=== PATIENT | female | born 1975 | race American Indian/Alaskan Native ===

== ENCOUNTER → 2020-03-22 14:40 | Outpatient (BNVA) | payer SELFPAY | PROVIDERS: PCP Nurse Practitioner Family; Visit Provider Surgery | DX: N64.4 Mastodynia (principal); N63.11 Unspecified lump in the right breast, upper outer quadrant; D05.11 Intraductal carcinoma in situ of right breast; Z92.3 Personal history of irradiation | CPT/HCPCS: 99212 ==

== ENCOUNTER 2020-03-28 08:52 | Outpatient (REF) | payer SELFPAY ==
--- NOTE | 2020-03-28 08:58 | US_ITS ---
EXAMINATION: US ULTRASOUND-GUIDED CYST ASPIRATION BREAST, RIGHT CLINICAL INFORMATION: Right breast pain upper outer quadrant related to fibrocystic changes. 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 Aspiration for therapeutic relief, discard fluid. COMPARISON: Ultrasound right breast 01/01/2020, 09/08/2019 FINDINGS: Proper informed consent is obtained from the patient after discussion of the procedure, potential risks and complications, and alternatives. Patient was given an opportunity for questions. The patient appeared to understand. The patient consented to the procedure and signed the consent form. LOCATION: Upper outer quadrant right breast. GUIDANCE: Ultrasound-guided; aseptic technique. LESION 1: Simple cyst upper outer quadrant 7 cm from nipple 1.6 x 1.1 cm. APPROACH: Lateral medial ANESTHESIA: 6 mL 1% lidocaine NEEDLE: 23-gauge straight needle. ASPIRATION: 1 mL transparent straw-colored fluid aspirated and discarded as per local practice protocol. LESION 2: There is a smaller cyst also noted in the symptomatic area, more central and deeper from skin, measuring 1.0 x 0.7 cm. This is also aspirated from lateral medial approach and 6 mL 1% lidocaine local anesthesia. An 18-gauge spinal needle was used for aspiration with 0.5 mL similar fluid, also discarded. US/US breast RT limited IMPRESSION: 2 simple cysts upper outer right breast aspirated for therapeutic relief right breast pain. ASSESSMENT: BI-RADS 2: Benign RECOMMENDATION: Annual bilateral mammography. This patient's information was entered into a reminder system with a target due date for their next mammogram.
--- NOTE | 2020-03-28 08:58 | US_ITS ---
EXAMINATION: US ULTRASOUND-GUIDED CYST ASPIRATION BREAST, RIGHT CLINICAL INFORMATION: Right breast pain upper outer quadrant related to fibrocystic changes. 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 Aspiration for therapeutic relief, discard fluid. COMPARISON: Ultrasound right breast 01/01/2020, 09/08/2019 FINDINGS: Proper informed consent is obtained from the patient after discussion of the procedure, potential risks and complications, and alternatives. Patient was given an opportunity for questions. The patient appeared to understand. The patient consented to the procedure and signed the consent form. LOCATION: Upper outer quadrant right breast. GUIDANCE: Ultrasound-guided; aseptic technique. LESION 1: Simple cyst upper outer quadrant 7 cm from nipple 1.6 x 1.1 cm. APPROACH: Lateral medial ANESTHESIA: 6 mL 1% lidocaine NEEDLE: 23-gauge straight needle. ASPIRATION: 1 mL transparent straw-colored fluid aspirated and discarded as per local practice protocol. LESION 2: There is a smaller cyst also noted in the symptomatic area, more central and deeper from skin, measuring 1.0 x 0.7 cm. This is also aspirated from lateral medial approach and 6 mL 1% lidocaine local anesthesia. An 18-gauge spinal needle was used for aspiration with 0.5 mL similar fluid, also discarded. US/US breast cyst asp RT IMPRESSION: 2 simple cysts upper outer right breast aspirated for therapeutic relief right breast pain. ASSESSMENT: BI-RADS 2: Benign RECOMMENDATION: Annual bilateral mammography. This patient's information was entered into a reminder system with a target due date for their next mammogram.
== END 2020-03-28 08:53 | disposition home or self-care (01) ==
LOC: HO.MAMMO 08:52
PROVIDERS: PCP Nurse Practitioner Family; Visit Provider Surgery
DX: N63.11 Unspecified lump in the right breast, upper outer quadrant (principal)
CPT/HCPCS: 19000; 76642

== ENCOUNTER → 2020-04-05 15:19 | Outpatient (BNVA) | payer SELFPAY | PROVIDERS: PCP Nurse Practitioner Family; Visit Provider Surgery | DX: D05.11 Intraductal carcinoma in situ of right breast (principal); N64.4 Mastodynia; I89.0 Lymphedema, not elsewhere classified; Z92.3 Personal history of irradiation | CPT/HCPCS: 99212 ==

== ENCOUNTER 2020-04-11 15:50 | Emergency (ER) | payer SELFPAY ==
[2020-04-11 17:34] VITALS: BP 125/59; PULSE 71; RESP 16; TEMP 36.8; O2SAT 100; BMI 20.6
--- NOTE | 2020-04-11 17:55 | ED.SKABFB ---
HPI - Skin/Abscess/Foreign Bdy General Chief complaint: Skin/Abscess/Foreign Body Stated complaint: right arm pain Time Seen by Provider: 04/11/20 17:46 Source: patient Mode of arrival: ambulatory Limitations: no limitations History of Present Illness HPI narrative: 45-year-old female with history of breast CA status post cyst aspiration right breast as well as radiation history of DCIS right breast again required excision lumpectomy performed 09/23/[address]. [address] Gamez and also saw the breast center she had a cyst from the right inferior axilla/lateral breast area drained a week ago she reports and since then she has been having burning like sensation there. She does report that she has had this before but worsened after the I& D. She denies any chest pain or shortness of breath. Denies any rash or swelling. Onset (ago): day(s) Tetanus up to date: yes Location: chest Severity: mild Relieving factors: cold therapy Exacerbating factors: none Context: none Associated symptoms: denies other symptoms Treatments prior to arrival: none Related Data Home Medications Medication Instructions Recorded Confirmed ibuprofen 800 mg tablet 800 mg PO BID tab 03/22/20 03/22/20 lisinopril 5 mg tablet 5 mg PO DAILY 03/22/20 03/22/20 Allergies Allergy/AdvReac Type Severity Reaction Status Date / Time No Known Allergies Allergy Verified 04/05/20 15:37 [No Known Allergies*] Review of Systems Review of Systems: Constitutional: No Weight loss, No Fever, No Chills, No Night Sweats, No Fatigue, No Malaise ENT/Mouth: No Hearing loss, No Ear Pain, No Nasal Congestion, No Sinus Pain, No Hoarseness, No sore throat, No Rhinorrhea, No Swallowing Difficulty Eyes: No Eye Pain, No Swelling, No Redness, No Foreign Body, No Discharge, No Vision Changes Cardiovascular: No Chest Pain, No SOB, No Dyspnea on Exertion, No Orthopnea, No Edema, No Palpitations Respiratory: No Cough, No Sputum, No Wheezing, No Smoke Exposure, No Dyspnea Gastrointestinal: No Nausea, No Vomiting, No Diarrhea, No Constipation, No abdominal Pain, No Hematochezia, No Melena Genitourinary: no irregular bleeding, No Dysuria, No Urinary Frequency, No Hematuria, No Urinary Incontinence, No Urgency, No Flank Pain, No Urinary Flow Changes, No Hesitancy Musculoskeletal: No joint pain, No Myalgias, No Joint Swelling Skin: No Skin Lesions, No rash, burning like sensation to the right axilla/chest area. Neuro: No Weakness, No Numbness, No Paresthesias, No Loss of Consciousness, No Dizziness, No Headache Psych: No Anxiety/Panic Heme/Lymph: No Bruising, No Bleeding,No Lymphadenopathy Endocrine: No Polyuria, No Polydipsia, No Temperature Intolerance Yes all other systems are reviewed and are negative [facility] Past Medical History Medical History Ductal carcinoma in situ (DCIS) of right breast Gout Hypertension Hypothyroidism Surgical History History of lumpectomy of right breast Family History Family History Daughter No problems noted. Social History Social History Smoking Status: Never smoker Use of substances other than those prescribed or required for medical reasons: No Advance Directives: No Advance Directives Information Provided: Yes Physical Exam Vital Signs: Vital Signs: Last Vital Signs Temp 98.2 F 04/11/20 17:34 Pulse 71 04/11/20 17:34 Resp 16 04/11/20 17:34 BP 125/59 L 04/11/20 17:34 Pulse Ox 100 04/11/20 17:34 Body Mass Index 20.6 Reviewed Const: General: cooperative and healthy appearing; No acute distress or intoxicated appearing Nutritional Appearance: average body habitus Orientation/consciousness: patient oriented x3 HENMT: Head: Yes normal to inspection Ears: hearing grossly normal bilaterally Eyes: General: appearance normal, both eyes and all related structures Visual [place]: normal visual lunsford by confrontation Neck: Neck: Yes normal visual inspection, No positive Brudzinski's sign, No positive Kernig's sign and No tender Thyroid: Thyroid normal Chest: Chest palpation & inspection: normal inspection of the chest Chest/axillae images: 1. 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 Resp: Effort & Inspection: normal respiratory effort Cardio: Jugular venous distension: no JVD : General: Yes no CVA tenderness Back/Spine/Pelvis: Back: no CVA tenderness Skin: General skin exam: no rashes or lesions noted Neuro: General: patient oriented x3 Extrem: General: Yes normal to inspection Course Course Course Narrative: 180 Correction patient reports that she had the cyst drained on the 28 of March at the breast center and subsequently saw Dr. Gamez in the office I did reviewed office note from Dr. Nessa Gamez on April 05 where she had the similar complaint of the burning like sensation. Moreover there is no signs of acute infection at this location there is the anterior cutaneous branches of the intercostal nerve route from the T1-11 and likely when the aspiration occurred on the this nerve was irritated. At this time given that she did undergo the needle aspiration will get chest x-ray to make sure there is no pneumothorax though clinical suspicion is very low for this. There is no signs infection at this site. Pain is more neurovascular rather than infectious in pathology. 1809 Case signed out to Celestino pending x-ray results if these are fine patient will go home with NSAIDs and follow-up. Discharge Plan Discharge Prescriptions: No Action lisinopril 5 mg tablet 5 mg PO DAILY RF: 0 ibuprofen 800 mg tablet 800 mg PO BID RF: 0
--- NOTE | 2020-04-11 17:57 | XR_ITS ---
EXAMINATION: XR RIBS, RIGHT CLINICAL INFORMATION: AEP positive COMPARISON: None TECHNIQUE: 3 views of the right ribs were obtained. FINDINGS: Lungs are clear. No consolidation, pneumothorax, or pleural effusion. The cardiomediastinal silhouette and pulmonary vasculature are normal. Osseous structures are unremarkable. Ribs are intact. No fractures are identified. XR/XR ribs RT min 3V w CXR1V IMPRESSION: Unremarkable examination.
[2020-04-11] MEDS: Gabapentin 100 MG CAPSULE PO (19:16)
== END 2020-04-11 19:20 | disposition home or self-care (01) ==
PROVIDERS: Emergency Provider Emergency Medicine Emergency Medical Services; PCP Nurse Practitioner Family
DX: M79.601 Pain in right arm (principal); I10 Essential (primary) hypertension; Z79.899 Other long term (current) drug therapy
CPT/HCPCS: 71101; 99283; 99284

== ENCOUNTER → 2020-06-29 15:15 | Outpatient (BNVA) | payer OTHER, SELFPAY | PROVIDERS: PCP Nurse Practitioner Family; Visit Provider Surgery | DX: D05.11 Intraductal carcinoma in situ of right breast (principal) | CPT/HCPCS: 99212 ==

== ENCOUNTER → 2020-07-25 10:54 | Outpatient (BNV) | payer MEDICAID, OTHER, SELFPAY | PROVIDERS: Visit Provider Internal Medicine | DX: D05.11 Intraductal carcinoma in situ of right breast (principal) | CPT/HCPCS: 99212; 99213; 99214 ==

== ENCOUNTER → 2020-08-26 10:52 | Outpatient (BNVA) | payer OTHER, SELFPAY | PROVIDERS: PCP Nurse Practitioner Family; Visit Provider Surgery | DX: D05.11 Intraductal carcinoma in situ of right breast (principal); I89.0 Lymphedema, not elsewhere classified | CPT/HCPCS: 99212 ==

== ENCOUNTER 2020-09-06 14:46 | Outpatient (REF) | payer OTHER, SELFPAY ==
--- NOTE | ~2020-09-06 | MM_ITS ---
EXAMINATION: MM DIAGNOSTIC DIGITAL BREAST TOMOSYNTHESIS, BILATERAL US DIAGNOSTIC ULTRASOUND BREAST, BILATERAL CLINICAL INFORMATION: 45-year-old with recent right breast pain lower inner and posterior upper outer treated with course antibiotics, finished within past 36 hours. History right lumpectomy for breast cancer 09/23/2019, and RT 11/2019. Prior history fibrocystic changes. Due for yearly. COMPARISON: 09/01/2019, 01/29/2019, 09/05/2018, 03/07/2018, 08/12/2017, 05/22/2016, 03/25/2015; right breast needle localization 09/23/2019, stereotactic biopsy right breast 09/08/2019. TECHNIQUE: Digital breast tomosynthesis is performed in both the craniocaudal and mediolateral oblique views along with computer-aided detection (CAD). Synthesized 2D images are generated from the tomosynthesis. Additional right breast views with scar marker is obtained. Additional magnification right CC and right ML views obtained. Ultrasound left breast is targeted to the upper outer quadrant. Ultrasound right breast is targeted to the areas of clinical concern lower inner quadrant and upper outer quadrant and axilla. Grayscale imaging and color Doppler are performed without and with harmonics. FINDINGS: The breasts are heterogeneously dense, which may obscure small masses (ACR BI-RADS breast composition Category c). There is fibrocystic parenchymal pattern greater on left. Waxing and waning masses are seen, one may be new posterior 2:00 position left breast. There are minor postsurgical changes on right. No mass or architectural abnormality or abnormal calcifications. Ultrasound left breast demonstrates numerous simple cysts in the posterior upper outer quadrant, largest 2.2 cm in diameter. There is no solid mass or complex cyst. Findings correspond to the mammography exam. Ultrasound right breast demonstrates no cystic or solid mass or architectural abnormality. No skin thickening or edema tracking in soft tissue planes. No focal duct ectasia or hyperemia. No axillary adenopathy. Results are discussed with the patient at time of visit. Patient notes she has upcoming appointment with surgeon for follow-up. MM/MM tomosynthesis diagnostic BI IMPRESSION: 1. No mammographic evidence of malignancy or focal inflammatory changes. 2. Fibrocystic changes with numerous cysts upper outer left breast. 3. Unremarkable targeted right breast ultrasound. ASSESSMENT: BI-RADS 2: Benign RECOMMENDATION: 1. Patient should be managed based on the clinical impression. 2. Otherwise, routine annual screening mammography. This patient's information was entered into a reminder system with a target due date for their next mammogram.
== END 2020-09-06 14:47 | disposition home or self-care (01) ==
LOC: HO.MAMMO 14:46
PROVIDERS: Visit Provider Internal Medicine
DX: D05.11 Intraductal carcinoma in situ of right breast (principal)
CPT/HCPCS: 76642; 77062; 77066

== ENCOUNTER → 2020-09-27 15:44 | Outpatient (BNVA) | payer MEDICAID, SELFPAY | PROVIDERS: PCP Nurse Practitioner Family; Visit Provider Surgery | DX: M79.89 Other specified soft tissue disorders (principal); D05.11 Intraductal carcinoma in situ of right breast | CPT/HCPCS: 99212 ==

== ENCOUNTER 2020-10-05 14:56 | Outpatient (REF) | payer MEDICAID, SELFPAY ==
--- NOTE | ~2020-10-05 | US_ITS ---
EXAMINATION: US DIAGNOSTIC ULTRASOUND BREAST, RIGHT CLINICAL INFORMATION: 45-year-old with history right lumpectomy for breast cancer 09/23/2019, and RT 11/2019. Prior history fibrocystic changes. Palpable cord posterior right axilla on clinical exam. Right axillary swelling. Tenderness upper outer right breast noted by patient. COMPARISON: Mammography 09/06/2020, ultrasound breasts 09/06/2020. TECHNIQUE: Ultrasound right breast and axilla is performed using grayscale imaging and color Doppler without and with harmonics. Additional imaging extended around posterior lateral right chest wall in area of symptoms as directed by the patient. FINDINGS: There is no focal suspicious finding. There is no solid mass, architectural abnormality, duct ectasia, or edema in the soft tissue planes. There are 2 incidental cysts right breast upper outer quadrant 9:00 position, both under 1 cm and anechoic with increased through-transmission of sound. There is no hyperemia. Additional imaging right axilla shows no lymphadenopathy. There is no axillary venous thrombosis. Results are discussed with the patient at time of visit. US/US breast RT limited IMPRESSION: 1. Unremarkable targeted right breast ultrasound. 2. No axillary adenopathy or axillary venous thrombosis. 3. Two small incidental cysts posterior lateral right breast, under 1 cm. ASSESSMENT: BI-RADS 2: Benign RECOMMENDATION: 1. Patient should be managed based on the clinical impression. 2. Otherwise, annual screening mammography. This patient's information was entered into a reminder system with a target due date for their next mammogram.
== END 2020-10-05 14:57 | disposition home or self-care (01) ==
LOC: HO.MAMMO 14:56
PROVIDERS: Visit Provider Surgery
DX: D05.11 Intraductal carcinoma in situ of right breast (principal); M79.89 Other specified soft tissue disorders
CPT/HCPCS: 76642

== ENCOUNTER 2020-10-27 11:27 | Outpatient (REF) | payer MEDICAID, SELFPAY ==
--- NOTE | ~2020-10-27 | CT_ITS ---
EXAMINATION: CT ANGIOGRAM OF THE CHEST WITH AND WITHOUT CONTRAST (CT PULMONARY ANGIOGRAM FOR PE) CLINICAL INFORMATION: Reason for Exam rt chest pain. History right lumpectomy for DCIS 09/23/2019, RT 11/2019. COMPARISON: Chest radiograph 04/11/2020 TECHNIQUE: Prior to contrast administration, noncontrast localization images were obtained. Subsequently, multidetector volumetric imaging was performed from the thoracic inlet to below the diaphragms following the administration of 80 mL Omnipaque 350 intravenous contrast. Sagittal, coronal, and MIP oblique sagittal reformatted images were obtained on the CT workstation, uploaded to PACS, and reviewed. This CT examination was performed using dose optimization techniques as appropriate, variously including the following: *Automated exposure control *Adjustment of mA and/or kV according to patient size (this includes techniques or standardized protocols for targeted exams where dose is matched to indication/reason for exam; i.e. extremities or head) *Use of iterative reconstruction technique Total exam dose-length product 80 mGy-cm FINDINGS: QUALITY OF STUDY/CONTRAST BOLUS: Satisfactory. PULMONARY ARTERIES: No central or segmental pulmonary emboli. THORACIC AORTA: No aneurysm or dissection. LUNG: There is no airspace consolidation or groundglass opacity. No mass or nodule. Some borderline bilateral apical pleural-parenchymal scarring is present. There are minor accentuated subpleural lines right anterior lateral chest likely related to the radiation therapy. No pneumothorax. PLEURA: No pleural thickening or effusion. MEDIASTINUM: Normal heart size. No pericardial effusion. No hilar or mediastinal lymphadenopathy. No evidence of septal bowing or right heart strain. CHEST WALL/AXILLA: No axillary or internal mammary lymphadenopathy. OSSEOUS STRUCTURES: No acute or suspicious osseous abnormality. UPPER ABDOMEN: Unremarkable. CT/CT angio chest PE protocol IMPRESSION: 1. No pulmonary embolism. No thoracic aneurysm or dissection. 2. Lungs clear. No airspace consolidation, pneumothorax, effusion. VTE: negative
[2020-10-27] MEDS: iohexoL 350 MG/ML 100 ML INFUS..BTL IV (12:20)
== END 2020-10-27 11:28 | disposition home or self-care (01) ==
LOC: HO.CT 11:27
PROVIDERS: PCP Nurse Practitioner Family; Visit Provider Internal Medicine
DX: R07.89 Other chest pain (principal)
CPT/HCPCS: 71275; Q9967

== ENCOUNTER 2020-10-31 18:54 | Emergency (ER) | payer MEDICAID, SELFPAY ==
[2020-10-31 18:57] VITALS: BP 141/66; PULSE 76; RESP 18; TEMP 36.8; O2SAT 99; BMI 20.2
[2020-10-31 20:00] VITALS: BP 133/64; PULSE 77; RESP 16; O2SAT 100
[2020-10-31 21:17] LABS: Appearance Urine CLEAR; Color Urine YELLOW; Glucose Urine UA NEG (NEG); Leukocyte Esterase Urine NEG (NEG); Nitrite Urine NEG (NEG); Specific Gravity - Urine 1.025 (1.005-1.025); Urine Blood NEG (NEG); Urine Ketones 5 MG/DL (NEG); Urine Protein NEG (NEG-TRACE)
--- NOTE | 2020-10-31 21:20 | ED_ITS ---
HPI - General Adult General Chief complaint: General Medical Stated complaint: Multiple Complaints Time Seen by Provider: 10/31/20 21:20 Source: patient Mode of arrival: ambulatory History of Present Illness HPI narrative: This is a 45-year-old female who presents with decreased hearing this is not associated with fevers, chills, headache, speech deficits, or tooth pain. Otherwise, patient denies shortness of breath, chest pain/palpitations, urinary pain/burning/frequency. Related Data Home Medications Medication Instructions Recorded Confirmed ibuprofen 800 mg tablet 800 mg PO BID tab 03/22/20 08/26/20 lisinopril 5 mg tablet 10 mg PO DAILY 03/22/20 10/26/20 levothyroxine 125 mcg PO DAILY 07/25/20 08/26/20 topiramate 25 mg tablet 25 mg PO BEDTIME PRN 08/26/20 10/26/20 Previous Rx's Medication Instructions Recorded gabapentin 100 mg PO TID #30 cap 04/11/20 Allergies Allergy/AdvReac Type Severity Reaction Status Date / Time No Known Allergies Allergy Verified 04/05/20 15:37 [No Known Allergies*] Review of Systems Review of Systems: Pertinent positives and negatives as stated in HPI 10 point review of systems is otherwise negative. PMFSH Past Medical History Source: nursing notes reviewed Medical History Ductal carcinoma in situ (DCIS) of right breast Gout Hypertension Hypothyroidism Surgical History History of bilateral tubal ligation (2003) History of endometrial ablation (2010) History of lumpectomy of right breast (10/07/19) History of right breast biopsy (09/08/19) Family History Family History Daughter Thyroid cancer Paternal Grandmother Breast cancer Thyroid cancer Diabetes Sister Diabetes HTN (hypertension) Sister HTN (hypertension) Sister HTN (hypertension) Sister HTN (hypertension) Sister HTN (hypertension) Father Brain tumor Mother Heart attack Social History Social History Alcohol intake: current Alcohol intake frequency: holidays/special occasions only Patient Tobacco Use Status: Former Tobacco user Cigarette Packs Per Day: 4 Advance Directives: No Patient : No Physical Exam Vital Signs: Vital Signs: Last Vital Signs Temp 98.3 F 10/31/20 18:57 Pulse 77 10/31/20 20:00 Resp 16 10/31/20 20:00 BP 133/64 10/31/20 20:00 Pulse Ox 100 10/31/20 20:00 Body Mass Index 20.2 VITAL SIGNS: Reviewed. GENERAL: Well developed, well nourished, in no acute distress. HEAD: Normocephalic/atraumatic EYES: PERRLA, EOMI intact without pain, no nystagmus EARS: Ext canals without abnormality, right ear with cerumen impaction NOSE: Nares patent bilateral OROPHARYNX: no oral lesions noted, posterior pharynx clear LUNGS: Normal breath sounds. No adventitious sounds or accessory muscle use. SpO2<100> CARDIOVASCULAR: Regular rate and rhythm without noted murmurs ABDOMEN: Soft, non-tender, non-distended with bowel sounds. NEUROLOGIC: Alert and oriented x 4. Strength and sensation to light touch were grossly intact x 4, ambulates without instability, no pronator drift, no facial asymmetry. Course Course Course Narrative: This is a 45-year-old female with history and clinical presentation consistent with hearing in pain symptoms secondary to cerumen impaction. No evidence to suggest intracranial pathology, infection, or anemia. Patient was offered the option to either have the cerumen removed here in the emergency room or to go home and use [id number] methods. She chose to be discharged and use [id number] medications. Medical Decision Making Lab Data Labs: Lab Results 10/31/20 Range/Units 21:06 Urine Color YELLOW Urine Appearance CLEAR Urine pH 6.0 (5.0-8.0) Ur Specific [place] 1.025 (1.005-1.025) Urine Protein NEG (NEG-TRACE) MG/DL Urine Glucose (UA) NEG (NEG) MG/DL Urine Ketones 5 (NEG) MG/DL Urine Blood NEG (NEG) Urine Nitrite NEG (NEG) Ur Leukocyte Esterase NEG (NEG) Discharge Plan Discharge Clinical Impression: Cerumen impaction Patient Disposition: Home, Self-Care Additional Instructions: 1. Resume all home medications as prescribed. 2. Recommend [id number] Debrox for the use of cerumen removal, use as directed on the outside of the bottle. 3. Follow-up with your primary care provider in 2-3 days for re-evaluation. Return to the ER for any acute worsening of symptoms. Prescriptions: No Action levothyroxine 125 mcg Tablet 125 mcg PO DAILY RF: 0 gabapentin 100 mg capsule 100 mg PO TID Qty: 30 RF: 0 lisinopril 5 mg tablet 10 mg PO DAILY RF: 0 ibuprofen 800 mg tablet 800 mg PO BID RF: 0 topiramate 25 mg tablet 25 mg PO BEDTIME PRN (Reason: Migraine Headache) RF: 0 Referrals: [facility] [Primary Care Provider] - 2 days
== END 2020-10-31 21:46 | disposition home or self-care (01) ==
PROVIDERS: Emergency Provider Student in an Organized Health Care Education/Training Program
DX: H61.21 Impacted cerumen, right ear (principal)
CPT/HCPCS: 81003; 99283; 99284

== ENCOUNTER → 2020-11-04 09:10 | Outpatient (BNVA) | payer MEDICAID, SELFPAY | PROVIDERS: PCP Nurse Practitioner Family; Referring Provider Nurse Practitioner Family; Visit Provider Surgery | DX: D05.11 Intraductal carcinoma in situ of right breast (principal); I80.8 Phlebitis and thrombophlebitis of other sites | CPT/HCPCS: 99212 ==

== ENCOUNTER 2020-11-08 15:58 | Outpatient (REF) | payer MEDICAID, SELFPAY ==
--- NOTE | ~2020-11-08 | US_ITS ---
EXAMINATION: US ABDOMEN LIMITED CLINICAL INFORMATION: Right lateral rib pain. COMPARISON: None TECHNIQUE: Real-time imaging of the right flank along rib cage. FINDINGS: Imaging through the area of pain right flank, there is no visible mass or mass effect. No abnormal vascularity seen. US/US abdomen limited IMPRESSION: Unremarkable right lateral abdominal ultrasound.
== END 2020-11-08 15:59 | disposition home or self-care (01) ==
LOC: HO.US 15:58
PROVIDERS: Visit Provider Internal Medicine Medical Oncology
DX: I80.9 Phlebitis and thrombophlebitis of unspecified site (principal)
CPT/HCPCS: 76705; 76882

== ENCOUNTER → 2020-12-01 15:45 | Outpatient (BNVA) | payer MEDICAID, SELFPAY | PROVIDERS: PCP Nurse Practitioner Family; Referring Provider Nurse Practitioner Family; Visit Provider Surgery | DX: I80.8 Phlebitis and thrombophlebitis of other sites (principal); D05.11 Intraductal carcinoma in situ of right breast; M25.511 Pain in right shoulder | CPT/HCPCS: 99212 ==

== ENCOUNTER 2020-12-13 21:12 | Emergency (ER) | payer MEDICAID, SELFPAY ==
--- NOTE | ~2020-12-13 | XR_ITS ---
EXAMINATION: XR CHEST CLINICAL INFORMATION: Chest pain COMPARISON: CT angiogram chest 10/27/2020 TECHNIQUE: Frontal view of the chest was obtained. FINDINGS: No significant abnormality is noted involving the heart, lungs, mediastinum, bony thorax or soft tissues. XR/XR chest 1V IMPRESSION: Unremarkable examination.
--- NOTE | ~2020-12-13 | CT_ITS ---
EXAMINATION: CT ANGIOGRAM OF THE CHEST WITH AND WITHOUT CONTRAST (CT PULMONARY ANGIOGRAM FOR PE) CLINICAL INFORMATION: Reason for Exam cp COMPARISON: 10/27/2020 TECHNIQUE: Prior to contrast administration, noncontrast localization images were obtained. Subsequently, multidetector volumetric imaging was performed from the thoracic inlet to below the diaphragms following the administration of 80 mL Omnipaque 350 intravenous contrast. No contrast reaction reported Sagittal, coronal, and MIP oblique sagittal reformatted images were obtained on the CT workstation, uploaded to PACS, and reviewed. This CT examination was performed using dose optimization techniques as appropriate, variously including the following: *Automated exposure control *Adjustment of mA and/or kV according to patient size (this includes techniques or standardized protocols for targeted exams where dose is matched to indication/reason for exam; i.e. extremities or head) *Use of iterative reconstruction technique Total exam dose-length product 186 mGy-cm FINDINGS: QUALITY OF STUDY/CONTRAST BOLUS: Satisfactory. PULMONARY ARTERIES: No central or segmental pulmonary emboli. THORACIC AORTA: No aneurysm or dissection. LUNG: No focal consolidation, nodules or masses. Stable subpleural reticulation at the lung apices and anterior segment of the right upper lobe. PLEURA: No pleural effusion or pneumothorax. MEDIASTINUM: Normal heart size. No pericardial effusion. No hilar or mediastinal lymphadenopathy. No evidence of septal bowing or right heart strain. CHEST WALL/AXILLA: No axillary or internal mammary lymphadenopathy. OSSEOUS STRUCTURES: No acute or suspicious osseous abnormality. UPPER ABDOMEN: Unremarkable. No reflux of contrast into the hepatic veins to suggest elevated right heart pressures. CT/CT angio chest PE protocol IMPRESSION: No pulmonary embolism. No aortic aneurysm or dissection. No pneumonitis or parenchymal consolidation. VTE: negative
--- NOTE | 2020-12-13 21:15 | ECG_ITS ---
Test Reason : CP Blood Pressure : / mmHG Vent. Rate : 065 BPM Atrial Rate : 036 BPM P-R Int : 000 ms QRS Dur : 066 ms QT Int : 396 ms P-R-T Axes : 000 034 008 degrees QTc Int : 411 ms Normal sinus rhythm Septal infarct (cited on or before 13-DEC-2020) Abnormal ECG When compared with ECG of 13-DEC-2020 21:24, No significant changes seen Referred By: Vj Watts Electronically Signed By:Jose A Gaona
--- NOTE | 2020-12-13 21:20 | ECG_ITS ---
Test Reason : CHEST PAIN Blood Pressure : / mmHG Vent. Rate : 073 BPM Atrial Rate : 073 BPM P-R Int : 148 ms QRS Dur : 072 ms QT Int : 374 ms P-R-T Axes : -16 029 036 degrees QTc Int : 412 ms Normal sinus rhythm Septal infarct , age undetermined Abnormal ECG When compared with ECG of 27-MAR-2017 15:49, No significant change was found Referred By: Colin Wagner Electronically Signed By:Jose A Gaona
[2020-12-13 21:40] LABS: MANUAL DIFF FLAG NO
[2020-12-13 21:41] VITALS: BP 155/71; PULSE 74; RESP 16; TEMP 37.1; O2SAT 99; BMI 20.5
[2020-12-13 21:41] LABS: Basophils Absolute Auto 0.1 X10*3/uL (0.0-0.2); Basophils Percent Auto 0.7 % (0-2); Eosinophils Absolute Auto 0.1 X10*3/uL (0.0-0.4); Eosinophils Percent Auto 0.8 % (0-4); Hematocrit 39.3 % (37-47); Hemoglobin 13.6 g/dl (12.0-16.0); Imm Gran Abs Auto 0.04 X10*3/uL (0.00-0.03); Imm Gran Pct Auto 0.5 % (0.0-0.4); Lymphocytes Absolute Auto 2.9 X10*3/uL (1.2-4.9); Lymphocytes Percent Auto 33.3 % (20-40); Mean Corpuscular HGB Conc 34.6 g/dl (31.0-35.0); Mean Corpuscular Hemoglobin 32.2 pg (27.0-33.0); Mean Corpuscular Volume 92.9 fL (80-98); Mean Platelet Volume 9.7 fL (9.4-12.3); Monocytes Absolute Auto 0.7 X10*3/uL (0.1-1.2); Monocytes Percent Auto 7.5 % (2-11); Neutrophils Percent Auto 57.2 % (45-73); Platelet Count 183 X10*3/uL (160-400); Red Blood Count 4.23 X10*6/uL (4.20-5.50); Red Cell Distribution Width 12.4 % (11.0-16.0); White Blood Count 8.7 X10*3/uL (4.8-10.8)
[2020-12-13 22:07] LABS: Anion Gap 11 (12-20); Blood Urea Nitrogen 8 mg/dL (9-16); Calcium 9.1 mg/dL (8.4-10.2); Carbon Dioxide 22 mmol/L (22-29); Chloride 112 mmol/L (96-108); Creatinine Clr Calc Pharmacy 77.4; Estimated Glomerular Filt Rate > 60; Glucose Random 99 mg/dL (60-115); Potassium 3.8 mmol/L (3.3-5.1); Sodium 141 mmol/L (135-145)
[2020-12-13 22:26] LABS: Troponin-I High Sensitivity 65.5 ng/L (<3.5-17.0)
[2020-12-13 23:21] VITALS: BP 142/61; PULSE 67; RESP 16; O2SAT 99
--- NOTE | 2020-12-13 23:29 | PC.NURSE ---
Pt ambulating from the waiting room into room 13. Pt primarily Finnish speaking. Pt explains that she is having left sided CP, radiating into left arm with nausea. Pt reports that pain increases with inspiration and movement. Pt denies cardiac history but states her PCP found something and referred her to a Agronomy Advisor, pts appt is tomorrow. IV established, plan for repeat Trop @ 0030. VSS. Pt awaiting primary MD johnson.
--- NOTE | 2020-12-13 23:34 | ED_ITS ---
HPI - Chest Pain General Chief Complaint: Chest Pain Stated Complaint: cp Time Seen by Provider: 12/13/20 23:34 Source: patient Mode of arrival: ambulatory Limitations: no limitations History of Present Illness HPI narrative: Patient with history of hypertension no known coronary artery disease was resting in the bed around 21:00 noticed left-sided chest pain which is sharp tender to touch radiated to left shoulder increases on deep inspiration and left arm movements , slight shortness of breath no nausea no vomiting no cough patient never had similar pain in the past. Patient comes and goes lasting for few seconds no diaphoresis. 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 complaint: chest pain Related Data Home Medications Medication Instructions Recorded Confirmed ibuprofen 800 mg tablet 800 mg PO BID tab 03/22/20 11/04/20 levothyroxine 125 mcg tablet 125 mcg PO DAILY 07/25/20 11/04/20 topiramate 25 mg tablet 25 mg PO BEDTIME PRN 08/26/20 11/04/20 Previous Rx's Medication Instructions Recorded gabapentin 100 mg capsule 100 mg PO TID #30 cap 04/11/20 Allergies Allergy/AdvReac Type Severity Reaction Status Date / Time No Known Allergies Allergy Verified 04/05/20 15:37 [No Known Allergies*] Review of Systems Review of Systems: Constitutional : No Weight loss, No Fever, No Chills ENT/Mouth : No sore throat, No Rhinorrhea Eyes: No Eye Pain, No Swelling Cardiovascular : + Chest Pain, no palpitations Respiratory : No Cough, No Sputum, no shortness of breath Gastrointestinal : no Nausea, No Vomiting, No Diarrhea, No abdominal Pain, no bl ack stools Genitourinary : No Dysuria, No Urinary Frequency Musculoskeletal : No joint pain, No Myalgias, No Joint Swelling Skin : No Skin Lesions, No rash Neuro : No Weakness, No Numbness, No Dizziness, No Headache Psych : No Anxiety/Panic, No Depression Heme/Lymph: No Bruising, No Lymphadenopathy Endocrine : No Polyuria, No Polydipsia All other systems reviewed and are negative [facility] Past Medical History Medical History Ductal carcinoma in situ (DCIS) of right breast Gout Hypertension Hypothyroidism Surgical History History of bilateral tubal ligation (2003) History of endometrial ablation (2010) History of lumpectomy of right breast (10/07/19) History of right breast biopsy (09/08/19) Family History Family History Daughter Thyroid cancer Paternal Grandmother Breast cancer Thyroid cancer Diabetes Sister Diabetes HTN (hypertension) Sister HTN (hypertension) Sister HTN (hypertension) Sister HTN (hypertension) Sister HTN (hypertension) Father Brain tumor Mother Heart attack Social History Social History Alcohol intake: current Alcohol intake frequency: holidays/special occasions only Patient Tobacco Use Status: Former Tobacco user Cigarette Packs Per Day: 4 Advance Directives: No Advance Directives Information Provided: No Patient : No Physical Exam Vital Signs: Vital Signs: Last Vital Signs Temp 98.8 F 12/13/20 21:41 Pulse 58 12/14/20 04:16 Resp 16 12/14/20 04:16 BP 140/48 H 12/14/20 04:16 Pulse Ox 99 12/14/20 01:51 Body Mass Index 21.2 Appearance: Alert. Oriented X3. No acute distress. Eyes: PERRLA, No Nystagmus ENT: Pharynx normal. Oral Mucosa adarsh CVS: Normal heart rate and rhythm. Pulses normal. Tender to touch left 2nd intercostal space and front of the chest no murmur or gallop Respiratory: No respiratory distress. Equal air entry bilateral, no wheezing/rales/rhonchi Abdomen: Soft and nontender. Bowel sounds are present, no mass palpable, no CVA tenderness Skin: Skin warm and dry. Normal skin color. Normal skin turgor. Extremities: No lower extremity edema. No calf tenderness Neuro: Oriented X 3. No motor deficit. No sensory deficit.No cerebellar signs , cranial nerves II-XII intact MDM - Chest Pain MDM Narrative Medical decision making narrative: Patient atypical chest pain sharp in corrected tender to touch with no acute ischemic changes in the EKG high s ensitive troponin is elevated will repeat troponin give aspirin unlikely ischemic in nature. Will check D-dimer also to rule out PE 1:00 troponin is 1603.1 increased from 65.5 in 3 hours. Repeat EKG done which is normal sinus rhythm no acute ST wave changes early repolarization change in in lateral leads similar to that in the 1st EKG patient still complaining of pain in the left arm and the left chest. Patient was given 1 nitroglycerin sublingual without any response Case discussed Dr. Gaona heparin , CTA if pain continues transfer to [facility] Patient D-dimer 300 will do CTA chest. Patient's CTA chest negative responded to 2nd dose of nitro glycerin to pain level 10 now 120 am: Patient was given 4 mg of morphine of feeling much better still complaining of pain 06/22 4 am : Case discussed with Dr. Lares stakes player at [facility] who look at all the 3 EKGs which did not show any acute ischemic changes advised patient to be admitted to CCU at [facility] further evaluation. Patient is on heparin drip and nitroglycerin drip started Medical Records Data Attestation: I reviewed the patient's medical records. Lab Data Attestation: I reviewed the patient's lab results. Result diagrams: 12/13/20 21:34 12/13/20 21:34 Labs: Lab Results 12/13/20 12/13/20 12/13/20 Range/Units 21:34 21:34 21:34 WBC 8.7 (4.8-10.8) X10*3/uL RBC 4.23 (4.20-5.50) X10*6/uL Hgb 13.6 (12.0-16.0) g/dl Hct 39.3 (37-47) % MCV 92.9 (80-98) fL MCH 32.2 (27.0-33.0) pg MCHC 34.6 (31.0-35.0) g/dl RDW 12.4 (11.0-16.0) % Plt Count 183 (160-400) X10*3/uL MPV 9.7 (9.4-12.3) fL Immature Gran % (Auto) 0.5 H (0.0-0.4) % Neut % (Auto) 57.2 (45-73) % Lymph % (Auto) 33.3 (20-40) % [place] % (Auto) 7.5 (2-11) % Eos % (Auto) 0.8 (0-4) % Baso % (Auto) 0.7 (0-2) % Lymph # (Auto) 2.9 (1.2-4.9) X10*3/uL [place] # (Auto) 0.7 (0.1-1.2) X10*3/uL Eos # (Auto) 0.1 (0.0-0.4) X10*3/uL Baso # (Auto) 0.1 (0.0-0.2) X10*3/uL Abs Immat Gran (auto) 0.04 H (0.00-0.03) X10*3/uL Absolute Neuts (auto) 5.0 (2.0-8.3) X10*3/uL Absolute Nucleated RBC 0.000 (0.0-0.012) X10*3/uL Nucleated RBC % (auto) 0.0 (0.0-0.2) /100WBC PT (9.9-13.0) SEC INR (0.9-1.1) APTT (24.1-38.0) SEC D-Dimer NG/ML Sodium 141 (135-145) mmol/L Potassium 3.8 (3.3-5.1) mmol/L Chloride 112 H (96-108) mmol/L Carbon Dioxide 22 (22-29) mmol/L Anion Gap 11 L (12-20) BUN 8 L (9-16) mg/dL Creatinine 0.71 (0.5-1.4) mg/dL Estim Creat Clear Calc 77.4 Estimated GFR > 60 Random Glucose 99 (60-115) mg/dL Calcium 9.1 (8.4-10.2) mg/dL Troponin I High Sens 65.5 H* (<3.5-17.0) ng/L Beta HCG, Quant < 2 mIU/mL COVID-19 (SANDIE) (Negative) COVID-19 Clin Com 12/14/20 12/14/20 12/14/20 Range/Units 00:04 00:04 01:54 WBC (4.8-10.8) X10*3/uL RBC (4.20-5.50) X10*6/uL Hgb (12.0-16.0) g/dl Hct (37-47) % MCV (80-98) fL MCH (27.0-33.0) pg MCHC (31.0-35.0) g/dl RDW (11.0-16.0) % Plt Count (160-400) X10*3/uL MPV (9.4-12.3) fL Immature Gran % (Auto) (0.0-0.4) % Neut % (Auto) (45-73) % Lymph % (Auto) (20-40) % [place] % (Auto) (2-11) % Eos % (Auto) (0-4) % Baso % (Auto) (0-2) % Lymph # (Auto) (1.2-4.9) X10*3/uL [place] # (Auto) (0.1-1.2) X10*3/uL Eos # (Auto) (0.0-0.4) X10*3/uL Baso # (Auto) (0.0-0.2) X10*3/uL Abs Immat Gran (auto) (0.00-0.03) X10*3/uL Absolute Neuts (auto) (2.0-8.3) X10*3/uL Absolute Nucleated RBC (0.0-0.012) X10*3/uL Nucleated RBC % (auto) (0.0-0.2) /100WBC PT 13.2 H (9.9-13.0) SEC INR 1.2 H (0.9-1.1) APTT 33.0 (24.1-38.0) SEC D-Dimer 300 NG/ML Sodium (135-145) mmol/L Potassium (3.3-5.1) mmol/L Chloride (96-108) mmol/L Carbon Dioxide (22-29) mmol/L Anion Gap (12-20) BUN (9-16) mg/dL Creatinine (0.5-1.4) mg/dL Estim Creat Clear Calc Estimated GFR Random Glucose (60-115) mg/dL Calcium (8.4-10.2) mg/dL Troponin I High Sens 1603.1 H* D (<3.5-17.0) ng/L Beta HCG, Quant mIU/mL COVID-19 (SANDIE) Negative (Negative) COVID-19 Clin Com See Note 12/14/20 Range/Units 03:06 WBC (4.8-10.8) X10*3/uL RBC (4.20-5.50) X10*6/uL Hgb (12.0-16.0) g/dl Hct (37-47) % MCV (80-98) fL MCH (27.0-33.0) pg MCHC (31.0-35.0) g/dl RDW (11.0-16.0) % Plt Count (160-400) X10*3/uL MPV (9.4-12.3) fL Immature Gran % (Auto) (0.0-0.4) % Neut % (Auto) (45-73) % Lymph % (Auto) (20-40) % [place] % (Auto) (2-11) % Eos % (Auto) (0-4) % Baso % (Auto) (0-2) % Lymph # (Auto) (1.2-4.9) X10*3/uL [place] # (Auto) (0.1-1.2) X10*3/uL Eos # (Auto) (0.0-0.4) X10*3/uL Baso # (Auto) (0.0-0.2) X10*3/uL Abs Immat Gran (auto) (0.00-0.03) X10*3/uL Absolute Neuts (auto) (2.0-8.3) X10*3/uL Absolute Nucleated RBC (0.0-0.012) X10*3/uL Nucleated RBC % (auto) (0.0-0.2) /100WBC PT (9.9-13.0) SEC INR (0.9-1.1) APTT (24.1-38.0) SEC D-Dimer NG/ML Sodium (135-145) mmol/L Potassium (3.3-5.1) mmol/L Chloride (96-108) mmol/L Carbon Dioxide (22-29) mmol/L Anion Gap (12-20) BUN (9-16) mg/dL Creatinine (0.5-1.4) mg/dL Estim Creat Clear Calc Estimated GFR Random Glucose (60-115) mg/dL Calcium (8.4-10.2) mg/dL Troponin I High Sens 2510.9 H* D (<3.5-17.0) ng/L Beta HCG, Quant mIU/mL COVID-19 (SANDIE) (Negative) COVID-19 Clin Com ECG Data ECG #1: Attestation: I personally reviewed and interpreted this ECG as follows: Interpretation: Normal sinus rhythm heart rate 73 beats per minute poor progression of R-waves no acute ST T wave changes normal intervals normal axis impression no acute ischemia Critical Care Time Critical Care Time Critical Care Time: Yes Total Critical Care Time: 55 Attestation: I spent 55 minutes of critical care, with interventions, assessments, speaking to patient, consultants, and family. Discharge Plan Discharge Clinical Impression: Non-STEMI (non-ST elevated myocardial infarction) Patient Disposition: [facility] Transfer Details: To [facility] CCU under Dr. Lares Prescriptions: No Action levothyroxine 125 mcg Tablet 125 mcg PO DAILY RF: 0 gabapentin 100 mg capsule 100 mg PO TID Qty: 30 RF: 0 ibuprofen 800 mg tablet 800 mg PO BID RF: 0 topiramate 25 mg tablet 25 mg PO BEDTIME PRN (Reason: Migraine Headache) RF: 0 Interventions: Acute Care Transfer Worksheet (ED) Last Done: 12/14/20 04:57 Discharge Date/Time: 12/14/20 04:57
--- NOTE | 2020-12-13 23:45 | PC.NURSE ---
at bedside for primary eval.
--- NOTE | 2020-12-14 | ECG_ITS ---
Test Reason : CP Blood Pressure : / mmHG Vent. Rate : 059 BPM Atrial Rate : 059 BPM P-R Int : 156 ms QRS Dur : 074 ms QT Int : 428 ms P-R-T Axes : 045 030 025 degrees QTc Int : 423 ms Sinus bradycardia Otherwise normal ECG When compared with ECG of 14-DEC-2020 00:49, No significant change was found Referred By: Colin Wagner Electronically Signed By:Jose A Gaona
--- NOTE | 2020-12-14 | ECG_ITS ---
Test Reason : CP Blood Pressure : / mmHG Vent. Rate : 063 BPM Atrial Rate : 063 BPM P-R Int : 138 ms QRS Dur : 074 ms QT Int : 396 ms P-R-T Axes : 031 036 010 degrees QTc Int : 405 ms Normal sinus rhythm Normal ECG When compared with ECG of 14-DEC-2020 00:43, Sinus rhythm has replaced Junctional rhythm Referred By: Colin Wagner Electronically Signed By:Jose A Gaona
[2020-12-14] MEDS: Aspirin 81 MG TAB.CHEW 324 MG PO (00:06)
--- NOTE | 2020-12-14 00:07 | PC.NURSE ---
Labs obtained. Pt medicated per JUL.
[2020-12-14 00:15] LABS: INTERNATIONAL NORM RATIO 1.2 (0.9-1.1); Prothrombin Time 13.2 SEC (9.9-13.0)
[2020-12-14 00:18] LABS: D Dimer 300 NG/ML
[2020-12-14 00:38] LABS: Troponin-I High Sensitivity 1603.1 ng/L (<3.5-17.0)
[2020-12-14 00:53] VITALS: BP 145/69; PULSE 67; RESP 16
[2020-12-14 00:54] VITALS: BP 145/69; PULSE 68
[2020-12-14] MEDS: Nitroglycerin 0.4 MG TAB.SUBL SUBLINGUAL ×2 (00:54→01:19)
--- NOTE | 2020-12-14 00:55 | PC.NURSE ---
Repeat EKG obtained per MD order due to elevated Troponin. Pt continues reporting 10/20 CP, medicated with Nitro per JUL. VSS at this time. Pt aware of the possibility of a transfer to [facility].
--- NOTE | 2020-12-14 01:05 | PC.NURSE ---
Pt reports no relief of discomfort with Nitro. aware.
[2020-12-14] MEDS: Heparin Sodium,Porcine 5,000 UNIT/ML VIAL 4100 UNIT IVPUSH (01:16)
[2020-12-14 01:19] VITALS: BP 145/76; PULSE 69
--- NOTE | 2020-12-14 01:19 | PC.NURSE ---
MD at bedside discussing results and plan of care. Pt medicated with Heparin and a second Nitro. Plan for CTA. VSS.
[2020-12-14] MEDS: 0.9 % Sodium Chloride 1,000 ML 999 ML IVCONT (01:21)
[2020-12-14] MEDS: Morphine Sulfate 4 MG/ML CARTRIDGE IVPUSH (01:24)
--- NOTE | 2020-12-14 01:27 | PC.NURSE ---
Pt medicated per JUL. Pt off to CT.
[2020-12-14] MEDS: iohexoL 350 MG/ML 100 ML INFUS..BTL 65 ML IV (01:47)
[2020-12-14 01:49] LABS: HCG Quantitative < 2 mIU/mL
[2020-12-14 01:51] VITALS: BP 128/69; PULSE 58; RESP 16; O2SAT 99
--- NOTE | 2020-12-14 01:54 | PC.NURSE ---
Pt returns from CT. Continues reporting 5/10 left sided chest/arm pain and nausea, denies SOB. VSS. Covid swab obtained. Awaiting CT results.
[2020-12-14 02:09] VITALS: BMI 21.2
[2020-12-14 02:16] LABS: COVID-19 Test Negative (Negative)
[2020-12-14] MEDS: Heparin Sodium,Porcine/1/2NS 25,000 UNIT/250 ML IV.SOLN 6.31 UNIT IVCONT (02:59)
--- NOTE | 2020-12-14 03:03 | PC.NURSE ---
This RN contacting pharmacy multiple times due to discrepancy with Heparin order. Pharmacy reordering Heparin drip. Lab called to add on PTT to earlier specimen. Heparin infusing per protocol with CITLALLI Galvan to cosign. Third troponin obtained and sent. Pt resting in bed at this time, reports pain decreased to a 2/10. Continue to monitor.
[2020-12-14 03:06] VITALS: BP 133/65; PULSE 65; RESP 16
[2020-12-14 03:36] LABS: Troponin-I High Sensitivity 2510.9 ng/L (<3.5-17.0)
--- NOTE | 2020-12-14 04:08 | PC.NURSE ---
This RN contacting pharmacy, again unable to scan in Nitro infusion. Pharmacy to correct. Per pharmacy, Nitro and Heparin are compatible.
[2020-12-14 04:16] VITALS: BP 140/48; PULSE 58; RESP 16
[2020-12-14] MEDS: Nitroglycerin/D5W 100 MG/250 ML INFUS..BTL IVCONT (04:19)
--- NOTE | 2020-12-14 04:23 | PC.NURSE ---
Nitro infusion started, Mandy RN @ bedside to verify dose rate. VSS at this time. Pt aware of plan to be transported to [facility].
--- NOTE | 2020-12-14 04:50 | PC.NURSE ---
EMS at bedside for transport. This RN calling CC to give nurse to nurse.
== END 2020-12-14 04:57 | disposition short-term general hospital (02) ==
PROVIDERS: Emergency Medicine; Emergency Provider Internal Medicine
DX: I21.4 Non-ST elevation (NSTEMI) myocardial infarction (principal); R07.9 Chest pain, unspecified; I10 Essential (primary) hypertension; Z20.822 Contact with and (suspected) exposure to COVID-19; Z79.899 Other long term (current) drug therapy; Z87.891 Personal history of nicotine dependence
CPT/HCPCS: 36415; 71045; 71275; 80048; 84484; 84702; 85025; 85379; 85610; 85730; 87635; 93005; 96361; 96365; 96375; 99285; 99291; J2270; J2405; Q9967

== ENCOUNTER 2020-12-16 08:10 | Outpatient (REF) | payer MEDICAID, SELFPAY ==
--- NOTE | ~2020-12-16 | XR_ITS ---
EXAMINATION: XR SHOULDER, RIGHT CLINICAL INFORMATION: Pain right shoulder COMPARISON: None TECHNIQUE: 3 views of the right shoulder. FINDINGS: The bones and soft tissues are normal. No fracture. Glenohumeral and acromioclavicular alignment is anatomic with normal joint space. No abnormal soft tissue calcifications. XR/XR shoulder RT min 2V IMPRESSION: Unremarkable right shoulder exam.
== END 2020-12-16 08:11 | disposition home or self-care (01) ==
LOC: HO.HOSX 08:10
PROVIDERS: Visit Provider Physician Assistant
DX: M25.511 Pain in right shoulder (principal); G25.89 Other specified extrapyramidal and movement disorders
CPT/HCPCS: 73030; 99202

== ENCOUNTER → 2021-01-02 14:07 | Outpatient (BNVA) | payer MEDICAID, SELFPAY | PROVIDERS: PCP Nurse Practitioner Family; Referring Provider Nurse Practitioner Family; Visit Provider Nurse Practitioner Family | DX: I21.4 Non-ST elevation (NSTEMI) myocardial infarction (principal); I25.42 Coronary artery dissection; I10 Essential (primary) hypertension; Z98.890 Other specified postprocedural states | CPT/HCPCS: 99212 ==

== ENCOUNTER 2021-01-19 10:45 | Outpatient (REF) | payer MEDICAID, SELFPAY | END 2021-01-19 10:46 | disposition home or self-care (01) | LOC: HO.LAB 10:45 | PROVIDERS: PCP Nurse Practitioner Family; Visit Provider Internal Medicine | DX: Z20.822 Contact with and (suspected) exposure to COVID-19 (principal) | CPT/HCPCS: C9803; U0003; U0005 ==

== ENCOUNTER 2021-02-10 09:49 | Outpatient (REF) | payer MEDICAID, SELFPAY ==
--- NOTE | ~2021-02-10 | CT_ITS ---
EXAMINATION: CT angio head neck CLINICAL INFORMATION: NSTEMI. COMPARISON: No relevant prior imaging. TECHNIQUE: [employer] images were obtained. A CT angiogram of the head and neck was performed in the arterial phase after the intravenous administration of 70 mL Omnipaque 350. Pre and delayed postcontrast images of the head were also obtained. MIP reconstructions were generated in multiple orientations at the acquisition workstation. Multiple three-dimensional surface rendered images and maximum intensity projection images were generated on a dedicated 3-D lab workstation. Arterial stenoses are measured in accordance with NASCET criteria or similar method if applicable. This CT examination was performed using dose optimization techniques as appropriate, including one or more of the following: Automated exposure control, iterative reconstruction, and adjustment of technique factors (mA and/or kVp) according to patient size (this includes techniques or standardized protocols for targeted exams where dose is matched to indication/reason for exam). Total exam dose-length product 2321 mGy-cm FINDINGS: Head: There is no acute intracranial hemorrhage or abnormal extra-axial collection. Postcontrast images reveal no abnormal mass or enhancement within the intracranial compartment. No intracranial mass effect or midline shift. Lateral and third ventricles are normal. No hydrocephalus. Pettit-white matter differentiation is preserved and there is no evidence of acute territorial infarct. The calvarium and skull base are intact. Mastoid air cells and middle ear cavities are well aerated. No active paranasal sinus disease. CT angiogram neck: The aortic arch apex is normal. Origins of the major aortic branches are widely patent. Common carotid arteries and the carotid bifurcations are normal. No stenosis of the extracranial internal carotid arteries. The cervical segments of the vertebral arteries as well as their origins are patent. CT angiogram head: There are small contour abnormality along the undersurfaces of both supraclinoid internal carotid arteries that most likely represent vascular infundibulum at the origins of the posterior communicating arteries. The possibility of small aneurysms in this location is are difficult to completely exclude on the basis of this examination. Intracranial internal carotid arteries are otherwise normal. Intradural vertebral artery segments and basilar artery are normal. Anterior, middle, and posterior cerebral artery complexes are normal. No intracranial large vessel occlusion. Other: Soft tissues of the neck including the thyroid gland are normal. Grossly no pathologically enlarged cervical lymph nodes. No acute osseous finding. Specifically no worrisome lytic osseous lesion. CT/CT angio head neck IMPRESSION: There are small contour abnormalities along the undersurfaces of both supraclinoid internal carotid arteries that most likely represent infundibula at the origins of the posterior communicating arteries. The possibility of tiny aneurysms in these locations is difficult to definitively exclude on the basis of this examination. Otherwise normal CT angiogram of the head and neck.
[2021-02-10] MEDS: iohexoL 350 MG/ML 100 ML INFUS..BTL IV (10:38)
== END 2021-02-10 09:50 | disposition home or self-care (01) ==
LOC: HO.CT 09:49
PROVIDERS: Visit Provider Nurse Practitioner Family
DX: I21.4 Non-ST elevation (NSTEMI) myocardial infarction (principal); I25.42 Coronary artery dissection; R00.2 Palpitations; R42 Dizziness and giddiness
CPT/HCPCS: 70496; 70498; Q9967

== ENCOUNTER 2021-03-02 13:06 | Outpatient (REF) | payer MEDICAID, SELFPAY ==
[2021-03-02 13:28] LABS: MANUAL DIFF FLAG NO
[2021-03-02 14:44] LABS: Basophils Percent Auto 0.6 % (0-2); Eosinophils Absolute Auto 0.1 X10*3/uL (0.0-0.4); Hematocrit 40.5 % (37-47); Hemoglobin 13.5 g/dl (12.0-16.0); Imm Gran Abs Auto 0.03 X10*3/uL (0.00-0.03); Imm Gran Pct Auto 0.4 % (0.0-0.4); Lymphocytes Absolute Auto 2.4 X10*3/uL (1.2-4.9); Lymphocytes Percent Auto 33.4 % (20-40); Mean Corpuscular HGB Conc 33.3 g/dl (31.0-35.0); Mean Corpuscular Hemoglobin 31.8 pg (27.0-33.0); Mean Corpuscular Volume 95.3 fL (80-98); Mean Platelet Volume 10.8 fL (9.4-12.3); Monocytes Absolute Auto 0.5 X10*3/uL (0.1-1.2); Monocytes Percent Auto 6.8 % (2-11); Neutrophils Absolute Auto 4.2 X10*3/uL (2.0-8.3); Neutrophils Percent Auto 57.8 % (45-73); Platelet Count 190 X10*3/uL (160-400); Red Blood Count 4.25 X10*6/uL (4.20-5.50); Red Cell Distribution Width 12.9 % (11.0-16.0); White Blood Count 7.2 X10*3/uL (4.8-10.8)
[2021-03-02 14:59] LABS: Alanine Aminotransferase 52 U/L (0-31); Albumin Level 4.3 g/dL (3.5-5.0); Alkaline Phosphatase 81 U/L (39-117); Anion Gap 11 (12-20); Aspartate Amino Transferase 32 U/L (5-31); Bilirubin Total 0.3 mg/dL (0.0-1.0); Blood Urea Nitrogen 12 mg/dL (9-16); Calcium 9.9 mg/dL (8.4-10.2); Carbon Dioxide 26 mmol/L (22-29); Chloride 108 mmol/L (96-108); Cholesterol 139 mg/dL; Estimated Average Glucose 103 mg/dL; Estimated Glomerular Filt Rate > 60; Glucose Random 80 mg/dL (60-115); HDL Cholesterol 54 mg/dL; Hemoglobin A1c % 5.2 %; LDL Cholesterol Calculated 64 mg/dl; Potassium 4.1 mmol/L (3.3-5.1); Sodium 141 mmol/L (135-145); Total Protein 7.2 g/dL (6.5-8.0); Triglycerides 106 mg/dL
[2021-03-02 15:22] LABS: T4 Thyroxine 5.3 ug/dL (4.5-12.0); Thyroid Stimulating Hormone 1.02 uIU/mL (0.32-4.0); Vitamin D 25-OH Total 37.8 ng/mL (>30)
[2021-03-03 13:47] LABS: Triiodothyronine T3 Total 81 ng/dL (76-181)
[2021-03-06 12:12] LABS: TS Negative Control Passed; TS Panel A 0; TS Panel B 0; TS Positive Control Passed; TSpotTB Negative (SeeBelow)
== END 2021-03-02 13:07 | disposition home or self-care (01) ==
LOC: HO.LAB 13:06
PROVIDERS: PCP Nurse Practitioner Family; Visit Provider Nurse Practitioner Family
DX: Z00.00 Encounter for general adult medical examination without abnormal findings (principal); G47.33 Obstructive sleep apnea (adult) (pediatric); N89.8 Other specified noninflammatory disorders of vagina; R00.0 Tachycardia, unspecified
CPT/HCPCS: 36415; 80053; 80061; 82306; 83036; 84436; 84443; 84480; 85025; 86481; 99212

== ENCOUNTER 2021-03-06 08:46 | Outpatient (REF) | payer MEDICAID, SELFPAY ==
--- NOTE | ~2021-03-06 | CT_ITS ---
EXAMINATION: CT ANGIOGRAM ABDOMEN AND PELVIS CLINICAL INFORMATION: NSTEMI COMPARISON: None TECHNIQUE: Multiple axial images were obtained through the abdomen and pelvis following the administration of 80 mL of Omnipaque 350 intravenous contrast. Images were reviewed on a dedicated 3-D workstation. This CT examination was performed using dose optimization techniques as appropriate, variously including the following: *Automated exposure control *Adjustment of mA and/or kV according to patient size (this includes techniques or standardized protocols for targeted exams where dose is matched to indication/reason for exam; i.e. extremities or head) *Use of iterative reconstruction technique DLP: 214 mGy-cm FINDINGS: Lower chest: Unremarkable. There are no pleural effusions. Liver: Normal in size and attenuation. No focal lesions. Gallbladder and bile ducts: The gallbladder is normal. No intrahepatic or extrahepatic biliary ductal dilatation. Spleen: Normal in size and attenuation. Pancreas: Unremarkable. Adrenal glands: Unremarkable. Right kidney: The right kidney is normal. There is no hydronephrosis or hydroureter. Left kidney: The left kidney is normal. There is no hydronephrosis or hydroureter. Lymph nodes: There is no lymphadenopathy in the abdomen or pelvis. Gastrointestinal tract: The stomach, small, and large bowel are normal in course and caliber. The appendix is identified and is within normal limits. Urinary bladder: The bladder is normal. Pelvic organs: The uterus is unremarkable. Vasculature: The abdominal aorta is normal in course and caliber. The celiac artery, SMA, and NAHID are patent. The bilateral renal arteries are patent. There is a tiny right upper pole accessory renal artery. 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 Additional findings: There is no intraperitoneal free air or fluid. Soft tissues: Unremarkable. Osseous structures: No lytic or blastic lesions identified. 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 Given the clinical history of NSTEMI in a 45-year-old, these findings are suspicious for vasculitis.
[2021-03-06] MEDS: iohexoL 350 MG/ML 100 ML INFUS..BTL IV (09:51)
== END 2021-03-06 08:47 | disposition home or self-care (01) ==
LOC: HO.CT 08:46
PROVIDERS: Visit Provider Nurse Practitioner Family
DX: I21.4 Non-ST elevation (NSTEMI) myocardial infarction (principal); I25.42 Coronary artery dissection; R00.2 Palpitations; R42 Dizziness and giddiness
CPT/HCPCS: 74174; Q9967

== ENCOUNTER 2021-03-29 13:43 | Outpatient (REF) | payer MEDICAID, SELFPAY ==
[2021-03-29 15:02] LABS: C Reactive Protein 0.08 mg/dL (< or = 0.50)
[2021-03-29 15:23] LABS: Erythrocyte Sedimentation Rate 7 MM/HR (0-20)
== END 2021-03-29 13:44 | disposition home or self-care (01) ==
LOC: HO.LAB 13:43
PROVIDERS: PCP Nurse Practitioner Family; Referring Provider Nurse Practitioner Family; Visit Provider Internal Medicine Cardiovascular Disease
DX: I25.42 Coronary artery dissection (principal); I72.2 Aneurysm of renal artery; Z79.899 Other long term (current) drug therapy
CPT/HCPCS: 36415; 85652; 86140; 99212

== ENCOUNTER → 2021-03-30 15:04 | Outpatient (REF) | payer MEDICAID, SELFPAY | LOC: HO.SL 15:04 | PROVIDERS: PCP Nurse Practitioner Family; Visit Provider Nurse Practitioner Family | DX: R06.81 Apnea, not elsewhere classified (principal) | CPT/HCPCS: 95806 ==

== ENCOUNTER → 2021-05-25 08:20 | Outpatient (REF) | payer MEDICAID, SELFPAY ==
--- NOTE | 2021-05-25 08:23 | CA_ITS ---
Transthoracic Echocardiogram Patient (Last, First, Middle): Mulu Balderas, Gender: Female Date of : 1975 Age: 46 Procedure Date: 05/25/2021 Procedure Type: Transthoracic Echocardiogram Location: OP Height: 157.48 cm Weight: 58.97 kg BSA: 1.59 m2 Heart Rate: bpm BP: 122 / 82 mmHg Grant Coordinator: JULIANA Referring MD: Jose A Gaona MD Symptoms: I21.4 - Non-ST elevation (NSTEMI) myocardial infarction Study Quality: Fair Conclusions: - Normal left ventricular size, thickness, systolic function, and wall motion. - Normal right ventricular cavity size and systolic function. - There is mild aortic valve regurgitation. Findings Left Ventricle Normal left ventricular size, thickness, systolic function, and wall motion. The visually estimated ejection fraction is between 55-60%. Diastolic function is normal for age. Right Ventricle Normal right ventricular cavity size and systolic function. Atria Both atria are normal in size. Aortic Valve There is a normal trileaflet aortic valve. There is no aortic valve stenosis. There is mild aortic valve regurgitation. Mitral Valve The mitral valve appears normal. There is trace mitral valve regurgitation. There is no mitral valve stenosis. Pulmonic Valve The pulmonic valve is likely normal. Tricuspid Valve Normal tricuspid valve structure and function. There is trace tricuspid valve regurgitation. Normal right atrial pressure. There is no evidence of pulmonary hypertension. Great Vessels All visible segments of the aorta are normal in size. The visualized portions of the pulmonary artery and branches are normal. Venous The inferior vena cava is normal in size and collapses greater than 50% with inspiration. Pericardium/Pleural There is no evidence of pericardial effusion. Prior Study Comparison No prior study available for comparison. Measurements 2D Linear Measurements IVSd: 0.61 0.6-0.9/0.6-1.0 cm LVIDd: 4.35 3.9-5.3/4.2-5.9 cm LVIDd Index: 2.74 2.4-3.2/2.2-3.1 cm/m2 LVIDs: 2.93 2.0-3.6 cm LVPWd: 0.65 0.7-1.1 cm Ao Root: 2.70 2.1-3.5 cm LA Diam: 2.60 2.7-3.8/3.0-4.0 cm LAIDs Index: 1.64 1.5-2.3 cm/m2 LV Mass: 98.31 67-162/88-224 g LV Mass Index: 61.83 43-95/49-115 g/m2 LVOT Diam: 1.90 3.0+(-)1.3 cm 2D Systolic Function EF 4C: 66.80 >55% EF 2C: 67.70 >55% Mitral Valve MV Pk E: 0.97 MV PK A: 0.64 MV Decel Time: 168.00 E/A: 1.50 E'Lateral: 11.70 E'Medial: 9.14 E/E' Med: 10.60 E/E' Lat: 8.30 PHT: 49.00 MVA PHT: 4.49 Decel Dimmit: 5.79 Aortic Valve AoV Pk Issa: 1.54 AoV Mn Issa: 1.04 AoV VTI: 0.35 AoV Pk Grad: 9.00 Aov Mn Grad: 5.00 ROMAN Cont.VTI: 1.92 LVOT LVOT Pk Issa: 1.04 LVOT Mn Issa: 0.72 LVOT VTI: 0.24 LVOT Pk Grad: 4.00 LVOT Mn Grad: 2.00 LVOT Diam: 1.90 LVOT Area: 2.84 Diastolic Function MV Pk E: 0.97 MV Pk A: 0.64 E/A: 1.50 E'Medial: 9.14 E/E' Med: 10.60 E' Laterial: 11.70 E/E' Lat: 8.30 Right Ventricle TAPSE (mm): 26.90 TVS' Issa: 12.10 Tricuspid Valve TR Pk Issa: 2.51 TR Pk Grad: 25.00 RA Press: 3.00 RVSP: 28.00 Great Vessels Aorta Ao Root-2D: 2.70 2.0-3.7 cm Ao Asc: 2.80 2.1-3.4 cm Ao Arch: 2.70 Updated in Other Vendor System with Status of Final Jose A Gaona MD electronically signed on 05/28/2021 8:51:53 PM with status of Final
== END ==
LOC: HO.CARD 08:20
PROVIDERS: Visit Provider Internal Medicine Cardiovascular Disease
DX: I21.4 Non-ST elevation (NSTEMI) myocardial infarction (principal)
CPT/HCPCS: 93306

== ENCOUNTER → 2021-05-31 13:07 | Outpatient (BNVA) | payer MEDICAID, SELFPAY | PROVIDERS: PCP Nurse Practitioner Family; Referring Provider Nurse Practitioner Family; Visit Provider Nurse Practitioner Family | DX: I25.42 Coronary artery dissection (principal); I10 Essential (primary) hypertension; I69.354 Hemiplegia and hemiparesis following cerebral infarction affecting left non-dominant side; I25.2 Old myocardial infarction; Z98.890 Other specified postprocedural states | CPT/HCPCS: 99212 ==

== ENCOUNTER 2021-07-10 16:30 | Outpatient (REF) | payer MEDICAID, SELFPAY ==
--- NOTE | ~2021-07-10 | MR_ITS ---
EXAMINATION: MR ANGIOGRAPHY BRAIN WITHOUT CONTRAST CLINICAL INFORMATION: Headaches. Reported follow-up from aneurysm surgery on 05/17/2021. COMPARISON: Prior CT angiogram from 02/10/2021 TECHNIQUE: 3-D [id number] MR angiography of the [place] of [place] acquired. FINDINGS: The vertebrobasilar vasculature and posterior cerebral arteries are normal. The right internal carotid artery is normal in caliber. There is artifacts along the brown of the left internal carotid artery which are indeterminate, possibly due to a stent graft. The left ICA is otherwise patent. The SCOTT vascular complexes are normal. The MCA vasculature is normal bilaterally. No aneurysm is identified. No vascular malformation is seen. MR/MR angio head wo con IMPRESSION: No visible aneurysm. Linear artifacts along the brown of the left internal carotid artery which may be due to prior placement of a stent graft; clinical correlation. Otherwise, relatively normal MRA of the head.
== END 2021-07-10 16:31 | disposition home or self-care (01) ==
LOC: HO.MRI 16:30
PROVIDERS: Visit Provider Psychiatry & Neurology Vascular Neurology
DX: R51.9 Headache, unspecified (principal)
CPT/HCPCS: 70544

== ENCOUNTER 2021-07-12 14:50 | Outpatient (REF) | payer MEDICAID, SELFPAY ==
--- NOTE | ~2021-07-12 | XR_ITS ---
EXAMINATION: LUMBAR SPINE AND LEFT HIP. CLINICAL INFORMATION: Lumbago with sciatica left side. COMPARISON: None TECHNIQUE: Lumbar spine 3 views. Left hip 2 views. FINDINGS: LUMBAR SPINE: There is normal lumbar lordosis. The vertebral heights, alignment and disc heights are normal. No visible acute fracture, dislocation or subluxation seen. No lytic or sclerotic process seen. The paravertebral soft tissues are normal. LEFT HIP: There is no visible acute fracture, dislocation or lytic process seen. The paravertebral soft tissues are normal. XR/XR lumbar spine 2-3V IMPRESSION: Unremarkable lumbar spine exam. Unremarkable left hip exam.
--- NOTE | ~2021-07-12 | XR_ITS ---
EXAMINATION: LUMBAR SPINE AND LEFT HIP. CLINICAL INFORMATION: Lumbago with sciatica left side. COMPARISON: None TECHNIQUE: Lumbar spine 3 views. Left hip 2 views. FINDINGS: LUMBAR SPINE: There is normal lumbar lordosis. The vertebral heights, alignment and disc heights are normal. No visible acute fracture, dislocation or subluxation seen. No lytic or sclerotic process seen. The paravertebral soft tissues are normal. LEFT HIP: There is no visible acute fracture, dislocation or lytic process seen. The paravertebral soft tissues are normal. XR/XR hip LT min 2V IMPRESSION: Unremarkable lumbar spine exam. Unremarkable left hip exam.
== END 2021-07-12 14:51 | disposition home or self-care (01) ==
LOC: HO.XRAY 14:50
PROVIDERS: PCP Nurse Practitioner Family; Visit Provider Nurse Practitioner Family
DX: M54.42 Lumbago with sciatica, left side (principal)
CPT/HCPCS: 72100; 73502

== ENCOUNTER 2021-07-13 13:47 | Outpatient (REF) | payer MEDICAID, SELFPAY ==
--- NOTE | ~2021-07-13 | US_ITS ---
EXAMINATION: US VENOUS ULTRASOUND WITH DOPPLER LOWER EXTREMITY, LEFT CLINICAL INFORMATION: Left ankle swelling COMPARISON: None TECHNIQUE: Ultrasound of the deep veins is performed from the hip to the calf with compression sonography and color and pulse Doppler assessment. Spectral analysis with color-flow imaging is performed. FINDINGS: There is normal venous compression and respiratory variation and augmented flow. The visualized common femoral vein, superficial femoral vein, profunda femoral vein, popliteal vein, and the trifurcation region shows no evidence of deep venous thrombosis. There is no significant popliteal fossa cyst. No popliteal artery aneurysm. US/US venous duplex LE LT IMPRESSION: No acute DVT demonstrated in the left lower extremity.
== END 2021-07-13 13:48 | disposition home or self-care (01) ==
LOC: HO.US 13:47
PROVIDERS: PCP Nurse Practitioner Family; Visit Provider Nurse Practitioner Family
DX: M25.472 Effusion, left ankle (principal)
CPT/HCPCS: 93971

== ENCOUNTER → 2021-07-31 13:03 | Outpatient (BNVA) | payer MEDICAID, SELFPAY | PROVIDERS: PCP Nurse Practitioner Family; Referring Provider Nurse Practitioner Family; Visit Provider Internal Medicine Cardiovascular Disease | DX: R00.2 Palpitations (principal); I21.4 Non-ST elevation (NSTEMI) myocardial infarction; I10 Essential (primary) hypertension; I69.854 Hemiplegia and hemiparesis following other cerebrovascular disease affecting left non-dominant side; I25.42 Coronary artery dissection; I77.3 Arterial fibromuscular dysplasia; I72.2 Aneurysm of renal artery; F17.210 Nicotine dependence, cigarettes, uncomplicated; Z96.89 Presence of other specified functional implants; Z79.82 Long term (current) use of aspirin; Z79.899 Other long term (current) drug therapy; Z98.890 Other specified postprocedural states | CPT/HCPCS: 93005; 99212 ==

== ENCOUNTER → 2021-08-04 10:45 | Outpatient (BNVA) | payer MEDICAID, SELFPAY | PROVIDERS: PCP Nurse Practitioner Family; Referring Provider Nurse Practitioner Family; Visit Provider Surgery | DX: I80.8 Phlebitis and thrombophlebitis of other sites (principal); D05.11 Intraductal carcinoma in situ of right breast; Z92.3 Personal history of irradiation; I25.2 Old myocardial infarction | CPT/HCPCS: 99212 ==

== ENCOUNTER → 2021-08-10 07:05 | Outpatient (REF) | payer MEDICAID, SELFPAY ==
--- NOTE | 2021-08-10 07:08 | HM_ITS ---
Conclusion: 1. Patient was monitored for total period of 3 days and 20 hours 2. Baseline rhythm is normal sinus with average heart of 72 beats per minute 3. No significant pauses or bradycardia noted 4. Total of 159 PVCs accounting for 0.05% of total burden account for rare PVCs 5. No patient reported events MTDD
== END ==
LOC: HO.CARD 07:05
PROVIDERS: Visit Provider Internal Medicine Cardiovascular Disease
DX: R00.2 Palpitations (principal)
CPT/HCPCS: 93242

== ENCOUNTER 2021-09-06 14:54 | Outpatient (REF) | payer MEDICAID, SELFPAY ==
--- NOTE | ~2021-09-06 | XR_ITS ---
EXAMINATION: XR KNEE, LEFT CLINICAL INFORMATION: Left knee pain. COMPARISON: None TECHNIQUE: Four views of the left knee. FINDINGS: Bones and soft tissues are normal. No fracture or joint effusion. Alignment is anatomic. Joint spaces are well maintained. No abnormal soft tissue calcification. XR/XR knee LT 3V IMPRESSION: Unremarkable left knee.
== END 2021-09-06 14:55 | disposition home or self-care (01) ==
LOC: HO.XRAY 14:54
PROVIDERS: PCP Nurse Practitioner Family; Visit Provider Registered Nurse Community Health
DX: M25.562 Pain in left knee (principal)
CPT/HCPCS: 73562

== ENCOUNTER 2021-09-12 14:54 | Outpatient (REF) | payer MEDICAID, SELFPAY ==
--- NOTE | ~2021-09-12 | MM_ITS ---
EXAMINATION: MM DIAGNOSTIC DIGITAL BREAST TOMOSYNTHESIS, BILATERAL CLINICAL INFORMATION: Due for yearly. History right lumpectomy for breast cancer 09/23/2019, and RT 11/2019. Prior history fibrocystic changes. COMPARISON: Mammography: 09/06/2020, 09/23/2019, 09/08/2019, 09/01/2019, 01/29/2019, 09/05/2018. TECHNIQUE: Digital breast tomosynthesis is performed in both the craniocaudal and mediolateral oblique views along with computer-aided detection (CAD). Synthesized 2D images are generated from the tomosynthesis. Additional magnification right CC and magnification right ML views are provided. FINDINGS: The breasts are heterogeneously dense, which may obscure small masses (ACR BI-RADS breast composition Category c). There are no significant masses, abnormal calcifications, or other abnormalities. No developing density or interval architectural abnormality. The axilla are unremarkable. Skin contours are smooth. No significant changes. Results are provided to the patient at time of visit by the technologist. MM/MM tomosynthesis diagnostic BI IMPRESSION: No mammographic evidence of malignancy. ASSESSMENT: BI-RADS 1: Negative RECOMMENDATION: Annual bilateral mammography. This patient's information was entered into a reminder system with a target due date for their next mammogram.
== END 2021-09-12 14:55 | disposition home or self-care (01) ==
LOC: HO.MAMMO 14:54
PROVIDERS: Visit Provider Surgery
DX: D05.11 Intraductal carcinoma in situ of right breast (principal)
CPT/HCPCS: 77062; 77066

== ENCOUNTER 2021-09-21 18:46 | Emergency (ER) | payer MEDICAID, SELFPAY ==
[2021-09-21 20:09] VITALS: BP 177/81; PULSE 79; RESP 16; TEMP 37.1; O2SAT 98; BMI 22.8
--- NOTE | 2021-09-21 20:16 | ECG_ITS ---
Test Reason : CHEST DISCOMFORT Blood Pressure : / mmHG Vent. Rate : 076 BPM Atrial Rate : 076 BPM P-R Int : 146 ms QRS Dur : 072 ms QT Int : 362 ms P-R-T Axes : 000 127 -16 degrees QTc Int : 407 ms Normal sinus rhythm Low voltage QRS Septal infarct , age undetermined Lateral infarct , age undetermined Abnormal ECG When compared with ECG of 14-DEC-2020 03:47, QRS axis Shifted right Lateral infarct is now Present Nonspecific T wave abnormality, worse in Inferior leads Referred By: Generic ED Physician Electronically Signed By:KIM RODRIGUEZ MD
[2021-09-21 20:33] LABS: MANUAL DIFF FLAG NO
[2021-09-21 20:37] LABS: Appearance Urine CLEAR; Color Urine YELLOW; Glucose Urine UA NEG (NEG); Leukocyte Esterase Urine NEG (NEG); Nitrite Urine NEG (NEG); PH 5.5 (5.0-8.0); Specific Gravity - Urine >= 1.030 (1.005-1.025); UPreg QC Valid YES; Urine Blood NEG (NEG); Urine Ketones 5 MG/DL (NEG); Urine Pregnancy NEGATIVE (NEGATIVE); Urine Protein NEG (NEG-TRACE)
[2021-09-21 20:45] LABS: Basophils Absolute Auto 0.1 X10*3/uL (0.0-0.2); Basophils Percent Auto 0.5 % (0-2); Eosinophils Absolute Auto 0.1 X10*3/uL (0.0-0.4); Eosinophils Percent Auto 0.5 % (0-4); Hematocrit 41.6 % (37.0-47.0); Hemoglobin 14.4 g/dl (12.0-16.0); Imm Gran Abs Auto 0.04 X10*3/uL (0.00-0.03); Imm Gran Pct Auto 0.4 % (0.0-0.4); Lymphocytes Absolute Auto 2.6 X10*3/uL (1.2-4.9); Lymphocytes Percent Auto 28.8 % (20-40); Mean Corpuscular HGB Conc 34.6 g/dl (31.0-35.0); Mean Corpuscular Hemoglobin 31.5 pg (27.0-33.0); Mean Platelet Volume 10.2 fL (9.4-12.3); Monocytes Absolute Auto 0.8 X10*3/uL (0.1-1.2); Neutrophils Absolute Auto 5.6 x10*3/uL (2.0-8.3); Neutrophils Percent Auto 60.8 % (45-73); Platelet Count 182 X10*3/uL (160-400); Red Blood Count 4.57 X10*6/uL (4.20-5.50); Red Cell Distribution Width 12.2 % (11.0-16.0); White Blood Count 9.1 X10*3/uL (4.8-10.8)
[2021-09-21 20:47] LABS: COVID-19 Test Positive (Negative)
[2021-09-21 20:50] LABS: Anion Gap 9 (12-20); Blood Urea Nitrogen 7 mg/dL (9-16); Calcium 9.9 mg/dL (8.4-10.2); Carbon Dioxide 25 mmol/L (22-29); Chloride 108 mmol/L (96-108); Creatinine Clr Calc Pharmacy 72.5; Estimated Glomerular Filt Rate > 60; Glucose Random 105 mg/dL (60-115); Potassium 4.2 mmol/L (3.3-5.1); Sodium 138 mmol/L (135-145)
[2021-09-21 20:57] LABS: Troponin-I High Sensitivity < 3.5 ng/L (<3.5-17.0)
[2021-09-22 01:43] VITALS: BP 142/58; PULSE 71; RESP 14; O2SAT 98
--- NOTE | 2021-09-22 03:11 | ED_ITS ---
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 She did take a home test the day before yesterday but it was negative. Patient reports intermittent epistaxis but is noted to be on blood thinners. Related Data Home Medications Medication Instructions Recorded Confirmed ibuprofen 800 mg tablet 800 mg PO BID tab 03/22/20 07/31/21 levothyroxine 125 mcg tablet 125 mcg PO DAILY 07/25/20 07/31/21 aspirin 81 mg tablet,delayed 81 mg PO DAILY 01/02/21 07/31/21 release (Adult Low Dose Aspirin) atorvastatin 40 mg tablet 40 mg PO DAILY 01/02/21 07/31/21 clopidogrel 75 mg tablet 75 mg PO DAILY 01/02/21 07/31/21 mirtazapine 30 mg tablet 30 mg PO DAILY 01/02/21 07/31/21 venlafaxine 37.5 mg 37.5 mg PO DAILY 01/02/21 07/31/21 capsule,extended release 24 hr amlodipine 5 mg tablet 5 mg PO DAILY 05/31/21 08/04/21 cholecalciferol (vitamin D3) 50 50 mcg PO DAILY 05/31/21 07/31/21 mcg (2,000 unit) capsule sodium chloride 0.65 % nasal spray 2 spray INTRANASAL QID PRN 05/31/21 07/31/21 aerosol (Deep Sea Nasal) topiramate 100 mg tablet 100 mg PO BEDTIME 05/31/21 07/31/21 gabapentin 100 mg capsule 100 mg PO DAILY 07/26/21 07/31/21 Previous Rx's Medication Instructions Recorded amoxicillin 500 mg capsule 500 mg PO Q12H #14 cap 07/26/21 metoprolol succinate 50 mg 50 mg PO DAILY #60 tab 07/31/21 tablet,extended release 24 hr cephalexin 500 mg capsule 500 mg PO Q8H 10 Days #30 cap 08/04/21 Allergies Allergy/AdvReac Type Severity Reaction Status Date / Time No Known Allergies Allergy Verified 07/31/21 13:17 [No Known Allergies*] Review of Systems Review of Systems: Pertinent positives and negatives as stated in HPI 10 point review of systems is otherwise negative. [facility] Past Medical History Source: nursing notes reviewed Medical History Aneurysm Ductal carcinoma in situ (DCIS) of right breast Gout Hypertension Hypothyroidism NSTEMI (non-ST elevated myocardial infarction) Stroke Surgical History History of bilateral tubal ligation (2003) History of endometrial ablation (2010) History of lumpectomy of right breast (10/07/19) History of right breast biopsy (09/08/19) Status post cardiac catheterization Family History Family History Daughter Thyroid cancer Paternal Grandmother Breast cancer Thyroid cancer Diabetes Sister Diabetes HTN (hypertension) Sister HTN (hypertension) Sister HTN (hypertension) Sister HTN (hypertension) Sister HTN (hypertension) Father Brain tumor Mother Heart attack Social History Social History Household Members: Children Housing: Apartment Are you a primary healthcare science specialist to a significant other at home: No Do you presently have visiting nurse or other home services: No Alcohol intake: former Year quit: 2020 Patient Tobacco Use Status: Current everyday Tobacco user Years Smoked: 10 +/- Advance Directives: No service: No Current occupational status: employed Current occupation: rt handed Physical Exam Vital Signs: Vital Signs: Last Vital Signs Temp 98.8 F 09/21/21 20:09 Pulse 71 09/22/21 01:43 Resp 14 09/22/21 01:43 BP 142/58 H 09/22/21 01:43 Pulse Ox 98 09/22/21 01:43 BMI result Body Mass Index 22.8 VITAL SIGNS: Reviewed. GENERAL: Well developed, well nourished, in no acute distress. HEAD: Normocephalic/atraumatic EYES: PERRLA, EOMI EARS: Ext canals without abnormality OROPHARYNX: no oral lesions noted, posterior pharynx clear LUNGS: Normal breath sounds. No adventitious sounds or accessory muscle use. SpO2<98> CARDIOVASCULAR: Regular rate and rhythm without noted murmurs, ABDOMEN: Soft, non-tender, non-distended with bowel sounds. NEUROLOGIC: Alert and oriented x 4. Strength and sensation to light touch were grossly intact x 4. Course Course Course Narrative: 46-year-old female who presents with history and clinical presentation suggestive of viral syndrome and she stated to nursing staff that she simply wanted to get COVID-19 tested. On review of all investigations there are no acute findings other than she has demonstrated have COVID-19. Patient was given results and instructed to isolate for 5 days. Patient is otherwise discharged home in stable condition and is not tachypneic, tachycardic, nor is she febrile and continues to oxygenate well on room air. MDM - Chest Pain Lab Data Result diagrams: 09/21/21 20:27 09/21/21 20:27 Labs: Lab Results 09/21/21 09/21/21 09/21/21 Range/Units 20:24 20:25 20:25 WBC (4.8-10.8) X10*3/uL RBC (4.20-5.50) X10*6/uL Hgb (12.0-16.0) g/dl Hct (37.0-47.0) % MCV (80.0-98.0) fL MCH (27.0-33.0) pg MCHC (31.0-35.0) g/dl RDW (11.0-16.0) % Plt Count (160-400) X10*3/uL MPV (9.4-12.3) fL Immature Gran % (Auto) (0.0-0.4) % Neut % (Auto) (45-73) % Lymph % (Auto) (20-40) % [place] % (Auto) (2-11) % Eos % (Auto) (0-4) % Baso % (Auto) (0-2) % Lymph # (Auto) (1.2-4.9) X10*3/uL [place] # (Auto) (0.1-1.2) X10*3/uL Eos # (Auto) (0.0-0.4) X10*3/uL Baso # (Auto) (0.0-0.2) X10*3/uL Abs Immat Gran (auto) (0.00-0.03) X10*3/uL Absolute Neuts (auto) (2.0-8.3) x10*3/uL Absolute Nucleated RBC (0.0-0.012) X10*3/uL Nucleated RBC % (auto) (0.0-0.2) /100WBC Sodium (135-145) mmol/L Potassium (3.3-5.1) mmol/L Chloride (96-108) mmol/L Carbon Dioxide (22-29) mmol/L Anion Gap (12-20) BUN (9-16) mg/dL Creatinine (0.5-1.4) mg/dL Estim Creat Clear Calc Estimated GFR Random Glucose (60-115) mg/dL Calcium (8.4-10.2) mg/dL Troponin I High Sens (<3.5-17.0) ng/L Urine Color YELLOW Urine Appearance CLEAR Urine pH 5.5 (5.0-8.0) Ur Specific [place] >= 1.030 H (1.005-1.025) Urine Protein NEG (NEG-TRACE) MG/DL Urine Glucose (UA) NEG (NEG) MG/DL Urine Ketones 5 (NEG) MG/DL Urine Blood NEG (NEG) Urine Nitrite NEG (NEG) Ur Leukocyte Esterase NEG (NEG) Urine Test NEGATIVE (NEGATIVE) COVID-19 (SANDIE) Positive A (Negative) COVID-19 Clin Com See Note 09/21/21 09/21/21 09/21/21 Range/Units 20:27 20:27 20:27 WBC 9.1 (4.8-10.8) X10*3/uL RBC 4.57 (4.20-5.50) X10*6/uL Hgb 14.4 (12.0-16.0) g/dl Hct 41.6 (37.0-47.0) % MCV 91.0 (80.0-98.0) fL MCH 31.5 (27.0-33.0) pg MCHC 34.6 (31.0-35.0) g/dl RDW 12.2 (11.0-16.0) % Plt Count 182 (160-400) X10*3/uL MPV 10.2 (9.4-12.3) fL Immature Gran % (Auto) 0.4 (0.0-0.4) % Neut % (Auto) 60.8 (45-73) % Lymph % (Auto) 28.8 (20-40) % [place] % (Auto) 9.0 (2-11) % Eos % (Auto) 0.5 (0-4) % Baso % (Auto) 0.5 (0-2) % Lymph # (Auto) 2.6 (1.2-4.9) X10*3/uL Webster # (Auto) 0.8 (0.1-1.2) X10*3/uL Eos # (Auto) 0.1 (0.0-0.4) X10*3/uL Baso # (Auto) 0.1 (0.0-0.2) X10*3/uL Abs Immat Gran (auto) 0.04 H (0.00-0.03) X10*3/uL Absolute Neuts (auto) 5.6 (2.0-8.3) x10*3/uL Absolute Nucleated RBC 0.000 (0.0-0.012) X10*3/uL Nucleated RBC % (auto) 0.0 (0.0-0.2) /100WBC Sodium 138 (135-145) mmol/L Potassium 4.2 (3.3-5.1) mmol/L Chloride 108 (96-108) mmol/L Carbon Dioxide 25 (22-29) mmol/L Anion Gap 9 L (12-20) BUN 7 L (9-16) mg/dL Creatinine 0.75 (0.5-1.4) mg/dL Estim Creat Clear Calc 72.5 Estimated GFR > 60 Random Glucose 105 (60-115) mg/dL Calcium 9.9 (8.4-10.2) mg/dL Troponin I High Sens < 3.5 (<3.5-17.0) ng/L Urine Color Urine Appearance Urine pH (5.0-8.0) Ur Specific [place] (1.005-1.025) Urine Protein (NEG-TRACE) MG/DL Urine Glucose (UA) (NEG) MG/DL Urine Ketones (NEG) MG/DL Urine Blood (NEG) Urine Nitrite (NEG) Ur Leukocyte Esterase (NEG) Urine Test (NEGATIVE) COVID-19 (SANDIE) (Negative) COVID-19 Clin Com Discharge Plan Discharge Clinical Impression: Viral syndrome, Lab test positive for detection of COVID-19 virus Patient Disposition: Home, Self-Care Instructions: Viral Syndrome (ED), COVID-19 (Coronavirus Disease 2019) (ED) Additional Instructions: 1. Resume all home medications as prescribed. 2. You have been diagnosed with COVID-19 and must isolate for 5 days as per current CDC guidelines and then follow all state and Federal guidelines thereafter. 3. Follow-up with your primary care provider via telemedicine appointment for re-evaluation in the next 2-3 days. Return to the ER for worsening symptoms. Prescriptions: No Action levothyroxine 125 mcg Tablet 125 mcg PO DAILY 0RF gabapentin 100 mg Capsule 100 mg PO DAILY 0RF amoxicillin 500 mg Capsule 500 mg PO Q12H Qty: 14 0RF ibuprofen 800 mg tablet 800 mg PO BID 0RF aspirin [Adult Low Dose Aspirin] 81 mg tablet,delayed release (DR/EC) 81 mg PO DAILY 0RF clopidogrel 75 mg tablet 75 mg PO DAILY 0RF venlafaxine 37.5 mg capsule,extended release 24hr 37.5 mg PO DAILY 0RF atorvastatin 40 mg tablet 40 mg PO DAILY 0RF mirtazapine 30 mg tablet 30 mg PO DAILY 0RF metoprolol succinate 50 mg tablet extended release 24 hr 50 mg PO DAILY Qty: 60 3RF cephalexin 500 mg capsule 500 mg PO Q8H 10 Days Qty: 30 0RF cholecalciferol (vitamin D3) 50 mcg (2,000 unit) capsule 50 mcg PO DAILY 0RF topiramate 100 mg tablet 100 mg PO BEDTIME 0RF amlodipine 5 mg tablet 5 mg PO DAILY 0RF Deep Sea Nasal 0.65 % aerosol,spray 2 spray intranasal QID PRN (Reason: Bleeding) 0RF Referrals: Dayan Diez [Primary Care Provider] -
[2021-09-22 03:24] VITALS: BP 111/49; PULSE 70; RESP 16; O2SAT 98
== END 2021-09-22 03:33 | disposition home or self-care (01) ==
PROVIDERS: Emergency Provider Student in an Organized Health Care Education/Training Program; PCP Nurse Practitioner Family
DX: U07.1 COVID-19 (principal); B34.9 Viral infection, unspecified; I10 Essential (primary) hypertension; I25.2 Old myocardial infarction; Z86.73 Personal history of transient ischemic attack (TIA), and cerebral infarction without residual deficits; Z79.01 Long term (current) use of anticoagulants
CPT/HCPCS: 36415; 80048; 81003; 81025; 84484; 85025; 87635; 93005; 99283

== ENCOUNTER → 2021-09-29 09:35 | Outpatient (BNVA) | payer MEDICAID, SELFPAY | PROVIDERS: PCP Nurse Practitioner Family; Visit Provider Orthopaedic Surgery | DX: M54.16 Radiculopathy, lumbar region (principal); R26.9 Unspecified abnormalities of gait and mobility | CPT/HCPCS: 99202 ==

== ENCOUNTER → 2021-10-05 15:36 | Outpatient (BNVA) | payer MEDICAID, SELFPAY | PROVIDERS: PCP Nurse Practitioner Family; Referring Provider Nurse Practitioner Family; Visit Provider Surgery | DX: D05.11 Intraductal carcinoma in situ of right breast (principal); R92.2 Inconclusive mammogram | CPT/HCPCS: 99212 ==

== ENCOUNTER → 2021-10-12 13:18 | Outpatient (BNVA) | payer MEDICAID, SELFPAY | PROVIDERS: PCP Nurse Practitioner Family; Referring Provider Nurse Practitioner Family; Visit Provider Internal Medicine Cardiovascular Disease | DX: R00.2 Palpitations (principal); I77.3 Arterial fibromuscular dysplasia; I25.2 Old myocardial infarction; Z79.82 Long term (current) use of aspirin; Z79.899 Other long term (current) drug therapy | CPT/HCPCS: 99212 ==

== ENCOUNTER 2021-10-24 16:38 | Outpatient (REF) | payer MEDICAID, SELFPAY ==
--- NOTE | ~2021-10-24 | MR_ITS ---
EXAMINATION: MR BREAST WITHOUT AND WITH CONTRAST, BILATERAL CLINICAL INFORMATION: History of right breast cancer treated with lumpectomy. High-risk screening. COMPARISON: No previous breast MRI. Mammogram 09/12/2021. TECHNIQUE: Imaging was performed with a dedicated breast coil. Prior to the administration of contrast, bilateral axial T1- and bilateral axial T2 weighted sequences were obtained. After the uneventful administration of?6 mL of Gadavist, dynamic contrast-enhanced VIBRANT series through the breasts in the axial plane were performed. Subtracted images were performed and reviewed. A delayed sagittal sequence through both breasts was acquired. Additionally, CAD post-processing, including maximum intensity projections, 3-D reconstructions and kinetic analysis, were performed an independent workstation and reviewed by the interpreting radiologist is a portion of this exam. FINDINGS: Heterogeneously dense. LEFT BREAST: In the 4 o'clock position of the left breast, 5.6 cm from the nipple, there is an oval 6 mm enhancing mass which appears well circumscribed and most likely contains a nonenhancing septation (image 80, series 100). There is no T2 correlate. The imaging features are most suggestive of a benign finding such as a fibroadenoma. Recommend attention on followup MRI. There is diffuse background parenchymal enhancement in combination with scattered foci of enhancement throughout the left breast. In the 10 o'clock position of the left breast, 4 cm from the nipple, there is a short segment of linear enhancement measuring 0.8 cm anterior to posterior (image 59, series 100). This area demonstrates plateau or type II enhancement. No mammographic correlate. Recommend MRI-guided biopsy. No other suspicious masslike or non-masslike enhancement. No abnormal skin thickening or nipple retraction. No abnormal architectural distortion. Review of the T2-weighted images demonstrates extensive fibrocystic changes without dilated ducts. The largest cyst measures up to 5 cm and is located in the 3 o'clock position, mid depth. Review of kinetic images reveals no additional findings. RIGHT BREAST: Post-lumpectomy changes involving the lateral aspect of the right breast. No associated enhancement. There is overall decreased background parenchymal enhancement throughout the right breast consistent with the prior history of radiation treatment. No suspicious masslike or non-masslike enhancement. No abnormal skin thickening or nipple retraction. No abnormal architectural distortion. Review of the T2-weighted images demonstrates no fibrocystic changes or dilated ducts. Review of kinetic images reveals no additional findings. Right axillary postsurgical changes demonstrated. There is no suspicious internal mammary chain or axillary adenopathy. Limited views of the chest and abdomen are unremarkable. MR/MR breast BI wo/w con IMPRESSION: 1. Indeterminate linear enhancement, left breast, 10 o'clock. MRI-guided biopsy recommended. 2. Probably benign left breast mass, 4 o'clock. Recommend attention on followup MRI in 6-12 months. 3. Expected right breast posttreatment changes. No MRI evidence of malignancy. 4. Moderately severe left breast fibrocystic changes. ASSESSMENT: LEFT BREAST: BI-RADS 4 - Suspicious abnormality - Biopsy should be considered. RIGHT BREAST: BI-RADS 1-Negative. RECOMMENDATIONS: MRI-guided biopsy, left breast, 10 o'clock. Recommendation given to Sarah Beth JIANG on 10/26/21 @ 1:13pm.
== END 2021-10-24 16:39 | disposition home or self-care (01) ==
LOC: HO.MRI 16:38
PROVIDERS: Visit Provider Surgery
DX: D05.11 Intraductal carcinoma in situ of right breast (principal); R92.2 Inconclusive mammogram
CPT/HCPCS: 77049; A9585

== ENCOUNTER 2021-11-15 07:36 | Outpatient (REF) | payer MEDICAID, SELFPAY ==
--- NOTE | ~2021-11-15 | MR_ITS ---
EXAMINATION: MR GUIDED VACUUM-ASSISTED CORE BIOPSY BREAST, LEFT MM DIGITAL MAMMOGRAPHY POST BIOPSY, LEFT CLINICAL INFORMATION: Indeterminate short linear enhancement left breast 10:00 position, recommended for tissue sampling. Probable benign left breast mass 4:00 position for follow-up MR 6-12 months. Personal history contralateral right lumpectomy for breast cancer 09/23/2019. History fibrocystic changes. COMPARISON: MRI breasts 10/24/2021, digital breast tomosynthesis 09/12/2021. TECHNIQUE/PROCEDURE: Informed consent was obtained from the patient after discussion of the benefits, risks, and alternatives to biopsy today. Patient appeared to understand. Gave opportunity for questions. Patient signed consent form. Biopsy is performed under MRI guidance using breast surface coil. Imaging is performed without and with use of 6 mL Gadavist gadolinium contrast. [employer] [place] introducer localization system is used with grid. LESION: Short linear enhancement central 10:00. LOCAL ANESTHESIA: 6 mL carbonated 1% lidocaine; 10 mL 1% lidocaine with epinephrine. NEEDLE: [employer] 9-gauge vacuum assisted core biopsy device. APPROACH: ML. CORES: 8. CLIP: [employer]Mark cylinder shaped. POSTPROCEDURE UNILATERAL DIGITAL MAMMOGRAM: Mammography is performed using digital mammography in CC and LM views. The breasts are heterogeneously dense, which may obscure small masses (ACR BI-RADS breast composition Category c). The clip marker is in position. No gross hematoma. The patient tolerated the procedure well. No immediate complications. Home instructions reviewed with the patient. Final pathology results are pending. MR/MR guided breast biopsy LT IMPRESSION: 1. Status post MRI guided vacuum-assisted core biopsy left breast with clip placement. 2. Final pathology results pending. An addendum report will be issued.
[2021-11-15] MEDS: Lidocaine HCl 1 % MPF 5 ML VIAL SUBCUT (09:40)
[2021-11-15] MEDS: Sodium Bicarbonate 8.4% 50 MEQ/50 ML VIAL SUBCUT (09:49)
== END 2021-11-15 07:37 | disposition home or self-care (01) ==
LOC: HO.MRI 07:36
PROVIDERS: Visit Provider Surgery
DX: R92.8 Other abnormal and inconclusive findings on diagnostic imaging of breast (principal)
CPT/HCPCS: 19085; 77062; 77065; 88305; A4648; A9585

== ENCOUNTER → 2021-11-17 11:47 | Outpatient (BNVA) | payer MEDICAID, SELFPAY | PROVIDERS: PCP Nurse Practitioner Family; Referring Provider Nurse Practitioner Family; Visit Provider Surgery | DX: N64.89 Other specified disorders of breast (principal); Z86.000 Personal history of in-situ neoplasm of breast | CPT/HCPCS: 99212 ==

== ENCOUNTER 2021-12-22 13:09 | Emergency (ER) | payer MEDICAID, SELFPAY ==
--- NOTE | ~2021-12-22 | CT_ITS ---
EXAMINATION: CT ANGIOGRAM HEAD CT ANGIOGRAM NECK CLINICAL INFORMATION: Reason for Exam hx of aneurysm, headache COMPARISON: CTA head and neck 02/10/2021 TECHNIQUE: Initial noncontrast warehouse analyst imaging of the head and neck was performed. Noncontrast head CT was also performed. Test bolus sequences followed by intravenous administration 70 mL of Omnipaque 350. Helical imaging was performed in the axial plane from the aortic arch to the skull vertex. Delayed postcontrast imaging of the head was also performed. The data was processed at the blood bank technologist's workstation for generation of MIP sequences. Angled MIPs and volume rendered reformatted images were also generated at an offline 3D workstation. Stenoses are assessed in accordance with NASCET criteria unless otherwise indicated. DLP: 2192 mGy-cm. This CT examination was performed using dose optimization techniques as appropriate, variously including the following: *Automated exposure control. *Adjustment of mA and/or kV according to patient size (this includes techniques or standardized protocols for targeted exams where dose is matched to indication/reason for exam; i.e. extremities or head). *Use of iterative reconstruction technique. FINDINGS: CT Head: There is no evidence of acute intracranial hemorrhage or edematous territorial infarction. There is no abnormal attenuation within the brain parenchyma. Pettit-white matter differentiation is preserved. The ventricles are normal in size and configuration. No evidence for obstructive hydrocephalus. No abnormal mass effect or midline shift. No extra-axial fluid collections. No pathologic intra-axial enhancement or regional oligemia. No acute soft tissue or osseous abnormalities. CT Neck: The thyroid gland and remaining cervical soft tissues are within normal limits. Stable metallic hyperdensity in the region of the left parotid gland No significant abnormalities of the cervical spine. CT Upper Chest: Mild postradiation fibrosis along the anterior right lung. Mild biapical scarring. The visualized upper mediastinum is within normal limits Neck CTA: Aortic Arch: Normal contour and caliber. Classic 3 vessel branching pattern of the aortic arch. Great Vessel Origins: No significant stenosis of the branch origins. Right Common Carotid Artery: No focal stenosis or occlusion. Cervical Right Internal Carotid Artery: No focal stenosis or occlusion. There is stable mild irregularity and beading of the distal cervical right ICA Left Common Carotid Artery: No focal stenosis or occlusion. Cervical Left Internal Carotid Artery: Normal opacification without focal stenosis or occlusion. Cervical Right Vertebral Artery: No focal stenosis or occlusion. Cervical Left Vertebral Artery: Dominant. No focal stenosis or occlusion. Brain CTA: CT of the head is somewhat technically limited due to extensive venous contamination. Intracranial Internal Carotid Arteries: No focal stenosis or occlusion. A stent is noted in the supraclinoid left internal carotid artery. 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 Right Anterior Cerebral Artery: Normal A1 segment. Normal opacification of the distal SCOTT segments. Left Anterior Cerebral Artery: Normal A1 segment. Normal opacification of the distal SCOTT segments. Anterior Communicating Artery: Normal. Right Middle Cerebral Artery: Normal M1 segment of the MCA without focal stenosis or occlusion. Normal arborization of the distal segments. Left Middle Cerebral Artery: Normal M1 segment of the MCA without focal stenosis or occlusion. Normal arborization of the distal segments. Right Vertebral Artery: Normal V4 segment. Left Vertebral Artery: Normal V4 segment. Basilar Artery: Normal without focal stenosis or occlusion. Normal appearance of the proximal superior cerebellar arteries. Right Posterior Cerebral Artery: Normal P1 segment. Normal opacification of the distal CAR HEAD LINER INSTALLER segments. Left Posterior Cerebral Artery: Normal P1 segment. Normal opacification of the distal CAR HEAD LINER INSTALLER segments. Normal opacification of the superior sagittal, straight, transverse, and sigmoid sinuses. CT/CT angio head neck IMPRESSION: 1. No acute intracranial abnormality including hemorrhage, mass effect, hydrocephalus, or acute territorial edematous infarction. 2. Normal CTA of the head and neck. Stent is noted in the supraclinoid left ICA with absent opacification of previously described left posterior communicating artery origin aneurysm versus infundibulum. No new intracranial aneurysms are identified. 3. Stable mild irregularity of the distal right internal carotid artery without significant stenosis which may reflect sequela of fibromuscular dysplasia
[2021-12-22 13:20] VITALS: BMI 23.8; BMI 29.2
--- NOTE | 2021-12-22 13:21 | ECG_ITS ---
Test Reason : chest pain Blood Pressure : / mmHG Vent. Rate : 070 BPM Atrial Rate : 070 BPM P-R Int : 142 ms QRS Dur : 070 ms QT Int : 372 ms P-R-T Axes : -05 030 006 degrees QTc Int : 401 ms Normal sinus rhythm Septal infarct (cited on or before 21-SEP-2021) Abnormal ECG When compared with ECG of 21-SEP-2021 20:32, QRS axis Shifted left Referred By: Generic ED Physician Electronically Signed By:MICHELLE PRUETT
[2021-12-22 13:29] VITALS: BP 178/68; PULSE 71; RESP 16; TEMP 36.4; O2SAT 99; BMI 22.8
[2021-12-22 13:45] LABS: Hemoglobin 14.2 g/dl (12.0-16.0); Mean Corpuscular HGB Conc 33.8 g/dl (31.0-35.0); Mean Corpuscular Volume 91.7 fL (80.0-98.0); Mean Platelet Volume 10.2 fL (9.4-12.3); Platelet Count 176 X10*3/uL (160-400); Red Blood Count 4.58 X10*6/uL (4.20-5.50); Red Cell Distribution Width 11.9 % (11.0-16.0); White Blood Count 8.1 X10*3/uL (4.8-10.8)
[2021-12-22 13:56] LABS: D Dimer High Sensitivity < 150 NG/ML
[2021-12-22 14:02] LABS: Alanine Aminotransferase 7 U/L (0-31); Albumin Level 4.3 g/dL (3.5-5.0); Alkaline Phosphatase 70 U/L (39-117); Anion Gap 12 (12-20); Aspartate Amino Transferase 13 U/L (5-31); Bilirubin Total 0.4 mg/dL (0.0-1.0); Blood Urea Nitrogen 8 mg/dL (9-16); Calcium 9.5 mg/dL (8.4-10.2); Carbon Dioxide 27 mmol/L (22-29); Chloride 106 mmol/L (96-108); Creatinine Clr Calc Pharmacy 75.6; Estimated Glomerular Filt Rate > 60; Glucose Random 105 mg/dL (60-115); Magnesium 2.1 mg/dL (1.6-2.6); Potassium 3.9 mmol/L (3.3-5.1); Sodium 141 mmol/L (135-145); Total Protein 7.1 g/dL (6.5-8.0)
[2021-12-22 14:08] LABS: Troponin-I High Sensitivity < 3.5 ng/L (<3.5-17.0)
[2021-12-22 16:50] VITALS: BP 151/60
--- NOTE | 2021-12-22 17:52 | ED_ITS ---
HPI - Chest Pain General Chief Complaint: Chest Pain Stated Complaint: chest pain headache high bp Time Seen by Provider: 12/22/21 17:52 Source: patient Mode of arrival: ambulatory Limitations: no limitations History of Present Illness HPI narrative: Patient is a 46-year-old female with a past medical history of gout, HTN, hypothyroidism, breast cancer, NSTEMI, brain aneurysm with surgery 05/17/21, stroke with persistent left-sided deficits, presents to the emergency department with left-sided chest pain, dizziness, and lightheadedness starting at work today. Patient states she was initially concerned due secondary to a blood pressure increase starting 5 days ago. She visited her PCP yesterday, who agreed with her blood pressure concern and increased her metorolol dose. 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 She reports today at work she experienced chest pain, dizziness, lightheadedness, flashing lights, and intermittent palpitations. Now, she states her symptoms have slightly worsened with addit ional occipital pain, and shoulder numbness/tingling. She denies fever, chills, shortness of breath, cough, wheezing, back pain, night sweats, vomiting, or abdominal pain. MD complaint: chest discomfort Onset (ago): day(s) Prior episodes: Yes Pain location: left chest Pain radiation: none Severity: mild Pain scale (0-10): 2 Quality: dull Relieving factors: nothing Exacerbating factors: nothing Treatment prior to arrival: none Related Data Home Medications Medication Instructions Recorded Confirmed ibuprofen 800 mg tablet 800 mg PO BID 03/22/20 10/12/21 levothyroxine 125 mcg tablet 125 mcg PO DAILY 07/25/20 10/12/21 aspirin 81 mg tablet,delayed 81 mg PO DAILY 01/02/21 10/12/21 release (Adult Low Dose Aspirin) atorvastatin 40 mg tablet 40 mg PO DAILY 01/02/21 10/12/21 mirtazapine 30 mg tablet 30 mg PO DAILY 01/02/21 10/12/21 venlafaxine 37.5 mg 75 mg PO DAILY 01/02/21 10/12/21 capsule,extended release 24 hr amlodipine 5 mg tablet 5 mg PO DAILY 05/31/21 11/21/21 cholecalciferol (vitamin D3) 50 50 mcg PO DAILY 05/31/21 10/12/21 mcg (2,000 unit) capsule sodium chloride 0.65 % nasal spray 2 spray intranasal QID PRN Bleeding 05/31/21 10/12/21 aerosol (Deep Sea Nasal) topiramate 100 mg tablet 100 mg PO BEDTIME 05/31/21 10/12/21 gabapentin 100 mg capsule 100 mg PO DAILY 07/26/21 10/12/21 Previous Rx's Medication Instructions Recorded metoprolol succinate 50 mg 50 mg PO DAILY #60 tabs 07/31/21 tablet,extended release 24 hr Allergies Allergy/AdvReac Type Severity Reaction Status Date / Time Gadolinium-Containing Allergy Mild Rash Verified 11/21/21 16:10 Contrast Medi Review of Systems Review of Systems: Yes all other systems are reviewed and are negative Constitutional: Constitutional: Reports as per HPI, Denies chills and Denies fever(s) Eyes: Eyes: Denies blind spots, Denies blurry vision, Denies diplopia, Denies eye discharge, Denies eye pain and Reports seeing flashes ENT: Denies facial pain, Denies nasal congestion, Denies neck mass and Denies sore throat Cardiovascular: Cardiovascular: Reports as per HPI, Reports chest pain (left sided), Reports lightheadedness and Reports dyspnea (intermittently) Comments: palpitations Respiratory: Respiratory: Reports dyspnea (intermittently) Gastrointestinal: Gastrointestinal: Reports no additional gastrointestinal complaints, Denies abdominal pain, Denies melena, Denies change in bowel habits, Denies change in stool character, Denies diarrhea and Denies nausea Genitourinary: Genitourinary: Reports no additional female genitourinary complaints, Denies pelvic pain, Denies urinary incontinence, Denies urinary hesitancy and Denies urinary urgency Musculoskeletal: Musculoskeletal: Reports muscle weakness Comments: Shoulder numbness/tingling Neurologic: Reports as per HPI Comments: Headache, dizziness, lightheadedness, lights flashing Psychiatric: Psychiatric: Reports no additional psychiatric complaints Endocrine: Endocrine: Reports no additional endocrine complaints Hematologic/Lymphatic: Hematologic/Lymphatic: Reports no additional hematologi c/lymphatic complaints Allergic/Immunologic: Allergic/Immunologic: Reports no additional allergic/immunologic complaints PMFSH Past Medical History Attestation statement: The following information was validated with the patient. Source: old records reviewed Medical History Aneurysm Ductal carcinoma in situ (DCIS) of right breast Gout Hypertension Hypothyroidism NSTEMI (non-ST elevated myocardial infarction) Stroke Surgical History History of bilateral tubal ligation (2003) History of endometrial ablation (2010) History of lumpectomy of right breast (10/07/19) History of right breast biopsy (09/08/19) Status post cardiac catheterization Family History Family History Daughter Thyroid cancer Paternal Grandmother Breast cancer Thyroid cancer Diabetes Sister Diabetes HTN (hypertension) Sister HTN (hypertension) Sister HTN (hypertension) Sister HTN (hypertension) Sister HTN (hypertension) Father Brain tumor Mother Heart attack Social History Social History Household Members: Children Housing: Apartment Are you a primary transitions rn care coordinator to a significant other at home: No Do you presently have visiting nurse or other home services: No Alcohol intake: former Year quit: 2020 Patient Tobacco Use Status: Former Tobacco user Quit Date: December 2020 Years Smoked: 10 +/- Advance Directives: No Advance Directives Information Provided: No service: No Current occupational status: employed Current occupation: rt handed Physical Exam Vital Signs: Vital Signs: Last Vital Signs Temp 97.6 F 12/22/21 13:29 Pulse 71 12/22/21 13:29 Resp 16 12/22/21 13:29 BP 151/60 H 12/22/21 16:50 Pulse Ox 99 12/22/21 13:29 O2 Del Method 12/22/21 13:29 BMI result Body Mass Index 22.8 Const: General: cooperative, no acute distress, alert and awake Nutritional Appearance: well nourished Orientation/consciousness: patient oriented x3 Limitations: no limitations HEENT: Head: Yes normal to inspection and Yes atraumatic Ears: hearing grossly normal bilaterally and external ears normal General nose exam: Normal external nose present, no nasal discharge noted and no epistaxis Face and sinus: Yes normal facial exam, No abrasion and No laceration Mouth: Normal oral and palatal mucosa present, no drooling and no muffled voice Eyes: General: appearance normal, both eyes and all related structures Periorbital: periorbital findings normal Eyelids: Yes eyelids normal Conjunctivae: conjunctivae normal Pupils: Equal, round and reactive pupils p resent EOM: EOMs intact bilaterally Neck: Neck: Yes normal visual inspection, Yes full ROM and Yes no lymphadenopathy Chest: Chest palpation & inspection: normal inspection of the chest Resp: Effort & Inspection: normal respiratory effort and able to speak in complete sentences Auscultation: clear to auscultation bilaterally, no crackles, no rales, no rhonchi and no wheezes Cardio: Rate: regular rate Rhythm: regular rhythm GI: Inspection: Yes normal to inspection : General: Yes no CVA tenderness Back/Spine/Pelvis: Back: no CVA tenderness Cervical Spine: normal cervical lordosis and cervical ROM normal Thoracic/Lumbar Spine: thoracic and lumbar spine normal to inspection Pelvis: no pain with anterior-posterior compression Neuro: Other: Left-sided UE/LE at 4/5 strength General: patient oriented x3 and moves all extremities Cranial nerves: Yes Equal, round and reactive pupils present Cognition (Neuro): normal cognition Motor exam (neuro): 5/5 motor strength present throughout Coordination: [id number] test normal Pupils: Normal pupillary reactivity/response: bilateral Extrem: General: Yes normal to inspection and Yes capillary refill normal Psych: Appearance: grossly normal Mental Status: mental status grossly normal Affect: normal affect Attitude: cooperative Thought process: Normal thought process present Thought content: Normal thought content presen t Insight: Good insight present (Psych) NIH Stroke Scale Internal: Initial- Upon Arrival Time: 17:52 Level of Consciousness: Alert Level of Consciousness Questions: Answers both questions correctly Level of Consciousness Commands: Performs both tasks correctly Best Gaze: Normal Visual: No visual loss Facial Palsy: Normal Motor Arm (Right): No drift Motor Arm (Left): No drift Motor Leg (Right): No drift Motor Leg (Left): No drift Limb Ataxia: Absent Sensory: Normal Best Language: No aphasia Dysarthia: Normal Extinction and Inattention: No abnormality Score: 0 MDM - Chest Pain MDM Narrative Medical decision making narrative: Patient is a 46 year old female presenting to the emergency department today with palpitations and concerns about her blood pressure. Patient's physical exam was unremarkable. Patient's NIH stroke scale was 0. Patient stated she has left sided deficit however, I did not appreciate that on my examination. Patient's blood work was unremarkable, including a normal troponin. Patient's EKG was unremarkable. Patient's head and neck CTA showed no acute process and was unchanged from previous. Upon reevaluation, patient stated that her symptoms completely resolved. I explained my physical exam findings as well as all test results to the patient. I answered all questions asked by the patient. I stressed the importance of the patient taking her medication as prescribed. I stressed the importance of the patient following up with her primary care provider. I stressed the importance of the patient returning to the emergency department immediately if her symptoms were to worsen or if she were to develop any dizziness, shortness of breath, difficulty breathing, chest pain, blurry vision, loss of vision, nausea, vomiting, abdominal pain, fever, chills, back pain, or any other complaints. Patient verbalized agreement and understanding with this treatment plan and discharge. Differential Diagnosis Differential diagnosis: Likely atypical chest pain Medical Records Data Attestation: I reviewed the patient's medical records. Lab Data Attestation: I reviewed the patient's lab results. Result diagrams: 12/22/21 13:37 12/22/21 13:37 Labs: Lab Results 12/22/21 12/22/21 12/22/21 Range/Units 13:37 13:37 13:37 WBC 8.1 (4.8-10.8) X10*3/uL RBC 4.58 (4.20-5.50) X10*6/uL Hgb 14.2 (12.0-16.0) g/dl Hct 42.0 (37.0-47.0) % MCV 91.7 (80.0-98.0) fL MCH 31.0 (27.0-33.0) pg MCHC 33.8 (31.0-35.0) g/dl RDW 11.9 (11.0-16.0) % Plt Count 176 (160-400) X10*3/uL MPV 10.2 (9.4-12.3) fL Absolute Nucleated RBC 0.000 (0.0-0.012) X10*3/uL Nucleated RBC % (auto) 0.0 (0.0-0.2) /100WBC PT (10.0-13.1) SEC INR (0.9-1.1) APTT (26.0-36.4) SEC D-Dimer High Sensitivty < 150 NG/ML Sodium 141 (135-145) mmol/L Potassium 3.9 (3.3-5.1) mmol/L Chloride 106 (96-108) mmol/L Carbon Dioxide 27 (22-29) mmol/L Anion Gap 12 (12-20) BUN 8 L (9-16) mg/dL Creatinine 0.72 (0.5-1.4) mg/dL Estim Creat Clear Calc 75.6 Estimated GFR > 60 Random Glucose 105 (60-115) mg/dL Calcium 9.5 (8.4-10.2) mg/dL Magnesium 2.1 (1.6-2.6) mg/dL Total Bilirubin 0.4 (0.0-1.0) mg/dL AST 13 D (5-31) U/L ALT 7 (0-31) U/L Alkaline Phosphatase 70 (39-117) U/L Troponin I High Sens (<3.5-17.0) ng/L B-Natriuretic Peptide (<100) pg/mL Total Protein 7.1 (6.5-8.0) g/dL Albumin 4.3 (3.5-5.0) g/dL 12/22/21 12/22/21 12/22/21 Range/Units 13:37 19:15 19:15 WBC (4.8-10.8) X10*3/uL RBC (4.20-5.50) X10*6/uL Hgb (12.0-16.0) g/dl Hct (37.0-47.0) % MCV (80.0-98.0) fL MCH (27.0-33.0) pg MCHC (31.0-35.0) g/dl RDW (11.0-16.0) % Plt Count (160-400) X10*3/uL MPV (9.4-12.3) fL Absolute Nucleated RBC (0.0-0.012) X10*3/uL Nucleated RBC % (auto) (0.0-0.2) /100WBC PT 11.5 (10.0-13.1) SEC INR 1.0 (0.9-1.1) APTT 32.7 (26.0-36.4) SEC D-Dimer High Sensitivty NG/ML Sodium (135-145) mmol/L Potassium (3.3-5.1) mmol/L Chloride (96-108) mmol/L Carbon Dioxide (22-29) mmol/L Anion Gap (12-20) BUN (9-16) mg/dL Creatinine (0.5-1.4) mg/dL Estim Creat Clear Calc Estimated GFR Random Glucose (60-115) mg/dL Calcium (8.4-10.2) mg/dL Magnesium (1.6-2.6) mg/dL Total Bilirubin (0.0-1.0) mg/dL AST (5-31) U/L ALT (0-31) U/L Alkaline Phosphatase (39-117) U/L Troponin I High Sens < 3.5 (<3.5-17.0) ng/L B-Natriuretic Peptide 18 (<100) pg/mL Total Protein (6.5-8.0) g/dL Albumin (3.5-5.0) g/dL Imaging Data CTA Head / Neck: Attestation: I personally reviewed and interpreted this imaging study as follows: My impression: No acute process. Radiologist's impression: EXAMINATION: CT ANGIOGRAM HEAD CT ANGIOGRAM NECK CLINICAL INFORMATION: Reason for Exam hx of aneurysm, headache COMPARISON: CTA head and neck 02/10/2021 TECHNIQUE: Initial noncontrast artist's model imaging of the head and neck was performed. Noncontrast head CT was also performed. Test bolus sequences followed by intravenous administration 70 mL of Omnipaque 350. Helical imaging was performed in the axial plane from the aortic arch to the skull vertex. Delayed postcontrast imaging of the head was also performed. The data was processed at the seating and mobility technologist's workstation for generation of MIP sequences. Angled MIPs and volume rendered reformatted images were also generated at an offline 3D workstation. Stenoses are assessed in accordance with NASCET criteria unless otherwise indicated. DLP: 2192 mGy-cm. This CT examination was performed using dose optimization techniques as appropriate, variously including the following: *Automated exposure control. *Adjustment of mA and/or kV according to patient size (this includes techniques or standardized protocols for targeted exams where dose is matched to indication/reason for exam; i.e. extremities or head). *Use of iterative reconstruction technique. FINDINGS: CT Head: There is no evidence of acute intracranial hemorrhage or edematous territorial infarction. There is no abnormal attenuation within the brain parenchyma. Pettit-white matter differentiation is preserved. The ventricles are normal in size and configuration. No evidence for obstructive hydrocephalus. No abnormal mass effect or midline shift. No extra-axial fluid collections. No pathologic intra-axial enhancement or regional oligemia. No acute soft tissue or osseous abnormalities. CT Neck: The thyroid gland and remaining cervical soft tissues are within normal limits. Stable metallic hyperdensity in the region of the left parotid gland No significant abnormalities of the cervical spine. CT Upper Chest: Mild postradiation fibrosis along the anterior right lung. Mild biapical scarring. The visualized upper mediastinum is within normal limits Neck CTA: Aortic Arch: Normal contour and caliber. Classic 3 vessel branching pattern of the aortic arch. Great Vessel Origins: No significant stenosis of the branch origins. Right Common Carotid Artery: No focal stenosis or occlusion. Cervical Right Internal Carotid Artery: No focal stenosis or occlusion. There is stable mild irregularity and beading of the distal cervical right ICA Left Common Carotid Artery: No focal stenosis or occlusion. Cervical Left Internal Carotid Artery: Normal opacification without focal stenosis or occlusion. Cervical Right Vertebral Artery: No focal stenosis or occlusion. Cervical Left Vertebral Artery: Dominant. No focal stenosis or occlusion. Brain CTA: CT of the head is somewhat technically limited due to extensive venous contamination. Intracranial Internal Carotid Arteries: No focal stenosis or occlusion. A stent is noted in the supraclinoid left internal carotid artery. 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 Right Anterior Cerebral Artery: Normal A1 segment. Normal opacification of the distal SCOTT segments. Left Anterior Cerebral Artery: Normal A1 segment. Normal opacification of the distal SCOTT segments. Anterior Communicating Artery: Normal. Right Middle Cerebral Artery: Normal M1 segment of the MCA without focal stenosis or occlusion. Normal arborization of the distal segments. Left Middle Cerebral Artery: Normal M1 segment of the MCA without focal stenosis or occlusion. Normal arborization of the distal segments. Right Vertebral Artery: Normal V4 segment. Left Vertebral Artery: Normal V4 segment. Basilar Artery: Normal without focal stenosis or occlusion. Normal appearance of the proximal superior cerebellar arteries. Right Posterior Cerebral Artery: Normal P1 segment. Normal opacification of the distal ENTERTAINMENT MANAGER segments. Left Posterior Cerebral Artery: Normal P1 segment. Normal opacification of the distal ENTERTAINMENT MANAGER segments. Normal opacification of the superior sagittal, straight, transverse, and sigmoid sinuses. CT/CT angio head neck IMPRESSION: ? 1.? No acute intracranial abnormality including hemorrhage, mass effect, hydrocephalus, or acute territorial edematous infarction. ? 2.? Normal CTA of the head and neck. Stent is noted in the supraclinoid left ICA with absent opacification of previously described left posterior communicating artery origin aneurysm versus infundibulum. No new intracranial aneurysms are identified. ? 3.? Stable mild irregularity of the distal right internal carotid artery without significant stenosis which may reflect sequela of fibromuscular dysplasia Dictated By: Ludin Riley Signed By: Electronically signed by Ludin?Osvaldo 12/22/212055 ECG Data ECG #1: Attestation: I personally reviewed and interpreted this ECG as follows: ECG interpretation date: 12/22/21 ECG interpretation time: 13:18 Prior ECG tracings: available for review Interpretation: Vent. Rate: 070 BPM ? ? Atrial Rate: 070 BPM P-R Int: 142 ms? QRS Dur: 070 ms QT Int: 372 ms ? ? ? P-R-T Axes: -05 030 006 degrees QTc Int: 401 ms ? Normal sinus rhythm Septal infarct (cited on or before 21-SEP-2021) Abnormal ECG When compared with ECG of 21-SEP-2021 20:32, QRS axis Shifted left ? Referred By: Generic ED Physician ? Electronically Signed By:HEATH PRUETT Dictated By: Heath Pruett MD Signed By: Electronically signed by Heath Pruett MD 12/22/21 1444 Discharge Plan Discharge Clinical Impression: History of hypertension Patient Disposition: Home, Self-Care Instructions: Hypertension (ED) Additional Instructions: Follow up with your primary care provider. Return to the emergency department immediately if your symptoms worsen or if you develop any dizziness, shortness of breath, difficulty breathing, chest pain, blurry vision, loss of vision, nausea, vomiting, abdominal pain, fever, chills, back pain, or any other complaints. Prescriptions: No Action levothyroxine 125 mcg Tablet 125 mcg PO DAILY gabapentin 100 mg Capsule 100 mg PO DAILY ibuprofen 800 mg tablet 800 mg PO BID aspirin [Adult Low Dose Aspirin] 81 mg tablet,delayed release (DR/EC) 81 mg PO DAILY venlafaxine 37.5 mg capsule,extended release 24hr 75 mg PO DAILY atorvastatin 40 mg tablet 40 mg PO DAILY mirtazapine 30 mg tablet 30 mg PO DAILY metoprolol succinate 50 mg tablet extended release 24 hr 50 mg PO DAILY Qty: 60 3RF cholecalciferol (vitamin D3) 50 mcg (2,000 unit) capsule 50 mcg PO DAILY topiramate 100 mg tablet 100 mg PO BEDTIME amlodipine 5 mg tablet 5 mg PO DAILY Deep Sea Nasal 0.65 % aerosol,spray 2 spray intranasal QID PRN (Reason: Bleeding) Referrals: Dayan Diez [Primary Care Provider] - Interventions: ED Discharge Assessment Last Done: 12/22/21 21:19 Discharge Date/Time: 12/22/21 21:21 Print Language: Armenian
[2021-12-22 19:36] LABS: Prothrombin Time 11.5 SEC (10.0-13.1)
[2021-12-22 19:39] LABS: Partial Thromboplastin Time 32.7 SEC (26.0-36.4)
[2021-12-22 19:41] LABS: B Type Natriuretic Peptide 18 pg/mL (<100)
[2021-12-22] MEDS: iohexoL 350 MG/ML 100 ML INFUS..BTL IV (20:17)
== END 2021-12-22 21:21 | disposition home or self-care (01) ==
PROVIDERS: Physician Assistant Medical; Emergency Provider Emergency Medicine Emergency Medical Services; PCP Nurse Practitioner Family
DX: I10 Essential (primary) hypertension (principal); R07.9 Chest pain, unspecified; Z87.891 Personal history of nicotine dependence; Z86.73 Personal history of transient ischemic attack (TIA), and cerebral infarction without residual deficits; Z79.82 Long term (current) use of aspirin; Z79.02 Long term (current) use of antithrombotics/antiplatelets; Z79.899 Other long term (current) drug therapy
CPT/HCPCS: 36415; 70496; 70498; 80053; 83735; 83880; 84484; 85027; 85379; 85610; 85730; 93005; 99283; 99284; Q9967

== ENCOUNTER → 2022-01-24 10:00 | Outpatient (BNVA) | payer MEDICAID, SELFPAY | PROVIDERS: PCP Nurse Practitioner Family; Visit Provider Internal Medicine Cardiovascular Disease | DX: R00.2 Palpitations (principal); I77.3 Arterial fibromuscular dysplasia; I25.2 Old myocardial infarction; Z79.82 Long term (current) use of aspirin; Z79.899 Other long term (current) drug therapy | CPT/HCPCS: 99212 ==

== ENCOUNTER → 2022-02-13 08:30 | Outpatient (BNVA) | payer MEDICAID, SELFPAY | PROVIDERS: PCP Nurse Practitioner Family; Referring Provider Nurse Practitioner Family; Visit Provider Surgery | DX: N63.21 Unspecified lump in the left breast, upper outer quadrant (principal); D05.11 Intraductal carcinoma in situ of right breast; N64.4 Mastodynia | CPT/HCPCS: 99212 ==

== ENCOUNTER 2022-02-23 13:16 | Outpatient (REF) | payer MEDICAID, SELFPAY ==
--- NOTE | ~2022-02-23 | US_ITS ---
EXAMINATION: US DIAGNOSTIC ULTRASOUND BREAST, LEFT CLINICAL INFORMATION: Question increase lump upper aspect left breast. Previous right breast lumpectomy. COMPARISON: Mammography of 11/15/2021 and MRI of 10/24/2021 as well as studies dating back to 03/07/2018. TECHNIQUE: Ultrasound of the breast is performed with real-time lovell scale imaging and color Doppler. FINDINGS: There are numerous left breast cysts present one at the 3 o'clock position measures greater than 5 cm in maximum dimension. At 9 o'clock there is a 2.7 x 1.3 x 2.1 cm simple cyst. Numerous other simple cysts are seen. There is no solid mass, architectural abnormality, duct ectasia, or edema in the soft tissue planes. Results are discussed with the patient at time of visit. US/US breast LT limited IMPRESSION: Numerous left breast cysts with no suspicious solid abnormality appreciated. ASSESSMENT: BI-RADS 2: Benign RECOMMENDATION: Routine annual mammography screening. This patient's information was entered into a reminder system with a target due date for their next mammogram.
--- NOTE | ~2022-02-23 | US_ITS ---
EXAMINATION: US DIAGNOSTIC ULTRASOUND BREAST, RIGHT CLINICAL INFORMATION: Right lower lateral and axillary pain. COMPARISON: Mammography of 09/12/2021 and studies dating back to 08/12/2017. TECHNIQUE: Ultrasound of the breast is performed with real-time lovell scale imaging and color Doppler. FINDINGS: At the 9 o'clock position, 6 cm from the nipple, there is again noted to be an anechoic structure with increase of sound transmission, measuring 4 x 3 x 3 mm in size, representing a cyst. Previously on study of 10/05/2020 it measured approximately 5 mm in diameter. No internal vascularity identified. No suspicious distal sound shadowing. There is no solid mass, architectural abnormality, duct ectasia, or edema in the soft tissue planes. Results are discussed with the patient at time of visit. US/US breast RT limited IMPRESSION: No suspicious right breast findings in the region of patient's pain. ASSESSMENT: BI-RADS 2: Benign. RECOMMENDATION: Routine annual mammography screening. This patient's information was entered into a reminder system with a target due date for their next mammogram.
== END 2022-02-23 13:17 | disposition home or self-care (01) ==
LOC: HO.MAMMO 13:16
PROVIDERS: Visit Provider Surgery
DX: N64.4 Mastodynia (principal); D05.11 Intraductal carcinoma in situ of right breast; N63.25 Unspecified lump in the left breast, overlapping quadrants
CPT/HCPCS: 76642

== ENCOUNTER → 2022-04-13 10:54 | Outpatient (BNVA) | payer MEDICAID, SELFPAY | PROVIDERS: PCP General Practice; Visit Provider Surgery | DX: D05.11 Intraductal carcinoma in situ of right breast (principal); N63.21 Unspecified lump in the left breast, upper outer quadrant; N64.4 Mastodynia | CPT/HCPCS: 99212 ==

== ENCOUNTER → 2022-04-25 14:51 | Outpatient (BNVA) | payer MEDICAID, SELFPAY | PROVIDERS: PCP Nurse Practitioner Family; Referring Provider Nurse Practitioner Family; Visit Provider Internal Medicine Cardiovascular Disease | DX: R00.2 Palpitations (principal); I77.3 Arterial fibromuscular dysplasia; I25.42 Coronary artery dissection; Z79.899 Other long term (current) drug therapy | CPT/HCPCS: 99212 ==

== ENCOUNTER → 2022-06-19 15:19 | Outpatient (BNVA) | payer MEDICAID, SELFPAY | PROVIDERS: PCP Nurse Practitioner Family; Visit Provider Surgery | DX: N63.21 Unspecified lump in the left breast, upper outer quadrant (principal); N64.4 Mastodynia; Z86.000 Personal history of in-situ neoplasm of breast | CPT/HCPCS: 99212 ==

== ENCOUNTER 2022-07-09 07:04 | Day surgery (SDC) | payer MEDICAID, SELFPAY ==
[2022-06-29 09:59] VITALS: BMI 22.9
[2022-07-09] MEDS: Lactated Ringers 1,000 ML 100 ML IVCONT (07:43)
[2022-07-09 07:55] VITALS: BP 129/52; PULSE 71; RESP 18; TEMP 36.7; O2SAT 100
--- NOTE | 2022-07-09 07:55 | HO.ANESPROP2 ---
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, small (Acute) Fibromuscular dysplasia (Acute) Palpitations (Acute) Gait disorder (Acute) Lumbar radiculopathy (Acute) Dense breast tissue on mammogram (Acute) Abnormal magnetic resonance imaging of left breast (Acute) Left breast mass (Acute) Bilateral mastodynia (Acute) Hypertension (Acute) NSTEMI (non-ST elevated myocardial infarction) (Acute) Status post cardiac catheterization (Acute) 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) Past Medical History Medical History Aneurysm Ductal carcinoma in situ (DCIS) of right breast Gout History of COVID-19 History of radiation therapy Hypertension Hypothyroidism NSTEMI (non-ST elevated myocardial infarction) Sleep apnea Stroke Family History Family History Daughter Thyroid cancer Paternal Grandmother Breast cancer Thyroid cancer Diabetes Sister Diabetes HTN (hypertension) Sister HTN (hypertension) Sister HTN (hypertension) Sister HTN (hypertension) Sister HTN (hypertension) Father Brain tumor Mother Heart attack Family history of problems with anesthesia: No Surgical History Surgical History History of bilateral tubal ligation (2003) History of endometrial ablation (2010) History of lumpectomy of right breast (10/07/19) History of right breast biopsy (09/08/19) Status post cardiac catheterization History of Problems with Anesthesia: No Social History Social History Household Members: Children Household Members Other:: daughter Housing: Apartment Are you a primary long term acute care registered nurse to a significant other at home: No Do you presently have visiting nurse or other home services: No Alcohol intake: former Year quit: 2020 Patient Tobacco Use Status: Former Tobacco user Quit Date: 2020 Tobacco use type: Cigarette Years Smoked: 10 +/- service: No Current occupational status: employed Current occupation: rt handed Meds Allergies Allergy/AdvReac Type Severity Reaction Status Date / Time Gadolinium-Containing Allergy Mild Rash Verified 07/09/22 08:06 Contrast Medi Active Medications: Current Medications Lactated Ringer's (Lr) 1,000 mls @ 100 mls/hr IVCONT .Q10H BESSIE Last Admin: 07/09/22 07:43 Dose: 100 mls/hr Home Medications Medication Instructions Recorded Confirmed Last Taken Type ibuprofen 800 mg tablet 800 mg PO BID 03/22/20 06/28/22 07/02/22 History levothyroxine 125 mcg tablet 125 mcg PO DAILY 07/25/20 06/28/22 Unknown History aspirin 81 mg tablet,delayed 81 mg PO DAILY 01/02/21 06/28/22 07/02/22 History release (Adult Low Dose Aspirin) atorvastatin 40 mg tablet 40 mg PO BEDTIME 01/02/21 06/29/22 Unknown History mirtazapine 30 mg tablet 30 mg PO DAILY 01/02/21 06/28/22 Unknown History venlafaxine 37.5 mg 75 mg PO DAILY 01/02/21 06/28/22 Unknown History capsule,extended release 24 hr cholecalciferol (vitamin D3) 50 50 mcg PO DAILY 05/31/21 06/28/22 Unknown History mcg (2,000 unit) capsule sodium chloride 0.65 % nasal spray 2 spray intranasal QID PRN Bleeding 05/31/21 06/28/22 Unknown History aerosol (Deep Sea Nasal) topiramate 100 mg tablet 100 mg PO BEDTIME 05/31/21 06/28/22 Unknown History gabapentin 100 mg capsule 100 mg PO DAILY PRN Pain 07/26/21 06/28/22 Unknown History amlodipine 5 mg tablet 10 mg PO DAILY 01/24/22 06/28/22 Unknown History bupropion HCl 150 mg tablet,12 hr 150 mg PO DAILY 04/25/22 06/28/22 Unknown History sustained-release hydroxyzine pamoate 25 mg capsule 25 mg PO BEDTIME PRN insomnia 04/25/22 06/28/22 Unknown History Exam Exam Date and Time: July 09, 2022 0755 Height,Weight and Vital Signs: Height 5 ft 2 in Weight 57 kg Airway Mallampati Class: II TM Dist: >3cm Heart: rrr Lungs: cta Assessment and Plan Assessment Anesthesia Assessment: Anesthesia Plan Discussed and Chart Reviewed Final Anesthetic Review Family History of Problems with Anesthesia: No History of Problems with Anesthesia: No NPO: Yes ASA Class: III Final Preanesthetic Review: No Changes in Pt Med Stat, Meds/Allgs Chart Reviewed and Consent Obtained/Reviewed Patient Risk: Intermediate Procedure Risk: Low Anesthetic Plan Anesthetic Plan: GA Disposition: Standard PACU
--- NOTE | 2022-07-09 08:13 | MHC.SHP ---
Pre-Procedural Eval Section A Date of Service: 07/09/22 The patient is an INPATIENT: No Changes since office visit: Yes Patient answered all questions; No Cold of Flu in the past 2 weeks, No New Medical Problems and No Changes in Medication The History & Physical has been completed within 30 days and I have reviewed it.: Yes Section B Chief Complaint: Mastodynia,lump in breast Allergies: Allergies Allergy/AdvReac Type Severity Reaction Status Date / Time Gadolinium-Containing Allergy Mild Rash Verified 07/09/22 08:06 Contrast Medi Plan Diagnosis/Plan: Unchanged I have reviewed the history and physical and performed a pertinent physical examination on my patient. No changes have occurred unless specified. Time Spent With Patient Time: Total time managing care of this patient today ____ minutes.
--- NOTE | 2022-07-09 09:24 | W.PM.OPN ---
Operative Note Operative Note Date of Service: 07/09/22 Narrative: Preoperative diagnosis:Left breaset lump Postoperative diagnosis:same, left breast cyst/abscess Procedure:Excision left breast mass, drainage left breast cyst and abscess Surgeon: Tony Osuna MD Neonatal Nurse Practitioner: Aparna Shukla PA-C Anesthesia:General LMA Indications for procedure:47-year-old female patient with prior history of right breast ductal carcinoma in situ now presenting with a recurring cyst of the left breast at the 12 o'clock position palpable mass. She presents today for a left breast lumpectomy. Operative findings: 1.5 cm palpable mass located in the 12 o'clock position just above the nipple-areolar complex. A large cyst containing white fluid suggestive of an abscess. Cultures of the fluid obtained. Additional clear fluid cyst also excised. Specimen: Left breast lumpectomy, wound cultures Estimated blood loss: less than 2 mL Complications: none Procedure details: patient was brought to the OR placed in supine position. After administering general anesthesia the patient's left breast was prepped with ChloraPrep and draped in a sterile fashion. A surgical time-out was called the consent confirmed. Patient received preoperative antibiotics and Venodyne boots were in place. Local anesthesia consisting of 0.5% Sensorcaine with epinephrine was then infiltrated over the nipple-areolar complex from to 11 and 1 o'clock position. A curvilinear incision was then made at the margin of the areola dislocation. This carried out through subcutaneous tissue. Superior inferior skin flaps were then created. The palpable mass was then grasped with a at bowels clamp. This was then excised using a curved Bourne scissor. Several large cysts and an abscess collection was then drained. A culture of the abscess fluid was obtained. The entire cyst and palpable mass were then excised again using the scissors. Hemostasis was assured using electrocautery. The lesion was passed off the table and sent to pathology for further examination. Wounds were then checked for hemostasis once again. Wounds were irrigated with saline solution and suctioned dry. Deep breast tissue was then reapproximated using interrupted 3-0 Polysorb sutures. Superficial breast tissue in dermis were then reapproximated using interrupted 3-0 Polysorb sutures. Skin was closed using a running subcuticular 4-0 Polysorb suture . Steri-Strips, 2 x 2 gauze and Tegaderm were then applied. The patient tolerated the procedure well. Sponge, instrument, and needle counts reported as correct. Patient was transferred to PACU in stable condition.
[2022-07-09 09:32] VITALS: BP 153/91; PULSE 74; RESP 16; TEMP 36.2; O2SAT 100
[2022-07-09 09:37] VITALS: BP 155/82; PULSE 67; RESP 16; O2SAT 100
[2022-07-09 09:42] VITALS: BP 162/83; PULSE 65; RESP 16; O2SAT 100
[2022-07-09 09:47] VITALS: BP 133/83; PULSE 68; RESP 16; O2SAT 100
[2022-07-09] MEDS: oxyCODONE HCl Immed Release 5 MG TABLET PO (09:55)
[2022-07-09 10:02] VITALS: BP 155/96; PULSE 65; RESP 16; TEMP 36.8; O2SAT 100
== END 2022-07-09 11:00 | disposition home or self-care (01) ==
PROVIDERS: PCP General Practice; Visit Provider Surgery
PROC: (CPT 19301; principal; 2022-07-09 08:40)
DX: N60.02 Solitary cyst of left breast (principal); N61.1 Abscess of the breast and nipple; N64.4 Mastodynia; Z85.3 Personal history of malignant neoplasm of breast; I69.354 Hemiplegia and hemiparesis following cerebral infarction affecting left non-dominant side; I10 Essential (primary) hypertension; I25.2 Old myocardial infarction; G47.33 Obstructive sleep apnea (adult) (pediatric); Z79.1 Long term (current) use of non-steroidal anti-inflammatories (NSAID); Z79.82 Long term (current) use of aspirin; Z79.899 Other long term (current) drug therapy; Z91.041 Radiographic dye allergy status; Z87.891 Personal history of nicotine dependence; Z86.16 Personal history of COVID-19
CPT/HCPCS: 19301; 87070; 87205; 88305; 88307; J0131; J0690; J1100; J2250; J2405; J3010

== ENCOUNTER → 2022-07-17 09:56 | Outpatient (BNVA) | payer MEDICAID, SELFPAY | PROVIDERS: PCP General Practice; Visit Provider Surgery | DX: Z13.89 Encounter for screening for other disorder (principal) ==

== ENCOUNTER → 2022-08-07 15:10 | Outpatient (BNVA) | payer MEDICAID, SELFPAY | PROVIDERS: PCP Nurse Practitioner Family; Referring Provider Nurse Practitioner Family; Visit Provider Nurse Practitioner Family | DX: I21.4 Non-ST elevation (NSTEMI) myocardial infarction (principal); R00.2 Palpitations; G47.30 Sleep apnea, unspecified; Z98.890 Other specified postprocedural states | CPT/HCPCS: 93005; 99212 ==

== ENCOUNTER → 2022-08-20 13:56 | Outpatient (BNVA) | payer MEDICAID, SELFPAY | PROVIDERS: PCP General Practice; Referring Provider General Practice; Visit Provider Surgery | DX: L76.82 Other postprocedural complications of skin and subcutaneous tissue (principal); R22.9 Localized swelling, mass and lump, unspecified; Y83.8 Other surgical procedures as the cause of abnormal reaction of the patient, or of later complication, without mention of misadventure at the time of the procedure | CPT/HCPCS: 99211 ==

== ENCOUNTER → 2022-09-06 15:38 | Outpatient (BNVA) | payer MEDICAID, SELFPAY | PROVIDERS: PCP General Practice; Visit Provider Surgery | DX: N64.4 Mastodynia (principal); D05.11 Intraductal carcinoma in situ of right breast; Z92.3 Personal history of irradiation | CPT/HCPCS: 99212 ==

== ENCOUNTER → 2022-09-20 09:58 | Outpatient (BNVA) | payer MEDICAID, SELFPAY | PROVIDERS: PCP General Practice; Visit Provider Surgery | DX: N60.02 Solitary cyst of left breast (principal); D05.11 Intraductal carcinoma in situ of right breast; I89.0 Lymphedema, not elsewhere classified; Z17.1 Estrogen receptor negative status [ER-]; Z92.3 Personal history of irradiation | CPT/HCPCS: 99212 ==

== ENCOUNTER → 2022-10-01 06:55 | Day surgery (SDC) | payer MEDICAID, SELFPAY ==
[2022-09-26 12:03] VITALS: BMI 22.1
--- NOTE | 2022-09-26 13:54 | P.CONAN_ITS ---
HPI - Anesthesia Eval Consult details Narrative: 47yo F for Left Excision Breast Cyst x2 s/p lumpectomy 06/2022 with GA-LMA 4. Was cardiac optimized prior. Per 04/2022 cardiac eval: She was seen in December 2020 when she presented to [facility] with chest pain and ruled in for NSTEMI.? She was taken for cardiac catheterization which showed spontaneous coronary artery dissection involving the ramus intermedius branch.? She was conservatively managed.? She also had cerebral aneurysm which was treated with pipeline Shield stent. She had minor stroke after that. Most recent cardiac eval 07/2022 with reports of palpitations - found to have isolated PVC's. Also, newer dx of NICHOLAS, awaiting nasal pillow. 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, small (Acute) Fibromuscular dysplasia (Acute) Palpitations (Acute) Gait disorder (Acute) Lumbar radiculopathy (Acute) Dense breast tissue on mammogram (Acute) Abnormal magnetic resonance imaging of left breast (Acute) Left breast mass (Acute) Bilateral mastodynia (Acute) Cyst of left breast (Acute) Sleep apnea (Acute) Hypertension (Acute) NSTEMI (non-ST elevated myocardial infarction) (Acute) Status post cardiac catheterization (Acute) 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) Past Medical History Medical History (Updated 09/20/22 @ 14:26 by Tony Osuna MD) Aneurysm Ductal carcinoma in situ (DCIS) of right breast Gout History of COVID-19 History of radiation therapy Hypertension Hypothyroidism NSTEMI (non-ST elevated myocardial infarction) Sleep apnea Stroke Family History Family History Daughter Thyroid cancer Paternal Grandmother Breast cancer Thyroid cancer Diabetes Sister Diabetes HTN (hypertension) Sister HTN (hypertension) Sister HTN (hypertension) Sister HTN (hypertension) Sister HTN (hypertension) Father Brain tumor Mother Heart attack Family history of problems with anesthesia: No Surgical History Surgical History (Updated 09/26/22 @ 12:02 by Fabi Olvera RN) History of bilateral tubal ligation (2003) History of breast lump/mass excision (07/09/22) History of endometrial ablation (2010) History of lumpectomy of right breast (10/07/19) History of right breast biopsy (09/08/19) Status post cardiac catheterization History of Problems with Anesthesia: No Social History Social History Household Members: Children Household Members Other:: daughter Housing: Apartment Are you a primary healthcare network pricing consultant to a significant other at home: No Do you presently have visiting nurse or other home services: No Alcohol intake: former Year quit: 2020 Patient Tobacco Use Status: Never used Tobacco Tobacco use type: Cigarette Years Smoked: 10 +/- Use of substances other than those prescribed or required for medical reasons: No Have you been hit, kicked, punched, or otherwise hurt by someone within the past year? If so, by whom?: No Are you DNR?: No Advance Directives: No Advance Directives Information Provided: Yes Advance Directives on File: No Recently lost weight without trying: No Nutrition Risks: No Nutritional Risk Patient : No FDLMP: 2017 service: No Current occupational status: employed Current occupation: rt handed Meds Allergies Allergy/AdvReac Type Severity Reaction Status Date / Time Gadolinium-Containing Allergy Mild Rash Verified 09/20/22 10:23 Contrast Medi Iodinated Contrast Media Allergy Rash Verified 09/26/22 12:00 [IV Contrast Dye] Home Medications Medication Instructions Recorded Confirmed Last Taken Type ibuprofen 800 mg tablet 800 mg PO BID 03/22/20 09/20/22 07/02/22 History levothyroxine 125 mcg tablet 125 mcg PO DAILY 07/25/20 09/26/22 Unknown History atorvastatin 40 mg tablet 40 mg PO BEDTIME 01/02/21 09/26/22 Unknown History mirtazapine 30 mg tablet 30 mg PO DAILY 01/02/21 09/26/22 Unknown History venlafaxine 37.5 mg 75 mg PO BEDTIME 01/02/21 09/26/22 Unknown History capsule,extended release 24 hr cholecalciferol (vitamin D3) 50 50 mcg PO DAILY 05/31/21 09/20/22 Unknown History mcg (2,000 unit) capsule topiramate 100 mg tablet 100 mg PO BEDTIME 05/31/21 09/26/22 Unknown History gabapentin 100 mg capsule 100 mg PO DAILY PRN Pain 07/26/21 09/26/22 Unknown History amlodipine 5 mg tablet 10 mg PO DAILY 01/24/22 09/26/22 Unknown History bupropion HCl 150 mg tablet,12 hr 150 mg PO DAILY 04/25/22 09/26/22 Unknown History sustained-release hydroxyzine pamoate 25 mg capsule 25 mg PO BEDTIME PRN insomnia 04/25/22 09/26/22 Unknown History Exam Exam Date and Time: September 26, 2022 1354 Height,Weight and Vital Signs: Height 5 ft 2 in Weight 54.885 kg Narrative Narrative: EKG 07/2022 SR, 2 PVCs, no acute ST/ T wave abn, QTc 403 ms, rate 67 ECHO 2021 Conclusions: - Normal left ventricular size, thickness, systolic function, and wall motion. ? - Normal right ventricular cavity size and systolic function.? ? - There is mild aortic valve regurgitation.? ? ? Holter 2021 Conclusion: 1. Patient was monitored for total period of 3 days and 20 hours 2. Baseline rhythm is normal sinus with average heart of 72 beats per minute 3. No significant pauses or bradycardia noted 4. Total of 159 PVCs accounting for 0.05% of total burden account for rare PVCs 5. No patient reported events Assessment and Plan Assessment Anesthesia Assessment: Chart Reviewed Final Anesthetic Review Family History of Problems with Anesthesia: No History of Problems with Anesthesia: No
[2022-10-01] VITALS (7 sets, daily range): BP systolic 128–142; BP diastolic 49–62; PULSE 60–72; RESP 16–18; TEMP 36.1–36.6; O2SAT 98–100
[2022-10-01] MEDS: Lactated Ringers 1,000 ML 100 ML IVCONT (07:15)
--- NOTE | 2022-10-01 07:59 | PC.NURSE ---
patient has right limb restriction
--- NOTE | 2022-10-01 08:16 | MHC.SHP ---
Pre-Procedural Eval Section A Date of Service: 10/01/22 The patient is an INPATIENT: No Changes since office visit: Yes Patient answered all questions; No Cold of Flu in the past 2 weeks, No New Medical Problems and No Changes in Medication The History & Physical has been completed within 30 days and I have reviewed it.: Yes Section B Chief Complaint: Solitary cyst of left breast Allergies: Allergies Allergy/AdvReac Type Severity Reaction Status Date / Time Gadolinium-Containing Allergy Mild Rash Verified 09/20/22 10:23 Contrast Medi Iodinated Contrast Media Allergy Rash Verified 09/26/22 12:00 [IV Contrast Dye] Plan Diagnosis/Plan: Unchanged I have reviewed the history and physical and performed a pertinent physical examination on my patient. No changes have occurred unless specified. Time Spent With Patient Time: Total time managing care of this patient today ____ minutes.
--- NOTE | 2022-10-01 08:17 | HO.ANESPROP2 ---
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, small (Acute) Fibromuscular dysplasia (Acute) Palpitations (Acute) Gait disorder (Acute) Lumbar radiculopathy (Acute) Dense breast tissue on mammogram (Acute) Abnormal magnetic resonance imaging of left breast (Acute) Left breast mass (Acute) Bilateral mastodynia (Acute) Cyst of left breast (Acute) Sleep apnea (Acute) Hypertension (Acute) NSTEMI (non-ST elevated myocardial infarction) (Acute) Status post cardiac catheterization (Acute) 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) Past Medical History Medical History Aneurysm Ductal carcinoma in situ (DCIS) of right breast Gout History of COVID-19 History of radiation therapy Hypertension Hypothyroidism NSTEMI (non-ST elevated myocardial infarction) Sleep apnea Stroke Family History Family History Daughter Thyroid cancer Paternal Grandmother Breast cancer Thyroid cancer Diabetes Sister Diabetes HTN (hypertension) Sister HTN (hypertension) Sister HTN (hypertension) Sister HTN (hypertension) Sister HTN (hypertension) Father Brain tumor Mother Heart attack Family history of problems with anesthesia: No Surgical History Surgical History History of bilateral tubal ligation (2003) History of breast lump/mass excision (07/09/22) History of endometrial ablation (2010) History of lumpectomy of right breast (10/07/19) History of right breast biopsy (09/08/19) Status post cardiac catheterization History of Problems with Anesthesia: No Social History Social History Household Members: Children Household Members Other:: daughter Housing: Apartment Are you a primary manager intensive care unit to a significant other at home: No Do you presently have visiting nurse or other home services: No Alcohol intake: former Year quit: 2020 Patient Tobacco Use Status: Never used Tobacco Tobacco use type: Cigarette Years Smoked: 10 +/- Use of substances other than those prescribed or required for medical reasons: No Have you been hit, kicked, punched, or otherwise hurt by someone within the past year? If so, by whom?: No Are you DNR?: No Advance Directives: No Advance Directives Information Provided: Yes Advance Directives on File: No Recently lost weight without trying: No Nutrition Risks: No Nutritional Risk Patient : No FDLMP: 2017 service: No Current occupational status: employed Current occupation: rt handed Meds Allergies Allergy/AdvReac Type Severity Reaction Status Date / Time Gadolinium-Containing Allergy Mild Rash Verified 09/20/22 10:23 Contrast Medi Iodinated Contrast Media Allergy Rash Verified 09/26/22 12:00 [IV Contrast Dye] Active Medications: Current Medications Fentanyl (Fentanyl Citrate/Pf 100 Mcg/2 Ml Vial) 50 mcg IVPUSH Q5M PRN; Protocol PRN Reason: Pain, Severe (Pain Scale 7-10) Lactated Ringer's (Lr) 1,000 mls @ 100 mls/hr IVCONT .Q10H BESSIE Last Admin: 10/01/22 07:15 Dose: 100 mls/hr Ondansetron HCl (Ondansetron Hcl 4 Mg/2 Ml Vial) 4 mg IVPUSH ONCE PRN PRN Reason: Nausea and Vomiting Home Medications Medication Instructions Recorded Confirmed Last Taken Type ibuprofen 800 mg tablet 800 mg PO BID 03/22/20 09/20/22 07/02/22 History levothyroxine 125 mcg tablet 125 mcg PO DAILY 07/25/20 09/26/22 Unknown History atorvastatin 40 mg tablet 40 mg PO BEDTIME 01/02/21 09/26/22 Unknown History mirtazapine 30 mg tablet 30 mg PO DAILY 01/02/21 09/26/22 Unknown History venlafaxine 37.5 mg 75 mg PO BEDTIME 01/02/21 09/26/22 Unknown History capsule,extended release 24 hr cholecalciferol (vitamin D3) 50 50 mcg PO DAILY 05/31/21 09/20/22 Unknown History mcg (2,000 unit) capsule topiramate 100 mg tablet 100 mg PO BEDTIME 05/31/21 09/26/22 Unknown History gabapentin 100 mg capsule 100 mg PO DAILY PRN Pain 07/26/21 09/26/22 Unknown History amlodipine 5 mg tablet 10 mg PO DAILY 01/24/22 09/26/22 Unknown History bupropion HCl 150 mg tablet,12 hr 150 mg PO DAILY 04/25/22 09/26/22 Unknown History sustained-release hydroxyzine pamoate 25 mg capsule 25 mg PO BEDTIME PRN insomnia 04/25/22 09/26/22 Unknown History Exam Exam Date and Time: October 01, 2022 0817 Height,Weight and Vital Signs: Height 5 ft 2 in Weight 54.885 kg Last Vital Signs Temp 97.9 F 10/01/22 07:58 Pulse 71 10/01/22 07:58 Resp 18 10/01/22 07:58 BP 135/54 L 10/01/22 07:58 Pulse Ox 98 10/01/22 07:58 O2 Del Method Room Air 10/01/22 07:58 Assessment and Plan Final Anesthetic Review Family History of Problems with Anesthesia: No History of Problems with Anesthesia: No
--- NOTE | 2022-10-01 08:22 | HO.ANESPROP2 ---
[facility] Active Problems Active Problems: All Active Problems (Updated 09/20/22 @ 14:26 by Tony Osuna MD) Breast mass, right (Acute) Breast pain, right (Acute) Lymphedema of breast (Acute) Right axillary swelling (Acute) Mondor's disease of breast (Acute) Right shoulder pain (Acute) Scapular dyskinesis (Acute) Coronary artery dissection (Acute) Renal artery aneurysm (Acute) Supraclinoid carotid artery aneurysm, small (Acute) Fibromuscular dysplasia (Acute) Palpitations (Acute) Gait disorder (Acute) Lumbar radiculopathy (Acute) Dense breast tissue on mammogram (Acute) Abnormal magnetic resonance imaging of left breast (Acute) Left breast mass (Acute) Bilateral mastodynia (Acute) Cyst of left breast (Acute) Sleep apnea (Acute) Hypertension (Acute) NSTEMI (non-ST elevated myocardial infarction) (Acute) Status post cardiac catheterization (Acute) 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) Past Medical History Medical History Aneurysm Ductal carcinoma in situ (DCIS) of right breast Gout History of COVID-19 History of radiation therapy Hypertension Hypothyroidism NSTEMI (non-ST elevated myocardial infarction) Sleep apnea Stroke Family History Family History Daughter Thyroid cancer Paternal Grandmother Breast cancer Thyroid cancer Diabetes Sister Diabetes HTN (hypertension) Sister HTN (hypertension) Sister HTN (hypertension) Sister HTN (hypertension) Sister HTN (hypertension) Father Brain tumor Mother Heart attack Family history of problems with anesthesia: No Surgical History Surgical History History of bilateral tubal ligation (2003) History of breast lump/mass excision (07/09/22) History of endometrial ablation (2010) History of lumpectomy of right breast (10/07/19) History of right breast biopsy (09/08/19) Status post cardiac catheterization History of Problems with Anesthesia: No Social History Social History Household Members: Children Household Members Other:: daughter Housing: Apartment Are you a primary director of medicare to a significant other at home: No Do you presently have visiting nurse or other home services: No Alcohol intake: former Year quit: 2020 Patient Tobacco Use Status: Never used Tobacco Tobacco use type: Cigarette Years Smoked: 10 +/- Use of substances other than those prescribed or required for medical reasons: No Have you been hit, kicked, punched, or otherwise hurt by someone within the past year? If so, by whom?: No Are you DNR?: No Advance Directives: No Advance Directives Information Provided: Yes Advance Directives on File: No Recently lost weight without trying: No Nutrition Risks: No Nutritional Risk Patient : No FDLMP: 2017 service: No Current occupational status: employed Current occupation: rt handed Meds Allergies Allergy/AdvReac Type Severity Reaction Status Date / Time Gadolinium-Containing Allergy Mild Rash Verified 09/20/22 10:23 Contrast Medi Iodinated Contrast Media Allergy Rash Verified 09/26/22 12:00 [IV Contrast Dye] Active Medications: Current Medications Fentanyl (Fentanyl Citrate/Pf 100 Mcg/2 Ml Vial) 50 mcg IVPUSH Q5M PRN; Protocol PRN Reason: Pain, Severe (Pain Scale 7-10) Lactated Ringer's (Lr) 1,000 mls @ 100 mls/hr IVCONT .Q10H BESSIE Last Admin: 10/01/22 07:15 Dose: 100 mls/hr Ondansetron HCl (Ondansetron Hcl 4 Mg/2 Ml Vial) 4 mg IVPUSH ONCE PRN PRN Reason: Nausea and Vomiting Home Medications Medication Instructions Recorded Confirmed Last Taken Type ibuprofen 800 mg tablet 800 mg PO BID 03/22/20 09/20/22 07/02/22 History levothyroxine 125 mcg tablet 125 mcg PO DAILY 07/25/20 09/26/22 Unknown History atorvastatin 40 mg tablet 40 mg PO BEDTIME 01/02/21 09/26/22 Unknown History mirtazapine 30 mg tablet 30 mg PO DAILY 01/02/21 09/26/22 Unknown History venlafaxine 37.5 mg 75 mg PO BEDTIME 01/02/21 09/26/22 Unknown History capsule,extended release 24 hr cholecalciferol (vitamin D3) 50 50 mcg PO DAILY 05/31/21 09/20/22 Unknown History mcg (2,000 unit) capsule topiramate 100 mg tablet 100 mg PO BEDTIME 05/31/21 09/26/22 Unknown History gabapentin 100 mg capsule 100 mg PO DAILY PRN Pain 07/26/21 09/26/22 Unknown History amlodipine 5 mg tablet 10 mg PO DAILY 01/24/22 09/26/22 Unknown History bupropion HCl 150 mg tablet,12 hr 150 mg PO DAILY 04/25/22 09/26/22 Unknown History sustained-release hydroxyzine pamoate 25 mg capsule 25 mg PO BEDTIME PRN insomnia 04/25/22 09/26/22 Unknown History Exam Exam Date and Time: October 01, 2022821 Height,Weight and Vital Signs: Height 5 ft 2 in Weight 54.885 kg Last Vital Signs Temp 97.9 F 10/01/22 07:58 Pulse 71 10/01/22 07:58 Resp 18 10/01/22 07:58 BP 135/54 L 10/01/22 07:58 Pulse Ox 98 10/01/22 07:58 O2 Del Method Room Air 10/01/22 07:58 Airway Mallampati Class: II TM Dist: >3cm Neck ROM: Full Heart: rrr Lungs: clear Assessment and Plan Final Anesthetic Review Family History of Problems with Anesthesia: No History of Problems with Anesthesia: No ASA Class: III Final Preanesthetic Review: No Changes in Pt Med Stat, Meds/Allgs Chart Reviewed, Consent Obtained/Reviewed and Anes Risks/Benef Reviewed Patient Risk: Intermediate Procedure Risk: Low Anesthetic Plan Anesthetic Plan: GA Disposition: Standard PACU
--- NOTE | 2022-10-01 09:12 | P.OP_ITS ---
Operative Note Operative Note Date of Service: 10/01/22 Narrative: Preoperative diagnosis: Left breast cyst x2 Postoperative diagnosis: same Procedure: excision of left breast x2 Surgeon: Tony Osuna MD Senior It Architect: Aparna Shukla PA-C Anesthesia: general LMA Indications for procedure: 47-year-old female patient presenting with previous history of breast abscess left side now presenting with painful breast cyst x2 located in the 09:00 o'clock and 05:00 o'clock location Operative findings: cystic collection 09:00 o'clock and 05:00 o'clock left breast Specimen: left breast cyst x2, 09:00 o'clock, 05:00 o'clock Estimated blood loss: 2 mL Complications: none Procedure details: patient was brought to the OR placed in a supine position. After administering general anesthesia the patient's left breast prepped with ChloraPrep and draped in a sterile fashion. A surgical time-out was called the consent confirmed. Patient received preoperative antibiotics and Venodyne boots were in place. Local anesthesia consisting of 0.5% Sensorcaine with epinephrine was infiltrated in a curvilinear fashion at the margin of the areola between the 5 and 07:00 o'clock location. Incision was then made with a scalpel carried out through subcutaneous tissue. Superior inferior skin flaps were then created the left quad repaired sharp dissection was then used to dissect along the 9 o'clock position to the palpable mass. Was grasped with an Allis clamp and sharp dissec tion used to dissect around palpable lesion. This was passed off the table sent to pathology for further examination. In a similar fashion the 05:00 o'clock lesion was grasped with an Allis clamp and sharp dissection used to dissect the lesion free from the surrounding subcutaneous and breast tissue. A small purulent collection was identified in aspirated. Cultures could not be obtained due to the small amount of fluid. The lesion was passed off the table sent to pathology for further examination. Wounds were then irrigated with saline solution suctioned dry. Wounds were checked for hemostasis using electrocautery. Deep breast tissue was reapproximated using interrupted 3-0 Polysorb sutures. Dermis was reapproximated using interrupted 3-0 Polysorb sutures. Skin was closed using a running subcuticular 4-0 Polysorb suture. Steri-Strips, 2 x 2 gauze and Tegaderm were then applied. The patient tolerated the procedure well. Sponge, instrument, and needle counts reported as correct. The patient was transferred to PACU in stable condition.
[2022-10-01] MEDS: oxyCODONE HCl Immed Release 5 MG TABLET PO (09:37)
== END | disposition home or self-care (01) ==
PROVIDERS: PCP General Practice; Visit Provider Surgery
PROC: (CPT 19120; principal; 2022-10-01 08:40)
DX: N60.02 Solitary cyst of left breast (principal); N60.82 Other benign mammary dysplasias of left breast; N62 Hypertrophy of breast; Z85.3 Personal history of malignant neoplasm of breast; G47.33 Obstructive sleep apnea (adult) (pediatric); I10 Essential (primary) hypertension; M10.9 Gout, unspecified; E03.9 Hypothyroidism, unspecified; Z79.82 Long term (current) use of aspirin; Z79.1 Long term (current) use of non-steroidal anti-inflammatories (NSAID); Z86.73 Personal history of transient ischemic attack (TIA), and cerebral infarction without residual deficits; Z79.899 Other long term (current) drug therapy; Z92.3 Personal history of irradiation; Z86.16 Personal history of COVID-19; Z87.891 Personal history of nicotine dependence
CPT/HCPCS: 19000; 19120 ×2; 88304; 88305; J0690; J1100; J2250; J2405; J3010

== ENCOUNTER → 2022-10-09 14:43 | Outpatient (BNVA) | payer MEDICAID, SELFPAY | PROVIDERS: PCP General Practice; Visit Provider Surgery | DX: N60.02 Solitary cyst of left breast (principal) | CPT/HCPCS: 99212 ==

== ENCOUNTER 2022-12-05 15:09 | Outpatient (AMB) | payer MEDICAID, SELFPAY ==
--- NOTE | 2022-12-05 15:14 | MHC.OFFVIS ---
Intake Vital Signs 12/05/22 15:15 Height 5 ft 2 in Weight 124 lb 12.506 oz BMI 22.8 BP 142/94 H Blood Pressure Location Lt brachial Position Sitting Pulse 78 Pulse Source Pulse Oximeter Intake Visit Reasons: 4 MON FUP PER DC Intake Note: 4 month follow up. Search Coordinator Required: No Accompanied by: Self / Same As Patient Allergies Gadolinium-Containing Contrast Medi Allergy (Mild, Verified 12/05/22 15:16) Rash Iodinated Contrast Media [IV Contrast Dye] Allergy (Verified 12/05/22 15:16) Rash Medication List - Last Reconciled 12/05/22 by Jose A Gaona MD amlodipine 10 mg PO DAILY aspirin 81 mg PO DAILY atorvastatin 40 mg PO BEDTIME bupropion HCl 150 mg PO DAILY cholecalciferol (vitamin D3) 50 mcg PO DAILY gabapentin 100 mg PO DAILY PRN hydroxyzine pamoate 25 mg PO BEDTIME PRN ibuprofen 800 mg PO BID levothyroxine 125 mcg PO DAILY metoprolol succinate ER 50 mg PO BID 90 days mirtazapine 30 mg PO DAILY oxycodone 5 mg PO Q6H PRN oxycodone 5 mg PO Q6H PRN sulfamethoxazole-trimethoprim 800-160 mg (Bactrim DS) 1 tab PO Q12H topiramate 100 mg PO BEDTIME venlafaxine ER 75 mg PO BEDTIME HPI HPI Comments History of Present Illness Details Very pleasant 47-year-old female here for follow-up. She was seen in December 2020 when she presented to [facility] with chest pain and ruled in for NSTEMI. 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 She was conservatively managed. She also had cerebral aneurysm which was treated with pipeline Shield stent. She had minor stroke after that. On last visit she was complaining of palpitations. She was referred for 3 Holter monitor. This showed sinus rhythm with average heart rate 2 beats per minute, no significant pauses or bradycardia noted. 159 PVCs were noted. 04/25/22: She is here for follow-up. She is saying her blood pressure was fluctuating up and down had her amlodipine was increased to 10 mg daily. Her blood pressure in the office currently stable. She is denying any chest discomfort or shortness of breath currently. She is complaining of palpitations. 12/05/22: She is here for follow-up. She was seen in August by Teresa. She is complaining her blood pressure has been rising and at times she has noticed her blood pressure to be as high as 180s. She checks with her own automated blood pressure cuff at home. She has been taking amlodipine 10 mg and metoprolol succinate 50 mg twice a day. She also gets some sharp left-sided chest pains. She is describing stabbing sensation which also happens when she has elevated blood pressure. She has background of fibromuscular dysplasia. [facility] Medical History Aneurysm Ductal carcinoma in situ (DCIS) of right breast Gout History of COVID-19 History of radiation therapy Hypertension Hypothyroidism NSTEMI (non-ST elevated myocardial infarction) Sleep apnea Stroke Surgical History History of bilateral tubal ligation (2003) History of breast lump/mass excision (07/09/22) History of endometrial ablation (2010) History of lumpectomy of right breast (10/07/19) History of removal of cyst History of right breast biopsy (09/08/19) Status post cardiac catheterization Family History Daughter Thyroid cancer Paternal Grandmother Breast cancer Thyroid cancer Diabetes Sister Diabetes HTN (hypertension) Sister HTN (hypertension) Sister HTN (hypertension) Sister HTN (hypertension) Sister HTN (hypertension) Father Brain tumor Mother Heart attack Social History Household Members: Children Household Members Other:: daughter Housing: Apartment Are you a primary wound care physician to a significant other at home: No Do you presently have visiting nurse or other home services: No Alcohol intake: former Year quit: 2020 Patient Tobacco Use Status: Never used Tobacco Tobacco use type: Cigarette Years Smoked: 10 +/- service: No Current occupational status: employed Current occupation: rt handed Review of Systems Const Denies weakness ENT Denies dizziness Card Denies chest pain, Denies chest pain with activity, Denies syncope, Denies rapid heart rate, Denies pedal edema, Denies edema, Denies leg edema, Denies lightheadedness, Denies palpitations, Denies dyspnea, Denies dyspnea on exertion and Denies orthopnea Resp Denies cough, Denies dyspnea and Denies dyspnea on exertion GI Denies hematochezia and Denies change in stool character Musc Denies abnormal gait, Denies muscle cramps, Denies muscle weakness, Denies numbness, Denies radiating pain into limb and Denies tingling Neuro Denies abnormal gait, Denies dizziness, Denies syncope, Denies numbness, Denies tingling and Denies weakness Endo Denies palpitations Physical Exam Vital Signs: Last Vital Signs Pulse 78 12/05/22 15:15 BP 142/94 H 12/05/22 15:15 BMI result Body Mass Index 22.8 GENERAL APPEARANCE: in no acute distress, pleasant. NECK: no carotid bruit, no jugular venous distention. SKIN: no suspicious lesions, warm and dry. HEART: no murmurs, regular rate and rhythm. LUNGS: clear to auscultation bilaterally. ABDOMEN: soft, nontender. EXTREMITIES: no edema. PERIPHERAL PULSES: equal. NEUROLOGIC: No gross deficits, AAO X 3 Assessment & Plan Assessment & Plan (1) Hypertension: Code(s): I10 - Essential (primary) hypertension (2) Fibromuscular dysplasia: Code(s): I77.3 - Arterial fibromuscular dysplasia (3) Chest pain: Code(s): R07.9 - Chest pain, unspecified Plan Pleasant 47-year-old female who is here for follow-up. She has background history of fibromuscular dysplasia and coronary artery dissection involving the ramus intermedius. She has non anginal chest pain currently. Blood pressure is elevated. Continue amlodipine 10 mg daily. Increasing her Toprol-XL 200 mg twice a day. She will see us back in 9 days for blood pressure check. She will bring her own blood pressure cuff also and we will compare blood pressure readings to make sure we contrast her home blood pressure readings or not. If the blood pressure is difficult to control than ibuprofen has to be cut back and she should be given alternative medication. She also has background of fibromuscular dysplasia and if we started noticing difficult to control blood pressure then she will need renal ultrasound to reassess the renal arteries. I do not think she needs any workup right now though. She will see us back in 10 days for blood pressure check with RN and 2 months for routine follow-up. Thank you for allowing me to participate in the care of your patient. Please feel free to contact me if you have any questions. Medications: New metoprolol succinate ER (Toprol XL) 100 mg PO BID 100 tabs 3RF Discontinued metoprolol succinate ER Discontinued Reason: None 50 mg PO BID 90 days 180 tabs 3RF R00.2 - Palpitations Coding Level of Care Code Est Pt Level 4 (33624) Diagnoses Hypertension I10 Fibromuscular dysplasia I77.3 Chest pain R07.9
[2022-12-05 15:15] VITALS: BP 142/94; PULSE 78; BMI 22.8
== END 2022-12-05 16:00 | disposition home or self-care (01) ==
PROVIDERS: Visit Provider Internal Medicine Cardiovascular Disease
DX: I10 Essential (primary) hypertension (principal); I77.3 Arterial fibromuscular dysplasia; R07.9 Chest pain, unspecified
CPT/HCPCS: 99214

== ENCOUNTER → 2022-12-05 15:09 | Outpatient (BNVA) | payer MEDICAID, SELFPAY | PROVIDERS: Visit Provider Internal Medicine Cardiovascular Disease | DX: I10 Essential (primary) hypertension (principal); I77.3 Arterial fibromuscular dysplasia; R07.9 Chest pain, unspecified | CPT/HCPCS: 99212 ==

== ENCOUNTER → 2022-12-14 15:03 | Outpatient (BNVA) | payer MEDICAID, SELFPAY | PROVIDERS: PCP General Practice; Referring Provider General Practice; Visit Provider Internal Medicine Cardiovascular Disease ==

== ENCOUNTER → 2023-01-09 13:30 | Outpatient (BNV) | payer MEDICAID, SELFPAY | PROVIDERS: Visit Provider Radiology Diagnostic Radiology | DX: D05.11 Intraductal carcinoma in situ of right breast (principal) | CPT/HCPCS: 77062; 77066 ==

== ENCOUNTER 2023-01-09 13:32 | Outpatient (REF) | payer MEDICAID, SELFPAY ==
--- NOTE | ~2023-01-09 | MM_ITS ---
EXAMINATION: MM DIAGNOSTIC DIGITAL BREAST TOMOSYNTHESIS, BILATERAL CLINICAL INFORMATION: 1 year follow-up (third) for DCIS resection right breast. Patient also has history of recent MRI biopsy left breast upper inner quadrant yielding-PASH. COMPARISON: Mammography: Breast MRI dated 10/24/2021, MR guided breast biopsy 10/16/2021 with post biopsy left diagnostic mammography, bilateral mammography 09/12/2021, and mammograms dating back to 09/01/2019. Patient also has history of numerous left breast cysts and aspirations. TECHNIQUE: Digital breast tomosynthesis is performed in both the craniocaudal and mediolateral oblique views along with computer-aided detection (CAD). Synthesized 2D images are generated from the tomosynthesis. In addition, spot magnification right CC and ML views were performed of the excisional site. FINDINGS: The breasts are heterogeneously dense, which may obscure small masses (ACR BI-RADS breast composition Category c). Spot magnification views demonstrate no recurrent suspicious calcifications, and stable parenchymal scarring laterally. Regular tomographic views demonstrate a stable right breast parenchymal pattern compared with numerous prior exams. There is a post biopsy clip marker in the left breast slightly upper, slightly medial middle one third from prior benign biopsy yielding PASH. The left breast parenchymal pattern has changed, mostly secondary to numerous simple cysts previously present which are no longer visualized. There are are 2 stable circumscribed masses in the central posterior left breast, most likely due to residual cysts. There are also small unchanged benign calcifications in this region. MM/MM tomosynthesis diagnostic BI IMPRESSION: There are no findings suspicious for recurrent or new malignancy in either breast. There are stable benign findings in both breasts. Number of cysts appears to have markedly decreased in the left breast. Recommend the patient return to routine annual screening mammography as this completes 3 year postop follow-up for the right breast. ASSESSMENT: BI-RADS BI-RADS 2 - Benign Findings RECOMMENDATION: 1 year F/U Results were provided to the patient at time of visit by the technologist. This patient's information was entered into a reminder system with a target due date for their next mammogram.
== END 2023-01-09 13:33 | disposition home or self-care (01) ==
LOC: HO.MAMMO 13:32
PROVIDERS: Visit Provider General Practice
DX: Z85.3 Personal history of malignant neoplasm of breast (principal)
CPT/HCPCS: 77062; 77066

== ENCOUNTER 2023-01-17 13:46 | Outpatient (AMB) | payer MEDICAID, SELFPAY ==
[2023-01-17 13:55] VITALS: BP 142/63; PULSE 86; BMI 23.2
--- NOTE | 2023-01-17 13:55 | MHC.OFFVIS ---
Intake Vital Signs 01/17/23 13:55 Height 5 ft 2 in Weight 127 lb BMI 23.2 BP 142/63 H Blood Pressure Location Rt brachial Position Sitting Pulse 86 Intake Visit Reasons: 6 mth follow up breast exam Intake Note: Patient here for 6m breast. exam. C/o bump along incision on Lt breast. Reports no changes with burning sensation on Lt breast still persistent since last visit. 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: No Accompanied by: Self / Same As Patient Allergies Gadolinium-Containing Contrast Medi Allergy (Mild, Verified 01/17/23 13:57) Rash Iodinated Contrast Media [IV Contrast Dye] Allergy (Verified 01/17/23 13:57) Rash Medication List - Last Reconciled 01/17/23 by Tony Osuna MD amlodipine 10 mg PO DAILY aspirin 81 mg PO DAILY atorvastatin 40 mg PO BEDTIME bupropion HCl 150 mg PO DAILY cholecalciferol (vitamin D3) 50 mcg PO DAILY gabapentin 100 mg PO DAILY PRN hydroxyzine pamoate 25 mg PO BEDTIME PRN ibuprofen 800 mg PO BID levothyroxine 125 mcg PO DAILY metoprolol succinate ER (Toprol XL) 100 mg PO BID mirtazapine 30 mg PO DAILY topiramate 100 mg PO BEDTIME valsartan 80 mg PO QAM venlafaxine ER 75 mg PO BEDTIME HPI HPI Comments History of Present Illness Details 47-year-old female patient, former patient of Dr. Gamez with a prior history of ductal carcinoma in-situ returning for a routine follow-up breast examination. Underwent right breast lumpectomy on 09/23/2019 followed by wider excision on 10/08/2019. 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 She underwent radiation therapy at [facility] which was completed on 12/09/2019. She developed lymphedema of the right breast and subsequently underwent physical therapy for approximately 3 weeks. Genetic testing revealed no deleterious mutations although she did have a variant of unknown significance. MRI of 10/24/2021 revealed indeterminate linear enhancement of the left breast, 10:00 o'clock and MR guided biopsy was recommended. 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 On 10/01/2022 she underwent an excision of 2 left breast cysts. Pathology revealed no atypia or malignancy. She reports some pain in the right breast at the lower outer quadrant and also pain and itchiness from the radiation therapy tattoo in the lateral right chest. Her most recent mammogram from February revealed increased size of the breast cyst on the left side and no mammographic evidence of malignancy (BI-RADS 2). Routine annual screening mammography was recommended in 1 year. [facility] Medical History History of COVID-19 Sleep apnea History of radiation therapy Stroke Aneurysm NSTEMI (non-ST elevated myocardial infarction) Gout Hypertension Hypothyroidism Ductal carcinoma in situ (DCIS) of right breast Surgical History History of removal of cyst History of breast lump/mass excision (07/09/22) Status post cardiac catheterization History of right breast biopsy (09/08/19) History of endometrial ablation (2010) History of bilateral tubal ligation (2003) History of lumpectomy of right breast (10/07/19) Family History Daughter Thyroid cancer Paternal Grandmother Breast cancer Thyroid cancer Diabetes Sister Diabetes HTN (hypertension) Sister HTN (hypertension) Sister HTN (hypertension) Sister HTN (hypertension) Sister HTN (hypertension) Father Brain tumor Mother Heart attack Social History Household Members: Children Household Members Other:: daughter Housing: Apartment Are you a primary mall plant caretaker to a significant other at home: No Do you presently have visiting nurse or other home services: No Alcohol intake: former Year quit: 2020 Patient Tobacco Use Status: Never used Tobacco Tobacco use type: Cigarette Years Smoked: 10 +/- service: No Current occupational status: employed Current occupation: rt handed Review of Systems Const All systems reviewed & are unremarkable except as noted in HPI and below Physical Exam Vital Signs: Last Vital Signs Pulse 86 01/17/23 13:55 BP 142/63 H 01/17/23 13:55 BMI result Body Mass Index 23.2 Const General: no acute distress and well developed Nutritional Appearance: well nourished Orientation/consciousness: patient oriented x3 Limitations: no limitations Chest Other: Right breast with a well-healed incision in the upper outer quadrant radiating from the nipple. There is tenderness throughout the outer quadrants of the right breast. No palpable masses appreciated. Tattoo located in the lateral chest reveals no palpable mass or surrounding skin change. No other breast skin change nipple discharge or palpable mass is appreciated. No enlarged lymph nodes are appreciated. Left breast with a well-healed incision in a circumareolar location in the inferior portion. Diffuse areas of mild tenderness are noted but no suspicious palpable mass, skin change, nipple discharge or enlarged lymph nodes are appreciated. Skin Other: Warm, dry, no rash Neuro General: patient oriented x3 Extrem Other: No upper extremity lymphedema Assessment & Plan Assessment & Plan (1) Ductal carcinoma in situ (DCIS) of right breast: Code(s): D05.11 - Intraductal carcinoma in situ of right breast Plan 47-year-old female patient returning for a routine follow-up breast examination. 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 She subsequent underwent radiation therapy at [facility]. She had several cystic lesions removed from the left breast which she tolerated well. Her most recent mammogram dated 01/09/2023 revealed no mammographic evidence of malignancy. The prior cyst appear to be decreasing in size by ultrasound. Mammogram and ultrasound were felt to be benign (BI-RADS 2). Follow-up screening mammogram recommended in 1 year. Examination today revealed no suspicious findings in either breast. There is bilateral tenderness with no corresponding palpable density. I recommended continued observation with follow-up in 6 months for routine breast examination. She is welcome to call sooner for any new concerns. Coding Level of Care Code Est Pt Level 3 (98613) Diagnoses Ductal carcinoma in situ (DCIS) of right breast D05.11
== END 2023-01-17 14:09 | disposition home or self-care (01) ==
PROVIDERS: PCP General Practice; Visit Provider Surgery
DX: D05.11 Intraductal carcinoma in situ of right breast (principal)
CPT/HCPCS: 99213

== ENCOUNTER → 2023-01-17 13:46 | Outpatient (BNVA) | payer MEDICAID, SELFPAY | PROVIDERS: Visit Provider Surgery | DX: D05.11 Intraductal carcinoma in situ of right breast (principal) | CPT/HCPCS: 99212 ==

== ENCOUNTER 2023-01-30 14:48 | Outpatient (AMB) | payer MEDICAID, SELFPAY ==
[2023-01-30 14:50] VITALS: BP 144/86; PULSE 72; BMI 23.0
--- NOTE | 2023-01-30 14:50 | A.OFFVIS_ITS ---
Intake Vital Signs 01/30/23 14:50 Height 5 ft 2 in Weight 125 lb 10.616 oz BMI 23.0 BP 144/86 H Blood Pressure Location Lt brachial Position Sitting Pulse 72 Intake Visit Reasons: 2 mth fu Intake Note: 2 month follow-up last week bp was high at work felt sweaty and dizzy felt better after eating Collection Manager Required: No Allergies Gadolinium-Containing Contrast Medi Allergy (Mild, Verified 01/17/23 13:57) Rash Iodinated Contrast Media [IV Contrast Dye] Allergy (Verified 01/17/23 13:57) Rash Medication List - Last Reconciled 01/30/23 by Jose A Gaona MD amlodipine 10 mg PO DAILY aspirin 81 mg PO DAILY atorvastatin 40 mg PO BEDTIME bupropion HCl 150 mg PO DAILY cholecalciferol (vitamin D3) 50 mcg PO DAILY gabapentin 100 mg PO DAILY PRN hydroxyzine pamoate 25 mg PO BEDTIME PRN ibuprofen 800 mg PO BID levothyroxine 125 mcg PO DAILY metoprolol succinate ER (Toprol XL) 100 mg PO BID mirtazapine 30 mg PO DAILY topiramate 100 mg PO BEDTIME valsartan 80 mg PO QAM HPI HPI Comments History of Present Illness Details Very pleasant 47-year-old female here for follow-up. She was seen in December 2020 when she presented to [facility] with chest pain and ruled in for NSTEMI. 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 She was conservatively managed. She also had cerebral aneurysm which was treated with pipeline Shield stent. She had minor stroke after that. On last visit she was complaining of palpitations. She was referred for 3 Holter monitor. This showed sinus rhythm with average heart rate 2 beats per minute, no significant pauses or bradycardia noted. 159 PVCs were noted. 04/25/22: She is here for follow-up. Tanner graham is saying her blood pressure was fluctuating up and down had her amlodipine was increased to 10 mg daily. Her blood pressure in the office currently stable. She is denying any chest discomfort or shortness of breath currently. She is complaining of palpitations. 12/05/22: She is here for follow-up. Tanner graham was seen in August by Teresa. She is complaining her blood pressure has been rising and at times she has noticed her blood pressure to be as high as 180s. She checks with her own automated blood pressure cuff at home. She has been taking amlodipine 10 mg and metoprolol succinate 50 mg twice a day. She also gets some sharp left-sided chest pains. She is describing stabbing sensation which also happens when she has elevated blood pressure. She has background of fibromuscular dysplasia. 01/30/23: Returns for follow-up. On las t visit we added valsartan 80 mg once a day but it appears her pharmacy did not added to her medication box. She is only taking metoprolol and amlodipine currently. Her blood pressure in the office is 144/86. At home she had blood pressures as high as 180s. She said she had some visual changes and was not feeling well and at that time her blood pressure was checked by a nurse and blood pressure was 180s systolic. This improved with rest. Denying any other symptoms. [facility] Medical History History of COVID-19 Sleep apnea History of radiation therapy Stroke Aneurysm NSTEMI (non-ST elevated myocardial infarction) Gout Hypertension Hypothyroidism Ductal carcinoma in situ (DCIS) of right breast Surgical History History of removal of cyst History of breast lump/mass excision (07/09/22) Status post cardiac catheterization History of right breast biopsy (09/08/19) History of endometrial ablation (2010) History of bilateral tubal ligation (2003) History of lumpectomy of right breast (10/07/19) Family History Daughter Thyroid cancer Paternal Grandmother Breast cancer Thyroid cancer Diabetes Sister Diabetes HTN (hypertension) Sister HTN (hypertension) Sister HTN (hypertension) Sister HTN (hypertension) Sister HTN (hypertension) Father Brain tumor Mother Heart attack Social History Household Members: Children Household Members Other:: daughter Housing: Apartment Are you a primary complex care nurse practitioner to a significant other at home: No Do you presently have visiting nurse or other home services: No Alcohol intake: former Year quit: 2020 Patient Tobacco Use Status: Never used Tobacco Tobacco use type: Cigarette Years Smoked: 10 +/- service: No Current occupational status: employed Current occupation: rt handed Review of Systems Const Denies chills, Denies fatigue, Denies fever(s), Denies frequent falls, Denies weakness, Denies weight gain and Denies weight loss ENT Denies dizziness Card Denies chest pain, Denies leg edema, Denies lightheadedness, Denies palpitations, Denies dyspnea, Denies dyspnea on exertion, Denies orthopnea and Denies other (loss of consciousness) Resp Denies cough, Denies dyspnea and Denies dyspnea on exertion GI Denies hematochezia and Denies change in stool character Musc Denies abnormal gait, Denies muscle weakness, Denies numbness, Denies radiating pain into limb and Denies tingling Neuro Denies abnormal gait, Denies dizziness, Denies frequent falls, Denies numbness, Denies tingling and Denies weakness Endo Denies fatigue and Denies palpitations Physical Exam Vital Signs: Last Vital Signs Pulse 72 01/30/23 14:50 BP 144/86 H 01/30/23 14:50 BMI result Body Mass Index 23.0 GENERAL APPEARANCE: in no acute distress, pleasant. NECK: no carotid bruit, no jugular venous distention. SKIN: no suspicious lesions, warm and dry. HEART: no murmurs, regular rate and rhythm. LUNGS: clear to auscultation bilaterally. ABDOMEN: soft, nontender. EXTREMITIES: no edema. PERIPHERAL PULSES: equal. NEUROLOGIC: No gross deficits, AAO X 3 Assessment & Plan Assessment & Plan (1) Coronary artery dissection: Code(s): I25.42 - Coronary artery dissection (2) Fibromuscular dysplasia: Code(s): I77.3 - Arterial fibromuscular dysplasia (3) Hypertension: Code(s): I10 - Essential (primary) hypertension Plan Pleasant 47 year female who is here for follow-up. She has background history of fibromuscular dysplasia and coronary artery dissection. She also had cerebral aneurysm in the past. Blood pressure is elevated. We added valsartan 80 mg before but it appears she is currently not getting it her pillbox. I am sending a new script to her pharmacy and will see if this can be added to her pillbox. While on this medication will bring her back in couple months to check her blood pressure. I think there is room on valsartan to titrate if her blood pressure is not improving. She will see us back in 2 months. Thank you for allowing me to participate in the care of your patient. Please feel free to contact me if you have any questions. Medications: Changed From valsartan 80 mg PO QAM I10 - Essential (primary) hypertension To valsartan Please add to her pill box 80 mg PO QAM 90 tabs 3RF blood pressure I10 - Essential (primary) hypertension Coding Level of Care Code Est Pt Level 4 (94369) Diagnoses Coronary artery dissection I25.42 Fibromuscular dysplasia I77.3 Hypertension I10
== END 2023-01-30 15:13 | disposition home or self-care (01) ==
PROVIDERS: PCP General Practice; Visit Provider Internal Medicine Cardiovascular Disease
DX: I25.42 Coronary artery dissection (principal); I77.3 Arterial fibromuscular dysplasia; I10 Essential (primary) hypertension
CPT/HCPCS: 99214

== ENCOUNTER → 2023-01-30 14:48 | Outpatient (BNVA) | payer MEDICAID, SELFPAY | PROVIDERS: PCP General Practice; Visit Provider Internal Medicine Cardiovascular Disease | DX: I25.42 Coronary artery dissection (principal); I77.3 Arterial fibromuscular dysplasia; I10 Essential (primary) hypertension | CPT/HCPCS: 99212 ==

== ENCOUNTER 2023-04-08 14:44 | Outpatient (REF) | payer MEDICAID, SELFPAY ==
[2023-04-08 16:37] LABS: Alanine Aminotransferase 11 U/L (0-31); Albumin Level 4.2 g/dL (3.5-5.0); Alkaline Phosphatase 67 U/L (39-117); Anion Gap 10 (12-20); Aspartate Amino Transferase 18 U/L (5-31); Bilirubin Total 0.3 mg/dL (0.0-1.0); Blood Urea Nitrogen 6 mg/dL (9-16); Calcium 9.6 mg/dL (8.4-10.2); Carbon Dioxide 27 mmol/L (22-29); Chloride 108 mmol/L (96-108); Estimated Glomerular Filt Rate > 60; Glucose Random 105 mg/dL (60-115); Potassium 4.1 mmol/L (3.3-5.1); Sodium 141 mmol/L (135-145); Total Protein 7.2 g/dL (6.5-8.0)
[2023-04-09 02:05] LABS: CT PCR NOT DETECTED (Not Detect.); NG PCR NOT DETECTED (Not Detect.)
[2023-04-09 07:44] LABS: Syphilis Screen Nonreactive (Nonreactive)
[2023-04-09 07:56] LABS: HIV AB/AG Nonreactive (Nonreactive); HIV Num 1 0.05 S/CO (0.00-0.99); ~Hepatitis C Antibody Nonreactive (Nonreactive)
== END 2023-04-08 14:45 | disposition home or self-care (01) ==
LOC: HO.HHCL 14:44
PROVIDERS: Visit Provider General Practice
DX: Z11.3 Encounter for screening for infections with a predominantly sexual mode of transmission (principal)
CPT/HCPCS: 0353U; 36415; 80053; 86780; 86803; 87389

== ENCOUNTER 2023-04-11 13:58 | Outpatient (AMB) | payer MEDICAID, SELFPAY ==
--- NOTE | 2023-04-11 13:59 | MHC.OFFVIS ---
Intake Vital Signs 04/11/23 14:06 Height 5 ft 2 in Weight 125 lb BMI 22.9 BP 153/71 H Blood Pressure Location Lt brachial Position Sitting Pulse 71 Intake Visit Reasons: 6 mth breast exam Intake Note: Patient is seen in office for 6 month follow up visit, breast exam. Pt c/o: admits to left breast pain under the nipple, also feels a lump in the same spot, lumps moves, burning pain on and off mm:01/09/23 Nail Kegger Required: No Insurance Licensing Supervisor: Insurance Licensing Supervisor Present Accompanied by: Self / Same As Patient Allergies Gadolinium-Containing Contrast Medi Allergy (Mild, Verified 01/17/23 13:57) Rash Iodinated Contrast Media [IV Contrast Dye] Allergy (Verified 01/17/23 13:57) Rash Medication List - Last Reconciled 04/11/23 by Tony Osuna MD amlodipine 10 mg PO DAILY aspirin 81 mg PO DAILY atorvastatin 40 mg PO BEDTIME bupropion HCl 150 mg PO DAILY cholecalciferol (vitamin D3) 2,000 mcg PO DAILY gabapentin 100 mg PO DAILY PRN hydroxyzine pamoate 25 mg PO BEDTIME PRN ibuprofen 800 mg PO BID levothyroxine 125 mcg PO DAILY metoprolol succinate ER (Toprol XL) 100 mg PO BID mirtazapine 30 mg PO DAILY topiramate 100 mg PO BEDTIME valsartan 80 mg PO QAM HPI HPI Comments History of Present Illness Details 48-year-old female patient, former patient of Dr. Gamez with a prior history of ductal carcinoma in-situ returning for a routine follow-up breast examination. Underwent right breast lumpectomy on 09/23/2019 followed by wider excision on 10/08/2019. Pathology revealed DCIS, grade 3, ER/[place] negative. She underwent radiation therapy at [facility] which was completed on 12/09/2019. She developed lymphedema of the right breast and subsequently underwent physical therapy for approximately 3 weeks. Genetic testing revealed no deleterious mutations although she did have a variant of unknown significance. MRI of 10/24/2021 revealed indeterminate linear enhancement of the left breast, 10:00 o'clock and MR guided biopsy was recommended. 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 On 10/01/2022 she underwent an excision of 2 left breast cysts. Pathology revealed no atypia or malignancy. She reports some pain in the right breast at the lower outer quadrant and also pain and itchiness from the radiation therapy tattoo in the lateral right chest. Her most recent mammogram from 03/11/2023 revealed increased size of the breast cyst on the left side and no mammographic evidence of malignancy (BI-RADS 2). Routine annual screening mammography was recommended in 1 year. She feels well but does have some tenderness in both breasts especially in the upper outer quadrant of the right breast. [facility] Medical History History of COVID-19 Sleep apnea History of radiation therapy Stroke Aneurysm NSTEMI (non-ST elevated myocardial infarction) Gout Hypertension Hypothyroidism Ductal carcinoma in situ (DCIS) of right breast Surgical History History of removal of cyst History of breast lump/mass excision (07/09/22) Status post cardiac catheterization History of right breast biopsy (09/08/19) History of endometrial ablation (2010) History of bilateral tubal ligation (2003) History of lumpectomy of right breast (10/07/19) Family History Daughter Thyroid cancer Paternal Grandmother Breast cancer Thyroid cancer Diabetes Sister Diabetes HTN (hypertension) Sister HTN (hypertension) Sister HTN (hypertension) Sister HTN (hypertension) Sister HTN (hypertension) Father Brain tumor Mother Heart attack Social History Household Members: Children Household Members Other:: daughter Housing: Apartment Are you a primary resident care coordinator to a significant other at home: No Do you presently have visiting nurse or other home services: No Alcohol intake: former Year quit: 2020 Patient Tobacco Use Status: Never used Tobacco Tobacco use type: Cigarette Years Smoked: 10 +/- service: No Current occupational status: employed Current occupation: rt handed Review of Systems Const All systems reviewed & are unremarkable except as noted in HPI and below Physical Exam Vital Signs: Last Vital Signs Pulse 71 04/11/23 14:06 BP 153/71 H 04/11/23 14:06 BMI result Body Mass Index 22.9 Const General: no acute distress and well developed Nutritional Appearance: well nourished Orientation/consciousness: patient oriented x3 Limitations: no limitations Chest Other: Right breast with a well-healed incision in the upper outer quadrant radiating from the nipple. There is tenderness throughout the outer quadrants of the right breast. No palpable masses appreciated. No other breast skin change nipple discharge or palpable mass is appreciated. No enlarged lymph nodes are appreciated. Left breast with a well-healed incision in a circumareolar location. Diffuse areas of mild tenderness are noted but no suspicious palpable mass, skin change, nipple discharge or enlarged lymph nodes are appreciated. Chest/axillae images: 1. 2. Skin Other: Warm, dry, no rash Neuro General: patient oriented x3 Extrem Other: No upper extremity lymphedema Assessment & Plan Assessment & Plan (1) Ductal carcinoma in situ (DCIS) of right breast: Code(s): D05.11 - Intraductal carcinoma in situ of right breast Plan 48-year-old female patient returning for a routine follow-up breast examination. 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 Pathology revealed DCIS, grade 3, ER/[place] negative. She subsequently underwent radiation therapy at [facility]. She had several cystic lesions removed from the left breast which she tolerated well. Her most recent mammogram dated 01/09/2023 revealed no mammographic evidence of malignancy. The prior cyst appear to be decreasing in size by ultrasound. Mammogram and ultrasound were felt to be benign (BI-RADS 2). Follow-up screening mammogram is recommended in 1 year. Examination today revealed no suspicious findings in either breast. There is bilateral tenderness with no corresponding palpable density. I recommended continued observation with follow-up in 6 months for routine breast examination. She is welcome to call sooner for any new concerns. Coding Level of Care Code Est Pt Level 3 (09046) Diagnoses Ductal carcinoma in situ (DCIS) of right breast D05.11
[2023-04-11 14:06] VITALS: BP 153/71; PULSE 71; BMI 22.9
== END 2023-04-11 14:16 | disposition home or self-care (01) ==
PROVIDERS: PCP General Practice; Visit Provider Surgery
DX: D05.11 Intraductal carcinoma in situ of right breast (principal)
CPT/HCPCS: 99213

== ENCOUNTER → 2023-04-11 13:58 | Outpatient (BNVA) | payer MEDICAID, SELFPAY | PROVIDERS: PCP General Practice; Visit Provider Surgery | DX: D05.11 Intraductal carcinoma in situ of right breast (principal); I89.0 Lymphedema, not elsewhere classified; N64.89 Other specified disorders of breast; N60.42 Mammary duct ectasia of left breast; N64.4 Mastodynia; Z17.1 Estrogen receptor negative status [ER-]; Z92.3 Personal history of irradiation | CPT/HCPCS: 99212 ==

== ENCOUNTER 2023-04-15 14:03 | Outpatient (AMB) | payer MEDICAID, SELFPAY ==
[2023-04-15 14:05] VITALS: BP 130/60; PULSE 84; BMI 22.9
--- NOTE | 2023-04-15 14:05 | A.OFFVIS_ITS ---
Intake Vital Signs 04/15/23 14:05 Height 5 ft 2 in Weight 125 lb 3.561 oz BMI 22.9 BP 130/60 Blood Pressure Location Lt brachial Position Sitting Pulse 84 Pulse Source Pulse Oximeter Intake Visit Reasons: 2 mth f/up htn per km Intake Note: 2 mth f/u patient had palpitations this morning but she fine now. Compliance Quality Performance Analyst Required: No Accompanied by: Self / Same As Patient Allergies Gadolinium-Containing Contrast Medi Allergy (Mild, Verified 04/15/23 14:09) Rash Iodinated Contrast Media [IV Contrast Dye] Allergy (Verified 04/15/23 14:09) Rash Medication List - Last Reconciled 04/15/23 by Jose A Gaona MD amlodipine 10 mg PO DAILY aspirin 81 mg PO DAILY atorvastatin 40 mg PO BEDTIME bupropion HCl 150 mg PO DAILY gabapentin 100 mg PO DAILY PRN hydroxyzine pamoate 25 mg PO BEDTIME PRN ibuprofen 800 mg PO BID levothyroxine 125 mcg PO DAILY metoprolol succinate ER (Toprol XL) 100 mg PO BID mirtazapine 30 mg PO DAILY topiramate 100 mg PO BEDTIME valsartan 80 mg PO QAM HPI HPI Comments History of Present Illness Details Very pleasant 48-year-old female here for follow-up. She was seen in December 2020 when she presented to [facility] with chest pain and ruled in for NSTEMI. 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 She was conservatively managed. She also had cerebral aneurysm which was treated with pipeline Shield stent. She had minor stroke after that. On last visit she was complaining of palpitations. She was referred for 3 Holter monitor. This showed sinus rhythm with average heart rate 2 beats per minute, no significant pauses or bradycardia noted. 159 PVCs were noted. 04/25/22: She is here for follow-up. Tanner graham is saying her blood pressure was fluctuating up and down had her amlodipine was increased to 10 mg daily. Her blood pressure in the office currently stable. She is denying any chest discomfort or shortness of breath currently. She is complaining of palpitations. 12/05/22: She is here for follow-up. Tanner graham was seen in August by Teresa. She is complaining her blood pressure has been rising and at times she has noticed her blood pressure to be as high as 180s. She checks with her own automated blood pressure cuff at home. She has been taking amlodipine 10 mg and metoprolol succinate 50 mg twice a day. She also gets some sharp left-sided chest pains. She is describing stabbing sensation which also happens when she has elevated blood pressure. She has background of fibromuscular dysplasia. 01/30/23: Returns for follow-up. On las t visit we added valsartan 80 mg once a day but it appears her pharmacy did not added to her medication box. She is only taking metoprolol and amlodipine currently. Her blood pressure in the office is 144/86. At home she had blood pressures as high as 180s. She said she had some visual changes and was not feeling well and at that time her blood pressure was checked by a nurse and blood pressure was 180s systolic. This improved with rest. Denying any other symptoms. 04/15/23: She is here for f/u. She has be en feeling fine. No chest pain or shortness of breath. Occasionally when she is stressed she gets palpitations lasting for few seconds. Today after checking her blood pressure the RN told her that her blood pressure was good and even that cause some palpitations. She is saying that she gets 7 she is excited or under stress. No prolonged episodes. [facility] Medical History History of COVID-19 Sleep apnea History of radiation therapy Stroke Aneurysm NSTEMI (non-ST elevated myocardial infarction) Gout Hypertension Hypothyroidism Ductal carcinoma in situ (DCIS) of right breast Surgical History History of removal of cyst History of breast lump/mass excision (07/09/22) Status post cardiac catheterization History of right breast biopsy (09/08/19) History of endometrial ablation (2010) History of bilateral tubal ligation (2003) History of lumpectomy of right breast (10/07/19) Family History Daughter Thyroid cancer Paternal Grandmother Breast cancer Thyroid cancer Diabetes Sister Diabetes HTN (hypertension) Sister HTN (hypertension) Sister HTN (hypertension) Sister HTN (hypertension) Sister HTN (hypertension) Father Brain tumor Mother Heart attack Social History Household Members: Children Household Members Other:: daughter Housing: Apartment Are you a primary home care rn to a significant other at home: No Do you presently have visiting nurse or other home services: No Alcohol intake: former Year quit: 2020 Patient Tobacco Use Status: Never used Tobacco Tobacco use type: Cigarette Years Smoked: 10 +/- service: No Current occupational status: employed Current occupation: rt handed Review of Systems Const Reports chills, Reports fatigue, Reports fever(s), Reports frequent falls, Reports weakness, Reports weight gain and Reports weight loss ENT Reports dizziness Card Reports chest pain, Reports leg edema, Reports lightheadedness, Reports palpitations, Reports dyspnea and Reports dyspnea on exertion Resp Reports cough, Reports dyspnea and Reports dyspnea on exertion GI Reports hematochezia Musc Reports abnormal gait, Reports muscle weakness, Reports numbness, Reports radiating pain into limb and Reports tingling Neuro Reports abnormal gait, Reports dizziness, Reports frequent falls, Reports numbness, Reports tingling and Reports weakness Endo Reports fatigue and Reports palpitations Physical Exam Vital Signs: Last Vital Signs Pulse 84 04/15/23 14:05 BP 130/60 04/15/23 14:05 BMI result Body Mass Index 22.9 GENERAL APPEARANCE: in no acute distress, pleasant. NECK: no carotid bruit, no jugular venous distention. SKIN: no suspicious lesions, warm and dry. HEART: no murmurs, regular rate and rhythm. LUNGS: clear to auscultation bilaterally. ABDOMEN: soft, nontender. EXTREMITIES: no edema. PERIPHERAL PULSES: equal. NEUROLOGIC: No gross deficits, AAO X 3 Assessment & Plan Assessment & Plan (1) Hypertension: Code(s): I10 - Essential (primary) hypertension (2) Palpitations: Code(s): R00.2 - Palpitations Plan Pleasant year old female who is here for follow-up. She has history of fibromuscular dysplasia and previous coronary artery dissection. She has been stable. Blood pressure control is good. She will continue same medications at this stage. She is getting some palpitations off and on which last for few seconds. I have advised her that if she has any prolonged episodes then she should reach out to us and in that case we will do Holter monitoring or cardiac event monitor. Thank you for allowing me to participate in the care of your patient. Please feel free to contact me if you have any questions. Coding Level of Care Code Est Pt Level 3 (56257) Diagnoses Hypertension I10 Palpitations R00.2
== END 2023-04-15 14:31 | disposition home or self-care (01) ==
PROVIDERS: PCP General Practice; Visit Provider Internal Medicine Cardiovascular Disease
DX: I10 Essential (primary) hypertension (principal); R00.2 Palpitations
CPT/HCPCS: 99213

== ENCOUNTER → 2023-04-15 14:03 | Outpatient (BNVA) | payer MEDICAID, SELFPAY | PROVIDERS: PCP General Practice; Visit Provider Internal Medicine Cardiovascular Disease | DX: I10 Essential (primary) hypertension (principal); R00.2 Palpitations | CPT/HCPCS: 99212 ==

== ENCOUNTER 2023-05-10 17:25 | Outpatient (REF) | payer MEDICAID, SELFPAY ==
[2023-05-17 03:08] LABS: HPV mRNA E6/E7 rflx Not Detected (Not Detected)
== END 2023-05-10 17:26 | disposition home or self-care (01) ==
LOC: HO.HHCLNP 17:25
PROVIDERS: Visit Provider General Practice
DX: Z12.4 Encounter for screening for malignant neoplasm of cervix (principal); Z11.51 Encounter for screening for human papillomavirus (HPV); Z11.3 Encounter for screening for infections with a predominantly sexual mode of transmission
CPT/HCPCS: 36415; 81513; 87624; 88142

== ENCOUNTER 2023-05-20 12:54 | Outpatient (REF) | payer MEDICAID, SELFPAY | END 2023-05-20 12:55 | disposition home or self-care (01) | LOC: HO.HMGCX 12:54 | PROVIDERS: PCP General Practice; Visit Provider General Practice | DX: R22.42 Localized swelling, mass and lump, left lower limb (principal) | CPT/HCPCS: 93971 ==

== ENCOUNTER 2023-05-22 15:52 | Emergency (ER) | payer MEDICAID, SELFPAY ==
[2023-05-22] VITALS (9 sets, daily range): BP systolic 109–138; BP diastolic 47–67; PULSE 65–79; RESP 14–20; TEMP 36.9–37.1; O2SAT 95–98; BMI 22.6
--- NOTE | 2023-05-22 | ECG_ITS ---
Test Reason : CP Blood Pressure : / mmHG Vent. Rate : 076 BPM Atrial Rate : 076 BPM P-R Int : 136 ms QRS Dur : 070 ms QT Int : 374 ms P-R-T Axes : 027 035 018 degrees QTc Int : 420 ms Normal sinus rhythm Septal infarct (cited on or before 21-SEP-2021) Abnormal ECG When compared with ECG of 22-DEC-2021 13:18, No significant change was found Referred By: Donna Moreland Electronically Signed By:KIM RODRIGUEZ MD
--- NOTE | ~2023-05-22 | XR_ITS ---
EXAMINATION: XR CHEST CLINICAL INFORMATION: Cough and chest pain. COMPARISON: None available. TECHNIQUE: 2 views of the chest were obtained. FINDINGS: No significant abnormality is noted involving the heart, lungs, mediastinum, bony thorax or soft tissues. XR/XR chest 2V IMPRESSION: Unremarkable chest examination.
--- NOTE | ~2023-05-22 | US_ITS ---
EXAMINATION: US ABDOMEN LIMITED CLINICAL INFORMATION: Epigastric pain.. COMPARISON: None available. TECHNIQUE: Real-time imaging of the right upper quadrant abdominal viscera. FINDINGS: PANCREAS: Normal. LIVER: Normal. The liver is normal in size. The liver contour is normal. Parenchymal echogenicity is normal. No focal hepatic lesion. There is no intrahepatic biliary duct dilatation seen. GALLBLADDER: Normal. The gallbladder is physiologically distended without evidence of stones, sludge, polyps, wall thickening or pericholecystic fluid. COMMON BILE DUCT: Normal in caliber measuring 0.4 cm in diameter. RIGHT KIDNEY: Normal. No hydronephrosis. No renal calculi or focal parenchymal lesions. The kidney measures 12.0 cm in maximum dimension. FREE FLUID: None. US/US abdomen limited IMPRESSION: Unremarkable examination.
[2023-05-22 16:47] LABS: MANUAL DIFF FLAG NO
[2023-05-22 16:48] LABS: Basophils Percent Auto 0.5 % (0-2); Hematocrit 41.6 % (37.0-47.0); Hemoglobin 14.3 g/dl (12.0-16.0); Imm Gran Abs Auto 0.01 X10*3/uL (0.00-0.03); Imm Gran Pct Auto 0.3 % (0.0-0.4); Lymphocytes Absolute Auto 1.2 X10*3/uL (1.2-4.9); Lymphocytes Percent Auto 30.5 % (20-40); Mean Corpuscular HGB Conc 34.4 g/dl (31.0-35.0); Mean Corpuscular Hemoglobin 30.9 pg (27.0-33.0); Mean Corpuscular Volume 89.8 fL (80.0-98.0); Mean Platelet Volume 9.9 fL (9.4-12.3); Monocytes Absolute Auto 0.5 X10*3/uL (0.1-1.2); Monocytes Percent Auto 12.1 % (2-11); Neutrophils Absolute Auto 2.2 x10*3/uL (2.0-8.3); Neutrophils Percent Auto 56.6 % (45-73); Platelet Count 148 X10*3/uL (160-400); Red Blood Count 4.63 X10*6/uL (4.20-5.50); Red Cell Distribution Width 12.4 % (11.0-16.0); White Blood Count 3.9 X10*3/uL (4.8-10.8)
[2023-05-22 16:57] LABS: Prothrombin Time 12.3 SEC (11.1-13.3)
[2023-05-22 17:00] LABS: Partial Thromboplastin Time 31.5 SEC (26.0-36.4)
[2023-05-22 17:03] LABS: Alanine Aminotransferase 25 U/L (0-31); Alkaline Phosphatase 62 U/L (39-117); Anion Gap 11 (12-20); Aspartate Amino Transferase 34 U/L (5-31); Bilirubin Direct < 0.2 mg/dL (0.0-0.5); Bilirubin Total 0.2 mg/dL (0.0-1.0); Blood Urea Nitrogen 7 mg/dL (9-16); Carbon Dioxide 23 mmol/L (22-29); Chloride 108 mmol/L (96-108); Creatinine Clr Calc Pharmacy 91.7; Estimated Glomerular Filt Rate > 60; Glucose Random 97 mg/dL (60-115); Lipase 18 U/L (8-78); Potassium 3.7 mmol/L (3.3-5.1); Sodium 138 mmol/L (135-145); Total Protein 6.8 g/dL (6.5-8.0)
[2023-05-22 17:12] LABS: Troponin-I High Sensitivity < 2.7 ng/L (<3.5-17.0)
[2023-05-22 17:13] LABS: COVID-19 Test Negative (Negative); IDNOW Serial# 16C4AD1C; IDNOW Serial# 55D5AD1C; Influenza A Positive (Negative); Influenza B2 Negative (Negative)
--- NOTE | 2023-05-22 17:14 | ED_ITS ---
HPI - Chest Pain General Chief Complaint: Chest Pain Stated Complaint: chest pain,cough,dizzy Time Seen by Provider: 05/22/23 16:04 Source: patient and RN notes reviewed Mode of arrival: ambulatory Limitations: no limitations History of Present Illness HPI narrative: This is a 48-year-old female, past medical history of gout, HTN, hypothyroidism, breast cancer, NSTEMI, brain aneurysm with surgery 05/17/21, stroke with persistent left-sided deficits, presenting to the emergency department with complaints of cold-like symptoms x2 weeks. Patient states that 2 weeks ago she developed nasal congestion. She states that over this past week she developed a dry cough, chills, and body aches. She states that this morning at 8:00 a.m. she developed chest pain, which has been constant, and occasionally radiates into her left shoulder, and worsens with coughing. She states that she received for aspirin as well as 3 nitros prior to her arrival in the emergency room, which provided her with some relief. She reports at that time she developed some epigastric pain and nausea. She states that she has not been eating over the last 4 days due to lack of appetite given her symptoms. She has been taking [id number] cold medication which has provided her without relief. She states that she has been in contact with other sick individuals at work. She denies any documented fevers, headaches, dizziness, sore throat, vomiting or diarrhea. She does endorse urinary frequency. Denies any other complaints or concerns at this time. MD complaint: chest pain Timing of current episode: episodic and constant Onset: during rest Pain location: left chest Pain radiation: left shoulder Severity: similar to previous episodes Quality: tightness and aching Relieving factors: nitroglycerin Exacerbating factors: nothing Associated symptoms: nausea, palpitations, fever (subjective) and cough Treatment prior to arrival: aspirin and nitroglycerin Risk Factors Coronary artery disease risk factors: hyperlipidemia and hypertension Pulmonary embolism risk factors: malignancy Related Data On Oral Contraceptives: No Home Medications Medication Instructions Recorded Confirmed ibuprofen 800 mg tablet 800 mg PO BID 03/22/20 04/15/23 levothyroxine 125 mcg tablet 125 mcg PO DAILY 07/25/20 04/15/23 atorvastatin 40 mg tablet 40 mg PO BEDTIME 01/02/21 04/15/23 mirtazapine 30 mg tablet 30 mg PO DAILY 01/02/21 04/15/23 topiramate 100 mg tablet 100 mg PO BEDTIME 05/31/21 04/15/23 gabapentin 100 mg capsule 100 mg PO DAILY PRN Pain 07/26/21 04/15/23 bupropion HCl 150 mg tablet,12 hr 150 mg PO DAILY 04/25/22 04/15/23 sustained-release hydroxyzine pamoate 25 mg capsule 25 mg PO BEDTIME PRN insomnia 04/25/22 04/15/23 amlodipine 10 mg tablet 10 mg PO DAILY blood pressure 12/14/22 04/15/23 Previous Rx's Medication Instructions Recorded valsartan 80 mg tablet 80 mg PO QAM blood pressure #90 01/30/23 tabs aspirin 81 mg tablet,delayed 81 mg PO DAILY #90 tabs 05/22/23 release metoprolol succinate 100 mg 100 mg PO BID 90 days #180 tabs 05/22/23 tablet,extended release 24 hr Allergies Allergy/AdvReac Type Severity Reaction Status Date / Time Gadolinium-Containing Allergy Mild Rash Verified 04/15/23 14:09 Contrast Medi Iodinated Contrast Media Allergy Rash Verified 04/15/23 14:09 [IV Contrast Dye] Review of Systems 2 Review of Systems: Yes all other systems are reviewed and are negative Constitutional: Constitutional: Reports as per [facility] [place] Past Medical History Attestation statement: The following information was validated with the patient. Onset Date is defined in the Problem List Problems that require an onset date and time if occurred within 24 hrs of arrival to the ED Aortic Dissection and Rupture; Neurologic impairment; Cardiopulmonary Arrest; Endotracheal Intubation; Insertion or Replacement of Mechanical Circulatory Assist Device Medical History History of COVID-19 Sleep apnea History of radiation therapy Stroke Aneurysm NSTEMI (non-ST elevated myocardial infarction) Gout Hypertension Hypothyroidism Ductal carcinoma in situ (DCIS) of right breast Surgical History History of removal of cyst History of breast lump/mass excision (07/09/22) Status post cardiac catheterization History of right breast biopsy (09/08/19) History of endometrial ablation (2010) History of bilateral tubal ligation (2003) History of lumpectomy of right breast (10/07/19) Family History Family History Daughter Thyroid cancer Paternal Grandmother Breast cancer Thyroid cancer Diabetes Sister Diabetes HTN (hypertension) Sister HTN (hypertension) Sister HTN (hypertension) Sister HTN (hypertension) Sister HTN (hypertension) Father Brain tumor Mother Heart attack Social History Social History Household Members: Children Household Members Other:: daughter Housing: Apartment Are you a primary customer care team coach to a significant other at home: No Do you presently have visiting nurse or other home services: No Alcohol intake: former Year quit: 2020 Patient Tobacco Use Status: Never used Tobacco Tobacco use type: Cigarette Years Smoked: 10 +/- Smoked in Last 30 Days: No Use of substances other than those prescribed or required for medical reasons: No Advance Directives: No Advance Directives Information Provided: No service: No Current occupational status: employed Current occupation: rt handed Physical Exam 2 Vital Signs: Vital Signs: Last Vital Signs Temp 98.5 F 05/22/23 18:00 Pulse 65 05/22/23 21:16 Resp 20 05/22/23 21:16 BP 127/47 L 05/22/23 21:16 Pulse Ox 98 05/22/23 21:16 O2 Del Method Room Air 05/22/23 21:16 BMI result Body Mass Index 22.6 Const: General: cooperative, comfortable and no acute distress O rientation/consciousness: patient oriented x3 Limitations: no limitations HEENT: Head: Yes normal to inspection, Yes normocephalic and Yes atraumatic Ears: hearing grossly normal bilaterally and TM's normal bilaterally General nose exam: Normal external nose present Face and sinus: Yes normal facial exam Mouth: Normal oral and palatal mucosa present, oropharynx normal and moist mucous membranes Throat: Yes posterior oropharynx normal, Yes tonsils normal and Yes uvula midline Eyes: General: appearance normal, both eyes and all related structures E yelids: Yes eyelids normal Conjunctivae: conjunctivae normal Sclerae: s clerae normal Pupils: Equal, round and reactive pupils present EOM: EOMs intact bilaterally Neck: Neck: Yes normal visual inspection, Yes full ROM and Yes no lymphadenopathy Lymphatic: no lymphadenopathy noted Chest: Other: Tenderness palpation along the anterior chest wall. Chest palpation & inspection: normal inspection of the chest Resp: Effort & Inspection: normal respiratory effort and able to speak in complete sentences Auscultation: clear to auscultation bilaterally, no crackles, no rales, no rhonchi and no wheezes Cardio: Rate: regular rate Rhythm: regular rhythm Heart sounds: S1 normal heart sound present and S2 normal heart sound present GI: Other: Abdomen is soft, with mild tenderness palpation in the epigastrium, no rebound or guarding. Normoactive bowel sounds present in all 4 quadrants. Inspection: Yes normal to inspection Skin: General skin exam: no rashes or lesions noted Trauma: no lacerations or abrasions Wounds: no wounds Neuro: General: patient oriented x3 and moves all extremities Cranial nerves: Yes Equal, round and reactive pupils present Extrem: General: Yes normal to inspection Right upper extremity: normal to inspection Left upper extremity: normal to inspection Right lower extremity: normal to inspection Left lower extremity: normal to inspection Course Reevaluation(s) Reevaluation #1: 1st troponin normal, mild leukopenia at 3.9, platelet count 148, UA revealing no evidence of infection. Ultrasound unremarkable. Cardiac workup today is reassuring. Will repeat troponin to ensure. Symptoms likely attributed to influenza. Patient no longer has chest pain, completely resolved. She is feeling well. Time: 18:00 Reevaluation #2: Second troponin negative. Vital signs have remained stable, she is not having any shortness of breath. Cardiac workup negative today. She has a heart score of 2. She is chest pain-free, not tachycardic, not hypoxic. She tested positive for influenza, which is likely the source of her symptoms. Unclear timeline therefore I do not thing antivirals are indicated at this time, as she is likely out of the window. Given workup today, patient is safe to be discharged home with close follow-up. Advised to follow-up with Cardiology outpatient. Encouraged to monitor symptoms, and to return if any new or worsening symptoms occur. Patient understands agrees with plan. Time: 20:42 Medical Decision Making Medical Decision Making MDM Narrative: This is a 48-year-old female, past medical history of gout, HTN, hypothyroidism, breast cancer, NSTEMI, brain aneurysm with surgery 05/17/21, stroke with persistent left-sided deficits, presenting to the emergency department with complaints of cold-like symptoms x2 weeks. She also reports that she developed constant chest pain this morning. Reports the pain worsens with coughing and with palpation along her chest wall. On arrival, vital signs within normal limits. Patient is nontoxic appearing, and appears comfortable. Patient has tenderness to palpation along her anterior chest wall. Patient states that she does have left-sided deficits however I did not appreciate this on my examination. Given past medical history, will obtain cardiac workup. Symptoms sound viral in nature given ongoing cough for the last 2 weeks. Lungs are clear to auscultation bilaterally, she does have tenderness to palpation along her anterior chest wall. She also reports some mild epigastric pain with associated nausea. Plan: Labs, EKG, chest x-ray, viral swabs Differential Diagnosis Differential Diagnoses: The differential diagnosis associated with the presentation includes ACS, costochondritis, pneumonia, viral syndrome, bronchitis Admission/Observation Consideration of admission/observation: Escalation of care including admission/observation considered Patient would have been admitted to the hospital had her work up had any findings where hospital admission was appropriate and her clinical presentation warranted hospital admission. Lab Data MDM Lab Attestation statement: I reviewed the patient's lab results. See course comment 05/22/23 16:41 05/22/23 16:41 Labs: Lab Results 05/22/23 05/22/23 05/22/23 Range/Units 16:41 19:52 20:09 WBC 3.9 L (4.8-10.8) X10*3/uL RBC 4.63 (4.20-5.50) X10*6/uL Hgb 14.3 (12.0-16.0) g/dl Hct 41.6 (37.0-47.0) % MCV 89.8 (80.0-98.0) fL MCH 30.9 (27.0-33.0) pg MCHC 34.4 (31.0-35.0) g/dl RDW 12.4 (11.0-16.0) % Plt Count 148 L (160-400) X10*3/uL MPV 9.9 (9.4-12.3) fL Immature Gran % (Auto) 0.3 (0.0-0.4) % Neut % (Auto) 56.6 (45-73) % Lymph % (Auto) 30.5 (20-40) % [place] % (Auto) 12.1 H (2-11) % Eos % (Auto) 0.0 (0-4) % Baso % (Auto) 0.5 (0-2) % Lymph # (Auto) 1.2 (1.2-4.9) X10*3/uL [place] # (Auto) 0.5 (0.1-1.2) X10*3/uL Eos # (Auto) 0.0 (0.0-0.4) X10*3/uL Baso # (Auto) 0.0 (0.0-0.2) X10*3/uL Abs Immat Gran (auto) 0.01 (0.00-0.03) X10*3/uL Absolute Neuts (auto) 2.2 (2.0-8.3) x10*3/uL Absolute Nucleated RBC 0.000 (0.0-0.012) X10*3/uL Nucleated RBC % (auto) 0.0 (0.0-0.2) /100WBC PT 12.3 (11.1-13.3) SEC INR 1.0 (0.9-1.1) APTT 31.5 (26.0-36.4) SEC Sodium 138 (135-145) mmol/L Potassium 3.7 (3.3-5.1) mmol/L Chloride 108 (96-108) mmol/L Carbon Dioxide 23 (22-29) mmol/L Anion Gap 11 L (12-20) BUN 7 L (9-16) mg/dL Creatinine 0.66 (0.5-1.4) mg/dL Estim Creat Clear Calc 91.7 Estimated GFR > 60 Random Glucose 97 (60-115) mg/dL Calcium 9.0 D (8.4-10.2) mg/dL Magnesium 2.0 (1.6-2.6) mg/dL Total Bilirubin 0.2 (0.0-1.0) mg/dL Direct Bilirubin < 0.2 (0.0-0.5) mg/dL AST 34 H (5-31) U/L ALT 25 (0-31) U/L Alkaline Phosphatase 62 (39-117) U/L Troponin I High Sens < 2.7 < 2.7 (<3.5-17.0) ng/L B-Natriuretic Peptide < 10 (<100) pg/mL Total Protein 6.8 (6.5-8.0) g/dL Albumin 4.0 (3.5-5.0) g/dL Lipase 18 (8-78) U/L Urine Color Dark Yellow Urine Appearance Clear Urine pH 5.5 (5.0-9.0) Ur Specific [place] 1.025 (1.005-1.025) Urine Protein 30 (1+) H (Neg-Trace) mg/dL Urine Glucose (UA) Negative (Negative) mg/dL Urine Ketones 15 (Negative) mg/dL Urine Blood Negative (Negative) Urine Nitrite Negative (Negative) Ur Leukocyte Esterase Negative (Negative) Urine RBC 0-2 (0-2) /HPF Urine WBC 0-5 (0-5) /HPF Ur Squamous Epith Cells 3-5 (0-2) /HPF Urine Bacteria None Seen (None Seen) Hyaline Casts 3-5 (0-2) /LPF COVID-19 (SANDIE) Negative (Negative) COVID-19 Clin Com See Note Influenza Type A (KELSI) Positive A (Negative) Influenza Type B (KELSI) Negative (Negative) Influenza A & B Note See Note Independent Interpretation I performed an independent interpretation of an: EKG Interpretation: Normal sinus rhythm at a ventricular rate of 76 beats per minute, LA interval 136, QTC 420, no ST elevation or depression. Radiology Impression Discussion of test interpretation with radiology: I have reviewed the radiologist's reading. Radiologist Impression: EXAMINATION: XR CHEST CLINICAL INFORMATION: Cough and chest pain. COMPARISON: None available. TECHNIQUE: 2 views of the chest were obtained. FINDINGS: No significant abnormality is noted involving the heart, lungs, mediastinum, bony thorax or soft tissues. XR/XR chest 2V IMPRESSION: Unremarkable chest examination. Dictated By: Hermelindo Herr MD Scores Heart Score History: -0- slightly suspicious ECG: -0- normal Age: -1- >45 - <65 Risk factory: -1- 1 or 2 risk factors Troponin: -0- < or = normal limit Score: 2 Risk: 1.7% Discharge Plan Discharge Clinical Impression: Atypical chest pain, Influenza A Patient Disposition: Home, Self-Care Instructions: Chest Pain (ED), Influenza (ED) Additional Instructions: You were seen in the emergency department as you had chest pain. Your EKG, chest x-ray, and labs are reassuring. Your urine does not appear to be infected. Your chest x-ray was normal. Your ultrasound of your abdomen was normal. Please drink plenty of fluids get plenty of rest. A bland diet can help with your symptoms. You may be contagious as you tested positive for influenza. If any new or worsening symptoms occur, including but not limited to chest pain or shortness of breath, please return for re-evaluation. 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 Prescriptions: No Action amlodipine 10 mg tablet 10 mg PO DAILY metoprolol succinate 100 mg tablet extended release 24 hr 100 mg PO BID 90 Days Qty: 180 3RF aspirin 81 mg tablet,delayed release (DR/EC) 81 mg PO DAILY Qty: 90 3RF levothyroxine 125 mcg Tablet 125 mcg PO DAILY gabapentin 100 mg Capsule 100 mg PO DAILY PRN (Reason: Pain) ibuprofen 800 mg tablet 800 mg PO BID atorvastatin 40 mg tablet 40 mg PO BEDTIME mirtazapine 30 mg tablet 30 mg PO DAILY topiramate 100 mg tablet 100 mg PO BEDTIME hydroxyzine pamoate 25 mg capsule 25 mg PO BEDTIME PRN (Reason: insomnia) bupropion HCl 150 mg tablet sustained-release 12 hr 150 mg PO DAILY valsartan 80 mg tablet 80 mg PO QAM Qty: 90 3RF Rx Instructions: Please add to her pill box Stand Alone Forms: Work/School Release Interventions: ED Discharge Assessment Last Done: 05/23/23 00:50 Discharge Date/Time: 05/22/23 21:20
--- NOTE | 2023-05-22 17:17 | PC.NURSE ---
Alert and oriented, reports not feeling well w/cough for the last few weeks. Reports chest pain that started this am and got worse as she continued to cough. Went to urgent care where she received x 3 nitro and asa with good effect. nsr on monitor, vss.
[2023-05-22 18:54] LABS: B Type Natriuretic Peptide < 10 pg/mL (<100)
[2023-05-22 20:04] LABS: Appearance Urine Clear; Color Urine Dark Yellow; Glucose Urine UA Negative (Negative); Leukocyte Esterase Urine Negative (Negative); Nitrite Urine Negative (Negative); PH 5.5 (5.0-9.0); Specific Gravity - Urine 1.025 (1.005-1.025); UMIC TRIGGER UACC YES; Urine Blood Negative (Negative); Urine Ketones 15 mg/dL (Negative); Urine Protein 30 (1+) mg/dL (Neg-Trace)
[2023-05-22 20:08] LABS: Bacteria Urine None Seen (None Seen); RBC Urine 0-2 /HPF (0-2); WBC Urine 0-5 /HPF (0-5)
[2023-05-22 20:36] LABS: Troponin-I High Sensitivity < 2.7 ng/L (<3.5-17.0)
--- NOTE | 2023-05-22 21:08 | PC.NURSE ---
Assumed care of pt at 19:30, laying on stretcher , in no acute distress, pending 2nd trop draw and results. Pending discharge at this time.
--- NOTE | 2023-05-22 21:17 | PC.NURSE ---
This Rn only reviewed discharge instructions with pt. pt verbalized understanding, report to rn Frank
== END 2023-05-22 21:20 | disposition home or self-care (01) ==
PROVIDERS: Physician Assistant Medical; Emergency Provider Emergency Medicine
DX: J10.1 Influenza due to other identified influenza virus with other respiratory manifestations (principal); R07.89 Other chest pain; Z11.52 Encounter for screening for COVID-19
CPT/HCPCS: 36415; 71046; 76705; 80048; 80076; 81001; 83690; 83735; 83880; 84484; 85025; 85610; 85730; 87502; 87635; 93005; 99284; 99285

== ENCOUNTER → 2023-05-22 16:12 | Outpatient (BNV) | payer MEDICAID, SELFPAY | PROVIDERS: Emergency Provider Emergency Medicine; Visit Provider Internal Medicine Cardiovascular Disease | DX: R94.31 Abnormal electrocardiogram [ECG] [EKG] (principal) | CPT/HCPCS: 93010 ==

== ENCOUNTER 2023-07-18 13:30 | Outpatient (AMB) | payer SELFPAY ==
--- NOTE | 2023-07-18 13:44 | A.OFFVIS_ITS ---
Intake Vital Signs 3 07/18/23 13:50 Height 5 ft 2 in Weight 120 lb 8 oz BMI 22.0 BP 135/64 Blood Pressure Location Lt brachial Position Sitting Pulse 79 Intake Visit Reasons: 6 mth follow up breast exam Intake Note: Patient is seen in office for 6 month follow up visit, breast exam. Pt c/o: new lump near the right side breast/axilla, gets swollen, onset 2 wks, under right breast is painful and feels a lump too mm:01/09/23 Soft Sugar Cutter Required: Yes Soft Sugar Cutter Language: Sander Wooden Pencils Name: Sarah Beth MORROW Information Interpreted: non-clinical & clinical Physical Therapy Technician: Physical Therapy Technician Present Accompanied by: Self / Same As Patient Allergies Gadolinium-Containing Contrast Medi Allergy (Mild, Verified 07/18/23 13:51) Rash Iodinated Contrast Media [IV Contrast Dye] Allergy (Verified 07/18/23 13:51) Rash Medication List - Last Reconciled 07/18/23 by Tony Osuna MD amlodipine 10 mg PO DAILY aspirin 81 mg PO DAILY atorvastatin 40 mg PO BEDTIME bupropion HCl 150 mg PO DAILY gabapentin 100 mg PO DAILY PRN hydroxyzine pamoate 25 mg PO BEDTIME PRN ibuprofen 800 mg PO BID levothyroxine 125 mcg PO DAILY metoprolol succinate ER 100 mg PO BID 90 days mirtazapine 30 mg PO DAILY topiramate 100 mg PO BEDTIME valsartan 80 mg PO QAM HPI HPI Comments 2 History of Present Illness0 Details 48-year-old female patient, 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 Underwent right breast lumpectomy on 09/23/2019 followed by wider excision on 10/08/2019. 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 She underwent radiation therapy at [facility] which was completed on 12/09/2019. She developed lymphedema of the right breast and subsequently underwent physical therapy for approximately 3 weeks. Genetic testing revealed no deleterious mutations although she did have a variant of unknown significance. MRI of 10/24/2021 revealed indeterminate linear enhancement of the left breast, 10:00 o'clock and MR guided biopsy was recommended. 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 On 10/01/2022 she underwent an excision of 2 left breast cysts. Pathology revealed no atypia or malignancy. She reports some pain in the right breast at the lower outer quadrant and also pain and itchiness from the radiation therapy tattoo in the lateral right chest. Her most recent mammogram from 03/11/2023 revealed increased size of the breast cyst on the left side and no mammographic evidence of malignancy (BI-RADS 2). Routine annual screening mammography was recommended in 1 year. She feels swelling in the upper outer quadrant into the axilla and thinks she feels a small superficial nodule in the skin. [facility], [facility] Medical History History of COVID-19 Sleep apnea History of radiation therapy Stroke Aneurysm NSTEMI (non-ST elevated myocardial infarction) Gout Hypertension Hypothyroidism Ductal carcinoma in situ (DCIS) of right breast Surgical History History of removal of cyst History of breast lump/mass excision (07/09/22) Status post cardiac catheterization History of right breast biopsy (09/08/19) History of endometrial ablation (2010) History of bilateral tubal ligation (2003) History of lumpectomy of right breast (10/07/19) Family History Daughter Thyroid cancer Paternal Grandmother Breast cancer Thyroid cancer Diabetes Sister Diabetes HTN (hypertension) Sister HTN (hypertension) Sister HTN (hypertension) Sister HTN (hypertension) Sister HTN (hypertension) Father Brain tumor Mother Heart attack Social History Household Members: Children Household Members Other:: daughter Housing: Apartment Are you a primary manager managed care to a significant other at home: No Do you presently have visiting nurse or other home services: No Alcohol intake: former Year quit: 2020 Patient Tobacco Use Status: Never used Tobacco Tobacco use type: Cigarette Years Smoked: 10 +/- service: No Current occupational status: employed Current occupation: rt handed Physical Exam Vital Signs: Last Vital Signs Pulse 79 07/18/23 13:50 BP 135/64 07/18/23 13:50 BMI result Body Mass Index 22.0 Const General: no acute distress and well developed Nutritional Appearance: well nourished Orientation/consciousness: patient oriented x3 Limitations: no limitations Chest Other: Right breast with a well-healed incision in the upper outer quadrant radiating from the nipple. There is tenderness throughout the outer quadrants of the right breast. Patient points to an area in the anterior axilla over the pectoralis muscle. No definite palpable masses appreciated although there is palpable tenderness. Lymphadenopathy is not identified. No other breast skin change nipple discharge or palpable mass is appreciated. Left breast with a well-healed incision in a circumareolar location. Diffuse areas of mild tenderness are noted but no suspicious palpable mass, skin change, nipple discharge or enlarged lymph nodes are appreciated. Chest/axillae images: 2 1. Site of tenderness Skin Other: Warm, dry, no rash Neuro General: patient oriented x3 Extrem Other: No upper extremity lymphedema Assessment & Plan Assessment & Plan (1) Lymphedema of breast: Code(s): I89.0 - Lymphedema, not elsewhere classified (2) Right axillary swelling: Code(s): M79.89 - Other specified soft tissue disorders (3) Ductal carcinoma in situ (DCIS) of right breast: Code(s): D05.11 - Intraductal carcinoma in situ of right breast Plan 48-year-old female patient returning for a routine follow-up breast examination. 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 She subsequently underwent radiation therapy at [facility]. She had several cystic lesions removed from the left breast which she tolerated well. Her most recent mammogram dated 01/09/2023 revealed no mammographic evidence of malignancy. The prior cyst appear to be decreasing in size by ultrasound. Mammogram and ultrasound were felt to be benign (BI-RADS 2). Follow-up screening mammogram is recommended in 1 year. Examination today revealed no suspicious findings in either breast although the patient is symptomatic in the right axilla with an area of tenderness. She reports feeling a lump in this location as well. I recommended follow-up ultrasound of this area to evaluate for lymph node enlargement or other suspicious mass. She will follow-up for routine breast examination in 6 months. Orders: Orders 2 US breast RT limited 07/18/23 D05.11 - Intraductal carcinoma in situ of right breast, I89.0 - Lymphedema, not elsewhere classified, M79.89 - Other specified soft tissue disorders Coding Level of Care Code Est Pt Level 3 (70824) Diagnoses Lymphedema of breast I89.0 Right axillary swelling M79.89 Ductal carcinoma in situ (DCIS) of right breast D05.11
[2023-07-18 13:50] VITALS: BP 135/64; PULSE 79; BMI 22.0
== END 2023-07-18 14:07 | disposition home or self-care (01) ==
PROVIDERS: PCP General Practice; Visit Provider Surgery
DX: I89.0 Lymphedema, not elsewhere classified (principal); M79.89 Other specified soft tissue disorders; D05.11 Intraductal carcinoma in situ of right breast
CPT/HCPCS: 99213

== ENCOUNTER → 2023-07-18 13:30 | Outpatient (BNVA) | payer OTHER, SELFPAY | PROVIDERS: PCP General Practice; Visit Provider Surgery | DX: I89.0 Lymphedema, not elsewhere classified (principal); M79.89 Other specified soft tissue disorders; D05.11 Intraductal carcinoma in situ of right breast | CPT/HCPCS: 99212 ==

== ENCOUNTER 2023-07-31 11:02 | Outpatient (AMB) | payer SELFPAY ==
[2023-07-31 11:16] VITALS: BP 132/62; PULSE 74; BMI 22.3
--- NOTE | 2023-07-31 11:16 | A.OFFVIS_ITS ---
Intake Vital Signs 07/31/23 11:16 Height 5 ft 2 in Weight 122 lb 2.177 oz BMI 22.3 BP 132/62 Blood Pressure Location Lt brachial Position Sitting Pulse 74 Pulse Source Pulse Oximeter Intake Visit Reasons: f/up Intake Note: pt its feeling fine. After School Counselor Required: No Accompanied by: Self / Same As Patient Allergies Gadolinium-Containing Contrast Medi Allergy (Mild, Verified 07/18/23 13:51) Rash Iodinated Contrast Media [IV Contrast Dye] Allergy (Verified 07/18/23 13:51) Rash Medication List - Last Reconciled 07/31/23 by Jose A Gaona MD amlodipine 10 mg PO DAILY aspirin 81 mg PO DAILY atorvastatin 40 mg PO BEDTIME bupropion HCl 150 mg PO DAILY gabapentin 100 mg PO DAILY PRN hydroxyzine pamoate 25 mg PO BEDTIME PRN ibuprofen 800 mg PO BID levothyroxine 125 mcg PO DAILY metoprolol succinate ER 100 mg PO BID 90 days mirtazapine 30 mg PO DAILY topiramate 100 mg PO BEDTIME valsartan 80 mg PO QAM HPI HPI Comments History of Present Illness Details Very pleasant 48-year-old female here for follow-up. She was seen in December 2020 when she presented to [facility] with chest pain and ruled in for NSTEMI. 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 She was conservatively managed. She also had cerebral aneurysm which was treated with pipeline Shield stent. She had minor stroke after that. On last visit she was complaining of palpitations. She was referred for 3 Holter monitor. This showed sinus rhythm with average heart rate 2 beats per minute, no significant pauses or bradycardia noted. 159 PVCs were noted. 04/25/22: She is here for follow-up. Tanner graham is saying her blood pressure was fluctuating up and down had her amlodipine was increased to 10 mg daily. Her blood pressure in the office currently stable. She is denying any chest discomfort or shortness of breath currently. She is complaining of palpitations. 12/05/22: She is here for follow-up. Tanner graham was seen in August by Teresa. She is complaining her blood pressure has been rising and at times she has noticed her blood pressure to be as high as 180s. She checks with her own automated blood pressure cuff at home. She has been taking amlodipine 10 mg and metoprolol succinate 50 mg twice a day. She also gets some sharp left-sided chest pains. She is describing stabbing sensation which also happens when she has elevated blood pressure. She has background of fibromuscular dysplasia. 01/30/23: Returns for follow-up. On las t visit we added valsartan 80 mg once a day but it appears her pharmacy did not added to her medication box. She is only taking metoprolol and amlodipine currently. Her blood pressure in the office is 144/86. At home she had blood pressures as high as 180s. She said she had some visual changes and was not feeling well and at that time her blood pressure was checked by a nurse and blood pressure was 180s systolic. This improved with rest. Denying any other symptoms. 04/15/23: She is here for f/u. She has be en feeling fine. No chest pain or shortness of breath. Occasionally when she is stressed she gets palpitations lasting for few seconds. Today after checking her blood pressure the RN told her that her blood pressure was good and even that cause some palpitations. She is saying that she gets 7 she is excited or under stress. No prolonged episodes. 07/31/23: She returns for follow-up. Tanner graham has been doing well. Occasional palpitations. 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 She has no chest pains or any other symptoms. We discussed about her underlying medical issues including SCAD in the past. We have decided do an exercise stress test which we will arrange. [facility] Medical History History of COVID-19 Sleep apnea History of radiation therapy Stroke Aneurysm NSTEMI (non-ST elevated myocardial infarction) Gout Hypertension Hypothyroidism Ductal carcinoma in situ (DCIS) of right breast Surgical History History of removal of cyst History of breast lump/mass excision (07/09/22) Status post cardiac catheterization History of right breast biopsy (09/08/19) History of endometrial ablation (2010) History of bilateral tubal ligation (2003) History of lumpectomy of right breast (10/07/19) Family History Daughter Thyroid cancer Paternal Grandmother Breast cancer Thyroid cancer Diabetes Sister Diabetes HTN (hypertension) Sister HTN (hypertension) Sister HTN (hypertension) Sister HTN (hypertension) Sister HTN (hypertension) Father Brain tumor Mother Heart attack Social History Household Members: Children Household Members Other:: daughter Housing: Apartment Are you a primary home care administrator to a significant other at home: No Do you presently have visiting nurse or other home services: No Alcohol intake: former Year quit: 2020 Patient Tobacco Use Status: Never used Tobacco Tobacco use type: Cigarette Years Smoked: 10 +/- service: No Current occupational status: employed Current occupation: rt handed Review of Systems Const Denies chills, Denies fatigue, Denies fever(s), Denies frequent falls, Denies weakness, Denies weight gain and Denies weight loss ENT Denies dizziness Card Denies chest pain, Denies leg edema, Denies lightheadedness, Denies palpitations, Denies dyspnea and Denies dyspnea on exertion Resp Denies cough, Denies dyspnea and Denies dyspnea on exertion GI Denies hematochezia Musc Denies abnormal gait, Denies muscle weakness, Denies numbness, Denies radiating pain into limb and Denies tingling Neuro Denies abnormal gait, Denies dizziness, Denies frequent falls, Denies numbness, Denies tingling and Denies weakness Endo Denies fatigue and Denies palpitations Physical Exam Vital Signs: Last Vital Signs Pulse 74 07/31/23 11:16 BP 132/62 07/31/23 11:16 BMI result Body Mass Index 22.3 GENERAL APPEARANCE: in no acute distress, pleasant. NECK: no carotid bruit, no jugular venous distention. SKIN: no suspicious lesions, warm and dry. HEART: no murmurs, regular rate and rhythm. LUNGS: clear to auscultation bilaterally. ABDOMEN: soft, nontender. EXTREMITIES: no edema. PERIPHERAL PULSES: equal. NEUROLOGIC: No gross deficits, AAO X 3 Assessment & Plan Assessment & Plan (1) Coronary artery dissection: Code(s): I25.42 - Coronary artery dissection (2) Fibromuscular dysplasia: Code(s): I77.3 - Arterial fibromuscular dysplasia Plan Very pleasant 48 year female who is here for follow-up. 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 She has done well since then and has been clinically stable. She is on beta- shyam and has been tolerating medications well. Blood pressure is well controlled. 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 I have explained to her that she will need an exercise stress test which will arrange for her. Follow-up with us in few months. Thank you for allowing me to participate in the care of your patient. Please feel free to contact me if you have any questions. Coding Level of Care Code Est Pt Level 4 (46271) Diagnoses Coronary artery dissection I25.42 Fibromuscular dysplasia I77.3
== END 2023-07-31 11:57 | disposition home or self-care (01) ==
PROVIDERS: PCP General Practice; Visit Provider Internal Medicine Cardiovascular Disease
DX: I25.42 Coronary artery dissection (principal); I77.3 Arterial fibromuscular dysplasia
CPT/HCPCS: 99214

== ENCOUNTER → 2023-07-31 11:02 | Outpatient (BNVA) | payer OTHER, SELFPAY | PROVIDERS: PCP General Practice; Visit Provider Internal Medicine Cardiovascular Disease | DX: I25.42 Coronary artery dissection (principal); I77.3 Arterial fibromuscular dysplasia | CPT/HCPCS: 99212 ==

== ENCOUNTER 2023-08-07 07:52 | Outpatient (REF) | payer OTHER, SELFPAY ==
--- NOTE | ~2023-08-07 | US_ITS ---
EXAMINATION: MM DIAGNOSTIC DIGITAL BREAST TOMOSYNTHESIS, RIGHT US BREAST LIMITED, LEFT CLINICAL INFORMATION: 48-year-old female, history of DCIS right breast laterally status post lumpectomy in 09/23/2019. Patient complaining of pain in the far outer upper right breast, and a focus of palpable concern in the high right axillary region. COMPARISON: Mammography: 01/09/2023, 09/12/2021, 09/06/2020, and dating back to 2017. MRI bilateral breasts 10/24/2021. TECHNIQUE: Digital breast tomosynthesis is performed in both the craniocaudal and mediolateral oblique views along with computer-aided detection (CAD). Synthesized 2D images are generated from the tomosynthesis. FINDINGS: The breasts are heterogeneously dense, which may obscure small masses (ACR BI-RADS breast composition Category c). Post lumpectomy changes in the mid outer right breast with associated scarring are again noted, not significantly changed. No suspicious masses, suspicious grouped calcifications, or developing areas of architectural distortion. Within the upper outer right breast, in the region marked of pain, no underlying mammographic abnormality is identified. No significant skin or axillary abnormality in the right breast. ULTRASOUND: CLINICAL INFORMATION: As above. COMPARISON: 02/23/2022 right breast ultrasound, noncontributory. TECHNIQUE: Targeted sonographic evaluation was performed using a high frequency linear transducer. The axillary region and upper outer quadrant right breast were scanned. Selected archived documentation. FINDINGS: LEFT BREAST: -No evidence of mass, cystic abnormality, abnormal shadowing, or other finding in the tail of Bynum or relating to the tiny palpable focus in the high right axilla. No correlating abnormalities on ultrasound. US/US breast RT limited mamm only IMPRESSION: -There are no findings in the right breast suspicious for malignancy. -Stable post lumpectomy and treatment changes right breast. -No ultrasonographic or mammographic correlate to the region of breast pain upper outer quadrant right breast, or the palpable focus of abnormality in the high right axilla. Recommend clinical management. -Otherwise, recommend returning to routine screening mammography. OVERALL ASSESSMENT: Mammography: BI-RADS 2 - Benign Findings Ultrasound: BI-RADS 2 - Benign Findings RECOMMENDATION: 1. Patient should be managed based on the clinical impression. 2. Otherwise, routine annual screening mammography. This patient's information was entered into a reminder system with a target due date for their next mammogram.
== END 2023-08-07 07:53 | disposition home or self-care (01) ==
LOC: HO.MAMMO 07:52
PROVIDERS: PCP General Practice; Visit Provider Surgery
DX: Z85.3 Personal history of malignant neoplasm of breast (principal)
CPT/HCPCS: 76642; 77061; 77065

== ENCOUNTER → 2023-08-07 08:30 | Outpatient (BNV) | payer SELFPAY | PROVIDERS: PCP General Practice; Visit Provider Radiology Diagnostic Radiology | DX: N64.4 Mastodynia (principal); Z98.890 Other specified postprocedural states | CPT/HCPCS: 76642; 77061; 77065 ==

== ENCOUNTER → 2023-09-02 09:30 | Outpatient (REF) | payer MEDICAID, SELFPAY ==
--- NOTE | 2023-09-02 09:33 | CA_ITS ---
Acquisition Time: 2023-09-02 09:46:20 Total Exercise Time: 00:09:45 Test Indications: DOT Medications: SEE H Protocol: SHERI Max HR: 148 BPM 87% of Pred: 170 BPM Max BP: 140/080 mmHG Max Work Load: 11.3 METS Exercise stress test exercise 9 min 45 sec of Sheri protocol achieving 87% MPHR and 11.3 METS, without anginal symptoms, with isolated PVCs, with normotensive response to exercise, with nondiagnoisitic EKGs. Test reviewed with Dr. Forbes Referred By: Jose A Gaona Overread By: Estephanie Byrd
== END ==
LOC: HO.CARD 09:30
PROVIDERS: PCP General Practice; Visit Provider Internal Medicine Cardiovascular Disease
DX: I25.42 Coronary artery dissection (principal)
CPT/HCPCS: 93017

== ENCOUNTER 2023-09-30 10:58 | Outpatient (AMB) | payer MEDICAID, SELFPAY ==
--- NOTE | 2023-09-30 11:00 | A.OFFVIS_ITS ---
Vital Signs 09/30/23 11:01 Height 5 ft 2 in Weight 123 lb 14.397 oz BMI 22.7 BP 163/67 H Blood Pressure Location Lt brachial Position Sitting Pulse 69 Intake Visit Reasons: Colonoscopy Screening Intake Note: New patient in office visit today for colonoscopy screening. CC: Patient c/o constipation, occasional blood on toilet paper when wiping, and abdominal bloating. 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 Required: No Allergies Gadolinium-Containing Contrast Medi Allergy (Mild, Verified 09/30/23 11:03) Rash Iodinated Contrast Media [IV Contrast Dye] Allergy (Verified 09/30/23 11:03) Rash Medication List - Last Reconciled 09/30/23 by Yesenia Frost PA-C amlodipine 10 mg PO DAILY aspirin 81 mg PO DAILY atorvastatin 40 mg PO BEDTIME bupropion HCl SR 150 mg PO DAILY gabapentin 100 mg PO DAILY PRN hydroxyzine pamoate 25 mg PO BEDTIME PRN ibuprofen 800 mg PO BID PRN levothyroxine 125 mcg PO DAILY metoprolol succinate ER 100 mg PO BID 90 days mirtazapine 30 mg PO DAILY topiramate 100 mg PO BEDTIME valsartan 80 mg PO QAM HPI Comments Details: 48-year-old female HX IA, CVA, breast cancer-HX- of fibromuscular dysplasia with renal artery aneurysm as well as 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 Gaona-she will see him in November she has not had any further cardiac issues She has history constipation intermittent bright red blood when wiping after straining- she has hemorrhoids-she admits she does not eat much for fiber vegetables Appetite is fairly good she has never been a big eater however she does not have any nausea vomiting or acid reflux No nausea, vomiting, abdominal pain, hematemesis, fever or chills [facility] Medical History (Updated 09/30/23 @ 11:48 by Yesenia Frost PA-C) History of COVID-19 Sleep apnea History of radiation therapy Stroke Aneurysm NSTEMI (non-ST elevated myocardial infarction) Gout Hypertension Hypothyroidism Ductal carcinoma in situ (DCIS) of right breast Surgical History History of removal of cyst History of breast lump/mass excision (07/09/22) Status post cardiac catheterization History of right breast biopsy (09/08/19) History of endometrial ablation (2010) History of bilateral tubal ligation (2003) History of lumpectomy of right breast (10/07/19) Family History Daughter Thyroid cancer Paternal Grandmother Breast cancer Thyroid cancer Diabetes Sister Diabetes HTN (hypertension) Sister HTN (hypertension) Sister HTN (hypertension) Sister HTN (hypertension) Sister HTN (hypertension) Father Brain tumor Mother Heart attack Social History Household Members: Children Household Members Other:: daughter Housing: Apartment Are you a primary manager respiratory care to a significant other at home: No Do you presently have visiting nurse or other home services: No Alcohol intake: former Year quit: 2020 Patient Tobacco Use Status: Never used Tobacco Tobacco use type: Cigarette Years Smoked: 10 +/- service: No Current occupational status: employed Current occupation: rt handed Review of Systems Const All systems reviewed & are unremarkable except as noted in HPI and below Card Denies chest pain and Denies dyspnea Resp Denies dyspnea GI Denies abdominal pain, Reports bloating, Reports hematochezia, Reports constipation, Denies nausea and Denies vomiting Physical Exam Vital Signs: Last Vital Signs Pulse 69 09/30/23 11:01 BP 163/67 H 09/30/23 11:01 BMI result Body Mass Index 22.7 Const General: cooperative, healthy appearing, comfortable and no acute distress Nutritional Appearance: thin Orientation/consciousness: patient oriented x3 Limitations: no limitations Eyes Sclerae: sclerae normal Resp Effort & Inspection: normal respiratory effort and able to speak in complete sentences Auscultation: clear to auscultation bilaterally, no rales, no rhonchi and no wheezes Cardio Rate: regular rate Rhythm: regular rhythm Heart sounds: S1 normal heart sound present and S2 normal heart sound present Skin General skin exam: no rashes or lesions noted Neuro General: patient oriented x3 Extrem General: Yes full ROM Psych Appearance: grossly normal and well kempt Mental Status: mental status grossly normal Speech and movement: Normal speech and movement present and Clear speech present Affect: normal affect Attitude: cooperative Thought process: Normal thought process present Thought content: Normal thought content present Insight: Good insight present (Psych) Judgement: Good judgement present (Psych) Results Reviewed Results Reviewed: 07/31/23 reviewed cardiology note Assessment & Plan Assessment & Plan (1) Rectal bleeding: Comment: MLC hemorrhoids- will further evaluate-colonoscopy Code(s): K62.5 - Hemorrhage of anus and rectum Category: Medical Plan: fiber avoid strain (2) Chronic constipation: Comment: fiber Hydrate well Code(s): K59.09 - Other constipation Category: Medical Plan: Colonoscopy High-fiber diet Fiber supplement BMI: 22.7kg/m? (3) History of IA (myocardial infarction): Comment: Compliant, continue to follow with recommend-will discuss colonoscopy at next visit Code(s): I25.2 - Old myocardial infarction Category: Medical Plan: f/u with Dr. Gaona 07/2023-f/u-12/04/23- (4) Encounter for screening colonoscopy: Comment: Discussed procedure, rare risks need for escort Code(s): Z12.11 - Encounter for screening for malignant neoplasm of colon Category: Medical Plan: Colonoscopy, MiraLax Gatorade Orders: Orders EGD/[place] Combo - GI Use Only Today Medications: New bisacodyl (Dulcolax (bisacodyl)) Day before procedure @ 12 noon Take 4 tablets by mouth followed by large glass of water 20 mg (4 x 5 mg) PO ONCE 1 day PRN 4 tabs 0RF colonoscopy prep Z12.11 - Encounter for screening for malignant neoplasm of colon polyethylene glycol 3350 (Miralax) Take as directed by mouth the day before your procedure. 238 grams PO ONCE 1 day PRN 238 grams 0RF laxative effect methylcellulose (laxative) (Citrucel) 500 mg PO TID 90 tabs 5RF Patient Instructions: A very pleasant 48-year-old female- Screening colonoscopy-she will discuss with Cardiology for reassurance. She has visit in October MiraLax Gatorade prep, reviewed literature Maintain high-fiber diet Fiber supplement Avoid straining Encouraged to call questions or concerns, any change in health status or medication Coding Level of Care Code New Pt Level 3 (62957) Diagnoses Rectal bleeding K62.5 Chronic constipation K59.09 History of IA (myocardial infarction) I25.2 Encounter for screening colonoscopy Z12.11 Time Spent (min) 30
[2023-09-30 11:01] VITALS: BP 163/67; PULSE 69; BMI 22.7
== END 2023-09-30 13:18 | disposition home or self-care (01) ==
PROVIDERS: PCP General Practice; Visit Provider Physician Assistant
DX: K62.5 Hemorrhage of anus and rectum (principal); K59.09 Other constipation; I25.2 Old myocardial infarction; Z12.11 Encounter for screening for malignant neoplasm of colon
CPT/HCPCS: 99203

== ENCOUNTER → 2023-09-30 10:58 | Outpatient (BNVA) | payer MEDICAID, SELFPAY | PROVIDERS: PCP General Practice; Visit Provider Physician Assistant | DX: Z12.11 Encounter for screening for malignant neoplasm of colon (principal); K62.5 Hemorrhage of anus and rectum; K59.00 Constipation, unspecified; I25.2 Old myocardial infarction | CPT/HCPCS: 99212 ==

== ENCOUNTER → 2023-10-08 14:54 | Outpatient (RCR) | payer OTHER, SELFPAY ==
--- NOTE | 2020-05-17 16:03 | MHC.OT.DC ---
[address] [phone] F: [phone] Occupational Therapy Discharge Note Provider: DR. BRAVO Diagnosis: RIGHT BREAST LYMPHEDEMA Date of Surgery: 09/23/19 Date of Evaluation: 04/21/20 Date of Discharge: Treatments to Date: 2 Cancellations to Date: 0 No Shows to Date: 0 Discharge Status: Discharge Summary: GOALS MET FOR RUE PAIN, AROM, EDEMA AND SELF MANAGEMENT. Pt PRESENTS WITH MILD R BREAST EDEMA THAT SHE REPORTS FLUCTUATES SHE WILL BENEFIT FROM A COMPRESSION BRA FOR SELF MANAGEMENT AND A COMPRESSION SLEEVE AND GAUNTLET FOR AIR TRAVEL TO DECREASE THE POTENTIAL FOR FLUID ACCUMULATION IN THE TISSUE RECOMMENDED BY THE [employer]ATIONAL [employer]YMPHEDEMA [employer] CON'T SKILLED THERAPY IS NOT NEEDED AT THIS TIME. Electronically Signed By: AILIN HEBERT OT CHT CLT Reviewed/agree with student documentation: N/A Therapist: Please Sign and return to therapist, thank you for your referral.
== END | disposition home or self-care (01) ==
LOC: HO.OT 04-21 14:53
PROVIDERS: PCP Nurse Practitioner Family; Visit Provider Surgery
DX: I89.0 Lymphedema, not elsewhere classified (principal); N64.4 Mastodynia; D05.11 Intraductal carcinoma in situ of right breast
CPT/HCPCS: 97110; 97166; 97535

== ENCOUNTER 2023-12-04 13:59 | Outpatient (AMB) | payer MEDICAID, SELFPAY ==
[2023-12-04 14:04] VITALS: BP 140/60; PULSE 69; BMI 22.3
--- NOTE | 2023-12-04 14:04 | MHC.OFFVIS ---
Vital Signs 12/04/23 14:04 Height 5 ft 2 in Weight 121 lb 11.123 oz BMI 22.3 BP 140/60 H Blood Pressure Location Lt brachial Position Sitting Pulse 69 Pulse Source Pulse Oximeter Intake Visit Reasons: 4 mth f/up Intake Note: 4 mth f/up Manager Philosophy Required: No Accompanied by: Self / Same As Patient Allergies Gadolinium-Containing Contrast Medi Allergy (Mild, Verified 09/30/23 11:03) Rash Iodinated Contrast Media [IV Contrast Dye] Allergy (Verified 09/30/23 11:03) Rash Medication List - Last Reconciled 12/04/23 by Jose A Gaona MD amlodipine 10 mg PO DAILY aspirin 81 mg PO DAILY atorvastatin 40 mg PO BEDTIME bisacodyl (Dulcolax (bisacodyl)) 20 mg (4 x 5 mg) PO ONCE PRN 1 day bupropion HCl SR 150 mg PO DAILY gabapentin 100 mg PO DAILY PRN hydroxyzine pamoate 25 mg PO BEDTIME PRN ibuprofen 800 mg PO BID PRN levothyroxine 125 mcg PO DAILY methylcellulose (laxative) (Citrucel) 500 mg PO TID metoprolol succinate ER 100 mg PO BID 90 days mirtazapine 30 mg PO DAILY polyethylene glycol 3350 (Miralax) 238 grams PO ONCE PRN 1 day topiramate 100 mg PO BEDTIME valsartan 80 mg PO QAM HPI Comments Details: Very pleasant 48-year-old female here for follow-up. She was seen in December 2020 when she presented to [facility] with chest pain and ruled in for NSTEMI. 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 She was conservatively managed. She also had cerebral aneurysm which was treated with pipeline Shield stent. She had minor stroke after that. On last visit she was complaining of palpitations. She was referred for 3 Holter monitor. This showed sinus rhythm with average heart rate 2 beats per minute, no significant pauses or bradycardia noted. 159 PVCs were noted. 04/25/22: She is here for follow-up. She is saying her blood pressure was fluctuating up and down had her amlodipine was increased to 10 mg daily. Her blood pressure in the office currently stable. She is denying any chest discomfort or shortness of breath currently. She is complaining of palpitations. 12/05/22: She is here for follow-up. She was seen in August by Teresa. She is complaining her blood pressure has been rising and at times she has noticed her blood pressure to be as high as 180s. She checks with her own automated blood pressure cuff at home. She has been taking amlodipine 10 mg and metoprolol succinate 50 mg twice a day. She also gets some sharp left-sided chest pains. She is describing stabbing sensation which also happens when she has elevated blood pressure. She has background of fibromuscular dysplasia. 01/30/23: Returns for follow-up. On last visit we added valsartan 80 mg once a day but it appears her pharmacy did not added to her medication box. She is only taking metoprolol and amlodipine currently. Her blood pressure in the office is 144/86. At home she had blood pressures as high as 180s. She said she had some visual changes and was not feeling well and at that time her blood pressure was checked by a nurse and blood pressure was 180s systolic. This improved with rest. Denying any other symptoms. 04/15/23: She is here for f/u. She has been feeling fine. No chest pain or shortness of breath. Occasionally when she is stressed she gets palpitations lasting for few seconds. Today after checking her blood pressure the RN told her that her blood pressure was good and even that cause some palpitations. She is saying that she gets 7 she is excited or under stress. No prolonged episodes. 07/31/23: She returns for follow-up. She has been doing well. Occasional palpitations. 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 She has no chest pains or any other symptoms. We discussed about her underlying medical issues including SCAD in the past. We have decided do an exercise stress test which we will arrange. 12/04/23: She is here for f/u. BP is high. No CP or SOB. [facility] Medical History History of COVID-19 Sleep apnea History of radiation therapy Stroke Aneurysm NSTEMI (non-ST elevated myocardial infarction) Gout Hypertension Hypothyroidism Ductal carcinoma in situ (DCIS) of right breast Surgical History History of removal of cyst History of breast lump/mass excision (07/09/22) Status post cardiac catheterization History of right breast biopsy (09/08/19) History of endometrial ablation (2010) History of bilateral tubal ligation (2003) History of lumpectomy of right breast (10/07/19) Family History Daughter Thyroid cancer Paternal Grandmother Breast cancer Thyroid cancer Diabetes Sister Diabetes HTN (hypertension) Sister HTN (hypertension) Sister HTN (hypertension) Sister HTN (hypertension) Sister HTN (hypertension) Father Brain tumor Mother Heart attack Social History Household Members: Children Household Members Other:: daughter Housing: Apartment Are you a primary intensive care medicine specialist to a significant other at home: No Do you presently have visiting nurse or other home services: No Alcohol intake: former Year quit: 2020 Patient Tobacco Use Status: Never used Tobacco Tobacco use type: Cigarette Years Smoked: 10 +/- service: No Current occupational status: employed Current occupation: rt handed Review of Systems Const Denies chills, Denies fatigue, Denies fever(s), Denies frequent falls, Denies weakness, Denies weight gain and Denies weight loss ENT Denies dizziness Card Denies chest pain, Denies leg edema, Denies lightheadedness, Denies palpitations, Denies dyspnea and Denies dyspnea on exertion Resp Denies cough, Denies dyspnea and Denies dyspnea on exertion GI Denies hematochezia Musc Denies abnormal gait, Denies muscle weakness, Denies numbness, Denies radiating pain into limb and Denies tingling Neuro Denies abnormal gait, Denies dizziness, Denies frequent falls, Denies numbness, Denies tingling and Denies weakness Endo Denies fatigue and Denies palpitations Physical Exam Vital Signs: Last Vital Signs Pulse 69 12/04/23 14:04 BP 140/60 H 12/04/23 14:04 BMI result Body Mass Index 22.3 GENERAL APPEARANCE: in no acute distress, pleasant. NECK: no carotid bruit, no jugular venous distention. SKIN: no suspicious lesions, warm and dry. HEART: no murmurs, regular rate and rhythm. LUNGS: clear to auscultation bilaterally. ABDOMEN: soft, nontender. EXTREMITIES: no edema. PERIPHERAL PULSES: equal. NEUROLOGIC: No gross deficits, AAO X 3 Assessment & Plan Assessment & Plan (1) Hypertension: Code(s): I10 - Essential (primary) hypertension Category: Medical (2) Fibromuscular dysplasia: Code(s): I77.3 - Arterial fibromuscular dysplasia Category: Medical (3) Coronary artery dissection: Code(s): I25.42 - Coronary artery dissection Category: Medical Plan Very pleasant 48 year female who is here for follow-up. 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 She has done well since then and has been clinically stable. She is on beta-shyam and has been tolerating medications well. Blood pressure is elevated. I have advised her to increase the valsartan to 160 mg daily. Follow-up with us in few months. Thank you for allowing me to participate in the care of your patient. Please feel free to contact me if you have any questions. Orders: Orders US renal doppler Today I77.3 - Arterial fibromuscular dysplasia Medications: New valsartan 160 mg PO DAILY 90 tabs 3RF I77.3 - Arterial fibromuscular dysplasia Discontinued valsartan Please add to her pill box Discontinued Reason: Doctor's Order 80 mg PO QAM 90 tabs 3RF blood pressure I10 - Essential (primary) hypertension Coding Level of Care Code Est Pt Level 4 (55716) Diagnoses Hypertension I10 Fibromuscular dysplasia I77.3 Coronary artery dissection I25.42
== END 2023-12-04 14:22 | disposition home or self-care (01) ==
PROVIDERS: PCP General Practice; Referring Provider General Practice; Visit Provider Internal Medicine Cardiovascular Disease
DX: I10 Essential (primary) hypertension (principal); I77.3 Arterial fibromuscular dysplasia; I25.42 Coronary artery dissection
CPT/HCPCS: 99214

== ENCOUNTER → 2023-12-04 13:59 | Outpatient (BNVA) | payer MEDICAID, SELFPAY | PROVIDERS: PCP General Practice; Visit Provider Internal Medicine Cardiovascular Disease | DX: I10 Essential (primary) hypertension (principal); I25.42 Coronary artery dissection; I77.3 Arterial fibromuscular dysplasia | CPT/HCPCS: 99212 ==

== ENCOUNTER 2024-01-02 09:20 | Outpatient (AMB) | payer MEDICAID, SELFPAY ==
--- NOTE | 2024-01-02 09:21 | A.OFFVIS_ITS ---
Vital Signs 3 01/02/24 09:28 Height 5 ft 2 in Weight 122 lb BMI 22.3 BP 150/72 H Blood Pressure Location Lt brachial Position Sitting Pulse 76 Intake Visit Reasons: bump/pain in left breast Intake Note: Patient is seen in office for lump of the left breast. Pt c/o: admits to pain in the left breast, pain for a week, dark spot, burning sensation around the nipple, no discharge mm:08/07/23 Child Welfare Counselor Required: No Accompanied by: Self / Same As Patient Allergies Gadolinium-Containing Contrast Medi Allergy (Mild, Verified 01/02/24 09:27) Rash Iodinated Contrast Media [IV Contrast Dye] Allergy (Verified 01/02/24 09:27) Rash HPI Comments Details: 48-year-old female patient, former patient of Dr. Gamez with a prior history of ductal carcinoma in-situ returning for a routine follow-up breast examination. She underwent right breast lumpectomy on 09/23/2019 followed by wider excision on 10/08/2019. Pathology revealed DCIS, grade 3, ER/HI negative. Radiation therapy at [facility] was completed on 12/09/2019. She developed lymphedema of the right breast and subsequently underwent physical therapy for approximately 3 weeks. Genetic testing revealed no deleterious mutations although she did have a variant of unknown significance. MRI of 10/24/2021 revealed indeterminate linear enhancement of the left breast, 10:00 o'clock and MR guided biopsy was recommended. 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 On 10/01/2022 she underwent an excision of 2 left breast cysts. Pathology revealed no atypia or malignancy. She reports some pain in the right breast at the lower outer quadrant and also pain and itchiness from the radiation therapy tattoo in the lateral right chest. Mammogram and ultrasound of the right breast performed on 08/04/2023 revealed no suspicious findings at the site of the patient's symptoms (BI-RADS 2). Her most recent bilateral mammogram from 03/11/2023 revealed increased size of the breast cyst on the left side and no mammographic evidence of malignancy (BI-RADS 2). She is scheduled for a follow-up mammogram on 01/15/2024 (bilateral). Today she reports a palpable mass located in the left breast at the upper outer quadrant which causes tenderness when palpated. She is very concerned because her previous cancer felt very similar to this and would prefer to have it removed. She denies any breast symptoms in the right side at this time. [facility] Medical History History of COVID-19 Sleep apnea History of radiation therapy Stroke Aneurysm NSTEMI (non-ST elevated myocardial infarction) Gout Hypertension Hypothyroidism Ductal carcinoma in situ (DCIS) of right breast Surgical History History of removal of cyst History of breast lump/mass excision (07/09/22) Status post cardiac catheterization History of right breast biopsy (09/08/19) History of endometrial ablation (2010) History of bilateral tubal ligation (2003) History of lumpectomy of right breast (10/07/19) Family History Daughter Thyroid cancer Paternal Grandmother Breast cancer Thyroid cancer Diabetes Sister Diabetes HTN (hypertension) Sister HTN (hypertension) Sister HTN (hypertension) Sister HTN (hypertension) Sister HTN (hypertension) Father Brain tumor Mother Heart attack Social History Household Members: Children Household Members Other:: daughter Housing: Apartment Are you a primary rn primary care to a significant other at home: No Do you presently have visiting nurse or other home services: No Alcohol intake: former Year quit: 2020 Patient Tobacco Use Status: Never used Tobacco Tobacco use type: Cigarette Years Smoked: 10 +/- service: No Current occupational status: employed Current occupation: rt handed Review of Systems Const All systems reviewed & are unremarkable except as noted in HPI and below Physical Exam Const General: no acute distress and well developed Nutritional Appearance: well nourished Orientation/consciousness: patient oriented x3 Limitations: no limitations HEENT Head: Yes normocephalic and Yes atraumatic Ears: hearing grossly normal bilaterally Chest Chest/axillae images: 2 1. Palpable mass located in the upper outer quadrant felt best with arm raised up overhead. Lesion measures approximately 1.5 cm in diameter and is mobile within the breast tissue. Resp Effort & Inspection: normal respiratory effort, no audible wheezes, no cough and no respiratory distress Cardio Jugular venous distension: no JVD GI Inspection: Yes normal to inspection Skin Other: Warm, dry, no rash Neuro General: patient oriented x3 Extrem Other: No upper extremity lymphedema General: Yes no clubbing, cyanosis or edema Assessment & Plan Assessment & Plan (1) Left breast mass: Comment: 02:00 o'clock Code(s): N63.20 - Unspecified lump in the left breast, unspecified quadrant Category: Medical Qualifiers: Breast mass location: upper outer quadrant Qualified Code(s): N63.21 - Unspecified lump in the left breast, upper outer quadrant Plan 48-year-old female patient with a previous history of DCIS right breast now presenting with a new palpable mass located in the upper outer quadrant of the left breast which is causing discomfort. Patient is very anxious about this mass as it feels very similar to her previous cancer on the right. On examination I can confirm a palpable mass which is mobile within the breast tissue measuring approximately 1.5 cm in diameter. I recommended a left breast lumpectomy and after discussion of the procedure, risks, and alternatives, she consents to the procedure. Coding Level of Care Code Est Pt Level 4 (54543) Diagnoses Mass of upper outer quadrant of left breast N63.21 Breast mass location: upper outer quadrant
[2024-01-02 09:28] VITALS: BP 150/72; PULSE 76; BMI 22.3
== END 2024-01-02 09:36 | disposition home or self-care (01) ==
LOC: HO.HGS 09:20
PROVIDERS: PCP General Practice; Visit Provider Surgery
DX: N63.21 Unspecified lump in the left breast, upper outer quadrant (principal)
CPT/HCPCS: 99214

== ENCOUNTER → 2024-01-02 09:20 | Outpatient (BNVA) | payer MEDICAID, SELFPAY | PROVIDERS: PCP General Practice; Visit Provider Surgery | DX: N63.21 Unspecified lump in the left breast, upper outer quadrant (principal); Z85.3 Personal history of malignant neoplasm of breast | CPT/HCPCS: 99212 ==

== ENCOUNTER 2024-01-20 14:58 | Outpatient (REF) | payer MEDICAID, SELFPAY | END 2024-01-20 14:59 | disposition home or self-care (01) | LOC: HO.MAMMO 14:58 | PROVIDERS: Absent Provider Surgery; PCP General Practice; Visit Provider General Practice | DX: Z13.89 Encounter for screening for other disorder (principal) ==

== ENCOUNTER 2024-02-12 06:56 | Day surgery (SDC) | payer MEDICAID, SELFPAY ==
[2024-02-03 12:47] VITALS: BMI 22.9
--- NOTE | 2024-02-04 13:32 | HO.ANESPROP2 ---
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 [address] angio showed complete occlusion of aneurysm with wide patency of stent. No further neuroendovascular f/u required per 08/2022 office visit note. NSTEMI/Coronary artery dissection 2020. Follows [facility] [place] [facility]. Stable at 11/2023 office visit. Recent ETT ok. OK to proceed with surgery per workload message. 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, small (Acute) Fibromuscular dysplasia (Acute) Palpitations (Acute) Gait disorder (Acute) Lumbar radiculopathy (Acute) Dense breast tissue on mammogram (Acute) Abnormal magnetic resonance imaging of left breast (Acute) Left breast mass (Acute) Bilateral mastodynia (Acute) Cyst of left breast (Acute) Sleep apnea (Acute) Hypertension (Acute) NSTEMI (non-ST elevated myocardial infarction) (Acute) Status post cardiac catheterization (Acute) 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) Past Medical History Medical History History of COVID-19 Sleep apnea History of radiation therapy Stroke Aneurysm NSTEMI (non-ST elevated myocardial infarction) Gout Hypertension Hypothyroidism Ductal carcinoma in situ (DCIS) of right breast Family History Family History Daughter Thyroid cancer Paternal Grandmother Breast cancer Thyroid cancer Diabetes Sister Diabetes HTN (hypertension) Sister HTN (hypertension) Sister HTN (hypertension) Sister HTN (hypertension) Sister HTN (hypertension) Father Brain tumor Mother Heart attack Family history of problems with anesthesia: No Surgical History Surgical History History of removal of cyst History of breast lump/mass excision (07/09/22) Status post cardiac catheterization History of right breast biopsy (09/08/19) History of endometrial ablation (2010) History of bilateral tubal ligation (2003) History of lumpectomy of right breast (10/07/19) History of Problems with Anesthesia: No Social History Social History Household Members: Other Household Members Other:: daughter Housing: Apartment Are you a primary director of home care hospice to a significant other at home: No Do you presently have visiting nurse or other home services: No Alcohol intake: former Year quit: 2020 Patient Tobacco Use Status: Former Tobacco user Tobacco use type: Cigarette Years Smoked: 10 +/- Smoked in Last 30 Days: No Use of substances other than those prescribed or required for medical reasons: No Have you been hit, kicked, punched, or otherwise hurt by someone within the past year? If so, by whom?: No Are you DNR?: No Advance Directives: No Advance Directives Information Provided: Yes Advance Directives on File: No Recently lost weight without trying: No Nutrition Risks: No Nutritional Risk Patient : No FDLMP: 2010 : No Poor oral hygiene: No service: No Current occupational status: employed Current occupation: rt handed Meds Allergies Allergy/AdvReac Type Severity Reaction Status Date / Time Gadolinium-Containing Allergy Severe Rash Verified 02/12/24 07:45 Contrast Medi Iodinated Contrast Media Allergy Severe Rash Verified 02/12/24 07:45 [IV Contrast Dye] Home Medications ?Medication ?Instructions ?Recorded ?Confirmed ?Last Taken ?Type levothyroxine 125 mcg tablet 125 mcg PO DAILY 07/25/20 02/03/24 Unknown History atorvastatin 40 mg tablet 40 mg PO BEDTIME 01/02/21 02/03/24 Unknown History mirtazapine 30 mg tablet 30 mg PO DAILY 01/02/21 02/03/24 Unknown History topiramate 100 mg tablet 100 mg PO BEDTIME 05/31/21 02/03/24 Unknown History gabapentin 100 mg capsule 100 mg PO DAILY PRN Pain 07/26/21 02/03/24 Unknown History bupropion HCl 150 mg tablet,12 hr 150 mg PO DAILY 04/25/22 02/03/24 Unknown History sustained-release hydroxyzine pamoate 25 mg capsule 25 mg PO BEDTIME PRN insomnia 04/25/22 02/03/24 Unknown History amlodipine 10 mg tablet 10 mg PO DAILY blood pressure 12/14/22 02/03/24 Unknown History ibuprofen 800 mg tablet 800 mg PO BID PRN Pain 09/30/23 02/03/24 Unknown History Exam Height,Weight and Vital Signs: Height 5 ft 2 in Weight 56.699 kg Pertinent Lab Results Pertinent Lab Results: Laboratory Tests 05/22/23 16:41 WBC 3.9 L Hgb 14.3 Hct 41.6 Plt Count 148 L Sodium 138 Potassium 3.7 Chloride 108 Carbon Dioxide 23 BUN 7 L Creatinine 0.66 Narrative Narrative: EKG 05/2023 Vent. Rate : 076 BPM Atrial Rate : 076 BPM P-R Int : 136 ms QRS Dur : 070 ms QT Int : 374 ms P-R-T Axes : 027 035 018 degrees QTc Int : 420 ms Normal sinus rhythm Septal infarct (cited on or before 21-SEP-2021) Abnormal ECG When compared with ECG of 22-DEC-2021 13:18, No significant change was found Exercise Stress 08/2023 Protocol: SHERI Max HR: 148 BPM 87% of Pred: 170 BPM Max BP: 140/080 mmHG Max Work Load: 11.3 METS Exercise stress test exercise 9 min 45 sec of Sheri protocol achieving 87% MPHR and 11.3 METS, without anginal symptoms, with isolated PVCs, with normotensive response to exercise, with nondiagnoisitic EKGs. Test reviewed with Dr. Forbes ECHO 2021 Conclusions: - Normal left ventricular size, thickness, systolic function, and wall motion. - Normal right ventricular cavity size and systolic function. - There is mild aortic valve regurgitation. Assessment and Plan Assessment Anesthesia Assessment: Chart Reviewed Final Anesthetic Review Family History of Problems with Anesthesia: No History of Problems with Anesthesia: No Documented by User: Kusum Paz MD 02/12/24 08:21 [facility] Past Medical History Medical History History of COVID-19 Sleep apnea History of radiation therapy Stroke Aneurysm NSTEMI (non-ST elevated myocardial infarction) Gout Hypertension Hypothyroidism Ductal carcinoma in situ (DCIS) of right breast Family History Family History Daughter Thyroid cancer Paternal Grandmother Breast cancer Thyroid cancer Diabetes Sister Diabetes HTN (hypertension) Sister HTN (hypertension) Sister HTN (hypertension) Sister HTN (hypertension) Sister HTN (hypertension) Father Brain tumor Mother Heart attack Surgical History Surgical History History of removal of cyst History of breast lump/mass excision (07/09/22) Status post cardiac catheterization History of right breast biopsy (09/08/19) History of endometrial ablation (2010) History of bilateral tubal ligation (2003) History of lumpectomy of right breast (10/07/19) Social History Social History Household Members: Other Household Members Other:: daughter Housing: Apartment Are you a primary director of home care hospice to a significant other at home: No Do you presently have visiting nurse or other home services: No Alcohol intake: former Year quit: 2020 Patient Tobacco Use Status: Former Tobacco user Tobacco use type: Cigarette Years Smoked: 10 +/- Smoked in Last 30 Days: No Use of substances other than those prescribed or required for medical reasons: No Have you been hit, kicked, punched, or otherwise hurt by someone within the past year? If so, by whom?: No Are you DNR?: No Advance Directives: No Advance Directives Information Provided: Yes Advance Directives on File: No Recently lost weight without trying: No Nutrition Risks: No Nutritional Risk Patient : No FDLMP: 2010 : No Poor oral hygiene: No service: No Current occupational status: employed Current occupation: rt handed Meds Allergies Allergy/AdvReac Type Severity Reaction Status Date / Time Gadolinium-Containing Allergy Severe Rash Verified 02/12/24 07:45 Contrast Medi Iodinated Contrast Media Allergy Severe Rash Verified 02/12/24 07:45 [IV Contrast Dye] Home Medications ?Medication ?Instructions ?Recorded ?Confirmed ?Last Taken ?Type levothyroxine 125 mcg tablet 125 mcg PO DAILY 07/25/20 02/03/24 Unknown History atorvastatin 40 mg tablet 40 mg PO BEDTIME 01/02/21 02/03/24 Unknown History mirtazapine 30 mg tablet 30 mg PO DAILY 01/02/21 02/03/24 Unknown History topiramate 100 mg tablet 100 mg PO BEDTIME 05/31/21 02/03/24 Unknown History gabapentin 100 mg capsule 100 mg PO DAILY PRN Pain 07/26/21 02/03/24 Unknown History bupropion HCl 150 mg tablet,12 hr 150 mg PO DAILY 04/25/22 02/03/24 Unknown History sustained-release hydroxyzine pamoate 25 mg capsule 25 mg PO BEDTIME PRN insomnia 04/25/22 02/03/24 Unknown History amlodipine 10 mg tablet 10 mg PO DAILY blood pressure 12/14/22 02/03/24 Unknown History ibuprofen 800 mg tablet 800 mg PO BID PRN Pain 09/30/23 02/03/24 Unknown History Exam Airway Mallampati Class: III TM Dist: >3cm Neck ROM: Full Denture: Upper Loose/Missing/Broken Teeth: Yes and Upper Heart: RRR Lungs: CTA Assessment and Plan Assessment Anesthesia Assessment: Anesthesia Plan Discussed Final Anesthetic Review NPO: Yes ASA Class: III Final Preanesthetic Review: Meds/Allgs Chart Reviewed, Consent Obtained/Reviewed and Anes Risks/Benef Reviewed Patient Risk: Intermediate Procedure Risk: Low Anesthetic Plan Anesthetic Plan: GA Disposition: Standard PACU
[2024-02-12 07:31] VITALS: BP 139/56; PULSE 64; RESP 15; TEMP 36.7; O2SAT 99
[2024-02-12 07:40] VITALS: BMI 21.9
[2024-02-12] MEDS: Lactated Ringers 1,000 ML 100 ML IVCONT (07:41)
--- NOTE | 2024-02-12 08:20 | MHC.SHP ---
Pre-Procedural Eval Section A - 24 Hr Update-Section A only Date of Service: 02/12/24 The patient is an INPATIENT: No Changes since office visit: Yes Patient answered all questions; No Cold of Flu in the past 2 weeks, No New Medical Problems and No Changes in Medication The patient has been examined within 24 hours of the surgical procedure. The History & Physical has been completed within 30 days and I have reviewed it.: No Section B - Complete if H&P > 30 days Chief Complaint: Unspecified lump in the left breast, upper outer Details of Present Illness: No change in symptoms since previous evaluation. Relevant Family History (Specify if Yes): No Relevant Social History: None Present Medications: see Short Stay Collaborative assessment Medical History: Significant History (Previous right breast cancer) History of Previous Operations: Relevant previous surgery/procedure and date(s) (Right breast lumpectomy) Allergies: Allergies Allergy/AdvReac Type Severity Reaction Status Date / Time Gadolinium-Containing Allergy Severe Rash Verified 02/12/24 07:45 Contrast Medi Iodinated Contrast Media Allergy Severe Rash Verified 02/12/24 07:45 [IV Contrast Dye] Review of Systems Sugical H&P ROS: Negative: Constitution, Cardiovascular, Respiratory and Gastrointestinal Exam Surgical H&P Exam: Normal: HEENT, Normal: Heart, Normal: Lungs, Normal: Abdomen and Normal: Skin Plan Diagnosis/Plan: Unchanged I have reviewed the history and physical and performed a pertinent physical examination on my patient. No changes have occurred unless specified. Time Spent With Patient Time: Total time managing care of this patient today ____ minutes.
--- NOTE | 2024-02-12 09:15 | P.OP_ITS ---
Operative Note Operative Note Date of Service: 02/12/24 Narrative: Preoperative diagnosis: Left breast mass Postoperative diagnosis: Same Procedure: Lumpectomy left breast Surgeon: Tony Osuna MD Regulatory Agency Director: Aparna Shukla PA-C Anesthesia: General LMA Indications for procedure: 48-year-old female patient with a prior history of DCIS of the right breast and prior lumpectomy now presenting with a palpable mass in the left breast at the upper outer quadrant noted by the patient. The patient reports pain associated with the lump. On examination there is indeed a palpable area of thickened breast tissue which was not identified on mammogram. Patient has requested excision of this palpable mass given her prior history of breast cancer. Operative findings: Area of thickened breast tissue in the upper outer quadrant which appeared consistent with fibrocystic change. Specimen marked with a long suture on the lateral margin, short suture on the superior margin and looped suture in the posterior margin. Specimen: Left breast lumpectomy Estimated blood loss: Less than 2 mL Complications: None Procedure details: Patient was brought to the OR and placed in a supine position. After administering general anesthesia the patient's left breast was prepped with ChloraPrep and draped in a sterile fashion. A surgical time-out was called the consent confirmed. Patient received preoperative antibiotics and Venodyne boots were in place. Local anesthesia was infiltrated over the palpable mass a curvilinear fashion. Incision was then made over the palpable mass and carried out through subcutaneous tissue. Superior and inferior skin flaps were then created using electrocautery. Allis clamp was used to grasp the palpable mass. A core of tissue surrounding this palpable mass was then excised. Specimen was then marked as noted above the margins. The specimen was passed off the table and sent to pathology for further examination. After assuring adequate hemostasis the incision was irrigated with saline solution and suctioned dry. Deep breast tissue was reapproximated using interrupted 3-0 Polysorb sutures. Dermis was reapproximated using interrupted 3-0 Polysorb sutures. Skin was closed using a running subcuticular 4-0 Polysorb suture. Steri-Strips, 2 x 2 gauze and Tegaderm were then applied. The patient tolerated the procedure well. Sponge, instrument, and needle counts reported as correct. Patient was transferred to PACU in stable condition.
[2024-02-12 09:28] VITALS: BP 144/76; PULSE 61; RESP 12; TEMP 36.3; O2SAT 100
[2024-02-12 09:30] VITALS: BP 151/66; PULSE 58; RESP 14; O2SAT 100
[2024-02-12 09:35] VITALS: BP 139/72; PULSE 58; RESP 14; O2SAT 100
[2024-02-12 09:40] VITALS: BP 141/75; PULSE 57; RESP 14; O2SAT 100
== END 2024-02-12 10:18 | disposition home or self-care (01) ==
PROVIDERS: PCP General Practice; Visit Provider Surgery
PROC: (CPT 19301; principal; 2024-02-12 08:50)
DX: N63.21 Unspecified lump in the left breast, upper outer quadrant (principal); N64.4 Mastodynia; Z85.3 Personal history of malignant neoplasm of breast; Z17.1 Estrogen receptor negative status [ER-]; Z92.3 Personal history of irradiation; N60.82 Other benign mammary dysplasias of left breast; N60.12 Diffuse cystic mastopathy of left breast; N64.89 Other specified disorders of breast; I10 Essential (primary) hypertension; I25.2 Old myocardial infarction; G47.33 Obstructive sleep apnea (adult) (pediatric); Z91.041 Radiographic dye allergy status; Z87.891 Personal history of nicotine dependence; Z98.890 Other specified postprocedural states
CPT/HCPCS: 19301; 88307; J0690; J1100; J2003; J2250; J2405; J2704; J2795; J3010

== ENCOUNTER → 2024-02-12 06:56 | Outpatient (BNV) | payer MEDICAID, SELFPAY | PROVIDERS: PCP General Practice; Visit Provider Surgery | DX: N63.21 Unspecified lump in the left breast, upper outer quadrant (principal) | CPT/HCPCS: 19301 ==

== ENCOUNTER 2024-02-17 14:18 | Outpatient (AMB) | payer MEDICAID, SELFPAY ==
[2024-02-17 14:29] VITALS: BP 120/64; PULSE 81; BMI 22.2
--- NOTE | 2024-02-17 14:29 | A.OFFVIS_ITS ---
Vital Signs 02/17/24 14:29 Height 5 ft 2 in Weight 121 lb 4.068 oz BMI 22.2 BP 120/64 Blood Pressure Location Lt brachial Position Sitting Pulse 81 Pulse Source Pulse Oximeter Intake Visit Reasons: 2+ mth f/up renal us Intake Note: 2 mth f/up renal us/ clearance for upper/colonoscopy 02/19 Dealership General Manager Required: No Accompanied by: Self / Same As Patient Allergies Gadolinium-Containing Contrast Medi Allergy (Severe, Verified 02/12/24 07:45) Rash Iodinated Contrast Media [IV Contrast Dye] Allergy (Severe, Verified 02/12/24 07:45) Rash Medication List - Last Reconciled 02/17/24 by Jose A Gaona MD amlodipine 10 mg PO DAILY aspirin 81 mg PO DAILY atorvastatin 40 mg PO BEDTIME bisacodyl (Dulcolax (bisacodyl)) 20 mg (4 x 5 mg) PO ONCE PRN 1 day bisacodyl (Dulcolax (bisacodyl)) 20 mg (4 x 5 mg) PO ONCE 1 day bupropion HCl SR 150 mg PO DAILY gabapentin 100 mg PO DAILY PRN hydroxyzine pamoate 25 mg PO BEDTIME PRN ibuprofen 800 mg PO BID PRN levothyroxine 125 mcg PO DAILY methylcellulose (laxative) (Citrucel) 500 mg PO TID metoprolol succinate ER 100 mg PO BID 90 days mirtazapine 30 mg PO DAILY oxycodone 5 mg PO Q6H PRN polyethylene glycol 3350 (Miralax) 238 grams PO ONCE PRN 1 day polyethylene glycol 3350 (Miralax) 238 grams PO ONCE 1 day topiramate 100 mg PO BEDTIME valsartan 160 mg PO DAILY HPI Comments Details: Very pleasant 48-year-old female here for follow-up. She was seen in December 2020 when she presented to [facility] with chest pain and ruled in for NSTEMI. 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 She was conservatively managed. She also had cerebral aneurysm which was treated with pipeline Shield stent. She had minor stroke after that. On last visit she was complaining of palpitations. She was referred for 3 Holter monitor. This showed sinus rhythm with average heart rate 2 beats per minute, no significant pauses or bradycardia noted. 159 PVCs were noted. 04/25/22: She is here for follow-up. She is saying her blood pressure was fluctuating up and down had her amlodipine was increased to 10 mg daily. Her blood pressure in the office currently stable. She is denying any chest discomfort or shortness of breath currently. She is complaining of palpitations. 12/05/22: She is here for follow-up. She was seen in August by Teresa. She is complaining her blood pressure has been rising and at times she has noticed her blood pressure to be as high as 180s. She checks with her own automated blood pressure cuff at home. She has been taking amlodipine 10 mg and metoprolol succinate 50 mg twice a day. She also gets some sharp left-sided chest pains. She is describing stabbing sensation which also happens when she has elevated bl ood pressure. She has background of fibromuscular dysplasia. 01/30/23: Returns for follow-up. On last visit we added valsartan 80 mg once a day but it appears her pharmacy did not added to her medication box. She is only taking metoprolol and amlodipine currently. Her blood pressure in the office is 144/86. At home she had blood pressures as high as 180s. She said she had some visual changes and was not feeling well and at that time her blood pressure was checked by a nurse and blood pressure was 180s systolic. This improved with rest. Denying any other symptoms. 04/15/23: She is here for f/u. She has been feeling fine. No chest pain or shortness of breath. Occasionally when she is stressed she gets palpitations lasting for few seconds. Today after checking her blood pressure the RN told her that her blood pressure was good and even that cause some palpitations. She is saying that she gets 7 she is excited or under stress. No prolonged episodes. 07/31/23: She returns for follow-up. She has been doing well. Occasional palpitations. 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 She has no chest pains or any other symptoms. We discussed about her underlying medical issues including SCAD in the past. We have decided do an exercise stress test which we will arrange. 12/04/23: She is here for f/u. BP is high. No CP or SOB. 02/17/2024: She is here for follow-up. Blood pressure is well controlled. No chest pain or shortness of breath. She just underwent breast surgery. She is due to get a screening colonoscopy next week. She is asking whether she can undergo anesthesia soon after doing breast surgery recently. I have advised her that this is up to her and if she feels up to it she should consider going for colonoscopy-this is elective procedure. [facility] Medical History History of COVID-19 Sleep apnea History of radiation therapy Stroke Aneurysm NSTEMI (non-ST elevated myocardial infarction) Gout Hypertension Hypothyroidism Ductal carcinoma in situ (DCIS) of right breast Surgical History (Reviewed 02/17/24 @ 14:34 by Renuka Branham [facility]) History of lumpectomy of left breast (02/12/24) History of removal of cyst History of breast lump/mass excision (07/09/22) Status post cardiac catheterization History of right breast biopsy (09/08/19) History of endometrial ablation (2010) History of bilateral tubal ligation (2003) History of lumpectomy of right breast (10/07/19) Family History (Reviewed 02/17/24 @ 14:34 by Renuka Branham [facility]) Daughter Thyroid cancer Paternal Grandmother Breast cancer Thyroid cancer Diabetes Sister Diabetes HTN (hypertension) Sister HTN (hypertension) Sister HTN (hypertension) Sister HTN (hypertension) Sister HTN (hypertension) Father Brain tumor Mother Heart attack Social History (Reviewed 02/17/24 @ 14:34 by Renuka Branham [facility]) Household Members: Other Household Members Other:: daughter Housing: Apartment Are you a primary manager urgent care to a significant other at home: No Do you presently have visiting nurse or other home services: No 75 years or older and lives alone: No Alcohol intake: former Year quit: 2020 Patient Tobacco Use Status: Former Tobacco user Tobacco use type: Cigarette Years Smoked: 10 +/- service: No Current occupational status: employed Current occupation: rt handed Review of Systems Const Denies chills, Denies fatigue, Denies fever(s), Denies frequent falls, Denies weakness, Denies weight gain and Denies weight loss ENT Denies dizziness Card Denies chest pain, Denies leg edema, Denies lightheadedness, Denies palpitations, Denies dyspnea and Denies dyspnea on exertion Resp Denies cough, Denies dyspnea and Denies dyspnea on exertion GI Denies hematochezia Musc Denies abnormal gait, Denies muscle weakness, Denies numbness, Denies radiating pain into limb and Denies tingling Neuro Denies abnormal gait, Denies dizziness, Denies frequent falls, Denies numbness, Denies tingling and Denies weakness Endo Denies fatigue and Denies palpitations Physical Exam Vital Signs: Last Vital Signs Pulse 81 02/17/24 14:29 BP 120/64 02/17/24 14:29 BMI result Body Mass Index 22.2 GENERAL APPEARANCE: in no acute distress, pleasant. NECK: no carotid bruit, no jugular venous distention. SKIN: no suspicious lesions, warm and dry. HEART: no murmurs, regular rate and rhythm. LUNGS: clear to auscultation bilaterally. ABDOMEN: soft, nontender. EXTREMITIES: no edema. PERIPHERAL PULSES: equal. NEUROLOGIC: No gross deficits, AAO X 3 Assessment & Plan Assessment & Plan (1) Hypertension: Code(s): I10 - Essential (primary) hypertension Category: Medical (2) Fibromuscular dysplasia: Code(s): I77.3 - Arterial fibromuscular dysplasia Category: Medical (3) Coronary artery dissection: Code(s): I25.42 - Coronary artery dissection Category: Medical Plan Very pleasant 48 year female who is here for follow-up. 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 She has done well since then and has been clinically stable. She is on beta-shyam and has been tolerating medications well. Blood pressure is well controlled at this stage. She will continue same medications for now. She can proceed colonoscopy with intermediate risk for pe rioperative complications. Follow-up in 6 months. Thank you for allowing me to participate in the care of your patient. Please feel free to contact me if you have any questions. Coding Level of Care Code Est Pt Level 4 (94207) Diagnoses Hypertension I10 Fibromuscular dysplasia I77.3 Coronary artery dissection I25.42
== END 2024-02-17 15:05 | disposition home or self-care (01) ==
PROVIDERS: PCP General Practice; Referring Provider General Practice; Visit Provider Internal Medicine Cardiovascular Disease
DX: I10 Essential (primary) hypertension (principal); I77.3 Arterial fibromuscular dysplasia; I25.42 Coronary artery dissection
CPT/HCPCS: 99214

== ENCOUNTER → 2024-02-17 14:18 | Outpatient (BNVA) | payer MEDICAID, SELFPAY | PROVIDERS: PCP General Practice; Visit Provider Internal Medicine Cardiovascular Disease | DX: I25.42 Coronary artery dissection (principal); I77.3 Arterial fibromuscular dysplasia; I10 Essential (primary) hypertension | CPT/HCPCS: 99212 ==

== ENCOUNTER 2024-02-20 06:50 | Day surgery (SDC) | payer MEDICAID, SELFPAY ==
[2024-02-18 13:02] VITALS: BMI 22.2
[2024-02-18 13:10] VITALS: BMI 22.2
--- NOTE | 2024-02-19 10:08 | P.CONAN_ITS ---
Documented by User: Daisy Mir NP 02/19/24 10:09 HPI - Anesthesia Eval Consult details Narrative: 48yo F for Upper Endoscopy and Colonoscopy s/p Left Breast Lumpectomy, 02/12/24 with GA-LMA 4 Fibromuscular Dysplasia Carotid aneurysm s/p pipeline shield stent 07/2021. [address] angio showed complete occlusion of aneurysm with wide patency of stent. No further neuroendovascular f/u required per 08/2022 office visit note. NSTEMI/Coronary artery dissection 2020. Follows [facility] [place] [facility]. Stable at 11/2023 office visit. Recent ETT ok. OK to proceed with surgery per workload message. 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, small (Acute) Fibromuscular dysplasia (Acute) Palpitations (Acute) Gait disorder (Acute) Lumbar radiculopathy (Acute) Dense breast tissue on mammogram (Acute) Abnormal magnetic resonance imaging of left breast (Acute) Left breast mass (Acute) Bilateral mastodynia (Acute) Cyst of left breast (Acute) Sleep apnea (Acute) Hypertension (Acute) NSTEMI (non-ST elevated myocardial infarction) (Acute) Status post cardiac catheterization (Acute) 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) Past Medical History Medical History Fibromuscular dysplasia History of COVID-19 Sleep apnea History of radiation therapy Stroke Aneurysm NSTEMI (non-ST elevated myocardial infarction) Gout Hypertension Hypothyroidism Ductal carcinoma in situ (DCIS) of right breast Family History Family History Daughter Thyroid cancer Paternal Grandmother Breast cancer Thyroid cancer Diabetes Sister Diabetes HTN (hypertension) Sister HTN (hypertension) Sister HTN (hypertension) Sister HTN (hypertension) Sister HTN (hypertension) Father Brain tumor Mother Heart attack Family history of problems with anesthesia: No Surgical History Surgical History History of lumpectomy of left breast (02/12/24) History of removal of cyst History of breast lump/mass excision (07/09/22) Status post cardiac catheterization History of right breast biopsy (09/08/19) History of endometrial ablation (2010) History of bilateral tubal ligation (2003) History of lumpectomy of right breast (10/07/19) History of Problems with Anesthesia: No Social History Social History Household Members: Other Household Members Other:: daughter Housing: Apartment Are you a primary medical care evaluation specialist to a significant other at home: No Do you presently have visiting nurse or other home services: No Alcohol intake: former Year quit: 2020 Patient Tobacco Use Status: Former Tobacco user Tobacco use type: Cigarette Years Smoked: 10 +/- Smoked in Last 30 Days: No Use of substances other than those prescribed or required for medical reasons: No Have you been hit, kicked, punched, or otherwise hurt by someone within the past year? If so, by whom?: No Are you DNR?: No Advance Directives: No Advance Directives Information Provided: Yes Advance Directives on File: No Recently lost weight without trying: No Nutrition Risks: No Nutritional Risk Patient : No FDLMP: 2010 service: No Current occupational status: employed Current occupation: rt handed Meds Allergies Allergy/AdvReac Type Severity Reaction Status Date / Time Gadolinium-Containing Allergy Severe Rash Verified 02/12/24 07:45 Contrast Medi Iodinated Contrast Media Allergy Severe Rash Verified 02/12/24 07:45 [IV Contrast Dye] Home Medications ?Medication ?Instructions ?Recorded ?Confirmed ?Last Taken ?Type levothyroxine 125 mcg tablet 125 mcg PO DAILY 07/25/20 02/18/24 Unknown History atorvastatin 40 mg tablet 40 mg PO BEDTIME 01/02/21 02/18/24 Unknown History mirtazapine 30 mg tablet 30 mg PO DAILY 01/02/21 02/18/24 Unknown History topiramate 100 mg tablet 100 mg PO BEDTIME 05/31/21 02/18/24 Unknown History gabapentin 100 mg capsule 100 mg PO DAILY PRN Pain 07/26/21 02/18/24 Unknown History bupropion HCl 150 mg tablet,12 hr 150 mg PO DAILY 04/25/22 02/18/24 Unknown History sustained-release hydroxyzine pamoate 25 mg capsule 25 mg PO BEDTIME PRN insomnia 04/25/22 02/18/24 Unknown History amlodipine 10 mg tablet 10 mg PO DAILY blood pressure 12/14/22 02/18/24 Unknown History Exam Height,Weight and Vital Signs: Height 5 ft 2 in Weight 54.998 kg Assessment and Plan Assessment Anesthesia Assessment: Chart Reviewed Final Anesthetic Review Family History of Problems with Anesthesia: No History of Problems with Anesthesia: No Documented by User: Shani Mccauley MD 02/20/24 07:39 [facility] Past Medical History Medical History Fibromuscular dysplasia History of COVID-19 Sleep apnea History of radiation therapy Stroke Aneurysm NSTEMI (non-ST elevated myocardial infarction) Gout Hypertension Hypothyroidism Ductal carcinoma in situ (DCIS) of right breast Family History Family History Daughter Thyroid cancer Paternal Grandmother Breast cancer Thyroid cancer Diabetes Sister Diabetes HTN (hypertension) Sister HTN (hypertension) Sister HTN (hypertension) Sister HTN (hypertension) Sister HTN (hypertension) Father Brain tumor Mother Heart attack Surgical History Surgical History History of lumpectomy of left breast (02/12/24) History of removal of cyst History of breast lump/mass excision (07/09/22) Status post cardiac catheterization History of right breast biopsy (09/08/19) History of endometrial ablation (2010) History of bilateral tubal ligation (2003) History of lumpectomy of right breast (10/07/19) Social History Social History Household Members: Other Household Members Other:: daughter Housing: Apartment Are you a primary medical care evaluation specialist to a significant other at home: No Do you presently have visiting nurse or other home services: No Alcohol intake: former Year quit: 2020 Patient Tobacco Use Status: Former Tobacco user Tobacco use type: Cigarette Years Smoked: 10 +/- Smoked in Last 30 Days: No Use of substances other than those prescribed or required for medical reasons: No Have you been hit, kicked, punched, or otherwise hurt by someone within the past year? If so, by whom?: No Are you DNR?: No Advance Directives: No Advance Directives Information Provided: Yes Advance Directives on File: No Recently lost weight without trying: No Nutrition Risks: No Nutritional Risk Patient : No FDLMP: 2010 service: No Current occupational status: employed Current occupation: rt handed Meds Allergies Allergy/AdvReac Type Severity Reaction Status Date / Time Gadolinium-Containing Allergy Severe Rash Verified 02/12/24 07:45 Contrast Medi Iodinated Contrast Media Allergy Severe Rash Verified 02/12/24 07:45 [IV Contrast Dye] Home Medications ?Medication ?Instructions ?Recorded ?Confirmed ?Last Taken ?Type levothyroxine 125 mcg tablet 125 mcg PO DAILY 07/25/20 02/18/24 Unknown History atorvastatin 40 mg tablet 40 mg PO BEDTIME 01/02/21 02/18/24 Unknown History mirtazapine 30 mg tablet 30 mg PO DAILY 01/02/21 02/18/24 Unknown History topiramate 100 mg tablet 100 mg PO BEDTIME 05/31/21 02/18/24 Unknown History gabapentin 100 mg capsule 100 mg PO DAILY PRN Pain 07/26/21 02/18/24 Unknown History bupropion HCl 150 mg tablet,12 hr 150 mg PO DAILY 04/25/22 02/18/24 Unknown History sustained-release hydroxyzine pamoate 25 mg capsule 25 mg PO BEDTIME PRN insomnia 04/25/22 02/18/24 Unknown History amlodipine 10 mg tablet 10 mg PO DAILY blood pressure 12/14/22 02/18/24 Unknown History Exam Airway Mallampati Class: II TM Dist: >3cm Neck ROM: Full Heart: rrr Lungs: cta Assessment and Plan Assessment Anesthesia Assessment: Anesthesia Plan Discussed Final Anesthetic Review ASA Class: III Final Preanesthetic Review: No Changes in Pt Med Stat, Meds/Allgs Chart Reviewed, Consent Obtained/Reviewed and Anes Risks/Benef Reviewed Patient Risk: Intermediate Procedure Risk: Low Anesthetic Plan Anesthetic Plan: MAC: Disposition: Standard PACU
[2024-02-20 06:55] VITALS: BP 137/58; PULSE 89; RESP 20; TEMP 36.9; O2SAT 98; BMI 22.2
[2024-02-20] MEDS: 0.9 % Sodium Chloride 500 ML 50 ML IV (07:23)
--- NOTE | 2024-02-20 08:31 | P.HPSUR_ITS ---
Pre-Procedural Eval Section A - 24 Hr Update-Section A only Date of Service: 02/20/24 Section B - Complete if H&P > 30 days Chief Complaint: rectal bleeding,constipation Relevant Family History (Specify if Yes): No Relevant Social History: None Present Medications: see Short Stay Collaborative assessment Medical History: Significant History (Fibromuscular dysplasia History of COVID- 19 Sleep apnea History of radiation therapy Stroke Aneurysm NSTEMI (non-ST elevated myocardial infarction) Gout Hypertension Hypothyroidism Ductal carcinoma in situ (DCIS) of right breast) History of Previous Operations: Relevant previous surgery/procedure and date(s) (History of lumpectomy of left breast (02/12/24) History of removal of cyst History of breast lump/mass excision (07/09/22) Status post cardiac catheterization History of right breast biopsy (09/08/19) History of endometrial ablation (2010) History of bilateral tubal ligation (2003) History of lumpec) Allergies: Allergies Allergy/AdvReac Type Severity Reaction Status Date / Time Gadolinium-Containing Allergy Severe Rash Verified 02/12/24 07:45 Contrast Medi Iodinated Contrast Media Allergy Severe Rash Verified 02/12/24 07:45 [IV Contrast Dye] Review of Systems Sugical H&P ROS: Negative: Constitution, Cardiovascular, Respiratory, Neurological, Psychiatric, Hem-Onc, Allergic/Immunologic, Gastrointestinal, Genitourinary, Musculoskeletal, Integumentary, Endocrine and Eyes/Ears/Nose/Thr oat Exam Surgical H&P Exam: Normal: HEENT, Normal: Heart, Normal: Lungs, Normal: Extremities, Normal: Abdomen, Normal: Skin and Normal: Neurological Plan Diagnosis/Plan: Unchanged I have reviewed the history and physical and performed a pertinent physical examination on my patient. No changes have occurred unless specified. Time Spent With Patient Time: Total time managing care of this patient today ____ minutes.
--- NOTE | 2024-02-20 09:04 | P.OP_ITS ---
Operative Note Operative Note Date of Service: 02/20/24 Narrative: Operative Information Procedure Description: EGD, Colonoscopy Indication: GERD, colon screening Anesthesia: MAC FLEXIBLE TRANSORAL UPPER GASTROINTESTINAL ENDOSCOPY AND COLONOSCOPY PROCEDURE NOTE UPPER ENDOSCOPY Consent: Indications for the procedure and potential complications of bleeding, perforation, reaction to medications and missed diagnosis were discussed with the patient and informed consent was obtained. Instrument: Olympus GIF H 190 J mid size upper endoscope Monitoring: Vital signs and clinical assessment, continuous EKG monitoring, Pulse oximetry, Carbon Dioxide monitoring and blood pressure monitoring were done throughout the procedure. Procedure: The patient was placed in the left lateral decubitis position and pre-procedure medications were administered and a bite block was placed. The endoscope was inserted into the mouth and advanced under direct vision to the third part of duodenum. A careful inspection was made as the upper endoscope was withdrawn including a retroflexed examination of the proximal stomach; Findings and interventions are described below. Findings: Larynx:normal Esophagus: GE junction at 40 cm, diaphragm hiatus at 40 cm, mild esophagitis at GEJ, bx taken from GEJ and distal esophagus Stomach: Mild erythema. Biopsies were obtained. Grade 2 flap valve on retroflexed examination of the cardia. Duodenum: Normal bulb and descending duodenum, Intervention: Biopsies as noted above, COLONOSCOPY Instrument: Olympus variable stiffness pediatric scope 190L Colonoscopy Monitoring: Vital signs and clinical assessment, continuous EKG monitoring, Pulse oximetry, Carbon Dioxide monitoring and blood pressure monitoring were done throughout the procedure. Colon withdrawal time was 9 minutes. Procedure: The patient was placed in the left lateral decubitis position and pre-procedure medications were administered. After a digital rectal examination of the ano-rectum, the video colonoscope was inserted into the rectum and advanced through the colon to the cecum/TI. The colonoscope was slowly withdrawn in a retrograde panoramic fashion and the colon mucosa was carefully examined including a retroflexed view of the rectum. Findings and interventions are described below. Procedure Difficulty:moderate Findings: Terminal Ileum-normal Cecum:normal Right sided retroflexion- normal Ascending Colon: normal Transverse Colon -normal Descending Colon:normal Sigmoid Colon: normal Rectum: Retroflexion with small internal hemorrhoids, grade I Anorectum - normal Colon preparation: [place] Bowel Preparation Scale Right colon; 2 Transverse colon: 2 Left colon; 2 (0 = Unprepared colon segment with mucosa not seen due to solid stool that cannot be cleared. 1 = Portion of mucosa of the colon segment seen, but other areas of the colon segment not well seen due to staining, residual stool and/or opaque liquid. 2 = Minor amount of residual staining, small fragments of stool and/or opaque li quid, but mucosa of colon segment seen well. 3 = Entire mucosa of colon segment seen well with no residual staining, small fragments of stool or opaque liquid) Impression and Post Procedure Diagnosis: Endoscopy Findings: mild gastritis Colonoscopy Findings: internal hemorrhoids Plan: Await Pathology results Repeat Colonoscopy in 10 years or earlier if clinically indicated High fiber diet leaflet avoid straining at stool, epsom salts and sitz bath, anusol supps or cream GERD precautions Above findings were reviewed with the patient and relevant handouts were provided if indicated.
[2024-02-20 09:07] VITALS: BP 128/70; PULSE 70; RESP 16; TEMP 36.1; O2SAT 99
[2024-02-20 09:20] VITALS: BP 124/72; PULSE 69; RESP 16; TEMP 36.1; O2SAT 100
== END 2024-02-20 09:52 | disposition home or self-care (01) ==
PROVIDERS: PCP General Practice; Visit Provider Internal Medicine Gastroenterology
PROC: (CPT 45378; principal; 2024-02-20 08:20)
DX: Z12.11 Encounter for screening for malignant neoplasm of colon (principal); K64.0 First degree hemorrhoids; K59.09 Other constipation; K62.5 Hemorrhage of anus and rectum; K21.9 Gastro-esophageal reflux disease without esophagitis; K29.50 Unspecified chronic gastritis without bleeding; B96.81 Helicobacter pylori [H. pylori] as the cause of diseases classified elsewhere; K20.80 Other esophagitis without bleeding; K44.9 Diaphragmatic hernia without obstruction or gangrene; I10 Essential (primary) hypertension; I25.2 Old myocardial infarction; I63.9 Cerebral infarction, unspecified; G81.94 Hemiplegia, unspecified affecting left nondominant side; G47.33 Obstructive sleep apnea (adult) (pediatric); M10.9 Gout, unspecified; Z85.3 Personal history of malignant neoplasm of breast; Z92.3 Personal history of irradiation; Z79.82 Long term (current) use of aspirin; Z79.1 Long term (current) use of non-steroidal anti-inflammatories (NSAID); Z99.89 Dependence on other enabling machines and devices; Z79.899 Other long term (current) drug therapy; Z91.041 Radiographic dye allergy status; Z87.891 Personal history of nicotine dependence
CPT/HCPCS: 45378; 43239; 88305; 88313; 88342; J1100; J1596; J2003; J2704

== ENCOUNTER → 2024-02-20 06:50 | Outpatient (BNV) | payer MEDICAID, SELFPAY | PROVIDERS: PCP General Practice; Visit Provider Internal Medicine Gastroenterology | DX: Z12.11 Encounter for screening for malignant neoplasm of colon (principal); K64.0 First degree hemorrhoids; K21.00 Gastro-esophageal reflux disease with esophagitis, without bleeding; K29.70 Gastritis, unspecified, without bleeding | CPT/HCPCS: 43239; 45378 ==

== ENCOUNTER 2024-02-21 09:08 | Outpatient (AMB) | payer MEDICAID, SELFPAY ==
--- NOTE | 2024-02-21 09:11 | A.OFFVIS_ITS ---
Vital Signs 02/21/24 09:19 Height 5 ft 2 in Weight 121 lb 3.362 oz BMI 22.2 BP 167/73 H Blood Pressure Location Lt brachial Position Sitting Pulse 75 Intake Visit Reasons: S/P Lt. brst lumpectomy Intake Note: Patient is seen in office for post op assessment post left breast lumpectomy. 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 She tolerated the procedure well and denies any ongoing breast symptoms. She did have some soreness initially which is improving. Pathology revealed: Breast, left, mass, lumpectomy: -Fibrocystic change with usual ductal hyperplasia, columnar cell change, ap ocrine metaplasia, pseudoangiomatous stromal hyperplasia, duct ectasia, and few microcalcifications. -Focal hemosiderin present (? previous ruptured duct/trauma/biopsy). -No evidence of malignancy [facility] Medical History Fibromuscular dysplasia History of COVID-19 Sleep apnea History of radiation therapy Stroke Aneurysm NSTEMI (non-ST elevated myocardial infarction) Gout Hypertension Hypothyroidism Ductal carcinoma in situ (DCIS) of right breast Surgical History History of lumpectomy of left breast (02/12/24) History of removal of cyst History of breast lump/mass excision (07/09/22) Status post cardiac catheterization History of right breast biopsy (09/08/19) History of endometrial ablation (2010) History of bilateral tubal ligation (2003) History of lumpectomy of right breast (10/07/19) Family History Daughter Thyroid cancer Paternal Grandmother Breast cancer Thyroid cancer Diabetes Sister Diabetes HTN (hypertension) Sister HTN (hypertension) Sister HTN (hypertension) Sister HTN (hypertension) Sister HTN (hypertension) Father Brain tumor Mother Heart attack Social History Household Members: Other Household Members Other:: daughter Housing: Apartment Are you a primary post acute care nurse to a significant other at home: No Do you presently have visiting nurse or other home services: No 75 years or older and lives alone: No Alcohol intake: former Year quit: 2020 Patient Tobacco Use Status: Former Tobacco user Tobacco use type: Cigarette Years Smoked: 10 +/- service: No Current occupational status: employed Current occupation: rt handed Review of Systems Const All systems reviewed & are unremarkable except as noted in HPI and below Physical Exam Const General: comfortable Nutritional Appearance: well nourished Orientation/consciousness: patient oriented x3 Chest Other: Exam deferred Resp Effort & Inspection: normal respiratory effort Skin Other: Warm, dry, no rash Neuro General: patient oriented x3 Assessment & Plan Assessment & Plan (1) Ductal carcinoma in situ (DCIS) of right breast: Code(s): D05.11 - Intraductal carcinoma in situ of right breast Category: Medical (2) Left breast mass: Comment: 02:00 o'clock Code(s): N63.20 - Unspecified lump in the left breast, unspecified quadrant Category: Medical Qualifiers: Breast mass location: upper outer quadrant Qualified Code(s): N63.21 - Unspecified lump in the left breast, upper outer quadrant Plan 48-year-old female patient with a prior history of DCIS right breast now presenting with a palpable mass in the left breast status post lumpectomy 1 week ago. She tolerated the procedure well. Pathology revealed benign breast tissue with no evidence of malignancy. I recommended follow-up in 6 months for routine breast examination. She is welcome to call sooner for any new concerns. Coding Level of Care Code Global (99357) Diagnoses Ductal carcinoma in situ (DCIS) of right breast D05.11 Mass of upper outer quadrant of left breast N63.21 Breast mass location: upper outer quadrant
[2024-02-21 09:19] VITALS: BP 167/73; PULSE 75; BMI 22.2
== END 2024-02-21 09:29 | disposition home or self-care (01) ==
PROVIDERS: PCP General Practice; Visit Provider Surgery
DX: D05.11 Intraductal carcinoma in situ of right breast (principal); N63.21 Unspecified lump in the left breast, upper outer quadrant
CPT/HCPCS: 99024

== ENCOUNTER → 2024-02-21 09:08 | Outpatient (BNVA) | payer MEDICAID, SELFPAY | PROVIDERS: PCP General Practice; Visit Provider Surgery | DX: D05.11 Intraductal carcinoma in situ of right breast (principal); Z48.817 Encounter for surgical aftercare following surgery on the skin and subcutaneous tissue; Z87.2 Personal history of diseases of the skin and subcutaneous tissue; Z98.890 Other specified postprocedural states | CPT/HCPCS: 99212 ==

== ENCOUNTER → 2024-03-02 13:32 | Outpatient (BNVA) | payer MEDICAID, SELFPAY | PROVIDERS: PCP General Practice; Visit Provider Surgery | DX: Z13.79 Encounter for other screening for genetic and chromosomal anomalies (principal) | CPT/HCPCS: 99211 ==

== ENCOUNTER 2024-04-17 11:12 | Outpatient (AMB) | payer MEDICAID, SELFPAY ==
--- NOTE | 2024-04-17 11:20 | MHC.OFFVIS ---
Vital Signs 04/17/24 11:23 Height 5 ft 2 in Weight 122 lb 5.705 oz BMI 22.4 Respiration 16 Pulse 78 Intake Visit Reasons: genetic testing results Intake Note: Patient is seen in office for genetic testing results. 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 Accompanied by: Self / Same As Patient Allergies Gadolinium-Containing Contrast Medi Allergy (Severe, Verified 04/17/24 11:24) Rash Iodinated Contrast Media [IV Contrast Dye] Allergy (Severe, Verified 04/17/24 11:24) Rash Medication List - Last Reconciled 04/17/24 by Tony Osuna MD amlodipine 10 mg PO DAILY amoxicillin 1,000 mg (2 x 500 mg) PO BID 2 weeks aspirin 81 mg PO DAILY atorvastatin 40 mg PO BEDTIME bupropion HCl SR 150 mg PO DAILY gabapentin 100 mg PO DAILY PRN hydroxyzine pamoate 25 mg PO BEDTIME PRN levofloxacin 250 mg PO DAILY levothyroxine 125 mcg PO DAILY metoprolol succinate ER 100 mg PO BID 90 days mirtazapine 30 mg PO DAILY pantoprazole 20 mg PO BID 2 weeks topiramate 100 mg PO BEDTIME valsartan 160 mg PO DAILY HPI Comments Details: 48-year-old female patient, former patient of Dr. Gamez with a prior history of ductal carcinoma in-situ returning to review her recent genetic testing results. She underwent right breast lumpectomy on 09/23/2019 followed by wider excision on 10/08/2019. Pathology revealed DCIS, grade 3, ER/OH negative. Radiation therapy at [facility] was completed on 12/09/2019. She developed lymphedema of the right breast and subsequently underwent physical therapy for approximately 3 weeks. Genetic testing revealed no deleterious mutations although she did have a variant of unknown significance. MRI of 10/24/2021 revealed indeterminate linear enhancement of the left breast, 10:00 o'clock and MR guided biopsy was recommended. 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 On 10/01/2022 she underwent an excision of 2 left breast cysts. Pathology revealed no atypia or malignancy. Mammogram and ultrasound of the right breast performed on 08/04/2023 revealed no suspicious findings at the site of the patient's symptoms (BI-RADS 2). She underwent lumpectomy of a palpable mass in the left 02/12/2024. This revealed benign findings including fibrocystic change and pseudoangiomatous stromal hyperplasia. Genetic testing performed on 03/02/2024 revealed no clinically significant mutations identified. Two variance of uncertain significance in the SDHA and SDHB genes were identified. This would be significant if she had a family history of paraganglioma or pheochromocytoma, renal/kidney cancer, or gastrointestinal stromal tumor (GIST). Patients with family history of these disorders would be eligible for [employer] family study program. To the best of her knowledge she has no family history of any these disorders. A copy of the report was provided to the patient. [facility] Medical History Fibromuscular dysplasia History of COVID-19 Sleep apnea History of radiation therapy Stroke Aneurysm NSTEMI (non-ST elevated myocardial infarction) Gout Hypertension Hypothyroidism Ductal carcinoma in situ (DCIS) of right breast Surgical History History of lumpectomy of left breast (02/12/24) History of removal of cyst History of breast lump/mass excision (07/09/22) Status post cardiac catheterization History of right breast biopsy (09/08/19) History of endometrial ablation (2010) History of bilateral tubal ligation (2003) History of lumpectomy of right breast (10/07/19) Family History Daughter Thyroid cancer Paternal Grandmother Breast cancer Thyroid cancer Diabetes Sister Diabetes HTN (hypertension) Sister HTN (hypertension) Sister HTN (hypertension) Sister HTN (hypertension) Sister HTN (hypertension) Father Brain tumor Mother Heart attack Social History Household Members: Other Household Members Other:: daughter Housing: Apartment Are you a primary customer care coordinator to a significant other at home: No Do you presently have visiting nurse or other home services: No 75 years or older and lives alone: No Alcohol intake: former Year quit: 2020 Patient Tobacco Use Status: Former Tobacco user Tobacco use type: Cigarette Years Smoked: 10 +/- service: No Current occupational status: employed Current occupation: rt handed Review of Systems Const All systems reviewed & are unremarkable except as noted in HPI and below Physical Exam Vital Signs: Last Vital Signs Pulse 78 04/17/24 11:23 Resp 16 04/17/24 11:23 BMI result Body Mass Index 22.4 Const Other: Examination deferred General: no acute distress Nutritional Appearance: well nourished Orientation/consciousness: patient oriented x3 Limitations: no limitations Neuro General: patient oriented x3 Results Reviewed Results Reviewed: Genetic testing: Assessment & Plan Assessment & Plan (1) Ductal carcinoma in situ (DCIS) of right breast: Code(s): D05.11 - Intraductal carcinoma in situ of right breast Category: Medical Plan 49-year-old female patient with a previous history of DCIS right breast status post right breast lumpectomy followed by radiation therapy. She recently underwent genetic testing on 03/02/2024. She was provided with a copy of the results which revealed no clinically significant mutations. To variance of unknown significance in the SDHA and SDHB gene were identified. No changes in her current screening are recommended. She will follow-up with her previous scheduled six-month follow-up examination, sooner p.r.n.. Coding Level of Care Code Est Pt Level 3 (26534) Diagnoses Ductal carcinoma in situ (DCIS) of right breast D05.11
[2024-04-17 11:23] VITALS: PULSE 78; RESP 16; BMI 22.4
== END 2024-04-17 11:30 | disposition home or self-care (01) ==
PROVIDERS: PCP General Practice; Visit Provider Surgery
DX: D05.11 Intraductal carcinoma in situ of right breast (principal)
CPT/HCPCS: 99024

== ENCOUNTER → 2024-04-17 11:12 | Outpatient (BNVA) | payer MEDICAID, SELFPAY | PROVIDERS: PCP General Practice; Visit Provider Surgery | DX: D05.11 Intraductal carcinoma in situ of right breast (principal) | CPT/HCPCS: 99212 ==

== ENCOUNTER 2024-04-28 13:00 | Outpatient (REF) | payer MEDICAID, SELFPAY ==
[2024-04-28 15:20] LABS: H Pylori Breath Test Positive (Negative)
== END 2024-04-28 13:01 | disposition home or self-care (01) ==
LOC: HO.LNP 13:00
PROVIDERS: PCP General Practice; Visit Provider Internal Medicine Gastroenterology
DX: A04.8 Other specified bacterial intestinal infections (principal)
CPT/HCPCS: 83013; 99211

== ENCOUNTER 2024-04-28 13:00 | Outpatient (AMB) | payer MEDICAID, SELFPAY ==
--- NOTE | 2024-04-28 13:07 | AM.OFFVISNUR ---
Intake Visit Reasons: H Pylori Re-Test Allergies Gadolinium-Containing Contrast Medi Allergy (Severe, Verified 04/17/24 11:24) Rash Iodinated Contrast Media [IV Contrast Dye] Allergy (Severe, Verified 04/17/24 11:24) Rash Nursing Note Patient presents for collection of H Pylori breath test. Patient has been fasting for 1 hour (nothing to eat, drink, no chewing gum or smoking) has not taken any antacid medication for at least 2 weeks and has no allergies to artificial sweeteners.?? Assessment & Plan Assessment & Plan (1) Chest pain: Code(s): R07.9 - Chest pain, unspecified Category: Medical Plan Patient presents for collection of H Pylori breath test. Patient has been fasting for 1 hour (nothing to eat, drink, no chewing gum or smoking) has not taken any antacid medication for at least 2 weeks and has no allergies to artificial sweeteners.???This test checks for an overgrowth of bacteria in your stomach. We all have bacteria but some may have more than others. It is treatable. if the test comes back negative there is nothing else to do. If the test result is positive we will treat you with 2 antibiotics and a medication to decrease the acid in your stomach (PPI) for 2 weeks. Two weeks after you have completed the treatment we will retest you to make sure the overgrowth has resolved. Orders: Orders H Pylori Breath Test Today Patient Instructions: Process for specimen collection and reason for testing was explained to the patient. Specimen collection. Patient instructed to take a deep breath and then exhale into the blue bag, filling it up as much as possible. Patient instructed to drink a mixture of water and the artificial sweetener with a straw. A 15 minute wait period was observed. Patient instructed to take a deep breath and then exhale into the pink bag, filling it up as much as possible.??
== END 2024-04-28 13:37 | disposition home or self-care (01) ==
PROVIDERS: PCP General Practice; Visit Provider Internal Medicine Gastroenterology
DX: R07.9 Chest pain, unspecified (principal)

== ENCOUNTER 2024-06-09 14:27 | Outpatient (AMB) | payer MEDICAID, SELFPAY ==
--- NOTE | 2024-06-09 14:32 | A.OFFVIS_ITS ---
Vital Signs 06/09/24 14:33 Height 5 ft 2 in Weight 122 lb BMI 22.3 Intake Visit Reasons: CUSTOMER RELATIONS ASSISTANT/C referral for LE swelling Intake Note: CUSTOMER RELATIONS ASSISTANT for bilateral LE, Left LE worse than Right LE. Pt states she gets very swollen feet and discoloration. Accompanied by: Self / Same As Patient Allergies Gadolinium-Containing Contrast Medi Allergy (Severe, Verified 06/09/24 14:36) Rash Iodinated Contrast Media [IV Contrast Dye] Allergy (Severe, Verified 06/09/24 14:36) Rash HPI HPI CUSTOMER RELATIONS ASSISTANT/C referral for LE swelling: Details: Mulu, a pleasant 49-year-old female patient, is presenting today on a referral from her PCP for bilateral swelling and pain of the lower extremities for the last 8+ months. Complaints include pain, swelling of lower extremities, cramping, fatigue, and heaviness of the lower extremities. It has been affecting their daily activities including walking, standing, and physical activity. It is noted more so in left leg. She is a former smoker. She is not a diabetic. She has had a CVA, s/p left ICA aneurysm with stenting. Patient denies any previous venous surgery or injections. Patient denies any history of DVT/ PE. Patient denies any history of phlebitis. Trial of compression includes - elevation without relief, remote hx of compression stockings They now present for vascular evaluation regarding their varicose veins. ON LICENSE OF [facility] Medical History Fibromuscular dysplasia History of COVID-19 Sleep apnea History of radiation therapy Stroke Aneurysm NSTEMI (non-ST elevated myocardial infarction) Gout Hypertension Hypothyroidism Ductal carcinoma in situ (DCIS) of right breast Surgical History History of lumpectomy of left breast (02/12/24) History of removal of cyst History of breast lump/mass excision (07/09/22) Status post cardiac catheterization History of right breast biopsy (09/08/19) History of endometrial ablation (2010) History of bilateral tubal ligation (2003) History of lumpectomy of right breast (10/07/19) Family History Daughter Thyroid cancer Paternal Grandmother Breast cancer Thyroid cancer Diabetes Sister Diabetes HTN (hypertension) Sister HTN (hypertension) Sister HTN (hypertension) Sister HTN (hypertension) Sister HTN (hypertension) Father Brain tumor Mother Heart attack Social History Household Members: Other Household Members Other:: daughter Housing: Apartment Are you a primary care management assistant to a significant other at home: No Do you presently have visiting nurse or other home services: No 75 years or older and lives alone: No Alcohol intake: former Year quit: 2020 Patient Tobacco Use Status: Former Tobacco user Tobacco use type: Cigarette Years Smoked: 10 +/- service: No Current occupational status: employed Current occupation: rt handed Review of Systems Const Reports as per HPI and Denies weakness ENT Reports Normal hearing present and Denies dizziness Card Reports as per HPI, Denies chest pain, Denies chest pain at rest, Denies chest pain with activity, Denies dyspnea and Denies dyspnea on exertion Resp Reports as per HPI, Denies cough, Denies dyspnea and Denies dyspnea on exertion GI Reports as per HPI, Denies abdominal pain, Denies nausea and Denies vomiting Musc Denies numbness Skin/Breast Reports as per HPI, Denies erythema and Denies wounds Neuro Reports Normal hearing present, Denies dizziness, Denies numbness, Denies Sensory deficit (Neuro) and Denies weakness Psych Reports no additional complaints Endo Reports no additional complaints Physical Exam Vital Signs: BMI result Body Mass Index 22.3 Const General: healthy appearing and no acute distress Orientation/consciousness: patient oriented x3 HEENT Head: Yes normal to inspection Ears: hearing grossly normal bilaterally Mouth: Normal oral and palatal mucosa present Resp Effort & Inspection: normal respiratory effort and able to speak in complete sentences Auscultation: clear to auscultation bilaterally Cardio Jugular venous distension: no JVD Rate: regular rate Rhythm: regular rhythm Heart sounds: S1 normal heart sound present and S2 normal heart sound present Bruits: no abdominal aortic bruits, no carotid bruits, no femoral bruits and no renal bruits Peripheral pulses: Peripheral pulses 2+ throughout GI Inspection: Yes normal to inspection Palpation (GI): No Abdominal aortic bruit present Skin General skin exam: no rashes or lesions noted Wounds: no wounds Hair: normal Neuro General: patient oriented x3 Cranial nerves: Yes Normal hearing present Cognition (Neuro): normal cognition Gait exam (Neuro): Normal gait present Motor exam (neuro): 5/5 motor strength present throughout Sensory Exam: No Sensory deficit (Neuro) Extrem Other: Bilateral lower extremities: Trace peripheral edema noted. Discoloration noted around the ankles. Palpable DP pulses. No tortuosities noted CEAP: C - 3/4 E - primary A - superficial P - reflux General: Yes normal to inspection, Yes full ROM, Yes capillary refill normal and Yes normal gait Assessment & Plan Assessment & Plan (1) Varicose veins of both lower extremities with inflammation: Code(s): I83.11 - Varicose veins of right lower extremity with inflammation; I83.12 - Varicose veins of left lower extremity with inflammation Category: Medical Plan: Mulu is presenting today on a referral from her PCP for worsening swelling and pain of her bilateral lower extremities, left a little more than right. In short, the patient has evidence of venous insufficiency. I have discussed the pathophysiology with the patient. In addition I have provided informational material regarding venous disease to the patient. We have discussed conservative measures including compression, elevation, and exercise. We are able to provider with compression stockings. I have taken the liberty of ordering venous insufficiency testing with the patient. They will follow up with me after testing. The patient had an opportunity to ask questions regarding the treatment plan. All questions were answered. Imaging studies, laboratory studies and physical exam results were discussed and reviewed in detail. No major barriers to understanding were identified. The patient expressed understanding and agreement with the above treatment plan. The patient is aware they should contact our office by phone for worsening of the current condition or the appearance of new symptoms. Thank you for allowing me to participate in the vascular care of this patient. If you have any questions or concerns regarding the treatment for the above condition please do not hesitate to contact me. The office telephone contact is [phone]. This note is constructed using voice recognition software. While every effort has been made to ensure accuracy, painter touch up errors may have been included. Thank you for allowing me to participate in the care of your patient. Yours sincerely, GERONIMO Agudelo Orders: Orders US venous duplex LE BI 1 Week I83.11 - Varicose veins of right lower extremity with inflammation, I83.12 - Varicose veins of left lower extremity with inflammation Coding Level of Care Code New Pt Level 4 (19061) Diagnoses Varicose veins of both lower extremities with inflammation I83.11; I83.12
[2024-06-09 14:33] VITALS: BMI 22.3
--- OUTSIDE RECORDS SUMMARY | 2024-06-09 15:21 | XMS_ITS | Encounter Summary ---
Author Organization [employer] Address [address] [facility] [address] [place] [address] Care Team Providers Care Insurance Claims Examiner Name Role Phone Kathy Mcneill MD Primary Care Provider [phone] Shayan Douglas Unavailable Unavailable Encounter Details Date Type Department Care Team (Latest Contact Info) Description 05/19/2024 Travel Social History Tobacco Use Types Packs/Day Years Used Date Smoking Tobacco: Some Days Cigarettes Smokeless Tobacco: Never Alcohol Use Standard Drinks/Week Comments Never 0 (1 standard drink = 0.6 oz pur e alcohol) Depression Answer Date Recorded Patient Health Questionnaire-9 Score 0 05/10/2023 Patient Health Questionnaire-9 Score 0 05/10/2023 Last PHQ-9: Questionnaire Data Not on file 1 Housing Stability Answer Date Recorded What is your housing situation today? I have pamela multani 08/14/[address] you li ve. Do you have problems with any of the following? None of the above 08/14/2023 Food Insecurity Answer Date Recorded Within the past 12 months, y ou worried that your food would run out before you got money to buy more: Never True 08/14/2023 Within the past 12 months,th e food you bought just didn't last and you didn't have enough money to get more: Never True 07/2023 Transportation Answer Date Recorded In the past 12 months, has l ack of transportation kept you from medical appts, meetings, work or from getting things needed for daily living? Yes, it has kept me from medical appointments or getting medications. 08/14/2023 Utilities Answer Date Recorded In the past 12 months, has t he electric, gas, oil or water company threatened to shut off services in your home? No 08/14/2023 Depression Answer Date Recorded Patient Health Questionnaire-2 Score 0 05/10/2023 Comments Unknown Sex and Gender Information Value Date Recorded Sex Assigned at Female 03/12/2022 10:14 AM EDT Legal Sex Female 10:14 AM EDT Gender Identity Female 03/12/2022 10:14 AM EDT Sexual Orientation Straight 04/08/2023 2: 20 PM EST documented as of this encounter Plan of Treatment Not on file documented as of this encounter Visit Diagnoses Not on filedocumented in this encounter Additional Health Concerns Assessment Noted Time PHQ-9 Depression Total Score: 0 05/10/20 3:34 PM EST documented as of this encounter Care Teams Insurance Claims Examiner Relationship Specialty Start Date End Date Kathy Mcneill MD [address] [place] [address] PCP - General Family Medicine 01/06/22 Shayan Douglas FNP [address] [place] [id number] Nurse Practitioner Family Medicine 04/16/23 documented as of this encounter
--- OUTSIDE RECORDS SUMMARY | 2024-06-09 15:21 | XMS_ITS | Encounter Summary ---
Author Organization [employer] Address [address] [facility] [address]t [place] [address] Care Team Providers Care Retail Pharmacy Manager Name Role Phone Kathy Mcneill MD Primary Care Provider [phone] Shayan Douglas Unavailable Unavailable Encounter Details Date Type Department Care Team ([facility] st Contact Info) Description 05/15/2023 Orders Only [facility] [address] [place], [place] [phone] Kathy Mcneill MD [address] [place], [place] [phone] Social History Tobacco Use Types Packs/Day Years [...] housing situation today? I have pamela multani 02/28/[address] you li ve. Do you have problems with any of the following? None of the above 02/28/2023 Food Insecurity Answer Date Recorded Within the past 12 months, y ou worried that your food would run out before you got money to buy more: Never True 02/28/2023 Within the past 12 months,th e food you bought just didn't last and you didn't have enough money to get more: Never True Transportation Answer Date Recorded In the past 12 months, has l ack of transportation kept you from medical appts, meetings, work or from getting things needed for daily living? Yes, it has kept me from medical appointments or getting medications. 02/19/2023 Utilities Answer Date Recorded In the past 12 months, has t he [employer], gas, oil or water company threatened to shut off services in your home? No 02/28/2023 Depression Answer Date Recorded Patient Health Questionnaire-2 Score 0 05/10/2023 Comments Unknown Sex and Gender Information Value Date Recorded Sex Assigned at Female 03/12/2022 10:14 AM EDT Legal Sex Female 10:14 AM EDT Gender Identity Female 03/12/2022 10:14 AM EDT Sexual Orientation Straight 04/08/2023 2: 20 PM EST documented as of this encounter Miscellaneous Notes * Result Encounter Note - Kathy Mcneill MD - 05/15/2023 8:38 AM EST Please confirm with pt that her ultrasound was negative for blood clots. documented in this encounter Plan of Treatment Not on file documented as of this encounter Procedures Procedure Name Priority Date/Time Associated Diagnosis Comments US VENOUS DUPLEX LE LT Routine 05/20/2023 1:16 PM EST documented in this encounter Results * US VENOUS DUPLEX LE LT (05/20/2023 1:16 PM EST) Anatomical Region Laterality Modality Abdomen Ultrasound 05/20/2023 1:16 PM EST Narrative 05/20/2023 1:43 PM EST ? [facility] ?[address] ? [place] [address] ? Ultrasound Report ? Signed ? Patient: Andrey,Mulu ?MR#: [id number] ?? [id number] ? : 1975 ?Acct:[id number] ? Age/Sex: 48 / F ?ADM Date: 01/08/24 ? Loc: HO.[facility]GCX ? Attending Dr: Kathy Mcneill MD ? Ordering Physician: Kathy Mcneill ?? Date of Service: 05/20/23 ?? Procedure(s): US venous duplex LE LT ?? Accession Number(s): [id number] ? cc: Kathy Mcneill ? EXAMINATION: ? US VENOUS ULTRASOUND WITH DOPPLER LOWER EXTREMITY, LEFT ? CLINICAL INFORMATION: ? Left lower extremity on and off swelling and redness for one month ? COMPARISON: ? Venous ultrasound of the left lower extremity 07/13/2021-negative ? TECHNIQUE: ?? Ultrasound of the deep veins is performed from the hip to the calf with ?? compression sonography and color and pulse Doppler assessment. Spectral ?? analysis with color-flow imaging is performed. ? FINDINGS: ?? There is normal venous compression and respiratory variation and ?? augmented flow. The visualized common femoral vein, superficial femoral ?? vein, profunda femoral vein, popliteal vein, and the trifurcation ?? region shows no evidence of deep venous thrombosis. The contralateral ?? common femoral vein demonstrates normal vascular flow and respiratory ?? variation. ? US/US venous duplex LE LT ?? IMPRESSION: ?? No DVT demonstrated in the left lower extremity. ? Dictated By: ?Kusum Wu MD ? Signed By: ?<Electronically signed by Kusum Wu MD in OV> ?05/20/23 1339 ? DD/ 1316 ? TD/TT: ? Auto Service Station Attendant: ? Procedure Note Donjanejamesmartater, Image - 05/20/2023 [facility] [address] [place] [address] Dr. Hayes, [place] [address] Ultrasound Report Signed Patient: Meche Balderas#: [id number] : 1975Acct:[id number] Age/Sex: 48 / FADM Date: 05/20/23 Loc: .[facility]GCX Attending Dr: Kathy Mcneill MD Ordering Physician: Kathy Mcneill Date of Service: 05/20/23 Procedure(s): US venous duplex LE Accession Number(s): [id number] cc: Kathy Mcneill EXAMINATION: US VENOUS ULTRASOUND WITH DOPPLER LOWER EXTREMITY, LEFT CLINICAL INFORMATION: Left lower extremity on and off swelling and redness for one month COMPARISON: Venous ultrasound of the left lower extremity 07/13/2021-negative TECHNIQUE: Ultrasound of the deep veins is performed from the hip to the calf with compression sonography and color and pulse Doppler assessment. Spectral analysis with color-flow imaging is performed. FINDINGS: There is normal venous compression and respiratory variation and augmented flow. The visualized common femoral vein, superficial femoral vein, profunda femoral vein, popliteal vein, and the trifurcation region shows no evidence of deep venous thrombosis. The contralateral common femoral vein demonstrates normal vascular flow and respiratory variation. US/US venous duplex LE LT IMPRESSION: No DVT demonstrated in the left lower extremity. Dictated By: Kusum Wu MD Signed By: <Electronically signed by Kusum Wu MD in OV> 05/20/23 1339 DD/ 1316 TD/TT: Auto Service Station Attendant: us Kathy Mcneill MD IMG US PROCEDURES Final Result documented in this encounter Visit Diagnoses Not on filedocumented in this encounter Additional Health Concerns Assessment Noted Time PHQ-9 Depression Total Score: 0 05/10/20 23 3:34 PM EST documented as of this encounter Care Teams Retail Pharmacy Manager Relationship Specialty Start Date End Date Kathy Mcneill MD [address] [place] [address] PCP - General Family Medicine 01/06/22 Shayan Douglas FNP [address] [place] [address] Nurse Practitioner Family Medicine 04/16/23 documented as of this encounter
--- OUTSIDE RECORDS SUMMARY | 2024-06-09 15:21 | XMS_ITS | Encounter Summary ---
Author Organization [employer] Address [address] [facility] [address] [place] [address] Care Team Providers Care Automobile Repair Service Estimator Name Role Phone Kathy Mcneill MD Primary Care Provider [phone] Shayan Douglas Unavailable Unavailable Reason for Visit * Reason Comments Med Refill Encounter Details Date Type Department Care Team ([facility] st Contact Info) Description 12/28/2023 Refill [facility] [address] [place], [place] [phone] Kathy Mcneill MD [address] [place] [address] Migraine without aura and without status migrainosus, not intractable Social History Tobacco Use Types Packs/Day Years [...] documented as of this encounter Visit Diagnoses Diagnosis Migraine without aura and without status migrainosus, not intractable documented in this encounter Additional Health Concerns Assessment Noted Time PHQ-9 Depression Total Score: 0 05/10/20 23 3:34 PM EST documented as of this encounter Care Teams Automobile Repair Service Estimator Relationship Specialty Start Date End Date Kathy Mcneill MD [address] [place] [address] PCP - General Family Medicine 01/06/22 Shayan Douglas FNP [address] [place] [address] Nurse Practitioner Family Medicine 04/16/23 documented as of this encounter
--- OUTSIDE RECORDS SUMMARY | 2024-06-09 15:21 | XMS_ITS | Encounter Summary ---
Author Organization [employer] Address [address] [facility] [address]t [place] [address] Care Team Providers Care Radio Interference Expert Name Role Phone Kathy Mcneill MD Primary Care Provider [phone] Shayan Douglas Unavailable Unavailable Reason for Visit * Reason Comments Med Refill Encounter Details Date Type Department Care Team ([facility] st Contact Info) Description 05/15/2024 Refill [facility] [address] [place], [place] [phone] Kathy Mcneill MD [address] [place] [address] Migraine without aura and without status migrainosus, [...] documented as of this encounter Care Teams Radio Interference Expert Relationship Specialty Start Date End Date Kathy Mcneill MD [address] [place] [address] PCP - General Family Medicine 01/06/22 Shayan Douglas FNP [address] [place] [address] Nurse Practitioner Family Medicine 04/16/23 documented as of this encounter
--- OUTSIDE RECORDS SUMMARY | 2024-06-09 15:21 | XMS_ITS | Encounter Summary ---
Author Organization [employer] Address [address] [facility] [address]t [place] [address] Care Team Providers Care Picker Tender Name Role Phone Kathy Mcneill MD Primary Care Provider [phone] Shayan Douglas Unavailable Unavailable Reason for Visit * Reason Comments Med Refill Encounter Details Date Type Department Care Team ([facility] st Contact Info) Description 05/26/2024 Refill [facility] [address] [place], [place] [phone] Kathy Mcneill MD [address] [place] [address] Migraine without aura and without status migrainosus, [...] documented as of this encounter Care Teams Picker Tender Relationship Specialty Start Date End Date Kathy Mcneill MD [address] [place] [address] PCP - General Family Medicine 01/06/22 Shayan Douglas FNP [address] [place] [address] Nurse Practitioner Family Medicine 04/16/23 documented as of this encounter
--- OUTSIDE RECORDS SUMMARY | 2024-06-09 15:21 | XMS_ITS | Encounter Summary ---
Author Organization [facility] Address [address] [facility] [address]t [place] [address] Care Team Providers Care Journeyman Press Operator Name Role Phone Kathy Mcneill MD Primary Care Provider [phone] Shayan Douglas Unavailable Unavailable Reason for Visit * Reason Comments Med Refill Encounter Details Date Type Department Care Team ([facility] st Contact Info) Description 06/08/2024 Refill [facility] [address] [place], [place] [phone] Kathy Mcneill MD [address] [place] [address] Smoking Social History Tobacco Use Types Packs/Day Years [...] as of this encounter Visit Diagnoses Diagnosis Smoking Tobacco use disorder documented in this encounter Additional Health Concerns Assessment Noted Time PHQ-9 Depression Total Score: 0 05/10/20 23 3:34 PM EST documented as of this encounter Care Teams Journeyman Press Operator Relationship Specialty Start Date End Date Kathy Mcneill MD [address] [place] [address] PCP - General Family Medicine 01/06/22 Shayan Douglas FNP [address] [place] [address] Nurse Practitioner Family Medicine 04/16/23 documented as of this encounter
--- OUTSIDE RECORDS SUMMARY | 2024-06-09 15:21 | XMS_ITS | Clinical Summary ---
Author Organization [employer] Address [address] [place] [address] [address] [place] [address] Care Team Providers Care Card Writer Hand Name Role Phone Kathy Mcneill MD Primary Care Provider [phone] Shayan Douglas Unavailable Unavailable Allergies Active Allergy Reactions Criticality Noted Date Comments Gadolinium 05/22/2023 Gadolinium Containing Contrast Medi Allergy Iodine Rash Low 05/22/2023 Iodinated Contrast Media -IV contrast Medications Blood Pressure kit Take BP Daily Active aspirin 81 MG EC tablet Take 81 mg by mouth. 021 Active polyethylene glycol, PEG, 3350 (Miralax) 17 g packet Mix 1 packet in 8 ounces of water, juice, coffee or tea and drink once a day 022 Active topiramate (Topamax) 100 MG tablet Take 1 tablet by mouth. 022 Active metoprolol succinate XL (Toprol-XL) 100 MG 24 hr tablet TAKE 1 TABLET BY MOUTH TWICE DAILY AT NOON AND BEDTIME 023 Active hydrocortisone 2.5 % cream Mix 60g tube of Hydrocortisone 2.5% with 16oz jar of CeraVe cream. Apply by topical route 1-2 times per day after shower or bath from the neck down (not on face). 60 g 1 023 Active levothyroxine (Synthroid, Levoxyl) 125 MCG tabletIndication s:Hypothyroidism , unspecified type TAKE 1 TABLET BY MOUTH EVERY MORNING 90 tablet 3 024 Active Lidoderm 5 % patchIndications :Right sided sciatica APPLY 1 PATCH TOPICALLY TO SKIN, LEAVE ON FOR 12 HOURS AND OFF FOR 12 HOURS DIRECTED 30 patch 1 024 Active ibuprofen 800 MG tabletIndication s:Right sided sciatica TAKE 1 TABLET BY MOUTH THREE TIMES DAILY NEEDED FOR PAIN FOR 10 DAYS 30 tablet 024 Active amLODIPine (Norvasc) 10 MG tabletIndication s:Primary hypertension TAKE 1 TABLET BY MOUTH EVERYDAY AT NOON ((for high blood pressure)) 90 tablet 3 024 Active Bisacodyl EC 5 MG EC tablet TAKE 4 TABLETS BY MOUTH ONCE WITH A FULL GLASS OF WATER AT NOON DAY BEFORE PROCEDURE DIRECTED. Active Fiber-Lax 625 MG tablet Take 1 tablet by mouth 3 times daily. Active D3 Super Strength 50 MCG (2000 UT) capsule TAKE 1 CAPSULE BY MOUTH EVERYDAY AT NOON 90 capsule 3 024 Active mirtazapine (Remeron) 30 MG tabletIndication s:Other specified anxiety disorders Take 1 tablet (30 mg) by mouth at bedtime. 90 tablet 1 024 Active atorvastatin (Lipitor) 40 MG tablet TAKE 1 TABLET BY MOUTH AT BEDTIME 90 tablet 3 024 Active Bismuth Subsalicylate 262 MG capsuleIndicatio ns:Helicobacter pylori (H. pylori) infection Take 1 tablet by mouth 3 times daily. 42 capsule 025 Active cyclobenzaprine (Flexeril) 5 MG tabletIndication s:Muscle spasm Take 1 tablet (5 mg) by mouth at bedtime. 30 tablet 025 2024 Active buPROPion SR (Wellbutrin SR) 150 MG 12 hr tabletIndication s:Anxious depression Take 1 tablet (150 mg) by mouth Once daily. Do not crush, chew, or split. 90 tablet 1 025 Active metroNIDAZOLE (Flagyl) 500 MG tabletIndication s:Helicobacter pylori (H. pylori) infection TAKE 1 TABLET BY MOUTH THREE TIMES DAILY FOR FOURTEEN DAYS Active pantoprazole (ProtoNix) 20 MG EC tabletIndication s:Helicobacter pylori (H. pylori) infection TAKE 1 TABLET BY MOUTH TWICE DAILY FOR FOURTEEN DAYS Active tetracycline 500 MG capsuleIndicatio ns:Helicobacter pylori (H. pylori) infection TAKE 1 CAPSULE BY MOUTH EVERY SIX HOURS FOR FOURTEEN DAYS 12/23/2 024 Active bismuth subsalicylate (Pepto Bismol) 262 MG chewable tabletIndication s:Helicobacter pylori (H. pylori) infection TAKE 2 TABLETS BY MOUTH FOUR TIMES DAILY FOR FOURTEEN DAYS 024 Active valsartan (Diovan) 160 MG tabletIndication s:Secondary hypertension Take 1 tablet (160 mg) by mouth Once per day. Total dose of 240mg daily 30 tablet 11 025 2025 Active valsartan (Diovan) 80 MG tabletIndication s:Secondary hypertension Take 1 tablet (80 mg) by mouth Once per day. Total dose of 240mg daily 30 tablet 11 025 2025 Active gabapentin (Neurontin) 100 MG capsuleIndicatio ns:Migraine without aura and without status migrainosus, not intractable TAKE 1 CAPSULE BY MOUTH AT NOON, EVENING, AND BEDTIME 90 capsule 3 025 Active valsartan (Diovan) 160 MG tabletIndication s:Secondary hypertension Take 1 tablet (160 mg) by mouth in the morning. 90 tablet 3 023 2024 Discontinued(R eorder (will not trigger notification to Pharmacy)) buPROPion SR (Wellbutrin SR) 150 MG 12 hr tabletIndication s:Anxious depression Take 1 tablet (150 mg) by mouth Once daily. Do not crush, chew, or split. 90 tablet 1 024 2024 Discontinued(R eorder (will not trigger notification to Pharmacy)) gabapentin (Neurontin) 100 MG capsuleIndicatio ns:Migraine without aura and without status migrainosus, not intractable TAKE 1 CAPSULE BY MOUTH THREE TIMES DAILY IN THE MORNING, EVENING, AND BEDTIME 90 capsule 3 024 2024 Discontinued valsartan (Diovan) 160 MG tabletIndication s:Secondary hypertension Take 1 tablet (160 mg) by mouth Once per day. 90 tablet 3 025 2024 Discontinued(D ose adjustment) Hospital, Clinic, or Other Facility Administered Medication Ordered Dose Route Frequency Start Date End Date Status nitroglycerin (Nitrostat) SL tablet 0.4 mgIndications:Ches t pain, unspecified type,Dissection of coronary artery,Non-ST elevation myocardial infarction (NSTEMI) ([facility]) 0.4 mg SL Every 5 min PRN 05/22/2023 5 Discontinued Active Problems Problem Noted Date Diagnosed Date Helicobacter pylori (H. pylori) infection 2024 Tobacco abuse counseling 08/16/2023 Cerebral aneurysm without rupture 08/16/2023 Right sided sciatica 08/14/2023 Assessment & Plan (08/14/2023 3:47 PM EDT): Lidocaine patches Ibuprofen, oxycodone PT referral Chest pain 05/22/2023 Localized swelling of left lower extremity 05/15 Assessment & Plan (05/15/2023 2:42 PM EST): Intermittent for last month, not currently red or swollen, but with her history of cerebral aneurysm with inter-operative stroke, it would be prudent to rule out a DVT Screening for cervical cancer 05/10/2023 Assessment & Plan (05/15/2023 2:43 PM EST): Blue/purple lesion noted at 3 oclock on cervical exam Likely cyst will await lab results and 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 biopsy Smoking 04/11/2023 Assessment & Plan (04/11/2023 12:44 PM EST): Would like to try Chantix, another friend quit successfully this way Warned about risk of SI, to stop immediately if that happens and notify office Pick quit date, start Chantix one week before that Screening for colon cancer 04/08/2023 Obstructive sleep apnea 07/31/2022 Assessment & Plan (05/22/2024 8:32 AM EST): Use CPAP nightly Assessment & Plan (07/31/2022 11:19 AM EDT): Encouraged CPAP compliance History of myocardial infarction 05/02/2022 Overview (05/02/2022): NSTEMI 12/31 Carotid artery aneurysm 05/02/2022 Overview (05/02/2022): supraclinoid lleft internnal carotid artery aneurysm s/p endovascular pipeline flow diverting stent placement to left internal carotid artery in 06/03 Assessment & Plan (05/02/2022 12:09 PM EST): ? 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 Continue Bupropion SR 150 mg once daily, Mirtazapine 30 mg at bedtime. She also gets Gabapentin and Topiramate from her PCP. F/U with therapist as usual. Today 04/29/2023 provider informed pt that I would be retiring in approx 1/2 year. Suggest she discuss with her therapist the possibility of referral to agency psychiatrist. Meanwhile, FU with me in 2-3 months. She agrees with the plan. Assessment & Plan (02/04/2023 5:08 PM EDT): Doing very well. Continue Bupropion SR 150 mg once daily, Mirtazapine 30 mg at bedtime. She also gets Gabapentin and Topiramate from her PCP. F/U with therapist as usual. FU with me in 2-3 months. She agrees with the plan. Assessment & Plan (09/25/2022 5:13 PM EDT): Doing very well. Continue Bupropion SR 150 mg once daily, Mirtazapine 30 mg at bedtime. She also gets Gabapentin and Topiramate from her PCP. F/U with therapist as usual. FU with me in 2-3 months. She agrees with the plan. Assessment & Plan (04/17/2022 4:14 PM EST): Doing very well. Continue current medications. FU 2 months. She agrees with the plan. 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 Assessment & Plan (07/31/2022 11:20 AM EDT): Last saw Dr Osuna at [facility] 04/2022 Reassuring US in 10/2021, with simple cysts in L breast Continue q6 month followup Assessment & Plan (05/02/2022 12:11 PM EST): Last saw Dr Osuna at [facility] 04/2022 Reassuring US in 10/2021, with simple cysts Migraines 03/31/2022 Myocardial infarction 03/31/2022 Assessment & Plan (07/31/2022 11:19 AM EDT): NSTEMI, continue Bblocker, statin, ASA Vitamin D deficiency 03/31/2022 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 Assessment & Plan (05/22/2024 8:33 AM EST): Continue conservative management Assessment & Plan (07/31/2022 11:18 AM EDT): With ICA stent and resolved (according to CTA of head/neck from [facility]) aneurysm Will have pt return to neurovascular doctor Dr. 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 Hypothyroidism 07/20/2020 Assessment & Plan (05/02/2022 12:10 PM EST): Continue Synthroid 125mcg daily Primary gout 07/10/2018 Hypertension 04/01/2017 Assessment & Plan (05/22/2024 8:26 AM EST): Increase valsartan to 240mg daily Assessment & Plan (11/15/2023 10:27 AM EDT): Monitor BP for 2 weeks at home, if at home > 140/90, increase Valsartan to 240mg daily Assessment & Plan (05/15/2023 2:41 PM EST): Increase Valsartan from 80mg to 160mg as she is not controlled Assessment & Plan (04/11/2023 12:43 PM EST): Called pharmacy to ensure she is receiving Valsartan, make sure to finish all meds by the end of every day Assessment & Plan (07/31/2022 11:19 AM EDT): On Amlodipine 10mg and Metoprolol 50 XL Valsartan 80mg daily Continue to monitor at home/work Assessment & Plan (05/02/2022 12:09 PM EST): On Amlodipine 10mg and Metoprolol 50 XL Valsartan 80mg ordered in a vial in Jan 2022, never picked up per pharmacy Will add Vlasratn 80mg due to uncontrolled BP Anxiety 06/10/2015 Assessment & Plan (05/02/2022 12:10 PM EST): On Bupropion and Mirtazapine Underweight 06/10/2015 Resolved Problems Problem Noted Date Diagnosed Date Resolved Date 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 04/08/2023 Encounters Date Type Department Care Team Description 06/08/2024 Refill [facility] [address] [place], [place] [phone] Kathy Mcneill MD Smoking 05/26/2024 Refill [facility] [address] [place], [place] [phone] Kathy Mcneill MD Migraine without aura and without status migrainosus, not intractable 05/19/2024 10:15 AM EST Office Visit [facility] [address] [place] [address] Kathy Mcneill MD Secondary hypertension (Primary Dx); Anxious depression; Localized swelling of left lower extremity; Cerebral aneurysm without rupture; Obstructive sleep apnea; Arterial fibromuscular dysplasia (CMS/HCC); Ductal carcinoma in situ (DCIS) of right breast; Helicobacter pylori (H. pylori) infection; Muscle spasm 05/19/2024 Travel 05/18/2024 Travel 05/15/2024 Refill [facility] [address] [place] [address] Kathy Mcneill MD Migraine without aura and without status migrainosus, not intractable 04/29/2024 Telephone [facility] [address] [place] [address] Ade Limon RN Results; Interoffice Communication 04/28/2024 Orders Only GENERIC EXTERNAL DATA DEPARTMENT Provider, Generic External Data 04/07/2024 Refill [facility] [address] [place] [address] Kathy Mcneill MD from Last 3 Months Immunizations Name Administration Dates Next Due Influenza Injectable Quadriv alant Preservative Free IIV4 MDCK 03/05/2017 Influenza injectable quadriv alent IIV4 with preservative 02/06/2018 Influenza injectable quadriv alent preservative free 04/08/2023,02/07/2022,03/02/2021,2019 Influenza, IIV3, injectable 02/02/2014 Influenza, Split (incl. yoly fied surface antigen) 01/21/2012 Influenza, seasonal, injecta ble, preservative free 01/27/2024 Pfizer Covid-19 Vaccine 12+ 03/02/2021,,06/25/2020 TD (adult), 2 Lf tetanus tox oid, preservative free, adsorbed 05/22/2007,06/21/1995 Tdap 10/01/2016 Zoster, Recombinant 05/22/2024(Deferred: Patient decision),05/19/2024 Family History Medical History Relation Name Comments Breast cancer Other Diabetes Other Heart disease Other Relation Name Status Comments Other Social History Tobacco Use Types Packs/Day Years Used Date Smoking Tobacco: Some Days Cigarettes Smokeless Tobacco: Never Tobacco Cessation:Ready to Q uit: Not Asked; Counseling Given: Not Answered Alcohol Use Standard Drinks/Week Comments Never 0 [...] Orientation Straight 04/08/2023 2: 20 PM EST Last Filed Vital Signs Vital Sign Reading Time Taken Comments Blood Pressure 160/82 05/19/2024 10:10 AM EST Pulse 81 05/19/2024 10:10 AM EST Temperature 36.5 ??C (97.7 ??F) 05/19/2024 10:[address] Respiratory Rate 21 05/19/2024 10:10 AM EST Oxygen Saturation 100% 05/19/2024 10:10 AM EST Inhaled Oxygen Concentration - - Weight 56.3 kg (124 lb 3.2 oz) 05/19/2024 10:10 AM EST Height 157.5 cm (5' 2 ) 05/19/2024 10:10 AM EST Body Mass Index 22.72 05/19/2024 10:10 AM EST Plan of Treatment Health Maintenance Due Date Last Done Comments CT Colonography 1975 Colonoscopy 1975 FIT DNA/Cologuard 1975 FIT 1975 FOBT 1975 Sigmoidoscopy 1975 Pneumococcal Vaccine: Pediatrics (0 to 5 Years) and At-Risk Patients (6 to 64 Years) (1 of 2 - PCV) 1979 Alcohol/Substance Use Screening 1985 Family Planning (PISQ) 1988 Hepatitis B Vaccines (1 of 3 - 19+ 3-dose series) 1992 COVID-19 Vaccine ( season) 2024 03/02/2021, 07/16/2020, 06/25/2020 Depression Screening 05/10/2024 05/10/2023, 05/10/20 23 Zoster Vaccines (2 of 2) 07/14/2024 05/19/2024 SDOH Screening 08/13/2024 08/14/2023 Tobacco Screening 05/19/2025 05/19/2024 Lipid Panel 01/18/2026 01/18/2021, 07/28/2020 DTaP/Tdap/Td Vaccines (2 - Td or Tdap) 10/01/2026 10/01/2016, 05/22/2007, 06/21/1995 Cervical Cancer Screening 05/10/2028 HPV/Cotest 05/10/2028 05/10/2023, 10/01/2016 Pap Smear 05/10/2028 05/10/2023 Colorectal Cancer Screening 05/13/2034 Postponed from 1973 (Other Medical Reasons) RSV Patients and Patients Aged 60 years or older (1 - 1-dose 75+ series) 2048 HIV Screening Completed 04/08/2023, 09/0 12/2020, 07/28/2020, Additional history exists Hepatitis C Screening Completed 04/08/2023 , 01/18/2021, 07/28/2020 Influenza Vaccine Completed 01/27/2024, , 02/07/2022, Additional history exists HIB Vaccines Aged Out No longer eligi ble based on patient's age to complete this topic HPV Vaccines Aged Out No longer eligi ble based on patient's age to complete this topic Hepatitis A Vaccines Aged Out No long er eligible based on patient's age to complete this topic IPV Vaccines Aged Out No longer eligi ble based on patient's age to complete this topic Meningococcal Vaccine Aged Out No rosa anthony eligible based on patient's age to complete this topic RSV under 20 months Aged Out No longe r eligible based on patient's age to complete this topic Rotavirus Vaccines Aged Out No longer eligible based on patient's age to complete this topic Procedures Procedure Name Priority Date/Time Associated Diagnosis Comments HELICOBACTER PYLORI, UREA BREATH TEST Routine 04/28/2024 1:07 PM EST HPV MRNA E6/E7 REFLEX TO HPV 16, 18/45 Routine 05/10/2023 4:56 PM EST PAP SMEAR Routine 05/10/2023 4:56 PM EST HEPATITIS C ANTIBODY Routine 04/08/2023 2:44 PM EST Screening examination for sexually transmitted disease HIV 1/2 ANTIGEN/ANTIBODY, FOURTH GENERATION W/RFL Routine 04/08/2023 2:44 PM EST Screening examination for sexually transmitted disease LIPID PANEL, STANDARD Routine 01/18/2021 2:59 PM EDT from Last 3 Months or Most Recently Relevant to Health Maintenance Results * Helicobacter pylori, Urea Breath Test (04/28/2024 1:07 PM EST) H. pylori Breath Test Positive Negative [facility] Comment:Antimicrobials, prot on pump inhibitors and bismuthpreparations are known to suppress H. pylori. Ingestingthese medications within two weeks prior to performing thebreath test may produce negative test results. A positiveresult is still clinically valid. 04/28/2024 1:07 PM EST 04/28/2024 1:33 PM EST us Generic External Data Provider LAB BLOOD ORDERAB LES Final Result Performing Organization Address [facility] Co de Phone Number [facility] [address] [place] [address] [phone] * HPV mRNA E6/E7 w/Reflex to HPV Genotypes 16, 18/45 (05/10/2023 4:56 PM EST) HPV nRNA E6/E7 Not Detected Not Detected [facility] Comment:Methodology: Transcr iption-Mediated AmplificationThis assay detects E6/E7 viral messenger RNA (mRNA) from 14high-risk HPV types (16,18,31,33,35,39,45,51,52,56,58,59,66,68).Cervical sources are required for HPV testing.If a vaginal source from a patient who has had atotal hysterectomy with removal of cervix wassubmitted, please contact the testing laboratoryfor alternative testing options.For additional information, please refer tohttp://education.Neu[employer]/faq/AHG543p1(This link if provided for information/educational purposes only.)THIS TEST WAS PERFORMED AT:[employer] [place] [phone] CRUZ MD HPV mRNA E6/E7 [facility] HPV 16 RNA [facility] HPV 18/45 RNA [facility] 05/10/2023 4:56 PM EST 05/14/2023 8:00 AM EST us Kathy Mcneill MD LAB CYTOLOGY ORDERABLES Final Result Performing Organization Address [facility]/ZIP Co de Phone Number [facility] [address] [place] [phone] * Pap Smear (05/10/2023 4:56 PM EST) 05/10/2023 4:56 PM EST 05/14/2023 8:00 AM EST Narrative [facility] - 05/17/2023 1:44 PM EST ----- ------- Name: Mulu Balderas ?Age/Sex: 48/F ? : 1975 Unit#: [id number] ?? Attend Dr: Kathy Mcneill ?Re05/10/23 ?Status: DEP REF ? Location: HO.DANNICLNP ? Disch: ? ----- ------- SPEC : [id number] ? RECD: 05/14/23 ? STATUS: ??SOUT ? REQ NUM: [id number] ? NORTH: 05/10/23-1655 ? SUBM DR: Kathy Mcneill ? ENTERED: ??05/14/23 ?SP TYPE: Pap Smr ?OTHR : ? ORDERED: ??Pap Smear ? Interpretation ?? Satisfactory for evaluation. ?? Negative for intraepithelial lesion or malignancy. ?HPV mRNA E6/E7: ?NOT DETECTED ? This assay detects E6/E7 viral messenger RNA (mRNA) from 14 high-risk HPV types (16, 18, ?? 31, 33, 35, 39, 45, 51, 52, 56, 58, 59, 66, 68) ?? HPV testing performed by [facility], [place], [place]. ??See reference laboratory ?? portion of the EMR for entire report. ?Clinical Information LMP: Menopause Previous PAP test: Unknown date/findings ? Material Received ?? ThinPrep-Cervical ----- ------- Signed (signature on file) INNA Cobb ([facility]) 05/17/23 [id number] ? ----- ------- ? END OF REPORT ? Kathy Mcneill MD LAB CYTOLOGY ORDERABLES Final Result Performing Organization Address [facility] Co de Phone Number [facility] [address] [place] [address] [phone] * Hepatitis C Ab (04/08/2023 2:44 PM EST) Hepatitis C Antibody Nonreactive Nonreactive [facility] Comment:Antibodies to HCV no t detected; does not exclude early acuteHCV infection. Blood Venous blood specimen / Unknown 04/08/2023 2:44 PM EST 04/08/2023 4:15 PM EST Kathy Mcneill MD LAB BLOOD ORDERABLES Final Res ult Performing Organization Address [facility] Co de Phone Number [facility] [address] [place] [address] [phone] * HIV-1/2 Antigen and Antibodies, Fourth Generation, with Reflexes (04/08/2023 2:44 PM EST) HIV AB/AG Nonreactive Nonreactive [facility] Comment:HIV-1 p24 Ag and/or HIV-1/HIV-2 Ab not detected.A test result that is nonreactive does not exclude thepossibility of exposure to or infection with HIV-1 and/orHIV-2. Nonreactive results in this assay for individualswith prior exposure to HIV-1 and/or HIV-2 may be due toantigen and antibody levels that are below the limit ofdetection of this assay.The [employer] HIV Ag/Ab Combo assay result andsupplemental assay results should be interpreted inconjunction with the patient's clinical presentation,history and other laboratory results. If the results areinconsistent with clinical evidence, additional testing issuggested to confirm the result. Blood Venous blood specimen / Unknown 04/08/2023 2:44 PM EST 04/08/2023 4:15 PM EST us Kathy Mcneill MD LAB BLOOD ORDERABLES Final Res ult [facility] [address] [place] [address] [phone] * (ABNORMAL) LIPID PANEL, STANDARD (01/18/2021 2:59 PM EDT) Chol/HDLC Ratio 2.6 <5.0 (calc) [facility] Cholesterol, Total 115 <200 mg/dL [facility] HDL Cholesterol 44(L) > OR = 50 mg/dL [facility] LDL Cholesterol 51 mg/dL (calc) [facility] Comment: Reference range: <100 ?? Desirable range <100 mg/dL for primary prevention; ?? <70 mg/dL for patients with CHD or diabetic patients ?? with > or = 2 CHD risk factors. ?? LDL-C is now calculated using the Johnnie-Daniella ?? calculation, which is a validated novel method providing ?? better accuracy than the Friedewald equation in the ?? estimation of LDL-C. ?? Johnnie DELGADO et al. LAURENT. 2013;310(19): 2150-3880 ?? (http://education.Band Metrics.Qualys/faq/UUJ320) Non-HDL Cholesterol 71 <130 mg/dL (calc) [facility] Comment: For patients with diabetes plus 1 major ASCVD risk ?? factor, treating to a non-HDL-C goal of <100 mg/dL ?? (LDL-C of <70 mg/dL) is considered a therapeutic ?? option. Triglycerides 110 <150 mg/dL [facility] 01/18/2021 2:59 PM EDT us Dayan CALVILLOP LAB BLOOD ORDERABLES Final Res ult Performing Organization Address City/[facility]/ZIP Co de Phone Number [facility] [address] from Last 3 Months or Most Recently Relevant to Health Maintenance Insurance [place], [place] [facility] C3 Care Teams Card Writer Hand Relationship Specialty Start Date End Date Kathy Mcneill MD [address] [place] [address] PCP - General Family Medicine 01/06/22 Shayan Douglas FNP [address] [place] [address] Nurse Practitioner Family Medicine 04/16/23
--- OUTSIDE RECORDS SUMMARY | 2024-06-09 15:21 | XMS_ITS | Encounter Summary ---
Author Organization [employer] Address [address] [place] [address] Care Team Providers Care Automated Access Systems Technician Name Role Phone Kathy Mcneill MD Primary Care Provider [phone] Shayan Douglas Unavailable Unavailable Reason for Visit * Reason Comments Med Refill Encounter Details Date Type Department Care Team (Late st Contact Info) Description 02/22/2023 Refill [facility] [address] [place], [place] [id number] Kathy Mcneill MD [address] [place] [address] Migraine without aura and without status migrainosus, not intractable Social History Tobacco Use Types Packs/Day Years Used Date Smoking Tobacco: Former Cigarettes Smokeless Tobacco: Never Alcohol Use Standard Drinks/Week Comments Never 0 (1 standard drink = 0.6 oz pur e alcohol) Depression Answer Date Recorded Patient Health Questionnaire-9 Score 4 02/04/2023 Housing Stability Answer Date Recorded What is your housing situation today? I have pamela multani 02/19/[address] you li ve. Do you have problems with any of the following? None of the above 02/19/2023 Food Insecurity Answer Date Recorded Within the past 12 months, y ou worried that your food would run out before you got money to buy more: Never True 02/19/2023 Within the past 12 months,th e food you bought just didn't last and you didn't have enough money to get more: Never True 02/2023 Transportation Answer Date Recorded In the past [...] shut off services in your home? No 02/19/2023 Depression Answer Date Recorded Patient Health Questionnaire-2 Score 0 02/04/2023 Comments Unknown Sex and Gender Information Value [...] Assessment Noted Time PHQ-9 Depression Total Score: 4 02/05/20 23 3:48 PM EDT documented as of this encounter Care Teams Automated Access Systems Technician Relationship Specialty Start Date End Date Kathy Mcneill MD [address] [place] [address] PCP - General Family Medicine 01/06/22 Shayan Douglas FNP [address] [place] [address] Nurse Practitioner Family Medicine 04/16/23 documented as of this encounter
--- OUTSIDE RECORDS SUMMARY | 2024-06-09 15:21 | XMS_ITS | Encounter Summary ---
Author Organization [facility] Address [address] [place] [address] 7[address] [place] [address] Care Team Providers Care Tire Setter Name Role Phone Kathy Mcneill MD Primary Care Provider [phone] Shayan Douglas Unavailable Unavailable Reason for Referral * Consultation (Routine) - Authorized Specialty Diagnoses / Procedures Referred By Jeannie franklin Referred To Contact Vascular Surgery Diagnoses Localized swelling of left lower extremity Kathy Mcneill MD [address] [place] [id number] Phone: tel: fax: [facility] Referral ID Status Reason Start Date Expiration Date Visits Requested Visits Authorized [id number] Authorized Specialty Services Required 05/22/2024 05/22/2025 6 6 Reason for Visit * Reason Comments Hypertension Encounter Details Date Type Department Care Team (Latest Contact Info) Description 05/19/2024 10:15 AM EST Office Visit [facility] [address] [place], [place] [phone] Kathy Mcneill MD [address] [place], [place] [phone] Secondary hypertension (Primary Dx); Anxious depression; Localized swelling of left lower extremity; Cerebral aneurysm without rupture; Obstructive sleep apnea; Arterial fibromuscular dysplasia (CMS/HCC); Ductal carcinoma in situ (DCIS) of right breast; Helicobacter pylori (H. pylori) infection; Muscle spasm Social History Tobacco Use Types Packs/Day Years [...] PM EST documented as of this encounter Last Filed Vital Signs Vital Sign Reading [...] Mass Index 22.72 05/19/2024 10:10 AM EST documented in this encounter Progress Notes * Kathy Mcneill MD - 05/19/2024 10:15 AM EST SUBJECTIVE: Mulu Balderas is a 49 y.o. year old female who presents for chronic disease management. Denies recent illness, ER visit, or hospitalization. Acute Concerns: Being treated for H pylori, cannot tolerate wafers of bismuth, makes her stomach hurt so she has stopped taking them. She did notify Dr Patton's office. Will try bismuth in capsule form. Her legs are swelling bilaterally L>R, she does wear compression stockings. Has not had venous mapping, will refer to Dr Santos Interim Updates: HTN > 140/90 at home, elevated in clinic On Amlodipine 10mg, Valsartan 160mg, and Toprolol 100mg XL BP uncontrolled she is feeling more anxious currently Last visit with cardiology 12/04/23 Cards: fibromuscular dysplasia with renal artery aneurysm as well as coronary artery dissection in the past which was treated conservatively. She has done well since then and has been clinically stable. She is on beta-shyam and has been tolerating medications well. Blood pressure is elevated. I have advised her to increase the valsartan to 160 mg daily Today, 05/18/24 Increase Valsartan to 240mg NICHOLAS has CPAP and using more nights than not DCIS, R breast Follows with Dr. Barry for oncology and Dr. Osuna for breast surgery 12/2023 L breast lumpectomy recommended by gen surgery, completed 02/12/24 fibrocystic change, benign 03/18/24 he has completed adjuvant radiation therapy to [facility]. Since her tumor is ER/NV negative, she is not a candidate for adjuvant hormonal therapy. She had benign cyst removed from her left breast in September 2022. She is due for her next bilateral mammography in 07/30/2024. 05/05 breast surgeon- genetic testing neg for clinically sig mutations Dizziness: Saw ENT last month, they said her ears are fine and not the cause of dizziness, recommend going back to her neurovascular doctor, Dr. Solis Never went to vestibular rehab Is having intermittent headaches, getting glasses soon Spontaneous Coronary Artery Dissection: S/p stent to ICA Stopped Plavix 03/2022, continue ASA 81mg daily NSTEMI with fibromuscular dysplasia and known left ICA aneurysm s/p stenting: [facility] [place] for chest pain, dizziness, lightheadedness, flashing lights, palpitations, shoulder numbness/tingling. CT/CT angio head neck IMPRESSION: 1. No acute intracranial abnormality including hemorrhage, mass effect, hydrocephalus, or acute territorial edematous infarction. 2. Normal CTA of the head and neck. Stent is noted in the supraclinoid left ICA with absent opacification of previously described left posterior communicating artery origin aneurysm versus infundibulum. No new intracranial aneurysms are identified. 3. Stable mild irregularity of the distal right internal carotid artery without significant stenosis which may reflect sequela of fibromuscular dysplasia H pylori 02/2024 had EGD/colon; H pylori pos 05/08/24 started tx for H pylori Health Maintenance Colon- Feb 2024, normal, next until 02/2034 Mammo- UTD Pap- with me Imms- PCV 20 next visit, shingles today Patient Active Problem List Diagnosis Aneurysm of renal artery (CMS/HCC) Anxiety Arterial fibromuscular dysplasia (CMS/HCC) Bunion Dissection of coronary artery Hypertension Hypothyroidism Intraductal carcinoma in situ of breast Intraoperative cerebrovascular accident (CVA) Migraines Myocardial infarction (CMS/HCC) Primary gout Underweight Vitamin D deficiency Anxious depression History of myocardial infarction Carotid artery aneurysm (CMS/HCC) Vertigo Obstructive sleep apnea Screening for colon cancer Smoking Screening for cervical cancer Localized swelling of left lower extremity Chest pain Right sided sciatica Tobacco abuse counseling Cerebral aneurysm without rupture Helicobacter pylori (H. pylori) infection Past Surgical History: Procedure Laterality Date CEREBRAL ANEURYSM REPAIR left ICA supraclinoid aneuysm repair ENDOMETRIAL ABLATION 2011 MASTECTOMY Bilateral TUBAL LIGATION Bilateral Family History Problem Relation Name Age of Onset Breast cancer Other Heart disease Other Diabetes Other Social History Social History Narrative Work at [employer] Review of Systems Constitutional: Negative. Respiratory: Negative. Cardiovascular: Positive for leg swelling. Negative for chest pain and palpitations. Gastrointestinal: Negative. Musculoskeletal: Negative. Psychiatric/Behavioral: The patient is nervous/anxious. OBJECTIVE: Vitals: 05/19/24 1010 BP: (!) 160/82 BP Location: Left arm Patient Position: Sitting BP Cuff Size: Adult Pulse: 81 Resp: 21 Temp: 97.7 ??F (36.5 ??C) TempSrc: Temporal SpO2: 100% Weight: 124 lb 3.2 oz (56.3 kg) Height: 5' 2 (1.575 m) Physical Exam Vitals and nursing note reviewed. Constitutional: Appearance: Normal appearance. HENT: Head: Normocephalic and atraumatic. Cardiovascular: Rate and Rhythm: Normal rate and regular rhythm. Pulses: Normal pulses. Heart sounds: Normal heart sounds. Pulmonary: Effort: Pulmonary effort is normal. Breath sounds: Normal breath sounds. Musculoskeletal: Left lower leg: Edema present. Skin: General: Skin is warm and dry. Neurological: General: No focal deficit present. Mental Status: She is alert and oriented to person, place, and time. Psychiatric: Mood and Affect: Mood normal. Behavior: Behavior normal. ASSESSMENT/PLAN Problem List Items Addressed This Visit Arterial fibromuscular dysplasia (CMS/HCC) Current Assessment & Plan Continue conservative management Hypertension - Primary Current Assessment & Plan Increase valsartan to 240mg daily Relevant Medications valsartan (Diovan) 160 MG tablet valsartan (Diovan) 80 MG tablet Intraductal carcinoma in situ of breast Anxious depression Relevant Medications buPROPion SR (Wellbutrin SR) 150 MG 12 hr tablet Obstructive sleep apnea Current Assessment & Plan Use CPAP nightly Localized swelling of left lower extremity Relevant Orders Referral to Vascular Surgery Cerebral aneurysm without rupture Helicobacter pylori (H. pylori) infection Relevant Medications Bismuth Subsalicylate 262 MG capsule metroNIDAZOLE (Flagyl) 500 MG tablet pantoprazole (ProtoNix) 20 MG EC tablet tetracycline 500 MG capsule bismuth subsalicylate (Pepto Bismol) 262 MG chewable tablet Other Visit Diagnoses Muscle spasm Relevant Medications cyclobenzaprine (Flexeril) 5 MG tablet Follow Up: 3 months or sooner prn Allergies Allergen Reactions Gadolinium Gadolinium Containing Contrast Medi Allergy Iodine Rash Iodinated Contrast Media -IV contrast Current Outpatient Medications: amLODIPine (Norvasc) 10 MG tablet, TAKE 1 TABLET BY MOUTH EVERYDAY AT NOON ((for high blood pressure)), Disp: 90 tablet, Rfl: 3 aspirin 81 MG EC tablet, Take 81 mg by mouth., Disp: , Rfl: atorvastatin (Lipitor) 40 MG tablet, TAKE 1 TABLET BY MOUTH AT BEDTIME, Disp: 90 tablet, Rfl: 3 Bisacodyl EC 5 MG EC tablet, TAKE 4 TABLETS BY MOUTH ONCE WITH A FULL GLASS OF WATER AT NOON DAY BEFORE PROCEDURE DIRECTED., Disp: , Rfl: bismuth subsalicylate (Pepto Bismol) 262 MG chewable tablet, TAKE 2 TABLETS BY MOUTH FOUR TIMES DAILY FOR FOURTEEN DAYS, Disp: , Rfl: Blood Pressure kit, Take BP Daily, Disp: , Rfl: D3 Super Strength 50 MCG (2000 UT) capsule, TAKE 1 CAPSULE BY MOUTH EVERYDAY AT NOON, Disp: 90 capsule, Rfl: 3 Fiber-Lax 625 MG tablet, Take 1 tablet by mouth 3 times daily., Disp: , Rfl: gabapentin (Neurontin) 100 MG capsule, TAKE 1 CAPSULE BY MOUTH THREE TIMES DAILY IN THE MORNING, EVENING, AND BEDTIME, Disp: 90 capsule, Rfl: 3 hydrocortisone 2.5 % cream, Mix 60g tube of Hydrocortisone 2.5% with 16oz jar of CeraVe cream. Apply by topical route 1-2 times per day after shower or bath from the neck down (not on face)., Disp: 60 g, Rfl: 1 ibuprofen 800 MG tablet, TAKE 1 TABLET BY MOUTH THREE TIMES DAILY NEEDED FOR PAIN FOR 10 DAYS, Disp: 30 tablet, Rfl: 0 levothyroxine (Synthroid, Levoxyl) 125 MCG tablet, TAKE 1 TABLET BY MOUTH EVERY MORNING, Disp: 90 tablet, Rfl: 3 Lidoderm 5 % patch, APPLY 1 PATCH TOPICALLY TO SKIN, LEAVE ON FOR 12 HOURS AND OFF FOR 12 HOURS DIRECTED, Disp: 30 patch, Rfl: 1 metoprolol succinate XL (Toprol-XL) 100 MG 24 hr tablet, TAKE 1 TABLET BY MOUTH TWICE DAILY AT NOONAND BEDTIME, Disp: , Rfl: metroNIDAZOLE (Flagyl) 500 MG tablet, TAKE 1 TABLET BY MOUTH THREE TIMES DAILY FOR FOURTEEN DAYS, Disp: , Rfl: mirtazapine (Remeron) 30 MG tablet, Take 1 tablet (30 mg) by mouth at bedtime., Disp: 90 tablet, Rfl: 1 pantoprazole (ProtoNix) 20 MG EC tablet, TAKE 1 TABLET BY MOUTH TWICE DAILY FOR FOURTEEN DAYS, Disp: , Rfl: polyethylene glycol, PEG, 3350 (Miralax) 17 g packet, Mix 1 packet in 8 ounces of water, juice, coffee or tea and drink once a day, Disp: , Rfl: tetracycline 500 MG capsule, TAKE 1 CAPSULE BY MOUTH EVERY SIX HOURS FOR FOURTEEN DAYS, Disp: , Rfl: topiramate (Topamax) 100 MG tablet, Take 1 tablet by mouth., Disp: , Rfl: Bismuth Subsalicylate 262 MG capsule, Take 1 tablet by mouth 3 times daily., Disp: 42 capsule, Rfl:0 buPROPion SR (Wellbutrin SR) 150 MG 12 hr tablet, Take 1 tablet (150 mg) by mouth Once daily. Do not crush, chew, or split., Disp: 90 tablet, Rfl: 1 cyclobenzaprine (Flexeril) 5 MG tablet, Take 1 tablet (5 mg) by mouth at bedtime., Disp: 30 tablet,Rfl: 0 valsartan (Diovan) 160 MG tablet, Take 1 tablet (160 mg) by mouth Once per day. Total dose of 240mgdaily, Disp: 30 tablet, Rfl: 11 valsartan (Diovan) 80 MG tablet, Take 1 tablet (80 mg) by mouth Once per day. Total dose of 240mg daily, Disp: 30 tablet, Rfl: 11 Israeli Translation: Patient is bilingual and declines translation services documented in this encounter Miscellaneous Notes * Assessment & Plan Note - Kahty Mcneill MD - 05/22/2024 8:33 AM ESTAssociated Problem(s): Arterial fibromuscular dysplasia (CMS/HCC) Continue conservative management * Assessment & Plan Note - Kathy Mcneill MD - 05/22/2024 8:32 AM ESTAssociated Problem(s): Obstructive sleep apnea Use CPAP nightly * Assessment & Plan Note - Kathy Mcneill MD - 05/22/2024 8:26 AM ESTAssociated Problem(s): Hypertension Increase valsartan to 240mg daily documented in this encounter Plan of Treatment Scheduled Referrals Name Type Priority Associated Diagnoses Orde r Schedule Referral to Vascular Surgery Outpatient Referral Routine Localized swelling of left lower extremity Expected: 05/22/2024 (Approximate), Expires: 05/22/2025 documented as of this encounter Visit Diagnoses Diagnosis Secondary hypertension- Primary Other secondary hypertension, unspecified Anxious depression Localized swelling of left lower extremity Cerebral aneurysm without rupture Obstructive sleep apnea Obstructive sleep apnea (adult) (pediatric) Arterial fibromuscular dysplasia (CMS/HCC) Other specified disorders of arteries and arterioles Ductal carcinoma in situ (DCIS) of right breast Helicobacter pylori (H. pylori) infection Helicobacter pylori (H. pylori) Muscle spasm Spasm of muscle documented in this encounter Additional Health Concerns Assessment Noted Time PHQ-9 Depression Total Score: 0 05/10/20 23 3:34 PM EST documented as of this encounter Care Teams Tire Setter Relationship Specialty Start Date End Date Kathy Mcneill MD [address] [place] [address] PCP - General Family Medicine 01/06/22 Shayan Douglas FNP [address] [place] [address] Nurse Practitioner Family Medicine 04/16/23 documented as of this encounter
--- OUTSIDE RECORDS SUMMARY | 2024-06-09 15:21 | XMS_ITS | Encounter Summary ---
Author Organization [employer] Address [address] [place] [address] Care Team Providers Care Paper Box Cutter Name Role Phone Kathy Mcneill MD Primary Care Provider [phone] Shayan Douglas Unavailable Unavailable Encounter Details Date Type Department Care Team (Latest Contact Info) Description 05/18/2024 Travel Social History Tobacco Use Types Packs/Day [...] documented as of this encounter Care Teams Paper Box Cutter Relationship Specialty Start Date End Date Kathy Mcneill MD [address] [place] [address] PCP - General Family Medicine 01/06/22 Shayan Douglas FNP [address] [place] [id number] Nurse Practitioner Family Medicine 04/16/23 documented as of this encounter
== END 2024-06-09 14:47 | disposition home or self-care (01) ==
PROVIDERS: PCP General Practice; Visit Provider Physician Assistant Surgical
DX: I83.11 Varicose veins of right lower extremity with inflammation (principal); I83.12 Varicose veins of left lower extremity with inflammation
CPT/HCPCS: 99204

== ENCOUNTER → 2024-06-09 14:27 | Outpatient (BNVA) | payer MEDICAID, SELFPAY | PROVIDERS: PCP General Practice; Visit Provider Physician Assistant Surgical | DX: I83.11 Varicose veins of right lower extremity with inflammation (principal); I83.12 Varicose veins of left lower extremity with inflammation; Z87.891 Personal history of nicotine dependence | CPT/HCPCS: 99212 ==

== ENCOUNTER 2024-07-09 13:01 | Outpatient (REF) | payer MEDICAID, SELFPAY ==
--- NOTE | ~2024-07-09 | US_ITS ---
EXAMINATION: US LOWER EXTREMITY VENOUS (REFLUX EXAM), BILATERAL CLINICAL INFORMATION: Varices COMPARISON: DVT left lower extremity dated July 13, 2021 and May 20, 2023. TECHNIQUE: Color flow triplex imaging and compression Doppler was performed to evaluate both the deep and the superficial systems bilaterally. To evaluate the superficial system, the examination was performed in the upright position. Color-flow Doppler ultrasound and compression ultrasound were utilized. In addition, maneuvers were utilized to demonstrate reflux. FINDINGS: 1. DEEP VENOUS ULTRASOUND OF THE RIGHT LOWER EXTREMITY: Common Femoral Vein: Compressible, normal respiratory variation and augmented flow. Femoral Vein: Compressible, normal color flow and augmentation. Popliteal Vein: Compressible, normal augmentation. Deep Reflux: There is no evidence of reflux in the deep system in either the common femoral vein, superficial femoral or the popliteal vein. There is no evidence of a Foster's cyst. 2. SUPERFICIAL ULTRASOUND WITH DOPPLER OF RIGHT LOWER EXTREMITY: GREAT SAPHENOUS VEIN: Saphenofemoral Junction: 0.6 cm; Reflux: 0 ms Proximal Thigh: 0.3 cm; Reflux: 0 ms Mid Thigh: 0.2 cm; Reflux: 0.3 ms Distal Thigh: 0.3 cm; Reflux: 0 ms At Knee: 0.2 cm; Reflux: 0 ms Proximal Calf: 0.2 cm; Reflux: 0 ms Mid Calf: 0.1 cm; Reflux: 0 ms Distal Calf: 0.2 cm; Reflux: 0 ms DUPLICATED MEDIAL GREAT SAPHENOUS VEIN: Diameter: 0.3 cm. Reflux: NA DUPLICATED LATERAL GREAT SAPHENOUS VEIN: Diameter: 0.2 cm. Reflux: NA SMALL SAPHENOUS VEIN: Saphenopopliteal Junction: 0.3 cm; Reflux: 0 ms Proximal: 0.2 cm; Reflux: 0 ms Distal: 0.1 cm; Reflux: 0 ms VEIN OF GIACOMINI: Size: NA Reflux: NA PERFORATORS: Location: Mid thigh and midcalf. Size: 0.1-0.3 cm. Reflux: NA VARICOSITIES: Location: None imaged. Size: NA Reflux: NA 3. DEEP VENOUS ULTRASOUND OF THE LEFT LOWER EXTREMITY: Common Femoral Vein: Compressible, normal respiratory variation and augmented flow. Femoral Vein: Compressible, normal color flow and augmentation. Popliteal Vein: Compressible, normal augmentation. Deep Reflux: There is no evidence of reflux in the deep system in either the common femoral vein, superficial femoral or the popliteal vein. There is no evidence of a Foster's cyst. 4. SUPERFICIAL ULTRASOUND WITH DOPPLER OF LEFT LOWER EXTREMITY: GREAT SAPHENOUS VEIN: Saphenofemoral Junction: 0.5 cm; Reflux: 0 ms Proximal Thigh: 0.4 cm; Reflux: 0 ms Mid Thigh: 0.2 cm; Reflux: 0 ms Distal Thigh: 0.2 cm; Reflux: 0 ms At Knee: 0.2 cm; Reflux: 0 ms Proximal Calf: 0.2 cm; Reflux: 0 ms Mid Calf: 0.2 cm; Reflux: 0 ms Distal Calf: 0.2 cm; Reflux: 0 ms DUPLICATED MEDIAL GREAT SAPHENOUS VEIN: Diameter: None imaged Reflux: NA DUPLICATED LATERAL GREAT SAPHENOUS VEIN: Diameter: 0.3 cm. Reflux: NA SMALL SAPHENOUS VEIN: Saphenopopliteal Junction: 0.2 cm; Reflux: 0 ms Proximal: 0.1 cm; Reflux: 0 ms Distal: 0.2 cm; Reflux: 0 ms VEIN OF GIACOMINI: Size: NA Reflux: NA PERFORATORS: Location: Distal thigh and midcalf. Size: 0.3 cm. Reflux: NA VARICOSITIES: Location: None Imaged Size: NA Reflux: NA US/US venous duplex LE BI IMPRESSION: Right: No venous insufficiency. Perforators without reflux, mid calf in the thigh. Left: No venous insufficiency. Perforators without reflux in distal thigh and midcalf. . Electronically signed by: Kit Eller MD 07/09/2024 03:19 PM [facility] [place]
== END 2024-07-09 13:02 | disposition home or self-care (01) ==
LOC: HO.US 13:01
PROVIDERS: PCP General Practice; Visit Provider Physician Assistant Surgical
DX: I83.12 Varicose veins of left lower extremity with inflammation (principal); I83.11 Varicose veins of right lower extremity with inflammation
CPT/HCPCS: 93970

== ENCOUNTER → 2024-07-09 13:03 | Outpatient (BNV) | payer MEDICAID, SELFPAY | PROVIDERS: PCP General Practice; Visit Provider Radiology Diagnostic Radiology | DX: I83.11 Varicose veins of right lower extremity with inflammation (principal); I83.12 Varicose veins of left lower extremity with inflammation | CPT/HCPCS: 93970 ==

== ENCOUNTER 2024-07-21 13:56 | Outpatient (AMB) | payer MEDICAID, SELFPAY ==
--- NOTE | 2024-07-21 14:16 | A.OFFVIS_ITS ---
Vital Signs 07/21/24 14:17 Height 5 ft 2 in Weight 122 lb BMI 22.3 Intake Visit Reasons: Follow Up 07/09/24 Intake Note: follow up US 07/09/24 for LE discoloration and swelling. 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 She states she continues with bilateral lower extremity swelling and pain. She states she has been wearing compression stockings, but only for short periods of time due to the swelling, causing more pain. She does elevate her legs as well, with some relief. She states she has been diagnosed with lymphedema in the past, she can remember who diagnosed her with it. She has not had any further workup or treatment for the lymphedema. Symptoms that the patient has been experiencing include hyperkeratosis, hyperpigmentation, lymphedema, and edema. She has had a trial of conservative therapy inclusive compression garments of 20-30 mmHg starting on 06/09/24. In addition, the patient has tried exercise limb elevation and home manual lymph decongestive therapy for approximately 30 minutes a day. They have not experienced any significant relief from the swelling and discomfort. They now present for follow-up evaluation. [facility] Medical History Fibromuscular dysplasia History of COVID-19 Sleep apnea History of radiation therapy Stroke Aneurysm NSTEMI (non-ST elevated myocardial infarction) Gout Hypertension Hypothyroidism Ductal carcinoma in situ (DCIS) of right breast Surgical History History of lumpectomy of left breast (02/12/24) History of removal of cyst History of breast lump/mass excision (07/09/22) Status post cardiac catheterization History of right breast biopsy (09/08/19) History of endometrial ablation (2010) History of bilateral tubal ligation (2003) History of lumpectomy of right breast (10/07/19) Family History Daughter Thyroid cancer Paternal Grandmother Breast cancer Thyroid cancer Diabetes Sister Diabetes HTN (hypertension) Sister HTN (hypertension) Sister HTN (hypertension) Sister HTN (hypertension) Sister HTN (hypertension) Father Brain tumor Mother Heart attack Social History Household Members: Other Household Members Other:: daughter Housing: Apartment Are you a primary certified social workers in health care to a significant other at home: No Do you presently have visiting nurse or other home services: No 75 years or older and lives alone: No Alcohol intake: former Year quit: 2020 Patient Tobacco Use Status: Former Tobacco user Tobacco use type: Cigarette Years Smoked: 10 +/- service: No Current occupational status: employed Current occupation: rt handed Review of Systems Const Reports as per HPI and Denies weakness ENT Reports Normal hearing present and Denies dizziness Card Reports as per HPI, Denies chest pain, Denies chest pain at rest, Denies chest pain with activity, Denies dyspnea and Denies dyspnea on exertion Resp Reports as per HPI, Denies cough, Denies dyspnea and Denies dyspnea on exertion GI Reports as per HPI, Denies abdominal pain, Denies nausea and Denies vomiting Musc Denies numbness Skin/Breast Reports as per HPI, Denies erythema and Denies wounds Neuro Reports Normal hearing present, Denies dizziness, Denies numbness, Denies Sensory deficit (Neuro) and Denies weakness Psych Reports no additional complaints Endo Reports no additional complaints Physical Exam Vital Signs: BMI result Body Mass Index 22.3 Const General: healthy appearing and no acute distress Orientation/consciousness: patient oriented x3 HEENT Head: Yes normal to inspection Ears: hearing grossly normal bilaterally Mouth: Normal oral and palatal mucosa present Resp Effort & Inspection: normal respiratory effort and able to speak in complete sentences Auscultation: clear to auscultation bilaterally Cardio Jugular venous distension: no JVD Rate: regular rate Rhythm: regular rhythm Heart sounds: S1 normal heart sound present and S2 normal heart sound present Bruits: no abdominal aortic bruits, no carotid bruits, no femoral bruits and no renal bruits Peripheral pulses: Peripheral pulses 2+ throughout GI Inspection: Yes normal to inspection Palpation (GI): No Abdominal aortic bruit present Skin General skin exam: no rashes or lesions noted Wounds: no wounds Hair: normal Neuro General: patient oriented x3 Cranial nerves: Yes Normal hearing present Cognition (Neuro): normal cognition Gait exam (Neuro): Normal gait present Motor exam (neuro): 5/5 motor strength present throughout Sensory Exam: No Sensory deficit (Neuro) Extrem Other: Bilateral lower extremities: Trace peripheral edema noted. Discoloration noted around the ankles. Palpable DP pulses. No tortuosities noted. Right in cm: Thigh 40 Knee 37 Calf 33 Ankle 23 Left in cm: Thigh 40 Knee 36 Calf 33 Ankle 23 General: Yes normal to inspection, Yes full ROM, Yes capillary refill normal and Yes normal gait Results Reviewed Results Reviewed: Brief summary of venous insufficiency testing is as follows: right great saphenous vein: negative right small saphenous vein: negative right accessory vein: none present left great saphenous vein: negative left small saphenous vein: negative left accessory vein: none present Please note there is no evidence of any venous aneurysms or significant t ortuosity Assessment & Plan Assessment & Plan (1) Lymphedema: Code(s): I89.0 - Lymphedema, not elsewhere classified Category: Medical Plan: Mulu is presenting today for a follow up to US, performed on 07/09/24. The US is negative for venous insufficiency. She does continue with bilateral lower extremity swelling, pain, and discomfort. She states she has been diagnosed with lymphedema previously but has not had any further testing or treatment for it. In short the patient has late onset lymphedema. The patient has been on conservative treatment for at least 3 months with minimal relief, starting on 06/09/24. Patient has tried 30 mm of mercury compression garments, elevation, exercise, healthy diet, and doing manual says self MLD to the best of their ability for over 4 weeks but with no significant relief. She has been compliant with the program, but has provided minimal relief. In addition, on physical exam, we are noticing hyperpigmentation, lymphorrhea, and hyperplasia. It appears that she has stage 2 lymphedema. She has completed multiple forms of conservative therapy; yet significant symptoms remain. Patient requires the use of a pneumatic compression device which we will assist in trying to have the patient obtain them. A pneumatic compression device will help reduce swelling and other lymphedema comorbidities. We will have the patient come to our [facility] on May 14th. We discussed the importance of continuing with elevation, compression stockings, and physical activity. Thank you for allowing us to assist in this patient's care. Coding Level of Care Code Est Pt Level 4 (26500) Diagnoses Lymphedema I89.0 Comment Review of venous insufficiency ultrasound
[2024-07-21 14:17] VITALS: BMI 22.3
--- OUTSIDE RECORDS SUMMARY | 2024-07-21 16:59 | XMS_ITS | Encounter Summary ---
Author Organization [facility] Address [address] [place] [address] Care Team Providers Care Iron Pellet Tester Name Role Phone Kathy Mcneill MD Primary Care Provider [phone] Shayan Douglas Unavailable Unavailable Reason for Visit * Reason Comments Med Refill Encounter Details Date Type Department Care Team ([facility] st Contact Info) Description 06/08/2024 Refill [facility] [address], [place] [id number] Kathy Mcneill MD [address] [place] [address] Smoking Social History Tobacco Use Types Packs/Day [...] as of this encounter Plan of Treatment Upcoming Encounters Date Type Department Care Team (Late st Contact Info) Description 08/26/2024 3:15 PM EDT Office Visit [facility] [address] [place] [address] Kathy Mcneill MD [address] [place] [address] documented as of this encounter Visit Diagnoses Diagnosis Smoking Tobacco use disorder documented in this encounter Additional Health Concerns Assessment Noted Time PHQ-9 Depression Total Score: 0 05/10/20 23 3:34 PM EST documented as of this encounter Care Teams Iron Pellet Tester Relationship Specialty Start Date End Date Kathy Mcneill MD [address] [place] [id number] PCP - General Family Medicine 01/06/22 Shayan Douglas FNP [address] [place] [id number] Nurse Practitioner Family Medicine 04/16/23 documented as of this encounter
--- OUTSIDE RECORDS SUMMARY | 2024-07-21 16:59 | XMS_ITS | Clinical Summary ---
Author Organization [employer] Address [address] [facility] 7[address] [place] [address] Care Team Providers Care Sanding Machine Tender Automatic Name Role Phone Kathy Mcneill MD Primary Care Provider [phone] Shayan Douglas Unavailable Unavailable Allergies Active Allergy Reactions Criticality Noted Date Comments Gadolinium 05/22/2023 Gadolinium Containing Contrast Medi Allergy Iodine Rash Low 05/22/2023 Iodinated Contrast Media -IV contrast Medications aspirin 81 MG EC tablet Take 81 [...] EVERY MORNING 90 tablet 3 024 Active amLODIPine (Norvasc) 10 MG tabletIndication [...] daily. Active D3 Super Strength 50 MCG (1999 UT) capsule TAKE 1 CAPSULE BY MOUTH EVERYDAY AT NOON 90 capsule 3 Active atorvastatin (Lipitor) 40 MG tablet TAKE 1 TABLET BY MOUTH AT BEDTIME 90 tablet 3 Active Bismuth Subsalicylate 262 MG capsuleIndicatio ns:Helicobacter pylori (H. pylori) infection Take 1 tablet by mouth 3 times daily. 42 capsule Active buPROPion SR (Wellbutrin SR) 150 MG 12 hr tabletIndication s:Anxious depression Take 1 tablet (150 mg) by mouth Once daily. Do not crush, chew, or split. 90 tablet 1 Active metroNIDAZOLE (Flagyl) 500 MG tabletIndication s:Helicobacter [...] MOUTH EVERY SIX HOURS FOR FOURTEEN DAYS Active bismuth subsalicylate (Pepto Bismol) 262 MG chewable tabletIndication s:Helicobacter pylori (H. pylori) infection TAKE 2 TABLETS BY MOUTH FOUR TIMES DAILY FOR FOURTEEN DAYS Active valsartan (Diovan) 160 MG tabletIndication s:Secondary hypertension Take 1 tablet (160 mg) by mouth Once per day. Total dose of 240mg daily 30 tablet 2025 Active valsartan (Diovan) 80 MG tabletIndication s:Secondary hypertension Take 1 tablet (80 mg) by mouth Once per day. Total dose of 240mg daily 30 tablet 2025 Active gabapentin (Neurontin) 100 MG capsuleIndicatio ns:Migraine without aura and without status migrainosus, not intractable TAKE 1 CAPSULE BY MOUTH AT NOON, EVENING, AND BEDTIME 90 capsule 3 025 Active mirtazapine (Remeron) 30 MG tabletIndication s:Other specified anxiety disorders TAKE 1 TABLET BY MOUTH AT BEDTIME 90 tablet 3 025 Active ibuprofen 800 MG tabletIndication s:Right sided sciatica TAKE 1 TABLET BY MOUTH THREE TIMES DAILY NEEDED FOR PAIN FOR 10 DAYS 30 tablet 025 Active Lidoderm 5 % patchIndications :Right sided sciatica APPLY 1 PATCH TOPICALLY TO SKIN, LEAVE ON FOR 12 HOURS AND OFF FOR 12 HOURS DIRECTED 30 patch 1 025 Active Blood Pressure kit 1 each Once per day. Take BP Daily 1 kit 025 Active varenicline (Chantix) 0.5 MG tablet Take 0.5 mg by mouth 2 times daily. Take with full glass of water. Active Blood Pressure kit Take BP Daily 2024 Discontinued(R eorder (will not trigger notification to Pharmacy)) Lidoderm 5 % patchIndications :Right sided sciatica APPLY 1 PATCH TOPICALLY TO SKIN, LEAVE ON FOR 12 HOURS AND OFF FOR 12 HOURS DIRECTED 30 patch 1 024 2024 Discontinued(R eorder (will not trigger notification to Pharmacy)) ibuprofen 800 MG tabletIndication s:Right sided sciatica TAKE 1 TABLET BY MOUTH THREE TIMES DAILY NEEDED FOR PAIN FOR 10 DAYS 30 tablet 024 2024 Discontinued(R eorder (will not trigger notification to Pharmacy)) Active Problems Problem Noted Date Diagnosed Date [...] results and refer for any abnormal to principal database developer for biopsy Smoking 04/11/2023 Assessment & Plan [...] AM EDT): Last saw Dr Osuna at [facility] 04/2022 Reassuring US in 10/2021, with simple cysts in L breast Continue q6 month followup Assessment & Plan (05/02/2022 12:11 PM EST): Last saw Dr Osuna at [facility] 04/2022 Reassuring US in 10/2021, with simple cysts Migraines 03/31/2022 Myocardial infarction 03/31/2022 Assessment & Plan (07/31/2022 11:19 AM EDT): NSTEMI, continue Bblocker, statin, ASA Vitamin D deficiency 03/31/2022 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 Assessment & Plan (05/22/2024 8:33 AM EST): Continue conservative management Assessment & Plan (07/31/2022 11:18 AM EDT): With ICA stent and resolved (according to CTA of head/neck from [facility]) aneurysm Will have pt return to neurovascular [...] Encounters Date Type Department Care Team Description 07/09/2024 Orders Only [facility] External Provider, [facility] 07/06/2024 Telephone [facility] [address] [place] [address] Kathy Mcneill MD 07/06/2024 Refill [facility] [address] [place] [address] Kathy Mcneill MD Right sided sciatica 07/06/2024 Telephone [facility] [address] [place] [address] Kathy Mcneill MD 06/17/2024 Refill [facility] [address] [place] [address] Kathy Mcneill MD Smoking 06/15/2024 Refill [facility] [address] [place] [address] Kathy Mcneill MD Other specified anxiety disorders 06/08/2024 Refill [facility] [address] [place] [address] Kathy Mcneill MD Smoking 05/26/2024 Refill [facility] [address] [place], [place] [phone] Kathy Mcneill MD Migraine without aura and without status migrainosus, not intractable 05/19/2024 10:15 AM EST Office Visit [facility] [address] [place] [address] Kathy Mcneill MD Secondary hypertension (Primary Dx); Anxious depression; Localized swelling of left lower extremity; Cerebral aneurysm without rupture; Obstructive sleep apnea; Arterial fibromuscular dysplasia (CMS/HCC); Ductal carcinoma in situ (DCIS) of right breast; Helicobacter pylori (H. pylori) infection; Muscle spasm 05/19/2024 Travel 05/18/2024 Travel 05/15/2024 Refill [facility] [address] [place] [address] Kathy Mcneill MD Migraine without aura and without status migrainosus, not intractable 04/29/2024 Telephone [facility] [address] [place] [address] Ade Limon RN Results; Interoffice Communication 04/28/2024 Orders Only GENERIC EXTERNAL DATA DEPARTMENT Provider, Generic External Data from Last 3 Months Immunizations Name Administration Dates Next Due Influenza Injectable Quadriv alant Preservative Free IIV4 MDCK 03/05/2017 Influenza injectable quadriv alent IIV4 with preservative 02/06/2018 Influenza injectable quadriv alent preservative free 04/08/2023,02/07/2022,03/02/2021,2019 Influenza, IIV3, injectable 02/02/2014 Influenza, Split (incl. yoly fied surface antigen) 01/21/2012 Influenza, seasonal, injecta ble, preservative free 01/27/2024 Enthuse Covid-19 Vaccine 12+ 03/02/2021,,06/25/2020 TD (adult), 2 [...] 05/19/2024 10:10 AM EST Plan of Treatment Upcoming Encounters Date Type Department Care Team (Late st Contact Info) Description 08/26/2024 3:15 PM EDT Office Visit [facility] [address] [place] [address] Kathy Mcneill MD [address] [place], [place] [phone] Health Maintenance Due Date Last Done Comments CT Colonography 1975 Colonoscopy 1973 FIT DNA/Cologuard 1975 FIT 1975 FOBT 1975 Sigmoidoscopy 1973 Alcohol/Substance Use Screening 1985 Family Planning (PISQ) 1988 Hepatitis B Vaccines (1 of 3 - 19+ 3-dose series) 1992 Pneumococcal Vaccine: 50+ Years (1 of 2 - PCV) 1992 COVID-19 Vaccine ( season) 2024 03/02/2021, [...] 75+ series) 2048 HIV Screening Completed 04/08/2023, 090 12/2020, 07/28/2020, Additional history exists Hepatitis C [...] Procedure Name Priority Date/Time Associated Diagnosis Comments [facility] US LOWER EXTREMITY VENOUS DUPLEX BILATERAL Routine 07/09/2024 1:24 PM EST HELICOBACTER PYLORI, UREA BREATH TEST Routine 04/28/2024 [...] Recently Relevant to Health Maintenance Results * [facility] US Lower Extremity Venous Duplex Bilateral (07/09/2024 1:24 PM EST) 07/09/2024 1:24 PM EST Narrative [facility] - 07/09/2024 3:22 PM EST ? [facility] ?[address] ?[place] [address] ? Ultrasound Report ? Signed ? Patient: Andrey,Mulu ?MR#: [id number] ?? [id number] ? : 1975 ?Acct:[id number] ? Age/Sex: 49 / F ?ADM Date: 07/09/24 ? Loc: HO.US ? Attending Dr: Shirley Alexis PA-C ? Ordering Physician: Shirley Alexis PA-C ?? Date of Service: 07/09/24 ?? Procedure(s): US venous duplex LE BI ?? Accession Number(s): [id number] ? cc: Kathy Mcneill; Shirley Alexis PA-C ? EXAMINATION: ?? US LOWER EXTREMITY VENOUS (REFLUX EXAM), BILATERAL ? CLINICAL INFORMATION: ?? Varices ? COMPARISON: ?? DVT left lower extremity dated July 13, 2021 and May 20, 2023. ? TECHNIQUE: ?? Color flow triplex imaging and compression Doppler was performed to ?? evaluate both the deep and the superficial systems bilaterally. To ?? evaluate the superficial system, the examination was performed in the ?? upright position. Color-flow Doppler ultrasound and compression ?? ultrasound were utilized. In addition, maneuvers were utilized to ?? demonstrate reflux. ? FINDINGS: ? 1. DEEP VENOUS ULTRASOUND OF THE RIGHT LOWER EXTREMITY: ?? Common Femoral Vein: Compressible, normal respiratory variation and ?? augmented flow. ? Femoral Vein: Compressible, normal color flow and augmentation. ?? Popliteal Vein: Compressible, normal augmentation. ? Deep Reflux: There is no evidence of reflux in the deep system in ?? either the common femoral vein, superficial femoral or the popliteal ?? vein. ? There is no evidence of a Foster's cyst. ? 2. SUPERFICIAL ULTRASOUND WITH DOPPLER OF RIGHT LOWER EXTREMITY: ? GREAT SAPHENOUS VEIN: ?? Saphenofemoral Junction: 0.6 cm; Reflux: 0 ms ?? Proximal Thigh: 0.3 cm; Reflux: 0 ms ?? Mid Thigh: 0.2 cm; Reflux: 0.3 ms ?? Distal Thigh: 0.3 cm; Reflux: 0 ms ?? At Knee: 0.2 cm; Reflux: 0 ms ?? Proximal Calf: 0.2 cm; Reflux: 0 ms ?? Mid Calf: 0.1 cm; Reflux: 0 ms ?? Distal Calf: 0.2 cm; Reflux: 0 ms ? DUPLICATED MEDIAL GREAT SAPHENOUS VEIN: ?? Diameter: 0.3 cm. ?? Reflux: NA ? DUPLICATED LATERAL GREAT SAPHENOUS VEIN: ?? Diameter: 0.2 cm. ?? Reflux: NA ? SMALL SAPHENOUS VEIN: ?? Saphenopopliteal Junction: 0.3 cm; Reflux: 0 ms ?? Proximal: 0.2 cm; Reflux: 0 ms ?? Distal: 0.1 cm; Reflux: 0 ms ? VEIN OF GIACOMINI: ?? Size: NA ?? Reflux: NA ? PERFORATORS: ?? Location: Mid thigh and midcalf. ?? Size: 0.1-0.3 cm. ?? Reflux: NA ? VARICOSITIES: ?? Location: None imaged. ?? Size: NA ?? Reflux: NA ? 3. DEEP VENOUS ULTRASOUND OF THE LEFT LOWER EXTREMITY: ?? Common Femoral Vein: Compressible, normal respiratory variation and ?? augmented flow. ? Femoral Vein: Compressible, normal color flow and augmentation. ?? Popliteal Vein: Compressible, normal augmentation. ? Deep Reflux: There is no evidence of reflux in the deep system in ?? either the common femoral vein, superficial femoral or the popliteal ?? vein. ? There is no evidence of a Foster's cyst. ? 4. SUPERFICIAL ULTRASOUND WITH DOPPLER OF LEFT LOWER EXTREMITY: ? GREAT SAPHENOUS VEIN: ?? Saphenofemoral Junction: 0.5 cm; Reflux: 0 ms ?? Proximal Thigh: 0.4 cm; Reflux: 0 ms ?? Mid Thigh: 0.2 cm; Reflux: 0 ms ?? Distal Thigh: 0.2 cm; Reflux: 0 ms ?? At Knee: 0.2 cm; Reflux: 0 ms ?? Proximal Calf: 0.2 cm; Reflux: 0 ms ?? Mid Calf: 0.2 cm; Reflux: 0 ms ?? Distal Calf: 0.2 cm; Reflux: 0 ms ? DUPLICATED MEDIAL GREAT SAPHENOUS VEIN: ?? Diameter: None imaged ?? Reflux: NA ? DUPLICATED LATERAL GREAT SAPHENOUS VEIN: ?? Diameter: 0.3 cm. ?? Reflux: NA ? SMALL SAPHENOUS VEIN: ?? Saphenopopliteal Junction: 0.2 cm; Reflux: 0 ms ?? Proximal: 0.1 cm; Reflux: 0 ms ?? Distal: 0.2 cm; Reflux: 0 ms ? VEIN OF GIACOMINI: ?? Size: NA ?? Reflux: NA ? PERFORATORS: ?? Location: Distal thigh and midcalf. ?? Size: 0.3 cm. ?? Reflux: NA ? VARICOSITIES: ?? Location: None Imaged ?? Size: NA ?? Reflux: NA ? US/US venous duplex LE BI ?? IMPRESSION: ?? Right: No venous insufficiency. Perforators without reflux, mid calf in ?? the thigh. ? Left: No venous insufficiency. Perforators without reflux in distal ?? thigh and midcalf. ? . ? Electronically signed by: ??Kit Eller MD ??07/09/2024 03:19 PM ?? EST RP ? Dictated By: ?Kit Majano MD ? Signed By: ?<Electronically signed by Kit Limon MD in OV> ? 07/09/24 1519 ? DD/ 1324 ? TD/TT: 07/09/24 1350 ? Knife Edger: ? Procedure Note Josefina Perez - 07/09/[address] [address] Ultrasound Report Signed Patient: Mulu Balderas#: [id number] : 1975Acct:[id number] Age/Sex: 49 / FADM Date: 07/09/24 Loc: HO.US Attending Dr: Shirley Alexis PA-C Ordering Physician: Shirley Alexis PA-C Date of Service: 07/09/24 Procedure(s): US venous duplex LE BI Accession Number(s): [id number] cc: Wong Mcneill Karen S PA-C EXAMINATION: US LOWER EXTREMITY VENOUS (REFLUX EXAM), BILATERAL CLINICAL INFORMATION: Varices COMPARISON: DVT left lower extremity dated July 13, 2021 and May 20, 2023. TECHNIQUE: Color flow triplex imaging and compression Doppler was performed to evaluate both the deep and the superficial systems bilaterally. To evaluate the superficial system, the examination was performed in the upright position. Color-flow Doppler ultrasound and compression ultrasound were utilized. In addition, maneuvers were utilized to demonstrate reflux. FINDINGS: 1. DEEP VENOUS ULTRASOUND OF THE RIGHT LOWER EXTREMITY: Common Femoral Vein: Compressible, normal respiratory variation and augmented flow. Femoral Vein: Compressible, normal color flow and augmentation. Popliteal Vein: Compressible, normal augmentation. Deep Reflux: There is no evidence of reflux in the deep system in either the common femoral vein, superficial femoral or the popliteal vein. There is no evidence of a Foster's cyst. 2. SUPERFICIAL ULTRASOUND WITH DOPPLER OF RIGHT LOWER EXTREMITY: GREAT SAPHENOUS VEIN: Saphenofemoral Junction: 0.6 cm; Reflux: 0 ms Proximal Thigh: 0.3 cm; Reflux: 0 ms Mid Thigh: 0.2 cm; Reflux: 0.3 ms Distal Thigh: 0.3 cm; Reflux: 0 ms At Knee: 0.2 cm; Reflux: 0 ms Proximal Calf: 0.2 cm; Reflux: 0 ms Mid Calf: 0.1 cm; Reflux: 0 ms Distal Calf: 0.2 cm; Reflux: 0 ms DUPLICATED MEDIAL GREAT SAPHENOUS VEIN: Diameter: 0.3 cm. Reflux: NA DUPLICATED LATERAL GREAT SAPHENOUS VEIN: Diameter: 0.2 cm. Reflux: NA SMALL SAPHENOUS VEIN: Saphenopopliteal Junction: 0.3 cm; Reflux: 0 ms Proximal: 0.2 cm; Reflux: 0 ms Distal: 0.1 cm; Reflux: 0 ms VEIN OF GIACOMINI: Size: NA Reflux: NA PERFORATORS: Location: Mid thigh and midcalf. Size: 0.1-0.3 cm. Reflux: NA VARICOSITIES: Location: None imaged. Size: NA Reflux: NA 3. DEEP VENOUS ULTRASOUND OF THE LEFT LOWER EXTREMITY: Common Femoral Vein: Compressible, normal respiratory variation and augmented flow. Femoral Vein: Compressible, normal color flow and augmentation. Popliteal Vein: Compressible, normal augmentation. Deep Reflux: There is no evidence of reflux in the deep system in either the common femoral vein, superficial femoral or the popliteal vein. There is no evidence of a Foster's cyst. 4. SUPERFICIAL ULTRASOUND WITH DOPPLER OF LEFT LOWER EXTREMITY: GREAT SAPHENOUS VEIN: Saphenofemoral Junction: 0.5 cm; Reflux: 0 ms Proximal Thigh: 0.4 cm; Reflux: 0 ms Mid Thigh: 0.2 cm; Reflux: 0 ms Distal Thigh: 0.2 cm; Reflux: 0 ms At Knee: 0.2 cm; Reflux: 0 ms Proximal Calf: 0.2 cm; Reflux: 0 ms Mid Calf: 0.2 cm; Reflux: 0 ms Distal Calf: 0.2 cm; Reflux: 0 ms DUPLICATED MEDIAL GREAT SAPHENOUS VEIN: Diameter: None imaged Reflux: NA DUPLICATED LATERAL GREAT SAPHENOUS VEIN: Diameter: 0.3 cm. Reflux: NA SMALL SAPHENOUS VEIN: Saphenopopliteal Junction: 0.2 cm; Reflux: 0 ms Proximal: 0.1 cm; Reflux: 0 ms Distal: 0.2 cm; Reflux: 0 ms VEIN OF GIACOMINI: Size: NA Reflux: NA PERFORATORS: Location: Distal thigh and midcalf. Size: 0.3 cm. Reflux: NA VARICOSITIES: Location: None Imaged Size: NA Reflux: NA US/US venous duplex LE BI IMPRESSION: Right: No venous insufficiency. Perforators without reflux, mid calf in the thigh. Left: No venous insufficiency. Perforators without reflux in distal thigh and midcalf. . Electronically signed by: Kit Eller MD 07/09/2024 03:19 PM EST Dictated By: Kit Majano MD Signed By: <Electronically signed by Kit Limon MDin OV> 07/09/24 1519 DD/ 1324 TD/TT: 07/09/24 1350 Knife Edger: us [facility] External Provider CV VASC ULAR PROCEDURES Final Result [facility] [address] [place] [phone] * Helicobacter pylori, Urea Breath Test (04/28/2024 1:07 PM EST) Pathologist [facility] H. pylori Breath Test Positive Negative [facility] Comment:Antimicrobials, prot on pump inhibitors and bismuthpreparations are known to suppress H. pylori. Ingestingthese medications within two weeks prior to performing thebreath test may produce negative test results. A positiveresult is still clinically valid. 04/28/2024 1:07 PM EST 04/28/2024 1:33 PM EST us Generic External Data Provider LAB BLOOD ORDERAB LES Final Result [facility] [address] [place] [phone] * HPV mRNA E6/E7 w/Reflex to HPV Genotypes 16, 18/45 (05/10/2023 4:56 PM EST) Pathologist [facility] HPV nRNA E6/E7 Not Detected Not Detected [facility] Comment:Methodology: Transcr iption-Mediated AmplificationThis assay detects E6/E7 viral messenger RNA (mRNA) from 14high-risk HPV types (16,18,31,33,35,39,45,51,52,56,58,59,66,68).Cervical sources are required for HPV testing.If a vaginal source from a patient who has had atotal hysterectomy with removal of cervix wassubmitted, please contact the testing laboratoryfor alternative testing options.For additional information, please refer tohttp://education.Babytree/faq/LHS326n0(This link if provided for information/educational purposes only.)THIS TEST WAS PERFORMED AT:[facility] [place] [phone] CRUZ MD HPV mRNA E6/E7 [facility] HPV 16 RNA [facility] HPV 18/45 RNA [facility] 05/10/2023 4:56 PM EST 05/14/2023 8:00 AM EST Kathy Mcneill MD LAB CYTOLOGY ORDERABLES Final Result [facility] [address] [place] [phone] [phone] * Pap Smear (05/10/2023 4:56 PM EST) 05/10/2023 4:56 PM EST 05/14/2023 8:00 AM EST Narrative [facility] - 05/17/2023 1:44 PM EST ----- ------- Name: Mulu Balderas ?Age/Sex: 48/F ? : 1975 Unit#: [id number] ?? Attend Dr: Kathy Mcneill ?Re05/10/23 ?Status: DEP REF ? Location: HO.HHCLNP ? Disch: ? ----- ------- SPEC : [id number] ? RECD: 05/14/23 ? STATUS: ??SOUT ? REQ NUM: [id number] ? NORTH: 05/10/23 ? SUBM DR: Kathy Mcneill ? ENTERED: ??05/14/23 ?SP TYPE: Pap Smr ?OTHR DR: ? ORDERED: ??Pap Smear ? Interpretation ?? Satisfactory for evaluation. ?? Negative for intraepithelial lesion or malignancy. ?HPV mRNA E6/E7: ?NOT DETECTED ? This assay detects E6/E7 viral messenger RNA (mRNA) from 14 high-risk HPV types (16, 18, ?? 31, 33, 35, 39, 45, 51, 52, 56, 58, 59, 66, 68) ?? HPV testing performed by [facility], [place], [place]. ??See reference laboratory ?? portion of the EMR for entire report. ?Clinical Information LMP: Menopause Previous PAP test: Unknown date/findings ? Material Received ?? ThinPrep-Cervical ----- ------- Signed (signature on file) INNA Cobb ([facility]) 05/17/23 1344 ? ----- ------- ? END OF REPORT ? Kathy Mcneill MD LAB CYTOLOGY ORDERABLES Final Result Performing Organization Address [facility] Co de Phone Number [facility] [address] [place] [phone] * Hepatitis C Ab (04/08/2023 2:44 PM EST) [facility] Hepatitis C Antibody Nonreactive Nonreactive [facility] Comment:Antibodies to HCV no t detected; does not exclude early acuteHCV infection. Blood Venous blood specimen / Unknown 04/08/2023 2:44 PM EST 04/08/2023 4:15 PM EST Kathy Mcneill MD LAB BLOOD ORDERABLES Final Res ult Performing Organization Address [facility] Co de Phone Number [facility] [address] [place] [address] [phone] * HIV-1/2 Antigen and Antibodies, Fourth Generation, with Reflexes (04/08/2023 2:44 PM EST) Pathologist [facility] HIV AB/AG Nonreactive Nonreactive [facility] Comment:HIV-1 p24 Ag and/or HIV-1/HIV-2 Ab not detected.A test result that is nonreactive does not exclude thepossibility of exposure to or infection with HIV-1 and/orHIV-2. Nonreactive results in this assay for individualswith prior exposure to HIV-1 and/or HIV-2 may be due toantigen and antibody levels that are below the limit ofdetection of this assay.The [employer]GIM[employer]ado HIV Ag/Ab Combo assay result andsupplemental assay results should be interpreted inconjunction with the patient's clinical presentation,history and other laboratory results. If the results areinconsistent with clinical evidence, additional testing issuggested to confirm the result. Blood Venous blood specimen / Unknown 04/08/2023 2:44 PM EST 04/08/2023 4:15 PM EST us Kathy Mcneill MD LAB BLOOD ORDERABLES Final Res ult [facility] [address] [place] [phone] * (ABNORMAL) LIPID PANEL, STANDARD (01/18/2021 2:59 PM EDT) Chol/HDLC Ratio 2.6 <5.0 (calc) [facility] Cholesterol, Total 115 <200 mg/dL [facility] HDL Cholesterol 44(L) > OR = 50 mg/dL [facility] LDL Cholesterol 51 mg/dL (calc) [facility] Comment: Reference range: <100 ?? Desirable range <100 mg/dL for primary prevention; ?? <70 mg/dL for patients with CHD or diabetic patients ?? with > or = 2 CHD risk factors. ?? LDL-C is now calculated using the Devon ?? calculation, which is a validated novel method providing ?? better accuracy than the Friedewald equation in the ?? estimation of LDL-C. ?? Johnnie DELGADO et al. LAURENT. 2013;310(19): 9863-6688 ?? (http://education.MarkLogic.com/faq/ZQB192) Non-HDL Cholesterol 71 <130 mg/dL (calc) [facility] Comment: For patients with diabetes plus 1 major ASCVD risk ?? factor, treating to a non-HDL-C goal of <100 mg/dL ?? (LDL-C of <70 mg/dL) is considered a therapeutic ?? option. Triglycerides 110 <150 mg/dL [facility] 01/18/2021 2:59 PM EDT us Dayan Diez SAMPLE BODY BUILDER LAB BLOOD ORDERABLES Final Res ult [facility] [address] [place] [address], from Last 3 Months or Most Recently Relevant to Health Maintenance Insurance [place], [place] [employer] C[employer] Care Teams Sanding Machine Tender Automatic Relationship Specialty Start Date End Date Kathy Mcneill MD [address] [place] [address] PCP - General Family Medicine 01/06/22 Shayan Douglas FNP [address] [place] [address] Nurse Practitioner Family Medicine 04/16/23
--- OUTSIDE RECORDS SUMMARY | 2024-07-21 16:59 | XMS_ITS | Encounter Summary ---
Author Organization [employer] Address [address] [facility] 7[address] [place] [address] Care Team Providers Care Mine Engineer Name Role Phone Kathy Mcneill MD Primary Care Provider [phone] Shayan Douglas Unavailable Unavailable Encounter Details Date Type Department Care Team ([facility] st Contact Info) Description 07/06/2024 Telephone [facility] [address] [place], [place] [phone] Kathy Mcneill MD [address] [place], [place] [phone] Social History Tobacco Use Types Packs/Day Years [...] Description 08/26/2024 3:15 PM EDT Office Visit [facility] [address] [place] [address] Kathy Mcneill MD [address] [place] [phone] documented as of this encounter Visit Diagnoses Not on filedocumented in this encounter Additional Health Concerns Assessment Noted Time PHQ-9 Depression Total Score: 0 05/10/20 23 3:34 PM EST documented as of this encounter Care Teams Mine Engineer Relationship Specialty Start Date End Date Kathy Mcneill MD [address] [place] [phone] PCP - General Family Medicine 01/06/22 Shayan Douglas FNP [address] [place] [phone] Nurse Practitioner Family Medicine 04/16/23 documented as of this encounter
--- OUTSIDE RECORDS SUMMARY | 2024-07-21 16:59 | XMS_ITS | Encounter Summary ---
Author Organization [employer] [facility] Address [address] [facility] 7t [place] [address] Care Team Providers Care Director Network Development Name Role Phone Kathy Mcneill MD Primary Care Provider [phone] Shayan Douglas Unavailable Unavailable Reason for Visit * Reason Comments Med Refill Encounter Details Date Type Department Care Team ([facility] st Contact Info) Description 06/17/2024 Refill [facility] MEDICINE [address] [place], [place] [phone] Kathy Mcneill MD 230 [place] [address] Smoking Social History Tobacco Use Types Packs/Day [...] Description 08/26/2024 3:15 PM EDT Office Visit [facility] MEDICINE [address] [place] [address] Kathy Mcneill MD 230 [place] [address] documented as of this encounter Visit Diagnoses Diagnosis Smoking Tobacco use disorder documented in this encounter Additional Health Concerns Assessment Noted Time PHQ-9 Depression Total Score: 0 05/10/20 23 3:34 PM EST documented as of this encounter Care Teams Director Network Development Relationship Specialty Start Date End Date Kathy Mcneill MD [address] [place] [address] PCP - General Family Medicine 01/06/22 Shayan Douglas FNP [address] [place] [address] Nurse Practitioner Family Medicine 04/16/23 documented as of this encounter
--- OUTSIDE RECORDS SUMMARY | 2024-07-21 16:59 | XMS_ITS | Encounter Summary ---
Author Organization [employer] Address [address] [facility] 7t [place] [address] Care Team Providers Care Library Sales Consultant Name Role Phone Kathy Mcneill MD Primary Care Provider [phone] Shayan Douglas Unavailable Unavailable Encounter Details Date Type Department Care Team ([facility] st Contact Info) Description 05/15/2023 Orders Only [facility] MEDICINE 230 [place], [place] [phone] Kathy Mcneill MD 230 [place], [place] [phone] Social History Tobacco Use Types Packs/Day Years [...] documented in this encounter Plan of Treatment Upcoming Encounters Date Type Department Care Team (Late st Contact Info) Description 08/26/2024 3:15 PM EDT Office Visit [facility] MEDICINE 230 [place], [place] [phone] Kathy Mcneill MD 230 [place] [address] documented as of this encounter Procedures Procedure Name Priority Date/Time Associated Diagnosis Comments US VENOUS DUPLEX LE LT Routine 05/20/2023 1:16 PM EST documented in this encounter Results * US VENOUS DUPLEX LE LT (05/20/2023 1:16 PM EST) Anatomical Region Laterality Modality Abdomen Ultrasound 05/20/2023 1:16 PM EST Narrative 05/20/2023 1:43 PM EST ? [facility] ?[address] ? [place] [address] ? Ultrasound Report ? Signed ? Patient: Andrey,Mulu ?MR#: [id number] ?? [id number] ? : 1975 ?Acct:[id number] ? Age/Sex: 48 / F ?ADM Date: 01/08/24 ? Loc: HO.HMGCX ? Attending Dr: Kathy Mcneill MD ? Ordering Physician: Kathy Mcneill ?? Date of Service: 05/20/23 ?? Procedure(s): US venous duplex LE LT ?? Accession Number(s): [id number] ? cc: Kathy Mcneill ? EXAMINATION: ? [...] 1339 ? DD/ 1316 ? TD/TT: ? Housekeeping Lead: ? Procedure Note Ana, Image - 05/20/2023 [facility] [address] [place] [address] [place] [address] Ultrasound Report Signed Patient: Mulu Balderas#: [id number] : 1975Acct:[id number] Age/Sex: 48 / FADM Date: 05/20/23 [facility] Att[facility] Dr: Kathy Mcneill MD Ordering Physician: Kathy Mcneill Date of Service: 05/20/23 Procedure(s): US venous duplex LE LT Accession Number(s): [id number] cc: Kathy Mcneill EXAMINATION: US VENOUS ULTRASOUND [...] in OV> 05/20/23 1339 DD/ 1316 TD/TT: Housekeeping Lead: us Kathy Mcneill MD IMG US PROCEDURES Final Result documented in this encounter Visit Diagnoses Not on filedocumented in this encounter Additional Health Concerns Assessment Noted Time PHQ-9 Depression Total Score: 0 05/10/20 23 3:34 PM EST documented as of this encounter Care Teams Library Sales Consultant Relationship Specialty Start Date End Date Kathy Mcneill MD 230 [place] [address] PCP - General Family Medicine 01/06/22 Shayan Douglas FNP 230 [place] [address] Nurse Practitioner Family Medicine 04/16/23 documented as of this encounter
--- OUTSIDE RECORDS SUMMARY | 2024-07-21 16:59 | XMS_ITS | Encounter Summary ---
Author Organization [employer] Address [address] [facility] 7t [place] [address] Care Team Providers Care Gas Charger Name Role Phone Kathy Mcneill MD Primary Care Provider [phone] Shayan Douglas Unavailable Unavailable Encounter Details Date Type Department Care Team ([facility] st Contact Info) Description 07/06/2024 Telephone [facility] MEDICINE 230 [place], [place] [phone] Kathy Mcneill MD 230 [place], [place] [phone] Social History Tobacco Use Types Packs/Day Years [...] Description 08/26/2024 3:15 PM EDT Office Visit [facility] MEDICINE [address] [place] [address] Kathy Mcneill MD [address] [place] [address] documented as of this encounter Visit Diagnoses Not on filedocumented in this encounter Additional Health Concerns Assessment Noted Time PHQ-9 Depression Total Score: 0 05/10/20 23 3:34 PM EST documented as of this encounter Care Teams Gas Charger Relationship Specialty Start Date End Date Kathy Mcneill MD [address] [place] [address] PCP - General Family Medicine 01/06/22 Shayan Douglas FNP [address] [place] [address] Nurse Practitioner Family Medicine 04/16/23 documented as of this encounter
--- OUTSIDE RECORDS SUMMARY | 2024-07-21 16:59 | XMS_ITS | Encounter Summary ---
Author Organization [employer] Address [address] [facility] 7t [place] [address] Care Team Providers Care Stationary Engineer Name Role Phone Kathy Mcneill MD Primary Care Provider Shayan Douglas Unavailable Unavailable Encounter Details Date Type Department Care Team (Late st Contact Info) Description 07/06/2024 Refill [facility] MEDICINE 230 [place], [place] [phone] Kathy Mcneill MD 230 [place], [place] [phone] Right sided sciatica Social History Tobacco Use Types Packs/Day Years [...] Description 08/26/2024 3:15 PM EDT Office Visit [facility] MEDICINE [address] [place] [address] Kathy Mcneill MD 230 [place] [address] documented as of this encounter Visit Diagnoses Diagnosis Right sided sciatica Sciatica documented in this encounter Additional Health Concerns Assessment Noted Time PHQ-9 Depression Total Score: 0 05/10/20 3:34 PM EST documented as of this encounter Care Teams Stationary Engineer Relationship Specialty Start Date End Date Kathy Mcneill MD [address] [place] [address] PCP - General Family Medicine 01/06/22 Shayan Douglas FNP [address] [place] [address] Nurse Practitioner Family Medicine 04/16/23 documented as of this encounter
--- OUTSIDE RECORDS SUMMARY | 2024-07-21 16:59 | XMS_ITS | Encounter Summary ---
Author Organization [employer] Address [address] [facility] 7t [place] [address] Care Team Providers Care Mothers Helper Name Role Phone Kathy Mcneill MD Primary Care Provider [phone] Shayan Douglas Unavailable Unavailable Reason for Visit * Reason Comments Med Refill Encounter Details Date Type Department Care Team (Late st Contact Info) Description 02/22/2023 Refill [facility] MED & PEDS [address] [place], [place] [phone] Kathy Mcneill MD 230 [place] [address] Migraine without aura and without status migrainosus, [...] 08/26/2024 3:15 PM EDT Office Visit [facility] MEDICINE 230 [place] [address] Kathy Mcneill MD 230 [place] [address] documented as of this encounter Visit Diagnoses Diagnosis Migraine without aura and without status migrainosus, not intractable documented in this encounter Additional Health Concerns Assessment Noted Time PHQ-9 Depression Total Score: 4 02/05/20 23 3:48 PM EDT documented as of this encounter Care Teams Mothers Helper Relationship Specialty Start Date End Date Kathy Mcneill MD [address] [place] [address] PCP - General Family Medicine 01/06/22 Shayan Douglas FNP [address] [place] [address] Nurse Practitioner Family Medicine 04/16/23 documented as of this encounter
--- OUTSIDE RECORDS SUMMARY | 2024-07-21 16:59 | XMS_ITS | Encounter Summary ---
Author Organization [employer] Address [address] [facility] 7t [place] [address] Care Team Providers Care Applique Sewer Name Role Phone Kathy Mcneill MD Primary Care Provider [phone] Shayan Douglas Unavailable Unavailable Reason for Visit * Reason Comments Med Refill Encounter Details Date Type Department Care Team ([facility] st Contact Info) Description 05/15/2024 Refill [facility] CHC MED & PEDS [address] [place], [place] [phone] Kathy Mcneill MD 230 [place] [address] Migraine without aura and without status migrainosus, [...] Description 08/26/2024 3:15 PM EDT Office Visit [facility] MEDICINE 230 [place] [address] Kathy Mcneill MD [address] [place] [address] documented as of this encounter Visit Diagnoses Diagnosis Migraine without aura and without status migrainosus, not intractable documented in this encounter Additional Health Concerns Assessment Noted Time PHQ-9 Depression Total Score: 0 05/10/20 23 3:34 PM EST documented as of this encounter Care Teams Applique Sewer Relationship Specialty Start Date End Date Kathy Mcneill MD [address] [place] [address] PCP - General Family Medicine 01/06/22 Shayan Douglas FNP [address] [place] [address] Nurse Practitioner Family Medicine 04/16/23 documented as of this encounter
--- OUTSIDE RECORDS SUMMARY | 2024-07-21 16:59 | XMS_ITS | Encounter Summary ---
Author Organization [employer] Address [address] [facility] 7t [place] [address] Care Team Providers Care System Configuration Specialist Name Role Phone Kathy Mcneill MD Primary Care Provider [phone] Shayan Douglas Unavailable Unavailable Encounter Details Date Type Department Care Team (Late st Contact Info) Description 07/09/2024 Orders Only [facility] External Provider, [facility] Social History Tobacco Use Types Packs/Day Years [...] t he electric, gas, oil or water [employer] threatened to shut off services in your [...] Description 08/26/2024 3:15 PM EDT Office Visit [facility] MEDICINE 230 [place] [address] Kathy Mcneill MD 230 [place] [address] documented as of this encounter Procedures Procedure Name Priority Date/Time Associated Diagnosis Comments [facility] LOWER EXTREMITY VENOUS DUPLEX BILATERAL Routine 07/09/2024 1:24 PM EST documented in this encounter Results * [facility] Lower Extremity Venous Duplex Bilateral (07/09/2024 1:24 PM EST) 07/09/2024 1:24 PM EST Narrative [facility] IMAGING - 07/09/2024 3:22 PM EST ? [facility] ?[address] ?[place] [address] ? Ultrasound Report ? Signed ? Patient: Andrey,Mulu ?MR#: [id number] ?? [id number] ? : 1975 ?Acct:[id number] ? Age/Sex: 49 / F ?ADM Date: 02/27/25 ? Loc: HO.US ? Attending Dr: Shirley MELTON-C ? Ordering Physician: Shirley Alexis PA-C ?? Date of Service: 07/09/24 ?? Procedure(s): US venous duplex LE BI ?? Accession Number(s): [id number] ? cc: Kathy Mcneill; Shirley Alexis PA-C [...] DD/ 1324 ? TD/TT: 07/09/24 1350 ? Territory Outside Sales Manager: ? Procedure Note Donrater, Image - 07/09/2024 [place] [address] Ultrasound Report Signed Patient: Meche Balderas#: [id number] : 1975Acct:[id number] Age/Sex: 49 / FADM Date: 07/09/24 Loc: HO.US Attending Dr: Shirley Alexis PA-C Ordering Physician: Shirley Alexis PA-C Date of Service: 07/09/24 Procedure(s): US venous duplex LE BI Accession Number(s): [id number] cc: Kathy Mcneill; Shirley Alexis PA-C EXAMINATION: US LOWER EXTREMITY VENOUS (REFLUX [...] Kit Eller MD 07/09/2024 03:19 PM EST RP Dictated By: Kit Majano MD Signed By: <Electronically signed by Kit Limon MDin OV> 07/09/24 1519 DD/ 1324 TD/TT: 07/09/24 1350 Territory Outside Sales Manager: [facility] External Provider CV VASC ULAR PROCEDURES Final Result [facility] IMAG[facility] [address] [place] [address] documented in this encounter Visit Diagnoses Not on filedocumented in this encounter Additional Health Concerns Assessment Noted Time PHQ-9 Depression Total Score: 0 05/10/20 23 3:34 PM EST documented as of this encounter Care Teams System Configuration Specialist Relationship Specialty Start Date End Date Kathy Mcneill MD 230 [place] [address] PCP - General Family Medicine 01/06/22 Shayan Douglas FNP [address] [place] [address] Nurse Practitioner Family Medicine 04/16/23 documented as of this encounter
--- OUTSIDE RECORDS SUMMARY | 2024-07-21 16:59 | XMS_ITS | Encounter Summary ---
Author Organization [employer] Address 75 [facility] 7t [place] [address] Care Team Providers Care Nutritionalist Name Role Phone Kathy Mcneill MD Primary Care Provider [phone] Shayan Douglas Unavailable Unavailable Reason for Visit * Reason Comments Med Refill Encounter Details Date Type Department Care Team ([facility] st Contact Info) Description 12/28/2023 Refill [facility] CHC MED & PEDS [address] [place], [place] [phone] Kathy Mcneill MD 230 [place] [address] Migraine without aura and without status migrainosus, [...] Description 08/26/2024 3:15 PM EDT Office Visit [facility] MEDICINE 230 [place] [address] Kathy Mcneill MD [address] [place] [address] documented as of this encounter Visit Diagnoses Diagnosis Migraine without aura and without status migrainosus, not intractable documented in this encounter Additional Health Concerns Assessment Noted Time PHQ-9 Depression Total Score: 0 05/10/20 23 3:34 PM EST documented as of this encounter Care Teams Nutritionalist Relationship Specialty Start Date End Date Kathy Mcneill MD [address] [place] [address] PCP - General Family Medicine 01/06/22 Shayan Douglas FNP [address] [place] [address] Nurse Practitioner Family Medicine 04/16/23 documented as of this encounter
== END 2024-07-21 14:46 | disposition home or self-care (01) ==
LOC: HO.HVS 13:56
PROVIDERS: PCP General Practice; Visit Provider Physician Assistant Surgical
DX: I89.0 Lymphedema, not elsewhere classified (principal)
CPT/HCPCS: 99214

== ENCOUNTER → 2024-07-21 13:56 | Outpatient (BNVA) | payer MEDICAID, SELFPAY | PROVIDERS: PCP General Practice; Visit Provider Physician Assistant Surgical | DX: I89.0 Lymphedema, not elsewhere classified (principal) | CPT/HCPCS: 99212 ==

== ENCOUNTER 2024-07-22 08:44 | Outpatient (REF) | payer MEDICAID, SELFPAY ==
--- OUTSIDE RECORDS SUMMARY | 2024-07-22 09:34 | XMS_ITS | Encounter Summary ---
Author Organization [facility] Address [address] [place] [address] 7t [place] [address] Care Team Providers Care Nuclear Powerplant Mechanic Helper Name Role Phone Kathy Mcneill MD Primary Care Provider [phone] Shayan Douglas Unavailable Unavailable Reason for Visit * Reason Onset Date Comments Med Refill 07/22/2024 Encounter Details Date Type Department Care Team ([facility] st Contact Info) Description 07/22/2024 Refill [facility] [address] [place] [address] Kathy Mcneill MD [address] [place] [address] Social History Tobacco Use Types Packs/Day Years [...] enough money to get more: Never True 04/ 07/2023 Transportation Answer Date Recorded In the [...] 08/26/2024 3:15 PM EDT Office Visit [facility] [address] [place] [address] Kathy Mcneill MD [address] [place] [address] documented as of this encounter Visit Diagnoses Not on filedocumented in this encounter Additional Health Concerns Assessment Noted Time PHQ-9 Depression Total Score: 0 05/10/20 23 3:34 PM EST documented as of this encounter Care Teams Nuclear Powerplant Mechanic Helper Relationship Specialty Start Date End Date Kathy Mcneill MD [address] [place] [address] PCP - General Family Medicine 01/06/22 Shayan Douglas FNP [address] [place] [address] Nurse Practitioner Family Medicine 04/16/23 documented as of this encounter
[2024-07-24 07:37] LABS: H Pylori Breath Test Negative (Negative)
== END 2024-07-22 08:45 | disposition home or self-care (01) ==
LOC: HO.LAB 08:44
PROVIDERS: PCP General Practice; Visit Provider Internal Medicine Gastroenterology
DX: K59.09 Other constipation (principal); K62.5 Hemorrhage of anus and rectum
CPT/HCPCS: 83013; 99211

== ENCOUNTER 2024-07-22 08:44 | Outpatient (AMB) | payer MEDICAID, SELFPAY ==
--- NOTE | 2024-07-22 08:59 | MHC.OFFVIS ---
Vital Signs 07/22/24 09:00 Height 5 ft 2 in Weight 122 lb BMI 22.3 BP 133/74 Blood Pressure Location Lt brachial Position Sitting Pulse 82 Pulse Oximetry (%) 98 Oxygen Delivery Method Room Air Intake Visit Reasons: h pylori Allergies Gadolinium-Containing Contrast Medi Allergy (Severe, Verified 07/22/24 08:58) Rash Iodinated Contrast Media [IV Contrast Dye] Allergy (Severe, Verified 07/22/24 08:58) Rash PFSH Medical History Fibromuscular dysplasia History of COVID-19 Sleep apnea History of radiation therapy Stroke Aneurysm NSTEMI (non-ST elevated myocardial infarction) Gout Hypertension Hypothyroidism Ductal carcinoma in situ (DCIS) of right breast Surgical History History of lumpectomy of left breast (02/12/24) History of removal of cyst History of breast lump/mass excision (07/09/22) Status post cardiac catheterization History of right breast biopsy (09/08/19) History of endometrial ablation (2010) History of bilateral tubal ligation (2003) History of lumpectomy of right breast (10/07/19) Family History Daughter Thyroid cancer Paternal Grandmother Breast cancer Thyroid cancer Diabetes Sister Diabetes HTN (hypertension) Sister HTN (hypertension) Sister HTN (hypertension) Sister HTN (hypertension) Sister HTN (hypertension) Father Brain tumor Mother Heart attack Social History Household Members: Other Household Members Other:: daughter Housing: Apartment Are you a primary clinical manager home care to a significant other at home: No Do you presently have visiting nurse or other home services: No 75 years or older and lives alone: No Alcohol intake: former Year quit: 2020 Patient Tobacco Use Status: Former Tobacco user Tobacco use type: Cigarette Years Smoked: 10 +/- service: No Current occupational status: employed 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
[2024-07-22 09:00] VITALS: BP 133/74; PULSE 82; O2SAT 98; BMI 22.3
--- NOTE | 2024-07-22 09:01 | AM.OFFVISNUR ---
Vital Signs 07/22/24 09:00 Height 5 ft 2 in Weight 122 lb BMI 22.3 BP 133/74 Blood Pressure Location Lt brachial Position Sitting Pulse 82 Pulse Oximetry (%) 98 Oxygen Delivery Method Room Air Intake Visit Reasons: h pylori Intake Note: Patient presents for collection of H Pylori breath test. Patient has been fasting for 1 hour (nothing to eat, drink, no chewing gum or smoking) has not taken any antacid medication for at least 2 weeks and has no allergies to artificial sweeteners.?? Pension Fund Manager Required: No Accompanied by: Self / Same As Patient Allergies Gadolinium-Containing Contrast Medi Allergy (Severe, Verified 07/22/24 09:15) Rash Iodinated Contrast Media [IV Contrast Dye] Allergy (Severe, Verified 07/22/24 09:15) Rash Nursing Note Patient presents for collection of H Pylori breath test. Patient has been fasting for 1 hour (nothing to eat, drink, no chewing gum or smoking) has not taken any antacid medication for at least 2 weeks and has no allergies to artificial sweeteners.?? Assessment & Plan Assessment & Plan (1) Chronic constipation: Comment: fiber Hydrate well Code(s): K59.09 - Other constipation Category: Medical (2) Rectal bleeding: Comment: MLC hemorrhoids- will further evaluate-colonoscopy Code(s): K62.5 - Hemorrhage of anus and rectum Category: Medical Plan Patient presents for collection of H Pylori breath test. Patient has been fasting for 1 hour (nothing to eat, drink, no chewing gum or smoking) has not taken any antacid medication for at least 2 weeks and has no allergies to artificial sweeteners.???This test checks for an overgrowth of bacteria in your stomach. We all have bacteria but some may have more than others. It is treatable. if the test comes back negative there is nothing else to do. If the test result is positive we will treat you with 2 antibiotics and a medication to decrease the acid in your stomach (PPI) for 2 weeks. Two weeks after you have completed the treatment we will retest you to make sure the overgrowth has resolved. Patient Instructions: Process for specimen collection and reason for testing was explained to the patient. Specimen collection. Patient instructed to take a deep breath and then exhale into the blue bag, filling it up as much as possible. Patient instructed to drink a mixture of water and the artificial sweetener with a straw. A 15 minute wait period was observed. Patient instructed to take a deep breath and then exhale into the pink bag, filling it up as much as possible.?? Coding Level of Care Code Established Pt Est Pt Level 1 (43084) Patient Type Established Diagnoses Chronic constipation K59.09 Rectal bleeding K62.5
--- OUTSIDE RECORDS SUMMARY | 2024-07-22 09:16 | XMS_ITS | Encounter Summary ---
Author Organization [employer] Address [address] [facility] 7t [place] [address] Care Team Providers Care Neurosurgery Spine Physician Name Role Phone Kathy Mcneill MD Primary Care Provider [phone] Shayan Douglas Unavailable Unavailable Reason for Visit * Reason Comments Med Refill Encounter Details Date Type Department Care Team ([facility] st Contact Info) Description 12/28/2023 Refill [facility] CHC MED & PEDS [address] [place], [place] [phone] Kathy Mcneill MD 230 [place] [address] Migraine without aura and without status migrainosus, [...] Description 08/26/2024 3:15 PM EDT Office Visit [facility] MEDICINE 230 [place] [address] Kathy Mcneill MD [address] [place] [address] documented as of this encounter Visit Diagnoses Diagnosis Migraine without aura and without status migrainosus, not intractable documented in this encounter Additional Health Concerns Assessment Noted Time PHQ-9 Depression Total Score: 0 05/10/20 23 3:34 PM EST documented as of this encounter Care Teams Neurosurgery Spine Physician Relationship Specialty Start Date End Date Kathy Mcneill MD [address] [place] [address] PCP - General Family Medicine 01/06/22 Shayan Douglas FNP [address] [place] [address] Nurse Practitioner Family Medicine 04/16/23 documented as of this encounter
--- OUTSIDE RECORDS SUMMARY | 2024-07-22 09:17 | XMS_ITS | Encounter Summary ---
Author Organization [employer] [facility] Address [address] [facility] 7t [place] [address] Care Team Providers Care Bolting Machine Operator Name Role Phone Kathy Mcneill MD Primary Care Provider [phone] Shayan Douglas Unavailable Unavailable Reason for Visit * Reason Comments Med Refill Encounter Details Date Type Department Care Team ([facility] st Contact Info) Description 06/17/2024 Refill [facility] 230 [place], [place] [phone] Kathy Mcneill MD [address] [place] [address] Smoking Social History Tobacco Use Types Packs/Day [...] EDT Office Visit [facility] [address] [place] [address] Kathy Mcneill MD [address] [place] [address] documented as of this encounter Visit Diagnoses Diagnosis Smoking Tobacco use disorder documented in this encounter Additional Health Concerns Assessment Noted Time PHQ-9 Depression Total Score: 0 05/10/20 23 3:34 PM EST documented as of this encounter Care Teams Bolting Machine Operator Relationship Specialty Start Date End Date Kathy Mcneill MD [address] [place] [address] PCP - General Family Medicine 01/06/22 Shayan Douglas FNP [address] [place] [address] Nurse Practitioner Family Medicine 04/16/23 documented as of this encounter
--- OUTSIDE RECORDS SUMMARY | 2024-07-22 09:17 | XMS_ITS | Encounter Summary ---
Author Organization [employer] Address 75 [facility] 7t [place] [address] Care Team Providers Care Astrophysics Teacher Name Role Phone Kathy Mcneill MD Primary Care Provider [phone] Shayan Douglas Unavailable Unavailable Encounter Details Date Type Department Care Team ([facility] st Contact Info) Description 07/06/2024 Telephone [facility] MEDICINE 230 [place], [place] [phone] Kathy Mcneill MD 230 [place], [place] [phone] Social History Tobacco Use Types Packs/Day Years [...] Description 08/26/2024 3:15 PM EDT Office Visit [facility] MEDICINE 230 [place] [address] Kathy Mcneill MD [address] [place] [address] documented as of this encounter Visit Diagnoses Not on filedocumented in this encounter Additional Health Concerns Assessment Noted Time PHQ-9 Depression Total Score: 0 05/10/20 23 3:34 PM EST documented as of this encounter Care Teams Astrophysics Teacher Relationship Specialty Start Date End Date Kathy Mcneill MD [address] [place] [address] PCP - General Family Medicine 01/06/22 Shayan Douglas FNP [address] [place] [address] Nurse Practitioner Family Medicine 04/16/23 documented as of this encounter
--- OUTSIDE RECORDS SUMMARY | 2024-07-22 09:17 | XMS_ITS | Encounter Summary ---
Author Organization [employer] Address 75 [facility] 7t [place] [address] Care Team Providers Care Oscillograph Technician Name Role Phone Kathy Mcneill MD Primary Care Provider [phone] Shayan Douglas Unavailable Unavailable Encounter Details Date Type Department Care Team (Late st Contact Info) Description 07/09/2024 Orders Only [facility] External Provider, [facility] Social History Tobacco Use Types Packs/Day [...] t he electric, gas, oil or water [facility] threatened to shut off services in your [...] Description 08/26/2024 3:15 PM EDT Office Visit [facility] MEDICINE [address] [place] [address] Kathy Mcneill MD [address] [place] [address] documented as of this encounter Procedures Procedure Name Priority Date/Time Associated Diagnosis Comments [facility] LOWER EXTREMITY VENOUS DUPLEX BILATERAL Routine 07/09/2024 1:24 PM EST documented in this encounter Results * [facility] Lower Extremity Venous Duplex Bilateral (07/09/2024 1:24 PM EST) 07/09/2024 1:24 PM EST Narrative [facility] IMAGING - 07/09/2024 3:22 PM EST ? [facility] ?[address] ?[place] [address] ? Ultrasound Report ? Signed ? Patient: Andrey,Mulu ?MR#: [id number] ?? [id number] ? : 1975 ?Acct:[id number] ? Age/Sex: 49 / F ?ADM Date: 02/27/25 ? Loc: HO.US ? Attending Dr: Shirley MELTON-C ? Ordering Physician: Shirley Alexis PA-C ?? Date of Service: 07/09/24 ?? Procedure(s): US venous duplex LE BI ?? Accession Number(s): [id number] ? cc: Kathy Mcneill; Shirley Alexis PA-C [...] DD/ 1324 ? TD/TT: 07/09/24 1350 ? Nurse Sane: ? Procedure Note Donrater, Image - 07/09/2024 [place] [address] Ultrasound Report Signed Patient: Meche Balderas#: [id number] : 1975Acct:[id number] Age/Sex: 49 / FADM Date: 07/09/24 Loc: HO.US Attending Dr: Shirley Alexis PA-C Ordering Physician: Shirley Alexis PA-C Date of Service: 07/09/24 Procedure(s): US venous duplex LE BI Accession Number(s): [id number] cc: Kathy Mcneill; Shirley Alexis PA-C EXAMINATION: [...] MD Signed By: <Electronically signed by Kit Liomn MDin OV> 07/09/24 1519 DD/ 1324 TD/TT: 07/09/24 1350 Nurse Sane: [facility] External Provider CV VASC ULAR PROCEDURES Final Result [facility] IMAGING [address] [place] [phone] documented in this encounter Visit Diagnoses Not on filedocumented in this encounter Additional Health Concerns Assessment Noted Time PHQ-9 Depression Total Score: 0 05/10/20 23 3:34 PM EST documented as of this encounter Care Teams Oscillograph Technician Relationship Specialty Start Date End Date Kathy Mcneill MD [address] [place] [address] PCP - General Family Medicine 01/06/22 Shayan Douglas FNP [address] [place] [address] Nurse Practitioner Family Medicine 04/16/23 documented as of this encounter
--- OUTSIDE RECORDS SUMMARY | 2024-07-22 09:17 | XMS_ITS | Clinical Summary ---
Author Organization [employer] Address 75 [facility] 7t [place] [address] Care Team Providers Care Inventory Planner Name Role Phone Kathy Mcneill MD Primary Care Provider [phone] Shayan Douglas Unavailable Unavailable Allergies Active Allergy [...] results and refer for any abnormal to vacuum tank tender for biopsy Smoking 04/11/2023 Assessment & Plan [...] EDT): [place] Osuna [place] [facility] [place] Reassuring US in 10/2021, with simple cysts in L breast Continue q6 month followup Assessment & Plan (05/02/2022 12:11 PM EST): [place] Dr sOuna at [facility] [place] Reassuring US in 10/2021, with simple cysts Migraines 03/31/2022 Myocardial infarction 03/31/2022 Assessment & Plan (07/31/2022 11:19 AM EDT): NSTEMI, continue Bblocker, statin, ASA Vitamin D deficiency 03/31/2022 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 Assessment & Plan (05/22/2024 8:33 AM EST): Continue conservative management Assessment & Plan (07/31/2022 11:18 AM EDT): With ICA stent and resolved (according to CTA of head/neck [place] [facility]) aneurysm Will have pt return to neurovascular [...] Department Care Team Description 07/09/2024 Orders Only [facility] External Provider, [facility] 07/06/2024 Telephone [facility] MEDICINE [address] [place] [address] Kathy Mcneill MD 07/06/2024 Refill [facility] MEDICINE [address] [place] [address] Kathy Mcneill MD Right sided sciatica 07/06/2024 Telephone [facility] MEDICINE [address] [place] [address] Kathy Mcneill MD 06/17/2024 Refill [facility] MEDICINE [address] [place] [address] Kathy Mcneill MD Smoking 06/15/2024 Refill [facility] MEDICINE [address] [place] [address] Kathy Mcneill MD Other specified anxiety disorders 06/08/2024 Refill [facility] MEDICINE [address] [place] [address] Kathy Mcneill MD Smoking 05/26/2024 Refill [facility] MED & PEDS [address] [place], [place] [phone] Kathy Mcneill MD Migraine without aura and without status migrainosus, not intractable 05/19/2024 10:15 AM EST Office Visit [facility] MEDICINE [address] [place] [address] Kathy Mcneill MD Secondary hypertension (Primary Dx); Anxious depression; Localized swelling of left lower extremity; Cerebral aneurysm without rupture; Obstructive sleep apnea; Arterial fibromuscular dysplasia (CMS/HCC); Ductal carcinoma in situ (DCIS) of right breast; Helicobacter pylori (H. pylori) infection; Muscle spasm 05/19/2024 Travel 05/18/2024 Travel 05/15/2024 Refill [facility] PEDS [address] [place] [address] Kathy Mcneill MD Migraine without aura and without status migrainosus, not intractable 04/29/2024 Telephone [facility] MEDICINE [address] [place] [address] Ade Limon RN Results; Interoffice Communication 04/28/2024 [...] Influenza, seasonal, injecta ble, preservative free 01/27/2024 [employer] Covid-19 Vaccine 12+ 03/02/2021,,06/25/2020 TD (adult), 2 [...] Description 08/26/2024 3:15 PM EDT Office Visit [facility] MEDICINE [address] [place] [address] Kathy Mcneill MD [address] [place], [place] [phone] Health Maintenance Due Date Last Done Comments [...] Procedure Name Priority Date/Time Associated Diagnosis Comments [facility] US LOWER EXTREMITY VENOUS DUPLEX BILATERAL Routine [...] Recently Relevant to Health Maintenance Results * [facility] US Lower Extremity Venous Duplex Bilateral (07/09/2024 1:24 PM EST) 07/09/2024 1:24 PM EST Narrative [facility] IMAGING - 07/09/2024 3:22 PM EST ? [facility] ?[address] ?[place] [address] ? Ultrasound Report ? Signed ? Patient: Andrey,Mulu ?MR#: [id number] ?? [id number] ? : 1975 ?Acct:[id number] ? Age/Sex: 49 / F ?ADM Date: 07/09/24 ? Loc: HO.US ? Attending Dr: Shirley Alexis PA-C ? Ordering Physician: Shirley Alexis PA-C ?? Date of Service: 07/09/24 ?? Procedure(s): US venous duplex LE BI ?? Accession Number(s): [id number] ? cc: Kathy Mcneill; Shirley Alexis PA-C [...] DD/ 1324 ? TD/TT: 07/09/24 1350 ? Air Compressor Engineer: ? Procedure Note Josefina Perez - 07/09/[address] [address] Ultrasound Report Signed Patient: Mulu Balderas#: [id number] : 1975Acct:[id number] Age/Sex: 49 / FADM Date: 07/09/24 Loc: HO.US Attending Dr: Shirley Alexis PA-C Ordering Physician: Shirley Alexis PA-C Date of Service: 07/09/24 Procedure(s): US venous duplex LE BI Accession Number(s): [id number] cc: Wong Mcneill Karen S PA-C EXAMINATION: [...] 07/09/24 1519 DD/ 1324 TD/TT: 07/09/24 1350 Air Compressor Engineer: us [facility] External Provider CV VASC ULAR PROCEDURES Final Result [facility] IMAG[facility] [address] [place] [address] [phone] * Helicobacter pylori, Urea Breath Test (04/28/2024 1:07 PM EST) Pathologist [facility] H. pylori Breath Test Positive Negative [facility] Comment:Antimicrobials, prot on pump inhibitors and bismuthpreparations are known to suppress H. pylori. Ingestingthese medications within two weeks prior to performing thebreath test may produce negative test results. A positiveresult is still clinically valid. 04/28/2024 1:07 PM EST 04/28/2024 1:33 PM EST us Generic External Data Provider LAB BLOOD ORDERAB LES Final Result [facility] [address] [place] [phone] * HPV mRNA E6/E7 w/Reflex to HPV Genotypes 16, 18/45 (05/10/2023 4:56 PM EST) Pathologist [facility] HPV nRNA E6/E7 Not Detected Not Detected [facility] Comment:Methodology: Transcr iption-Mediated AmplificationThis assay detects E6/E7 viral messenger RNA (mRNA) from 14high-risk HPV types (16,18,31,33,35,39,45,51,52,56,58,59,66,68).Cervical sources are required for HPV testing.If a vaginal source from a patient who has had atotal hysterectomy with removal of cervix wassubmitted, please contact the testing laboratoryfor alternative testing options.For additional information, please refer tohttp://education.[employer]/faq/HYX459v2(This link if provided for information/educational purposes only.)THIS TEST WAS PERFORMED AT:[facility] [place] [phone] CRUZ MD HPV mRNA E6/E7 [facility] HPV 16 RNA [facility] HPV 18/45 RNA [facility] 05/10/2023 4:56 PM EST 05/14/2023 8:00 AM EST Kathy Mcneill MD LAB CYTOLOGY ORDERABLES Final Result [facility] [address] [place] [phone] * Pap Smear (05/10/2023 4:56 PM EST) 05/10/2023 4:56 PM EST 05/14/2023 8:00 AM EST Narrative [facility] - 05/17/2023 1:44 PM EST ----- ------- Name: Mulu Balderas ?Age/Sex: 48/F ? : 1975 Unit#: [id number] ?? Attend Dr: Kathy Mcneill ?Re05/10/23 ?Status: DEP REF ? Location: HO.HHCLNP ? Disch: ? ----- ------- SPEC : [id number] ? RECD: 05/14/23 ? STATUS: ??SOUT ? REQ NUM: [id number] ? NORTH: 05/10/23 ? SUBM DR: Kathy [...] 66, 68) ?? HPV testing performed by [facility], [place], [place]. ??See reference laboratory ?? portion of the EMR for entire report. ?Clinical Information LMP: Menopause Previous PAP test: Unknown date/findings ? Material Received ?? ThinPrep-Cervical ----- ------- Signed (signature on file) INNA Cobb ([facility]) 05/17/23 1344 ? ----- ------- ? END OF REPORT ? Kathy Mcneill MD LAB CYTOLOGY ORDERABLES Final Result Performing Organization Address [facility] Co de Phone Number [facility] [address] [place] [phone] * Hepatitis C Ab (04/08/2023 2:44 PM EST) [facility] Hepatitis C Antibody Nonreactive Nonreactive [facility] Comment:Antibodies to HCV no t detected; does not exclude early acuteHCV infection. Blood Venous blood specimen / Unknown 04/08/2023 2:44 PM EST 04/08/2023 4:15 PM EST Kathy Mcneill MD LAB BLOOD ORDERABLES Final Res ult Performing Organization Address [facility] Co de Phone Number [facility] [address] [place] [address] [phone] * HIV-1/2 Antigen and Antibodies, Fourth Generation, with Reflexes (04/08/2023 2:44 PM EST) Pathologist [facility] HIV AB/AG Nonreactive Nonreactive [facility] Comment:HIV-1 p24 Ag and/or HIV-1/HIV-2 Ab not detected.A test result that is nonreactive does not exclude thepossibility of exposure to or infection with HIV-1 and/orHIV-2. Nonreactive results in this assay for individualswith prior exposure to HIV-1 and/or HIV-2 may be due toantigen and antibody levels that are below the limit ofdetection of this assay.The [employer] HIV Ag/Ab Combo assay result andsupplemental assay results should be interpreted inconjunction with the patient's clinical presentation,history and other laboratory results. If the results areinconsistent with clinical evidence, additional testing issuggested to confirm the result. Blood Venous blood specimen / Unknown 04/08/2023 2:44 PM EST 04/08/2023 4:15 PM EST us Kathy Mcneill MD LAB BLOOD ORDERABLES Final Res ult [facility] [address] [place] [phone] * (ABNORMAL) LIPID PANEL, STANDARD (01/18/2021 2:59 PM EDT) Chol/HDLC Ratio 2.6 <5.0 (calc) [facility] Cholesterol, Total 115 <200 mg/dL [facility] HDL Cholesterol 44(L) > OR = 50 mg/dL [facility] LDL Cholesterol 51 mg/dL (calc) [facility] Comment: Reference range: <100 ?? [...] ?? Johnnie DELGADO et al. LAURENT. 2013;310(19): 5059-3457 ?? (http://education.[employer].com/faq/MGT397) Non-HDL Cholesterol 71 <130 mg/dL (calc) [facility] Comment: For patients with diabetes plus 1 major ASCVD risk ?? factor, treating to a non-HDL-C goal of <100 mg/dL ?? (LDL-C of <70 mg/dL) is considered a therapeutic ?? option. Triglycerides 110 <150 mg/dL [facility] 01/18/2021 2:59 PM EDT us Dayan Diez CHIEF ACCOUNTING OFFICER LAB BLOOD ORDERABLES Final Res ult [facility] [address] [place] [address], from Last 3 Months or Most Recently Relevant to Health Maintenance Insurance [place], [place] [employer] Care Teams Inventory Planner Relationship Specialty Start Date End Date Kathy Mcneill MD [address] [place] [address] PCP - General Family Medicine 01/06/22 Shayan Douglas FNP [address] [place] [address] Nurse Practitioner Family Medicine 04/16/23
--- OUTSIDE RECORDS SUMMARY | 2024-07-22 09:17 | XMS_ITS | Encounter Summary ---
Author Organization [employer] [facility] Address 75 [facility] 7t [place] [address] Care Team Providers Care Casing Blower Name Role Phone Kathy Mcneill MD Primary Care Provider [phone] Shayan Douglas Unavailable Unavailable Reason for Visit * Reason Comments Med Refill Encounter Details Date Type Department Care Team ([facility] st Contact Info) Description 06/08/2024 Refill [facility] MEDICINE [address] [place], [place] [phone] Kathy Mcneill MD [address] [place] [address] Smoking Social History Tobacco Use Types Packs/Day [...] 08/26/2024 3:15 PM EDT Office Visit [facility] MEDICINE [address] [place] [address] Kathy Mcneill MD [address] [place] [address] documented as of this encounter Visit Diagnoses Diagnosis Smoking Tobacco use disorder documented in this encounter Additional Health Concerns Assessment Noted Time PHQ-9 Depression Total Score: 0 05/10/20 23 3:34 PM EST documented as of this encounter Care Teams Casing Blower Relationship Specialty Start Date End Date Kathy Mcneill MD [address] [place] [address] PCP - General Family Medicine 01/06/22 Shayan Douglas FNP [address] [place] [address] Nurse Practitioner Family Medicine 04/16/23 documented as of this encounter
--- OUTSIDE RECORDS SUMMARY | 2024-07-22 09:17 | XMS_ITS | Encounter Summary ---
Author Organization [employer] Address [address] [facility] 7t [place] [address] Care Team Providers Care Electrician Helper Name Role Phone Kathy Mcneill MD Primary Care Provider [phone] Shayan Douglas Unavailable Unavailable Reason for Visit * Reason Comments Med Refill Encounter Details Date Type Department Care Team (Late st Contact Info) Description 02/22/2023 Refill [facility] CH[facility] MED & PEDS [address] [place], [place] [phone] Kathy Mcneill MD [address] [place] [address] Migraine without aura and without status migrainosus, [...] 08/26/2024 3:15 PM EDT Office Visit [facility] MEDICINE [address] [place] [address] Kathy Mcneill MD [address] [place] [address] documented as of this encounter Visit Diagnoses Diagnosis Migraine without aura and without status migrainosus, not intractable documented in this encounter Additional Health Concerns Assessment Noted Time PHQ-9 Depression Total Score: 4 02/05/20 23 3:48 PM EDT documented as of this encounter Care Teams Electrician Helper Relationship Specialty Start Date End Date Kathy Mcneill MD [address] [place] [phone] PCP - General Family Medicine 01/06/22 Shayan Douglas FNP [address] [place] [address] Nurse Practitioner Family Medicine 04/16/23 documented as of this encounter
--- OUTSIDE RECORDS SUMMARY | 2024-07-22 09:17 | XMS_ITS | Encounter Summary ---
Author Organization [employer] Address 75 [facility] 7t [place] [address] Care Team Providers Care Cigar Head Stringer Name Role Phone Kathy Mcneill MD Primary Care Provider [phone] Shayan Douglas Unavailable Unavailable Encounter Details Date Type Department Care Team ([facility] st Contact Info) Description 07/06/2024 Telephone [facility] MEDICINE [address] [place], [place] [phone] Kathy Mcneill MD [address] [place], [place] [phone] Social History Tobacco Use Types Packs/Day Years [...] Description 08/26/2024 3:15 PM EDT Office Visit [facility] MEDICINE [address] [place] [address] Kathy Mcneill MD [address] [place] [address] documented as of this encounter Visit Diagnoses Not on filedocumented in this encounter Additional Health Concerns Assessment Noted Time PHQ-9 Depression Total Score: 0 05/10/20 23 3:34 PM EST documented as of this encounter Care Teams Cigar Head Stringer Relationship Specialty Start Date End Date Kathy Mcneill MD [address] [place] [address] PCP - General Family Medicine 01/06/22 Shayan Douglas FNP [address] [place] [address] Nurse Practitioner Family Medicine 04/16/23 documented as of this encounter
--- OUTSIDE RECORDS SUMMARY | 2024-07-22 09:17 | XMS_ITS | Encounter Summary ---
Author Organization [employer] Address [address] [facility] 7t [place] [address] Care Team Providers Care Bill Distributor Name Role Phone Kathy Mcneill MD Primary Care Provider [phone] Shayan Douglas Unavailable Unavailable Reason for Visit * Reason Comments Med Refill Encounter Details Date Type Department Care Team ([facility] st Contact Info) Description 05/15/2024 Refill [facility] CHC MED & PEDS [address] [place], [place] [phone] Kathy Mcneill MD [address] [place] [address] Migraine without aura and without status migrainosus, [...] Description 08/26/2024 3:15 PM EDT Office Visit [facility] MEDICINE [address] [place] [address] Kathy Mcneill MD [address] [place] [address] documented as of this encounter Visit Diagnoses Diagnosis Migraine without aura and without status migrainosus, not intractable documented in this encounter Additional Health Concerns Assessment Noted Time PHQ-9 Depression Total Score: 0 05/10/20 23 3:34 PM EST documented as of this encounter Care Teams Bill Distributor Relationship Specialty Start Date End Date Kathy Mcneill MD [address] [place] [address] PCP - General Family Medicine 01/06/22 Shayan Douglas FNP [address] [place] [address] Nurse Practitioner Family Medicine 04/16/23 documented as of this encounter
--- OUTSIDE RECORDS SUMMARY | 2024-07-22 09:17 | XMS_ITS | Encounter Summary ---
Author Organization [employer] Address 75 [facility] 7t [place] [address] Care Team Providers Care Steam Fitter Helper Name Role Phone Kathy Mcneill MD Primary Care Provider [phone] Shayan Douglas Unavailable Unavailable Encounter Details Date Type Department Care Team ([facility] st Contact Info) Description 05/15/2023 Orders Only [facility] MEDICINE [address] [place], [place] [phone] Kathy Mcneill MD [address] [place], [place] [phone] Social History Tobacco Use Types Packs/Day Years [...] Description 08/26/2024 3:15 PM EDT Office Visit [facility] MEDICINE [address] [place], [place] [phone] Kathy Mcneill MD [address] [place] [address] documented as of this encounter Procedures Procedure Name Priority Date/Time Associated Diagnosis Comments US VENOUS DUPLEX LE LT Routine 05/20/2023 1:16 PM EST documented in this encounter Results * US VENOUS DUPLEX LE LT (05/20/2023 1:16 PM EST) Anatomical Region Laterality Modality Abdomen Ultrasound 05/20/2023 1:16 PM EST Narrative 05/20/2023 1:43 PM EST ? [facility] ?[address] ? [place] [address] ? Ultrasound Report ? Signed ? Patient: Andrey,Mulu ?MR#: [id number] ?? [id number] ? : 1975 ?Acct:[id number] ? Age/Sex: 48 / F ?ADM Date: 01/08/24 ? Loc: HO.HMGCX ? Attending Dr: Kathy Mcneill MD ? Ordering Physician: Kathy Mcneill ?? Date of Service: 05/20/23 ?? Procedure(s): US venous duplex LE LT ?? Accession Number(s): [id number] ? cc: Kathy Mcneill ? EXAMINATION: ? [...] 1339 ? DD/ 1316 ? TD/TT: ? School Laboratory Technician: ? Procedure Note Ana, Image - 05/20/2023 [facility] [address] [place] [address] [place] [address] Ultrasound Report Signed Patient: Mulu Balderas#: [id number] : 1975Acct:[id number] Age/Sex: 48 / FADM Date: 05/20/23 Loc: HO[facility] Attending Dr: Kathy Mcneill MD Ordering Physician: Kathy Mcneill Date of Service: 05/20/23 Procedure(s): US venous duplex LE LT Accession Number(s): [id number] cc: Kathy Mcneill EXAMINATION: US VENOUS ULTRASOUND [...] in OV> 05/20/23 1339 DD/ 1316 TD/TT: School Laboratory Technician: us Kathy Mcneill MD IMG US PROCEDURES Final Result documented in this encounter Visit Diagnoses Not on filedocumented in this encounter Additional Health Concerns Assessment Noted Time PHQ-9 Depression Total Score: 0 05/10/20 23 3:34 PM EST documented as of this encounter Care Teams Steam Fitter Helper Relationship Specialty Start Date End Date Kathy Mcneill MD [address] [place] [address] PCP - General Family Medicine 01/06/22 Shayan Douglas FNP [address] [place] [address] Nurse Practitioner Family Medicine 04/16/23 documented as of this encounter
--- OUTSIDE RECORDS SUMMARY | 2024-07-22 09:17 | XMS_ITS | Encounter Summary ---
Author Organization [employer] Address [address] [facility] 7t [place] [address] Care Team Providers Care Waiter/Waitress Dining Car Name Role Phone Kathy Mcneill MD Primary Care Provider [phone] Shayan Douglas Unavailable Unavailable Encounter Details Date Type Department Care Team (Late st Contact Info) Description 07/06/2024 Refill [facility] MEDICINE [address] [place], [place] [phone] Kathy Mcneill MD [address] [place], [place] [phone] Right sided sciatica Social History Tobacco Use [...] Office Visit [facility] MEDICINE [address] [place] [address] Kathy Mcneill MD [address] [place] [address] documented as of this encounter Visit Diagnoses Diagnosis Right sided sciatica Sciatica documented in this encounter Additional Health Concerns Assessment Noted Time PHQ-9 Depression Total Score: 0 05/10/20 3:34 PM EST documented as of this encounter Care Teams Waiter/Waitress Dining Car Relationship Specialty Start Date End Date Kathy Mcneill MD [address] [place] [phone] PCP - General Family Medicine 01/06/22 Shayan Douglas FNP [address] [place] [phone] Nurse Practitioner Family Medicine 04/16/23 documented as of this encounter
== END 2024-07-22 09:22 | disposition home or self-care (01) ==
LOC: HO.HGI 08:45
PROVIDERS: PCP General Practice; Visit Provider Internal Medicine Gastroenterology
DX: K59.09 Other constipation (principal); K62.5 Hemorrhage of anus and rectum

== ENCOUNTER 2024-08-12 13:02 | Outpatient (AMB) | payer MEDICAID, SELFPAY ==
--- NOTE | 2024-08-12 13:04 | MHC.OFFVIS ---
Vital Signs 08/12/24 13:07 Height 5 ft 2 in Weight 126 lb 15.78 oz BMI 23.2 BP 130/70 Blood Pressure Location Lt brachial Position Sitting Pulse 76 Pulse Source Monitor Intake Visit Reasons: 6 mth f/up Intake Note: 6 mth f/up/palpitations/ dizziness Job Site Supervisor Required: No Accompanied by: Self / Same As Patient Allergies Gadolinium-Containing Contrast Medi Allergy (Severe, Verified 07/22/24 09:15) Rash Iodinated Contrast Media [IV Contrast Dye] Allergy (Severe, Verified 07/22/24 09:15) Rash Medication List - Last Reconciled 08/12/24 by Jose A Gaona MD amlodipine 10 mg PO DAILY aspirin 81 mg PO DAILY atorvastatin 40 mg PO BEDTIME bismuth subsalicylate 2 tabs PO QID 10 days bupropion HCl SR 150 mg PO DAILY gabapentin 100 mg PO DAILY PRN hydroxyzine pamoate 25 mg PO BEDTIME PRN levothyroxine 125 mcg PO DAILY metoprolol succinate ER 100 mg PO BID metronidazole 500 mg PO TID 10 days mirtazapine 30 mg PO DAILY ondansetron 4 mg PO Q8H PRN pantoprazole 20 mg PO BID 2 weeks pantoprazole 20 mg PO BID 10 days tetracycline 500 mg PO Q6H 10 days topiramate 100 mg PO BEDTIME valsartan 160 mg PO DAILY HPI Comments Details: Very pleasant 49-year-old female here for follow-up. She was seen in December 2020 when she presented to [facility] with chest pain and ruled in for NSTEMI. 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 She was conservatively managed. She also had cerebral aneurysm which was treated with pipeline Shield stent. She had minor stroke after that. On last visit she was complaining of palpitations. She was referred for 3 Holter monitor. This showed sinus rhythm with average heart rate 2 beats per minute, no significant pauses or bradycardia noted. 159 PVCs were noted. 04/25/22: She is here for follow-up. She is saying her blood pressure was fluctuating up and down had her amlodipine was increased to 10 mg daily. Her blood pressure in the office currently stable. She is denying any chest discomfort or shortness of breath currently. She is complaining of palpitations. 12/05/22: She is here for follow-up. She was seen in August by Teresa. She is complaining her blood pressure has been rising and at times she has noticed her blood pressure to be as high as 180s. She checks with her own automated blood pressure cuff at home. She has been taking amlodipine 10 mg and metoprolol succinate 50 mg twice a day. She also gets some sharp left-sided chest pains. She is describing stabbing sensation which also happens when she has elevated blood pressure. She has background of fibromuscular dysplasia. 01/30/23: Returns for follow-up. On last visit we added valsartan 80 mg once a day but it appears her pharmacy did not added to her medication box. She is only taking metoprolol and amlodipine currently. Her blood pressure in the office is 144/86. At home she had blood pressures as high as 180s. She said she had some visual changes and was not feeling well and at that time her blood pressure was checked by a nurse and blood pressure was 180s systolic. This improved with rest. Denying any other symptoms. 04/15/23: She is here for f/u. She has been feeling fine. No chest pain or shortness of breath. Occasionally when she is stressed she gets palpitations lasting for few seconds. Today after checking her blood pressure the RN told her that her blood pressure was good and even that cause some palpitations. She is saying that she gets 7 she is excited or under stress. No prolonged episodes. 07/31/23: She returns for follow-up. She has been doing well. Occasional palpitations. 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 She has no chest pains or any other symptoms. We discussed about her underlying medical issues including SCAD in the past. We have decided do an exercise stress test which we will arrange. 12/04/23: She is here for f/u. BP is high. No CP or SOB. 02/17/2024: She is here for follow-up. Blood pressure is well controlled. No chest pain or shortness of breath. She just underwent breast surgery. She is due to get a screening colonoscopy next week. She is asking whether she can undergo anesthesia soon after doing breast surgery recently. I have advised her that this is up to her and if she feels up to it she should consider going for colonoscopy-this is elective procedure. 08/12/2024: She is here for follow-up. She is complaining of palpitations which are happening up to 7 to 8 times a week. She feels her heart is racing. At times she wakes up from sleep with palpitations and started feeling. Denying any chest discomfort shortness of breath. Otherwise doing well blood pressure is well controlled. Taking medications regularly. [facility] Medical History Fibromuscular dysplasia History of COVID-19 Sleep apnea History of radiation therapy Stroke Aneurysm NSTEMI (non-ST elevated myocardial infarction) Gout Hypertension Hypothyroidism Ductal carcinoma in situ (DCIS) of right breast Surgical History History of lumpectomy of left breast (02/12/24) History of removal of cyst History of breast lump/mass excision (07/09/22) Status post cardiac catheterization History of right breast biopsy (09/08/19) History of endometrial ablation (2010) History of bilateral tubal ligation (2003) History of lumpectomy of right breast (10/07/19) Family History Daughter Thyroid cancer Paternal Grandmother Breast cancer Thyroid cancer Diabetes Sister Diabetes HTN (hypertension) Sister HTN (hypertension) Sister HTN (hypertension) Sister HTN (hypertension) Sister HTN (hypertension) Father Brain tumor Mother Heart attack Social History Household Members: Other Household Members Other:: daughter Housing: Apartment Are you a primary career development coordinator/teacher to a significant other at home: No Do you presently have visiting nurse or other home services: No 75 years or older and lives alone: No Alcohol intake: former Year quit: 2020 Patient Tobacco Use Status: Former Tobacco user Tobacco use type: Cigarette Years Smoked: 10 +/- service: No Current occupational status: employed Current occupation: rt handed Review of Systems Const Denies chills, Denies fatigue, Denies fever(s), Denies frequent falls, Denies weakness, Denies weight gain and Denies weight loss ENT Reports dizziness Card Denies chest pain, Denies leg edema, Denies lightheadedness, Denies palpitations, Denies dyspnea and Denies dyspnea on exertion Resp Denies cough, Denies dyspnea and Denies dyspnea on exertion GI Denies hematochezia Musc Denies abnormal gait, Denies muscle weakness, Denies numbness, Denies radiating pain into limb and Denies tingling Neuro Denies abnormal gait, Reports dizziness, Denies frequent falls, Denies numbness, Denies tingling and Denies weakness Endo Denies fatigue and Denies palpitations Physical Exam Vital Signs: Last Vital Signs Pulse 76 08/12/24 13:07 BP 130/70 08/12/24 13:07 BMI result Body Mass Index 23.2 GENERAL APPEARANCE: in no acute distress, pleasant. NECK: no carotid bruit, no jugular venous distention. SKIN: no suspicious lesions, warm and dry. HEART: no murmurs, regular rate and rhythm. LUNGS: clear to auscultation bilaterally. ABDOMEN: soft, nontender. EXTREMITIES: no edema. PERIPHERAL PULSES: equal. NEUROLOGIC: No gross deficits, AAO X 3 Office Procedures EKG Details: Sinus rhythm 76 beats per minute, normal axis, nonspecific ST changes, QTC 434 milliseconds. 47611-[id number], Complete Assessment & Plan Assessment & Plan (1) Hypertension: Code(s): I10 - Essential (primary) hypertension Category: Medical (2) Fibromuscular dysplasia: Code(s): I77.3 - Arterial fibromuscular dysplasia Category: Medical (3) Coronary artery dissection: Code(s): I25.42 - Coronary artery dissection Category: Medical (4) Palpitations: Code(s): R00.2 - Palpitations Category: Medical Plan Very pleasant 49 year female who is here for follow-up. 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 She has been doing well from coronary artery dissection viewpoint and has not had any further symptoms. She is on beta-shyam which will be continued long-term. Blood pressure is well controlled. She is on baby aspirin. See complaining of palpitations which happening 7-8 times per week. She describes racing of her heart at rest. We will arrange a 7 days Holter monitor for her. She will see us back in few months. Thank you for allowing me to participate in the care of your patient. Please feel free to contact me if you have any questions. Orders: Orders ECG 7 day holter monitor Today R00.2 - Palpitations Coding Level of Care Code Est Pt Level 4 (64260) Complex EM visit Add On G2211 Diagnoses Hypertension I10 Fibromuscular dysplasia I77.3 Coronary artery dissection I25.42 Palpitations R00.2 CPT Codes EKG - CPT: 49516-[id number], Complete ([id number])
[2024-08-12 13:07] VITALS: BP 130/70; PULSE 76; BMI 23.2
--- OUTSIDE RECORDS SUMMARY | 2024-08-12 15:40 | XMS_ITS | Encounter Summary ---
Author Organization [employer] [facility] Address [address] [facility] 7t [place] [address] Care Team Providers Care Room Service Manager Name Role Phone Kathy Mcneill MD Primary Care Provider [phone] Shayan Douglas Unavailable Unavailable Reason for Visit * Reason Comments Med Refill Encounter Details Date Type Department Care Team ([facility] st Contact Info) Description 06/17/2024 Refill [facility] [address] [place], [place] [phone] Kathy Mcneill MD 230 [place] [address] Smoking Social History Tobacco Use Types Packs/Day [...] Description 08/26/2024 3:15 PM EDT Office Visit [facility] [address] [place] [address] Kathy Mcneill MD [address] [place] [address] documented as of this encounter Visit Diagnoses Diagnosis Smoking Tobacco use disorder documented in this encounter Additional Health Concerns Assessment Noted Time PHQ-9 Depression Total Score: 0 05/10/20 23 3:34 PM EST documented as of this encounter Care Teams Room Service Manager Relationship Specialty Start Date End Date Kathy Mcneill MD [address] [place] [address] PCP - General Family Medicine 01/06/22 Shayan Douglas FNP [address] [place] [address] Nurse Practitioner Family Medicine 04/16/23 documented as of this encounter
--- OUTSIDE RECORDS SUMMARY | 2024-08-12 15:40 | XMS_ITS | Encounter Summary ---
Author Organization [employer] Address [address] [facility] 7t [place] [address] Care Team Providers Care Mosaic Tiler Name Role Phone Kathy Mcneill MD Primary Care Provider [phone] Shayan Douglas Unavailable Unavailable Reason for Visit * Reason Comments Med Refill Encounter Details Date Type Department Care Team ([facility] st Contact Info) Description 05/15/2024 Refill [facility] [address] [place], [place] [phone] Kathy Mcneill MD [address] [place] [address] Migraine without aura and without status migrainosus, [...] Description 08/26/2024 3:15 PM EDT Office Visit [facility] [address] [place] [address] Kathy Mcneill MD [address] [place] [address] documented as of this encounter Visit Diagnoses Diagnosis Migraine without aura and without status migrainosus, not intractable documented in this encounter Additional Health Concerns Assessment Noted Time PHQ-9 Depression Total Score: 0 05/10/20 23 3:34 PM EST documented as of this encounter Care Teams Mosaic Tiler Relationship Specialty Start Date End Date Kathy Mcneill MD [address] [place] [address] PCP - General Family Medicine 01/06/22 Shayan Douglas FNP [address] [place] [address] Nurse Practitioner Family Medicine 04/16/23 documented as of this encounter
--- OUTSIDE RECORDS SUMMARY | 2024-08-12 15:40 | XMS_ITS | Encounter Summary ---
Author Organization [facility] Address [address] [facility] 7t [place] [address] Care Team Providers Care Automotive Sales Professional Name Role Phone Kathy Mcneill MD Primary Care Provider [phone] Shayan Douglas Unavailable Unavailable Reason for Visit * Reason Comments Med Refill Encounter Details Date Type Department Care Team ([facility] st Contact Info) Description 06/08/2024 Refill [facility] [address] [place], [place] [phone] Kathy Mcneill MD [address] [place] [address] Smoking Social History Tobacco Use Types Packs/Day [...] Description 08/26/2024 3:15 PM EDT Office Visit [facility] [address] [place] [address] Kathy Mcneill MD [address] [place] [address] documented as of this encounter Visit Diagnoses Diagnosis Smoking Tobacco use disorder documented in this encounter Additional Health Concerns Assessment Noted Time PHQ-9 Depression Total Score: 0 05/10/20 23 3:34 PM EST documented as of this encounter Care Teams Automotive Sales Professional Relationship Specialty Start Date End Date Kathy Mcneill MD [address] [place] [address] PCP - General Family Medicine 01/06/22 Shayan Douglas FNP [address] [place] [address] Nurse Practitioner Family Medicine 04/16/23 documented as of this encounter
--- OUTSIDE RECORDS SUMMARY | 2024-08-12 15:40 | XMS_ITS | Encounter Summary ---
Author Organization [employer] Address [address] [facility] 7t [place] [address] Care Team Providers Care Psychologist Developmental Name Role Phone Kathy Mcneill MD Primary Care Provider [phone] Shayan Douglas Unavailable Unavailable Reason for Visit * Reason Comments Med Refill Encounter Details Date Type Department Care Team ([facility] st Contact Info) Description 12/28/2023 Refill [facility] [address] [place], [place] [phone] Kathy Mcneill MD [address] [place] [address] Migraine without aura and without status migrainosus, [...] 3:15 PM EDT Office Visit [facility] [address] [place] [address] Kathy Mcneill MD [address] [place] [address] documented as of this encounter Visit Diagnoses Diagnosis Migraine without aura and without status migrainosus, not intractable documented in this encounter Additional Health Concerns Assessment Noted Time PHQ-9 Depression Total Score: 0 05/10/20 23 3:34 PM EST documented as of this encounter Care Teams Psychologist Developmental Relationship Specialty Start Date End Date Kathy Mcneill MD [address] [place] [phone] PCP - General Family Medicine 01/06/22 Shayan Douglas FNP [address] [place] [address] Nurse Practitioner Family Medicine 04/16/23 documented as of this encounter
--- OUTSIDE RECORDS SUMMARY | 2024-08-12 15:40 | XMS_ITS | Encounter Summary ---
Author Organization [employer] Address [address] [facility] 7t [place] [address] Care Team Providers Care Sustainable Design Coordinator Name Role Phone Kathy Mnceill MD Primary Care Provider Shayan Douglas Unavailable Unavailable Encounter Details Date Type Department Care Team ([facility] st Contact Info) Description 07/06/[address] [facility]INE [address] [place], [place] [phone] Kathy Mcneill MD [address] [place], [place] [phone] Social History Tobacco Use Types Packs/Day Years [...] 3:15 PM EDT Office Visit [facility] [address] [place] [address] Kathy Mcneill MD [address] [place] [address] documented as of this encounter Visit Diagnoses Not on filedocumented in this encounter Additional Health Concerns Assessment Noted Time PHQ-9 Depression Total Score: 0 05/10/20 23 3:34 PM EST documented as of this encounter Care Teams Sustainable Design Coordinator Relationship Specialty Start Date End Date Kathy Mcneill MD [address] [place] [address] PCP - General Family Medicine 01/06/22 Shayan Douglas FNP [address] [place] [address] Nurse Practitioner Family Medicine 04/16/23 documented as of this encounter
--- OUTSIDE RECORDS SUMMARY | 2024-08-12 15:40 | XMS_ITS | Encounter Summary ---
Author Organization [employer] [facility] Address [address] [place] [address] 7t [place] [address] Care Team Providers Care Cafeteria Attendant Name Role Phone Kathy Mcneill MD Primary Care Provider [phone] Shayan Douglas Unavailable Unavailable Reason for Visit * Reason Onset Date Comments Med Refill 07/22/2024 Encounter Details Date Type Department Care Team ([facility] st Contact Info) Description 07/22/2024 Refill [facility] [address] [place] [address] Kathy Mcneill MD [address] [place] [address] Social History Tobacco Use Types Packs/Day Years [...] Description 08/26/2024 3:15 PM EDT Office Visit [facility] [address] [place] [address] Kathy Mcneill MD [address] [place] [address] documented as of this encounter Visit Diagnoses Not on filedocumented in this encounter Additional Health Concerns Assessment Noted Time PHQ-9 Depression Total Score: 0 05/10/20 23 3:34 PM EST documented as of this encounter Care Teams Cafeteria Attendant Relationship Specialty Start Date End Date Kathy Mcneill MD [address] [place] [address] PCP - General Family Medicine 01/06/22 Shayan Douglas FNP [address] [place] [address] Nurse Practitioner Family Medicine 04/16/23 documented as of this encounter
--- OUTSIDE RECORDS SUMMARY | 2024-08-12 15:40 | XMS_ITS | Encounter Summary ---
Author Organization [employer] Address [address] [facility] 7t [place] [address] Care Team Providers Care Supervisor Unloading Name Role Phone Kathy Mcneill MD Primary Care Provider [phone] Shayan Douglas Unavailable Unavailable Encounter Details Date Type Department Care Team ([facility] st Contact Info) Description 07/06/2024 Telephone [facility] [address] [place], [place] [phone] Kathy Mcneill MD [address] [place], [place] [phone] Social History Tobacco Use Types Packs/Day Years [...] Description 08/26/2024 3:15 PM EDT Office Visit [facility] [address] [place] [address] Kathy Mcneill MD [address] [place] [address] documented as of this encounter Visit Diagnoses Not on filedocumented in this encounter Additional Health Concerns Assessment Noted Time PHQ-9 Depression Total Score: 0 05/10/20 23 3:34 PM EST documented as of this encounter Care Teams Supervisor Unloading Relationship Specialty Start Date End Date Kathy Mcneill MD [address] [place] [address] PCP - General Family Medicine 01/06/22 Shayan Douglas FNP [address] [place] [address] Nurse Practitioner Family Medicine 04/16/23 documented as of this encounter
--- OUTSIDE RECORDS SUMMARY | 2024-08-12 15:40 | XMS_ITS | Encounter Summary ---
Author Organization [employer] Address [address] [facility] 7t [place] [address] Care Team Providers Care Glaze Wiper Name Role Phone Kathy Mcneill MD Primary Care Provider [phone] Shayan Douglas Unavailable Unavailable Encounter Details Date Type Department Care Team ([facility] st Contact Info) Description 05/15/2023 Orders Only [facility] [address] [place], [place] [phone] Kathy Mcneill MD [address] [place], [place] [phone] Social History Tobacco Use Types Packs/Day Years [...] 08/26/2024 3:15 PM EDT Office Visit [facility] [address] [place], [place] [phone] Kathy Mcneill MD [address] [place] [address] documented as of this encounter Procedures Procedure Name Priority Date/Time Associated Diagnosis Comments US VENOUS DUPLEX LE LT Routine 05/20/2023 1:16 PM EST documented in this encounter Results * US VENOUS DUPLEX LE LT (05/20/2023 1:16 PM EST) Anatomical Region Laterality Modality Abdomen Ultrasound 05/20/2023 1:16 PM EST Narrative 05/20/2023 1:43 PM EST ? [facility] ?[address] ? [place] [address] ? Ultrasound Report ? Signed ? Patient: Andrey,Mulu ?MR#: [id number] ?? [id number] ? : 1975 ?Acct:[id number] ? Age/Sex: 48 / F ?ADM Date: 01/08/24 ? Loc: HO.[facility]GCX ? Attending Dr: Kathy Mcneill MD ? Ordering Physician: Kathy Mcneill ?? Date of Service: 05/20/23 ?? Procedure(s): US venous duplex LE LT ?? Accession Number(s): [id number] ? cc: Kathy Mcneill ? EXAMINATION: ? [...] 1339 ? DD/ 1316 ? TD/TT: ? Fire Equipment Inspector: ? Procedure Note Ana, Image - 05/20/2023 [facility] [address] [place] [address] [place] [address] Ultrasound Report Signed Patient: Mulu Balderas#: [id number] : 1975Acct:[id number] Age/Sex: 48 / FADM Date: 05/20/23 [facility] Dr: Kathy Mcneill MD Ordering Physician: Kathy Mcneill Date of Service: 05/20/23 Procedure(s): US venous duplex LE LT Accession Number(s): [id number] cc: Kathy Mcneill EXAMINATION: US VENOUS ULTRASOUND [...] in OV> 05/20/23 1339 DD/ 1316 TD/TT: Fire Equipment Inspector: us Kathy Mcneill MD IMG US PROCEDURES Final Result documented in this encounter Visit Diagnoses Not on filedocumented in this encounter Additional Health Concerns Assessment Noted Time PHQ-9 Depression Total Score: 0 05/10/20 23 3:34 PM EST documented as of this encounter Care Teams Glaze Wiper Relationship Specialty Start Date End Date Kathy Mcneill MD 230 [place] [address] PCP - General Family Medicine 01/06/22 Shayan Douglas FNP [address] [place] [address] Nurse Practitioner Family Medicine 04/16/23 documented as of this encounter
--- OUTSIDE RECORDS SUMMARY | 2024-08-12 15:40 | XMS_ITS | Encounter Summary ---
Author Organization [employer] Address [address] [facility] 7[address] [place] [address] Care Team Providers Care Stock Car Driver Name Role Phone Kathy Mcneill MD Primary Care Provider [phone] Shayan Douglas Unavailable Unavailable Reason for Visit * Reason Comments Med Refill Encounter Details Date Type Department Care Team (Late st Contact Info) Description 02/22/2023 Refill [facility] [address] [place], [place] [phone] Kathy Mcneill MD [address] [place] [address] Migraine without aura and without status migrainosus, [...] 3:15 PM EDT Office Visit [facility] [address] [place] [address] Kathy Mcneill MD [address] [place] [address] documented as of this encounter Visit Diagnoses Diagnosis Migraine without aura and without status migrainosus, not intractable documented in this encounter Additional Health Concerns Assessment Noted Time PHQ-9 Depression Total Score: 4 02/05/20 23 3:48 PM EDT documented as of this encounter Care Teams Stock Car Driver Relationship Specialty Start Date End Date Kathy Mcneill MD [address] [place] [phone] PCP - General Family Medicine 01/06/22 Shayan Douglas FNP [address] [place] [phone] Nurse Practitioner Family Medicine 04/16/23 documented as of this encounter
--- OUTSIDE RECORDS SUMMARY | 2024-08-12 15:40 | XMS_ITS | Clinical Summary ---
Author Organization [employer] Address [address] [facility] 7[address] [place] [address] Care Team Providers Care Associate Attorney Name Role Phone Kathy Mcneill MD Primary Care Provider [phone] Shayan Douglas Unavailable Unavailable Allergies Active Allergy Reactions Criticality Noted Date Comments Gadolinium 05/22/2023 Gadolinium Containing Contrast Medi Allergy Iodine Rash Low 05/22/2023 Iodinated Contrast Media -IV contrast Medications aspirin 81 MG EC tablet Take 81 mg by mouth. 05/03/20 21 Active polyethylene glycol, PEG, 3350 (Miralax) 17 g packet Mix 1 packet in 8 ounces of water, juice, coffee or tea and drink once a day 07/13/19 22 Active topiramate (Topamax) 100 MG tablet Take 1 tablet by mouth. 05/03/20 22 Active metoprolol succinate XL (Toprol-XL) 100 MG 24 hr tablet TAKE 1 TABLET BY MOUTH TWICE DAILY AT NOON AND BEDTIME 12/06/19 23 Active hydrocortisone 2.5 % cream Mix 60g tube of Hydrocortisone 2.5% with 16oz jar of CeraVe cream. Apply by topical route 1-2 times per day after shower or bath from the neck down (not on face). 60 g 1 04/08/20 23 Active levothyroxine (Synthroid, Levoxyl) 125 MCG tabletIndications :Hypothyroidism, unspecified type TAKE 1 TABLET BY MOUTH EVERY MORNING 90 tablet 3 07/23/19 24 Active amLODIPine (Norvasc) 10 MG tabletIndications :Primary hypertension TAKE 1 TABLET BY MOUTH EVERYDAY AT NOON ((for high blood pressure)) 90 tablet 3 09/02/19 24 Active Bisacodyl EC 5 MG EC tablet TAKE 4 TABLETS BY MOUTH ONCE WITH A FULL GLASS OF WATER AT NOON DAY BEFORE PROCEDURE DIRECTED. 09/30/19 24 Active Fiber-Lax 625 MG tablet Take 1 tablet by mouth 3 times daily. 09/30/19 24 Active D3 Super Strength 50 MCG (1999 UT) capsule TAKE 1 CAPSULE BY MOUTH EVERYDAY AT NOON 90 capsule 3 11/25/19 24 Active atorvastatin (Lipitor) 40 MG tablet TAKE 1 TABLET BY MOUTH AT BEDTIME 90 tablet 3 04/07/20 24 Active Bismuth Subsalicylate 262 MG capsuleIndication s:Helicobacter pylori (H. pylori) infection Take 1 tablet by mouth 3 times daily. 42 capsule 05/19/19 25 Active buPROPion SR (Wellbutrin SR) 150 MG 12 hr tabletIndications :Anxious depression Take 1 tablet (150 mg) by mouth Once daily. Do not crush, chew, or split. 90 tablet 1 05/19/19 25 Active metroNIDAZOLE (Flagyl) 500 MG tabletIndications :Helicobacter pylori (H. pylori) infection TAKE 1 TABLET BY MOUTH THREE TIMES DAILY FOR FOURTEEN DAYS 05/04/20 24 Active pantoprazole (ProtoNix) 20 MG EC tabletIndications :Helicobacter pylori (H. pylori) infection TAKE 1 TABLET BY MOUTH TWICE DAILY FOR FOURTEEN DAYS 05/04/20 24 Active tetracycline 500 MG capsuleIndication s:Helicobacter pylori (H. pylori) infection TAKE 1 CAPSULE BY MOUTH EVERY SIX HOURS FOR FOURTEEN DAYS 05/04/20 24 Active bismuth subsalicylate (Pepto Bismol) 262 MG chewable tabletIndications :Helicobacter pylori (H. pylori) infection TAKE 2 TABLETS BY MOUTH FOUR TIMES DAILY FOR FOURTEEN DAYS 05/04/20 24 Active valsartan (Diovan) 160 MG tabletIndications :Secondary hypertension Take 1 tablet (160 mg) by mouth Once per day. Total dose of 240mg daily 30 tablet 05/22/19 25 026 Active valsartan (Diovan) 80 MG tabletIndications :Secondary hypertension Take 1 tablet (80 mg) by mouth Once per day. Total dose of 240mg daily 30 tablet 05/22/19 25 026 Active gabapentin (Neurontin) 100 MG capsuleIndication s:Migraine without aura and without status migrainosus, not intractable TAKE 1 CAPSULE BY MOUTH AT NOON, EVENING, AND BEDTIME 90 capsule 3 05/26/19 25 Active mirtazapine (Remeron) 30 MG tabletIndications :Other specified anxiety disorders TAKE 1 TABLET BY MOUTH AT BEDTIME 90 tablet 3 06/16/19 25 Active ibuprofen 800 MG tabletIndications :Right sided sciatica TAKE 1 TABLET BY MOUTH THREE TIMES DAILY NEEDED FOR PAIN FOR 10 DAYS 30 tablet 07/06/19 25 Active Lidoderm 5 % patchIndications: Right sided sciatica APPLY 1 PATCH TOPICALLY TO SKIN, LEAVE ON FOR 12 HOURS AND OFF FOR 12 HOURS DIRECTED 30 patch 1 07/06/19 25 Active Blood Pressure kit 1 each Once per day. Take BP Daily 1 kit 07/06/19 25 Active varenicline (Chantix) 0.5 MG tablet Take 0.5 mg by mouth 2 times daily. Take with full glass of water. Active Active Problems Problem Noted Date Diagnosed Date [...] results and refer for any abnormal to internal audit consultant for biopsy Smoking 04/11/2023 Assessment & Plan [...] Intraductal carcinoma in situ of breast 03/31/20 22 Assessment & Plan (07/31/2022 11:20 AM EDT): [place] saw [place] Osuna at [facility] 04/2022 Reassuring US in 10/2021, with simple cysts in L breast Continue q6 month followup Assessment & Plan (05/02/2022 12:11 PM EST): Last saw Dr Osuna at [facility] 04/2022 Reassuring US in 10/2021, with simple cysts Migraines 03/31/2022 Myocardial infarction 03/31/2022 Assessment & Plan (07/31/2022 11:19 AM EDT): NSTEMI, continue Bblocker, statin, ASA Vitamin D deficiency 03/31/2022 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 Assessment & Plan (05/22/2024 8:33 AM EST): Continue conservative management Assessment & Plan (07/31/2022 11:18 AM EDT): With ICA stent and resolved (according to CTA of head/neck from [facility]) aneurysm Will have pt return to neurovascular [...] Encounters Date Type Department Care Team Description 07/24/2024 [facility] Risk Score [facility] ([facility]) Department [address] [phone] Provider, Population Health Generic 07/22/2024 Orders Only GENERIC EXTERNAL DATA DEPARTMENT Provider, Generic External Data 07/22/2024 Refill [facility] [address] [place] [address] Kathy Mcneill MD 07/09/2024 Orders Only [facility] External Provider, [facility] 07/06/2024 Telephone [facility] [address] [place] [address] Kathy Mcneill MD 07/06/2024 Refill [facility] [address] [place] [address] Kathy Mcneill MD Right sided sciatica 07/06/2024 Telephone [facility] [address] [place] [address] Kathy Mcneill MD 06/17/2024 Refill [facility] [address] [place] [address] Kathy Mcneill MD Smoking 06/15/2024 Refill [facility] [address] [place] [address] Kathy Mcneill MD Other specified anxiety disorders 06/08/2024 Refill [facility] [address] [place] [address] Kathy Mcneill MD Smoking 05/26/2024 Refill [facility] [address] [place], [place] [phone] Kathy Mcneill MD Migraine without aura and without status migrainosus, not intractable 05/19/2024 10:15 AM EST Office Visit [facility] [address] [place] [address] Kathy Mcneill MD Secondary hypertension (Primary Dx); Anxious depression; Localized swelling of left lower extremity; Cerebral aneurysm without rupture; Obstructive sleep apnea; Arterial fibromuscular dysplasia (CMS/HCC); Ductal carcinoma in situ (DCIS) of right breast; Helicobacter pylori (H. pylori) infection; Muscle spasm 05/19/2024 Travel 05/18/2024 Travel 05/15/[address] [facility] [address] [place] [address] Kathy Mcneill MD Migraine without aura and without status migrainosus, not intractable from Last 3 Months Immunizations Name Administration [...] Description 08/26/2024 3:15 PM EDT Office Visit [facility] [address] [place] [address] Kathy Mcneill MD [address] [place], [place] [phone] Health Maintenance Due Date Last Done Comments CT Colonography 1973 Colonoscopy 1973 FIT DNA/Cologuard 1973 FIT 1973 FOBT 1973 Sigmoidoscopy 1973 Alcohol/Substance Use Screening 1985 Family Planning (PISQ) 1988 Hepatitis B Vaccines (1 of 3 - 19+ 3-dose series) 1992 Pneumococcal Vaccine: 50+ Years (1 of 2 - PCV) 1992 COVID-19 Vaccine (4 - season) 2024 03/02/2021, 07/16/2020, 06/25/2020 Depression Screening [...] 75+ series) 2048 HIV Screening Completed 04/08/2023, 0 12/2020, 07/28/2020, Additional history exists Hepatitis C [...] Comments HELICOBACTER PYLORI, UREA BREATH TEST Routine 07/22/2024 9:10 AM EDT VASC US LOWER EXTREMITY VENOUS DUPLEX BILATERAL Routine 07/09/2024 1:24 PM EST HPV MRNA E6/E7 REFLEX TO [...] Results * Helicobacter pylori, Urea Breath Test (07/22/2024 9:10 AM EDT) H. pylori Breath Test Negative Negative [facility] Comment:Antimicrobials, prot on pump inhibitors and bismuthpreparations are known to suppress H. pylori. Ingestingthese medications within two weeks prior to performing thebreath test may produce negative test results. A positiveresult is still clinically valid. 07/22/2024 9:10 AM EDT 07/23/2024 3:39 PM EDT us Generic External Data Provider LAB BLOOD ORDERAB LES Final Result [facility] [address] [place] [address] [phone] * VASC Lower Extremity Venous Duplex Bilateral (07/09/2024 1:24 PM EST) 07/09/2024 1:24 PM EST Narrative [facility] - 07/09/2024 3:22 PM EST ? [facility] ?[address] ?[place] [address] ? Ultrasound Report ? Signed ? Patient: Andrey,Mulu ?MR#: [id number] ?? [id number] ? : 1975 ?Acct:[id number] ? Age/Sex: 49 / F ?ADM Date: 07/09/24 ? Loc: HO.US ? Attending Dr: Shirley Alexis PA-C ? Ordering Physician: Shirley Alexis PA-C ?? Date of Service: 07/09/24 ?? Procedure(s): US venous duplex LE BI ?? Accession Number(s): [id number] ? cc: Kathy Mcneill; Shirley Alexis PA-C [...] Eller MD ??07/09/2024 03:19 PM ?? EST ? Dictated By: ?Kit Majano MD ? Signed By: ?<Electronically signed by Kit Limon MD in OV> ? 07/09/24 1519 ? DD/ 1324 ? TD/TT: 07/09/24 1350 ? Channel Business Manager: ? Procedure Note Josefina Perez - 07/09/[address] [address] Ultrasound Report Signed Patient: Mulu Balderas#: [id number] : 1975Acct:[id number] Age/Sex: 49 / FADM Date: 07/09/24 Loc: . Attending Dr: Shirley Alexis PA-C Ordering Physician: Shirley Alexis PA-C Date of Service: 07/09/24 Procedure(s): US venous duplex LE BI Accession Number(s): [id number] cc: Kathy Mcneill; Shirley Alexis PA-C EXAMINATION: [...] by: Kit Eller MD 07/09/2024 03:19 PM [facility] Dictated By: Kit Majano MD Signed By: <Electronically signed by Kit Limon MDin OV> 07/09/24 1439 DD/ 1324 TD/TT: 07/09/24 1350 Channel Business Manager: [facility] External Provider CV VASC ULAR PROCEDURES Final Result Performing Organization Address [facility] Co de Phone Number [facility] [address] [place] [address] * HPV mRNA E6/E7 w/Reflex to HPV [...] alternative testing options.For additional information, please refer tohttp://education.[employer]/faq/EOQ013v5(This link if provided for information/educational purposes only.)THIS TEST WAS PERFORMED AT:[facility] [place] [phone] CRUZ MD HPV mRNA E6/E7 [facility] HPV 16 RNA [facility] HPV 18/45 RNA [facility] 05/10/2023 4:56 PM EST 05/14/2023 8:00 AM EST Kathy Mcneill MD LAB CYTOLOGY ORDERABLES Final Result Performing Organization Address City/[facility]/ZIP Co de Phone Number [facility] [address] [place] [address] [phone] * Pap Smear (05/10/2023 4:56 PM EST) 05/10/2023 4:56 PM EST 05/14/2023 8:00 AM EST Narrative [facility] - 05/17/2023 1:44 PM EST ----- ------- Name: Mulu Balderas ?Age/Sex: 48/F ? : 1975 Unit#: [id number] ?? Attend Dr: Kathy Mcneill ?Re05/10/23 ?Status: DEP REF ? Location: HO.HHCLNP ? Disch: ? ----- ------- SPEC : [id number] ? RECD: 05/14/23 ? STATUS: ??SOUT ? REQ NUM: [id number] ? NORTH: 05/10/231655 ? SUBM DR: Kathy Mcneill ? ENTERED: [...] 66, 68) ?? HPV testing performed by [facility], [place], [place]. ??See reference laboratory ?? portion of the EMR for entire report. ?Clinical Information LMP: Menopause Previous PAP test: Unknown date/findings ? Material Received ?? ThinPrep-Cervical ----- ------- Signed (signature on file) INNA Cobb (ASCP) 05/17/23 4347 ? ----- ------- ? END OF REPORT ? Kathy Mcneill MD LAB CYTOLOGY ORDERABLES Final Result Performing Organization Address [facility] de Phone Number [facility] [address] [place] [phone] * Hepatitis C Ab (04/08/2023 2:44 PM EST) Pathologist [facility] Hepatitis C Antibody Nonreactive Nonreactive [facility] Comment:Antibodies to HCV no t detected; does not exclude early acuteHCV infection. Blood Venous blood specimen / Unknown 04/08/2023 2:44 PM EST 04/08/2023 4:15 PM EST Kathy Mcneill MD LAB BLOOD ORDERABLES Final Res ult Performing Organization Address [facility] de Phone Number [facility] [address] [place] [phone] * HIV-1/2 Antigen and Antibodies, Fourth Generation, with Reflexes (04/08/2023 2:44 PM EST) [facility] HIV AB/AG Nonreactive Nonreactive [facility] Comment:HIV-1 p24 Ag and/or HIV-1/HIV-2 Ab not detected.A test result that is nonreactive does not exclude thepossibility of exposure to or infection with HIV-1 and/orHIV-2. Nonreactive results in this assay for individualswith prior exposure to HIV-1 and/or HIV-2 may be due toantigen and antibody levels that are below the limit ofdetection of this assay.The [employer] HIV Ag/Ab Combo assay result andsupplemental assay results should be interpreted inconjunction with the patient's clinical presentation,history and other laboratory results. If the results areinconsistent with clinical evidence, additional testing issuggested to confirm the result. Blood Venous blood specimen / Unknown 04/08/2023 2:44 PM EST 04/08/2023 4:15 PM EST us Kathy Mcneill MD LAB BLOOD ORDERABLES Final Res ult [facility] [address] [place] [phone] [phone] * (ABNORMAL) LIPID PANEL, STANDARD (01/18/2021 [...] the ?? estimation of LDL-C. ?? Johnnie SS et al. LAURENT. 2013;310(19): 4041-8203 ?? (http://education.[employer]/faq/BRJ744) Non-HDL Cholesterol 71 <130 mg/dL (calc) [facility] Comment: For patients with diabetes plus 1 major ASCVD risk ?? factor, treating to a non-HDL-C goal of <100 mg/dL ?? (LDL-C of <70 mg/dL) is considered a therapeutic ?? option. Triglycerides 110 <150 mg/dL [facility] 01/18/2021 2:59 PM EDT us Dayan [facility]OP LAB BLOOD ORDERABLES Final Res ult Performing Organization Address City/[facility]/ZIP Co de Phone Number [facility] [address] [place] [address], from Last 3 Months or Most Recently Relevant to Health Maintenance Insurance [facility] C3 Care Teams Associate Attorney Relationship Specialty Start Date End Date Kathy Mcneill MD [address] [place] [address] PCP - General Family Medicine 01/06/22 Shayan Douglas FNP [address] [place], [place] Nurse Practitioner Family Medicine 04/16/23
== END 2024-08-12 13:23 | disposition home or self-care (01) ==
LOC: HO.HCS 13:03
PROVIDERS: PCP General Practice; Visit Provider Internal Medicine Cardiovascular Disease
DX: I10 Essential (primary) hypertension (principal); I77.3 Arterial fibromuscular dysplasia; I25.42 Coronary artery dissection; R00.2 Palpitations
CPT/HCPCS: 93010; 99214

== ENCOUNTER → 2024-08-12 13:02 | Outpatient (BNVA) | payer MEDICAID, SELFPAY | PROVIDERS: PCP General Practice; Visit Provider Internal Medicine Cardiovascular Disease | DX: I25.10 Atherosclerotic heart disease of native coronary artery without angina pectoris (principal); I77.3 Arterial fibromuscular dysplasia; I10 Essential (primary) hypertension; R00.2 Palpitations; R94.31 Abnormal electrocardiogram [ECG] [EKG] | CPT/HCPCS: 93005; 99212 ==

== ENCOUNTER 2024-08-25 13:18 | Outpatient (AMB) | payer MEDICAID, SELFPAY ==
--- NOTE | 2024-08-25 13:19 | A.OFFVIS_ITS ---
Vital Signs 08/25/24 13:25 Height 5 ft 2 in Weight 128 lb 6 oz BMI 23.5 BP 143/63 H Blood Pressure Location Lt brachial Position Sitting Pulse 88 Intake Visit Reasons: 6 month breast exam Intake Note: Patient is seen in office for 6 month follow up visit, breast exam. Pt c/o: for the past 2 weeks increase pain on both breast, feels swollen, redness, pain radiates to the arm, feels lumps on the bottom of both breast mm sched:01/25/25 Inside Sales Administrator Required: No Underwriter Solicitation Director: Underwriter Solicitation Director Present Accompanied by: Self / Same As Patient Allergies Gadolinium-Containing Contrast Medi Allergy (Severe, Verified 08/25/24 13:26) Rash Iodinated Contrast Media [IV Contrast Dye] Allergy (Severe, Verified 08/25/24 13:26) Rash HPI Comments Details: 49-year-old female patient, former patient of Dr. Gamez with a prior history of ductal carcinoma in-situ returning to review her recent genetic testing results. She underwent right breast lumpectomy on 09/23/2019 followed by wider excision on 10/08/2019. 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 Radiation therapy at [facility] was completed on 12/09/2019. She developed lymphedema of the right breast and subsequently underwent physical therapy for approximately 3 weeks. Genetic testing revealed no deleterious mutations although she did have a variant of unknown significance. MRI of 10/24/2021 revealed indeterminate linear enhancement of the left breast, 10:00 o'clock and MR guided biopsy was recommended. 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 On 10/01/2022 she underwent an excision of 2 left breast cysts. Pathology revealed no atypia or malignancy. Mammogram and ultrasound of the right breast performed on 08/04/2023 revealed no suspicious findings at the site of the patient's symptoms (BI-RADS 2). She underwent lumpectomy of a palpable mass in the left 02/12/2024. This revealed benign findings including fibrocystic change and pseudoangiomatous stromal hyperplasia. Genetic testing performed on 03/02/2024 revealed no clinically significant mutations identified. Two variance of uncertain significance in the SDHA and SDHB genes were identified. This would be significant if she had a family history of paraganglioma or pheochromocytoma, renal/kidney cancer, or gastrointestinal stromal tumor (GIST). Patients with family history of these disorders would be eligible for [facility] family study program. To the best of her knowledge she has no family history of any these disorders. She returns today for routine breast examination. She reports bilateral severe breast pain for the past several weeks. She feels the pain is causing her blood pressure in to increase. She also has some pain in the left arm undersurface. She was scheduled for a mammogram in January 2025. [facility] Medical History Fibromuscular dysplasia History of COVID-19 Sleep apnea History of radiation therapy Stroke Aneurysm NSTEMI (non-ST elevated myocardial infarction) Gout Hypertension Hypothyroidism Ductal carcinoma in situ (DCIS) of right breast Surgical History History of lumpectomy of left breast (02/12/24) History of removal of cyst History of breast lump/mass excision (07/09/22) Status post cardiac catheterization History of right breast biopsy (09/08/19) History of endometrial ablation (2010) History of bilateral tubal ligation (2003) History of lumpectomy of right breast (10/07/19) Family History Daughter Thyroid cancer Paternal Grandmother Breast cancer Thyroid cancer Diabetes Sister Diabetes HTN (hypertension) Sister HTN (hypertension) Sister HTN (hypertension) Sister HTN (hypertension) Sister HTN (hypertension) Father Brain tumor Mother Heart attack Social History Household Members: Other Household Members Other:: daughter Housing: Apartment Are you a primary career resource technician to a significant other at home: No Do you presently have visiting nurse or other home services: No 75 years or older and lives alone: No Alcohol intake: former Year quit: 2020 Patient Tobacco Use Status: Former Tobacco user Tobacco use type: Cigarette Years Smoked: 10 +/- service: No Current occupational status: employed Current occupation: rt handed Review of Systems Const All systems reviewed & are unremarkable except as noted in HPI and below Physical Exam Vital Signs: Last Vital Signs Pulse 88 08/25/24 13:25 BP 143/63 H 08/25/24 13:25 BMI result Body Mass Index 23.5 Const General: no acute distress Nutritional Appearance: well nourished and thin Orientation/consciousness: patient oriented x3 Chest Other: Well-healed bilateral breast incisions with no evidence of infection or seroma. Breasts are bilaterally tender especially in the lower inner quadrant. Left breast: No skin change, no nipple retraction, no nipple discharge, no palpable mass, no enlarged lymph nodes. Right breast: No skin change, no nipple retraction, no nipple discharge, no palpable mass, no enlarged lymph nodes Resp Effort & Inspection: normal respiratory effort GI Inspection: Yes normal to inspection Skin Other: Warm, dry, no rash Neuro Other: Mobility Assessment: 1. 3 meter assessment time (seconds): 4 2. Gait observations: Normal balance and gait General: patient oriented x3 Extrem General: Yes no clubbing, cyanosis or edema Assessment & Plan Assessment & Plan (1) Ductal carcinoma in situ (DCIS) of right breast: Code(s): D05.11 - Intraductal carcinoma in situ of right breast Category: Medical (2) Breast pain, left: Code(s): N64.4 - Mastodynia Category: Medical (3) Breast pain, right: Code(s): N64.4 - Mastodynia Category: Medical Plan 49-year-old female patient with a prior history of DCIS now complaining of bilateral breast pain which is severe in nature. This has been present for several weeks without improvement. Examination today revealed no suspicious findings with the bilateral breasts were found to be diffusely tender. No new skin changes or nipple discharge could be identified. No enlarged lymph nodes are appreciated. I recommended a diagnostic bilateral mammogram and ultrasound to further evaluate the patient's severe mastodynia. Her last mammogram was July 2023 therefore she was due for mammogram at this time. She expressed understanding and agrees with the plan. Orders: Orders US breast RT complete Today D05.11 - Intraductal carcinoma in situ of right breast, N63.10 - Unspecified lump in the right breast, unspecified quadrant, N64.4 - Mastodynia MM diagnostic mammo BI Today D05.11 - Intraductal carcinoma in situ of right breast, N63.10 - Unspecified lump in the right breast, unspecified quadrant, N64.4 - Mastodynia US breast LT complete Today D05.11 - Intraductal carcinoma in situ of right breast, N63.10 - Unspecified lump in the right breast, unspecified quadrant, N64.4 - Mastodynia Coding Level of Care Code Est Pt Level 3 (63506) Diagnoses Ductal carcinoma in situ (DCIS) of right breast D05.11 Breast pain, left N64.4 Breast pain, right N64.4
[2024-08-25 13:25] VITALS: BP 143/63; PULSE 88; BMI 23.5
--- OUTSIDE RECORDS SUMMARY | 2024-08-25 16:14 | XMS_ITS | Encounter Summary ---
Author Organization [employer] Address 75 [facility] 7t [place] [address] Care Team Providers Care Flight Communications Operator Name Role Phone Kathy Mcneill MD Primary Care Provider [phone] Shayan Douglas Unavailable Unavailable Reason for Visit * Reason Comments Med Refill Encounter Details Date Type Department Care Team (Late st Contact Info) Description 02/22/2023 Refill [facility] MED & PEDS [address] [place], [place] [phone] Kathy Mcneill MD 230 [place] [address] Migraine without aura and without status migrainosus, [...] Description 08/26/2024 3:15 PM EDT Office Visit [facility] MEDICINE 230 [place] [address] Kathy Mcneill MD [address] [place] [address] documented as of this encounter Visit Diagnoses Diagnosis Migraine without aura and without status migrainosus, not intractable documented in this encounter Additional Health Concerns Assessment Noted Time PHQ-9 Depression Total Score: 4 02/05/20 23 3:48 PM EDT documented as of this encounter Care Teams Flight Communications Operator Relationship Specialty Start Date End Date Kathy Mcneill MD [address] [place] [address] PCP - General Family Medicine 01/06/22 Shayan Douglas FNP [address] [place] [address] Nurse Practitioner Family Medicine 04/16/23 documented as of this encounter
--- OUTSIDE RECORDS SUMMARY | 2024-08-25 16:14 | XMS_ITS | Encounter Summary ---
Author Organization [employer] Address 75 [facility] 7t [place] [address] Care Team Providers Care Community Health Counselor Name Role Phone Kathy Mcneill MD Primary Care Provider [phone] Shayan Douglas Unavailable Unavailable Reason for Visit * Reason Comments Med Refill Encounter Details Date Type Department Care Team ([facility] st Contact Info) Description 05/15/2024 Refill [facility] CHC MED & PEDS [address] [place], [place] [phone] Kathy Mcneill MD 230 [place] [address] Migraine without aura and without status migrainosus, [...] Description 08/26/2024 3:15 PM EDT Office Visit [facility] MEDICINE 230 [place] [address] Kathy Mcneill MD [address] [place] [address] documented as of this encounter Visit Diagnoses Diagnosis Migraine without aura and without status migrainosus, not intractable documented in this encounter Additional Health Concerns Assessment Noted Time PHQ-9 Depression Total Score: 0 05/10/20 23 3:34 PM EST documented as of this encounter Care Teams Community Health Counselor Relationship Specialty Start Date End Date Kathy Mcneill MD [address] [place] [address] PCP - General Family Medicine 01/06/22 Shayan Douglas FNP [address] [place] [address] Nurse Practitioner Family Medicine 04/16/23 documented as of this encounter
--- OUTSIDE RECORDS SUMMARY | 2024-08-25 16:14 | XMS_ITS | Encounter Summary ---
Author Organization [employer] [facility] Address [address] [place] [address] 7t [place] [address] Care Team Providers Care Letter Of Credit Clerk Name Role Phone Kathy Mcneill MD Primary Care Provider [phone] Shayan Douglas Unavailable Unavailable Reason for Visit * Reason Onset Date Comments Med Refill 07/22/2024 Encounter Details Date Type Department Care Team ([facility] st Contact Info) Description 07/22/2024 Refill [facility] MEDICINE 230 [place] [address] Kathy Mcneill MD 230 [place] [address] Social History Tobacco Use Types Packs/Day Years [...] Description 08/26/2024 3:15 PM EDT Office Visit [facility] MEDICINE [address] [place] [address] Kathy Mcneill MD [address] [place] [address] documented as of this encounter Visit Diagnoses Not on filedocumented in this encounter Additional Health Concerns Assessment Noted Time PHQ-9 Depression Total Score: 0 05/10/20 23 3:34 PM EST documented as of this encounter Care Teams Letter Of Credit Clerk Relationship Specialty Start Date End Date Kathy Mcneill MD [address] [place] [address] PCP - General Family Medicine 01/06/22 Shayan Douglas FNP [address] [place] [address] Nurse Practitioner Family Medicine 04/16/23 documented as of this encounter
--- OUTSIDE RECORDS SUMMARY | 2024-08-25 16:14 | XMS_ITS | Encounter Summary ---
Author Organization [facility] Address 75 [facility] 7t [place] [address] Care Team Providers Care Restaurant Associate Name Role Phone Kathy Mcneill MD Primary Care Provider [phone] Shayan Douglas Unavailable Unavailable Reason for Visit * Reason Comments Med Refill Encounter Details Date Type Department Care Team ([facility] st Contact Info) Description 06/08/2024 Refill [facility] MEDICINE 230 [place], [place] [phone] Kathy Mcneill MD 230 [place] [address] Smoking Social History Tobacco Use Types Packs/Day [...] 08/26/2024 3:15 PM EDT Office Visit [facility] MEDICINE 230 [place] [address] Kathy Mcneill MD 230 [place] [address] documented as of this encounter Visit Diagnoses Diagnosis Smoking Tobacco use disorder documented in this encounter Additional Health Concerns Assessment Noted Time PHQ-9 Depression Total Score: 0 05/10/20 23 3:34 PM EST documented as of this encounter Care Teams Restaurant Associate Relationship Specialty Start Date End Date Kathy Mcneill MD [address] [place] [address] PCP - General Family Medicine 01/06/22 Shayan Douglas FNP [address] [place] [address] Nurse Practitioner Family Medicine 04/16/23 documented as of this encounter
--- OUTSIDE RECORDS SUMMARY | 2024-08-25 16:14 | XMS_ITS | Encounter Summary ---
Author Organization [employer] [facility] Address 75 [facility] 7t [place] [address] Care Team Providers Care Air Defense Artillery Officer Name Role Phone Kathy Mcneill MD Primary Care Provider [phone] Shayan Douglas Unavailable Unavailable Reason for Visit * Reason Comments Med Refill Encounter Details Date Type Department Care Team ([facility] st Contact Info) Description 06/17/2024 Refill [facility] MEDICINE 230 [place], [place] [phone] Kathy Mcneill MD 230 [place] [address] Smoking Social History Tobacco Use Types Packs/Day [...] Description 08/26/2024 3:15 PM EDT Office Visit [facility] MEDICINE 230 [place] [address] Kathy Mcneill MD 230 [place] [address] documented as of this encounter Visit Diagnoses Diagnosis Smoking Tobacco use disorder documented in this encounter Additional Health Concerns Assessment Noted Time PHQ-9 Depression Total Score: 0 05/10/20 23 3:34 PM EST documented as of this encounter Care Teams Air Defense Artillery Officer Relationship Specialty Start Date End Date Kathy Mcneill MD [address] [place] [address] PCP - General Family Medicine 01/06/22 Shayan Douglas FNP [address] [place] [address] Nurse Practitioner Family Medicine 04/16/23 documented as of this encounter
--- OUTSIDE RECORDS SUMMARY | 2024-08-25 16:14 | XMS_ITS | Clinical Summary ---
Author Organization [employer] Address 75 [facility] 7t [place] [address] Care Team Providers Care Environmental Construction Engineer Name Role Phone Kathy Mcneill MD Primary Care Provider [phone] Shayan Douglas Unavailable Unavailable Allergies Active Allergy [...] results and refer for any abnormal to tavern operator for biopsy Smoking 04/11/2023 Assessment & [...] AM EDT): Last saw Dr Osuna at [facility] 04/2022 Reassuring US in 10/2021, with simple cysts in L breast Continue q6 month followup Assessment & Plan (05/02/2022 12:11 PM EST): Last saw Dr Osuna at [facility] 04/2022 Reassuring US in 10/2021, with simple cysts Migraines 03/31/2022 Myocardial infarction 03/31/2022 Assessment & Plan (07/31/2022 11:19 AM EDT): NSTEMI, continue Bblocker, statin, ASA Vitamin D deficiency 03/31/2022 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 Assessment & Plan (05/22/2024 8:33 AM EST): Continue conservative management Assessment & Plan (07/31/2022 11:18 AM EDT): 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 Will have pt return to neurovascular [...] Date Type Department Care Team Description 07/24/2024 Population [facility] Risk Score [facility] (C3) Department [address] [phone] Provider, Population Health Generic 07/22/2024 Orders Only GENERIC EXTERNAL DATA DEPARTMENT Provider, Generic External Data 07/22/2024 Refill [facility] MEDICINE 230 [place] [address] Kathy Mcneill MD 07/09/2024 Orders Only [facility] External Provider, [facility] 07/06/2024 Telephone [facility] [address] [place] [address] Kathy Mcneill MD 07/06/2024 Refill [facility] [address] [place] [address] Kathy Mcneill MD Right sided sciatica 07/06/2024 Telephone [facility] [address] [place] [address] Kathy Mcneill MD 06/17/2024 Refill [facility] [address] [place] [address] Kathy Mcneill MD Smoking 06/15/2024 Refill [facility] [address] [place] [address] Kathy Mcneill MD Other specified anxiety disorders 06/08/2024 Refill [facility] [address] [place] [address] Kathy Mcneill MD Smoking from Last 3 Months Immunizations Name Administration [...] PM EDT Office Visit [facility] [address] [place] [address] Kathy Mcneill MD [address] [place] [address] Health Maintenance Due Date Last Done Comments [...] 75+ series) 2048 HIV Screening Completed 04/08/2023, 12/2020, 07/28/2020, Additional history exists Hepatitis C [...] EDT) H. pylori Breath Test Negative Negative [facility] Comment:Antimicrobials, prot on pump inhibitors and bismuthpreparations are known to suppress H. pylori. Ingestingthese medications within two weeks prior to performing thebreath test may produce negative test results. A positiveresult is still clinically valid. 07/22/2024 9:10 AM EDT 07/23/2024 3:39 PM EDT us Generic External Data Provider LAB BLOOD ORDERAB LES Final Result [facility] [address] [place] [phone] * VASC US Lower Extremity Venous Duplex Bilateral (07/09/2024 1:24 PM EST) 07/09/2024 1:24 PM EST Narrative [facility] IMAGING - 07/09/2024 3:22 PM EST ? [facility] ?[address] [place] [address]. ?[place] [address] ? Ultrasound Report ? Signed ? Patient: Andrey,Mulu ?MR#: [id number] ?? [id number] ? : 1975 ?Acct:[id number] ? Age/Sex: 49 / F ?ADM Date: 02/27/25 ? Loc: HO.US ? Attending Dr: Shirley Alexis PA-C ? Ordering Physician: Shirley Alexis PA-C ?? Date of Service: 07/09/24 ?? Procedure(s): US venous duplex LE BI ?? Accession Number(s): [id number] ? cc: Kathy Mcneill; Shirley Alexis PA-C [...] ?? Size: NA ?? Reflux: NA ? US/ venous duplex LE BI ?? IMPRESSION: ?? [...] DD/ 1324 ? TD/TT: 07/09/24 1350 ? Director Sanitation Bureau: ? Procedure Note [place], Image - 07/09/2024 [place] [address] Ultrasound Report Signed Patient: Meche Balderas#: [id number] : 1975Acct:[id number] Age/Sex: 49 / FADM Date: 07/09/24 Loc: HO. Attending Dr: Shirley Alexis PA-C Ordering Physician: Shirley Alexis PA-C Date of Service: 07/09/24 Procedure(s): US venous duplex LE Accession Number(s): [id number] cc: Kathy Mcneill; Shirley Alexis PA-C EXAMINATION: [...] 07/09/24 1519 DD/ 1324 TD/TT: 07/09/24 1350 Director Sanitation Bureau: us [facility] External Provider CV VASC ULAR PROCEDURES Final Result [facility] [address] [place] [address] [phone] * HPV mRNA E6/E7 w/Reflex to HPV Genotypes 16, 18/45 (05/10/2023 4:56 PM EST) HPV nRNA E6/E7 Not Detected Not Detected [facility] Comment:Methodology: Transcr iption-Mediated AmplificationThis assay detects E6/E7 viral messenger RNA (mRNA) from 14high-risk HPV types (16,18,31,33,35,39,45,51,52,56,58,59,66,68).Cervical sources are required for HPV testing.If a vaginal source from a patient who has had atotal hysterectomy with removal of cervix wassubmitted, please contact the testing laboratoryfor alternative testing options.For additional information, please refer tohttp://education.[employer]/faq/GOX250h7(This link if provided for information/educational purposes only.)THIS TEST WAS PERFORMED AT:[facility] [place] [phone] CRUZ MD HPV mRNA E6/E7 TNP [facility] HPV 16 RNA TNP [facility] HPV 18/45 RNA TNP [facility] 05/10/2023 4:56 PM EST 05/14/2023 8:00 AM EST Kathy Mcneill MD LAB CYTOLOGY ORDERABLES Final Result Performing Organization Address City/State/[facility] Co de Phone Number [facility] [address] [place] [address] [phone] * Pap Smear (05/10/2023 4:56 PM EST) 05/10/2023 4:56 PM EST 05/14/2023 8:00 AM EST Narrative [facility] - 05/17/2023 1:44 PM EST ----- ------- Name: Mulu Balderas ?Age/Sex: 48/F ? : 1975 Unit#: [id number] ?? Attend Dr: Kathy Mcneill ?Re05/10/23 ?Status: DEP REF ? Location: HO.HHCLNP ? Disch: ? ----- ------- SPEC : [id number] ? RECD: 05/14/23 ? STATUS: ??SOUT ? REQ NUM: [id number] ? NORTH: 05/10/23-6855 ? SUBM DR: Kathy Mcneill ? ENTERED: [...] 66, 68) ?? HPV testing performed by [facility], [place], [place]. ??See reference laboratory ?? portion of the EMR for entire report. ?Clinical Information LMP: Menopause Previous PAP test: Unknown date/findings ? Material Received ?? ThinPrep-Cervical ----- ------- Signed (signature on file) INNA Cobb ([facility]) 05/17/23 1344 ? ----- ------- ? END OF REPORT ? Kathy Mcneill MD LAB CYTOLOGY ORDERABLES Final Result [facility] [address] [place] [phone] * Hepatitis C Ab (04/08/2023 2:44 PM EST) Hepatitis C Antibody Nonreactive Nonreactive [facility] Comment:Antibodies to HCV no t detected; does not exclude early acuteHCV infection. Blood Venous blood specimen / Unknown 04/08/2023 2:44 PM EST 04/08/2023 4:15 PM EST Kathy Mcneill MD LAB BLOOD ORDERABLES Final Res ult Performing Organization Address [facility] Co de Phone Number [facility] [address] [place] [phone] * HIV-1/2 Antigen and Antibodies, Fourth Generation, with Reflexes (04/08/2023 2:44 PM EST) HIV AB/AG Nonreactive Nonreactive [facility] Comment:HIV-1 p24 Ag and/or HIV-1/HIV-2 Ab not detected.A test result that is nonreactive does not exclude thepossibility of exposure to or infection with HIV-1 and/orHIV-2. Nonreactive results in this assay for individualswith prior exposure to HIV-1 and/or HIV-2 may be due toantigen and antibody levels that are below the limit ofdetection of this assay.The [employer] HIV Ag/Ab Combo assay result andsupplemental assay results should be interpreted inconjunction with the patient's clinical presentation,history and other laboratory results. If the results areinconsistent with clinical evidence, additional testing issuggested to confirm the result. Blood Venous blood specimen / Unknown 04/08/2023 2:44 PM EST 04/08/2023 4:15 PM EST Kathy Mcneill MD LAB BLOOD ORDERABLES Final Res ult Performing Organization Address [facility] Co de Phone Number [facility] [address] [place] [phone] * (ABNORMAL) LIPID PANEL, STANDARD (01/18/2021 [...] the ?? estimation of LDL-C. ?? Johnnie DELAGDO et al. LAURENT. 2013;310(19): 8177-3437 ?? (http://[employer]/faq/UMD603) Non-HDL Cholesterol 71 <130 mg/dL (calc) [facility] Comment: For patients with diabetes plus 1 major ASCVD risk ?? factor, treating to a non-HDL-C goal of <100 mg/dL ?? (LDL-C of <70 mg/dL) is considered a therapeutic ?? option. Triglycerides 110 <150 mg/dL [facility] 01/18/2021 2:59 PM EDT us Dayan Diez WINDOW GLASS INSTALLER LAB BLOOD ORDERABLES Final Res ult [facility] [address] from Last 3 Months or Most Recently Relevant to Health Maintenance Insurance [facility] C3 Care Teams Environmental Construction Engineer Relationship Specialty Start Date End Date Kathy Mcneill MD [address] [place] [address] PCP - General Family Medicine 01/06/22 Shayan Douglas FNP [address] [place] [address] Nurse Practitioner Family Medicine 04/16/23
--- OUTSIDE RECORDS SUMMARY | 2024-08-25 16:14 | XMS_ITS | Encounter Summary ---
Author Organization [employer] Address 75 [facility] 7t [place] [address] Care Team Providers Care Aircraft Structural Fitter Name Role Phone Kathy Mcneill MD Primary Care Provider [phone] Shayan Douglas Unavailable Unavailable Encounter Details Date Type Department Care Team ([facility] st Contact Info) Description 05/15/2023 Orders Only [facility] MEDICINE [address] [place], [place] [phone] Kathy Mcneill MD [address] [place], [place] [phone] Social History Tobacco Use Types Packs/Day Years [...] Description 08/26/2024 3:15 PM EDT Office Visit [facility] MEDICINE [address] [place], [place] [phone] Kathy Mcneill MD [address] [place] [address] documented as of this encounter Procedures Procedure Name Priority Date/Time Associated Diagnosis Comments US VENOUS DUPLEX LE LT Routine 05/20/2023 1:16 PM EST documented in this encounter Results * US VENOUS DUPLEX LE LT (05/20/2023 1:16 PM EST) Anatomical Region Laterality Modality Abdomen Ultrasound 05/20/2023 1:16 PM EST Narrative 05/20/2023 1:43 PM EST ? [facility] ?[address] ? [place] [address] ? Ultrasound Report ? Signed ? Patient: Andrey,Mulu ?MR#: [id number] ?? [id number] ? : 1975 ?Acct:[id number] ? Age/Sex: 48 / F ?ADM Date: 01/08/24 ? Loc: HO.HMGCX ? Attending Dr: Kathy Mcneill MD ? Ordering Physician: Kathy Mcneill ?? Date of Service: 05/20/23 ?? Procedure(s): US venous duplex LE LT ?? Accession Number(s): [id number] ? cc: Kathy Mcneill ? EXAMINATION: ? [...] 1339 ? DD/ 1316 ? TD/TT: ? Automotive Parts Counter Assistant: ? Procedure Note Ana, Image - 05/20/2023 [facility] [address] [place] [address] [place] [address] Ultrasound Report Signed Patient: Mulu Balderas#: [id number] : 1975Acct:[id number] Age/Sex: 48 / FADM Date: 05/20/23 [facility]: [facility] Attending Dr: Kathy Mcneill MD Ordering Physician: Kathy Mcneill Date of Service: 05/20/23 Procedure(s): US venous duplex LE LT Accession Number(s): [id number] cc: Kathy Mcneill EXAMINATION: US VENOUS ULTRASOUND [...] in OV> 05/20/23 1339 DD/ 1316 TD/TT: Automotive Parts Counter Assistant: us Kathy Mcneill MD IMG US PROCEDURES Final Result documented in this encounter Visit Diagnoses Not on filedocumented in this encounter Additional Health Concerns Assessment Noted Time PHQ-9 Depression Total Score: 0 05/10/20 23 3:34 PM EST documented as of this encounter Care Teams Aircraft Structural Fitter Relationship Specialty Start Date End Date Kathy Mcneill MD [address] [place] [address] PCP - General Family Medicine 01/06/22 Shayan Douglas FNP [address] [place] [address] Nurse Practitioner Family Medicine 04/16/23 documented as of this encounter
--- OUTSIDE RECORDS SUMMARY | 2024-08-25 16:14 | XMS_ITS | Encounter Summary ---
Author Organization [employer] Address 75 [facility] 7t [place] [address] Care Team Providers Care Paving And Surfacing Labourer Name Role Phone Kathy Mcneill MD Primary Care Provider [phone] Shayan Douglas Unavailable Unavailable Encounter Details Date Type Department Care Team ([facility] st Contact Info) Description 07/06/2024 Telephone [facility] MEDICINE 230 [place], [place] [phone] Kathy Mcneill MD 230 [place], [place] [phone] Social History Tobacco Use Types Packs/Day Years [...] EDT Office Visit [facility]INE [address] [place] [address] Kathy Mcneill MD [address] [place] [address] documented as of this encounter Visit Diagnoses Not on filedocumented in this encounter Additional Health Concerns Assessment Noted Time PHQ-9 Depression Total Score: 0 05/10/20 23 3:34 PM EST documented as of this encounter Care Teams Paving And Surfacing Labourer Relationship Specialty Start Date End Date Kathy Mcneill MD [address] [place] [address] PCP - General Family Medicine 01/06/22 Shayan Douglas FNP [address] [place] [address] Nurse Practitioner Family Medicine 04/16/23 documented as of this encounter
--- OUTSIDE RECORDS SUMMARY | 2024-08-25 16:14 | XMS_ITS | Encounter Summary ---
Author Organization [employer] Address 75 [facility] 7t [place] [address] Care Team Providers Care Structures Assembler Name Role Phone Kathy Mcneill MD Primary Care Provider [phone] Shayan Douglas Unavailable Unavailable Encounter Details Date Type Department Care Team ([facility] st Contact Info) Description 07/06/2024 Telephone [facility] MEDICINE 230 [place], [place] [phone] Kathy Mcneill MD 230 [place], [place] [phone] Social History Tobacco Use Types Packs/Day Years [...] Description 08/26/2024 3:15 PM EDT Office Visit [facility] MEDICINE [address] [place] [address] Kathy Mcneill MD [address] [place] [address] documented as of this encounter Visit Diagnoses Not on filedocumented in this encounter Additional Health Concerns Assessment Noted Time PHQ-9 Depression Total Score: 0 05/10/20 23 3:34 PM EST documented as of this encounter Care Teams Structures Assembler Relationship Specialty Start Date End Date Kathy Mcneill MD [address] [place] [address] PCP - General Family Medicine 01/06/22 Shayan Douglas FNP [address] [place] [address] Nurse Practitioner Family Medicine 04/16/23 documented as of this encounter
--- OUTSIDE RECORDS SUMMARY | 2024-08-25 16:14 | XMS_ITS | Encounter Summary ---
Author Organization [employer] Address 75 [facility] 7t [place] [address] Care Team Providers Care Regional Extension Service Specialist Name Role Phone Kathy Mcneill MD Primary Care Provider [phone] Shayan Douglas Unavailable Unavailable Reason for Visit * Reason Comments Med Refill Encounter Details Date Type Department Care Team ([facility] st Contact Info) Description 12/28/2023 Refill [facility] MED & PEDS [address] [place], [place] [phone] Kathy Mcneill MD 230 [place] [address] Migraine without aura and without status migrainosus, [...] Description 08/26/2024 3:15 PM EDT Office Visit [facility] [address] [place] [address] Kathy Mcneill MD [address] [place] [address] documented as of this encounter Visit Diagnoses Diagnosis Migraine without aura and without status migrainosus, not intractable documented in this encounter Additional Health Concerns Assessment Noted Time PHQ-9 Depression Total Score: 0 05/10/20 23 3:34 PM EST documented as of this encounter Care Teams Regional Extension Service Specialist Relationship Specialty Start Date End Date Kathy Mcneill MD [address] [place] [address] PCP - General Family Medicine 01/06/22 Shayan Douglas FNP [address] [place] [address] Nurse Practitioner Family Medicine 04/16/23 documented as of this encounter
== END 2024-08-25 13:37 | disposition home or self-care (01) ==
LOC: HO.HGS 13:18
PROVIDERS: PCP General Practice; Visit Provider Surgery
DX: D05.11 Intraductal carcinoma in situ of right breast (principal); N64.4 Mastodynia
CPT/HCPCS: 99213

== ENCOUNTER → 2024-08-25 13:18 | Outpatient (BNVA) | payer MEDICAID, SELFPAY | PROVIDERS: PCP General Practice; Visit Provider Surgery | DX: D05.11 Intraductal carcinoma in situ of right breast (principal); N64.4 Mastodynia | CPT/HCPCS: 99212 ==

== ENCOUNTER → 2024-09-07 13:03 | Outpatient (REF) | payer MEDICAID, SELFPAY ==
--- OUTSIDE RECORDS SUMMARY | 2024-09-07 15:35 | XMS_ITS | Encounter Summary ---
Author Organization [employer] Address 75 [facility] 7t [place] [address] Care Team Providers Care Secondary Set Up Man Name Role Phone Kathy Mcneill MD Primary Care Provider [phone] Shayan Douglas Unavailable Unavailable Encounter Details Date Type Department Care Team ([facility] st Contact Info) Description 07/06/2024 Telephone [facility] [address] [place] [address] Kathy Mcneill MD 230 [place] [address] Social History Tobacco Use Types Packs/Day Years [...] Care Team (Late st Contact Info) Description 12/21/2024 1:30 PM EDT Office Visit [facility] OPTOMETRY [address] [place] [address] Boris, Shara, OD 230 [place] [address] documented as of this encounter Visit Diagnoses Not on filedocumented in this encounter Additional Health Concerns Assessment Noted Time PHQ-9 Depression Total Score: 0 05/10/20 23 3:34 PM EST documented as of this encounter Care Teams Secondary Set Up Man Relationship Specialty Start Date End Date Kathy Mcneill MD [address] [place] [address] PCP - General Family Medicine 01/06/22 Shayan Douglas FNP [address] [place] [address] Nurse Practitioner Family Medicine 04/16/23 documented as of this encounter
--- OUTSIDE RECORDS SUMMARY | 2024-09-07 15:35 | XMS_ITS | Encounter Summary ---
Author Organization [employer] Address [address] [facility] [address] [place] [address] Care Team Providers Care Button Sawyer Name Role Phone Kathy Mcneill MD Primary Care Provider [phone] Shayan Douglas Unavailable Unavailable Reason for Visit * Reason Comments Med Refill Encounter Details Date Type Department Care Team ([facility] st Contact Info) Description 12/28/2023 Refill [facility] & PEDS [address] [place], [place] [phone] Kathy Mcneill MD 230 [place] [address] Migraine without aura and without status migrainosus, [...] Description 12/21/2024 1:30 PM EDT Office Visit [facility] OPTOMETRY [address] [place] [address] Shara Escalante, OD [address] [place] [address] documented as of this encounter Visit Diagnoses Diagnosis Migraine without aura and without status migrainosus, not intractable documented in this encounter Additional Health Concerns Assessment Noted Time PHQ-9 Depression Total Score: 0 05/10/20 23 3:34 PM EST documented as of this encounter Care Teams Button Sawyer Relationship Specialty Start Date End Date Kathy Mcneill MD [address] [place] [address] PCP - General Family Medicine 01/06/22 Shayan Douglas FNP [address] [place] [address] Nurse Practitioner Family Medicine 04/16/23 documented as of this encounter
--- OUTSIDE RECORDS SUMMARY | 2024-09-07 15:35 | XMS_ITS | Encounter Summary ---
Author Organization [employer] Address [address] [facility] 7t [place] [address] Care Team Providers Care Flame Gouger Name Role Phone aKthy Mcneill MD Primary Care Provider Shayan Douglas Unavailable Unavailable Reason for Visit * Reason Onset Date Comments Med Refill 07/22/2024 Encounter Details Date Type Department Care Team (Late st Contact Info) Description 07/22/2024 Refill [facility] MEDICINE [address] [place] [address] Kathy Mcneill MD 230 [place] [address] Social History Tobacco Use Types Packs/Day Years [...] Description 12/21/2024 1:30 PM EDT Office Visit [facility] OPTOMETRY [address] [place] [address] BorisShara mendez, OD 230 [place] [address] documented as of this encounter Visit Diagnoses Not on filedocumented in this encounter Additional Health Concerns Assessment Noted Time PHQ-9 Depression Total Score: 0 05/10/20 23 3:34 PM EST documented as of this encounter Care Teams Flame Gouger Relationship Specialty Start Date End Date Kathy Mcneill MD 230 [place] [address] PCP - General Family Medicine 01/06/22 Shayan Douglas FNP 230 [place] [address] Nurse Practitioner Family Medicine 04/16/23 documented as of this encounter
--- OUTSIDE RECORDS SUMMARY | 2024-09-07 15:35 | XMS_ITS | Encounter Summary ---
Author Organization [employer] Address [address] [facility] 7t [place] [address] Care Team Providers Care Newspaper Photographer Name Role Phone Kathy Mcneill MD Primary Care Provider Shayan Douglas Unavailable Unavailable Encounter Details Date Type Department Care Team ([facility] st Contact Info) Description 07/06/2024 Telephone [facility] MEDICINE [address] [place] [address] Kathy Mcneill MD [address] [place] [address] Social History Tobacco Use Types Packs/Day Years [...] Description 12/21/2024 1:30 PM EDT Office Visit [facility] OPTOMETRY [address] [place] [address] Boris, Shara, OD 230 [place] [address] documented as of this encounter Visit Diagnoses Not on filedocumented in this encounter Additional Health Concerns Assessment Noted Time PHQ-9 Depression Total Score: 0 05/10/20 23 3:34 PM EST documented as of this encounter Care Teams Newspaper Photographer Relationship Specialty Start Date End Date Kathy Mcneill MD [address] [place] [address] PCP - General Family Medicine 01/06/22 Shayan Douglas FNP [address] [place] [address] Nurse Practitioner Family Medicine 04/16/23 documented as of this encounter
--- OUTSIDE RECORDS SUMMARY | 2024-09-07 15:35 | XMS_ITS | Encounter Summary ---
Author Organization [employer] Address [address] [facility] [address] 7[address] [place] [address] Care Team Providers Care Diffusion Furnace Operator Name Role Phone Kathy Mcneill MD Primary Care Provider [phone] Shayan Douglas Unavailable Unavailable Reason for Visit * Reason Comments Med Refill Encounter Details Date Type Department Care Team ([facility] st Contact Info) Description 05/15/2024 Refill [facility] CH[facility] MED & PEDS [address] [place], [place] [phone] Kathy Mcneill MD [address] [place] [address] Migraine without aura and without status migrainosus, [...] Description 12/21/2024 1:30 PM EDT Office Visit [facility] OPTOMETRY [address] [place] [address] Shara Escalante, OD 230 [place] [address] documented as of this encounter Visit Diagnoses Diagnosis Migraine without aura and without status migrainosus, not intractable documented in this encounter Additional Health Concerns Assessment Noted Time PHQ-9 Depression Total Score: 0 05/10/20 23 3:34 PM EST documented as of this encounter Care Teams Diffusion Furnace Operator Relationship Specialty Start Date End Date Kathy Mcneill MD [address] [place] [address] PCP - General Family Medicine 01/06/22 Shayan Douglas FNP [address] [place] [address] Nurse Practitioner Family Medicine 04/16/23 documented as of this encounter
--- OUTSIDE RECORDS SUMMARY | 2024-09-07 15:35 | XMS_ITS | Encounter Summary ---
Author Organization [employer] Address 75 [facility] 7t [place] [address] Care Team Providers Care Epic Cadence Analyst Name Role Phone Kathy Mcneill MD Primary Care Provider [phone] Shayan Douglas Unavailable Unavailable Reason for Visit * Reason Comments Med Refill Encounter Details Date Type Department Care Team ([facility] st Contact Info) Description 06/08/2024 Refill [facility] MEDICINE [address] [place], [place] [phone] Kathy Mcneill MD 230 [place], [place] [phone] Smoking Social History Tobacco Use Types Packs/Day [...] Description 12/21/2024 1:30 PM EDT Office Visit [facility] OPTOMETRY [address] [place] [address] BorisShara mendez, OD 230 [place] [address] documented as of this encounter Visit Diagnoses Diagnosis Smoking Tobacco use disorder documented in this encounter Additional Health Concerns Assessment Noted Time PHQ-9 Depression Total Score: 0 05/10/20 23 3:34 PM EST documented as of this encounter Care Teams Epic Cadence Analyst Relationship Specialty Start Date End Date Kathy Mcneill MD [address] [place] [address] PCP - General Family Medicine 01/06/22 Shayan Douglas FNP [address] [place] [address] Nurse Practitioner Family Medicine 04/16/23 documented as of this encounter
--- OUTSIDE RECORDS SUMMARY | 2024-09-07 15:35 | XMS_ITS | Clinical Summary ---
Author Organization [employer] Address [address] [place] [address] 7t [place] [address] Care Team Providers Care Education And Training Coordinator Name Role Phone Kathy Mcneill MD Primary Care Provider [phone] Shayan Douglas Unavailable Unavailable Allergies Active Allergy [...] on face). 60 g 1 023 Active amLODIPine (Norvasc) 10 MG tabletIndication s:Primary hypertension TAKE 1 TABLET BY MOUTH EVERYDAY AT NOON ((for high blood pressure)) 90 tablet 3 024 Active Bisacodyl EC 5 MG EC tablet TAKE 4 TABLETS BY MOUTH ONCE WITH A FULL GLASS OF WATER AT NOON DAY BEFORE PROCEDURE DIRECTED. 024 Active Fiber-Lax 625 MG tablet Take 1 [...] Total dose of 240mg daily 30 tablet 025 2025 Active valsartan (Diovan) 80 MG tabletIndication s:Secondary hypertension Take 1 tablet (80 mg) by mouth Once per day. Total dose of 240mg daily 30 tablet 025 2025 Active gabapentin (Neurontin) 100 MG capsuleIndicatio ns:Migraine without aura and without status migrainosus, not intractable TAKE 1 CAPSULE BY MOUTH AT NOON, EVENING, AND BEDTIME 90 capsule 3 Active mirtazapine (Remeron) 30 MG tabletIndication s:Other [...] Active varenicline (Chantix) 0.5 MG tablet Take 1 tablet (0.5 mg) by mouth 2 times daily. Take with full glass of water. 60 tablet 025 Active levothyroxine (Synthroid, Levoxyl) 125 MCG tabletIndication s:Hypothyroidism , unspecified type TAKE 1 TABLET BY MOUTH EVERY MORNING 90 tablet 3 025 Active levothyroxine (Synthroid, Levoxyl) 125 MCG tabletIndication s:Hypothyroidism , unspecified type TAKE 1 TABLET BY MOUTH EVERY MORNING 90 tablet 3 024 2024 Discontinued varenicline (Chantix) 0.5 MG tablet Take 0.5 mg by mouth 2 times daily. Take with full glass of water. 2024 Discontinued(R eorder (will not trigger notification [...] results and refer for any abnormal to developmental mathematics professor for biopsy Cigarette nicotine dependence without complicati on 04/11/2023 Assessment & Plan (04/11/2023 12:44 PM [...] AM EDT): [place] Osuna [place] [facility] [place] Reassuring US in 10/2021, with simple cysts in L breast Continue q6 month followup Assessment & Plan (05/02/2022 12:11 PM EST): Last saw Dr Osuna at [facility] 04/20[place] Reassuring US in 10/2021, with simple cysts Migraines 03/31/2022 Myocardial infarction 03/31/2022 Assessment & Plan (07/31/2022 11:19 AM EDT): NSTEMI, continue Bblocker, statin, ASA Vitamin D deficiency 03/31/2022 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 Assessment & Plan (05/22/2024 8:33 AM EST): Continue conservative management Assessment & Plan (07/31/2022 11:18 AM EDT): 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 08/26/2024 Telephone [facility] MEDICINE [address] [place] [address] Kathy Mcneill MD No Show 07/24/2024 Population Health Risk Score [facility] Department [address] [phone] Provider, Population Health Generic 07/22/2024 Orders Only GENERIC EXTERNAL DATA DEPARTMENT Provider, Generic External Data 07/22/2024 Refill [facility] MEDICINE [address] [place] [address] Kathy Mcneill MD 07/09/2024 Orders Only [facility] External Provider, [facility] 07/06/2024 Telephone [facility] MEDICINE [address] [place] [address] Kathy Mcneill MD 07/06/2024 Refill [facility] [address] [place] [address] Kathy Mcneill MD Right sided sciatica 07/06/2024 Telephone [facility]INE [address] [place] [address] Kathy Mcneill MD 06/17/2024 Refill [facility] MEDICINE [address] [place], [place] [phone] Kathy Mcneill MD Smoking 06/15/2024 Refill [facility] MEDICINE [address] [place], [place] [phone] Kathy Mcneill MD Other specified anxiety disorders from Last 3 Months Immunizations Name Administration [...] Description 12/21/2024 1:30 PM EDT Office Visit [facility] OPTOMETRY [address] [place] [address] Shara Escalante, OD [address] [place] [address] Health Maintenance Due Date Last Done Comments [...] 05/19/2024 SDOH Screening 08/13/2024 08/14/2023 Tobacco Screening 08/26/2025 08/26/2024 Lipid Panel 01/18/2026 01/18/2021, 07/28/2020 DTaP/Tdap/Td Vaccines [...] EDT) H. pylori Breath Test Negative Negative [facility] Comment:Antimicrobials, prot on pump inhibitors and bismuthpreparations are known to suppress H. pylori. Ingestingthese medications within two weeks prior to performing thebreath test may produce negative test results. A positiveresult is still clinically valid. 07/22/2024 9:10 AM EDT 07/23/2024 3:39 PM EDT us Generic External Data Provider LAB BLOOD ORDERAB LES Final Result [facility] [address] [place] [address] [phone] * VASC US Lower Extremity Venous Duplex Bilateral (07/09/2024 1:24 PM EST) 07/09/2024 1:24 PM EST Narrative [facility] - 07/09/2024 3:22 PM EST ? [facility] ?[address] ?[place] [address] ? Ultrasound Report ? Signed ? Patient: Andrey,Mulu ?MR#: [id number] ?? [id number] ? : 1975 ?Acct:[id number] ? Age/Sex: 49 / F ?ADM Date: 07/09/24 ? Loc: HO.US ? Attending Dr: Shirley Alexsi PA-C ? Ordering Physician: Shirley Alexis PA-C ?? Date of Service: 07/09/24 ?? Procedure(s): US venous duplex LE BI ?? Accession Number(s): [id number] ? cc: Kathy Mcneill; Shirley Alexis PA-C [...] 1324 ? TD/TT: 07/09/24 1350 ? Director Clinical Operations: ? Procedure Note Ana, Josefina - 07/09/[address] [address] Ultrasound Report Signed Patient: Mulu Balderas#: [id number] : 1975Acct:[id number] Age/Sex: 49 / FADM Date: 07/09/24 Loc: . Attending Dr: Shirley Alexis PA-C Ordering Physician: Shirley Alexis PA-C Date of Service: 07/09/24 Procedure(s): US venous duplex LE Accession Number(s): [id number] cc: Kathy Mcneill; Shirley Alexis PA-C EXAMINATION: [...] by: Kit Eller MD 07/09/2024 03:19 PM [facility] Dictated By: Kit Majano MD Signed By: <Electronically signed by Kit Limon MDin OV> 07/09/24 1519 DD/ 1324 TD/TT: 07/09/24 1350 Director Clinical Operations: [facility] External Provider CV VASC ULAR PROCEDURES Final Result Performing Organization Address [facility] Co de Phone Number [facility] [address] [place] [address] * HPV mRNA E6/E7 w/Reflex to HPV Genotypes 16, 18/45 (05/10/2023 4:56 PM EST) HPV nRNA E6/E7 Not Detected Not Detected [facility] Comment:Methodology: Transcr iption-Mediated AmplificationThis assay detects E6/E7 viral messenger RNA (mRNA) from 14high-risk HPV types (16,18,31,33,35,39,45,51,52,56,58,59,66,68).Cervical sources are required for HPV testing.If a vaginal source from a patient who has had atotal hysterectomy with removal of cervix wassubmitted, please contact the testing laboratoryfor alternative testing options.For additional information, please refer tohttp://education.Tailster/faq/IZC914y8(This link if provided for information/educational purposes only.)THIS TEST WAS PERFORMED AT:[employer] [place] [phone] CRUZ MD HPV mRNA E6/E7 [facility] HPV 16 RNA [facility] HPV 18/45 RNA [facility] 05/10/2023 4:56 PM EST 05/14/2023 8:00 AM EST Kathy Mcneill MD LAB CYTOLOGY ORDERABLES Final Result Performing Organization Address [facility]/ZIP Co de Phone Number [facility] [address] [place] [phone] * Pap Smear (05/10/2023 4:56 PM EST) 05/10/2023 4:56 PM EST 05/14/2023 8:00 AM EST Narrative [facility] - 05/17/2023 1:44 PM EST ----- ------- Name: Mulu Balderas ?Age/Sex: 48/F ? : 1975 Unit#: [id number] ?? Attend Dr: Kathy Mcneill ?Re05/10/23 ?Status: DEP REF ? Location: HO.HHCLNP ? Disch: ? ----- ------- SPEC : [id number] ? RECD: 05/14/23 ? STATUS: ??SOUT ? REQ NUM: [id number] ? NORTH: 05/10/23-1655 ? SUBM DR: Kathy [...] 66, 68) ?? HPV testing performed by [facility], [place], [place]. ??See reference laboratory ?? portion of the EMR for entire report. ?Clinical Information LMP: Menopause Previous PAP test: Unknown date/findings ? Material Received ?? ThinPrep-Cervical ----- ------- Signed (signature on file) INNA Cobb (ASC) 05/17/23 1194 ? ----- ------- ? END OF REPORT ? Kathy Mcneill MD LAB CYTOLOGY ORDERABLES Final Result Performing Organization Address [facility] Co de Phone Number [facility] [address] [place] [phone] * Hepatitis C Ab (04/08/2023 2:44 PM EST) Pathologist [facility] Hepatitis C Antibody Nonreactive Nonreactive [facility] Comment:Antibodies to HCV no t detected; does not exclude early acuteHCV infection. Blood Venous blood specimen / Unknown 04/08/2023 2:44 PM EST 04/08/2023 4:15 PM EST Kathy Mcneill MD LAB BLOOD ORDERABLES Final Res ult Performing Organization Address [facility] de Phone Number [facility] [address] [place] [phone] * HIV-1/2 Antigen and Antibodies, Fourth Generation, with Reflexes (04/08/2023 2:44 PM EST) Pathologist [facility] HIV AB/AG Nonreactive Nonreactive [facility] Comment:HIV-1 p24 Ag and/or HIV-1/HIV-2 Ab not detected.A test result that is nonreactive does not exclude thepossibility of exposure to or infection with HIV-1 and/orHIV-2. Nonreactive results in this assay for individualswith prior exposure to HIV-1 and/or HIV-2 may be due toantigen and antibody levels that are below the limit ofdetection of this assay.The Arc[employer]niEdamam HIV Ag/Ab Combo assay result andsupplemental assay results should be interpreted inconjunction with the patient's clinical presentation,history and other laboratory results. If the results areinconsistent with clinical evidence, additional testing issuggested to confirm the result. Blood Venous blood specimen / Unknown 04/08/2023 2:44 PM EST 04/08/2023 4:15 PM EST us Kathy Mcneill MD LAB BLOOD ORDERABLES Final Res ult Performing Organization Address City/[facility]/ZIP Co de Phone Number [facility] [address] [place] [phone] * (ABNORMAL) LIPID PANEL, STANDARD (01/18/2021 2:59 PM EDT) Chol/HDLC Ratio 2.6 <5.0 (calc) [facility] Cholesterol, Total 115 <200 mg/dL [facility] HDL Cholesterol 44(L) > OR = 50 mg/dL [facility] LDL Cholesterol 51 mg/dL (calc) [facility] Comment: Reference range: <100 ?? Desirable range <100 mg/dL for primary prevention; ?? <70 mg/dL for patients with CHD or diabetic patients ?? with > or = 2 CHD risk factors. ?? LDL-C is now calculated using the Johnnie-Brewer ?? calculation, which is a validated novel method providing ?? better accuracy than the Friedewald equation in the ?? estimation of LDL-C. ?? Johnnie DELGADO et al. LAURENT. 2013;310(19): 7903-6506 ?? (http://education.Grouply.Showcase Gig/faq/FIQ527) Non-HDL Cholesterol 71 <130 mg/dL (calc) [facility] Comment: For patients with diabetes plus 1 major ASCVD risk ?? factor, treating to a non-HDL-C goal of <100 mg/dL ?? (LDL-C of <70 mg/dL) is considered a therapeutic ?? option. Triglycerides 110 <150 mg/dL [facility] 01/18/2021 2:59 PM EDT us Dayan CALVILLOP LAB BLOOD ORDERABLES Final Res ult Performing Organization Address City/[facility]/ZIP Co de Phone Number [facility] [address] [place] [address] from Last 3 Months or Most Recently Relevant to Health Maintenance Insurance [facility] C3 Care Teams Education And Training Coordinator Relationship Specialty Start Date End Date Kathy Mcneill MD [address] [place] [address] PCP - General Family Medicine 01/06/22 Shayan Douglas FNP [address] [place] [address] Nurse Practitioner Family Medicine 04/16/23
--- OUTSIDE RECORDS SUMMARY | 2024-09-07 15:35 | XMS_ITS | Encounter Summary ---
Author Organization [employer] Address [address] [facility] 7t [place] [address] Care Team Providers Care Correctional Nurse Name Role Phone Kathy Mcneill MD Primary Care Provider [phone] Shayan Douglas Unavailable Unavailable Reason for Visit * Reason Comments Med Refill Encounter Details Date Type Department Care Team ([facility] st Contact Info) Description 06/17/2024 Refill [facility] MEDICINE [address] [place], [place] [phone] Kathy Mcneill MD [address] [place], [place] [phone] Smoking Social History Tobacco Use Types Packs/Day [...] Description 12/21/2024 1:30 PM EDT Office Visit [facility] OPTOMETRY [address] [place] [address] BroisShara mendez, OD [address] [place] [address] documented as of this encounter Visit Diagnoses Diagnosis Smoking Tobacco use disorder documented in this encounter Additional Health Concerns Assessment Noted Time PHQ-9 Depression Total Score: 0 05/10/20 23 3:34 PM EST documented as of this encounter Care Teams Correctional Nurse Relationship Specialty Start Date End Date Kathy Mcneill MD [address] [place] [address] PCP - General Family Medicine 01/06/22 Shayan Douglas FNP [address] [place] [address] Nurse Practitioner Family Medicine 04/16/23 documented as of this encounter
--- OUTSIDE RECORDS SUMMARY | 2024-09-07 15:36 | XMS_ITS | Encounter Summary ---
Author Organization [employer] Address [address] [place] [address] Care Team Providers Care Slip Injector And Applicator Name Role Phone Kathy Mcneill MD Primary Care Provider [phone] Shayan Douglas Unavailable Unavailable Reason for Visit * Reason Comments Med Refill Encounter Details Date Type Department Care Team ([facility] st Contact Info) Description 02/22/2023 Refill [facility] MED & PEDS [address] [place], [place] [phone] Kathy Mcneill MD [address] [place] [address] Migraine without aura and without status migrainosus, [...] Description 12/21/2024 1:30 PM EDT Office Visit [facility] OPTOMETRY [address] [place] [address] Boirs, Shara, OD [address] [place] [address] documented as of this encounter Visit Diagnoses Diagnosis Migraine without aura and without status migrainosus, not intractable documented in this encounter Additional Health Concerns Assessment Noted Time PHQ-9 Depression Total Score: 4 02/05/20 3:48 PM EDT documented as of this encounter Care Teams Slip Injector And Applicator Relationship Specialty Start Date End Date Kathy Mcneill MD [address] [place] [address] PCP - General Family Medicine 01/06/22 Shayan Douglas FNP [address] [place] [address] Nurse Practitioner Family Medicine 04/16/23 documented as of this encounter
--- OUTSIDE RECORDS SUMMARY | 2024-09-07 15:36 | XMS_ITS | Encounter Summary ---
Author Organization [employer] Address [address] [facility] 7[address] [place] [address] Care Team Providers Care Milled Rice Broker Name Role Phone Kathy Mcneill MD Primary Care Provider [phone] Shayan Douglas Unavailable Unavailable Reason for Visit * Reason Comments Med Refill Encounter Details Date Type Department Care Team ([facility] st Contact Info) Description 09/02/2024 Refill [facility] MEDICINE [address] [place], [place] [phone] Kathy Mcneill MD [address] [place], [place] [phone] Hypothyroidism, unspecified type Social History Tobacco Use Types Packs/Day Years [...] Description 12/21/2024 1:30 PM EDT Office Visit [facility] OPTOMETRY [address] [place] [address] Shara Escalante, OD [address] [place] [address] documented as of this encounter Visit Diagnoses Diagnosis Hypothyroidism, unspecified type documented in this encounter Additional Health Concerns Assessment Noted Time PHQ-9 Depression Total Score: 0 05/10/20 23 3:34 PM EST documented as of this encounter Care Teams Milled Rice Broker Relationship Specialty Start Date End Date Kathy Mcneill MD [address] [place] [address] PCP - General Family Medicine 01/06/22 Shayan Douglas FNP [address] [place] [address] Nurse Practitioner Family Medicine 04/16/23 documented as of this encounter
--- OUTSIDE RECORDS SUMMARY | 2024-09-07 15:36 | XMS_ITS | Encounter Summary ---
Author Organization [employer] Address [address] [facility] 7t [place] [address] Care Team Providers Care Manager Of Data Name Role Phone Kathy Mcneill MD Primary Care Provider Shayan Douglas Unavailable Unavailable Encounter Details Date Type Department Care Team (Late st Contact Info) Description 05/15/2023 Orders Only [facility] MEDICINE [address] [place], [place] [phone] Kathy Mcneill MD [address] [place] [address] Social History Tobacco Use Types Packs/Day Years [...] Description 12/21/2024 1:30 PM EDT Office Visit [facility] OPTOMETRY [address] [place] [address] Boris, Shara, OD [address] [place] [address] documented as of this encounter Procedures Procedure Name Priority Date/Time Associated Diagnosis Comments US VENOUS DUPLEX LE LT Routine 05/20/2023 1:16 PM EST documented in this encounter Results * US VENOUS DUPLEX LE LT (05/20/2023 1:16 PM EST) Anatomical Region Laterality Modality Abdomen Ultrasound 05/20/2023 1:16 PM EST Narrative 05/20/2023 1:43 PM EST ? [facility] ?[address] ? [place] [address] ? Ultrasound Report ? Signed ? Patient: Andrey,Mulu ?MR#: [id number] ?? [id number] ? : 1975 ?Acct:[id number] ? Age/Sex: 48 / F ?ADM Date: 05/20/23 ? Loc: [facility] ? Attending Dr: Kathy Mcneill MD ? Ordering Physician: Kathy Mcneill ?? Date of Service: 05/20/23 ?? Procedure(s): US venous duplex LE LT ?? Accession Number(s): [id number] ? cc: Kathy Mcneill ? EXAMINATION: ? [...] 1339 ? DD/ 1316 ? TD/TT: ? Progress Developer: ? Procedure Note Ana, Image - 05/20/2023 [facility] [address] [place] [address] [place] [address] Ultrasound Report Signed Patient: Mulu Balderas#: [id number] : 1975Acct:[id number] Age/Sex: 48 / FADM Date: 05/20/23 [facility] Att[facility] Dr: Kathy Mcneill MD Ordering Physician: Kathy Mcneill Date of Service: 05/20/23 Procedure(s): US venous duplex LE Accession Number(s): [id number] cc: Kathy Mcneill EXAMINATION: US VENOUS ULTRASOUND [...] in OV> 05/20/23 1339 DD/ 1316 TD/TT: Progress Developer: us Kathy Mcneill MD IMG US PROCEDURES Final Result documented in this encounter Visit Diagnoses Not on filedocumented in this encounter Additional Health Concerns Assessment Noted Time PHQ-9 Depression Total Score: 0 05/10/20 23 3:34 PM EST documented as of this encounter Care Teams Manager Of Data Relationship Specialty Start Date End Date Kathy Mcneill MD [address] [place] [address] PCP - General Family Medicine 01/06/22 Shayan Douglas FNP [address] [place] [address] Nurse Practitioner Family Medicine 04/16/23 documented as of this encounter
== END ==
LOC: HO.CARD 13:03
PROVIDERS: PCP General Practice; Visit Provider Internal Medicine Cardiovascular Disease
DX: R00.2 Palpitations (principal)
CPT/HCPCS: 93242

== ENCOUNTER → 2024-09-07 13:05 | Outpatient (BNV) | payer MEDICAID, SELFPAY | PROVIDERS: PCP General Practice; Visit Provider Internal Medicine | DX: I49.3 Ventricular premature depolarization (principal) | CPT/HCPCS: 93244 ==

== ENCOUNTER 2024-09-23 14:07 | Outpatient (AMB) | payer MEDICAID, SELFPAY ==
--- NOTE | 2024-09-23 14:10 | MHC.OFFVIS ---
Intake Visit Reasons: Lymphedema Clinic Intake Note: Patient here for lymphedema clinic. Patient states she has issues with both legs but that her left leg is worse. Accompanied by: Self / Same As Patient Allergies Gadolinium-Containing Contrast Medi Allergy (Severe, Verified 09/23/24 14:11) Rash Iodinated Contrast Media [IV Contrast Dye] Allergy (Severe, Verified 09/23/24 14:11) Rash HPI HPI Lymphedema Clinic: Details: Mulu is presenting today for our lymphedema clinic. She continues to have bilateral lower extremity edema and discomfort, despite conservative treatments. She has also been diagnosed with lymphedema in the past but did not have further evaluation/treatment for it. She has no new concerns today. COUNT INCLUDES [facility] Medical History Fibromuscular dysplasia History of COVID-19 Sleep apnea History of radiation therapy Stroke Aneurysm NSTEMI (non-ST elevated myocardial infarction) Gout Hypertension Hypothyroidism Ductal carcinoma in situ (DCIS) of right breast Surgical History History of lumpectomy of left breast (02/12/24) History of removal of cyst History of breast lump/mass excision (07/09/22) Status post cardiac catheterization History of right breast biopsy (09/08/19) History of endometrial ablation (2010) History of bilateral tubal ligation (2003) History of lumpectomy of right breast (10/07/19) Family History Daughter Thyroid cancer Paternal Grandmother Breast cancer Thyroid cancer Diabetes Sister Diabetes HTN (hypertension) Sister HTN (hypertension) Sister HTN (hypertension) Sister HTN (hypertension) Sister HTN (hypertension) Father Brain tumor Mother Heart attack Social History Household Members: Other Household Members Other:: daughter Housing: Apartment Are you a primary child care center assistant director to a significant other at home: No Do you presently have visiting nurse or other home services: No 75 years or older and lives alone: No Alcohol intake: former Year quit: 2020 Patient Tobacco Use Status: Former Tobacco user Tobacco use type: Cigarette Years Smoked: 10 +/- service: No Current occupational status: employed Current occupation: rt handed Review of Systems Const Reports as per HPI and Denies weakness ENT Reports Normal hearing present and Denies dizziness Card Reports as per HPI, Denies chest pain, Denies chest pain at rest, Denies chest pain with activity, Denies dyspnea and Denies dyspnea on exertion Resp Reports as per HPI, Denies cough, Denies dyspnea and Denies dyspnea on exertion GI Reports as per HPI, Denies abdominal pain, Denies nausea and Denies vomiting Musc Denies numbness Skin/Breast Reports as per HPI, Denies erythema and Denies wounds Neuro Reports Normal hearing present, Denies dizziness, Denies numbness, Denies Sensory deficit (Neuro) and Denies weakness Psych Reports no additional complaints Endo Reports no additional complaints Physical Exam Const General: healthy appearing and no acute distress Orientation/consciousness: patient oriented x3 HEENT Head: Yes normal to inspection Ears: hearing grossly normal bilaterally Mouth: Normal oral and palatal mucosa present Resp Effort & Inspection: normal respiratory effort and able to speak in complete sentences Auscultation: clear to auscultation bilaterally Cardio Jugular venous distension: no JVD Rate: regular rate Rhythm: regular rhythm Heart sounds: S1 normal heart sound present and S2 normal heart sound present Bruits: no abdominal aortic bruits, no carotid bruits, no femoral bruits and no renal bruits Peripheral pulses: Peripheral pulses 2+ throughout GI Inspection: Yes normal to inspection Palpation (GI): No Abdominal aortic bruit present Skin General skin exam: no rashes or lesions noted Wounds: no wounds Hair: normal Neuro General: patient oriented x3 Cranial nerves: Yes Normal hearing present Cognition (Neuro): normal cognition Gait exam (Neuro): Normal gait present Motor exam (neuro): 5/5 motor strength present throughout Sensory Exam: No Sensory deficit (Neuro) Extrem Other: Bilateral lower extremities: +1 peripheral edema noted. Discoloration noted around the ankles. Palpable DP pulses. No tortuosities noted. General: Yes normal to inspection, Yes full ROM, Yes capillary refill normal and Yes normal gait Assessment & Plan Assessment & Plan (1) Lymphedema: Code(s): I89.0 - Lymphedema, not elsewhere classified Category: Medical Plan: Mulu is presenting today for our lymphedema clinic. She continues to endorse bilateral lower extremity swelling and discomfort. They have had more than 3 months, starting on 06/09/24, of conservative treatments with elevation, compression stockings daily use with 20-30mmHg, and physical activity with minimal relief. They continue to have persistent symptoms despite conservative treatments. They are presenting with hyperpigmentation, lymphorrhea, hyperkeratosis, and 1+ pitting edema. There is extension of lymphedema noted into the upper thighs and abdominal area. It appears that they has stage II lymphedema. [employer] from [employer] will be fitting them for a pneumatic compression device, which will get mailed to their house. The basic pneumatic compression device is not adequate for the patient; it is not clinically appropriate due to the extensive lymphedema noted. The advanced compression device will be the best in this case. Thank you allowing us to care for the patient. Coding Level of Care Code Est Pt Level 3 (84530) Diagnoses Lymphedema I89.0
--- OUTSIDE RECORDS SUMMARY | 2024-09-23 14:13 | XMS_ITS | Encounter Summary ---
Author Organization [employer] Address [address] [facility] [address] [place] [address] Care Team Providers Care Cut Out Machine Operator Name Role Phone Kathy Mcneill MD Primary Care Provider [phone] Shayan Douglas Unavailable Unavailable Reason for Visit * Reason Onset Date Comments Med Refill 07/22/2024 Encounter Details Date Type Department Care Team ([facility] st Contact Info) Description 07/22/2024 Refill [facility] MEDICINE [address] [place] [address] Kathy Mcneill MD [address] [place] [address] Social History Tobacco Use Types Packs/Day Years [...] 12/21/2024 1:30 PM EDT Office Visit [facility] OPTOMETRY [address] [place] [address] BorisShara mendez, OD [address] [place] [address] documented as of this encounter Visit Diagnoses Not on filedocumented in this encounter Additional Health Concerns Assessment Noted Time PHQ-9 Depression Total Score: 0 05/10/20 23 3:34 PM EST documented as of this encounter Care Teams Cut Out Machine Operator Relationship Specialty Start Date End Date Kathy Mcneill MD [address] [place] [address] PCP - General Family Medicine 01/06/22 Shayan Douglas FNP [address] [place] [address] Nurse Practitioner Family Medicine 04/16/23 documented as of this encounter
--- OUTSIDE RECORDS SUMMARY | 2024-09-23 14:13 | XMS_ITS | Encounter Summary ---
Author Organization [employer] Address [address] [facility] 7t [place] [address] Care Team Providers Care Administrative Services Manager Name Role Phone Kathy Mcneill MD Primary Care Provider [phone] Shayan Douglas Unavailable Unavailable Reason for Visit * Reason Comments Med Refill Encounter Details Date Type Department Care Team ([facility] st Contact Info) Description 02/22/2023 Refill [facility] MED & PEDS [address] [place] [address] Kathy Mcneill MD [address] [place] [address] Migraine without aura and without status migrainosus, [...] Description 12/21/2024 1:30 PM EDT Office Visit [facility] OPTOMETRY [address] [place] [address] Boris, Shara, OD [address] [place] [address] documented as of this encounter Visit Diagnoses Diagnosis Migraine without aura and without status migrainosus, not intractable documented in this encounter Additional Health Concerns Assessment Noted Time PHQ-9 Depression Total Score: 4 02/05/20 3:48 PM EDT documented as of this encounter Care Teams Administrative Services Manager Relationship Specialty Start Date End Date Kathy Mcneill MD [address] [place] [address] PCP - General Family Medicine 01/06/22 Shayan Douglas FNP [address] [place] [address] Nurse Practitioner Family Medicine 04/16/23 documented as of this encounter
--- OUTSIDE RECORDS SUMMARY | 2024-09-23 14:13 | XMS_ITS | Encounter Summary ---
Author Organization [employer] Address [address] [facility] [address] [place] [address] Care Team Providers Care Administrative Asst Name Role Phone Kathy Mcneill MD Primary Care Provider [phone] Shayan Douglas Unavailable Unavailable Reason for Visit * Reason Comments Med Refill Encounter Details Date Type Department Care Team (Late st Contact Info) Description 09/17/2024 Refill [facility] [address] [place], [place] [phone] Kathy Mcneill MD [address] [place], [place] [phone] Primary hypertension Social History Tobacco Use Types Packs/Day Years [...] 10:14 AM EDT Sexual Orientation Straight 04/08/2023 2 :20 PM EST documented as of this encounter Plan of Treatment Upcoming Encounters Date Type Department Care Team (Late st Contact Info) Description 12/21/2024 1:30 PM EDT Office Visit [facility] OPTOMETRY [address] [place] [address] BorisShara mendez, OD [address] [place] [address] documented as of this encounter Visit Diagnoses Diagnosis Primary hypertension Unspecified essential hypertension documented in this encounter Additional Health Concerns Assessment Noted Time PHQ-9 Depression Total Score: 0 05/10/20 23 3:34 PM EST documented as of this encounter Care Teams Administrative Asst Relationship Specialty Start Date End Date Kathy Mcneill MD [address] [place] [address] PCP - General Family Medicine 01/06/22 Shayan Douglas FNP [address] [place] [address] Nurse Practitioner Family Medicine 04/16/23 documented as of this encounter
--- OUTSIDE RECORDS SUMMARY | 2024-09-23 14:13 | XMS_ITS | Clinical Summary ---
Author Organization [employer] Address [address] [facility] 7t [place] [address] Care Team Providers Care Picture Frame Maker Name Role Phone Kathy Mcneill MD Primary Care Provider [phone] Shayan Douglas Unavailable Unavailable Allergies Active Allergy [...] on face). 60 g 1 023 Active Bisacodyl EC 5 MG EC tablet TAKE 4 TABLETS BY MOUTH ONCE WITH A FULL GLASS OF WATER AT NOON DAY BEFORE PROCEDURE DIRECTED. 024 Active Fiber-Lax 625 MG tablet Take 1 tablet by mouth 3 times daily. 024 Active D3 Super Strength 50 MCG (1999 UT) capsule TAKE 1 CAPSULE BY MOUTH EVERYDAY AT NOON 90 capsule 3 024 Active atorvastatin (Lipitor) 40 MG tablet TAKE 1 TABLET BY MOUTH AT BEDTIME 90 tablet 3 Active Bismuth Subsalicylate 262 MG capsuleIndicatio ns:Helicobacter pylori (H. pylori) infection Take 1 tablet by mouth 3 times daily. 42 capsule 025 Active buPROPion SR (Wellbutrin SR) 150 MG [...] FOR PAIN FOR 10 DAYS 30 tablet Active Lidoderm 5 % patchIndications :Right sided sciatica APPLY 1 PATCH TOPICALLY TO SKIN, LEAVE ON FOR 12 HOURS AND OFF FOR 12 HOURS DIRECTED 30 patch 1 Active Blood Pressure kit 1 each Once per day. Take BP Daily 1 kit Active varenicline (Chantix) 0.5 MG tablet Take 1 tablet (0.5 mg) by mouth 2 times daily. Take with full glass of water. 60 tablet Active levothyroxine (Synthroid, Levoxyl) 125 MCG tabletIndication s:Hypothyroidism , unspecified type TAKE 1 TABLET BY MOUTH EVERY MORNING 90 tablet 3 025 Active amLODIPine (Norvasc) 10 MG tabletIndication s:Primary hypertension TAKE 1 TABLET BY MOUTH EVERYDAY AT NOON (BLOOD PRESSURE) 90 tablet 3 025 Active ibuprofen 800 MG tabletIndication s:Chronic migraine with aura without status migrainosus, not intractable Take 1 tablet (800 mg) by mouth if needed each day for headaches. 30 tablet 025 2024 Active levothyroxine (Synthroid, Levoxyl) 125 MCG tabletIndication s:Hypothyroidism , unspecified type TAKE 1 TABLET BY MOUTH EVERY MORNING 90 tablet 3 024 2024 Discontinued amLODIPine (Norvasc) 10 MG tabletIndication s:Primary hypertension TAKE 1 TABLET BY MOUTH EVERYDAY AT NOON ((for high blood pressure)) 90 tablet 3 024 2024 Discontinued varenicline (Chantix) 0.5 MG tablet Take 0.5 mg by mouth 2 times daily. Take with full glass of water. 2024 Discontinued(R eorder (will not trigger notification to Pharmacy)) Active Problems Problem Noted Date Diagnosed Date Hypersomnia 09/18/2024 Helicobacter pylori (H. pylori) infection 2024 Tobacco [...] results and refer for any abnormal to vp product marketing for biopsy Cigarette nicotine dependence without complicati [...] AM EDT): Last saw Dr Osuna at [facility] 04/2022 Reassuring US in 10/2021, with simple cysts in L breast Continue q6 month followup Assessment & Plan (05/02/2022 12:11 PM EST): Last saw Dr Osuna at [facility] 04/2022 Reassuring US in 10/2021, with simple cysts Migraines 03/31/2022 Myocardial infarction 03/31/2022 Assessment & Plan (07/31/2022 11:19 AM EDT): NSTEMI, continue Bblocker, statin, ASA Vitamin D deficiency 03/31/2022 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 Assessment & Plan (05/22/2024 8:33 AM EST): Continue conservative management Assessment & Plan (07/31/2022 11:18 AM EDT): With ICA stent and resolved (according to CTA of head/neck from [facility]) aneurysm Will have pt return [...] Encounters Date Type Department Care Team Description 09/22/2024 Orders Only [facility] [address] [place] [address] ProviderLane MD 09/18/2024 3:15 PM EDT Office Visit [address] [address] Mihaela Ochoa, LITO Chronic migraine with aura without status migrainosus, not intractable (Primary Dx); Hypersomnia; Secondary hypertension 09/18/2024 Travel 09/18/[address] [phone] Kathy Mcneill MD No Show (Pt no show for sick on site ) 09/17/[address] [address] Angela Braswell [place] Chart Prep 09/17/[address] [address] Kathy Mcneill MD Nurse Triage 09/17/2024 Refill [facility] [address] [place] [address] Kathy Mcneill MD Primary hypertension 09/02/2024 Refill [facility] [address] [place] [address] Kathy Mcneill MD Hypothyroidism, unspecified type 08/26/2024 3:15 PM EDT Office Visit [facility] [address] [place] [address] Kathy Mcneill MD Tobacco abuse counseling (Primary Dx); Cigarette nicotine dependence without complication; Secondary hypertension 08/26/2024 Telephone [facility] [address] [place] [address] Kathy Mcneill MD Missed appt. 08/26/2024 Telephone [facility] [address] [place] [address] Kathy Mcneill MD No Show 07/24/2024 Population Health Risk Score [facility] () Department [address] [place] [phone] Provider, Population Health Generic 07/22/2024 Orders Only GENERIC EXTERNAL DATA DEPARTMENT Provider, Generic External Data 07/22/2024 Refill [facility] [address] [place] [address] Kathy Mcneill MD 07/09/2024 Orders Only [facility] External Provider, [facility] 07/06/2024 Telephone [facility] [address] [place] [address] Kathy Mcneill MD 07/06/2024 Refill [facility] [address] [place] [address] Kathy Mcneill MD Right sided sciatica 07/06/2024 Telephone [facility] [address] [place] [address] Kathy Mcneill MD from Last 3 Months Immunizations Immunization Administration Dates Next Due Influenza Injectable Quadriv [...] Sign Reading Time Taken Comments Blood Pressure 171/76 09/18/2024 3:50 PM EDT Pulse 72 09/18/2024 3:50 PM EDT Temperature 34.9 ??C (94.9 ??F) 09/18/2024 3:50 PM ED T Respiratory Rate 18 09/18/2024 3:50 PM EDT Oxygen Saturation 100% 05/19/2024 10:10 AM EST Inhaled Oxygen Concentration - - Weight 58.2 kg (128 lb 3.2 oz) 09/18/2024 3:50 P M EDT Height 157.5 cm (5' 2 ) 09/18/2024 3:50 PM EDT Body Mass Index 23.45 09/18/2024 3:50 PM EDT Plan of Treatment Upcoming Encounters Date Type Department Care Team (Late st Contact Info) Description 12/21/2024 1:30 PM EDT Office Visit [facility] [address] [place] [address] Boris, Shara, OD [address] [place] [address] Health Maintenance Due Date Last Done Comments CT Colonography 1975 FIT DNA/Cologuard 1975 FIT 1975 FOBT [...] 05/19/2024 SDOH Screening 08/13/2024 08/14/2023 Tobacco Screening 09/18/2025 09/18/2024 Lipid Panel 01/18/2026 01/18/2021, 07/28/2020 DTaP/Tdap/Td Vaccines (2 - Td or Tdap) 10/01/2026 10/01/2016, 05/22/2007, 06/21/1995 Cervical Cancer Screening 05/10/2028 HPV/Cotest 05/10/2028 05/10/2023, 10/01/2016 Pap Smear 05/10/2028 05/10/2023 Colonoscopy 02/19/2034 02/20/2024 Colorectal Cancer Screening 02/19/2034 RSV Patients and Patients Aged 60 years [...] DUPLEX BILATERAL Routine 07/09/2024 1:24 PM EST HM COLONOSCOPY Routine 02/20/2024 11:14 AM EDT HPV MRNA E6/E7 REFLEX TO HPV 16, [...] EDT) H. pylori Breath Test Negative Negative [facility] Comment:Antimicrobials, prot on pump inhibitors and bismuthpreparations are known to suppress H. pylori. Ingestingthese medications within two weeks prior to performing thebreath test may produce negative test results. A positiveresult is still clinically valid. 07/22/2024 9:10 AM EDT 07/23/2024 3:39 PM EDT us Generic External Data Provider LAB BLOOD ORDERAB LES Final Result [facility] [address] [place] [phone] * VASC US Lower Extremity Venous Duplex Bilateral (07/09/2024 1:24 PM EST) 07/09/2024 1:24 PM EST Narrative [facility] - 07/09/2024 3:22 PM EST ? [facility] ?[address] ?[place] [address] ? Ultrasound Report ? Signed ? Patient: Andrey,Mulu ?MR#: [id number] ?? [id number] ? : 1975 ?Acct:[id number] ? Age/Sex: 49 / F ?ADM Date: 07/09/24 ? Loc: HO.US ? Attending Dr: [place] Alexis PA-C ? Ordering Physician: [place] Alexis PA-C ?? Date of Service: 07/09/24 ?? Procedure(s): US venous duplex LE BI ?? Accession Number(s): [id number] ? cc: Kathy Mcneill; [place] Alexis PA-C [...] DD/ 1324 ? TD/TT: 07/09/24 1350 ? Chief Investment Officer: ? Procedure Note Josefina Perez - 07/09/2024 [place] [address] Ultrasound Report Signed Patient: Mulu BalderasMR#: [id number] : 1975Acct:[id number] Age/Sex: 49 / FADM Date: 07/09/24 Loc: HO.US Attending Dr: [place] Alexis PA-C Ordering Physician: [place] Alexis PA-C Date of Service: 07/09/24 Procedure(s): US venous duplex LE BI Accession Number(s): [id number] cc: Kathy Mcneill; [place] Alexis PA-C EXAMINATION: [...] by: Kit Eller MD 07/09/2024 03:19 PM [facility] Dictated By: Kit Majano MD Signed By: <Electronically signed by Kit Limon MDin OV> 07/09/24 1519 DD/ 1324 TD/TT: 07/09/24 1350 Chief Investment Officer: [facility] External Provider CV VASC ULAR PROCEDURES Final Result [facility] [address] [place] [address] * Hm Colonoscopy (02/20/2024 11:14 AM EDT) Colonoscopy Normal Normal Narrative Yue Biggs - 02/20/2024 11:14 AM EDT Recommended 10 years see external hospital admission note on 02/20/2024 Historical Provider HEALTH MAINTENANCE Edited Result - Final * HPV mRNA E6/E7 w/Reflex to HPV Genotypes 16, 18/45 (05/10/2023 4:56 PM EST) HPV nRNA E6/E7 Not Detected Not Detected [facility] Comment:Methodology: Transcr iption-Mediated AmplificationThis assay detects E6/E7 viral messenger RNA (mRNA) from 14high-risk HPV types (16,18,31,33,35,39,45,51,52,56,58,59,66,68).Cervical sources are required for HPV testing.If a vaginal source from a patient who has had atotal hysterectomy with removal of cervix wassubmitted, please contact the testing laboratoryfor alternative testing options.For additional information, please refer tohttp://education.Scutum/faq/NGE540u4(This link if provided for information/educational purposes only.)THIS TEST WAS PERFORMED AT:[employer] [place] [phone] CRUZ MD HPV mRNA E6/E7 [facility] HPV 16 RNA [facility] HPV 18/45 RNA [facility] 05/10/2023 4:56 PM EST 05/14/2023 8:00 AM EST Kathy Mcneill MD LAB CYTOLOGY ORDERABLES Final Result [facility] [address] [place] [phone] * Pap Smear (05/10/2023 4:56 PM EST) 05/10/2023 4:56 PM EST 05/14/2023 8:00 AM EST Narrative [facility] - 05/17/2023 1:44 PM EST ----- ------- Name: uMlu Balderas ?Age/Sex: 48/F ? : 1975 Unit#: [id number] ?? Attend Dr: Kathy Mcneill ?Re05/10/23 ?Status: DEP REF ? Location: HO.HHCLNP ? Disch: ? ----- ------- SPEC : [id number] ? RECD: 05/14/23 ? STATUS: ??SOUT ? REQ NUM: [id number] ? NORTH: 05/10/231655 ? SUBM DR: Kathy [...] 66, 68) ?? HPV testing performed by [employer], [place], [place]. ??See reference laboratory ?? portion of the EMR for entire report. ?Clinical Information LMP: Menopause Previous PAP test: Unknown date/findings ? Material Received ?? ThinPrep-Cervical ----- ------- Signed (signature on file) INNA Cobb (ASCP) 05/17/23 1344 ? ----- ------- ? END OF REPORT ? us Kathy Mcneill MD LAB CYTOLOGY ORDERABLES Final Result Performing Organization Address [facility] Co de Phone Number [facility] [address] [place] [address] [phone] * Hepatitis C Ab (04/08/2023 2:44 PM EST) Hepatitis C Antibody Nonreactive Nonreactive [facility] Comment:Antibodies to HCV no t detected; does not exclude early acuteHCV infection. Blood Venous blood specimen / Unknown 04/08/2023 2:44 PM EST 04/08/2023 4:15 PM EST us Kathy Mcneill MD LAB BLOOD ORDERABLES Final Res ult Performing Organization Address [facility] Co de Phone Number [facility] [address] [place] [address] [phone] * HIV-1/2 Antigen and Antibodies, Fourth Generation, with Reflexes (04/08/2023 2:44 PM EST) Pathologist [facility] HIV AB/AG Nonreactive Nonreactive [facility] Comment:HIV-1 p24 Ag and/or HIV-1/HIV-2 Ab not detected.A test result that is nonreactive does not exclude thepossibility of exposure to or infection with HIV-1 and/orHIV-2. Nonreactive results in this assay for individualswith prior exposure to HIV-1 and/or HIV-2 may be due toantigen and antibody levels that are below the limit ofdetection of this assay.The [employer] HTI HIV Ag/Ab Combo assay result andsupplemental assay results should be interpreted inconjunction with the patient's clinical presentation,history and other laboratory results. If the results areinconsistent with clinical evidence, additional testing issuggested to confirm the result. Blood Venous blood specimen / Unknown 04/08/2023 2:44 PM EST 04/08/2023 4:15 PM EST us Kathy Mcneill MD LAB BLOOD ORDERABLES Final Res ult Performing Organization Address [facility]/ZIP Co de Phone Number [facility] [address] [place] [address] [phone] * (ABNORMAL) LIPID PANEL, STANDARD (01/18/2021 [...] ?? Johnnie SS et al. LAURENT. 2013;310(19): 0405-7058 ?? (http://education.INFOGRAPHIQS.[employer]/faq/PVH755) Non-HDL Cholesterol 71 <130 mg/dL (calc) [facility] Comment: For patients with diabetes plus 1 major ASCVD risk ?? factor, treating to a non-HDL-C goal of <100 mg/dL ?? (LDL-C of <70 mg/dL) is considered a therapeutic ?? option. Triglycerides 110 <150 mg/dL FOUND ATFORMERLY [facility] 01/18/2021 2:59 PM EDT us Dayan Diez FIRMWARE ENGINEER LAB BLOOD ORDERABLES Final Res ult [facility] [address] from Last 3 Months or Most Recently Relevant to Health Maintenance Insurance [employer] Care Teams Picture Frame Maker Relationship Specialty Start Date End Date Kathy Mcneill MD [address] [place] [address] PCP - General Family Medicine 01/06/22 Shayan Douglas FNP [address] [place] [address] Nurse Practitioner Family Medicine 04/16/23
--- OUTSIDE RECORDS SUMMARY | 2024-09-23 14:13 | XMS_ITS | Encounter Summary ---
Author Organization [employer] Address [address] [facility] 7t [place] [address] Care Team Providers Care Vc++ Developer Name Role Phone Kathy Mcneill MD Primary Care Provider [phone] Shayan Douglas Unavailable Unavailable Encounter Details Date Type Department Care Team (Latest Contact Info) Description 09/18/2024 Travel Social History Tobacco Use Types Packs/Day [...] 1:30 PM EDT Office Visit [facility] [address] [place] [address] Boris, Shara, OD [address] [place] [address] documented as of this encounter Visit Diagnoses Not on filedocumented in this encounter Additional Health Concerns Assessment Noted Time PHQ-9 Depression Total Score: 0 05/10/20 23 3:34 PM EST documented as of this encounter Care Teams Vc++ Developer Relationship Specialty Start Date End Date Kathy Mcneill MD [address] [place] [address] PCP - General Family Medicine 01/06/22 Shayan Douglas FNP [address] [place] [address] Nurse Practitioner Family Medicine 04/16/23 documented as of this encounter
--- OUTSIDE RECORDS SUMMARY | 2024-09-23 14:13 | XMS_ITS | Encounter Summary ---
Author Organization [employer] Address [address] [facility] [address] [place] [address] Care Team Providers Care Cycle Manager Name Role Phone Kathy Mcneill MD Primary Care Provider [phone] Shayan Douglas Unavailable Unavailable Reason for Visit * Reason Comments Med Refill Encounter Details Date Type Department Care Team ([facility] st Contact Info) Description 06/08/2024 Refill [facility] [address] [place], [place] [phone] Kathy Mcneill MD [address] [place], [place] [phone] Smoking Social History Tobacco Use Types Packs/Day [...] Description 12/21/2024 1:30 PM EDT Office Visit [facility] [address] [place] [address] BorisShara mendez, OD [address] [place] [address] documented as of this encounter Visit Diagnoses Diagnosis Smoking Tobacco use disorder documented in this encounter Additional Health Concerns Assessment Noted Time PHQ-9 Depression Total Score: 0 05/10/20 23 3:34 PM EST documented as of this encounter Care Teams Cycle Manager Relationship Specialty Start Date End Date Kathy Mcneill MD [address] [place] [address] PCP - General Family Medicine 01/06/22 Shayan Douglas FNP [address] [place] [address] Nurse Practitioner Family Medicine 04/16/23 documented as of this encounter
--- OUTSIDE RECORDS SUMMARY | 2024-09-23 14:13 | XMS_ITS | Encounter Summary ---
Author Organization [employer] Address [address] [facility] [address]t [place] [address] Care Team Providers Care Merchandising Assistant Name Role Phone Kathy Mcneill MD Primary Care Provider [phone] Shayan Douglas Unavailable Unavailable Encounter Details Date Type Department Care Team ([facility] st Contact Info) Description 05/15/2023 Orders Only [facility] [address] [place], [place] [phone] Kathy Mcneill MD [address] [place] [address] Social History Tobacco Use Types Packs/Day Years [...] 1:30 PM EDT Office Visit [facility] [address] [place] [address] Boris, Shara, OD [address] [place] [address] documented as of this encounter Procedures Procedure Name Priority Date/Time Associated Diagnosis Comments US VENOUS DUPLEX LE LT Routine 05/20/2023 1:16 PM EST documented in this encounter Results * US VENOUS DUPLEX LE LT (05/20/2023 1:16 PM EST) Anatomical Region Laterality Modality Abdomen Ultrasound 05/20/2023 1:16 PM EST Narrative 05/20/2023 1:43 PM EST ? [facility] ?[address] ? [place] [address] ? Ultrasound Report ? Signed ? Patient: Andrey,Mulu ?MR#: [id number] ?? [id number] ? : 1975 ?Acct:[id number] ? Age/Sex: 48 / F ?ADM Date: 05/20/ ? Loc: HO.HMGCX ? Attending Dr: Kathy Mcneill MD ? Ordering Physician: Kathy Mcneill ?? Date of Service: 05/20/23 ?? Procedure(s): US venous duplex LE LT ?? Accession Number(s): [id number] ? cc: Kathy Mcneill ? EXAMINATION: ? [...] 1339 ? DD/ 1316 ? TD/TT: ? Bread Racker: ? Procedure Note Ana, Image - 05/20/2023 [facility] [address] [place] [address] [place] [address] Ultrasound Report Signed Patient: Mulu Balderas#: [id number] : 1975Acct:[id number] Age/Sex: 48 / FADM Date: 05/20/23 [facility]: Kathy Mcneill MD Ordering Physician: Kathy Mcneill Date of Service: 05/20/23 Procedure(s): US venous duplex LE Accession Number(s): [id number] cc: Kathy Mcneill EXAMINATION: US VENOUS ULTRASOUND [...] in OV> 05/20/23 1339 DD/ 1316 TD/TT: Bread Racker: us Kathy Mcneill MD IMG US PROCEDURES Final Result documented in this encounter Visit Diagnoses Not on filedocumented in this encounter Additional Health Concerns Assessment Noted Time PHQ-9 Depression Total Score: 0 05/10/20 23 3:34 PM EST documented as of this encounter Care Teams Merchandising Assistant Relationship Specialty Start Date End Date Kathy Mcneill MD [address] [place] [address] PCP - General Family Medicine 01/06/22 Shayan Douglas FNP [address] [place] [address] Nurse Practitioner Family Medicine 04/16/23 documented as of this encounter
--- OUTSIDE RECORDS SUMMARY | 2024-09-23 14:13 | XMS_ITS | Encounter Summary ---
Author Organization [employer] Address [address] [facility] [address] [place] [address] Care Team Providers Care Blood Bank Laboratory Professional Name Role Phone Kathy Mcneill MD Primary Care Provider [phone] Shayan Douglas Unavailable Unavailable Encounter Details Date Type Department Care Team (Late st Contact Info) Description 09/22/2024 Orders Only [facility] [address] [place], [place] [phone] Provider, MD Lane Social History Tobacco Use Types Packs/Day Years [...] is your housing situation today? I have pamelajosh multani 08/14/[address] you [...] Description 12/21/2024 1:30 PM EDT Office Visit [facility] [address] [place], [place] [phone] Shara Escalante, OD [address] [place] [address] documented as of this encounter Procedures Procedure Name Priority Date/Time Associated Diagnosis Comments COLONOSCOPY Routine 02/20/2024 11:14 AM EDT documented in this encounter Results * Hm Colonoscopy (02/20/2024 11:14 AM EDT) Colonoscopy Normal Normal Narrative Yue Biggs - 02/20/2024 11:14 AM EDT Recommended 10 years see external hospital admission note on 02/20/2024 us Historical Provider HEALTH MAINTENANCE Edited Result - Final documented in this encounter Visit Diagnoses Not on filedocumented in this encounter Additional Health Concerns Assessment Noted Time PHQ-9 Depression Total Score: 0 05/10/20 23 3:34 PM EST documented as of this encounter Care Teams Blood Bank Laboratory Professional Relationship Specialty Start Date End Date Kathy Mcneill MD [address] [place], [place] [phone] PCP - General Family Medicine 01/06/22 Shayan Douglas FNP [address] [place] [address] Nurse Practitioner Family Medicine 04/16/23 documented as of this encounter
--- OUTSIDE RECORDS SUMMARY | 2024-09-23 14:13 | XMS_ITS | Encounter Summary ---
Author Organization [employer] Address [address] [facility] 7t [place] [address] Care Team Providers Care Car Groomer Name Role Phone Kathy Mcneill MD Primary Care Provider [phone] Shayan Douglas Unavailable Unavailable Reason for Visit * Reason Comments Med Refill Encounter Details Date Type Department Care Team ([facility] st Contact Info) Description 05/15/2024 Refill [facility] P[facility] [address] [place] [address] Kathy Mcneill MD [address] [place] [address] Migraine without aura and without status migrainosus, [...] Description 12/21/2024 1:30 PM EDT Office Visit [facility] OPTOM[facility] [address] [place] [address] Shara Escalante, OD [address] [place] [address] documented as of this encounter Visit Diagnoses Diagnosis Migraine without aura and without status migrainosus, not intractable documented in this encounter Additional Health Concerns Assessment Noted Time PHQ-9 Depression Total Score: 0 05/10/20 23 3:34 PM EST documented as of this encounter Care Teams Car Groomer Relationship Specialty Start Date End Date Kathy Mcneill MD [address] [place] [address] PCP - General Family Medicine 01/06/22 Shayan Douglas FNP [address] [place] [address] Nurse Practitioner Family Medicine 04/16/23 documented as of this encounter
--- OUTSIDE RECORDS SUMMARY | 2024-09-23 14:13 | XMS_ITS | Encounter Summary ---
Author Organization [employer] Address [address] [facility] 7t [place] [address] Care Team Providers Care Practice Consultant Name Role Phone Kathy Mcneill MD Primary Care Provider [phone] Shayan oDuglas Unavailable Unavailable Reason for Visit * Reason Comments Med Refill Encounter Details Date Type Department Care Team (Late st Contact Info) Description 06/17/2024 Refill [facility] MEDICINE [address] [place], [place] [phone] Kathy Mcneill MD [address] [place], [place] [phone] Smoking Social History Tobacco Use Types Packs/Day [...] 1:30 PM EDT Office Visit [facility] OPTOMETRY [address] [place] [address] BorisShara mendez, OD [address] [place] [address] documented as of this encounter Visit Diagnoses Diagnosis Smoking Tobacco use disorder documented in this encounter Additional Health Concerns Assessment Noted Time PHQ-9 Depression Total Score: 0 05/10/20 23 3:34 PM EST documented as of this encounter Care Teams Practice Consultant Relationship Specialty Start Date End Date Kathy Mcneill MD [address] [place] [address] PCP - General Family Medicine 01/06/22 Shayan Douglas FNP [address] [place] [address] Nurse Practitioner Family Medicine 04/16/23 documented as of this encounter
--- OUTSIDE RECORDS SUMMARY | 2024-09-23 14:13 | XMS_ITS | Encounter Summary ---
Author Organization [employer] Address [address] [facility] 7t [place] [address] Care Team Providers Care Manager Cleaning Name Role Phone Kathy Mcneill MD Primary Care Provider [phone] Shayan Douglas Unavailable Unavailable Reason for Visit * Reason Comments Med Refill Encounter Details Date Type Department Care Team ([facility] st Contact Info) Description 12/28/2023 Refill [facility] MED & PEDS [address] [place], [place] [phone] Kathy Mcneill MD [address] [place] [address] Migraine without aura and without status migrainosus, [...] Description 12/21/2024 1:30 PM EDT Office Visit [facility] OPTOMETRY [address] [place] [address] Shara Escalante, OD [address] [place] [address] documented as of this encounter Visit Diagnoses Diagnosis Migraine without aura and without status migrainosus, not intractable documented in this encounter Additional Health Concerns Assessment Noted Time PHQ-9 Depression Total Score: 0 05/10/20 23 3:34 PM EST documented as of this encounter Care Teams Manager Cleaning Relationship Specialty Start Date End Date Kathy Mcneill MD [address] [place] [address] PCP - General Family Medicine 01/06/22 Shayan Douglas FNP [address] [place] [address] Nurse Practitioner Family Medicine 04/16/23 documented as of this encounter
--- OUTSIDE RECORDS SUMMARY | 2024-09-23 14:13 | XMS_ITS | Encounter Summary ---
Author Organization [employer] Address [address] [place] [address] 7 [place] [address] Care Team Providers Care Cartoon Animator Name Role Phone Kathy Mcneill MD Primary Care Provider [phone] Shayan Douglas Unavailable Unavailable Reason for Referral * Consultation (Routine) - Authorized Specialty Diagnoses / Procedures Referred By Jeannie franklin Referred To Contact Sleep Medicine Diagnoses Hypersomnia Mihaela Ochoa CNP [address] [place] [address] Phone: tel: fax: Sleep Medicine Service [address], [address] [place] [address] Phone: tel: fax: Referral ID Status Reason Start Date Expiration Date Visits Requested Visits Authorized [id number] Authorized Specialty Services Required 09/18/2024 09/18/2025 6 6 Reason for Visit * Reason Comments sick onsite Encounter Details Date Type Department Care Team (Late st Contact Info) Description 09/18/2024 3:15 PM EDT Office Visit [facility] MEDICINE [address] [place] [address] Mihaela Ochoa CNP [address] [place] [address] Chronic migraine with aura without status migrainosus, not intractable (Primary Dx); Hypersomnia; Secondary hypertension Social History Tobacco Use Types Packs/Day [...] 18 09/18/2024 3:50 PM EDT Oxygen Saturation - - Inhaled Oxygen Concentration - - Weight 58.2 kg (128 lb 3.2 oz) 09/18/2024 3:50 P M EDT Height 157.5 cm (5' 2 ) 09/18/2024 3:50 PM EDT Body Mass Index 23.45 09/18/2024 3:50 PM EDT documented in this encounter Progress Notes * Mihaela Ochoa, LITO - 09/18/2024 3:15 PM EDT Subjective Patient ID: Lucy Balderas is a 49 y.o. female with hx of stoke, aneurysm, NSTEMI, HTN, Hypothyroidism, and gout who presents for fatigue. She reports she does have a hx of NICHOLAS, but she gave away herCPAP machine because she didn't want to use it. She does endorse hypersomnia and loud snoring. She is also reporting that her blood pressure is high and she has been suffering from a daily constant headache with some photosensitivity and flashing lights . She denies thunderclap MARTINEZ, diplopia, MARTINEZ waking her up out of sleep, increase in frequency or severity. She reports that she has a hx of chronic migraines but she thought that they couldn't come back since she had surgery for her aneurysm in the past. She says that ibuprofen 800mg has been helpful in the past. She says that she takes all of her meds as prescribed but she says one of her BP meds she is supposed to take twice daily and she only takes it twice daily. She reports she checks her BP in the morning before she takes her meds, she also drinks 1 coffee inthe morning. As for her diet she says she doesn't eat well. Interim Hx She saw her PCP 08/26/24 for chronic disease management. Per provider note: Dizziness: Saw ENT last month, they said her ears are fine and not the cause of dizziness, recommend going back to her neurovascular doctor, Dr. Solis Never went to vestibular rehab Is having intermittent headaches, getting glasses soon Pt had cardiology f/u on 08/12/24. Per provider note She is here for follow-up. She is complaining of palpitations which are happening up to 7 to 8 times a week. She feels her heart is racing. At times she wakes up from sleep with palpit ations and started feeling. Denying any chest discomfort shortness of breath. Otherwise doing well blood pressure is well controlled. Taking medications regularly. Office Procedures EKG Details: Sinus rhythm 76 beats per minute, normal axis, nonspecific ST changes, QTC 434 milliseconds. Plan included 7 day holter monitor and plan to f/u in a few months. Review of Systems Constitutional: Positive for fatigue. Negative for appetite change, chills, diaphoresis, fever and unexpected weight change. Eyes: Positive for photophobia. Respiratory: Negative for apnea, cough, chest tightness, shortness of breath and wheezing. Cardiovascular: Negative for chest pain and palpitations. Gastrointestinal: Negative for abdominal distention, abdominal pain, blood in stool, constipation, diarrhea, nausea and vomiting. Skin: Negative for pallor. Neurological: Positive for headaches. Negative for dizziness, syncope, speech difficulty, weakness,light-headedness and numbness. Psychiatric/Behavioral: Positive for sleep disturbance. Objective Vitals: 09/18/24 1550 BP: (!) 171/76 Pulse: 72 Resp: 18 Temp: 94.9 ??F (34.9 ??C) Physical Exam Constitutional: Appearance: Normal appearance. She is normal weight. Cardiovascular: Rate and Rhythm: Normal rate and regular rhythm. Pulses: Normal pulses. Heart sounds: Normal heart sounds. No murmur heard. No friction rub. No gallop. Pulmonary: Effort: Pulmonary effort is normal. No respiratory distress. Breath sounds: Normal breath sounds. No wheezing or rales. Neurological: General: No focal deficit present. Mental Status: She is alert and oriented to person, place, and time. Psychiatric: Mood and Affect: Mood normal. Behavior: Behavior normal. Thought Content: Thought content normal. Judgment: Judgment normal. Assessment/Plan Problem List Items Addressed This Visit Migraines - Primary Relevant Medications ibuprofen 800 MG tablet MARTINEZ seems to be consistent with chronic migraines with aura vs MARTINEZ related to uncontrolled BP No red flag signs Will send ibuprofen 800 mg for prn migraines Hypersomnia Relevant Orders Referral to Sleep Medicine CBC auto differential TSH W/Reflex to FT4 Comprehensive Metabolic Panel Vitamin B12/Folate, Serum Panel Iron And Total Iron Binding Capacity Vitamin D, 25-Hydroxy, Total, Immunoassay Plan to obtain bloodwork and a updated sleep study to evaluate her fatigue Advised her to continue to follow up with cardiology Hypertension BP uncontrolled >140/90 Pt asymptomatic today After chart review, pt should be taking metoprolol BID but she's taking once daily, advised her to take as prescribed. Advised her to check BP 1-2 hours after medication and record in BP log that was given today Plan to f/u in 2 weeks with RN for BP check [facility] GLUE BONE CRUSHER Attestation GLUE BONE CRUSHER Resident Attestation: Patient was seen and evaluated by Mihaela Ochoa CNP , in collaboration with James Suero MD who has reviewed my assessment and plan. I, James Suero MD, have reviewed the resident's note and agree with the assessment & plan of care as documented above. documented in this encounter Plan of Treatment Upcoming Encounters Date Type Department Care Team (Late st Contact Info) Description 12/21/2024 1:30 PM EDT Office Visit [facility] OPTOMETRY [address] [place], [place] [phone] Boris, Shara, OD [address] [place], [place] [phone] Scheduled Orders Name Type Priority Associated Diagnoses Orde r Schedule CBC auto differential Lab Routine Hypersomnia Expected: 09/18/2024 (Approximate), Expires: 09/18/2025 TSH W/Reflex to FT4 Lab Routine Hypersomnia Expected: 09/18/2024 (Approximate), Expires: 09/18/2025 Comprehensive Metabolic Panel Lab Routine Hypersomnia Expected: 09/18/2024 (Approximate), Expires: 09/18/2025 Vitamin B12/Folate, Serum Panel Lab Routine Hypersomnia Expected: 09/18/2024, Expires: 09/18/2025 Iron And Total Iron Binding Capacity Lab Routine Hypersomnia Expected: 09/18/2024, Expires: 09/18/2025 Vitamin D, 25-Hydroxy, Total, Immunoassay Lab Routine Hypersomnia Expected: 09/18/2024 (Approximate), Expires: 09/18/2025 Scheduled Referrals Name Type Priority Associated Diagnoses Orde r Schedule Referral to Sleep Medicine Outpatient Referral Routine Hypersomnia Expected: 09/18/2024 (Approximate), Expires: 09/18/2025 documented as of this encounter Visit Diagnoses Diagnosis Chronic migraine with aura without status migrainosus, not intractable- Primary Hypersomnia Hypersomnia, unspecified Secondary hypertension Other secondary hypertension, unspecified documented in this encounter Additional Health Concerns Assessment Noted Time PHQ-9 Depression Total Score: 0 05/10/20 23 3:34 PM EST documented as of this encounter Care Teams Cartoon Animator Relationship Specialty Start Date End Date Kathy Mcneill MD [address] [place] [address] PCP - General Family Medicine 01/06/22 Shayan Douglas FNP [address] [place] [address] Nurse Practitioner Family Medicine 04/16/23 documented as of this encounter
--- OUTSIDE RECORDS SUMMARY | 2024-09-23 14:13 | XMS_ITS | Encounter Summary ---
Author Organization [employer] Address [address] [facility] 7 [place] [address] Care Team Providers Care Patrol Judge Name Role Phone Kathy Mcneill MD Primary Care Provider [phone] Shayan Douglas Unavailable Unavailable Reason for Visit * Reason Onset Date Comments No Show 09/18/2024 Pt no show for s ick on site Encounter Details Date Type Department Care Team (Late st Contact Info) Description 09/18/2024 Telephone [facility] MEDICINE [address] [place] [address] Kathy Mcneill MD [address] [place] [address] No Show (Pt no show for sick on site ) Social History Tobacco Use Types Packs/Day Years [...] as of this encounter Miscellaneous Notes * Telephone Encounter - Sophia Ornelas RN - 09/18/2024 4:27 PM EDT Noted. Patient was seen today by LUIS Ochoa. * Telephone Encounter - Nell Boyle - 09/18/2024 3:32 PM EDT Pt no show for sick on site documented in this encounter Plan of Treatment Upcoming Encounters Date Type Department Care Team (Late st Contact Info) Description 12/21/2024 1:30 PM EDT Office Visit [facility] OPTOMETRY [address] [place] [address] Shara Escalante, OD [address] [place] [address] documented as of this encounter Visit Diagnoses Not on filedocumented in this encounter Additional Health Concerns Assessment Noted Time PHQ-9 Depression Total Score: 0 05/10/20 23 3:34 PM EST documented as of this encounter Care Teams Patrol Judge Relationship Specialty Start Date End Date Kathy Mcneill MD [address] [place] [address] PCP - General Family Medicine 01/06/22 Shayan Douglas FNP [address] [place] [address] Nurse Practitioner Family Medicine 04/16/23 documented as of this encounter
== END 2024-09-23 15:01 | disposition home or self-care (01) ==
LOC: HO.HVS 14:08
PROVIDERS: PCP General Practice; Visit Provider Physician Assistant Surgical
DX: I89.0 Lymphedema, not elsewhere classified (principal)
CPT/HCPCS: 99213

== ENCOUNTER → 2024-09-23 14:07 | Outpatient (BNVA) | payer MEDICAID, SELFPAY | PROVIDERS: PCP General Practice; Visit Provider Physician Assistant Surgical | DX: I89.0 Lymphedema, not elsewhere classified (principal); Z87.891 Personal history of nicotine dependence | CPT/HCPCS: 99212 ==

== ENCOUNTER 2024-09-24 08:55 | Outpatient (REF) | payer MEDICAID, SELFPAY ==
--- NOTE | ~2024-09-24 | US_ITS ---
EXAMINATION: MM DIAGNOSTIC DIGITAL BREAST TOMOSYNTHESIS, BILATERAL Bilateral Limited ultrasound. CLINICAL INFORMATION: Bilateral areas of pain. Patient has a history of right breast cancer status post lumpectomy. Patient has a history of left breast surgery. Patient has bilateral white nipple discharge. COMPARISON: Mammography: Comparison is made with relevant prior exams. TECHNIQUE: Digital breast mammography with tomosynthesis is performed in both the craniocaudal and mediolateral oblique views along with computer-aided detection (CAD). FINDINGS: The breasts are heterogeneously dense, which may obscure small masses (ACR BI-RADS breast composition Category c). Bilateral circumscribed oval masses which wax and wane consistent with benign fibrocystic changes. Some which were demonstrated to be simple cyst on prior ultrasounds. Right: Postoperative changes are stable. Triangular marker at the site of the patient's pain in the central inner breast without underlying abnormality. No suspicious calcifications masses or other abnormal findings. Targeted color Doppler ultrasound scanning in the retroareolar region and from 2-4 o'clock demonstrates normal fibronodular breast tissue. There is no sonographic abnormality. Left: [place] marker in the upper outer breast posterior depth and central inner breast anterior depth without underlying abnormality. BB marker in the lower inner breast at site of palpable lump without abnormality. Marker clip. Postsurgical changes. No suspicious masses calcifications or other abnormal findings. Targeted color Doppler ultrasound scanning in the left axilla upper outer quadrant retroareolar region demonstrates normal fibroglandular breast tissue. There is no sonographic abnormal findings. Results are provided to the patient at time of visit by the technologist. US/US breast BI limited mamm only IMPRESSION: No mammographic or sonographic abnormalities to account for the patient's bilateral retroareolar nipple discharge bilateral areas of patient's pain and left palpable lumps. Recommend clinical evaluation follow-up. ASSESSMENT: BI-RADS BI-RADS 2 - Benign Findings RECOMMENDATION: 1 year F/U This patient's information was entered into a reminder system with a target due date for their next mammogram. Electronically signed by: Tasha Persaud DO 09/24/2024 10:14 AM EDT
--- OUTSIDE RECORDS SUMMARY | 2024-09-24 09:22 | XMS_ITS | Encounter Summary ---
Author Organization [employer] Address [address] [facility] [address] 7t [place] [address] Care Team Providers Care Semiconductor Bonder Name Role Phone Kathy Mcneill MD Primary Care Provider [phone] Shayan Douglas Unavailable Unavailable Encounter Details Date Type Department Care Team (Late st Contact Info) Description 09/22/2024 Orders Only [facility] MED & PEDS [address] [place], [place] [phone] Provider, MD Lane Social History Tobacco Use [...] Description 12/21/2024 1:30 PM EDT Office Visit [facility] OPTOMETRY [address] [place], [place] [phone] Shara Escalante, OD [address] [place] [address] documented as of this encounter Procedures Procedure [...] documented as of this encounter Care Teams Semiconductor Bonder Relationship Specialty Start Date End Date Kathy Mcneill MD [address] [place], [place] [phone] PCP - General Family Medicine 01/06/22 Shayan Douglas FNP [address] [place] [address] Nurse Practitioner Family Medicine 04/16/23 documented as of this encounter
--- OUTSIDE RECORDS SUMMARY | 2024-09-24 09:22 | XMS_ITS | Encounter Summary ---
Author Organization [employer] Address [address] [facility] 7t [place] [address] Care Team Providers Care Cabinet Professional Name Role Phone Kathy Mcneill MD Primary Care Provider [phone] Shayan Douglas Unavailable Unavailable Reason for Visit * Reason Comments Med Refill Encounter Details Date Type Department Care Team ([facility] st Contact Info) Description 02/22/2023 Refill [facility] MED & PEDS [address] [place] [address] Kathy Mcneill MD [address] [place] [address] Migraine without aura and without status migrainosus, [...] Description 12/21/2024 1:30 PM EDT Office Visit [facility] OPTOMETRY [address] [place] [address] Boris, Shara, OD [address] [place] [address] documented as of this encounter Visit Diagnoses Diagnosis Migraine without aura and without status migrainosus, not intractable documented in this encounter Additional Health Concerns Assessment Noted Time PHQ-9 Depression Total Score: 4 02/05/20 3:48 PM EDT documented as of this encounter Care Teams Cabinet Professional Relationship Specialty Start Date End Date Kathy Mcneill MD [address] [place] [address] PCP - General Family Medicine 01/06/22 Shayan Douglas FNP [address] [place] [address] Nurse Practitioner Family Medicine 04/16/23 documented as of this encounter
--- OUTSIDE RECORDS SUMMARY | 2024-09-24 09:22 | XMS_ITS | Encounter Summary ---
Author Organization [employer] Address [address] [facility] [address]t [place] [address] Care Team Providers Care Electrical And Radio Mock Up Mechanic Name Role Phone Kathy Mcneill MD Primary Care Provider [phone] Shayan Douglas Unavailable Unavailable Reason for Visit * Reason Comments Med Refill Encounter Details Date Type Department Care Team ([facility] st Contact Info) Description 06/08/2024 Refill [facility] MEDICINE [address] [place], [place] [phone] Kathy Mcneill MD [address] [place], [place] [phone] Smoking Social History Tobacco Use Types Packs/Day [...] [facility] OPTOMETRY [address] [place] [address] BorisShara mendez, OD [address] [place] [address] documented as of this encounter Visit Diagnoses Diagnosis Smoking Tobacco use disorder documented in this encounter Additional Health Concerns Assessment Noted Time PHQ-9 Depression Total Score: 0 05/10/20 23 3:34 PM EST documented as of this encounter Care Teams Electrical And Radio Mock Up Mechanic Relationship Specialty Start Date End Date Kathy Mcneill MD [address] [place] [address] PCP - General Family Medicine 01/06/22 Shayan Douglas FNP [address] [place] [address] Nurse Practitioner Family Medicine 04/16/23 documented as of this encounter
--- OUTSIDE RECORDS SUMMARY | 2024-09-24 09:22 | XMS_ITS | Encounter Summary ---
Author Organization [employer] Address [address] [facility] [address]t [place] [address] Care Team Providers Care Round Up Ring Hand Name Role Phone Kathy Mcneill MD Primary Care Provider [phone] Shayan Douglas Unavailable Unavailable Reason for Visit * Reason Onset Date Comments Med Refill 07/22/2024 Encounter Details Date Type Department Care Team ([facility] st Contact Info) Description 07/22/2024 Refill [facility] MEDICINE [address] [place] [address] Kathy Mcneill MD [address] [place] [address] Social History Tobacco Use Types Packs/Day Years [...] PM EDT Office Visit [facility] OPTOMETRY [address] [place] [address] BorisShara mendez, OD [address] [place] [address] documented as of this encounter Visit Diagnoses Not on filedocumented in this encounter Additional Health Concerns Assessment Noted Time PHQ-9 Depression Total Score: 0 05/10/20 23 3:34 PM EST documented as of this encounter Care Teams Round Up Ring Hand Relationship Specialty Start Date End Date Kathy Mcneill MD [address] [place] [address] PCP - General Family Medicine 01/06/22 Shayan Douglas FNP [address] [place] [address] Nurse Practitioner Family Medicine 04/16/23 documented as of this encounter
--- OUTSIDE RECORDS SUMMARY | 2024-09-24 09:22 | XMS_ITS | Clinical Summary ---
Author Organization [employer] Address [address] [facility] 7t [place] [address] Care Team Providers Care Billet Worker Name Role Phone Kathy Mcneill MD Primary Care Provider [phone] Shayan Douglas Unavailable Unavailable Allergies Active Allergy [...] results and refer for any abnormal to obstetrician gynecologist for biopsy Cigarette nicotine dependence without complicati [...] Last saw Dr Osuna at [facility] 04/2022 Reassuring US in 10/2021, with simple cysts in L breast Continue q6 month followup Assessment & Plan (05/02/2022 12:11 PM EST): Last saw Dr Osuna at [facility] 04/2022 Reassuring US in [...] to CTA of head/neck from [facility]) aneurysm Will have pt [...] Department Care Team Description 09/22/2024 Orders Only [facility] MED & PEDS [address] [place] [address] ProviderLane MD 09/18/2024 3:15 PM EDT Office Visit [address] [address] Mihaela Ochoa, LITO Chronic migraine with aura without status migrainosus, not intractable (Primary Dx); Hypersomnia; Secondary hypertension 09/18/2024 Travel 09/18/[address] [phone] Kathy Mcneill MD No Show (Pt no show for sick on site ) 09/17/[address] [address] Angela Braswell [place] Chart Prep 09/17/[address] [address] Kathy Mcneill MD Nurse Triage 09/17/2024 Refill [facility] MEDICINE [address] [place] [address] Kathy Mcneill MD Primary hypertension 09/02/2024 Refill [facility] MEDICINE [address] [place] [address] Kathy Mcneill MD Hypothyroidism, unspecified type 08/26/2024 3:15 PM EDT Office Visit [facility] MEDICINE [address] [place] [address] Kathy Mcneill MD Tobacco abuse counseling (Primary Dx); Cigarette nicotine dependence without complication; Secondary hypertension 08/26/2024 Telephone [facility] MEDICINE [address] [place] [address] Kathy Mcneill MD Missed appt. 08/26/2024 Telephone [facility] MEDICINE [address] [place] [address] Kathy Mcneill MD No Show 07/24/2024 Population Health Risk Score [facility] () Department [address] [place] [phone] Provider, Population Health Generic 07/22/2024 Orders Only GENERIC EXTERNAL DATA DEPARTMENT Provider, Generic External Data 07/22/2024 Refill [facility] MEDICINE [address] [place] [address] Kathy Mcneill MD 07/09/2024 Orders Only [facility] External Provider, [facility] 07/06/2024 Telephone [facility] MEDICINE [address] [place] [address] Kathy Mcneill MD 07/06/2024 Refill [facility] MED[facility] [address] [place] [address] Kathy Mcneill MD Right sided sciatica 07/06/2024 Telephone [facility] MED[facility]INE [address] [place] [address] Kathy Mcneill MD from Last 3 Months [...] Visit [facility] OPTOMETRY [address] [place] [address] Boris, Shara, OD [address] [place] [address] Health Maintenance Due Date Last Done Comments [...] patient's age to complete this topic Meningococcal B Vaccine Aged Out No l onger eligible based on patient's age to complete [...] H. pylori Breath Test Negative Negative [facility] Comment:Antimicrobials, prot on pump inhibitors and bismuthpreparations are known to suppress H. pylori. Ingestingthese medications within two weeks prior to performing thebreath test may produce negative test results. A positiveresult is still clinically valid. 07/22/2024 9:10 AM EDT 07/23/2024 3:39 PM EDT us Generic External Data Provider LAB BLOOD ORDERAB LES Final Result [facility] [address] [place] [phone] * VASC US Lower Extremity Venous Duplex Bilateral (07/09/2024 1:24 PM EST) 07/09/2024 1:24 PM EST Narrative [facility] IMAGING - 07/09/2024 3:22 PM EST ? [facility] [facility] ?[address] ?[place] [address] ? Ultrasound Report ? Signed ? Patient: Andrey,Mulu ?MR#: [id number] ?? [id number] ? : 1975 ?Acct:[id number] ? Age/Sex: 49 / F ?ADM Date: 07/09/24 ? Loc: HO.US ? Attending Dr: Shirley Alexis PA-C ? Ordering Physician: Shirley Alexis PA-C ?? Date of Service: 07/09/24 ?? Procedure(s): US venous duplex LE BI ?? Accession Number(s): [id number] ? cc: Kathy Mcneill; Shirley Alexis PA-C [...] DD/ 1324 ? TD/TT: 07/09/24 1350 ? Neurology Physician Assistant: ? Procedure Note Praveenjanedejahjenifer, Image - 07/09/2024 [place] [address] Ultrasound Report Signed Patient: Mulu Balderas#: [id number] : 1975Acct:[id number] Age/Sex: 49 / FADM Date: 07/09/24 Loc: HO.US Attending Dr: Shirley Alexis PA-C Ordering Physician: Shirley Alexis PA-C Date of Service: 07/09/24 Procedure(s): US venous duplex LE BI Accession Number(s): [id number] cc: Kathy Mcneill; Shirley Alexis PA-C EXAMINATION: [...] 07/09/24 1519 DD/ 1324 TD/TT: 07/09/24 1350 Neurology Physician Assistant: us [facility] External Provider CV VASC ULAR PROCEDURES Final Result [facility] IMAGING [address] [place] [phone] * Hm Colonoscopy (02/20/2024 11:14 AM EDT) Colonoscopy Normal Normal Narrative Yue Biggs - 02/20/2024 11:14 AM EDT Recommended 10 years see external hospital admission note on 02/20/2024 Historical Provider HEALTH MAINTENANCE Edited Result - Final * HPV mRNA E6/E7 w/Reflex to HPV Genotypes 16, 18/45 (05/10/2023 4:56 PM EST) HPV nRNA E6/E7 Not Detected Not Detected [facility] Comment:Methodology: Transcr iption-Mediated AmplificationThis assay detects E6/E7 viral messenger RNA (mRNA) from 14high-risk HPV types (16,18,31,33,35,39,45,51,52,56,58,59,66,68).Cervical sources are required for HPV testing.If a vaginal source from a patient who has had atotal hysterectomy with removal of cervix wassubmitted, please contact the testing laboratoryfor alternative testing options.For additional information, please refer tohttp://education.Starfish 360/faq/RAZ636n2(This link if provided for information/educational purposes only.)THIS TEST WAS PERFORMED AT:[employer] [facility] [place] [phone] CRUZ MD HPV mRNA E6/E7 TNP [facility] HPV 16 RNA [facility] HPV 18/45 RNA [facility] 05/10/2023 4:56 PM EST 05/14/2023 8:00 AM EST Kathy Mcneill MD LAB CYTOLOGY ORDERABLES Final Result [facility] [address] [place] [address] [phone] * Pap Smear (05/10/2023 4:56 PM EST) 05/10/2023 4:56 PM EST 05/14/2023 8:00 AM EST Narrative [facility] - 05/17/2023 1:44 PM EST ----- ------- Name: Mulu Balderas ?Age/Sex: 48/F ? : 1975 Unit#: [id number] ?? Attend Dr: Kathy Mcneill ?Re05/10/23 ?Status: DEP REF ? Location: HO.HHCLNP ? Disch: ? ----- ------- SPEC : [id number] ? RECD: 05/14/23 ? STATUS: ??SOUT ? REQ NUM: [id number] ? NORTH: 05/10/231655 ? SUBM DR: Kathy [...] 66, 68) ?? HPV testing performed by [employer], [place], [place]. ??See reference laboratory ?? portion of the EMR for entire report. ?Clinical Information LMP: Menopause Previous PAP test: Unknown date/findings ? Material Received ?? ThinPrep-Cervical ----- ------- Signed (signature on file) INNA Cobb (ASCP) 05/17/23 0292 ? ----- ------- ? END OF REPORT ? Result [facility] Kathy Mcneill MD LAB CYTOLOGY ORDERABLES Final Result Performing Organization Address [facility]/ZIP Co de Phone Number [facility] [address] [place] [phone] * Hepatitis C Ab (04/08/2023 2:44 PM EST) Hepatitis C Antibody Nonreactive Nonreactive [facility] Comment:Antibodies to HCV no t detected; does not exclude early acuteHCV infection. Blood Venous blood specimen / Unknown 04/08/2023 2:44 PM EST 04/08/2023 4:15 PM EST Result [facility] Kathy Mcneill MD LAB BLOOD ORDERABLES Final Res ult Performing Organization Address [facility] Co de Phone Number [facility] [address] [place] [phone] * HIV-1/2 Antigen and Antibodies, Fourth Generation, with Reflexes (04/08/2023 2:44 PM EST) HIV AB/AG Nonreactive Nonreactive [facility] Comment:HIV-1 p24 Ag and/or HIV-1/HIV-2 Ab not detected.A test result that is nonreactive does not exclude thepossibility of exposure to or infection with HIV-1 and/orHIV-2. Nonreactive results in this assay for individualswith prior exposure to HIV-1 and/or HIV-2 may be due toantigen and antibody levels that are below the limit ofdetection of this assay.The [employer] HIV Ag/Ab Combo assay result andsupplemental assay results should be interpreted inconjunction with the patient's clinical presentation,history and other laboratory results. If the results areinconsistent with clinical evidence, additional testing issuggested to confirm the result. Blood Venous blood specimen / Unknown 04/08/2023 2:44 PM EST 04/08/2023 4:15 PM EST Result [facility] Kathy Mcneill MD LAB BLOOD ORDERABLES Final Res ult [facility] [address] [place], [place] [phone] * (ABNORMAL) LIPID PANEL, STANDARD (01/18/2021 [...] ?? Johnnie DELGADO et al. LAURENT. 2013;310(19): 2670-2889 ?? (http://education.GeoIQ.afterBOT/faq/UPV601) Non-HDL Cholesterol 71 <130 mg/dL (calc) [facility] Comment: For patients with diabetes plus 1 major ASCVD risk ?? factor, treating to a non-HDL-C goal of <100 mg/dL ?? (LDL-C of <70 mg/dL) is considered a therapeutic ?? option. Triglycerides 110 <150 mg/dL [facility] 01/18/2021 2:59 PM EDT us Dayan Diez CERTIFIED NURSING ASSISTANT LAB BLOOD ORDERABLES Final Res ult [facility] [address] from Last 3 Months or Most Recently Relevant to Health Maintenance Insurance [facility] C[facility] Care Teams Billet Worker Relationship Specialty Start Date End Date Kathy Mcneill MD [address] [place] [address] PCP - General Family Medicine 01/06/22 Shayan Douglas FNP [address] [place] [address] Nurse Practitioner Family Medicine 04/16/23
--- OUTSIDE RECORDS SUMMARY | 2024-09-24 09:22 | XMS_ITS | Encounter Summary ---
Author Organization [employer] Address [address] [facility] 7t [place] [address] Care Team Providers Care Quality Improvement Consultant Name Role Phone Kathy Mcneill MD Primary Care Provider [phone] Shayan Douglas Unavailable Unavailable Reason for Visit * Reason Comments Med Refill Encounter Details Date Type Department Care Team ([facility] st Contact Info) Description 12/28/2023 Refill [facility] MED & PEDS [address] [place] [address] Kathy Mcneill MD [address] [place] [address] Migraine without aura and without status migrainosus, [...] Description 12/21/2024 1:30 PM EDT Office Visit [facility] OPTOMETRY [address] [place] [address] Shara Escalante, OD [address] [place] [address] documented as of this encounter Visit Diagnoses Diagnosis Migraine without aura and without status migrainosus, not intractable documented in this encounter Additional Health Concerns Assessment Noted Time PHQ-9 Depression Total Score: 0 05/10/20 23 3:34 PM EST documented as of this encounter Care Teams Quality Improvement Consultant Relationship Specialty Start Date End Date Kathy Mcneill MD [address] [place] [address] PCP - General Family Medicine 01/06/22 Shayan Douglas FNP [address] [place] [address] Nurse Practitioner Family Medicine 04/16/23 documented as of this encounter
--- OUTSIDE RECORDS SUMMARY | 2024-09-24 09:22 | XMS_ITS | Encounter Summary ---
Author Organization [employer] Address [address] [facility] 7t [place] [address] Care Team Providers Care Credit Collections Manager Name Role Phone Kathy Mcneill MD Primary Care Provider [phone] Shayan Douglas Unavailable Unavailable Encounter Details Date Type Department Care Team ([facility] st Contact Info) Description 05/15/2023 Orders Only [facility] MEDICINE [address] [place], [place] [phone] Kathy Mcneill MD [address] [place] [address] Social History Tobacco Use Types Packs/Day Years [...] Description 12/21/2024 1:30 PM EDT Office Visit [facility] OPTOMETRY [address] [place] [address] Boris, Shara, OD [address] [place] [address] documented as of this encounter Procedures Procedure Name Priority Date/Time Associated Diagnosis Comments US VENOUS DUPLEX LE LT Routine 05/20/2023 1:16 PM EST documented in this encounter Results * US VENOUS DUPLEX LE LT (05/20/2023 1:16 PM EST) Anatomical Region Laterality Modality Abdomen Ultrasound 05/20/2023 1:16 PM EST Narrative 05/20/2023 1:43 PM EST ? [facility] ?[address] ? [place] [address] ? Ultrasound Report ? Signed ? Patient: Andrey,Mulu ?MR#: [id number] ?? [id number] ? : 1975 ?Acct:[id number] ? Age/Sex: 48 / F ?ADM Date: 05/20/ ? Loc: HO.HMGCX ? Attending Dr: Kathy Mcneill MD ? Ordering Physician: Kathy Mcneill ?? Date of Service: 05/20/23 ?? Procedure(s): US venous duplex LE LT ?? Accession Number(s): [id number] ? cc: Kathy Mcneill ? EXAMINATION: ? [...] 1339 ? DD/ 1316 ? TD/TT: ? Obstetrics Nurse: ? Procedure Note Ana, Image - 05/20/2023 [facility] Adult Primary Care [address] [place] [address] [place] [address] Ultrasound Report Signed Patient: Mulu Balderas#: [id number] : 1975Acct:[id number] Age/Sex: 48 / FADM Date: 05/20/23 [facility]: Kathy Mcneill MD Ordering Physician: Kathy Mcneill Date of Service: 05/20/23 Procedure(s): US venous duplex LE Accession Number(s): [id number] cc: Kathy Mcneill EXAMINATION: US VENOUS ULTRASOUND [...] in OV> 05/20/23 1339 DD/ 1316 TD/TT: Obstetrics Nurse: us Kathy Mcneill MD IMG US PROCEDURES Final Result documented in this encounter Visit Diagnoses Not on filedocumented in this encounter Additional Health Concerns Assessment Noted Time PHQ-9 Depression Total Score: 0 05/10/20 23 3:34 PM EST documented as of this encounter Care Teams Credit Collections Manager Relationship Specialty Start Date End Date Kathy Mcneill MD [address] [place] [address] PCP - General Family Medicine 01/06/22 Shayan Douglas FNP [address] [place] [address] Nurse Practitioner Family Medicine 04/16/23 documented as of this encounter
--- OUTSIDE RECORDS SUMMARY | 2024-09-24 09:22 | XMS_ITS | Encounter Summary ---
Author Organization [employer] Address [address] [facility] 7t [place] [address] Care Team Providers Care Process Improvement Manager Name Role Phone Kathy Mcneill MD Primary Care Provider [phone] Shayan Douglas Unavailable Unavailable Reason for Visit * Reason Comments Med Refill Encounter Details Date Type Department Care Team (Late st Contact Info) Description 06/17/2024 Refill [facility] MEDICINE [address] [place], [place] [phone] Kathy Mcneill MD [address] [place], [place] [phone] Smoking Social History Tobacco Use Types Packs/Day [...] 12/21/2024 1:30 PM EDT Office Visit [facility] OPTOMETRY [address] [place] [address] BorisShara mendez, OD [address] [place] [address] documented as of this encounter Visit Diagnoses Diagnosis Smoking Tobacco use disorder documented in this encounter Additional Health Concerns Assessment Noted Time PHQ-9 Depression Total Score: 0 05/10/20 23 3:34 PM EST documented as of this encounter Care Teams Process Improvement Manager Relationship Specialty Start Date End Date Kathy Mcneill MD [address] [place] [address] PCP - General Family Medicine 01/06/22 Shayan Douglas FNP [address] [place] [address] Nurse Practitioner Family Medicine 04/16/23 documented as of this encounter
--- OUTSIDE RECORDS SUMMARY | 2024-09-24 09:22 | XMS_ITS | Encounter Summary ---
Author Organization [employer] Address [address] [facility] 7t [place] [address] Care Team Providers Care Disc Pad Plate Filler Name Role Phone Kathy Mcneill MD Primary Care Provider [phone] Shayan Douglas Unavailable Unavailable Reason for Visit * Reason Comments Med Refill Encounter Details Date Type Department Care Team ([facility] st Contact Info) Description 05/15/2024 Refill [facility] MED & PEDS [address] [place] [address] Kathy Mcneill MD [address] [place] [address] Migraine without aura and without status migrainosus, [...] 12/21/2024 1:30 PM EDT Office Visit [facility] OPTOMETRY [address] [place] [address] Shara Escalante, OD [address] [place] [address] documented as of this encounter Visit Diagnoses Diagnosis Migraine without aura and without status migrainosus, not intractable documented in this encounter Additional Health Concerns Assessment Noted Time PHQ-9 Depression Total Score: 0 05/10/20 23 3:34 PM EST documented as of this encounter Care Teams Disc Pad Plate Filler Relationship Specialty Start Date End Date Kathy Mcneill MD [address] [place] [address] PCP - General Family Medicine 01/06/22 Shayan Douglas FNP [address] [place] [address] Nurse Practitioner Family Medicine 04/16/23 documented as of this encounter
== END 2024-09-24 08:56 | disposition home or self-care (01) ==
LOC: HO.MAMMO 08:55
PROVIDERS: PCP General Practice; Visit Provider Surgery
DX: N64.4 Mastodynia (principal)
CPT/HCPCS: 76642; 77062; 77066

== ENCOUNTER → 2024-09-24 09:00 | Outpatient (BNV) | payer MEDICAID, SELFPAY | PROVIDERS: PCP General Practice; Visit Provider Internal Medicine | DX: R92.323 Mammographic fibroglandular density, bilateral breasts (principal); N64.52 Nipple discharge | CPT/HCPCS: 76642; 77062; 77066 ==

== ENCOUNTER 2024-12-29 13:45 | Outpatient (REF) | payer MEDICAID, SELFPAY ==
--- OUTSIDE RECORDS SUMMARY | 2024-12-29 15:03 | XMS_ITS | Clinical Summary ---
Author Organization [facility] Address [address] [place], [place] [phone] Phone Care Team Providers Care Paperhanger Pipe Name Role Phone Dayan Diez STEAM TABLE ASSOCIATE Primary Care Provider Unav ailable Social History Tobacco Use Types Packs/Day Years Used Date Smoking Tobacco: Never Assessed Comments Unknown Sex and Gender Information Value Date Recorded Sex Assigned at Not on file Legal Sex Female 2:15 PM EST Gender Identity Not on file Sexual Orientation Not on file Plan of Treatment Not on file Medical Devices Not on file Insurance [facility] C[facility] C[facility] C[facility] C[facility] C[facility] C3 ACO Care Teams Paperhanger Pipe Relationship Specialty Start Date End Date Dayan Diez NP PCP - General Family Medicine 03/27/21 Additional Source Comments The information contained in this document represents components of the legal health record. It is not the complete legal health record.[facility]
--- OUTSIDE RECORDS SUMMARY | 2024-12-29 15:03 | XMS_ITS | Encounter Summary ---
Author Organization [employer] Address [address] [facility] 7[address] [place] [address] Care Team Providers Care Hydroelectric Production Manager Name Role Phone Kathy Mcneill MD Primary Care Provider [phone] Shayan Douglas Unavailable Unavailable Reason for Visit * Reason Comments Med Refill Encounter Details Date Type Department Care Team ([facility] st Contact Info) Description 12/28/2023 Refill [facility] MED & PEDS [address] [place], [place] [phone] Kathy Mcneill MD [address] [place] [address] Migraine without aura and without status migrainosus, [...] Care Team (Late st Contact Info) Description 12/30/2024 3:15 PM EDT Office Visit [facility] MEDICINE [address] [place] [address] Kathy Mcneill MD [address] [place] [phone] documented as of this encounter Visit Diagnoses Diagnosis Migraine without aura and without status migrainosus, not intractable documented in this encounter Additional Health Concerns Assessment Noted Time PHQ-9 Depression Total Score: 0 05/10/20 3:34 PM EST documented as of this encounter Care Teams Hydroelectric Production Manager Relationship Specialty Start Date End Date Kathy Mcneill MD [address] [place] [address] PCP - General Family Medicine 01/06/22 Shayan Douglas FNP [address] [place] [address] Nurse Practitioner Family Medicine 04/16/23 documented as of this encounter
[2024-12-29 16:22] LABS: MANUAL DIFF FLAG NO
[2024-12-29 16:35] LABS: Hematocrit 41.2 % (37.0-47.0); Hemoglobin 13.7 g/dl (12.0-16.0); Imm Gran Abs Auto 0.03 X10*3/uL (0.00-0.03); Imm Gran Pct Auto 0.4 % (0.0-0.4); Lymphocytes Absolute Auto 2.7 X10*3/uL (1.2-4.9); Mean Corpuscular HGB Conc 33.3 g/dl (31.0-35.0); Mean Corpuscular Hemoglobin 31.1 pg (27.0-33.0); Mean Corpuscular Volume 93.4 fL (80.0-98.0); NRBC Abs Auto 0.000 X10*3/uL (0.0-0.012); NRBC Pct Auto 0.0 /100WBC (0.0-0.2); Platelet Count 181 X10*3/uL (160-400); Red Blood Count 4.41 X10*6/uL (4.20-5.50); White Blood Count 7.7 X10*3/uL (4.8-10.8)
[2024-12-29 16:50] LABS: Alanine Aminotransferase 21 U/L (0-31); Albumin Level 4.4 g/dL (3.5-5.0); Alkaline Phosphatase 87 U/L (39-117); Anion Gap 10 (12-20); Aspartate Amino Transferase 25 U/L (5-31); Blood Urea Nitrogen 11 mg/dL (9-16); Calcium 9.7 mg/dL (8.4-10.2); Carbon Dioxide 28 mmol/L (22-29); Chloride 110 mmol/L (96-108); Estimated Glomerular Filt Rate > 60; Iron 112 mcg/dL (30-160); Percent Iron Saturation 43 % (15-50); Potassium 4.2 mmol/L (3.3-5.1); Sodium 144 mmol/L (135-145); Total Iron Binding Capacity 259 mcg/dL (228-428); Total Protein 7.0 g/dL (6.5-8.0); Unsaturated Iron Binding 147 ug/dL
[2024-12-29 17:16] LABS: Folate 9.8 ng/mL (> or = 4.0); Vitamin B12 184 pg/mL (200-900)
== END 2024-12-29 13:46 | disposition home or self-care (01) ==
LOC: HO.HHCL 13:45
PROVIDERS: PCP General Practice
DX: G47.10 Hypersomnia, unspecified (principal)
CPT/HCPCS: 36415; 80053; 82306; 82607; 82746; 83540; 84443; 85025

== ENCOUNTER 2025-01-20 11:49 | Emergency (ER) | payer MEDICAID, SELFPAY ==
--- NOTE | ~2025-01-20 | XR_ITS ---
EXAMINATION: XR CHEST CLINICAL INFORMATION: sob COMPARISON: May 22, 2023 TECHNIQUE: 2 views of the chest were obtained. FINDINGS: Hyperinflated lungs. Bilateral apical lung scarring. Pulmonary reticular pattern. No consolidation, pleural effusion or pneumothorax. Cardiac mediastinal silhouette size is normal. Multilevel spondylosis and kyphotic deformity thoracic spine. XR/XR chest 2V IMPRESSION: Consider COPD emphysematous type changes without acute airspace disease. Electronically signed by: Kit Eller MD 01/20/2025 12:34 PM EDT
[2025-01-20 11:52] VITALS: BP 155/67; PULSE 90; RESP 18; TEMP 37.1; O2SAT 98; BMI 22.9
--- NOTE | 2025-01-20 11:55 | ED.URI ---
HPI - URI/Sore Throat General Chief Complaint: Upper Respiratory Symptoms Stated Complaint: SOB, headache Time Seen by Provider: 01/20/25 15:27 Source: patient Mode of arrival: ambulatory Limitations: no limitations History of Present Illness ED Provider: CLARITZA AN PA-C HPI Narrative: 49-year-old female with past medical history significant for gout, HTN, hypothyroidism, breast cancer, NSTEMI, brain aneurysm with surgery 05/17/21, stroke with persistent left-sided deficits presents to the ED today for evaluation of sore throat, headache and shortness of breath x 2 days. Admits to recent COVID exposures at work. She reports taking for COVID tests at home that returned negative. Denies fever, chills, hemoptysis, chest pain, lower extremity pain/swelling, nausea or vomiting, abdominal pain. Related Data Home Medications ?Medication ?Instructions ?Recorded ?Confirmed levothyroxine 125 mcg tablet 125 mcg PO DAILY 07/25/20 08/12/24 atorvastatin 40 mg tablet 40 mg PO BEDTIME 01/02/21 08/12/24 mirtazapine 30 mg tablet 30 mg PO DAILY 01/02/21 08/12/24 topiramate 100 mg tablet 100 mg PO BEDTIME 05/31/21 08/12/24 gabapentin 100 mg capsule 100 mg PO DAILY PRN Pain 07/26/21 08/12/24 bupropion HCl 150 mg tablet,12 hr 150 mg PO DAILY 04/25/22 08/12/24 sustained-release hydroxyzine pamoate 25 mg capsule 25 mg PO BEDTIME PRN insomnia 04/25/22 08/12/24 amlodipine 10 mg tablet 10 mg PO DAILY blood pressure 12/14/22 08/12/24 Previous Rx's ?Medication ?Instructions ?Recorded valsartan 160 mg tablet 160 mg PO DAILY #90 tabs 12/04/23 pantoprazole 20 mg tablet,delayed 20 mg PO BID 2 weeks #28 tabs 05/04/24 release bismuth subsalicylate 262 mg 2 tab PO QID 10 days #80 tabs 06/11/24 chewable tablet metronidazole 500 mg tablet 500 mg PO TID 10 days #30 tabs 06/11/24 ondansetron 4 mg disintegrating 4 mg PO Q8H PRN nausea and 06/11/24 tablet vomiting #30 tabs pantoprazole 20 mg tablet,delayed 20 mg PO BID 10 days #20 tabs 06/11/24 release tetracycline 500 mg capsule 500 mg PO Q6H 10 days #40 caps 06/11/24 aspirin 81 mg tablet,delayed 81 mg PO DAILY #90 tabs 06/15/24 release metoprolol succinate 100 mg 100 mg PO BID #180 tabs 07/14/24 tablet,extended release 24 hr azithromycin 250 mg tablet See Rx Instructions PO .COMPLEX #6 01/20/25 tabs prednisone 20 mg tablet 40 mg (2 x 20 mg) PO DAILY 5 days 01/20/25 #10 tabs Allergies Allergy/AdvReac Type Severity Reaction Status Date / Time Gadolinium-Containing Allergy Severe Rash Verified 01/20/25 11:54 Contrast Medi Iodinated Contrast Media (IV Allergy Severe Rash Verified 01/20/25 11:54 Contrast Dye) Review of Systems Review of Systems: Yes all other systems are reviewed and are negative PMFSH Past Medical History Attestation statement: The following information was validated with the patient. Source: old records reviewed and nursing notes reviewed Medical History Fibromuscular dysplasia History of COVID-19 Sleep apnea History of radiation therapy Stroke Aneurysm NSTEMI (non-ST elevated myocardial infarction) Gout Hypertension Hypothyroidism Ductal carcinoma in situ (DCIS) of right breast Surgical History History of lumpectomy of left breast (02/12/24) History of removal of cyst History of breast lump/mass excision (07/09/22) Status post cardiac catheterization History of right breast biopsy (09/08/19) History of endometrial ablation (2010) History of bilateral tubal ligation (2003) History of lumpectomy of right breast (10/07/19) Family History Family History Daughter Thyroid cancer Paternal Grandmother Breast cancer Thyroid cancer Diabetes Sister Diabetes HTN (hypertension) Sister HTN (hypertension) Sister HTN (hypertension) Sister HTN (hypertension) Sister HTN (hypertension) Father Brain tumor Mother Heart attack Social History Social History Household Members: Other Household Members Other:: daughter Housing: Apartment Are you a primary health care aide to a significant other at home: No Do you presently have visiting nurse or other home services: No Alcohol intake: former Year quit: 2020 Patient Tobacco Use Status: Former Tobacco user Tobacco use type: Cigarette Years Smoked: 10 +/- Advance Directives: No Advance Directives Information Provided: Yes Do you have a plan to hurt others: No Plan service: No Current occupational status: employed Current occupation: rt handed Physical Exam Vital Signs: Vital Signs: Last Vital Signs Temp 97.8 F 01/20/25 15:19 Pulse 104 H 01/20/25 15:19 Resp 20 01/20/25 15:19 BP 132/66 01/20/25 15:19 Pulse Ox 95 01/20/25 15:19 O2 Del Method Room Air 01/20/25 15:19 BMI result Body Mass Index 22.9 Afebrile General: Well appearing, in no acute distress. Skin: Warm, dry, intact. No rashes or lesions. Head: Normocephalic, atraumatic. EENT: Hearing is intact b/l. Conjunctiva clear. Sclera is anicteric. PERRLA. EOM intact. Moist mucous membranes.? Neck: Supple without LAD Cardiac: Chest wall symmetric. RRR Lungs: Normal respiratory effort without accessory muscle use. No tripoding. Bronchospastic cough noted. CTA bilaterally. Back: No midline spinous or paraspinal tenderness. No step off deformity. Ext: Upper and lower extremities atraumatic, without tenderness, deformity, swelling or erythema Neuro: AOx3. Normal speech. Ambulating with steady gait. Course Course Course Narrative: Negative COVID, flu, strep throat. Chest x-ray negative for pneumonia. Concern for COPD like changes. Discussed work up results w/ patient, reports remote history of tobacco use. Advised w/u with PCP/ manager actuarial. Vitals are stable, exam benign. will discharge her with prednisone + azithromycin. patient agreeable. Patient has remained stable throughout ED visit today. Discussed worrisome signs and symptoms and when to return to the ED. All questions answered at this time. Patient is agreeable with disposition and stable for discharge. Medical Decision Making Medical Decision Making MDM Narrative: 49-year-old female with past medical history significant for gout, HTN, hypothyroidism, breast cancer, NSTEMI, brain aneurysm with surgery 05/17/21, stroke with persistent left-sided deficits presents to the ED today for evaluation of sore throat, headache and shortness of breath x 2 days. afebrile, not hypoxic. well appearing. No tripoding. Bronchospastic cough. Lungs clear to auscultation bilaterally. RRR. Differential diagnosis includes viral syndrome, bronchitis, pneumonia, strep throat. Unlikely mono, CABLE [employer]ER, retropharyngeal abscess, epiglottitis, PE, ACS. Plan for viral/strep swabs, cxr, re-evaluation. Differential Diagnosis Differential Diagnoses: The differential diagnosis associated with the presentation includes as above. Admission/Observation not indicated. Lab Data MDM Lab Attestation statement: I reviewed the patient's lab results. as above. Labs: Lab Results 01/20/25 01/20/25 Range/Units 12:25 12:26 COVID-19 (SANDIE) Negative (Negative) COVID-19 Clin Com See Note Influenza Type A (KELSI) Negative (Negative) Influenza Type B (KELSI) Negative (Negative) Influenza A & B Note See Note S. pyogenes GrpA KELSI Negative (Negative) Independent Interpretation I performed an independent interpretation of an: Plain X-Ray Interpretation: Chest x-ray without infiltrate or consolidation Radiology Impression Discussion of test interpretation with radiology: I have reviewed the radiologist's reading. Radiologist Impression: Date of Service: 01/20/25 Procedure(s): XR chest 2V Accession Number(s): [id number] cc: Wong Mcneill Rainey PA~ Reason for Exam: sob EXAMINATION: XR CHEST CLINICAL INFORMATION: sob COMPARISON: May 22, 2023 TECHNIQUE: 2 views of the chest were obtained. FINDINGS: Hyperinflated lungs. Bilateral apical lung scarring. Pulmonary reticular pattern. No consolidation, pleural effusion or pneumothorax. Cardiac mediastinal silhouette size is normal. Multilevel spondylosis and kyphotic deformity thoracic spine. XR/XR chest 2V IMPRESSION: Consider COPD emphysematous type changes without acute airspace disease. Electronically signed by: Kit Eller MD 01/20/2025 12:34 PM EDT External Record Review External record reviewed: Inpatient record Prescription Management I considered prescription management with: Antibiotic (azithromycin) and Other (prednisone) Chronic Conditions Patient?s care impacted by: Other (copd) Social Determinants Patient?s care significantly limited by Social Determinants of Health including: Other Social Determinant of Health Critical Care Time Critical Care Time Critical Care Time: No Discharge Plan Discharge Clinical Impression: Upper respiratory infection Patient Disposition: Home, Self-Care Instructions: Upper Respiratory Infection (ED), COPD (Chronic Obstructive Pulmonary Disease) (ED) Additional Instructions: You were evaluated in the ED today for upper respiratory symptoms You tested negative for COVID, flu, strep throat. Your chest x-ray does not demonstrate pneumonia. As discussed, there are changes on your chest x-ray consistent with COPD. See home care instructions. I am giving you a referral to a manager actuarial to follow up with. I am sending a short course of prednisone to your pharmacy. Take this over the next 5 days. I am also starting you on an antibiotic. Take this over the next 5 days. Return with any new or worsening symptoms. In the case of an emergency call 911. Prescriptions: New prednisone 20 mg tablet 40 mg PO DAILY 5 Days Qty: 10 0RF azithromycin 250 mg tablet See Rx Instructions PO .COMPLEX Qty: 6 0RF Rx Instructions: For 250 mg dose pack: take 500 mg today (day 1), then 250 mg for 4 days (days 2-5) No Action amlodipine 10 mg tablet 10 mg PO DAILY pantoprazole 20 mg tablet,delayed release (DR/EC) 20 mg PO BID 14 Days Qty: 28 0RF bismuth subsalicylate 262 mg tablet,chewable 2 tab PO QID 10 Days Qty: 80 0RF metronidazole 500 mg tablet 500 mg PO TID 10 Days Qty: 30 0RF pantoprazole 20 mg tablet,delayed release (DR/EC) 20 mg PO BID 10 Days Qty: 20 0RF tetracycline 500 mg capsule 500 mg PO Q6H 10 Days Qty: 40 0RF ondansetron 4 mg tablet,disintegrating 4 mg PO Q8H PRN (Reason: nausea and vomiting) Qty: 30 0RF aspirin 81 mg tablet,delayed release (DR/EC) 81 mg PO DAILY Qty: 90 3RF metoprolol succinate 100 mg tablet extended release 24 hr 100 mg PO BID Qty: 180 3RF levothyroxine 125 mcg Tablet 125 mcg PO DAILY gabapentin 100 mg Capsule 100 mg PO DAILY PRN (Reason: Pain) atorvastatin 40 mg tablet 40 mg PO BEDTIME mirtazapine 30 mg tablet 30 mg PO DAILY topiramate 100 mg tablet 100 mg PO BEDTIME hydroxyzine pamoate 25 mg capsule 25 mg PO BEDTIME PRN (Reason: insomnia) bupropion HCl 150 mg tablet sustained-release 12 hr 150 mg PO DAILY valsartan 160 mg tablet 160 mg PO DAILY Qty: 90 3RF Referrals: Kathy Mcneill MD [Primary Care Provider, Internal Medicine] Discharge Date/Time: 01/20/25 15:43 Print Language: Japanese
[2025-01-20 12:43] LABS: IDNOW Serial# 08D9AD1C; Strep A Nucleic Acid Negative (Negative)
[2025-01-20 12:46] LABS: COVID-19 Test Negative (Negative); IDNOW Serial# 58CA691E
[2025-01-20 12:50] LABS: IDNOW Serial# 55D5AD1C; Influenza B2 Negative (Negative)
[2025-01-20 15:19] VITALS: BP 132/66; PULSE 104; RESP 20; TEMP 36.6; O2SAT 95
[2025-01-20 15:42] VITALS: BP 132/66; PULSE 104; RESP 20; TEMP 36.6; O2SAT 95
--- OUTSIDE RECORDS SUMMARY | 2025-01-20 18:25 | XMS_ITS | Encounter Summary ---
Author Organization [employer] Address [address] [place] [address] Care Team Providers Care Data Control Clerk Name Role Phone Kathy Mcneill MD Primary Care Provider [phone] Shayan Douglas Unavailable Unavailable Reason for Visit * Reason Comments Med Refill Encounter Details Date Type Department Care Team ([facility] st Contact Info) Description 06/17/2024 Refill [facility] [address] [place], [place] [phone] Kathy Mcneill MD [address] [place], [place] [phone] Smoking Social History Tobacco Use Types Packs/Day [...] Care Team (Late st Contact Info) Description 02/01/2025 2:30 PM EDT Clinical Support [facility] [address] [place] [address] documented as of this encounter Visit Diagnoses Diagnosis Smoking Tobacco use disorder documented in this encounter Additional Health Concerns Assessment Noted Time PHQ-9 Depression Total Score: 0 05/10/20 23 3:34 PM EST documented as of this encounter Care Teams Data Control Clerk Relationship Specialty Start Date End Date Kathy Mcnelil MD [address] [place] [id number] PCP - General Family Medicine 01/06/22 Shayan Douglas FNP [address] [place] [id number] Nurse Practitioner Family Medicine 04/16/23 documented as of this encounter
--- OUTSIDE RECORDS SUMMARY | 2025-01-20 18:25 | XMS_ITS | Encounter Summary ---
Author Organization [employer] Address [address] [facility] 7t [place] [address] Care Team Providers Care Sports Management Internship Name Role Phone Kathy Mcneill MD Primary Care Provider [phone] Shayan Douglas Unavailable Unavailable Encounter Details Date Type Department Care Team (Late st Contact Info) Description 09/22/2024 Orders Only [facility] [address] [place], [place] [phone] ProviderLane MD Social History Tobacco Use Types Packs/Day Years [...] your housing situation today? I have pamela sing 08/14/[address] you li [...] Description 02/01/2025 2:30 PM EDT Clinical Support [address] [address] documented as of this encounter Procedures Procedure Name Priority Date/Time Associated Diagnosis Comments BI US BREAST LIMITED BILATERAL Routine 09/24/2024 9:30 AM EDT BI MAMMOGRAM DIAGNOSTIC TOMOSYNTHESIS BILATERAL Routine 09/24/2024 9:00 AM EDT HM COLONOSCOPY Routine 02/20/2024 11:14 AM EDT documented in this encounter Results * BI US Breast Limited Bilateral (09/24/2024 9:30 AM EDT) Anatomical Region Laterality Modality Breast Bilateral Ultrasound 09/24/2024 9:30 AM EDT Narrative 09/24/2024 10:17 AM EDT [facility] [address] [place] [address] Ultrasound Report Signed Patient: Mulu Balderas MR#: [id number] : 1975 Acct:[id number] Age/Sex: 49 / F ADM Date: 09/24/24 Loc: CHEOO Attending Dr: Tony Osuna MD Ordering Physician: Tony Osuna MD Date of Service: 09/24/24 Procedure(s): US breast BI limited mamm only Accession Number(s): [id number] cc: Kathy Mcneill; Tony Osuna MD EXAMINATION: MM DIAGNOSTIC DIGITAL BREAST TOMOSYNTHESIS, BILATERAL Bilateral Limited ultrasound. CLINICAL INFORMATION: Bilateral areas of pain. Patient has a history of right breast cancer status post lumpectomy. Patient has a history of left breast surgery. Patient has bilateral white nipple discharge. COMPARISON: Mammography: Comparison is made with relevant prior exams. TECHNIQUE: Digital breast mammography with tomosynthesis is performed in both the craniocaudal and mediolateral oblique views along with computer-aided detection (CAD). FINDINGS: The breasts are heterogeneously dense, which may obscure small masses (ACR BI-RADS breast composition Category c). Bilateral circumscribed oval masses which wax and wane consistent with benign fibrocystic changes. Some which were demonstrated to be simple cyst on prior ultrasounds. Right: Postoperative changes are stable. Triangular marker at the site of the patient's pain in the central inner breast without underlying abnormality. No suspicious calcifications masses or other abnormal findings. Targeted color Doppler ultrasound scanning in the retroareolar region and from 2-4 o'clock demonstrates normal fibronodular breast tissue. There is no sonographic abnormality. Left: [place] marker in the upper outer breast posterior depth and central inner breast anterior depth without underlying abnormality. BB marker in the lower inner breast at site of palpable lump without abnormality. Marker clip. Postsurgical changes. No suspicious masses calcifications or other abnormal findings. Targeted color Doppler ultrasound scanning in the left axilla upper outer quadrant retroareolar region demonstrates normal fibroglandular breast tissue. There is no sonographic abnormal findings. Results are provided to the patient at time of visit by the technologist. US/US breast BI limited mamm only IMPRESSION: No mammographic or sonographic abnormalities to account for the patient's bilateral retroareolar nipple discharge bilateral areas of patient's pain and left palpable lumps. Recommend clinical evaluation follow-up. ASSESSMENT: BI-RADS BI-RADS 2 - Benign Findings RECOMMENDATION: 1 year F/U This patient's information was entered into a reminder system with a target due date for their next mammogram. Electronically signed by: Tasha Persaud DO 09/24/2024 10:14 AM EDT Dictated By: Tasha Persaud DO Signed By: <Electronically signed by Tasha Persaud DO in OV> 09/24/24 1014 DD/ 0930 TD/TT: 09/24/24 1007 [employer]: Procedure Note Donotuseinterpreter, Image - 09/28/2024 [facility] [address] [place] [address] Ultrasound Report Signed Patient: Meche Balderas#: [id number] : 1975Acct:[id number] Age/Sex: 49 / FADM Date: 09/24/24 Loc: HO.MAMMO Attending Dr: Tony Osuna MD Ordering Physician: Tony Osuna MD Date of Service: 09/24/24 Procedure(s): US breast BI limited mamm only Accession Number(s): [id number] cc: Kathy Mcneill; Tony Osuna MD EXAMINATION: MM DIAGNOSTIC DIGITAL BREAST TOMOSYNTHESIS, BILATERAL Bilateral Limited ultrasound. CLINICAL INFORMATION: Bilateral areas of pain. Patient has a history of right breast cancer status post lumpectomy. Patient has a history of left breast surgery. Patient has bilateral white nipple discharge. COMPARISON: Mammography: Comparison is made with relevant prior exams. TECHNIQUE: Digital breast mammography with tomosynthesis is performed in both the craniocaudal and mediolateral oblique views along with computer-aided detection (CAD). FINDINGS: The breasts are heterogeneously dense, which may obscure small masses (ACR BI-RADS breast composition Category c). Bilateral circumscribed oval masses which wax and wane consistent with benign fibrocystic changes. Some which were demonstrated to be simple cyst on prior ultrasounds. Right: Postoperative changes are stable. Triangular marker at the site of the patient's pain in the central inner breast without underlying abnormality. No suspicious calcifications masses or other abnormal findings. Targeted color Doppler ultrasound scanning in the retroareolar region and from 2-4 o'clock demonstrates normal fibronodular breast tissue. There is no sonographic abnormality. Left: [place] marker in the upper outer breast posterior depth and central inner breast anterior depth without underlying abnormality. BB marker in the lower inner breast at site of palpable lump without abnormality. Marker clip. Postsurgical changes. No suspicious masses calcifications or other abnormal findings. Targeted color Doppler ultrasound scanning in the left axilla upper outer quadrant retroareolar region demonstrates normal fibroglandular breast tissue. There is no sonographic abnormal findings. Results are provided to the patient at time of visit by the technologist. US/US breast BI limited mamm only IMPRESSION: No mammographic or sonographic abnormalities to account for the patient's bilateral retroareolar nipple discharge bilateral areas of patient's pain and left palpable lumps. Recommend clinical evaluation follow-up. ASSESSMENT: BI-RADS BI-RADS 2 - Benign Findings RECOMMENDATION: 1 year F/U This patient's information was entered into a reminder system with a target due date for their next mammogram. Electronically signed by: Tasha Persaud DO 09/24/2024 10:14 AM EDT Dictated By: Tasha Persaud DO Signed By: <Electronically signed by Tasha Persaud DO in OV> 09/24/24 1014 DD/ 0930 TD/TT: 09/24/24 1007 [employer]: [facility] External Provider IMG US PROCEDURES Edited Result - Final * BI Mammogram Diagnostic Tomosynthesis Bilateral (09/24/2024 9:00 AM EDT) Anatomical Region Laterality Modality Breast Bilateral Mammography 09/24/2024 9:00 AM EDT Narrative 09/24/2024 10:17 AM EDT [address] [place], [place] [address] Mammography Report Signed Patient: Mulu Balderas MR#: [id number] : 1975 Acct:[id number] Age/Sex: 49 / F ADM Date: 09/24/24 Loc: ALOK Attending Dr: Tony Osuna MD Ordering Physician: Tony Osuna MD Results: 2Beni gn Findings Date of Service: 09/24/24 Follow Up: 1 Year From Orig inal Mammogram Procedure(s): MM tomosynthesis diagnostic BI Accession Number(s): [id number] cc: Kathy Mcneill; Tony Osuna MD EXAMINATION: MM DIAGNOSTIC DIGITAL BREAST TOMOSYNTHESIS, BILATERAL Bilateral Limited ultrasound. CLINICAL INFORMATION: Bilateral areas of pain. Patient has a history of right breast cancer status post lumpectomy. Patient has a history of left breast surgery. Patient has bilateral white nipple discharge. COMPARISON: Mammography: Comparison is made with relevant prior exams. TECHNIQUE: Digital breast mammography with tomosynthesis is performed in both the craniocaudal and mediolateral oblique views along with computer-aided detection (CAD). FINDINGS: The breasts are heterogeneously dense, which may obscure small masses (ACR BI-RADS breast composition Category c). Bilateral circumscribed oval masses which wax and wane consistent with benign fibrocystic changes. Some which were demonstrated to be simple cyst on prior ultrasounds. Right: Postoperative changes are stable. Triangular marker at the site of the patient's pain in the central inner breast without underlying abnormality. No suspicious calcifications masses or other abnormal findings. Targeted color Doppler ultrasound scanning in the retroareolar region and from 2-4 o'clock demonstrates normal fibronodular breast tissue. There is no sonographic abnormality. Left: [place] marker in the upper outer breast posterior depth and central inner breast anterior depth without underlying abnormality. BB marker in the lower inner breast at site of palpable lump without abnormality. Marker clip. Postsurgical changes. No suspicious masses calcifications or other abnormal findings. Targeted color Doppler ultrasound scanning in the left axilla upper outer quadrant retroareolar region demonstrates normal fibroglandular breast tissue. There is no sonographic abnormal findings. Results are provided to the patient at time of visit by the technologist. MM/MM tomosynthesis diagnostic BI IMPRESSION: No mammographic or sonographic abnormalities to account for the patient's bilateral retroareolar nipple discharge bilateral areas of patient's pain and left palpable lumps. Recommend clinical evaluation follow-up. ASSESSMENT: BI-RADS BI-RADS 2 - Benign Findings RECOMMENDATION: 1 year F/U This patient's information was entered into a reminder system with a target due date for their next mammogram. Electronically signed by: Tasha Persaud DO 09/24/2024 10:14 AM EDT Dictated By: Tasha Persaud DO Signed By: <Electronically signed by Tasha Persaud DO in OV> 09/24/24 1014 DD/ 0900 TD/TT: 09/24/24 0934 [employer]: Procedure Note Donotuseinterpreter, Image - 09/28/2024 [facility] [address] [place], [place] [address] Mammography Report Signed Patient: Meche Balderas#: [id number] : 1975Acct:[id number] Age/Sex: 49 / FADM Date: 09/24/24 Loc: HO.MAMMO Attending Dr: Tony Osuna MD Ordering Physician: Tony Osuna MDResults: 2Beni gn Findings Date of Service: 09/24/24Follow Up: 1 Year From Orig inal Mammogram Procedure(s): MM tomosynthesis diagnostic BI Accession Number(s): [id number] cc: Kathy Mcneill; Tony Osuna MD EXAMINATION: MM DIAGNOSTIC DIGITAL BREAST TOMOSYNTHESIS, BILATERAL Bilateral Limited ultrasound. CLINICAL INFORMATION: Bilateral areas of pain. Patient has a history of right breast cancer status post lumpectomy. Patient has a history of left breast surgery. Patient has bilateral white nipple discharge. COMPARISON: Mammography: Comparison is made with relevant prior exams. TECHNIQUE: Digital breast mammography with tomosynthesis is performed in both the craniocaudal and mediolateral oblique views along with computer-aided detection (CAD). FINDINGS: The breasts are heterogeneously dense, which may obscure small masses (ACR BI-RADS breast composition Category c). Bilateral circumscribed oval masses which wax and wane consistent with benign fibrocystic changes. Some which were demonstrated to be simple cyst on prior ultrasounds. Right: Postoperative changes are stable. Triangular marker at the site of the patient's pain in the central inner breast without underlying abnormality. No suspicious calcifications masses or other abnormal findings. Targeted color Doppler ultrasound scanning in the retroareolar region and from 2-4 o'clock demonstrates normal fibronodular breast tissue. There is no sonographic abnormality. Left: [place] marker in the upper outer breast posterior depth and central inner breast anterior depth without underlying abnormality. BB marker in the lower inner breast at site of palpable lump without abnormality. Marker clip. Postsurgical changes. No suspicious masses calcifications or other abnormal findings. Targeted color Doppler ultrasound scanning in the left axilla upper outer quadrant retroareolar region demonstrates normal fibroglandular breast tissue. There is no sonographic abnormal findings. Results are provided to the patient at time of visit by the technologist. MM/MM tomosynthesis diagnostic BI IMPRESSION: No mammographic or sonographic abnormalities to account for the patient's bilateral retroareolar nipple discharge bilateral areas of patient's pain and left palpable lumps. Recommend clinical evaluation follow-up. ASSESSMENT: BI-RADS BI-RADS 2 - Benign Findings RECOMMENDATION: 1 year F/U This patient's information was entered into a reminder system with a target due date for their next mammogram. Electronically signed by: Tasha Persaud DO 09/24/2024 10:14 AM EDT RP Dictated By: Tasha Persaud DO Signed By: <Electronically signed by Tasha Persaud DO in OV> 09/24/24 1014 DD/ 0900 TD/TT: 09/24/24 0934 [employer]: [facility] External Provider IMG BI PROCEDURES Edited Result - Final * Hm Colonoscopy (02/20/2024 11:14 AM EDT) [...] documented as of this encounter Care Teams Sports Management Internship Relationship Specialty Start Date End Date Kathy Mcneill MD [address] [place] [address] PCP - General Family Medicine 01/06/22 Shayan Douglas FNP [address] [place] [address] Nurse Practitioner Family Medicine 04/16/23 documented as of this encounter
--- OUTSIDE RECORDS SUMMARY | 2025-01-20 18:25 | XMS_ITS | Encounter Summary ---
Author Organization [employer] Address [address] [facility] 7t [place] [address] Care Team Providers Care Portal Architect Name Role Phone Kathy Mcneill MD Primary Care Provider [phone] Shayan Douglas Unavailable Unavailable Encounter Details Date Type Department Care Team ([facility] st Contact Info) Description 05/15/2023 Orders Only [facility] [address] [place] [address] Kathy Mcneill MD [address] [place] [address] Social History Tobacco Use Types Packs/Day Years [...] Description 02/01/2025 2:30 PM EDT Clinical Support [address] [address] documented as of this encounter Procedures Procedure Name Priority Date/Time Associated Diagnosis Comments US VENOUS DUPLEX LE LT Routine 05/20/2023 1:16 PM EST documented in this encounter Results * US VENOUS DUPLEX LE LT (05/20/2023 1:16 PM EST) Anatomical Region Laterality Modality Abdomen Ultrasound 05/20/2023 1:16 PM EST Narrative 05/20/2023 1:43 PM EST [facility] Primary [facility] [address] [place] [address] [place] [address] Ultrasound Report Signed Patient: Mulu Balderas MR#: [id number] : 1975 Acct:[id number] Age/Sex: 48 / F ADM Date: 05/20/23 Loc: HO.HMGCX Attending Dr: Kathy Mcneill MD Ordering Physician: Kathy Mcneill Date of Service: 05/20/23 Procedure(s): US venous duplex LE LT Accession Number(s): [id number] cc: Kathy Mcneill EXAMINATION: US VENOUS ULTRASOUND [...] in OV> 05/20/23 1339 DD/ 1316 TD/TT: Rn Procedures: Procedure Note Donotuseinterpreter, Image - 05/20/2023 [facility] Adult Primary Care [facility] [address] [place], [place] [address] Ultrasound Report Signed Patient: Meche Balderas#: [id number] : 1975Acct:[id number] Age/Sex: 48 / FADM Date: 05/20/23 Loc: HO.HMGCX Attending Dr: Kathy Mcneill MD Ordering Physician: Kathy Mcneill Date of Service: 05/20/23 Procedure(s): US venous duplex LE LT Accession Number(s): [id number] cc: Kathy Mcneill EXAMINATION: US VENOUS ULTRASOUND [...] in OV> 05/20/23 1339 DD/ 1316 TD/TT: Rn Procedures: us Kathy Mcneill MD IMG US PROCEDURES Final Result documented in this encounter Visit Diagnoses Not on filedocumented in this encounter Additional Health Concerns Assessment Noted Time PHQ-9 Depression Total Score: 0 05/10/20 23 3:34 PM EST documented as of this encounter Care Teams Portal Architect Relationship Specialty Start Date End Date Kathy Mcneill MD [address] [place] [address] PCP - General Family Medicine 01/06/22 Shayan Douglas FNP [address] [place] [address] Nurse Practitioner Family Medicine 04/16/23 documented as of this encounter
--- OUTSIDE RECORDS SUMMARY | 2025-01-20 18:25 | XMS_ITS | Encounter Summary ---
Author Organization [employer] Address [address] [facility] 7[address] [place] [address] Care Team Providers Care Environmental Health Technician Name Role Phone Kathy Mcneill MD Primary Care Provider [phone] Shayan Douglas Unavailable Unavailable Encounter Details Date Type Department Care Team (Late st Contact Info) Description 01/20/2025 Orders Only [facility] External Provider, [facility] Social History Tobacco Use Types Packs/Day Years Used Date Smoking Tobacco: Former Cigarettes Smokeless Tobacco: Never Alcohol Use Standard Drinks/Week Comments Never 0 (1 standard drink = 0.6 oz pur e alcohol) Depression Answer Date Recorded Patient Health Questionnaire-9 Score 17 12/30/2024 Patient Health Questionnaire-9 Score 17 12/30/2024 Last PHQ-9: Questionnaire Data Not on file 0 12/30/2024 Housing Stability Answer Date Recorded What is your housing situation today? I have pamela multani 12/30/[address] you li ve. Do you have problems with any of the following? None of the above 12/30/2024 Food Insecurity Answer Date Recorded Within the past 12 months, y ou worried that your food would run out before you got money to buy more: Never True 12/30/2024 Within the past 12 months,th e food you bought just didn't last and you didn't have enough money to get more: Never True Transportation Answer Date Recorded In the past 12 months, has l ack of transportation kept you from medical appts, meetings, work or from getting things needed for daily living? No 12/30/2024 Utilities Answer Date Recorded In the past 12 months, has t he electric, gas, oil or water company threatened to shut off services in your home? No 12/30/2024 Depression Answer Date Recorded Patient Health Questionnaire-2 Score 4 12/30/2024 Internet Access Answer Date Recorded Internet Access Q1 Yes 12/30/2024 Internet Access Q2 Not on file 12/30/2024 Comments Unknown Sex and Gender Information Value [...] Description 02/01/2025 2:30 PM EDT Clinical Support [facility] [address] [place] [phone] documented as of this encounter Procedures Procedure Name Priority Date/Time Associated Diagnosis Comments INFLUENZA A B2 ID NOW (SANTOYO) Routine 01/20/2025 12:26 PM EDT COVID-19 ID NOW (SANTOYO) Routine 01/20/2025 12:26 PM EDT STREP A NUCLEIC ACID Routine 01/20/2025 12:25 PM EDT XR CHEST 2 VIEWS Routine 01/20/2025 12:2 5 PM EDT documented in this encounter Results * Influenza A B2 ID NOW (Santoyo) (01/20/2025 12:26 PM EDT) IDNOW SERIAL# [id number] [facility] Influenza A Negative Negative [facility] Influenza B2 Negative Negative [facility] Influenza A B2 Note See Note [facility] Comment:The Santoyo ID NOW In fluenza A B2 test is used for thequalitative detection of influenza A and B from patientswith signs and symptoms of respiratory infection.Negative results do not preclude influenza virus infectionand should not be used as the sole basis for diagnosis,treatment or other patient management decisions.There is a risk of false negative results due to thepresence of variants in the viral targets of the assay, lowlevels of virus in the specimen and co- infection withRespiratory Syncytial Virus. 01/20/2025 12:2 6 PM EDT 01/20/2025 12:29 PM EDT us Generic External Data Provider LAB MICROBIOLOGY - GENERAL ORDERABLES Final Result [facility] [address] [place] [phone] * COVID-19 ID NOW (SANTOYO) (01/20/2025 12:26 PM EDT) IDNOW SERIAL# [id number] [facility] COVID-19 TEST Negative Negative [facility] COVID-19 NOTE See Note [facility] Comment: Results are for the identification of SARS-CoV2 RNA. TheSARS-CoV2 RNA is generally detectable in respiratory samplesduring the acute phase of infection. Positive results areindicative of the presence of SARS-CoV-2 RNA; clinicalcorrelation with patient history and other diagnosticinformation is necessary to determine patient infectionstatus. Positive results do not rule out bacterial infectionor co- infection with other viruses.Testing facilities within the [facility] and itsterritories are required to report all positive results tothe appropriate public health authorities.Negative results should be treated as presumptive and, ifinconsistent with clinical signs and symptoms or necessaryfor patient management, should be tested with differentauthorized or cleared molecular tests. Negative results donot preclude SARS-CoV2 RNA infection and should not be usedas the sole basis for patient management decisions. Negativeresults should be considered in the context of a patient'srecent exposures, history and the presence of clinical signsand symptoms consistent with COVID-19.This test has been authorized by the FDA under an EmergencyUse Authorization (EUA) for use by authorized laboratories.Testing performed on the Santoyo ID NOW utilizing NAAT. 01/20/2025 12:2 6 PM EDT 01/20/2025 12:29 PM EDT us Generic External Data Provider LAB MOLECULAR REFUGIO GNOSTICS ORDERABLES Final Result Performing Organization Address [facility] Phone Number [facility] [address] [place] [phone] * Strep A Nucleic Acid (01/20/2025 12:25 PM EDT) IDNOW SERIAL# [id number] [facility] Strep A Nucleic Acid Negative Negative [facility] Comment:All test results mus t be correlated with clinical findings.This test has not been evaluated for monitoring treatment ofinfection.Additional follow-up testing using the culture method isrequired if the result is negative and clinical symptomspersist, or in the event of an acute rheumatic feveroutbreak. 01/20/2025 12:2 5 PM EDT 01/20/2025 12:29 PM EDT us Generic External Data Provider LAB MICROBIOLOGY - GENERAL ORDERABLES Final Result Performing Organization Address [facility] de Phone Number [facility] [address] [place] [phone] * XR Chest 2 Views (01/20/2025 12:25 PM EDT) Anatomical Region Laterality Modality Chest Radiographic Noa ging 01/20/2025 12:2 5 PM EDT Narrative 01/20/2025 12:37 PM EDT [address] [address] XRay Report Signed Patient: Mulu Balderas MR#: [id number] : 1975 Acct:[id number] Age/Sex: 49 / F ADM Date: 01/20/25 Loc: HO.ED Attending Dr: Ordering Physician: Fernanda Garcia Date of Service: 01/20/25 Procedure(s): XR chest 2V Accession Number(s): [id number] cc: Kathy Mcneill; Fernanda Garcia Reason for Exam: sob EXAMINATION: XR CHEST CLINICAL INFORMATION: sob COMPARISON: May 22, 2023 TECHNIQUE: 2 views of the chest were obtained. FINDINGS: Hyperinflated lungs. Bilateral apical lung scarring. Pulmonary reticular pattern. No consolidation, pleural effusion or pneumothorax. Cardiac mediastinal silhouette size is normal. Multilevel spondylosis and kyphotic deformity thoracic spine. XR/XR chest 2V IMPRESSION: Consider COPD emphysematous type changes without acute airspace disease. Electronically signed by: Kit Eller MD 01/20/2025 12:34 PM EDT RP Dictated By: Kit Majano MD Signed By: <Electronically signed by Kit Limon MD in OV> 01/20/25 1234 DD/ 1225 TD/TT: 01/20/25 1229 [employer] Grinder Tender: Procedure Note Donotuseinterpreter, Image - 01/20/2025 [place] [address] XRay Report Signed Patient: Mulu Balderas#: [id number] : 1975Acct:[id number] Age/Sex: 49 / FADM Date: 01/20/25 Loc: .ED Attending Dr: Ordering Physician: Fernanda Garcia Date of Service: 01/20/25 Procedure(s): XR chest 2V Accession Number(s): [id number] cc: Kathy Mcneill; Fernanda Garcia Reason for Exam: sob EXAMINATION: XR CHEST CLINICAL INFORMATION: sob COMPARISON: May 22, 2023 TECHNIQUE: 2 views of the chest were obtained. FINDINGS: Hyperinflated lungs. Bilateral apical lung scarring. Pulmonary reticular pattern. No consolidation, pleural effusion or pneumothorax. Cardiac mediastinal silhouette size is normal. Multilevel spondylosis and kyphotic deformity thoracic spine. XR/XR chest 2V IMPRESSION: Consider COPD emphysematous type changes without acute airspace disease. Electronically signed by: Kit Eller MD 01/20/2025 12:34 PM EDT RP Dictated By: Kit Majano MD Signed By: <Electronically signed by Kit Limon MDin OV> 01/20/25 1234 DD/ 1225 TD/TT: 01/20/25 1229 [employer] Grinder Tender: [facility] External Provider IMG XR PROCEDURES Final Result documented in this encounter Visit Diagnoses Not on filedocumented in this encounter Additional Health Concerns Assessment Noted Time PHQ-9 Depression Total Score: 17 025 3:16 PM EDT documented as of this encounter Care Teams Environmental Health Technician Relationship Specialty Start Date End Date Kathy Mcneill MD [address] [place] [phone] PCP - General Family Medicine 01/06/22 Shayan Douglas FNP [address] [place] [phone] Nurse Practitioner Family Medicine 04/16/23 documented as of this encounter
--- OUTSIDE RECORDS SUMMARY | 2025-01-20 18:25 | XMS_ITS | Encounter Summary ---
Author Organization [employer] Address [address] [facility] 7[address] [place] [address] Care Team Providers Care Sales Executive Insurance Name Role Phone Kathy Mcneill MD Primary Care Provider [phone] Shayan Douglas Unavailable Unavailable Reason for Visit * Reason Comments Med Refill Encounter Details Date Type Department Care Team ([facility] st Contact Info) Description 02/22/2023 Refill [facility] [address] [place], [place] [phone] Kathy Mcneill MD [address] [place] [address] Migraine without aura and without status migrainosus, [...] Description 02/01/2025 2:30 PM EDT Clinical Support [facility] [address] [place] [phone] documented as of this encounter Visit Diagnoses Diagnosis Migraine without aura and without status migrainosus, not intractable documented in this encounter Additional Health Concerns Assessment Noted Time PHQ-9 Depression Total Score: 4 02/05/20 23 3:48 PM EDT documented as of this encounter Care Teams Sales Executive Insurance Relationship Specialty Start Date End Date Kathy Mcneill MD [address] [place] [phone] PCP - General Family Medicine 01/06/22 Shayan Douglas FNP [address] [place] [phone] Nurse Practitioner Family Medicine 04/16/23 documented as of this encounter
--- OUTSIDE RECORDS SUMMARY | 2025-01-20 18:25 | XMS_ITS | Encounter Summary ---
Author Organization [employer] Address [address] [facility] 7[address] [place] [address] Care Team Providers Care Executive Vice President Business Development Name Role Phone Kathy Mcneill MD Primary Care Provider [phone] Shayan Douglas Unavailable Unavailable Reason for Visit * Reason Comments Med Refill Encounter Details Date Type Department Care Team ([facility] st Contact Info) Description 12/28/2023 Refill [facility] [address] [place], [place] [phone] Kathy Mcneill MD [address] [place] [address] Migraine without aura and without status migrainosus, [...] Description 02/01/2025 2:30 PM EDT Clinical Support [facility] [address] [place] [phone] documented as of this encounter Visit Diagnoses Diagnosis Migraine without aura and without status migrainosus, not intractable documented in this encounter Additional Health Concerns Assessment Noted Time PHQ-9 Depression Total Score: 0 05/10/20 23 3:34 PM EST documented as of this encounter Care Teams Executive Vice President Business Development Relationship Specialty Start Date End Date Kathy Mcneill MD [address] [place] [phone] PCP - General Family Medicine 01/06/22 Shayan Douglas FNP [address] [place] [phone] Nurse Practitioner Family Medicine 04/16/23 documented as of this encounter
--- OUTSIDE RECORDS SUMMARY | 2025-01-20 18:25 | XMS_ITS | Clinical Summary ---
Author Organization [employer] Address [address] [place] [address] [address] [place] [address] Care Team Providers Care Physics Department Chair Name Role Phone Kathy Mcneill MD Primary Care Provider [phone] Shayan Douglas Unavailable Unavailable Allergies Active Allergy [...] by mouth 3 times daily. 024 Active atorvastatin (Lipitor) 40 MG tablet TAKE 1 TABLET BY MOUTH AT BEDTIME 90 tablet 3 024 Active Bismuth Subsalicylate 262 MG capsuleIndicatio ns:Helicobacter pylori (H. pylori) infection Take 1 tablet by mouth 3 times daily. 42 capsule Active metroNIDAZOLE (Flagyl) 500 MG tabletIndication s:Helicobacter [...] 240mg daily 30 tablet 025 2025 Active mirtazapine (Remeron) 30 MG tabletIndication s:Other specified anxiety disorders TAKE 1 TABLET BY MOUTH AT BEDTIME 90 tablet 3 Active ibuprofen 800 MG tabletIndication s:Right sided [...] day. Take BP Daily 1 kit Active levothyroxine (Synthroid, Levoxyl) 125 MCG tabletIndication s:Hypothyroidism , unspecified type TAKE 1 TABLET BY MOUTH EVERY MORNING 90 tablet 3 Active amLODIPine (Norvasc) 10 MG tabletIndication s:Primary hypertension TAKE 1 TABLET BY MOUTH EVERYDAY AT NOON (BLOOD PRESSURE) 90 tablet 3 Active gabapentin (Neurontin) 100 MG capsuleIndicatio ns:Migraine without aura and without status migrainosus, not intractable TAKE 1 CAPSULE BY MOUTH AT NOON, EVENING, AND BEDTIME 90 capsule 3 Active D3 Super Strength 50 MCG (2000 UT) capsule TAKE 1 CAPSULE BY MOUTH EVERYDAY AT NOON 90 capsule 3 Active buPROPion SR (Wellbutrin SR) 150 MG 12 hr tabletIndication s:Anxious depression TAKE 1 TABLET BY MOUTH EVERYDAY AT NOON DO NOT BREAK, CRUSH, DISSOLVE OR CHEW 90 tablet 1 Active salicylic acid 17 % gelIndications:P lantar wart of right foot Apply topically Once per day. 7 g Active ergocalciferol (Vitamin D2) 1.25 MG (04318 UT) capsule Take 1 capsule (1.25 mg) by mouth 1 (one) time per week. 6 capsule 1 025 2024 Active cyanocobalamin (Vitamin B-12) 100 MCG tablet Take 1 tablet (100 mcg) by mouth Once per day. 90 tablet 3 025 2025 Active varenicline (Chantix) 1 MG tablet Take 1 tablet (1 mg) by mouth 2 times daily. Take with full glass of water. 60 tablet 1 Active varenicline (Chantix) 0.5 MG tablet Take 1 tablet (0.5 mg) by mouth 2 times daily. Take with full glass of water. 60 tablet 025 2024 Discontinued(R eorder (will not trigger notification [...] results and refer for any abnormal to guest experience captain for biopsy Cigarette nicotine dependence without complicati [...] in 10/2021, with simple cysts Migraines 03/31/2022 Vitamin D deficiency 03/31/2022 Arterial fibromuscular dysplasia [...] 12:10 PM EST): Continue Synthroid 125mcg daily Lymphedema 09/23/2019 Primary gout 07/10/2018 Hypertension 04/01/2017 Assessment & Plan (12/31/2024 11:21 AM EDT): Follow up with the Nurse for blood pressure check in 4 weeks. Continue with a low sodium diet and regular exercise as tolerated. For BP < or = to 139/89 (or 129/79 for diabetic patients) continue current medication regimen and follow up with PCP in 8 weeks. For BP > or = to 140/90 (or 130/80 for diabetic patients) increase Valsartan to 320 mg once a day Follow up with the Nurse for a second blood pressure check in 2-4 weeks if BP 140-150/90+ (or 130-150/80+ for diabetic patients). Refer to CDTM for BP >150/90+. If second Nurse visit is needed: For BP < or = to 139/89 (or 129/79 for diabetic patients) continue current medication regimen and follow up with the PCP in 8 weeks. For BP > or = to 140/90 (or 130/80 for diabetic patients) increase Metoprolol XL to 150 mg once a day Follow up with the PCP in 4 weeks. Assessment & Plan (05/22/2024 8:26 AM EST): [...] w oth diabetic neuro comp 12/28/2022 04/08/2023 Myocardial infarction 03/31/20222024 Assessment & Plan (07/31/2022 11:19 AM EDT): NSTEMI, continue Bblocker, statin, ASA Encounters Date Type Department Care Team Description 01/20/2025 Orders Only [facility] External Provider, [facility] 12/30/2024 3:15 PM EDT Office Visit [facility] [address] [place] [address] Kathy Mcneill MD Secondary hypertension (Primary Dx); Arterial fibromuscular dysplasia (CMS/HCC); Carotid artery aneurysm (CMS/HCC); History of myocardial infarction 12/29/2024 Telephone [facility] [address] [place] [address] Kathy Mcneill MD chart prep 12/29/2024 Telephone [facility] [address] [place] [address] Kathy Mcneill MD Chart Prep 12/29/2024 Travel 12/21/2024 1:30 PM EDT Office Visit [facility] [address] [place] [address] Boris, Shara, OD Myelinated retinal nerve fiber layer (Primary Dx); Optic nerve asymmetry, right; Cortical age-related cataract of both eyes; Presbyopia 12/21/2024 Travel 12/17/2024 3:15 PM EDT Office Visit [facility] [address] [place] [address] Mihaela Ochoa CNP Plantar wart of right foot (Primary Dx) 12/17/2024 Travel 12/17/2024 Telephone [facility] [address] [place] [address] Kathy Mcneill MD Nurse Triage 12/17/2024 Refill [facility] [address] [place] [address] Kathy Mcneill MD 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 3 Months Immunizations Immunization Administration Dates Next Due Influenza Injectable Quadriv alant Preservative Free IIV4 MDCK 03/05/2017 Influenza injectable quadriv alent IIV4 with preservative 02/06/2018 Influenza injectable quadriv alent preservative free 04/08/2023,02/07/2022,03/02/2021,2019 Influenza, IIV3, injectable 02/02/2014 Influenza, Split (incl. yoly fied surface antigen) 01/21/2012 Influenza, seasonal, injecta ble, preservative free 01/27/2024 Pfizer Covid-19 Vaccine 12+ 03/02/2021, 1,06/25/2020 TD (adult), 2 Lf tetanus tox oid, preservative free, adsorbed 05/22/2007,06/21/1995 Tdap 10/01/2016 Zoster, Recombinant 10/13/2024, 5(Deferred: Patient decision),05/19/2024 Family History Medical History Relation Name Comments Breast cancer Other Diabetes Other Heart disease Other Relation Name Status Comments Other Social History Tobacco Use Types Packs/Day Years Used Date Smoking Tobacco: Former Cigarettes Smokeless Tobacco: Never Tobacco Cessation:Counseling Given: Not Answered Alcohol Use Standard Drinks/Week Comments Never 0 (1 standard drink = 0.6 oz pur e alcohol) Depression Answer Date Recorded Patient Health Questionnaire-9 Score 17 12/30/2024 Patient Health Questionnaire-9 Score 17 12/30/2024 Last PHQ-9: Questionnaire Data Not on file 0 12/30/2024 Housing Stability Answer Date Recorded What is your housing situation today? I have pamelajosh multani 12/30/[address] you [...] Sign Reading Time Taken Comments Blood Pressure 150/90 12/30/2024 3:04 PM EDT Pulse 88 12/30/2024 3:04 PM EDT Temperature 36.3 C (97.4 F) 12/30/2024 3:04 PM EDT Respiratory Rate 18 12/30/2024 3:04 PM EDT Oxygen Saturation 98% 12/17/2024 3:07 PM EDT Inhaled Oxygen Concentration - - Weight 58.7 kg (129 lb 4.8 oz) 12/30/2024 3:04 P M EDT Height 157.5 cm (5' 2 ) 12/30/2024 3:04 PM EDT Body Mass Index 23.65 12/30/2024 3:04 PM EDT Plan of Treatment Upcoming Encounters Date Type Department Care Team (Late st Contact Info) Description 02/01/2025 2:30 PM EDT Clinical Support [facility] [address] [place] [address] [phone] Health Maintenance Due Date Last Done Comments CT Colonography 1975 FIT DNA/Cologuard 1975 FIT 1975 FOBT 1975 Sigmoidoscopy 1975 Family Planning (PISQ) 1988 Hepatitis B Vaccines (1 of 3 - 19+ 3-dose series) 1992 Pneumococcal Vaccine: 50+ Years (1 of 2 - PCV) 1992 COVID-19 Vaccine ( - season) 2025 03/02/2021, 07/16/2020, 06/25/2020 Influenza Vaccine (#1) 2025 , 04/08/2023, 02/07/2022, Additional history exists Depression Monitoring 07/02/2025 12/30/2024, 025 Disability Screening 10/12/2025 10/12/2024 Alcohol/Substance Use Screening 12/30/2025 12/30/2024 SDOH Screening 12/30/2025 12/30/2024 Tobacco Screening 01/17/2026 01/17/2025 Lipid Panel 01/18/2026 01/18/2021, 07/28/2020 DTaP/Tdap/Td Vaccines [...] C Screening Completed 04/08/2023 , 01/18/2021, 07/28/2020 Zoster Vaccines Completed 10/13/2024, 05/19/2024 HIB Vaccines Aged Out No longer eligi [...] Procedure Name Priority Date/Time Associated Diagnosis Comments COVID-19 ID NOW (SANTOYO) Routine 01/20/2025 12:26 PM EDT INFLUENZA A B2 ID NOW (SANTOYO) Routine 01/20/2025 12:26 PM EDT XR CHEST 2 VIEWS Routine 01/20/2025 12:2 5 PM EDT STREP A NUCLEIC ACID Routine 01/20/2025 12:25 PM EDT VITAMIN D,25-OH,TOTAL,IA Routine 12/29/2024 1:49 PM EDT Hypersomnia IRON AND TOTAL IRON BINDING CAPACITY Routine 12/29/2024 1:49 PM EDT Hypersomnia VITAMIN B12/FOLATE, SERUM PANEL Routine 12/29/2024 1:49 PM EDT Hypersomnia COMPREHENSIVE METABOLIC PANEL Routine 12/29/2024 1:49 PM EDT Hypersomnia TSH W/REFLEX TO FT4 Routine 12/29/2024 1 :49 PM EDT Hypersomnia CBC WITH AUTO DIFFERENTIAL Routine 12/29/2024 1:49 PM EDT Hypersomnia OCT, OPTIC NERVE - OU - BOTH EYES Routine 12/21/2024 1:30 PM EDT Optic nerve asymmetry, right HM COLONOSCOPY Routine 02/20/2024 11:14 AM EDT [...] Recently Relevant to Health Maintenance Results * Influenza A B2 ID NOW (Santoyo) (01/20/2025 12:26 PM EDT) IDNOW SERIAL# [id number] [facility] Influenza A Negative Negative [facility] Influenza B2 Negative Negative [facility] Influenza A B2 Note See Note [facility] Comment:The Santoyo ID NOW In fluenza [...] LAB MICROBIOLOGY - GENERAL ORDERABLES Final Result [facility] [address] [place] [phone] * COVID-19 ID NOW (SANTOYO) (01/20/2025 12:26 PM EDT) IDNOW SERIAL# [id number] [facility] COVID-19 TEST Negative Negative [facility] COVID-19 NOTE See Note [facility] Comment: Results are for the identification of SARS-CoV2 RNA. TheSARS-CoV2 RNA is generally detectable in respiratory samplesduring the acute phase of infection. Positive results areindicative of the presence of SARS-CoV-2 RNA; clinicalcorrelation with patient history and other diagnosticinformation is necessary to determine patient infectionstatus. Positive results do not rule out bacterial infectionor co- infection with other viruses.Testing facilities within the [facility] are required to report all positive results [...] use by authorized laboratories.Testing performed on the [employer] NOW utilizing NAAT. 01/20/2025 12:2 6 PM EDT 01/20/2025 12:29 PM EDT Generic External Data Provider LAB MOLECULAR REFUGIO GNOSTICS ORDERABLES Final Result Performing Organization Address [facility] Co de Phone Number [facility] [address] [place] [phone] * Strep A Nucleic Acid (01/20/2025 12:25 PM EDT) IDNOW SERIAL# [id number] [facility] Strep A Nucleic Acid Negative Negative [facility] Comment:All test results mus t be correlated with clinical findings.This test has not been evaluated for monitoring treatment ofinfection.Additional follow-up testing using the culture method isrequired if the result is negative and clinical symptomspersist, or in the event of an acute rheumatic feveroutbreak. 01/20/2025 12:2 5 PM EDT 01/20/2025 12:29 PM EDT [facility] External Data Provider LAB MICROBIOLOGY - GENERAL ORDERABLES Final Result Performing Organization Address [facility] Co de Phone Number [facility] [address] [place] [phone] * XR Chest 2 Views (01/20/2025 12:25 PM EDT) Anatomical Region Laterality Modality Chest Radiographic Noa ging 01/20/2025 12:2 5 PM EDT Narrative 01/20/2025 12:37 PM EDT [address] [address] XRay Report Signed Patient: Mulu Balderas MR#: [id number] : 1975 Acct:[id number] Age/Sex: 49 / F ADM Date: 01/20/25 Loc: HO.ED Attending Dr: Ordering Physician: Fernanda Garcia Date of Service: 01/20/25 Procedure(s): XR chest 2V Accession Number(s): [id number] cc: Kathy Mcneill; Fernanda Garcia Reason for [...] Kit Eller MD 01/20/2025 12:34 PM EDT Dictated By: Kit Majano MD Signed By: <Electronically signed by Kit Limon MD in OV> 01/20/25 1234 DD/ 1225 TD/TT: 01/20/25 1229 It Associate: Procedure Note Donotuseinterpreter, Image - 01/20/[address] [address] XRay Report Signed Patient: Mulu BalderasMR#: [id number] : 1975Acct:[id number] Age/Sex: 49 / FADM Date: 01/20/25 Loc: HO.ED Attending Dr: Ordering Physician: Fernanda Garcia Date of Service: 01/20/25 Procedure(s): XR chest 2V Accession Number(s): [id number] cc: Kathy Mcneill; Fernanda Garcia Reason for [...] 01/20/25 1234 DD/ 1225 TD/TT: 01/20/25 1229 It Associate: [facility] External Provider IMG XR PROCEDURES Final Result * (ABNORMAL) Vitamin D, 25-Hydroxy, Total, Immunoassay (12/29/2024 1:49 PM EDT) Vitamin D 25-OH Total 25.2(L) >30 ng/mL [facility] Comment: Health Based Reference Values*< 20 ng/mL Abarpukwx20-93 ng/mL Insufficient> 30 ng/mL Sufficient*Teresa GARCIA. N Engl J Med. 2007;357:266-280There is no well-established upper level of normal vitamin Dlevels. Some laboratories use 50 ng/mL as an upper limit ofnormal. However, toxicity is patient-dependent and may occurat any level. Careful correlation with the patient'spresentation is necessary and, if there is concern forvitamin D toxicity, treatment should be consideredirrespective of the serum level.Care must be taken in interpreting Vitamin D results fromdifferent laboratories and methodologies. Published datademonstrated that results from patients undergoinghemodialysis may show a negative bias when tested withvarious automated 25-OH vitamin D assays when compared toLC-MS/MS.When testing samples from patients whose predominant form ofVitamin D is Vitamin D2, such as patients receiving VitaminD2 supplementation, results that are subtherapeutic shouldbe confirmed with another method such as LC-MS/MS. Blood Venous blood specimen / Unknown 12/29/2024 1:49 PM EDT 12/29/2024 4:17 PM EDT [facility] LAB BLOOD ORDERABLES Veena l Result Performing Organization Address [facility] Co de Phone Number [facility] [address] [place] [phone] * (ABNORMAL) Vitamin B12/Folate, Serum Panel (12/29/2024 1:49 PM EDT) Vitamin B12 184(L) 200 - 900 pg/mL [facility] Comment:NORMAL 200-900 PG/ML INDETERMINATE 160-199 PG/ML DEFICIENT < 160 PG/ML Folate 9.8 > or = 4.0 ng/mL [facility] Comment:Reference Values:> o r = 4.0 ng/mL< 4.0 ng/mL suggests folate deficiency Methotrexate, aminopterin and folinic acid(leucovorin) are chemotherapeutic agents whose molecularstructures are similar to folate; therefore, the Architectfolate assay cannot be used for patients using these drugs. Blood Venous blood specimen / Unknown 12/29/2024 1:49 PM EDT 12/29/2024 4:17 PM EDT [facility] LAB BLOOD ORDERABLES Veena l Result Performing Organization Address [facility] Co de Phone Number [facility] [address] [place] [phone] * TSH W/Reflex to FT4 (12/29/2024 1:49 PM EDT) TSH reflex Free T4 3.21 0.32 - 4.0 uIU/mL [facility] Blood Venous blood specimen / Unknown 12/29/2024 1:49 PM EDT 12/29/2024 4:17 PM EDT [facility] LAB BLOOD ORDERABLES Veena l Result [facility] [address] [place], [place] [phone] * CBC auto differential (12/29/2024 1:49 PM EDT) White Blood Count 7.7 4.8 - 10.8 X10*3/uL [facility] Red Blood Count 4.41 4.20 - 5.50 X10*6/uL [facility] Hemoglobin 13.7 12.0 - 16.0 g/dl [facility] Hematocrit 41.2 37.0 - 47.0 % [facility] Mean Corpuscular Volume 93.4 80.0 - 98.0 fL [facility] Mean Corpuscular Hemoglobin 31.1 27.0 - 33.0 pg [facility] Mean Corpuscular HGB Conc 33.3 31.0 - 35.0 g/dl [facility] Red Cell Distribution Width 12.6 11.0 - 16.0 % [facility] Platelet Count 181 160 - 400 X10*3/uL [facility] Mean Platelet Volume 11.6 9.4 - 12.3 fL [facility] Neutrophils Percent Auto 55.0 45 - 73 % [facility] Imm Gran Pct Auto 0.4 0.0 - 0.4 % [facility] Lymphocytes Percent Auto 35.2 20 - 40 % [facility] Monocytes Percent Auto 7.9 2 - 11 % [facility] Eosinophils Percent Auto 0.8 0 - 4 % [facility] Basophils Percent Auto 0.7 0 - 2 % [facility] NRBC Pct Auto 0.0 0.0 - 0.2 /100WBC [facility] Neutrophils Absolute Auto 4.2 2.0 - 8.3 x10*3/uL [facility] Imm Gran Abs Auto 0.03 0.00 - 0.03 X10*3/uL [facility] Lymphocytes Absolute Auto 2.7 1.2 - 4.9 X10*3/uL [facility] Monocytes Absolute Auto 0.6 0.1 - 1.2 X10*3/uL [facility] Eosinophils Absolute Auto 0.1 0.0 - 0.4 X10*3/uL [facility] Basophils Absolute Auto 0.1 0.0 - 0.2 X10*3/uL [facility] NRBC Abs Auto 0.000 0.0 - 0.012 X10*3/uL [facility] Blood Venous blood specimen / Unknown 12/29/2024 1:49 PM EDT 12/29/2024 4:17 PM EDT [facility] LAB BLOOD ORDERABLES Veena l Result Performing Organization Address [facility] Co de Phone Number [facility] [address] [place] [phone] * Iron And Total Iron Binding Capacity (12/29/2024 1:49 PM EDT) Pathologist [facility] Iron 112 30 - 160 mcg/dL [facility] Total Iron Binding Capacity 259 228 - 428 mcg/dL [facility] Percent Iron Saturation 43 15 - 50 % [facility] Unsaturated Iron Binding 147 ug/dL [facility] Blood Venous blood specimen / Unknown 12/29/2024 1:49 PM EDT 12/29/2024 4:17 PM EDT [facility] LAB BLOOD ORDERABLES Veena l Result Performing Organization Address [facility] Co de Phone Number [facility] [address] [place] [phone] * (ABNORMAL) Comprehensive Metabolic Panel (12/29/2024 1:49 PM EDT) Sodium 144 135 - 145 mmol/L [facility] Potassium 4.2 3.3 - 5.1 mmol/L [facility] Chloride 110(H) 96 - 108 mmol/L [facility] Carbon Dioxide 28 22 - 29 mmol/L [facility] Anion Gap 10(L) 12 - 20 [facility] Urea Nitrogen (BUN) 11 9 - 16 mg/dL [facility] Creatinine, Serum 0.68 0.5 - 1.4 mg/dL [facility] Estimated Glomerular Filt Rate >60 [facility] Comment:Chronic Kidney Disea se: Estimated GFR < 60 mL/min/1.05e3Qmyion Kidney Disease: Estimated GFR < 15 mL/min/1.73m2 Glucose 81 60 - 115 mg/dL [facility] Calcium 9.7 8.4 - 10.2 mg/dL [facility] Bilirubin, Total 0.3 0.0 - 1.0 mg/dL [facility] Aspartate Amino Transferase 25 5 - 31 U/L [facility] Alanine Aminotransferase 21 0 - 31 U/L [facility] Total Protein 7.0 6.5 - 8.0 g/dL [facility] Albumin Level 4.4 3.5 - 5.0 g/dL [facility] Alkaline Phosphatase 87 39 - 117 U/L [facility] Blood Venous blood specimen / Unknown 12/29/2024 1:49 PM EDT 12/29/2024 4:17 PM EDT [facility] LAB BLOOD ORDERABLES Veena l Result [facility] [address] [place] [address] [phone] * OCT, Optic Nerve - OU - Both Eyes (12/21/2024 1:30 PM EDT) Narrative Shara Escalante, OD - 01/18/2025 2:37 PM EDT Images from the original result were not included. Right Eye Images reviewed and comparison made to baseline. Reliability: good and adequate. Left Eye Images reviewed and comparison made to baseline. Reliability: good and adequate. Notes OCT OPTIC NERVE INTERPRETATION Optical Coherence Tomography Interpretation Report Test Details: Measurements: OD OS C/D Horizontal 0.74 0.81 C/D Vertical 0.65 0.69 Disc area 2.90 mm 2 2.80 mm 2 RNFL Average 122 microns 122 microns Test findings: OD: Thicker than average RNFL in temporal quadrant, normal RNFL thickness in all other quadrants OS: Thicker than average RNFL in temporal quadrant, normal RNFL thickness in all other quadrants Impression and Plan: Right eye: stable compared to 06/2022 scan Left eye: 1 micron decrease in average RNFL thickness compared to 06/2022 scan Stable to previous exam findings. No suspicion for pathology today. Will monitor at her next complete eye exam. Shara Escalante OD OPHTH TOMOGRAPHY Final Result * Hm Colonoscopy (02/20/2024 11:14 AM EDT) Colonoscopy Normal Normal Narrative Yue Biggs - 02/20/2024 11:14 AM EDT Recommended 10 years see external hospital admission note on 02/20/2024 Historical Provider HEALTH MAINTENANCE Edited Result - Final * HPV mRNA E6/E7 w/Reflex to HPV Genotypes 16, 18/45 (05/10/2023 4:56 PM EST) [facility] HPV nRNA E6/E7 Not Detected Not Detected [facility] Comment:Methodology: Transcr iption-Mediated AmplificationThis assay detects E6/E7 viral messenger RNA (mRNA) from 14high-risk HPV types (16,18,31,33,35,39,45,51,52,56,58,59,66,68).Cervical sources are required for HPV testing.If a vaginal source from a patient who has had atotal hysterectomy with removal of cervix wassubmitted, please contact the testing laboratoryfor alternative testing options.For additional information, please refer [email or web address]/faq/PGK467f2(This link if provided for information/educational purposes only.)THIS TEST WAS PERFORMED AT:[employer] [place] [phone] CRUZ MD HPV mRNA E6/E7 [facility] HPV 16 RNA [facility] HPV 18/45 RNA [facility] 05/10/2023 4:56 PM EST 05/14/2023 8:00 AM EST Kathy Mcneill MD LAB CYTOLOGY ORDERABLES Final Result [facility] [address] [place] [phone] * Pap Smear (05/10/2023 4:56 PM EST) 05/10/2023 4:56 PM EST 05/14/2023 8:00 AM EST Narrative [facility] - 05/17/2023 1:44 PM EST ----- ------- Name: Mulu Balderas Age/Sex: 48/F : 1975 Unit#: [id number] Attend Dr: Kathy Mcneill Re05/10/23 Status: [facility]ch: ----- ------- SPEC : [id number] RECD: 05/14/23 STATUS: MAGDALENA CARREON NUM: [id number] NORTH: 05/10/23 [facility] DR: Kathy Mcneill ENTERED: 05/14/23 SP TYPE: Pap Smr OTHR DR: ORDERED: Pap Smear Interpretation Satisfactory for evaluation. Negative for intraepithelial lesion or malignancy. HPV mRNA E6/E7: NOT DETECTED This assay detects E6/E7 viral messenger RNA (mRNA) from 14 high-risk HPV types (16, 18, 31, 33, 35, 39, 45, 51, 52, 56, 58, 59, 66, 68) HPV testing performed by [employer] [place], [place]. See reference laboratory portion of the EMR for entire report. Clinical Information LMP: Menopause Previous PAP test: Unknown date/findings Material Received ThinPrep-Cervical ----- ------- Signed (signature on file) INNA Cobb (ASCP) 05/17/23 1344 ----- ------- END OF REPORT Kathy Mcneill MD LAB CYTOLOGY ORDERABLES Final Result Performing Organization Address [facility]/ZIP Co de Phone Number [facility] [address] [place] [address] [phone] * Hepatitis C Ab (04/08/2023 2:44 PM EST) Hepatitis C Antibody Nonreactive Nonreactive [facility] Comment:Antibodies to HCV no t detected; does not exclude early acuteHCV infection. Blood Venous blood specimen / Unknown 04/08/2023 2:44 PM EST 04/08/2023 4:15 PM EST Kathy Mcneill MD LAB BLOOD ORDERABLES Final Res ult Performing Organization Address City/[facility]/ZIP Co de Phone Number [facility] [address] [place] [phone] * HIV-1/2 Antigen and Antibodies, Fourth Generation, with Reflexes (04/08/2023 2:44 PM EST) Pathologist [facility] HIV AB/AG Nonreactive Nonreactive [facility] Comment:HIV-1 p24 Ag and/or HIV-1/HIV-2 Ab not detected.A test result that is nonreactive does not exclude thepossibility of exposure to or infection with HIV-1 and/orHIV-2. Nonreactive results in this assay for individualswith prior exposure to HIV-1 and/or HIV-2 may be due toantigen and antibody levels that are below the limit ofdetection of this assay.The Combined Power HIV Ag/Ab Combo assay result andsupplemental assay results should be interpreted inconjunction with the patient's clinical presentation,history and other laboratory results. If the results areinconsistent with clinical evidence, additional testing issuggested to confirm the result. Blood Venous blood specimen / Unknown 04/08/2023 2:44 PM EST 04/08/2023 4:15 PM EST us Kathy Mcneill MD LAB BLOOD ORDERABLES Final Res ult Performing Organization Address City/[facility]/ZIP Co de Phone Number [facility] [address] [place] [phone] * (ABNORMAL) LIPID PANEL, STANDARD (01/18/2021 2:59 PM EDT) Pathologist [facility] Chol/HDLC Ratio 2.6 <5.0 (calc) [facility] Cholesterol, Total 115 <200 mg/dL [facility] HDL Cholesterol 44(L) > OR = 50 mg/dL [facility] LDL Cholesterol 51 mg/dL (calc) [facility] Comment: Reference range: <100 Desirable range <100 mg/dL for primary prevention; <70 mg/dL for patients with CHD or diabetic patients with > or = 2 CHD risk factors. LDL-C is now calculated using the Johnnie-Brewer calculation, which is a validated novel method providing better accuracy than the Friedewald equation in the estimation of LDL-C. Johnnie SS et al. LAURENT. 2013;310(19): 9536-2147 (http://education.[employer]/faq/TSC447) Non-HDL Cholesterol 71 <130 mg/dL (calc) [facility] Comment: For patients with diabetes plus 1 major ASCVD risk factor, treating to a non-HDL-C goal of <100 mg/dL (LDL-C of <70 mg/dL) is considered a therapeutic option. Triglycerides 110 <150 mg/dL [facility] 01/18/2021 2:59 PM EDT us Dayan Diez [facility] LAB BLOOD ORDERABLES Final Res ult [facility] [address] from Last 3 Months or Most Recently Relevant to Health Maintenance Insurance [employer] C3 Care Teams Physics Department Chair Relationship Specialty Start Date End Date Kathy Mcneill MD [address] [place] [address] PCP - General Family Medicine 01/06/22 Shayan Douglas FNP [address] [place] [address] Nurse Practitioner Family Medicine 04/16/23
--- OUTSIDE RECORDS SUMMARY | 2025-01-20 18:25 | XMS_ITS | Clinical Summary ---
Author Organization [facility] Address [address] [place], [place] [phone] Phone Care Team Providers Care Insurance Inspector Name Role Phone Dayan Diez MANAGER RECRUITMENT Primary Care Provider Unav ailable Social History Tobacco Use Types Packs/Day Years Used Date Smoking Tobacco: Never Assessed Comments Unknown Sex and Gender Information Value Date Recorded Sex Assigned at Not on file Legal Sex Female 2:15 PM EST Gender Identity Not on file Sexual Orientation Not on file Plan of Treatment Not on file Medical Devices Not on file Insurance [facility] C3 ACO [facility] C3 ACO [facility] C3 ACO [facility] C3 ACO [facility] C3 ACO [facility] C3 ACO [facility] C3 ACO [facility] C3 ACO Care Teams Insurance Inspector Relationship Specialty Start Date End Date Dayan Diez NP PCP - General Family Medicine 03/27/21 Additional Source Comments The information contained in this document represents components of the legal health record. It is not the complete legal health record.[facility]
--- OUTSIDE RECORDS SUMMARY | 2025-01-20 18:25 | XMS_ITS | Encounter Summary ---
Author Organization [employer] Address [address] [facility] 7t [place] [address] Care Team Providers Care Code Number Stamper Name Role Phone Kathy Mcneill MD Primary Care Provider [phone] Shayan Douglas Unavailable Unavailable Reason for Visit * Reason Comments Med Refill Encounter Details Date Type Department Care Team ([facility] st Contact Info) Description 06/08/[address] [facility] [address] [place], [place] [phone] Kathy Mcneill MD [address] [place], [place] [phone] Smoking Social History Tobacco Use Types Packs/Day [...] Description 02/01/2025 2:30 PM EDT Clinical Support [facility] [address] [place] [address] documented as of this encounter Visit Diagnoses Diagnosis Smoking Tobacco use disorder documented in this encounter Additional Health Concerns Assessment Noted Time PHQ-9 Depression Total Score: 0 05/10/20 23 3:34 PM EST documented as of this encounter Care Teams Code Number Stamper Relationship Specialty Start Date End Date Kathy Mcneill MD [address] [place] [phone] PCP - General Family Medicine 01/06/22 Shayan Douglas FNP [address] [place] [address] Nurse Practitioner Family Medicine 04/16/23 documented as of this encounter
--- OUTSIDE RECORDS SUMMARY | 2025-01-20 18:25 | XMS_ITS | Encounter Summary ---
Author Organization [employer] Address [address] [place] [address] 7 [place] [address] Care Team Providers Care Insole Toe Snipping Machine Operator Name Role Phone Kathy Mcneill MD Primary Care Provider Shayan Douglas Unavailable Unavailable Reason for Visit * Reason Onset Date Comments Med Refill 07/22/2024 Encounter Details Date Type Department Care Team (Late st Contact Info) Description 07/22/2024 Refill [facility] [address] [place] [address] Kathy Mcneill MD [address] [place] [address] Social History Tobacco Use Types Packs/Day Years [...] Description 02/01/2025 2:30 PM EDT Clinical Support [facility] [address] [place] [phone] documented as of this encounter Visit Diagnoses Not on filedocumented in this encounter Additional Health Concerns Assessment Noted Time PHQ-9 Depression Total Score: 0 05/10/20 23 3:34 PM EST documented as of this encounter Care Teams Insole Toe Snipping Machine Operator Relationship Specialty Start Date End Date Kathy Mcneill MD [address] [place] [address] PCP - General Family Medicine 01/06/22 Shayan Douglas FNP [address] [place] [address] Nurse Practitioner Family Medicine 04/16/23 documented as of this encounter
--- OUTSIDE RECORDS SUMMARY | 2025-01-20 18:25 | XMS_ITS | Encounter Summary ---
Author Organization [employer] Address [address] [facility] 7t [place] [address] Care Team Providers Care Import/Export Freight Forwarder Name Role Phone Kathy Mcneill MD Primary Care Provider [phone] Shayan Douglas Unavailable Unavailable Reason for Visit * Reason Comments Med Refill Encounter Details Date Type Department Care Team ([facility] st Contact Info) Description 05/15/2024 Refill [facility] [address] [place], [place] [phone] Kathy Mcneill MD [address] [place] [address] Migraine without aura and without status migrainosus, [...] Description 02/01/2025 2:30 PM EDT Clinical Support [facility] [address] [place] [address] documented as of this encounter Visit Diagnoses Diagnosis Migraine without aura and without status migrainosus, not intractable documented in this encounter Additional Health Concerns Assessment Noted Time PHQ-9 Depression Total Score: 0 05/10/20 23 3:34 PM EST documented as of this encounter Care Teams Import/Export Freight Forwarder Relationship Specialty Start Date End Date Kathy Mcneill MD [address] [place] [address] PCP - General Family Medicine 01/06/22 Shayan Douglas FNP [address] [place] [address] Nurse Practitioner Family Medicine 04/16/23 documented as of this encounter
== END 2025-01-20 15:43 | disposition home or self-care (01) ==
PROVIDERS: Physician Assistant Medical; Emergency Provider Emergency Medicine Emergency Medical Services; PCP General Practice
DX: J06.9 Acute upper respiratory infection, unspecified (principal); R06.02 Shortness of breath; I10 Essential (primary) hypertension; R51.9 Headache, unspecified; E03.9 Hypothyroidism, unspecified; M10.9 Gout, unspecified; Z79.899 Other long term (current) drug therapy
CPT/HCPCS: 71046; 87502; 87635; 87651; 99282; 99283

== ENCOUNTER → 2025-01-20 11:54 | Outpatient (BNV) | payer MEDICAID, SELFPAY | PROVIDERS: PCP General Practice; Visit Provider Radiology Diagnostic Radiology | DX: R06.02 Shortness of breath (principal) | CPT/HCPCS: 71046 ==

== ENCOUNTER 2025-03-08 13:42 | Outpatient (REF) | payer MEDICAID, SELFPAY ==
--- OUTSIDE RECORDS SUMMARY | 2025-03-04 14:30 | XMS_ITS | Encounter Summary ---
Author Organization [email or web address] Address [address] [facility] 7t [place] [address] Care Team Providers Care Entrepreneurship Program Director Name Role Phone Kathy Mcneill MD Primary Care Provider [phone] Shayan Douglas PLAYER DEVELOPMENT EXECUTIVE Unavailable Unavailable Virgilio Vazquez RN Unavailable [phone] Chrissy Villalobos Unavailable Reason for Visit * Reason Comments Hypertension Encounter Details Date Type Department Care Team (Latest Contact Info) Description 03/04/2025 2:30 PM EDT Clinical Support [facility] [address] [place] [address] Gabriella Obrien, RN [address] [place], [place] [phone] Secondary hypertension Social History Tobacco Use Types [...] documented as of this encounter Care Teams Entrepreneurship Program Director Relationship Specialty Start Date End Date Kathy Mcneill MD [address] [place] [address] PCP - General Family Medicine 01/06/22 Shayan Douglas FNP [address] [place] [address] Nurse Practitioner Family Medicine 04/16/23 Virgilio Vazquez, CILTALLI [address] [place] [address] Registered Nurse Family Medicine 01/21/25 Chrissy Villalobos 01/21/25 documented as of this encounter
--- OUTSIDE RECORDS SUMMARY | 2025-03-08 17:23 | XMS_ITS | Encounter Summary ---
Author Organization [employer] Address [address] [facility] 7t [place] [address] Care Team Providers Care Medical Chemist Name Role Phone Kathy Mcneill MD Primary Care Provider [phone] Shayan Douglas Unavailable Unavailable Virgilio Vazquez RN Unavailable [phone] Chrissy Villalobos Unavailable Encounter Details Date Type Department Care Team (Latest Contact Info) Description 03/04/2025 Travel Social History Tobacco Use Types Packs/Day [...] documented as of this encounter Care Teams Medical Chemist Relationship Specialty Start Date End Date Kathy Mcneill MD [address] [place] [address] PCP - General Family Medicine 01/06/22 Shayan Douglas FNP [address] [place] [address] Nurse Practitioner Family Medicine 04/16/23 Virgilio Vazquez, RN [address] [place] [address] Registered Nurse Family Medicine 01/21/25 Chrissy Villalobos 01/21/25 documented as of this encounter
--- OUTSIDE RECORDS SUMMARY | 2025-03-08 17:23 | XMS_ITS | Clinical Summary ---
Author Organization [facility] Address [address] [place], [place] [phone] Phone Care Team Providers Care Bark Skinner Name Role Phone Dyaan Diez STAFF NURSE ANESTHETIST Primary Care Provider Unav ailable Social History Tobacco Use Types Packs/Day Years Used Date Smoking Tobacco: Never Assessed Comments Unknown Sex and Gender Information Value Date Recorded Sex Assigned at Not on file Legal Sex Female 2:15 PM EST Gender Identity Not on file Sexual Orientation Not on file Plan of Treatment Not on file Medical Devices Not on file Insurance [facility] C3 ACO [facility] C3 ACO [facility] C3 ACO [facility] C3 ACO [facility] C3 ACO [facility] C3 ACO [facility] C3 ACO [facility] C3 ACO Care Teams Bark Skinner Relationship Specialty Start Date End Date Dayan Diez NP PCP - General Family Medicine 03/27/21 Additional Source Comments The information contained in this document represents components of the legal health record. It is not the complete legal health record.[facility]
--- OUTSIDE RECORDS SUMMARY | 2025-03-08 17:23 | XMS_ITS | Clinical Summary ---
Author Organization [employer] Address [address] [facility] 7[address] [place] [address] Care Team Providers Care Art Display Maker Name Role Phone Kathy Mcneill MD Primary Care Provider [phone] Shayan Douglas Unavailable Unavailable Virgilio Vazquez RN Unavailable [phone] Chrissy Villalobos Unavailable Allergies Active Allergy Reactions Criticality Noted [...] 12 HOURS DIRECTED 30 patch 1 Active levothyroxine (Synthroid, Levoxyl) 125 MCG tabletIndication s:Hypothyroidism , unspecified type TAKE 1 TABLET BY MOUTH EVERY MORNING 90 tablet 3 Active amLODIPine (Norvasc) 10 MG tabletIndication s:Primary hypertension TAKE 1 TABLET BY MOUTH EVERYDAY AT NOON (BLOOD PRESSURE) 90 tablet 3 Active D3 Super Strength 50 MCG [...] g Active ergocalciferol (Vitamin D2) 1.25 MG (13170 UT) capsule Take 1 capsule (1.25 mg) [...] glass of water. 60 tablet 1 Active gabapentin (Neurontin) 100 MG capsuleIndicatio ns:Migraine without aura and without status migrainosus, not intractable TAKE 1 CAPSULE BY MOUTH AT NOON, EVENING, AND BEDTIME 90 capsule 3 Active Blood Pressure kitIndications:S econdary hypertension 1 each Once per day. Take BP Daily 1 kit Active Blood Pressure kit 1 each Once per day. Take BP Daily 1 kit 025 2024 Discontinued(R eorder (will not trigger notification to Pharmacy)) gabapentin (Neurontin) 100 MG capsuleIndicatio ns:Migraine without aura and without status migrainosus, not intractable TAKE 1 CAPSULE BY MOUTH AT NOON, EVENING, AND BEDTIME 90 capsule 3 025 2024 Discontinued Active Problems Problem Noted Date Diagnosed [...] results and refer for any abnormal to americanization teacher for biopsy Cigarette nicotine dependence without complicati [...] AM EDT): [place] [facility] Reassuring US in 10/2021, with simple cysts in L breast Continue q6 month followup Assessment & Plan (05/02/2022 12:11 PM EST): [place] [facility] Reassuring US in 10/2021, with simple cysts Migraines 03/31/2022 Vitamin D deficiency 03/31/2022 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 Assessment & Plan (05/22/2024 8:33 AM EST): Continue conservative management Assessment & Plan (07/31/2022 11:18 AM EDT): With ICA stent and resolved (according [place] CT[facility] [place] [facility] aneurysm Will have pt return to neurovascular [...] Resolved Date 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 12/28/2022 04/08/2023 Myocardial infarction 03/31/20222024 Assessment & Plan (07/31/2022 11:19 AM EDT): NSTEMI, continue Bblocker, statin, ASA Encounters Date Type Department Care Team Description 03/04/2025 2:30 PM EDT Clinical Support [address] [phone] Gabriella Obrien RN Secondary hypertension 03/04/[address] [phone] Gabriella Obrien RN Secondary hypertension 03/04/2025 Travel 02/17/2025 9:30 AM EDT Clinical Support [address] [phone] Sophia Ornelas RN Secondary hypertension [I15.9] 02/17/2025 Patient Outreach [address] [phone] Kathy Mcneill MD Care Coordination ([facility] Chrissy Villalobos telephone call outreach) 02/17/2025 Travel 02/16/2025 Patient Outreach [address] [phone] Kathy Mcneill MD 02/16/[address] [phone] Kathy Mcneill MD Nurse Triage 02/11/[address] [phone] Kathy Mcneill MD Migraine without aura and without status migrainosus, not intractable 02/10/2025 Refill [facility] [address] [place], [place] [phone] Kathy Mcneill MD Migraine without aura and without status migrainosus, not intractable 02/04/2025 Patient Outreach [address] [phone] Kathy Mcneill MD Care Coordination ([facility] Chrissy Villalobos telephone call outreach) 01/27/2025 Refill [facility] [address] [place] [address] Kathy Mcneill MD Migraine without aura and without status migrainosus, not intractable 01/21/2025 Patient Outreach [address] [phone] Kathy Mcneill MD Care Coordination ([facility] Chrissy Villalobos chart review ) 01/21/2025 Patient Outreach [address] [phone] Kathy Mcneill MD Care Coordination ([facility]- chart review) 01/21/2025 Patient Outreach [address] [phone] Kathy Mcneill MD 01/20/2025 Orders Only [facility] External Provider, [facility] 12/30/2024 3:15 PM EDT Office Visit [address] [phone] Kathy Mcneill MD Secondary hypertension (Primary Dx); Arterial fibromuscular dysplasia (CMS/HCC); Carotid artery aneurysm (CMS/HCC); History of myocardial infarction 12/29/[address] [address] Kathy Mcneill MD chart prep 12/29/2024 Telephone [facility] [address] [place] [address] Kathy Mcneill MD Chart Prep 12/29/2024 Travel 12/21/2024 1:30 PM EDT Office Visit [facility] [address] [place] [address] Boris, Shara, OD Myelinated retinal nerve fiber layer (Primary Dx); Optic nerve asymmetry, right; Cortical age-related cataract of both eyes; Presbyopia 12/21/2024 Travel 12/17/2024 3:15 PM EDT Office Visit [address] [phone] Mihaela Ochoa CNP Plantar wart of right foot (Primary Dx) 12/17/2024 Travel 12/17/2024 Telephone [facility] [address] [place] [address] Kathy Mcneill MD Nurse Triage 12/17/2024 Refill [facility] [address] [place] [address] Kathy Mcneill MD 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 [...] Pulse 56 03/04/2025 2:55 PM EDT Temperature 36.3 C (97.4 F) 12/30/2024 3:04 PM EDT Respiratory Rate 18 02/17/2025 10:11 AM EDT Oxygen Saturation 98% 02/17/2025 10:11 AM EDT Inhaled Oxygen Concentration - - Weight 58.7 kg (129 lb 4.8 oz) 12/30/2024 3:04 P M EDT Height 157.5 cm (5' 2 ) 12/30/2024 3:04 PM EDT Body Mass Index 23.65 12/30/2024 3:04 PM EDT Plan of Treatment Health Maintenance Due Date Last Done Comments CT Colonography 1975 FIT DNA/Cologuard 1975 FIT 1975 FOBT 1975 Sigmoidoscopy 1975 Family Planning (PISQ) 1988 Hepatitis B Vaccines (1 of 3 - 19+ 3-dose series) 1992 Pneumococcal Vaccine: 50+ Years (1 of 2 - PCV) 1992 COVID-19 Vaccine (4 - season) 2025 03/02/2021, 07/16/2020, 06/25/2020 Influenza [...] Procedure Name Priority Date/Time Associated Diagnosis Comments AMB REFERRAL TO SLEEP MEDICINE Routine 02/03/2025 Hypersomnia COVID-19 ID NOW (SANTOYO) Routine 01/20/2025 12:26 [...] Recently Relevant to Health Maintenance Results * Referral to Sleep Medicine (02/03/2025) [facility] OUTPATIENT REFERRAL ORDER EVAN Final Result * Influenza A B2 ID NOW (Santoyo) (01/20/2025 12:26 PM EDT) IDNOW SERIAL# [id number] [facility] Influenza A Negative Negative [facility] Influenza B2 Negative Negative [facility] Influenza A B2 Note See Note [facility] Comment:The Santoyo ID NOW In [...] PM EDT Generic External Data Provider LAB MICROBIOLOGY - GENERAL ORDERABLES Final Result [facility] [address] [place] [phone] * COVID-19 ID NOW (SANTOYO) (01/20/2025 12:26 PM EDT) IDNOW SERIAL# [id number] [facility] COVID-19 TEST Negative Negative [facility] COVID-19 NOTE See Note [facility] Comment: Results are for the identification of SARS-CoV2 RNA. TheSARS-CoV2 RNA is generally detectable in respiratory samplesduring the acute phase of infection. Positive results areindicative of the presence of SARS-CoV-2 RNA; clinicalcorrelation with patient history and other diagnosticinformation is necessary to determine patient infectionstatus. Positive results do not rule out bacterial infectionor co- infection with other viruses.Testing facilities within the [facility] and [facility] are required to report all positive results [...] use by authorized laboratories.Testing performed on the Junar NOW utilizing NAAT. 01/20/2025 12:2 6 PM EDT 01/20/2025 12:29 PM EDT us Generic External Data Provider LAB MOLECULAR REFUGIO GNOSTICS ORDERABLES Final Result [facility] [address] [place] [phone] * Strep A Nucleic Acid (01/20/2025 12:25 PM EDT) IDNOW SERIAL# [id number] [facility] Strep A Nucleic Acid Negative Negative [facility] Comment:All test results mus t [...] GENERAL ORDERABLES Final Result Performing Organization Address City/State/[facility] Co de Phone Number [facility] [address] [place] [phone] * XR Chest 2 Views (01/20/2025 12:25 PM EDT) Anatomical Region Laterality Modality Chest Radiographic Noa ging 01/20/2025 12:2 5 PM EDT Narrative 01/20/2025 12:37 PM EDT [address] [address] XRay Report Signed Patient: Mulu Balderas MR#: [id number] : 1975 Acct:[id number] Age/Sex: 49 / F ADM Date: 01/20/25 Loc: HO.ED Attending Dr: Ordering Physician: Fernanda Garcia Date of Service: 01/20/25 Procedure(s): XR chest 2V Accession Number(s): [id number] cc: Kathy Mcneill; Fernanda Garcia Reason for [...] 01/20/25 1234 DD/ 1225 TD/TT: 01/20/25 1229 Lens Grinder Apprentice: Procedure Note Donotuseinterpreter, Image - 01/20/[address] [address] XRay Report Signed Patient: Mulu BalderasMR#: [id number] : 1975Acct:[id number] Age/Sex: 49 / FADM Date: 01/20/25 Loc: HO.ED Attending Dr: Ordering Physician: Fernanda Garcia Date of Service: 01/20/25 Procedure(s): XR chest 2V Accession Number(s): [id number] cc: Kathy Mcneill; Fernanda Garcia Reason for [...] MDin OV> 01/20/25 1234 DD/ 1225 TD/TT: 01/20/259 Lens Grinder Apprentice: [facility] External Provider IMG XR PROCEDURES Final Result * (ABNORMAL) Vitamin D, 25-Hydroxy, Total, Immunoassay (12/29/2024 1:49 PM EDT) Vitamin D 25-OH Total 25.2(L) >30 ng/mL [facility] Comment: Health Based Reference Values*< 20 ng/mL Zvdgobxyf97-04 ng/mL Insufficient> 30 ng/mL Sufficient*Holick MF. N Engl J Med. 2007;357:266-280There is no [...] 1:49 PM EDT 12/29/2024 4:17 PM EDT [facility] LAB BLOOD ORDERABLES Veena l Result [facility] [address] [place] [phone] * (ABNORMAL) Vitamin B12/Folate, Serum Panel (12/29/2024 1:49 PM EDT) Vitamin B12 184(L) 200 - 900 pg/mL [facility] Comment:NORMAL 200-900 PG/ML INDETERMINATE 160-199 PG/ML DEFICIENT < 160 PG/ML Folate 9.8 > or = 4.0 ng/mL [facility] Comment:Reference Values:> o r = 4.0 ng/mL< 4.0 ng/mL suggests folate deficiency Methotrexate, aminopterin and folinic acid(leucovorin) are chemotherapeutic agents whose molecularstructures are similar to folate; therefore, the Architectfolate assay cannot be used for patients using these drugs. Blood Venous blood specimen / Unknown 12/29/2024 1:49 PM EDT 12/29/2024 4:17 PM EDT [facility] DAIRY INSPECTOR LAB BLOOD ORDERABLES Veena l Result Performing Organization Address City/[facility]/ZIP Co de Phone Number [facility] [address] [place] [phone] * TSH W/Reflex to FT4 (12/29/2024 1:49 PM EDT) TSH reflex Free T4 3.21 0.32 - 4.0 uIU/mL [facility] Blood Venous blood specimen / Unknown 12/29/2024 1:49 PM EDT 12/29/2024 4:17 PM EDT [facility] DAIRY INSPECTOR LAB BLOOD ORDERABLES Veena l Result Performing Organization Address [facility] Co de Phone Number [facility] [address] [place] [phone] * CBC auto differential (12/29/2024 1:49 PM EDT) White Blood Count 7.7 4.8 - 10.8 X10*3/uL [facility] Red Blood Count 4.41 4.20 - 5.50 X10*6/uL [facility] Hemoglobin 13.7 12.0 - 16.0 g/dl [facility] Hematocrit 41.2 37.0 - 47.0 % [facility] Mean Corpuscular Volume 93.4 80.0 - 98.0 fL [facility] Mean Corpuscular Hemoglobin 31.1 27.0 - 33.0 pg [facility] Mean Corpuscular HGB Conc 33.3 31.0 - 35.0 g/dl [facility] Red Cell Distribution Width 12.6 11.0 - 16.0 % [facility] Platelet Count 181 160 - 400 X10*3/uL [facility] Mean Platelet Volume 11.6 9.4 - 12.3 fL [facility] Neutrophils Percent Auto 55.0 45 - 73 % [facility] Imm Gran Pct Auto 0.4 0.0 - 0.4 % [facility] Lymphocytes Percent Auto 35.2 20 - 40 % [facility] Monocytes Percent Auto 7.9 2 - 11 % [facility] Eosinophils Percent Auto 0.8 0 - 4 % [facility] Basophils Percent Auto 0.7 0 - 2 % [facility] NRBC Pct Auto 0.0 0.0 - 0.2 /100WBC [facility] Neutrophils Absolute Auto 4.2 2.0 - 8.3 x10*3/uL [facility] Imm Gran Abs Auto 0.03 0.00 - 0.03 X10*3/uL [facility] Lymphocytes Absolute Auto 2.7 1.2 - 4.9 X10*3/uL [facility] Monocytes Absolute Auto 0.6 0.1 - 1.2 X10*3/uL [facility] Eosinophils Absolute Auto 0.1 0.0 - 0.4 X10*3/uL [facility] Basophils Absolute Auto 0.1 0.0 - 0.2 X10*3/uL [facility] NRBC Abs Auto 0.000 0.0 - 0.012 X10*3/uL [facility] Blood Venous blood specimen / Unknown 12/29/2024 1:49 PM EDT 12/29/2024 4:17 PM EDT [facility] LAB BLOOD ORDERABLES Veena l Result [facility] [address] [place] [phone] * Iron And Total Iron Binding Capacity (12/29/2024 1:49 PM EDT) Iron 112 30 - 160 mcg/dL [facility] Total Iron Binding Capacity 259 228 - 428 mcg/dL [facility] Percent Iron Saturation 43 15 - 50 % [facility] Unsaturated Iron Binding 147 ug/dL [facility] Blood Venous blood specimen / Unknown 12/29/2024 1:49 PM EDT 12/29/2024 4:17 PM EDT [facility] LAB BLOOD ORDERABLES Veena l Result [facility] [address] [place] [phone] [phone] * (ABNORMAL) Comprehensive Metabolic Panel (12/29/2024 1:49 PM EDT) Sodium 144 135 - 145 mmol/L [facility] Potassium 4.2 3.3 - 5.1 mmol/L [facility] Chloride 110(H) 96 - 108 mmol/L [facility] Carbon Dioxide 28 22 - 29 mmol/L [facility] Anion Gap 10(L) 12 - 20 [facility] Urea Nitrogen (BUN) 11 9 - 16 mg/dL [facility] Creatinine, Serum 0.68 0.5 - 1.4 mg/dL [facility] Estimated Glomerular Filt Rate >60 [facility] Comment:Chronic Kidney Disea se: Estimated GFR < 60 mL/min/1.80q5Hoxwer Kidney Disease: Estimated GFR < 15 mL/min/1.73m2 Glucose 81 60 - 115 mg/dL [facility] Calcium 9.7 8.4 - 10.2 mg/dL [facility] Bilirubin, Total 0.3 0.0 - 1.0 mg/dL [facility] Aspartate Amino Transferase 25 5 - 31 U/L [facility] Alanine Aminotransferase 21 0 - 31 U/L [facility] Total Protein 7.0 6.5 - 8.0 g/dL [facility] Albumin Level 4.4 3.5 - 5.0 g/dL [facility] Alkaline Phosphatase 87 39 - 117 U/L [facility] Blood Venous blood specimen / Unknown 12/29/2024 1:49 PM EDT 12/29/2024 4:17 PM EDT [facility] LAB BLOOD ORDERABLES Veena tejeda Result [facility] [address] [place], [place] [phone] * OCT, Optic Nerve - OU - Both Eyes (12/21/2024 1:30 PM EDT) Shara Morris, OD - 01/18/2025 2:37 PM EDT Images [...] (02/20/2024 11:14 AM EDT) Colonoscopy Normal Normal uYe Cervantes - 02/20/2024 11:14 AM EDT Recommended 10 years see external hospital admission note on 02/20/2024 Historical Provider HEALTH MAINTENANCE Edited Result - Final * HPV mRNA E6/E7 w/Reflex to HPV Genotypes 16, 18/45 (05/10/2023 4:56 PM EST) HPV nRNA E6/E7 Not Detected Not Detected [facility] Comment:Methodology: Transcr iption-Mediated AmplificationThis assay detects E6/E7 viral messenger RNA (mRNA) from 14high-risk HPV types (16,18,31,33,35,39,45,51,52,56,58,59,66,68).Cervical sources are required for HPV testing.If a vaginal source from a patient who has had atotal hysterectomy with removal of cervix wassubmitted, please contact the testing laboratoryfor alternative testing options.For additional information, please refer tohttp://education.[employer]/faq/XVO290v1(This link if provided for information/educational purposes only.)THIS TEST WAS PERFORMED AT:[facility] [place] [phone] CRUZ MD HPV mRNA E6/E7 [facility] HPV 16 RNA TNP [facility] HPV 18/45 RNA [facility] 05/10/2023 4:56 PM EST 05/14/2023 8:00 AM EST Kathy Mcneill MD LAB CYTOLOGY ORDERABLES Final Result Performing Organization Address City/State/[facility] Co de Phone Number [facility] [address] [place] [phone] * Pap Smear (05/10/2023 4:56 PM EST) 05/10/2023 4:56 PM EST 05/14/2023 8:00 AM EST Narrative [facility] - 05/17/2023 1:44 PM EST ----- ------- Name: Mulu Balderas Age/Sex: 48/F : 1975 Unit#: [id number] Attend Dr: Kathy Mcneill Re05/10/23 Status: DEP REF [facility] Disch: ----- ------- SPEC : [id number] RECD: 05/14/23 STATUS: MAGDALENA CARREON NUM: [id number] NORTH: 05/10/[address] [facility] [address]: Kathy Mcneill ENTERED: 05/14/23 SP TYPE: Pap Smr OTHR DR: ORDERED: Pap Smear Interpretation Satisfactory for evaluation. Negative for intraepithelial lesion or malignancy. HPV mRNA E6/E7: NOT DETECTED This assay detects E6/E7 viral messenger RNA (mRNA) from 14 high-risk HPV types (16, 18, 31, 33, 35, 39, 45, 51, 52, 56, 58, 59, 66, 68) HPV testing performed by [facility], [place], [place]. See reference laboratory portion of the EMR for entire report. Clinical Information LMP: Menopause Previous PAP test: Unknown date/findings Material Received ThinPrep-Cervical ----- ------- Signed (signature on file) INNA Cobb (ASC) 05/17/23 1344 ----- ------- END OF REPORT Kathy Mcneill MD LAB CYTOLOGY ORDERABLES Final Result Performing Organization Address [facility] Co de Phone Number [facility] [address] [place] [phone] * Hepatitis C Ab (04/08/2023 2:44 PM EST) Hepatitis C Antibody Nonreactive Nonreactive [facility] Comment:Antibodies to HCV no t detected; does not exclude early acuteHCV infection. Blood Venous blood specimen / Unknown 04/08/2023 2:44 PM EST 04/08/2023 4:15 PM EST Kathy Mcneill MD LAB BLOOD ORDERABLES Final Res ult Performing Organization Address [facility] de Phone Number [facility] [address] [place] [phone] * HIV-1/2 Antigen and Antibodies, Fourth Generation, with Reflexes (04/08/2023 2:44 PM EST) Pathologist [facility] [place] HIV AB/AG Nonreactive Nonreactive [facility] Comment:HIV-1 p24 Ag and/or HIV-1/HIV-2 Ab not detected.A test result that is nonreactive does not exclude thepossibility of exposure to or infection with HIV-1 and/orHIV-2. Nonreactive results in this assay for individualswith prior exposure to HIV-1 and/or HIV-2 may be due toantigen and antibody levels that are below the limit ofdetection of this assay.The [employer] HIV Ag/Ab Combo assay result andsupplemental assay results should be interpreted inconjunction with the patient's clinical presentation,history and other laboratory results. If the results areinconsistent with clinical evidence, additional testing issuggested to confirm the result. Blood Venous blood specimen / Unknown 04/08/2023 2:44 PM EST 04/08/2023 4:15 PM EST Kathy Mcneill MD LAB BLOOD ORDERABLES Final Res ult [facility] [address] [place] [phone] [phone] * (ABNORMAL) LIPID PANEL, STANDARD (01/18/2021 [...] factors. LDL-C is now calculated using the Johnnie-Daniella calculation, which is a validated novel method providing better accuracy than the Friedewald equation in the estimation of LDL-C. Johnnie SS et al. LAURENT. 2013;310(19): 0368-2783 (http://education.[employer]/faq/BAF465) Non-HDL Cholesterol 71 <130 mg/dL (calc) [facility] Comment: For patients with diabetes plus 1 major ASCVD risk factor, treating to a non-HDL-C goal of <100 mg/dL (LDL-C of <70 mg/dL) is considered a therapeutic option. Triglycerides 110 <150 mg/dL [facility] 01/18/2021 2:59 PM EDT us Dayan Diez CHIEF ENGINEER'S HELPER LAB BLOOD ORDERABLES Final Res ult [facility] [address] from Last 3 Months or Most Recently Relevant to Health Maintenance [facility] C[facility] Care Teams Art Display Maker Relationship Specialty Start Date End Date Kathy Mcneill MD [address] [place], [place] PCP - General Family Medicine 01/06/22 Shayan Douglas FNP [address] [place], [place] Nurse Practitioner Family Medicine 04/16/23 Virgilio Vazquez, RN [address] [place] [address] Registered Nurse Family Medicine 01/21/25 Chrissy Villalobos 01/21/25
--- OUTSIDE RECORDS SUMMARY | 2025-03-08 17:23 | XMS_ITS | Encounter Summary ---
Author Organization [employer] Address [address] [facility] 7t [place] [address] Care Team Providers Care Upholsterer Helper Name Role Phone Kathy Mcneill MD Primary Care Provider [phone] Shayan Douglas SAMPLE SAWYER Unavailable Unavailable Virgilio Vazquez RN Unavailable [phone] Chrissy Villalobos Unavailable Reason for Visit * Reason Comments Med Refill Encounter Details Date Type Department Care Team (Late st Contact Info) Description 01/27/2025 Refill [facility] [address] [place] [address] Kathy Mcneill MD [address] [place] [address] Migraine without aura and without status migrainosus, [...] documented as of this encounter Care Teams Upholsterer Helper Relationship Specialty Start Date End Date Kathy Mcneill MD [address] [place] [address] PCP - General Family Medicine 01/06/22 Shayan Douglas FNP [address] [place], [place] Nurse Practitioner Family Medicine 04/16/23 Virgilio Vazquez, CITLALLI [address] [place] [phone] Registered Nurse Family Medicine 01/21/25 Chrissy Villalobos 01/21/25 documented as of this encounter
--- OUTSIDE RECORDS SUMMARY | 2025-03-08 17:23 | XMS_ITS | Encounter Summary ---
Author Organization [employer] Address [address] [facility] [address] [place] [address] Care Team Providers Care Director Selection And Administration Name Role Phone Kathy Mcneill MD Primary Care Provider [phone] Shayan Douglas TOOL CRIB LEAD Unavailable Unavailable Virgilio Vazquez RN Unavailable Chrissy Villalobos Unavailable Reason for Visit * Reason Comments Med Refill Encounter Details Date Type Department Care Team (Late st Contact Info) Description 05/15/2024 Refill [facility] [address] [place] [address] Kathy Mcneill MD [address] [place] [address] Migraine without aura and without status migrainosus, [...] as of this encounter Care Teams Director Selection And Administration Relationship Specialty Start Date End Date Kathy Mcneill MD [address] [place] [address] PCP - General Family Medicine 01/06/22 Shayan Douglas FNP [address] [place] [address] Nurse Practitioner Family Medicine 04/16/23 Virgilio Vazquez, CITLALLI [address] [phone] Registered Nurse Family Medicine 01/21/25 Chrissy Villalobos 01/21/25 documented as of this encounter
--- OUTSIDE RECORDS SUMMARY | 2025-03-08 17:23 | XMS_ITS | Encounter Summary ---
Author Organization [employer] Address [address] [facility] 7t [place] [address] Care Team Providers Care Tunnel Kiln Repairer Name Role Phone Kathy Mcneill MD Primary Care Provider [phone] Shayan Douglas Unavailable Unavailable Virgilio Vazquez RN Unavailable [phone] Chrissy Villalobos Unavailable Reason for Visit * Reason Onset Date Comments Med Refill 03/04/2025 Encounter Details Date Type Department Care Team (Late st Contact Info) Description 03/04/2025 Refill [facility] MEDICINE [address] [place] [address] Gabriella Obrien, RN [address] [place], [place] [phone] Secondary hypertension Social History Tobacco Use Types [...] encounter Miscellaneous Notes * Telephone Encounter - Gabriella Obrien RN - 03/04/2025 3:00 PM EDT Pt. Requesting new BP kit. She was rushing to today's appointment and wanted to bring her home monitor but dropped and broke it while hurrying. Rx pended documented in this encounter Plan of Treatment Not on file documented as of this encounter Visit Diagnoses Diagnosis Secondary hypertension Other secondary hypertension, unspecified documented in this encounter Additional Health Concerns Assessment Noted Time PHQ-9 Depression Total Score: 17 025 3:16 PM EDT documented as of this encounter Care Teams Tunnel Kiln Repairer Relationship Specialty Start Date End Date Kathy Mcneill MD [address] [place] [address] PCP - General Family Medicine 01/06/22 Shayan Douglas FNP [address] [place] [address] Nurse Practitioner Family Medicine 04/16/23 Virgilio Vazquez, RN [address] [place] [address], [place] [address] Registered Nurse Family Medicine 01/21/25 Chrissy Villalobos 01/21/25 documented as of this encounter
--- OUTSIDE RECORDS SUMMARY | 2025-03-08 17:23 | XMS_ITS | Encounter Summary ---
Author Organization [employer] Address [address] [facility] 7t [place] [address] Care Team Providers Care Metal Fabrication Supervisor Name Role Phone Kathy Mcneill MD Primary Care Provider [phone] Shayan Duoglas Unavailable Unavailable Virgilio Vazquez RN Unavailable [phone] Chrissy Villalobos Unavailable Encounter Details Date Type Department Care Team (Late st Contact Info) Description 09/22/2024 Orders Only [facility] MED & PEDS [address] [place] [address] Provider, MD Lane Social History Tobacco Use [...] AM EDT Narrative 09/24/2024 10:17 AM EDT [facility] [address] [place] [address] Ultrasound Report Signed Patient: Mulu Balderas MR#: [id number] : 1975 Acct:[id number] Age/Sex: 49 / F ADM Date: 09/24/24 Loc: HO.MAMMO Attending Dr: Tony Osuna MD Ordering Physician: Tony Osuna MD Date of Service: 09/24/24 Procedure(s): US breast BI limited mamm only Accession Number(s): [id number] cc: Kathy Mcneill; Tony Osuna MD EXAMINATION: [...] tissue. There is no sonographic abnormality. Left: [place] marker in the upper outer breast posterior [...] 09/24/24 1014 DD/ 0930 TD/TT: 09/24/24 1007 Railroad Switchman: Procedure Note Donotuseinterpreter, Image - 09/28/2024 [place] [facility] [address] [place] [address] Ultrasound Report Signed Patient: Meche Balderas#: [id number] : 1975Acct:[id number] Age/Sex: 49 / FADM Date: 09/24/24 Loc: HO.MAMMO Attending Dr: Tony Osuna MD Ordering Physician: Tony Osuna MD Date of Service: 09/24/24 Procedure(s): US breast BI limited mamm only Accession Number(s): [id number] cc: Kathy Mcneill; Tony Osuna MD EXAMINATION: [...] tissue. There is no sonographic abnormality. Left: [place] marker in the upper outer breast posterior [...] 09/24/24 1014 DD/ 0930 TD/TT: 09/24/24 1007 Railroad Switchman: us [facility] External Provider IMG US PROCEDURES Edited Result - Final * BI Mammogram Diagnostic Tomosynthesis Bilateral (09/24/2024 9:00 AM EDT) Anatomical Region Laterality Modality Breast Bilateral Mammography 09/24/2024 9:00 AM EDT Narrative 09/24/2024 10:17 AM EDT [facility] [address] [place] [address] Mammography Report Signed Patient: Mulu Balderas MR#: [id number] : 1975 Acct:[id number] Age/Sex: 49 / F ADM Date: 09/24/24 Loc: ALOK Attending Dr: Tony Osuna MD Ordering Physician: Tony Osuna MD Results: 2Beni gn Findings Date of Service: 09/24/24 Follow Up: 1 Year From Orig ina Mammogram Procedure(s): MM tomosynthesis diagnostic BI Accession Number(s): [id number] cc: Kathy Mcneill; Tony Osuna MD EXAMINATION: [...] tissue. There is no sonographic abnormality. Left: [place] marker in the upper outer breast posterior [...] 09/24/24 1014 DD/ 0900 TD/TT: 09/24/24 0934 Railroad Switchman: Procedure Note Donotuseinterpreter, Image - 09/28/2024 [place] [facility] [address] [place] [address] Mammography Report Signed Patient: Meche Balderas#: [id number] : 1975Acct:[id number] Age/Sex: 49 / FADM Date: 09/24/24 Loc: HO.MAMMO Attending Dr: Tony Osuna MD Ordering Physician: Tony Osuna MDResults: 2Beni gn Findings Date of Service: 09/24/24Follow Up: 1 Year From Orig ina Mammogram Procedure(s): MM tomosynthesis diagnostic BI Accession Number(s): [id number] cc: Kathy Mcneill; Tony Osuna MD EXAMINATION: [...] tissue. There is no sonographic abnormality. Left: [place] marker in the upper outer breast posterior [...] 09/24/24 1014 DD/ 0900 TD/TT: 09/24/24 0934 Railroad Switchman: [facility] External Provider IMG BI PROCEDURES Edited Result [...] documented as of this encounter Care Teams Metal Fabrication Supervisor Relationship Specialty Start Date End Date Kathy Mcneill MD [address] [place] [address] PCP - General Family Medicine 01/06/22 Shayan Douglas FNP [address] [place] [address] Nurse Practitioner Family Medicine 04/16/23 Virgilio Vazquez, CITLALLI [address] [place] [address] Registered Nurse Family Medicine 01/21/25 Chrissy Villalobos 01/21/25 documented as of this encounter
--- OUTSIDE RECORDS SUMMARY | 2025-03-08 17:23 | XMS_ITS | Encounter Summary ---
Author Organization [employer] Address 75 [facility] 7t [place] [address] Care Team Providers Care Client Insights Consultant Name Role Phone Kathy Mcneill MD Primary Care Provider [phone] Shayan Douglas Unavailable Unavailable Virgilio Vazquez RN Unavailable [phone] Chrissy Villalobos Unavailable Reason for Visit * Reason Comments Med Refill Encounter Details Date Type Department Care Team (Late st Contact Info) Description 06/17/2024 Refill [facility] MEDICINE [address] [place] [address] Kathy Mcneill MD [address] [place], [place] [phone] Smoking Social History Tobacco Use Types Packs/Day [...] documented as of this encounter Care Teams Client Insights Consultant Relationship Specialty Start Date End Date Kathy Mcneill MD [address] [place] [address] PCP - General Family Medicine 01/06/22 Shayan Douglas FNP [address] [place] [address] Nurse Practitioner Family Medicine 04/16/23 Virgilio Vazquez, CITLALLI [address] [place] [address] Registered Nurse Family Medicine 01/21/25 Chrissy Villalobos 01/21/25 documented as of this encounter
--- OUTSIDE RECORDS SUMMARY | 2025-03-08 17:23 | XMS_ITS | Encounter Summary ---
Author Organization [employer] Address 75 [facility] 7t [place] [address] Care Team Providers Care Data Reduction Technician Name Role Phone Kathy Mcneill MD Primary Care Provider [phone] Shayan Douglas STRATEGIC PARTNERSHIP SPECIALIST Unavailable Unavailable Virgilio Vazquez RN Unavailable [phone] Chrissy Villalobos Unavailable Reason for Visit * Reason Comments Med Refill Encounter Details Date Type Department Care Team (Late st Contact Info) Description 12/28/2023 Refill [facility] MED & PEDS [address] [place] [address] Kathy Mcneill MD [address] [place] [address] Migraine without aura and without status migrainosus, [...] as of this encounter Care Teams Data Reduction Technician Relationship Specialty Start Date End Date Kathy Mcneill MD [address] [place] [address] PCP - General Family Medicine 01/06/22 Shayan Douglas FNP [address] [place] [address] Nurse Practitioner Family Medicine 04/16/23 Virgilio Vazquez, CITLALLI [address] [place] [address] Registered Nurse Family Medicine 01/21/25 Chrissy Villalobos 01/21/25 documented as of this encounter
--- OUTSIDE RECORDS SUMMARY | 2025-03-08 17:23 | XMS_ITS | Encounter Summary ---
Author Organization [employer] Address [address] [facility] 7t [place] [address] Care Team Providers Care Sales Service Technician Name Role Phone Kathy Mcneill MD Primary Care Provider [phone] Shayan Douglas Unavailable Unavailable Virgilio Vazquez RN Unavailable [phone] Chrissy Villalobos Unavailable Encounter Details Date Type Department Care Team (Late st Contact Info) Description 02/11/2025 Refill [facility] MEDICINE [address] [place] [address] Kathy Mcneill MD [address] [place] [address] Migraine without aura and without status migrainosus, [...] as of this encounter Care Teams Sales Service Technician Relationship Specialty Start Date End Date Kathy Mcneill MD [address] [place] [address] PCP - General Family Medicine 01/06/22 Shayan Douglas FNP [address] [place] [address] Nurse Practitioner Family Medicine 04/16/23 Virgilio Vazquez, RN [address] [place] [address] Registered Nurse Family Medicine 01/21/25 Chrissy Villalobos 01/21/25 documented as of this encounter
--- OUTSIDE RECORDS SUMMARY | 2025-03-08 17:24 | XMS_ITS ---
Author Organization [employer] Address [address] [place] [address] 7 [place] [address] Care Team Providers Care Clinical Manager Home Care Name Role Phone Kathy Mcneill MD Primary Care Provider Shayan Douglas Unavailable Unavailable Virgilio Vazquez RN Unavailable [phone] Chrissy Villalobos Unavailable CHW Complex Status:Outreach In Progress (Enrolling) Start date:01/21/2025 Enrollment reason:ADT Feed Overview ADT- [facility] ED 01/20/25 Case Team Name Relationship Phone Chrissy Villalobos(Responsible Staff) [phone] Continued Care and Services Coordination
--- OUTSIDE RECORDS SUMMARY | 2025-03-08 17:24 | XMS_ITS | Encounter Summary ---
Author Organization [employer] Address [address] [facility] 7t [place] [address] Care Team Providers Care Tire Servicer Name Role Phone Kathy Mcneill MD Primary Care Provider [phone] Shayan Douglas NUT GRINDER Unavailable Unavailable Virgilio Vazquez RN Unavailable [phone] Chrissy Villalobos Unavailable Reason for Visit * Reason Comments Med Refill Encounter Details Date Type Department Care Team (Late st Contact Info) Description 02/22/2023 Refill [facility] MED & PEDS [address] [place] [address] Kathy Mcneill MD [address] [place] [address] Migraine without aura and without status migrainosus, [...] as of this encounter Care Teams Tire Servicer Relationship Specialty Start Date End Date Kahty Mcneill MD [address] [place] [address] PCP - General Family Medicine 01/06/22 Shayan Douglas FNP [address] [place] [address] Nurse Practitioner Family Medicine 04/16/23 Virgilio Vazquez, CITLALLI [address] [place] [address] Registered Nurse Family Medicine 01/21/25 Chrissy Villalobos 01/21/25 documented as of this encounter
--- OUTSIDE RECORDS SUMMARY | 2025-03-08 17:24 | XMS_ITS | Encounter Summary ---
Author Organization [employer] Address [address] [facility] 7t [place] [address] Care Team Providers Care Art Model Name Role Phone Kathy Mcneill MD Primary Care Provider [phone] Shayan Douglas Unavailable Unavailable Virgilio Vazquez RN Unavailable [phone] Chrissy Villalobos Unavailable Reason for Visit * Reason Comments Care Coordination C3- chart review Encounter Details Date Type Department Care Team (Latest Contact Info) Description 01/21/2025 Patient Outreach [facility] MEDICINE [address] [place] [address] Kathy Mcneill MD [address] [place] [address] Care Coordination (C3CM- chart review) Social History Tobacco Use Types Packs/Day Years [...] PM EST documented as of this encounter Progress Notes * Virgilio Vazquez RN - 01/21/2025 8:15 AM EDT [facility] Vazquez RN, performed chart review, in anticipation of initial assessment with patient, aspatient has stratified for C3 Adult Complex Care through the ADT feed. History significant for aneurysm of renal artery, anxiety, arterial fibromuscular dysplasia, bunion, dissection of coronary artery, HTN, hypothyroidism, intraductal carcinoma in situ of breast, intraoperative CVA, migraines, primary gout, underweight, vitamin d deficiency, anxious depression, hx of MS, carotid artery aneurysm,vertigo, NICHOLAS, cigarette nicotine dependence, right sided sciatica, cerebral aneurysm w/o rupture, hypersomnia, lymphedema. Specialists include sleep medicine services of [facility], [facility] vascular surgery, [facility] PT, [facility] cardiology, [facility] optometry, [facility] general surgeons, [facility] cardiovascular, [facility] oncology and hematology. ED visits within the last 12 months include [facility] 01/20/25. Last appointment in PCP office on 12/30/24. No future appointment scheduled with PCP at this time. documented in this encounter Plan of Treatment Not on file documented as of this encounter Visit Diagnoses Not on filedocumented in this encounter Additional Health Concerns Assessment Noted Time PHQ-9 Depression Total Score: 17 025 3:16 PM EDT documented as of this encounter Care Teams Art Model Relationship Specialty Start Date End Date Kathy Mcneill MD [address] [place] [address] PCP - General Family Medicine 01/06/22 Shayan Douglas FNP [address] [place] [address] Nurse Practitioner Family Medicine 04/16/23 Virgilio Vazquez, CITLALLI [address] [place] [address] Registered Nurse Family Medicine 01/21/25 Chrissy Villalobos 01/21/25 documented as of this encounter
--- OUTSIDE RECORDS SUMMARY | 2025-03-08 17:24 | XMS_ITS | Encounter Summary ---
Author Organization [employer] Address 75 [facility] 7t [place] [address] Care Team Providers Care Ambulance Dispatcher Name Role Phone Kathy Mcneill MD Primary Care Provider [phone] Shayan Douglas Unavailable Unavailable Virgilio Vazquez RN Unavailable [phone] Chrissy Villalobos Unavailable Encounter Details Date Type Department Care Team (Late st Contact Info) Description 05/15/2023 Orders Only [facility] MEDICINE [address] [place] [address] Kathy Mcneill MD [address] [place] [address] Social History Tobacco Use Types Packs/Day Years [...] PM EST Narrative 05/20/2023 1:43 PM EST [facility] Adult Primary Care [facility] [place] [address] Ultrasound Report Signed Patient: Mulu Balderas MR#: [id number] : 1975 Acct:[id number] Age/Sex: 48 / F ADM Date: 05/20/23 Loc: HO.HMGCX Attending Dr: Kathy Mcneill MD Ordering Physician: Kathy Mcneill Date of Service: 05/20/23 Procedure(s): US venous duplex LE LT Accession Number(s): [id number] cc: Kathy Mcneill EXAMINATION: US VENOUS ULTRASOUND [...] in OV> 05/20/23 1339 DD/ 1316 TD/TT: Sign Builder: Procedure Note Donotuseinterpreter, Image - 05/20/2023 [facility] Adult Primary Care [facility] [place] [address] Ultrasound Report Signed Patient: Meche Balderas#: [id number] : 1975Acct:[id number] Age/Sex: 48 / FADM Date: 05/20/23 Loc: HO.HMGCX Attending Dr: Kathy Mcneill MD Ordering Physician: Kathy Mcneill Date of Service: 05/20/23 Procedure(s): US venous duplex LE LT Accession Number(s): [id number] cc: Kathy Mcneill EXAMINATION: US VENOUS ULTRASOUND [...] in OV> 05/20/23 1339 DD/ 1316 TD/TT: Sign Builder: us Kathy Mcneill MD IMG US PROCEDURES Final Result documented in this encounter Visit Diagnoses Not on filedocumented in this encounter Additional Health Concerns Assessment Noted Time PHQ-9 Depression Total Score: 0 05/10/20 23 3:34 PM EST documented as of this encounter Care Teams Ambulance Dispatcher Relationship Specialty Start Date End Date Kathy Mcneill MD [address] [place] [address] PCP - General Family Medicine 01/06/22 Shayan Douglas FNP [address] [place] [address] Nurse Practitioner Family Medicine 04/16/23 Virgilio Vazquez, RN [address] [place] [address] Registered Nurse Family Medicine 01/21/25 Chrissy Villalobos 01/21/25 documented as of this encounter
--- OUTSIDE RECORDS SUMMARY | 2025-03-08 17:24 | XMS_ITS | Encounter Summary ---
Author Organization [employer] Address [address] [facility] 7t [place] [address] Care Team Providers Care Firefighting Equipment Specialist Name Role Phone Kathy Mcneill MD Primary Care Provider Shayan Douglas Unavailable Unavailable Virgilio Vazquez RN Unavailable [phone] Chrissy Villalobos Unavailable Reason for Visit * Reason Comments Med Refill Encounter Details Date Type Department Care Team (Late st Contact Info) Description 06/08/2024 Refill [facility] MEDICINE [address] [place] [address] Kathy Mcneill MD [address] [place], [place] [phone] Smoking Social History Tobacco Use Types Packs/Day [...] documented as of this encounter Care Teams Firefighting Equipment Specialist Relationship Specialty Start Date End Date Kathy Mcneill MD [address] [place] [address] PCP - General Family Medicine 01/06/22 Shayan Douglas FNP [address] [place] [address] Nurse Practitioner Family Medicine 04/16/23 Virgilio Vazquez, CITLALLI [address] [place] [address] Registered Nurse Family Medicine 01/21/25 Chrissy Vilallobos 01/21/25 documented as of this encounter
--- OUTSIDE RECORDS SUMMARY | 2025-03-08 17:24 | XMS_ITS | Encounter Summary ---
Author Organization [employer] Address [address] [place] [address] 7t [place] [address] Care Team Providers Care Twisting Machine Operator Name Role Phone Kathy Mcneill MD Primary Care Provider [phone] Shayan Douglas Unavailable Unavailable Virgilio Vazquez RN Unavailable [phone] Chrissy Villalobos Unavailable Reason for Visit * Reason Onset Date Comments Med Refill 07/22/2024 Encounter Details Date Type Department Care Team (Late st Contact Info) Description 07/22/2024 Refill [facility] MEDICINE [address] [place], [place] [phone] Kathy Mcneill MD [address] [place], [place] [phone] Social History Tobacco Use Types Packs/Day Years [...] documented as of this encounter Care Teams Twisting Machine Operator Relationship Specialty Start Date End Date Kathy Mcneill MD [address] [place] [address] PCP - General Family Medicine 01/06/22 Shayan Douglas FNP [address] [place] [address] Nurse Practitioner Family Medicine 04/16/23 Virgilio Vazquez, CITLALLI [address] [place] [address] Registered Nurse Family Medicine 01/21/25 Chrissy Villalobos 01/21/25 documented as of this encounter
--- OUTSIDE RECORDS SUMMARY | 2025-03-08 17:24 | XMS_ITS ---
Author Organization [employer] Address [address] [place] [address] 7 [place] [address] Care Team Providers Care Second Cutter Name Role Phone Kathy Mcneill MD Primary Care Provider [phone] Shayan Douglas Unavailable Unavailable Virgilio Vazquez RN Unavailable [phone] Chrissy Villalobos Unavailable CM Complex Status:Outreach In Progress (Enrolling) Start date:01/21/2025 Enrollment reason:ADT Feed Overview ADT- [facility] 01/20/25 Case Team Name Relationship Phone Virgilio Vazquez RN(Responsible Staff) Registered [facility] [phone] Continued Care and Services Coordination
== END 2025-03-08 13:43 | disposition home or self-care (01) ==
LOC: HO.MAMMO 13:42
PROVIDERS: PCP General Practice; Visit Provider General Practice
DX: Z13.89 Encounter for screening for other disorder (principal)

== ENCOUNTER 2025-03-09 10:26 | Outpatient (AMB) | payer MEDICAID, SELFPAY ==
--- OUTSIDE RECORDS SUMMARY | 2025-03-04 14:30 | XMS_ITS | Encounter Summary ---
Author Organization [employer] Address [address] [facility] 7t [place] [address] Care Team Providers Care Traveling Phlebotomist Name Role Phone Kathy Mcneill MD Primary Care Provider [phone] Shayan Douglas MORPHOLOGY TEACHER Unavailable Unavailable Virgilio Vazquez RN Unavailable [phone] Chrissy Villalobos Unavailable Reason for Visit * Reason Comments Hypertension Encounter Details Date Type Department Care Team (Latest Contact Info) Description 03/04/2025 2:30 PM EDT Clinical Support [facility] [address] [place] [address] Gabriella Obrien, RN [address] [place], [place] [phone] Secondary hypertension Social History Tobacco Use Types [...] Sign Reading Time Taken Comments Blood Pressure 132/70 03/04/2025 2:55 PM EDT Pulse 56 03/04/2025 2:55 PM EDT Temperature - - Respiratory Rate - - Oxygen Saturation - - Inhaled Oxygen Concentration - - Weight - - Height - - Body Mass Index - - documented in this encounter Progress Notes * Gabriella Obrien RN - 03/04/2025 2:30 PM EDT BP CHECK S: Pt here for BP check nurse visit. At last appointment (02/17/25), pt's BP noted to be 158/88. Pt.'s plan on that day was to improve medication compliance, as patient had been taking metoprolol 100mg twice daily, amlodipine 10mg daily and valsartan 80mg daily but NOT the 160mg daily .Today, pt denies any blurred vision, shortness of breath, chest pain, dizziness, or headaches since last appointment. Pt reports compliance with BP medication regimen, confirms that BP medications were taken todayBOTH doses of valsartan at 9am, and metoprolol and amlodipine at 12pm). Pt. Reports checking BP at home with most readings 120s- 130s systolic/ 80s diastolic, with one high reading of 148/ 86-87. But pt. Checks BP at home before meds. O: L arm BP: 132/70, HR 56 A: Compliance with BP medication regimen BP at goal of <140/90 P: Orders at this time are to continue on same medication regimen, continue to monitor BP at home at least three times per week and call clinic if readings are repeatedly >140/90. Pt to f/u with PCP as needed. Pt agrees with plan and verbalized understanding. documented in this encounter Plan of Treatment Not on file documented as of this encounter Visit Diagnoses Diagnosis Secondary hypertension Other secondary hypertension, unspecified documented in this encounter Additional Health Concerns Assessment Noted Time PHQ-9 Depression Total Score: 17 025 3:16 PM EDT documented as of this encounter Care Teams Traveling Phlebotomist Relationship Specialty Start Date End Date Kathy Mcneill MD [address] [place] [address] PCP - General Family Medicine 01/06/22 Shayan Douglas FNP [address] [place] [address] Nurse Practitioner Family Medicine 04/16/23 Virgilio Vazquez, CITLALLI [address] [place] [address] Registered Nurse Family Medicine 01/21/25 Chrissy Villalobos 01/21/25 documented as of this encounter
--- NOTE | 2025-03-09 10:29 | A.OFFVIS_ITS ---
Vital Signs 3 03/09/25 10:44 Height 5 ft 2 in Weight 128 lb BMI 23.4 BP 149/67 H Blood Pressure Location Lt brachial Position Sitting Pulse 76 Intake Visit Reasons: rt breast lump Intake Note: Patient is seen in office for a left breast lump. Pt c/o: was sched to have mm and u/s and the personnel notice a lump on the left breast near the axilla and was told to f/up before getting any imaging Call Center Rn Required: No Automotive Generator Repairer: Automotive Generator Repairer Present Accompanied by: Self / Same As Patient Allergies Gadolinium-Containing Contrast Medi Allergy (Severe, Verified 03/09/25 10:44) Rash Iodinated Contrast Media (IV Contrast Dye) Allergy (Severe, Verified 03/09/25 10:44) Rash Medication List - Last Reconciled 03/09/25 by Tony Osuna MD amlodipine 10 mg PO DAILY aspirin 81 mg PO DAILY atorvastatin 40 mg PO BEDTIME azithromycin For 250 mg dose pack: take 500 mg today (day 1), then 250 mg for 4 days (days 2-5) bismuth subsalicylate 2 tabs PO QID 10 days bupropion HCl SR 150 mg PO DAILY gabapentin 100 mg PO DAILY PRN hydroxyzine pamoate 25 mg PO BEDTIME PRN levothyroxine 125 mcg PO DAILY metoprolol succinate ER 100 mg PO BID metronidazole 500 mg PO TID 10 days mirtazapine 30 mg PO DAILY ondansetron 4 mg PO Q8H PRN pantoprazole 20 mg PO BID 2 weeks pantoprazole 20 mg PO BID 10 days prednisone 40 mg (2 x 20 mg) PO DAILY 5 days tetracycline 500 mg PO Q6H 10 days topiramate 100 mg PO BEDTIME valsartan 160 mg PO DAILY HPI Comments Details: 49-year-old female patient returning for concern regarding a palpable mass in the right breast at the upper outer quadrant noted on self-examination. 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 She underwent a right breast lumpectomy on 09/22/2024 and subsequently required a wider excision on 10/07/2021. 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 She underwent radiation therapy at [facility] which was completed on 12/09/2019 she developed lymphedema of the right breast which required physical therapy for approximately 3 weeks. On 11/15/2021 she underwent a left breast MR guided biopsy which revealed breast parenchyma with pseudoangiomatous stromal hyperplasia, duct ectasia, negative for atypia or malignancy. On 10/01/2022 she underwent excision of 2 left breast cysts. Pathology revealed no atypia or malignancy. On 02/12/2024 she underwent left breast lumpectomy of a palpable mass. This revealed benign findings including fibrocystic change and pseudoangiomatous stromal hyperplasia. Genetic testing performed on 03/02/2024 revealed no clinically significant mutations however to variance of uncertain significance in the SDHA and SDHB genes were identified. (This would be significant if she had a family history of paraganglioma or pheochromocytoma, renal/kidney cancer, or gastrointestinal stromal tumor (GIST). Patients with family history of these disorders would be eligible for [employer] family study program. To the best of her knowledge she has no family history of any these disorders). Her most recent mammogram and ultrasound performed on 09/24/2024 revealed no mammographic or sonographic evidence of malignancy in either breast (BI-RADS 2). She now is concerned about a palpable mass in the right axilla which she feels comes and goes in his occasionally associated with pain. [facility] needed to examined before they can do a mammogram. [facility] Medical History Fibromuscular dysplasia History of COVID-19 Sleep apnea History of radiation therapy Stroke Aneurysm NSTEMI (non-ST elevated myocardial infarction) Gout Hypertension Hypothyroidism Ductal carcinoma in situ (DCIS) of right breast Surgical History History of lumpectomy of left breast (02/12/24) History of removal of cyst History of breast lump/mass excision (07/09/22) Status post cardiac catheterization History of right breast biopsy (09/08/19) History of endometrial ablation (2010) History of bilateral tubal ligation (2003) History of lumpectomy of right breast (10/07/19) Family History Daughter Thyroid cancer Paternal Grandmother Breast cancer Thyroid cancer Diabetes Sister Diabetes HTN (hypertension) Sister HTN (hypertension) Sister HTN (hypertension) Sister HTN (hypertension) Sister HTN (hypertension) Father Brain tumor Mother Heart attack Social History Household Members: Other Household Members Other:: daughter Housing: Apartment Are you a primary healthcare science specialist to a significant other at home: No Do you presently have visiting nurse or other home services: No Alcohol intake: former Year quit: 2020 Patient Tobacco Use Status: Former Tobacco user Tobacco use type: Cigarette Years Smoked: 10 +/- service: No Current occupational status: employed Current occupation: rt handed Review of Systems Const All systems reviewed & are unremarkable except as noted in HPI and below Physical Exam Vital Signs: Last Vital Signs Pulse 76 03/09/25 10:44 BP 149/67 H 03/09/25 10:44 BMI result Body Mass Index 23.4 Const General: no acute distress Nutritional Appearance: well nourished and thin Orientation/consciousness: patient oriented x3 Chest Other: Well-healed bilateral breast incisions with no evidence of infection or seroma. Breasts are bilaterally tender especially in the lower inner quadrant. Left breast: No skin change, no nipple retraction, no nipple discharge, no palpable mass, no enlarged lymph nodes. Right breast: Well-healed incision in the upper outer quadrant with appropriate postoperative hollows. No skin change, no nipple retraction, no nipple discharge, no definite palpable mass in the upper outer quadrant, axilla or the remaining breast tissue, no enlarged lymph nodes Chest/axillae images: 2 1. Incision upper right breast Resp Effort & Inspection: normal respiratory effort GI Inspection: Yes normal to inspection Skin Other: Warm, dry, no rash Neuro Other: Mobility Assessment: 1. 3 meter assessment time (seconds): 4 2. Gait observations: Normal balance and gait General: patient oriented x3 Extrem General: Yes no clubbing, cyanosis or edema Assessment & Plan Assessment & Plan (1) Ductal carcinoma in situ (DCIS) of right breast: Code(s): D05.11 - Intraductal carcinoma in situ of right breast Category: Medical (2) Breast mass, right: Code(s): N63.10 - Unspecified lump in the right breast, unspecified quadrant Category: Medical Qualifiers: Breast mass location: upper outer quadrant Qualified Code(s): N63.11 - Unspecified lump in the right breast, upper outer quadrant (3) Breast pain, right: Code(s): N64.4 - Mastodynia Category: Medical Plan 49-year-old female patient with a prior history of DCIS of the right breast presenting with a palpable mass located in the upper outer quadrant on self- examination. This is located close to the axilla. On my examination I do identify postoperative changes from her prior lumpectomy however no definite discrete masses appreciated other than usual fibrocystic change. No new skin changes are identified as well. No enlarged lymph nodes are appreciated. I suggested a diagnostic mammogram and ultrasound of the right breast to better evaluate this area. She expressed understanding and agrees with the plan. Follow-up examination is recommended in 6 months. Orders: Orders 2 MM diagnostic mammo unilat RT Today D05.11 - Intraductal carcinoma in situ of right breast, N63.10 - Unspecified lump in the right breast, unspecified quadrant, N64.4 - Mastodynia US breast RT limited Today D05.11 - Intraductal carcinoma in situ of right breast, N63.10 - Unspecified lump in the right breast, unspecified quadrant, N64.4 - Mastodynia Coding Level of Care Code Est Pt Level 3 (53441) Complex EM visit Add On G2211 Diagnoses Ductal carcinoma in situ (DCIS) of right breast D05.11 Mass of upper outer quadrant of right breast N63.11 Breast mass location: upper outer quadrant Breast pain, right N64.4
[2025-03-09 10:44] VITALS: BP 149/67; PULSE 76; BMI 23.4
--- OUTSIDE RECORDS SUMMARY | 2025-03-09 12:52 | XMS_ITS | Encounter Summary ---
Author Organization [employer] Address [address] [facility] 7t [place] [address] Care Team Providers Care Psychologist Developmental Name Role Phone Kathy Mcneill MD Primary Care Provider [phone] Shayan Douglas DRAMA DIRECTOR Unavailable Unavailable Virgilio Vazquez RN Unavailable [phone] Chrissy Villalobos Unavailable Reason for Visit * Reason Comments Med Refill Encounter Details Date Type Department Care Team (Late st Contact Info) Description 05/15/2024 Refill [facility] MED & PEDS [address] [place] [address] Kathy Mcneill MD [address] [place] [address] Migraine without aura and without status migrainosus, [...] Date End Date Kathy Mcneill MD [address] [place] [address] PCP - General Family Medicine 01/06/22 Shayan Douglas FNP [address] [place] [address] Nurse Practitioner Family Medicine 04/16/23 Virgilio Vazquez, CITLALLI [address] [place] [address] Registered Nurse Family Medicine 01/21/25 Chrissy Villalobos 01/21/25 documented as of this encounter
--- OUTSIDE RECORDS SUMMARY | 2025-03-09 12:52 | XMS_ITS | Encounter Summary ---
Author Organization [employer] Address [address] [place] [address] 7t [place] [address] Care Team Providers Care Spool Sorter Name Role Phone Kathy Mcneill MD Primary Care Provider [phone] Shayan Douglas Unavailable Unavailable Virgilio Vazquez RN Unavailable Chrissy Villalobos Unavailable Reason for Visit * Reason Comments Med Refill Encounter Details Date Type Department Care Team (Late st Contact Info) Description 06/17/2024 Refill [facility] MEDICINE [address] [place] [address] Kathy Mcneill MD [address] [place] [address] Smoking Social History Tobacco Use Types Packs/Day [...] documented as of this encounter Care Teams Spool Sorter Relationship Specialty Start Date End Date Kathy Mcneill MD [address] [place] [address] PCP - General Family Medicine 01/06/22 Shayan Douglas FNP [address] [place] [address] Nurse Practitioner Family Medicine 04/16/23 Virgilio Vazquez, CITLALLI [address] [place] [address] Registered Nurse Family Medicine 01/21/25 Chrissy Villalobos 01/21/25 documented as of this encounter
--- OUTSIDE RECORDS SUMMARY | 2025-03-09 12:52 | XMS_ITS ---
Author Organization [employer] Address [address] [place] [address] 7 [place] [address] Care Team Providers Care Customer Support Technician Name Role Phone Kathy Mcneill MD Primary Care Provider [phone] Shayan Douglas Unavailable Unavailable Virgilio Vazquez RN Unavailable [phone] Chrissy Villalobos Unavailable CHW Complex Status:Outreach In Progress (Enrolling) Start date:01/21/2025 Enrollment reason:ADT Feed Overview [place] [facility] [place] Case Team Name Relationship Phone Chrissy Villalobos(Responsible Staff) Continued Care and Services Coordination
--- OUTSIDE RECORDS SUMMARY | 2025-03-09 12:52 | XMS_ITS | Encounter Summary ---
Author Organization [employer] Address [address] [facility] 7t [place] [address] Care Team Providers Care Reading Efficiency Course Director Name Role Phone Kathy Mcneill MD Primary Care Provider [phone] Shayan Douglas Unavailable Unavailable Virgilio Vazquez RN Unavailable [phone] Chrissy Villalobos Unavailable Reason for Visit * Reason Comments Med Refill Encounter Details Date Type Department Care Team (Late st Contact Info) Description 06/08/2024 Refill [facility] MEDICINE [address] [place] [address] Kathy Mcneill MD [address] [place], [place] [phone] Smoking Social History Tobacco Use Types Packs/Day [...] documented as of this encounter Care Teams Reading Efficiency Course Director Relationship Specialty Start Date End Date Kathy Mcneill MD [address] [place] [address] PCP - General Family Medicine 01/06/22 Shayan Douglas FNP [address] [place] [address] Nurse Practitioner Family Medicine 04/16/23 Virgilio Vazquez, CITLALLI [address] [place] [address] Registered Nurse Family Medicine 01/21/25 Chrissy Villalobos 01/21/25 documented as of this encounter
--- OUTSIDE RECORDS SUMMARY | 2025-03-09 12:52 | XMS_ITS | Encounter Summary ---
Author Organization [employer] Address [address] [facility] 7t [place] [address] Care Team Providers Care Colored Liquid Plastic Applier Name Role Phone Kathy Mcneill MD Primary Care Provider [phone] Shayan Douglas Unavailable Unavailable Virgilio Vazquez RN Unavailable [phone] Chrissy Villalobos Unavailable Encounter Details Date [...] documented as of this encounter Care Teams Colored Liquid Plastic Applier Relationship Specialty Start Date End Date Kathy Mcneill MD [address] [place] [address] PCP - General Family Medicine 01/06/22 Shayan Douglas FNP [address] [place] [address] Nurse Practitioner Family Medicine 04/16/23 Virgilio Vazquez, RN [address] [place] [address] Registered Nurse Family Medicine 01/21/25 Chrissy Villalobos 01/21/25 documented as of this encounter
--- OUTSIDE RECORDS SUMMARY | 2025-03-09 12:52 | XMS_ITS | Encounter Summary ---
Author Organization [employer] Address [address] [place] [address] 7t [place] [address] Care Team Providers Care Senior Energy Analyst Name Role Phone Kathy Mcneill MD Primary Care Provider [phone] Shayan Douglas Unavailable Unavailable Virgilio Vazquez RN Unavailable [phone] Chrissy Villalobos Unavailable Reason for Visit * Reason Onset Date Comments Med Refill 07/22/2024 Encounter Details Date Type Department Care Team (Late st Contact Info) Description 07/22/2024 Refill [facility] MEDICINE [address] [place] [address] Kathy Mcneill MD [address] [place], [place] [phone] Social History Tobacco Use Types Packs/Day Years [...] documented as of this encounter Care Teams Senior Energy Analyst Relationship Specialty Start Date End Date Kathy Mcneill MD [address] [place] [address] PCP - General Family Medicine 01/06/22 Shayan Douglas FNP [address] [place] [address] Nurse Practitioner Family Medicine 04/16/23 Virgilio Vazquez, CITLALLI [address] [place] [address] Registered Nurse Family Medicine 01/21/25 Chrissy Villalobos 01/21/25 documented as of this encounter
--- OUTSIDE RECORDS SUMMARY | 2025-03-09 12:52 | XMS_ITS | Encounter Summary ---
Author Organization [employer] Address [address] [facility] [address] [place] [address] Care Team Providers Care Guest Attendant Name Role Phone Kathy Mcneill MD Primary Care Provider [phone] Shayan Douglas CASE ADVOCATE Unavailable Unavailable Virgilio Vazquez RN Unavailable [phone] Chrissy Villalobos Unavailable Reason for Visit * Reason Comments Med Refill Encounter Details Date Type Department Care Team (Late st Contact Info) Description 12/28/2023 Refill [facility] MED & PEDS [address] [place] [address] Kathy Mcneill MD [address] [place] [address] Migraine without aura and without status migrainosus, [...] documented as of this encounter Care Teams Guest Attendant Relationship Specialty Start Date End Date Kathy Mcneill MD [address] [place] [address] PCP - General Family Medicine 01/06/22 Shayan Douglas FNP [address] [place] [address] Nurse Practitioner Family Medicine 04/16/23 Virgilio Vazquez, CITLALLI [address] [place] [address] Registered Nurse Family Medicine 01/21/25 Chrissy Villalobos 01/21/25 documented as of this encounter
--- OUTSIDE RECORDS SUMMARY | 2025-03-09 12:52 | XMS_ITS | Encounter Summary ---
Author Organization [employer] Address [address] [place] [address] 7t [place] [address] Care Team Providers Care Information Technology Auditor Name Role Phone Kathy Mcneill MD Primary Care Provider [phone] Shayan Douglas Unavailable Unavailable Virgilio Vazquez RN Unavailable [phone] Chrissy Villalobos Unavailable Reason for Visit * Reason Onset Date Comments Med Refill 03/04/2025 Encounter Details Date Type Department Care Team (Late st Contact Info) Description 03/04/2025 Refill [facility] MEDICINE [address] [place] [address] Gabriella Obrien, RN [address] [place], [place] [phone] Secondary hypertension Social History Tobacco Use Types [...] documented as of this encounter Care Teams Information Technology Auditor Relationship Specialty Start Date End Date Kathy Mcneill MD [address] [place] [address] PCP - General Family Medicine 01/06/22 Shayan Douglas FNP [address] [place] [address] Nurse Practitioner Family Medicine 04/16/23 Virgilio Vazquez, RN [address] [place] [address], [place] [address] Registered Nurse Family Medicine 01/21/25 Chrissy Villalobos 01/21/25 documented as of this encounter
--- OUTSIDE RECORDS SUMMARY | 2025-03-09 12:52 | XMS_ITS ---
Author Organization [employer] Address [address] [place] [address] 7 [place] [address] Care Team Providers Care Label Folder Name Role Phone Kathy Mcneill MD Primary Care Provider [phone] Shayan Douglas Unavailable Unavailable Virgilio Vazquez RN Unavailable [phone] Chrissy Villalobos Unavailable CM Complex Status:Outreach In Progress (Enrolling) Start date:01/21/2025 Enrollment reason:ADT Feed Overview [place] [facility] [place] Case Team Name Relationship Phone Virgilio Vazquez RN(Responsible Staff) Registered [facility] [phone] Continued Care and Services Coordination
--- OUTSIDE RECORDS SUMMARY | 2025-03-09 12:52 | XMS_ITS | Encounter Summary ---
Author Organization [employer] Address [address] [facility] 7t [place] [address] Care Team Providers Care Clerk Name Role Phone Kathy Mcneill MD Primary Care Provider [phone] Shayan Douglas Unavailable Unavailable Virgilio Vazquez RN Unavailable [phone] Chrissy Villalobos Unavailable Encounter Details Date Type Department Care Team (Late st Contact Info) Description 02/11/2025 Refill [facility] MEDICINE [address] [place] [address] Kathy Mcneill MD [address] [place] [address] Migraine without aura and without status migrainosus, [...] documented as of this encounter Care Teams Clerk Relationship Specialty Start Date End Date Kathy Mcneill MD [address] [place] [address] PCP - General Family Medicine 01/06/22 Shayan Douglas FNP [address] [place] [address] Nurse Practitioner Family Medicine 04/16/23 Virgilio Vazquez, RN [address] [place] [address] Registered Nurse Family Medicine 01/21/25 Chrissy Villalobos 01/21/25 documented as of this encounter
--- OUTSIDE RECORDS SUMMARY | 2025-03-09 12:52 | XMS_ITS | Encounter Summary ---
Author Organization [employer] Address [address] [facility] 7t [place] [address] Care Team Providers Care Tomato Grader Name Role Phone Kathy Mcneill MD Primary Care Provider Shayan Douglas Unavailable Unavailable Virgilio Vazquez RN Unavailable [phone] Chrissy Villalobos Unavailable Encounter Details Date Type Department Care Team (Late st Contact Info) Description 09/22/2024 Orders Only [facility] MED & PEDS [address] [place] [address] Provider, MD Lane Social History Tobacco Use [...] AM EDT Narrative 09/24/2024 10:17 AM EDT [facility] [address] [place] [address] Ultrasound Report Signed Patient: Mulu Balderas MR#: [id number] : 1975 Acct:[id number] Age/Sex: 49 / F ADM Date: 09/24/24 Loc: HO.MAMMO Attending Dr: Tony Osuna MD Ordering Physician: Tony Osuna MD Date of Service: 09/24/24 Procedure(s): US breast BI limited mamm only Accession Number(s): [id number] cc: Kathy Mcneill; Tony Osuna MD EXAMINATION: [...] tissue. There is no sonographic abnormality. Left: Montour marker in the upper outer breast posterior [...] 09/24/24 1014 DD/ 0930 TD/TT: 09/24/24 1007 Vp Cardiovascular Service Line: Procedure Note Donotuseinterpreter, Image - 09/28/2024 [place] [facility] [address] [place] [address] Ultrasound Report Signed Patient: Mcehe Balderas#: [id number] : 1975Acct:[id number] Age/Sex: 49 / FADM Date: 09/24/24 Loc: HO.MAMMO Attending Dr: Tony Osuna MD Ordering Physician: Tony Osuna MD Date of Service: 09/24/24 Procedure(s): US breast BI limited mamm only Accession Number(s): [id number] cc: Kathy Mcneill; Tony Osuna MD EXAMINATION: [...] tissue. There is no sonographic abnormality. Left: Montour marker in the upper outer breast posterior [...] 09/24/24 1014 DD/ 0930 TD/TT: 09/24/24 1007 Vp Cardiovascular Service Line: us [facility] External Provider IMG US PROCEDURES Edited Result - Final * BI Mammogram Diagnostic Tomosynthesis Bilateral (09/24/2024 9:00 AM EDT) Anatomical Region Laterality Modality Breast Bilateral Mammography 09/24/2024 9:00 AM EDT Narrative 09/24/2024 10:17 AM EDT [facility] [address] [place] [address] Mammography Report Signed Patient: Mulu Balderas MR#: [id number] : 1975 Acct:[id number] Age/Sex: 49 / F ADM Date: 09/24/24 Loc: ALOK Attending Dr: Tony Osuna MD Ordering Physician: Tony Osuna MD Results: 2Beni gn Findings Date of Service: 09/24/24 Follow Up: 1 Year From Orig ina Mammogram Procedure(s): MM tomosynthesis diagnostic BI Accession Number(s): [id number] cc: Kathy Mcneill; Tony Osuna MD EXAMINATION: [...] tissue. There is no sonographic abnormality. Left: Montour marker in the upper outer breast posterior [...] 09/24/24 1014 DD/ 0900 TD/TT: 09/24/24 0934 Vp Cardiovascular Service Line: Procedure Note Donotuseinterpreter, Image - 09/28/2024 [place] [facility] [address] [place] [address] Mammography Report Signed Patient: Meche Balderas#: [id number] : 1975Acct:[id number] Age/Sex: 49 / FADM Date: 09/24/24 Loc: HO.MAMMO Attending Dr: Tony Osuna MD Ordering Physician: Tony Osuna MDResults: 2Beni gn Findings Date of Service: 09/24/24Follow Up: 1 Year From Orig ina Mammogram Procedure(s): MM tomosynthesis diagnostic BI Accession Number(s): [id number] cc: Kathy Mcneill; Tony Osuna MD EXAMINATION: [...] tissue. There is no sonographic abnormality. Left: [place] marker in the upper outer breast posterior [...] 09/24/24 1014 DD/ 0900 TD/TT: 09/24/24 0934 Vp Cardiovascular Service Line: [facility] External Provider IMG BI PROCEDURES Edited [...] documented as of this encounter Care Teams Tomato Grader Relationship Specialty Start Date End Date Kathy Mcneill MD [address] [place] [address] PCP - General Family Medicine 01/06/22 Shayan Douglas FNP [address] [place] [address] Nurse Practitioner Family Medicine 04/16/23 Virgilio Vazquez, CITLALLI [address] [place] [address] Registered Nurse Family Medicine 01/21/25 Chrissy Villalobos 01/21/25 documented as of this encounter
--- OUTSIDE RECORDS SUMMARY | 2025-03-09 12:52 | XMS_ITS | Encounter Summary ---
Author Organization [employer] Address [address] 7t [place] [address] Care Team Providers Care Obstetrics Tech Name Role Phone Kathy Mcneill MD Primary Care Provider [phone] Shayan Douglas Unavailable Unavailable Virgilio Vazquez RN Unavailable [phone] Chrissy Villalobos Unavailable Reason for Visit * Reason Comments Care Coordination C3- chart review Encounter Details Date Type Department Care Team (Latest Contact Info) Description 01/21/[address] [facility] [address] [place] [address] Kathy Mcneill MD [address] [place] [address] Care Coordination (C3CM- chart review) Social History [...] vitamin d deficiency, anxious depression, hx of DC, carotid artery aneurysm,vertigo, NICHOLAS, cigarette nicotine dependence, right sided sciatica, cerebral aneurysm w/o rupture, hypersomnia, lymphedema. Specialists include sleep medicine services of [facility], [facility] vascular surgery, [facility] PT, [facility] cardiology, [facility] optometry, [facility] general surgeons, [facility] cardiovascular, [facility] oncology and hematology. ED visits within the last 12 months include [facility] 01/20/25. Last appointment in PCP office on 12/30/24. No future appointment scheduled with PCP at this time. documented in this encounter Plan of Treatment Not on file documented as of this encounter Visit Diagnoses Not on filedocumented in this encounter Additional Health Concerns Assessment Noted Time PHQ-9 Depression Total Score: 17 025 3:16 PM EDT documented as of this encounter Care Teams Obstetrics Tech Relationship Specialty Start Date End Date Kathy Mcneill MD [address] [place] [address] PCP - General Family Medicine 01/06/22 Shayan Douglas FNP [address] [place] [address] Nurse Practitioner Family Medicine 04/16/23 Virgilio Vazquez, CITLALLI [address] [place] [phone] Registered Nurse Family Medicine 01/21/25 Chrissy Villalobos 01/21/25 documented as of this encounter
--- OUTSIDE RECORDS SUMMARY | 2025-03-09 12:52 | XMS_ITS | Clinical Summary ---
Author Organization [employer] Address [address] [place] [address] 7t [place] [address] Care Team Providers Care Wood Window And Door Craftsman Name Role Phone Kathy Mcneill MD Primary Care Provider [phone] Shayan Douglas Unavailable Unavailable Virgilio Vazquez RN Unavailable Chrissy Villalobos Unavailable Allergies Active Allergy Reactions [...] g Active ergocalciferol (Vitamin D2) 1.25 MG (96808 UT) capsule Take 1 capsule (1.25 mg) [...] results and refer for any abnormal to union organizer for biopsy Cigarette nicotine dependence without complicati [...] AM EDT): Last saw Dr Osuna at [facility] 04/2022 Reassuring US in 10/2021, with simple cysts in L breast Continue q6 month followup Assessment & Plan (05/02/2022 12:11 PM EST): Last saw Dr Osuna at [facility] 04/2022 Reassuring US in 10/2021, with simple cysts Migraines 03/31/2022 Vitamin D deficiency 03/31/2022 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 Assessment & Plan (05/22/2024 8:33 AM EST): Continue conservative management Assessment & Plan (07/31/2022 11:18 AM EDT): With ICA stent and resolved (according to CTA of head/neck from [facility]) aneurysm Will have pt return to neurovascular [...] Description 03/04/2025 2:30 PM EDT Clinical Support [address] [phone] Gabriella Obrien RN Secondary hypertension 03/04/[address] [phone] Gabriella Obrien RN Secondary hypertension 03/04/2025 Travel 02/17/2025 9:30 AM EDT Clinical Support [address] [phone] Sophia Ornelas RN Secondary hypertension [I15.9] 02/17/2025 Patient Outreach [address] [address] Kathy Mcneill MD Care Coordination ([facility]3 [facility] Chrissy Villalobos telephone call outreach) 02/17/2025 Travel 02/16/2025 Patient Outreach [address] [phone] Kathy Mcneill MD 02/16/[address] [phone] Kathy Mcneill MD Nurse Triage 02/11/[address] [phone] Kathy Mcneill MD Migraine without aura and without status migrainosus, not intractable 02/10/2025 Refill [facility] [address] [place], [place] [phone] Kathy Mcneill MD Migraine without aura and without status migrainosus, not intractable 02/04/2025 Patient Outreach [address] [phone] Kathy Mcneill MD Care Coordination ([facility] Chrissy Villalobos telephone call outreach) 01/27/2025 Refill [facility] [address] [place] [address] Kathy Mcneill MD Migraine without aura and without status migrainosus, not intractable 01/21/2025 Patient Outreach [address] [address] Kathy Mcneill MD Care Coordination (C3 -[facility] Chrissy Villalobos chart review ) 01/21/2025 Patient Outreach [address] [address] Kathy Mcneill MD Care Coordination (C3CM- chart review) 01/21/2025 Patient Outreach [address] [address] Kathy Mcneill MD 01/20/2025 Orders Only [facility] External Provider, [facility] 12/30/2024 3:15 PM EDT Office Visit [address] [address] Kathy Mcneill MD Secondary hypertension (Primary Dx); Arterial fibromuscular dysplasia (CMS/HCC); Carotid artery aneurysm (CMS/HCC); History of myocardial infarction 12/29/[address] [address] Kathy Mcneill MD chart prep 12/29/2024 Telephone [facility] [address] [place] [address] Kathy Mcneill MD Chart Prep 12/29/2024 Travel 12/21/2024 1:30 PM EDT Office Visit [facility] OPTOMETRY [address] [place] [address] Boris, Shara, OD Myelinated retinal nerve fiber layer (Primary Dx); Optic nerve asymmetry, right; Cortical age-related cataract of both eyes; Presbyopia 12/21/2024 Travel 12/17/2024 3:15 PM EDT Office Visit [address] [address] Mihaela Ochoa CNP Plantar wart of right foot (Primary Dx) 12/17/2024 Travel 12/17/2024 Telephone [facility] MEDIC[facility] [address] [place] [address] Kathy Mcneill MD Nurse Triage 12/17/2024 Refill [facility] [address] [place] [address] Kathy Mcneill MD 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 [...] * Referral to Sleep Medicine (02/03/2025) [facility] OUTPATIENT REFERRAL ORDER EVAN Final Result * Influenza A B2 ID NOW (Santoyo) (01/20/2025 12:26 PM EDT) IDNOW SERIAL# [id number] [facility] Influenza A Negative Negative [facility] Influenza B2 Negative Negative [facility] Influenza A B2 Note See Note [facility] Comment:The Santoyo ID NOW In [...] LAB MICROBIOLOGY - GENERAL ORDERABLES Final Result [facility] [address] [place] [phone] * COVID-19 ID NOW (SANTOYO) (01/20/2025 12:26 PM EDT) IDNOW SERIAL# [id number] [facility] COVID-19 TEST Negative Negative [facility] COVID-19 NOTE See Note [facility] Comment: Results are for the identification of SARS-CoV2 RNA. TheSARS-CoV2 RNA is generally detectable in respiratory samplesduring the acute phase of infection. Positive results areindicative of the presence of SARS-CoV-2 RNA; clinicalcorrelation with patient history and other diagnosticinformation is necessary to determine patient infectionstatus. Positive results do not rule out bacterial infectionor co- infection with other viruses.Testing facilities within the [facility] and [facility] are required to report all positive results [...] use by authorized laboratories.Testing performed on the [employer] NOW utilizing NAAT. 01/20/2025 12:2 6 PM EDT 01/20/2025 12:29 PM EDT us Generic External Data Provider LAB MOLECULAR REFUGIO GNOSTICS ORDERABLES Final Result [facility] [address] [place] [phone] * Strep A Nucleic Acid (01/20/2025 12:25 PM EDT) IDNOW SERIAL# [id number] [facility] Strep A Nucleic Acid Negative Negative [facility] Comment:All test results mus t [...] ORDERABLES Final Result Performing Organization Address City/State/[facility] Co de Phone Number [facility] [address] [place] [phone] * XR Chest 2 Views (01/20/2025 12:25 PM EDT) Anatomical Region Laterality Modality Chest Radiographic Noa ging 01/20/2025 12:2 5 PM EDT Narrative 01/20/2025 12:37 PM EDT [address] [address] XRay Report Signed Patient: Mulu Balderas MR#: [id number] : 1975 Acct:[id number] Age/Sex: 49 / F ADM Date: 01/20/25 Loc: HO.ED Attending Dr: Ordering Physician: Fernanda Garcia Date of Service: 01/20/25 Procedure(s): XR chest 2V Accession Number(s): [id number] cc: Kathy Mcneill; Fernanda Garcia Reason for [...] 01/20/25 1234 DD/ 1225 TD/TT: 01/20/25 1229 Powerhouse Mechanic Apprentice: Procedure Note Donotuseinterpreter, Image - 01/20/[address] [address] XRay Report Signed Patient: Mulu BalderasMR#: [id number] : 1975Acct:[id number] Age/Sex: 49 / FADM Date: 01/20/25 Loc: HO.ED Attending Dr: Ordering Physician: Fernanda Garcia Date of Service: 01/20/25 Procedure(s): XR chest 2V Accession Number(s): [id number] cc: Kathy Mcneill; Fernanda Garcia Reason for [...] OV> 01/20/25 1234 DD/ 1225 TD/TT: 01/20/259 Powerhouse Mechanic Apprentice: [facility] External Provider IMG XR PROCEDURES Final Result * (ABNORMAL) Vitamin D, 25-Hydroxy, Total, Immunoassay (12/29/2024 1:49 PM EDT) Vitamin D 25-OH Total 25.2(L) >30 ng/mL [facility] Comment: Health Based Reference Values*< 20 ng/mL Xrpusfahe59-52 ng/mL Insufficient> 30 ng/mL Sufficient*Holick MF. N [...] PM EDT 12/29/2024 4:17 PM EDT [facility] LAB BLOOD ORDERABLES Veena l Result [facility] [address] [place] [phone] * (ABNORMAL) Vitamin B12/Folate, Serum Panel (12/29/2024 1:49 PM EDT) Vitamin B12 184(L) 200 - 900 pg/mL [facility] Comment:NORMAL 200-900 PG/ML INDETERMINATE 160-199 PG/ML DEFICIENT < 160 PG/ML Folate 9.8 > or = 4.0 ng/mL [facility] Comment:Reference Values:> o r = 4.0 ng/mL< 4.0 ng/mL suggests folate deficiency Methotrexate, aminopterin and folinic acid(leucovorin) are chemotherapeutic agents whose molecularstructures are similar to folate; therefore, the Architectfolate assay cannot be used for patients using these drugs. Blood Venous blood specimen / Unknown 12/29/2024 1:49 PM EDT 12/29/2024 4:17 PM EDT [facility] SENIOR SOFTWARE ANALYST LAB BLOOD ORDERABLES Veena l Result Performing Organization Address City/[facility]/ZIP Co de Phone Number [facility] [address] [place] [phone] * TSH W/Reflex to FT4 (12/29/2024 1:49 PM EDT) TSH reflex Free T4 3.21 0.32 - 4.0 uIU/mL [facility] Blood Venous blood specimen / Unknown 12/29/2024 1:49 PM EDT 12/29/2024 4:17 PM EDT [facility] SENIOR SOFTWARE ANALYST LAB BLOOD ORDERABLES Veena l Result Performing Organization Address [facility] Co de Phone Number [facility] [address] [place] [phone] * CBC auto differential (12/29/2024 1:49 PM EDT) White Blood Count 7.7 4.8 - 10.8 X10*3/uL [facility] Red Blood Count 4.41 4.20 - 5.50 X10*6/uL [facility] Hemoglobin 13.7 12.0 - 16.0 g/dl [facility] Hematocrit 41.2 37.0 - 47.0 % [facility] Mean Corpuscular Volume 93.4 80.0 - 98.0 fL [facility] Mean Corpuscular Hemoglobin 31.1 27.0 - 33.0 pg [facility] Mean Corpuscular HGB Conc 33.3 31.0 - 35.0 g/dl [facility] Red Cell Distribution Width 12.6 11.0 - 16.0 % [facility] Platelet Count 181 160 - 400 X10*3/uL [facility] Mean Platelet Volume 11.6 9.4 - 12.3 fL [facility] Neutrophils Percent Auto 55.0 45 - 73 % [facility] Imm Gran Pct Auto 0.4 0.0 - 0.4 % [facility] Lymphocytes Percent Auto 35.2 20 - 40 % [facility] Monocytes Percent Auto 7.9 2 - 11 % [facility] Eosinophils Percent Auto 0.8 0 - 4 % [facility] Basophils Percent Auto 0.7 0 - 2 % [facility] NRBC Pct Auto 0.0 0.0 - 0.2 /100WBC [facility] Neutrophils Absolute Auto 4.2 2.0 - 8.3 x10*3/uL [facility] Imm Gran Abs Auto 0.03 0.00 - 0.03 X10*3/uL [facility] Lymphocytes Absolute Auto 2.7 1.2 - 4.9 X10*3/uL [facility] Monocytes Absolute Auto 0.6 0.1 - 1.2 X10*3/uL [facility] Eosinophils Absolute Auto 0.1 0.0 - 0.4 X10*3/uL [facility] Basophils Absolute Auto 0.1 0.0 - 0.2 X10*3/uL [facility] NRBC Abs Auto 0.000 0.0 - 0.012 X10*3/uL [facility] Blood Venous blood specimen / Unknown 12/29/2024 1:49 PM EDT 12/29/2024 4:17 PM EDT [facility] LAB BLOOD ORDERABLES Veena l Result [facility] [address] [place] [phone] * Iron And Total Iron Binding Capacity (12/29/2024 1:49 PM EDT) Iron 112 30 - 160 mcg/dL [facility] Total Iron Binding Capacity 259 228 - 428 mcg/dL [facility] Percent Iron Saturation 43 15 - 50 % [facility] Unsaturated Iron Binding 147 ug/dL [facility] Blood Venous blood specimen / Unknown 12/29/2024 1:49 PM EDT 12/29/2024 4:17 PM EDT [facility] LAB BLOOD ORDERABLES Veena l Result [facility] [address] [place] [phone] * (ABNORMAL) Comprehensive Metabolic Panel (12/29/2024 1:49 PM EDT) Sodium 144 135 - 145 mmol/L [facility] Potassium 4.2 3.3 - 5.1 mmol/L [facility] Chloride 110(H) 96 - 108 mmol/L [facility] Carbon Dioxide 28 22 - 29 mmol/L [facility] Anion Gap 10(L) 12 - 20 [facility] Urea Nitrogen (BUN) 11 9 - 16 mg/dL [facility] Creatinine, Serum 0.68 0.5 - 1.4 mg/dL [facility] Estimated Glomerular Filt Rate >60 [facility] Comment:Chronic Kidney Disea se: Estimated GFR < 60 mL/min/1.56u8Skhoji Kidney Disease: Estimated GFR < 15 mL/min/1.73m2 Glucose 81 60 - 115 mg/dL [facility] Calcium 9.7 8.4 - 10.2 mg/dL [facility] Bilirubin, Total 0.3 0.0 - 1.0 mg/dL [facility] Aspartate Amino Transferase 25 5 - 31 U/L [facility] Alanine Aminotransferase 21 0 - 31 U/L [facility] Total Protein 7.0 6.5 - 8.0 g/dL [facility] Albumin Level 4.4 3.5 - 5.0 g/dL [facility] Alkaline Phosphatase 87 39 - 117 U/L [facility] Blood Venous blood specimen / Unknown 12/29/2024 1:49 PM EDT 12/29/2024 4:17 PM EDT [facility] LAB BLOOD ORDERABLES Veena tejeda Result [facility] [address] [place], [place] [phone] * OCT, Optic Nerve - OU [...] (02/20/2024 11:14 AM EDT) Colonoscopy Normal Normal Yue Cervantes - 02/20/2024 11:14 AM EDT Recommended 10 years see external hospital admission note on 02/20/2024 Historical Provider HEALTH MAINTENANCE Edited Result - Final * HPV mRNA E6/E7 w/Reflex to HPV Genotypes 16, 18/45 (05/10/2023 4:56 PM EST) HPV nRNA E6/E7 Not Detected Not Detected [facility] Comment:Methodology: Transcr iption-Mediated AmplificationThis assay detects E6/E7 viral messenger RNA (mRNA) from 14high-risk HPV types (16,18,31,33,35,39,45,51,52,56,58,59,66,68).Cervical sources are required for HPV testing.If a vaginal source from a patient who has had atotal hysterectomy with removal of cervix wassubmitted, please contact the testing laboratoryfor alternative testing options.For additional information, please refer tohttp://education.[employer]/faq/NEH356v1(This link if provided for information/educational purposes only.)THIS TEST WAS PERFORMED AT:[facility] [place] [phone] CRUZ MD HPV mRNA E6/E7 [facility] HPV 16 RNA TNP [facility] HPV 18/45 RNA [facility] 05/10/2023 4:56 PM EST 05/14/2023 8:00 AM EST Kathy Mcneill MD LAB CYTOLOGY ORDERABLES Final Result Performing Organization Address City/State/[facility] Co de Phone Number [facility] [address] [place] [phone] * Pap Smear (05/10/2023 4:56 PM EST) 05/10/2023 4:56 PM EST 05/14/2023 8:00 AM EST Narrative [facility] - 05/17/2023 1:44 PM EST ----- ------- Name: Mulu Balderas Age/Sex: 48/F : 1975 Unit#: [id number] Attend Dr: Kathy Mcneill Re05/10/23 Status: DEP REF Location: [facility] Disch: ----- ------- SPEC : [id number] RECD: 05/14/23 STATUS: MAGDALENA CARREON NUM: [id number] NORTH: 05/10/[address] [facility] [address]: Kathy Mcneill ENTERED: 05/14/23 SP TYPE: Pap Smr OTHR DR: ORDERED: Pap Smear Interpretation Satisfactory for evaluation. Negative for intraepithelial lesion or malignancy. HPV mRNA E6/E7: NOT DETECTED This assay detects E6/E7 viral messenger RNA (mRNA) from 14 high-risk HPV types (16, 18, 31, 33, 35, 39, 45, 51, 52, 56, 58, 59, 66, 68) HPV testing performed by [facility], [place], [place]. See reference laboratory portion of the EMR for entire report. Clinical Information LMP: Menopause Previous PAP test: Unknown date/findings Material Received ThinPrep-Cervical ----- ------- Signed (signature on file) INNA Cobb (ASC) 05/17/23 1344 ----- ------- END OF REPORT Kathy Mcneill MD LAB CYTOLOGY ORDERABLES Final Result Performing Organization Address [facility] Co de Phone Number [facility] [address] [place] [phone] * Hepatitis C Ab (04/08/2023 2:44 PM EST) Hepatitis C Antibody Nonreactive Nonreactive [facility] Comment:Antibodies to HCV no t detected; does not exclude early acuteHCV infection. Blood Venous blood specimen / Unknown 04/08/2023 2:44 PM EST 04/08/2023 4:15 PM EST Kathy Mcneill MD LAB BLOOD ORDERABLES Final Res ult Performing Organization Address [facility] de Phone Number [facility] [address] [place] [phone] * HIV-1/2 Antigen and Antibodies, Fourth Generation, with Reflexes (04/08/2023 2:44 PM EST) Pathologist [facility] HIV AB/AG Nonreactive Nonreactive [facility] Comment:HIV-1 p24 Ag and/or HIV-1/HIV-2 Ab not detected.A test result that is nonreactive does not exclude thepossibility of exposure to or infection with HIV-1 and/orHIV-2. Nonreactive results in this assay for individualswith prior exposure to HIV-1 and/or HIV-2 may be due toantigen and antibody levels that are below the limit ofdetection of this assay.The Dtime HIV Ag/Ab Combo assay result andsupplemental assay results should be interpreted inconjunction with the patient's clinical presentation,history and other laboratory results. If the results areinconsistent with clinical evidence, additional testing issuggested to confirm the result. Blood Venous blood specimen / Unknown 04/08/2023 2:44 PM EST 04/08/2023 4:15 PM EST Kathy Mcneill MD LAB BLOOD ORDERABLES Final Res ult [facility] [address] [place] [phone] [phone] * (ABNORMAL) LIPID PANEL, STANDARD (01/18/2021 [...] LDL-C. Johnnie SS et al. LAURENT. 2013;310(19): 1615-9843 (http://education.[employer]/faq/NUV601) Non-HDL Cholesterol 71 <130 mg/dL (calc) [facility] Comment: For patients with diabetes plus 1 major ASCVD risk factor, treating to a non-HDL-C goal of <100 mg/dL (LDL-C of <70 mg/dL) is considered a therapeutic option. Triglycerides 110 <150 mg/dL [facility] 01/18/2021 2:59 PM EDT us Dayan Diez GRAPHIC SPECIALIST LAB BLOOD ORDERABLES Final Res ult [facility] [address] from Last 3 Months or Most Recently Relevant to Health Maintenance Insurance [facility] C3 Care Teams Wood Window And Door Craftsman Relationship Specialty Start Date End Date Kathy Mcneill MD [address] [place], [place] PCP - General Family Medicine 01/06/22 Shayan Douglas FNP [address] [place], [place] Nurse Practitioner Family Medicine 04/16/23 Virgilio Vazquez, RN [address] [place] [address] Registered Nurse Family Medicine 01/21/25 Chrissy Villalobos 01/21/25
--- OUTSIDE RECORDS SUMMARY | 2025-03-09 12:52 | XMS_ITS | Encounter Summary ---
Author Organization [employer] Address [address] [facility] 7t [place] [address] Care Team Providers Care Sea Air Land Officer Name Role Phone Kathy Mcneill MD Primary Care Provider [phone] Shayan Douglas GLASSWARE MAKER DEMONSTRATOR Unavailable Unavailable Virgilio Vazquez RN Unavailable [phone] Chrissy Villalobos Unavailable Reason for Visit * Reason Comments Med Refill Encounter Details Date Type Department Care Team (Late st Contact Info) Description 01/27/2025 Refill [facility] [address] [place] [address] Kathy Mcneill MD [address] [place] [address] Migraine without aura and without status migrainosus, [...] documented as of this encounter Care Teams Sea Air Land Officer Relationship Specialty Start Date End Date Kathy Mcneill MD [address] [place] [address] PCP - General Family Medicine 01/06/22 Shayan Douglas FNP [address] [place], [place] Nurse Practitioner Family Medicine 04/16/23 Virgilio Vazquez, CITLALLI [address] [place] [phone] Registered Nurse Family Medicine 01/21/25 Chrissy Villalobos 01/21/25 documented as of this encounter
--- OUTSIDE RECORDS SUMMARY | 2025-03-09 12:52 | XMS_ITS | Clinical Summary ---
Author Organization [facility] Address [address] [place], [place] [phone] Phone Care Team Providers Care Advertising Sales Executive Name Role Phone Dayan Diez SLATE SPLITTING SUPERVISOR Primary Care Provider Unav ailable Social History Tobacco Use Types Packs/Day Years Used Date Smoking Tobacco: Never Assessed Comments Unknown Sex and Gender Information Value Date Recorded Sex Assigned at Not on file Legal Sex Female 2:15 PM EST Gender Identity Not on file Sexual Orientation Not on file Plan of Treatment Not on file Medical Devices Not on file Insurance [facility] C3 ACO [facility] C3 ACO [facility] C3 ACO [facility] C3 ACO [facility] C3 ACO [facility] C3 ACO [facility] C3 ACO [facility] C3 ACO Care Teams Advertising Sales Executive Relationship Specialty Start Date End Date Dayan Diez NP PCP - General Family Medicine 03/27/21 Additional Source Comments The information contained in this document represents components of the legal health record. It is not the complete legal health record.[facility]
--- OUTSIDE RECORDS SUMMARY | 2025-03-09 12:53 | XMS_ITS | Encounter Summary ---
Author Organization [employer] Address 75 [facility] 7t [place] [address] Care Team Providers Care Marble Machine Operator Name Role Phone Kathy Mcneill MD Primary Care Provider [phone] Shayan Douglas Unavailable Unavailable Virgilio Vazquez RN Unavailable [phone] Chrissy Villalobos Unavailable Encounter Details Date Type Department Care Team (Late st Contact Info) Description 05/15/2023 Orders Only [facility] MEDICINE [address] [place] [address] Kathy Mcneill MD [address] [place] [address] Social History Tobacco Use Types Packs/Day Years [...] PM EST Narrative 05/20/2023 1:43 PM EST [facility] [place] [facility] [place] [address] Ultrasound Report Signed Patient: Mulu Balderas MR#: [id number] : 1975 Acct:[id number] Age/Sex: 48 / F ADM Date: 05/20/23 Loc: HO.HMGCX Attending Dr: Kathy Mcneill MD Ordering Physician: Kathy Mcneill Date of Service: 05/20/23 Procedure(s): US venous duplex LE LT Accession Number(s): [id number] cc: Kathy Mcneill EXAMINATION: US VENOUS ULTRASOUND [...] in OV> 05/20/23 1339 DD/ 1316 TD/TT: Saddle Lining Stitcher: Procedure Note Donotuseinterpreter, Image - 05/20/2023 [facility] [place] [facility] [place] [address] Ultrasound Report Signed Patient: Meche Balderas#: [id number] : 1975Acct:[id number] Age/Sex: 48 / FADM Date: 05/20/23 Loc: HO.HMGCX Attending Dr: Kathy Mcneill MD Ordering Physician: Kathy Mcneill Date of Service: 05/20/23 Procedure(s): US venous duplex LE LT Accession Number(s): [id number] cc: Kathy Mcneill EXAMINATION: US VENOUS ULTRASOUND [...] in OV> 05/20/23 1339 DD/ 1316 TD/TT: Saddle Lining Stitcher: us Kathy Mcneill MD IMG US PROCEDURES Final Result documented in this encounter Visit Diagnoses Not on filedocumented in this encounter Additional Health Concerns Assessment Noted Time PHQ-9 Depression Total Score: 0 05/10/20 23 3:34 PM EST documented as of this encounter Care Teams Marble Machine Operator Relationship Specialty Start Date End Date Kathy Mcneill MD [address] [place] [address] PCP - General Family Medicine 01/06/22 Shayan Douglas FNP [address] [place] [address] Nurse Practitioner Family Medicine 04/16/23 Virgilio Vazquez, RN [address] [place] [address] Registered Nurse Family Medicine 01/21/25 Chrissy Villalobos 01/21/25 documented as of this encounter
--- OUTSIDE RECORDS SUMMARY | 2025-03-09 12:53 | XMS_ITS | Encounter Summary ---
Author Organization [employer] Address 75 [facility] 7t [place] [address] Care Team Providers Care Hot Saw Operator Name Role Phone Kathy Mcneill MD Primary Care Provider [phone] Shayan Douglas INSPECTOR WREATH Unavailable Unavailable Virgilio Vazquez RN Unavailable [phone] Chrissy Villalobos Unavailable Reason for Visit * Reason Comments Med Refill Encounter Details Date Type Department Care Team (Late st Contact Info) Description 02/22/2023 Refill [facility] MED & PEDS [address] [place] [address] Kathy Mcneill MD [address] [place] [address] Migraine without aura and without status migrainosus, [...] documented as of this encounter Care Teams Hot Saw Operator Relationship Specialty Start Date End Date Kathy Mcneill MD [address] [place] [address] PCP - General Family Medicine 01/06/22 Shayan Douglas FNP [address] [place] [address] Nurse Practitioner Family Medicine 04/16/23 Virgilio Vazquez, CITLALLI [address] [place] [address] Registered Nurse Family Medicine 01/21/25 Chrissy Villalobos 01/21/25 documented as of this encounter
== END 2025-03-09 10:45 | disposition home or self-care (01) ==
LOC: HO.HGS 10:26
PROVIDERS: PCP General Practice; Visit Provider Surgery
DX: D05.11 Intraductal carcinoma in situ of right breast (principal); N63.11 Unspecified lump in the right breast, upper outer quadrant; N64.4 Mastodynia
CPT/HCPCS: 99213

== ENCOUNTER → 2025-03-09 10:26 | Outpatient (BNVA) | payer MEDICAID, SELFPAY | PROVIDERS: PCP General Practice; Visit Provider Surgery | DX: N63.11 Unspecified lump in the right breast, upper outer quadrant (principal); D05.11 Intraductal carcinoma in situ of right breast; N64.4 Mastodynia; Z98.890 Other specified postprocedural states | CPT/HCPCS: 99212 ==

== ENCOUNTER 2025-03-16 09:17 | Outpatient (REF) | payer MEDICAID, SELFPAY ==
--- NOTE | ~2025-03-16 | MM_ITS ---
EXAMINATION(S): 1. MM DIAGNOSTIC DIGITAL BREAST TOMOSYNTHESIS, RIGHT 2. 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 Today, complaining of 2 right breast lumps and one right axillary lump. COMPARISON: Comparison made to multiple prior, most recent September 24, 2024, and most remote September 23, 2019. TECHNIQUE: Digital breast tomosynthesis is performed in both the mediolateral oblique and craniocaudal views along with computer-aided detection (CAD). Synthesized 2D images are generated from the tomosynthesis. Spot compression tomosynthesis were obtained. Three skin BB markers were placed at the location of the palpable concern as indicated by the patient. FINDINGS: BREAST COMPOSITION: The breasts are heterogeneously dense, which may obscure small masses. RIGHT BREAST: -Stable post lumpectomy changes. -No significant masses, suspicious calcifications or other abnormalities are seen. In particular, no suspicious mammographic findings adjacent to the skin BB markers placed in the lower inner, lower outer and axillary regions. Targeted ultrasound of the right breast was performed at the location of the palpable concern as indicated by the patient. The survey throughout the lower outer quadrant, lower inner quadrant as well as along the 8-9:00 axis did not reveal suspicious sonographic findings. MM/MM diagnostic mammo unilat RT IMPRESSION: RIGHT BREAST: Benign, no evidence of malignancy. In particular, no suspicious findings to accounts for patient's palpable concerns. Clinical follow-up is recommended. Otherwise, normal interval follow-up mammogram is expected in September 2025. ASSESSMENT: BI-RADS: Category 2: Benign RECOMMENDATION: 1. Patient should be managed based on the clinical impression. 2. Otherwise, routine annual screening mammography. Results were provided to the patient at time of visit by the technologist. This patient's information was entered into a reminder system with a target due date for their next mammogram. Electronically signed by: Kamla Ferrer MD 03/16/2025 11:12 AM [facility]
--- OUTSIDE RECORDS SUMMARY | 2025-03-16 10:05 | XMS_ITS | Encounter Summary ---
Author Organization [employer] Address 75 [facility] 7t [place] [address] Care Team Providers Care Technology Adoption Manager Name Role Phone Kathy Mcneill MD Primary Care Provider [phone] Shayan Douglas TUBE INSPECTOR Unavailable Unavailable Virgilio Vazquez RN Unavailable [phone] Chrissy Villalobos Unavailable Reason for Visit * Reason Comments Med Refill Encounter Details Date Type Department Care Team (Late st Contact Info) Description 05/15/2024 Refill [facility] MED & PEDS [address] [place] [address] Kathy Mcneill MD [address] [place] [address] Migraine without aura and without status migrainosus, [...] documented as of this encounter Care Teams Technology Adoption Manager Relationship Specialty Start Date End Date Kathy Mcneill MD [address] [place] [address] PCP - General Family Medicine 01/06/22 Shayan Douglas FNP [address] [place] [address] Nurse Practitioner Family Medicine 04/16/23 Virgilio Vazquez, CITLALLI [address] [place] [address] Registered Nurse Family Medicine 01/21/25 Chrissy Villalobos 01/21/25 documented as of this encounter
--- OUTSIDE RECORDS SUMMARY | 2025-03-16 10:05 | XMS_ITS | Encounter Summary ---
Author Organization [employer] Address 75 [facility] 7t [place] [address] Care Team Providers Care Thermoforming Machine Operator Name Role Phone Kathy Mcneill MD Primary Care Provider [phone] Shayan Douglas DOCTOR OF PHARMACY Unavailable Unavailable Virgilio Vazquez RN Unavailable [phone] Chrissy Villalobos Unavailable Reason for Visit * Reason Comments Med Refill Encounter Details Date Type Department Care Team (Late st Contact Info) Description 12/28/2023 Refill [facility] MED & PEDS [address] [place] [address] Kathy Mcneill MD [address] [place] [address] Migraine without aura and without status migrainosus, [...] documented as of this encounter Care Teams Thermoforming Machine Operator Relationship Specialty Start Date End Date Kathy Mcneill MD [address] [place] [address] PCP - General Family Medicine 01/06/22 Shayan Douglas FNP [address] [place] [address] Nurse Practitioner Family Medicine 04/16/23 Virgilio Vazquez, CITLALLI [address] [place] [address] Registered Nurse Family Medicine 01/21/25 Chrissy Villalobos 01/21/25 documented as of this encounter
--- OUTSIDE RECORDS SUMMARY | 2025-03-16 10:05 | XMS_ITS | Encounter Summary ---
Author Organization [employer] Address 75 [facility] 7t [place] [address] Care Team Providers Care Chicken Boner Name Role Phone Kathy Mcneill MD Primary Care Provider [phone] Shayan Douglas WAITER/WAITRESS DINING CAR Unavailable Unavailable Virgilio Vazquez RN Unavailable [phone] Chrissy Villalobos Unavailable Reason for Visit * Reason Comments Med Refill Encounter Details Date Type Department Care Team (Late st Contact Info) Description 02/22/2023 Refill [facility] MED & PEDS [address] [place] [address] Kathy Mcneill MD [address] [place] [address] Migraine without aura and without status migrainosus, [...] documented as of this encounter Care Teams Chicken Boner Relationship Specialty Start Date End Date Kathy Mcneill MD [address] [place] [address] PCP - General Family Medicine 01/06/22 Shayan Douglas FNP [address] [place] [address] Nurse Practitioner Family Medicine 04/16/23 Virgilio Vazquez, CITLALLI [address] [place] [address] Registered Nurse Family Medicine 01/21/25 Chrissy Villalobos 01/21/25 documented as of this encounter
--- OUTSIDE RECORDS SUMMARY | 2025-03-16 10:05 | XMS_ITS | Encounter Summary ---
Author Organization [employer] Address 75 [facility] 7t [place] [address] Care Team Providers Care Furnace Process Supervisor Name Role Phone Kathy Mcneill MD Primary Care Provider [phone] Shayan Douglas DIE TRY OUT WORKER STAMPING Unavailable Unavailable Virgilio Vazquez RN Unavailable [phone] Chrissy Villalobos Unavailable Reason for Visit * Reason Comments Med Refill Encounter Details Date Type Department Care Team (Late st Contact Info) Description 01/27/2025 Refill [facility] MED & PEDS [address] [place] [address] Ktahy Mcneill MD [address] [place] [address] Migraine without aura and without status migrainosus, [...] documented as of this encounter Care Teams Furnace Process Supervisor Relationship Specialty Start Date End Date Kathy Mcneill MD [address] [place] [address] PCP - General Family Medicine 01/06/22 Shayan Douglas FNP [address] [place], [place] Nurse Practitioner Family Medicine 04/16/23 Virgilio Vazquez, CITLALLI [address] [place] [address] Registered Nurse Family Medicine 01/21/25 Chrissy Villalobos 01/21/25 documented as of this encounter
--- OUTSIDE RECORDS SUMMARY | 2025-03-16 10:05 | XMS_ITS | Clinical Summary ---
Author Organization [facility] Address [address] [place], [place] [phone] Phone Care Team Providers Care Shellac Polisher Name Role Phone Dayan Diez RECOVERY OPERATOR Primary Care Provider Unav ailable Social History Tobacco Use Types Packs/Day Years Used Date Smoking Tobacco: Never Assessed Comments Unknown Sex and Gender Information Value Date Recorded Sex Assigned at Not on file Legal Sex Female 2:15 PM EST Gender Identity Not on file Sexual Orientation Not on file Plan of Treatment Not on file Medical Devices Not on file Insurance [facility] [facility] [facility] C[address] [facility] [facility] [facility] C[address] [facility] C[address] [facility] C3 ACO Care Teams Shellac Polisher Relationship Specialty Start Date End Date Dayan Diez NP PCP - General Family Medicine 03/27/21 Additional Source Comments The information contained in this document represents components of the legal health record. It is not the complete legal health record.[facility]
--- OUTSIDE RECORDS SUMMARY | 2025-03-16 10:05 | XMS_ITS | Encounter Summary ---
Author Organization [employer] Address 75 [facility] 7t [place] [address] Care Team Providers Care Theatrical Agent Name Role Phone Kathy Mcneill MD Primary Care Provider Shayan Douglas Unavailable Unavailable Virgilio Vazquez RN Unavailable [phone] Chrissy Villalobos Unavailable Reason for Visit * Reason Comments Med Refill Encounter Details Date Type Department Care Team (Late st Contact Info) Description 06/08/2024 Refill [facility] MEDICINE [address] [place] [address] Kathy Mcneill MD [address] [place], [place] [phone] Smoking Social History Tobacco Use Types Packs/Day [...] documented as of this encounter Care Teams Theatrical Agent Relationship Specialty Start Date End Date Kathy Mcneill MD [address] [place] [address] PCP - General Family Medicine 01/06/22 Shayan Douglas FNP [address] [place] [address] Nurse Practitioner Family Medicine 04/16/23 Virgilio Vazquez, CITLALLI [address] [place] [address] Registered Nurse Family Medicine 01/21/25 Chrissy Villalobos 01/21/25 documented as of this encounter
--- OUTSIDE RECORDS SUMMARY | 2025-03-16 10:05 | XMS_ITS | Encounter Summary ---
Author Organization [employer] Address 75 [facility] 7t [place] [address] Care Team Providers Care Tank Crewmember Name Role Phone Kathy Mcneill MD Primary Care Provider [phone] Shayan Douglas Unavailable Unavailable Virgilio Vazquez RN Unavailable [phone] Chrissy Villalobos Unavailable Reason for Visit * Reason Comments Med Refill Encounter Details Date Type Department Care Team (Late st Contact Info) Description 06/17/2024 Refill [facility] [address] [place] [address] Kathy Mcneill MD [address] [place] [address] Smoking Social History Tobacco Use Types Packs/Day [...] documented as of this encounter Care Teams Tank Crewmember Relationship Specialty Start Date End Date Kathy Mcneill MD [address] [place] [address] PCP - General Family Medicine 01/06/22 Shayan Douglas FNP [address] [place] [address] Nurse Practitioner Family Medicine 04/16/23 Virgilio Vazquez, CITLALLI [address] [place] [address] Registered Nurse Family Medicine 01/21/25 Chrissy Villalobos 01/21/25 documented as of this encounter
--- OUTSIDE RECORDS SUMMARY | 2025-03-16 10:05 | XMS_ITS | Encounter Summary ---
Author Organization [employer] Address 75 [facility] 7t [place] [address] Care Team Providers Care Cable Engineer Name Role Phone Kathy Mcneill MD Primary Care Provider [phone] Shayan Douglas Unavailable Unavailable Virgilio Vazquez RN Unavailable [phone] Chrissy Villalobos Unavailable Encounter Details Date Type Department Care Team (Late st Contact Info) Description 09/22/2024 Orders Only [facility] MED & PEDS [address] [place] [address] Provider, MD Lane Social History Tobacco Use [...] AM EDT Narrative 09/24/2024 10:17 AM EDT [facility] [address] [place] [address] Ultrasound Report Signed Patient: Mulu Balderas MR#: [id number] : 1975 Acct:[id number] Age/Sex: 49 / F ADM Date: 09/24/24 Loc: HO.MAMMO Attending Dr: Tony Osuna MD Ordering Physician: Tony Osuna MD Date of Service: 09/24/24 Procedure(s): US breast BI limited mamm only Accession Number(s): [id number] cc: Kathy Mcneill; Tony Osuna MD EXAMINATION: [...] tissue. There is no sonographic abnormality. Left: Preston marker in the upper outer breast posterior [...] 09/24/24 1014 DD/ 0930 TD/TT: 09/24/24 1007 Retail Advertising Sales Manager: Procedure Note Donotuseinterpreter, Image - 09/28/2024 [place] [facility]'s [address] [place] [address] Ultrasound Report Signed Patient: Meche Balderas#: [id number] : 1975Acct:[id number] Age/Sex: 49 / FADM Date: 09/24/24 Loc: HO.MAMMO Attending Dr: Tony Osuna MD Ordering Physician: oTny Osuna MD Date of Service: 09/24/24 Procedure(s): US breast BI limited mamm only Accession Number(s): [id number] cc: Kathy Mcneill; Tony Osuna MD EXAMINATION: [...] tissue. There is no sonographic abnormality. Left: Preston marker in the upper outer breast posterior [...] 09/24/24 1014 DD/ 0930 TD/TT: 09/24/24 1007 Retail Advertising Sales Manager: us [facility] External Provider IMG US PROCEDURES Edited Result - Final * BI Mammogram Diagnostic Tomosynthesis Bilateral (09/24/2024 9:00 AM EDT) Anatomical Region Laterality Modality Breast Bilateral Mammography 09/24/2024 9:00 AM EDT Narrative 09/24/2024 10:17 AM EDT [facility] [address] [place] [address] Mammography Report Signed Patient: Mulu Balderas MR#: [id number] : 1975 Acct:[id number] Age/Sex: 49 / F ADM Date: 09/24/24 Loc: ALOK Attending Dr: Tony Osuna MD Ordering Physician: Tony Osuna MD Results: 2Beni gn Findings Date of Service: 09/24/24 Follow Up: 1 Year From Orig ina Mammogram Procedure(s): MM tomosynthesis diagnostic BI Accession Number(s): [id number] cc: Kathy Mcneill; Tony Osuna MD EXAMINATION: [...] tissue. There is no sonographic abnormality. Left: Preston marker in the upper outer breast posterior [...] 09/24/24 1014 DD/ 0900 TD/TT: 09/24/24 0934 Retail Advertising Sales Manager: Procedure Note Donotuseinterpreter, Image - 09/28/2024 [place] [facility]'s [address] [place] [address] Mammography Report Signed Patient: Meche Balderas#: [id number] : 1975Acct:[id number] Age/Sex: 49 / FADM Date: 09/24/24 Loc: HO.MAMMO Attending Dr: Tony Osuna MD Ordering Physician: Tony Osuna MDResults: 2Beni gn Findings Date of Service: 09/24/24Follow Up: 1 Year From Orig ina Mammogram Procedure(s): MM tomosynthesis diagnostic BI Accession Number(s): [id number] cc: Kathy Mcneill; Tony Osuna MD EXAMINATION: [...] tissue. There is no sonographic abnormality. Left: Preston marker in the upper outer breast posterior [...] 09/24/24 1014 DD/ 0900 TD/TT: 09/24/24 0934 Retail Advertising Sales Manager: [facility] External Provider IMG BI PROCEDURES Edited [...] documented as of this encounter Care Teams Cable Engineer Relationship Specialty Start Date End Date Kathy Mcneill MD [address] [place] [address] PCP - General Family Medicine 01/06/22 Shayan Douglas FNP [address] [place] [address] Nurse Practitioner Family Medicine 04/16/23 Virgilio Vazquez, CITLALLI [address] [place] [address] Registered Nurse Family Medicine 01/21/25 Chrissy Villalobos 01/21/25 documented as of this encounter
--- OUTSIDE RECORDS SUMMARY | 2025-03-16 10:05 | XMS_ITS | Encounter Summary ---
Author Organization [employer] Address 75 [facility] 7t [place] [address] Care Team Providers Care Generator Technician Name Role Phone Kathy Mcneill MD Primary Care Provider [phone] Shayan Douglas Unavailable Unavailable Virgilio Vazquez RN Unavailable [phone] Chrissy Villalobos Unavailable Reason for Visit * Reason Onset Date Comments Med Refill 07/22/2024 Encounter Details Date Type Department Care Team (Late st Contact Info) Description 07/22/2024 Refill [facility] MEDICINE [address] [place] [address] Kathy Mcneill MD [address] [place], [place] [phone] Social History Tobacco Use Types Packs/Day Years [...] documented as of this encounter Care Teams Generator Technician Relationship Specialty Start Date End Date Kathy Mcneill MD [address] [place] [address] PCP - General Family Medicine 01/06/22 Shayan Douglas FNP [address] [place] [address] Nurse Practitioner Family Medicine 04/16/23 Virgilio Vazquez, CITLALLI [address] [place] [address] Registered Nurse Family Medicine 01/21/25 Chrissy Villalobos 01/21/25 documented as of this encounter
--- OUTSIDE RECORDS SUMMARY | 2025-03-16 10:05 | XMS_ITS | Encounter Summary ---
Author Organization [employer] Address 75 [facility] 7t [place] [address] Care Team Providers Care Cane Flume Feeding Machine Operator Name Role Phone Kathy Mcneill MD Primary Care Provider [phone] Shayan Douglas Unavailable Unavailable Virgilio Vazquez RN Unavailable [phone] Chrissy Villalobos Unavailable Encounter Details Date Type Department Care Team (Late st Contact Info) Description 05/15/2023 Orders Only [facility] MEDICINE [address] [place] [address] Kathy Mcneill MD [address] [place] [address] Social History Tobacco Use Types Packs/Day Years [...] PM EST Narrative 05/20/2023 1:43 PM EST [facility] [place] [facility] [address] Ultrasound Report Signed Patient: Mulu Balderas MR#: [id number] : 1975 Acct:[id number] Age/Sex: 48 / F ADM Date: 05/20/23 Loc: HO.HMGCX Attending Dr: Kathy Mcneill MD Ordering Physician: Kathy Mcneill Date of Service: 05/20/23 Procedure(s): US venous duplex LE LT Accession Number(s): [id number] cc: Kathy Mcneill EXAMINATION: US VENOUS ULTRASOUND [...] in OV> 05/20/23 1339 DD/ 1316 TD/TT: Political Worker: Procedure Note Donotuseinterpreter, Image - 05/20/2023 [facility] [place] [facility] [address] Ultrasound Report Signed Patient: Meche Balderas#: [id number] : 1975Acct:[id number] Age/Sex: 48 / FADM Date: 05/20/23 Loc: HO.HMGCX Attending Dr: Kathy Mcneill MD Ordering Physician: Kathy Mcneill Date of Service: 05/20/23 Procedure(s): US venous duplex LE LT Accession Number(s): [id number] cc: Kathy Mcneill EXAMINATION: US VENOUS ULTRASOUND [...] in OV> 05/20/23 1339 DD/ 1316 TD/TT: Political Worker: us Kathy Mcneill MD IMG US PROCEDURES Final Result documented in this encounter Visit Diagnoses Not on filedocumented in this encounter Additional Health Concerns Assessment Noted Time PHQ-9 Depression Total Score: 0 05/10/20 23 3:34 PM EST documented as of this encounter Care Teams Cane Flume Feeding Machine Operator Relationship Specialty Start Date End Date Kathy Mcneill MD [address] [place] [address] PCP - General Family Medicine 01/06/22 Shayan Douglas FNP [address] [place] [address] Nurse Practitioner Family Medicine 04/16/23 Virgilio Vazquez, RN [address] [place] [address] Registered Nurse Family Medicine 01/21/25 Chrissy Villalobos 01/21/25 documented as of this encounter
--- OUTSIDE RECORDS SUMMARY | 2025-03-16 10:05 | XMS_ITS ---
Author Organization [employer] Address [address] [place] [address] 7 [place] [address] Care Team Providers Care Wraparound Facilitator Name Role Phone Kathy Mcneill MD Primary Care Provider [phone] Shayan Douglas Unavailable Unavailable Virgilio Vazquez RN Unavailable [phone] Chrissy Villalobos Unavailable [facility] Status:Outreach In Progress (Enrolling) Start date:01/21/2025 Enrollment reason:ADT Feed Overview ADT- [facility] [place] ED 01/20/25 Case Team Name Relationship Phone Chrissy Villalobos(Responsible Staff) Continued Care and Services Coordination
--- OUTSIDE RECORDS SUMMARY | 2025-03-16 10:05 | XMS_ITS | Clinical Summary ---
Author Organization [email or web address] Address [address] [place] [address] Care Team Providers Care Multi Spindle Operator Name Role Phone Kathy Mcneill MD Primary Care Provider [phone] Shayan Douglas Unavailable Unavailable Virgilio Vazquez RN Unavailable [phone] Chrissy Villalobos Unavailable Allergies Active Allergy [...] g Active ergocalciferol (Vitamin D2) 1.25 MG (82839 UT) capsule Take 1 capsule (1.25 mg) [...] results and refer for any abnormal to cloth beamer for biopsy Cigarette nicotine dependence without complicati [...] EDT): [place] [facility] [place] Reassuring US in 10/2021, with simple cysts in L breast Continue q6 month followup Assessment & Plan (05/02/2022 12:11 PM EST): [place] Osuna [place] [facility] [place] Reassuring US in 10/2021, with simple cysts Migraines 03/31/2022 Vitamin D deficiency 03/31/2022 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 Assessment & Plan (05/22/2024 8:33 AM EST): Continue conservative management Assessment & Plan (07/31/2022 11:18 AM EDT): With ICA stent and resolved (according to [facility] [place] [facility] aneurysm Will have pt return to neurovascular [...] Description 03/04/2025 2:30 PM EDT Clinical Support [address] [address] Gabriella Obrien, CITLALLI Secondary hypertension 03/04/[address] [address] Gabriella Obrien RN Secondary hypertension 03/04/2025 Travel 02/17/2025 9:30 AM EDT Clinical Support [address] [address] Sophia Ornelas RN Secondary hypertension [I15.9] 02/17/2025 Patient Outreach [address] [address] Kathy Mcneill MD Care Coordination (C3 -[facility] telephone call outreach) 02/17/2025 Travel 02/16/2025 Patient Outreach [address] [address] Kathy Mcneill MD 02/16/[address] [address] Kathy Mcneill MD Nurse Triage 02/11/[address] [address] Kathy Mcneill MD Migraine without aura and without status migrainosus, not intractable 02/10/2025 Refill [facility] [address] [place] [address] Kathy Mcneill MD Migraine without aura and without status migrainosus, not intractable 02/04/2025 Patient Outreach [facility] [address] [place] [phone] Kathy Mcneill MD Care Coordination (C3 CM-[facility] telephone call outreach) 01/27/2025 Refill [facility] [address] [place] [address] Kathy Mcneill MD Migraine without aura and without status migrainosus, not intractable 01/21/2025 Patient Outreach [address] [address] Kathy Mcneill MD Care Coordination (C3 -[facility] Chrissy Villalobos chart review ) 01/21/2025 Patient Outreach [address] [address] Kathy Mcneill MD Care Coordination (C3- chart review) 01/21/2025 Patient Outreach [address] [address] Kathy Mcneill MD 01/20/2025 Orders Only [facility] External Provider, [facility] 12/30/2024 3:15 PM EDT Office Visit [address] [address] Kathy Mcneill MD Secondary hypertension (Primary Dx); Arterial fibromuscular dysplasia (CMS/HCC); Carotid artery aneurysm (CMS/HCC); History of myocardial infarction 12/29/[address] [address] Kathy Mcneill MD chart prep 12/29/2024 Telephone [facility] [address] [place], [place] [phone] Kathy Mcneill MD Chart Prep 12/29/2024 Travel 12/21/2024 1:30 PM EDT Office Visit [facility] [address] [place] [address] Boris, Shara, OD Myelinated retinal nerve fiber layer (Primary Dx); Optic nerve asymmetry, right; Cortical age-related cataract of both eyes; Presbyopia 12/21/2024 Travel 12/17/2024 3:15 PM EDT Office Visit [address] [address] Mihaela Ochoa CNP Plantar wart of right foot (Primary Dx) 12/17/2024 Travel 12/17/[address] [address] Kathy Mcneill MD Nurse Triage 12/17/[address] [place] [address] Kathy Mcneill MD 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 [...] your housing situation today? I have pamela nerissa 12/30/[address] you li [...] - PCV) 1992 COVID-19 Vaccine ( season) 2025 03/02/2021, 07/16/2020, 06/25/2020 Influenza Vaccine (#1) 2025 4, 04/08/2023, 02/07/2022, Additional history exists Depression Monitoring [...] Results * Referral to Sleep Medicine (02/03/2025) [facility] OUTPATIENT REFERRAL ORDER EVAN Final Result * Influenza A B2 ID NOW (Santoyo) (01/20/2025 12:26 PM EDT) IDNOW SERIAL# [id number] [facility] Influenza A Negative Negative [facility] Influenza B2 Negative Negative [facility] Influenza A B2 Note See Note [facility] Comment:The Santoyo ID NOW In [...] LAB MICROBIOLOGY - GENERAL ORDERABLES Final Result [facility] [address], [place] [phone] * COVID-19 ID NOW (SANTOYO) (01/20/2025 12:26 PM EDT) IDNOW SERIAL# [id number] [facility] COVID-19 TEST Negative Negative [facility] COVID-19 NOTE See Note [facility] Comment: Results are for the identification of SARS-CoV2 RNA. TheSARS-CoV2 RNA is generally detectable in respiratory samplesduring the acute phase of infection. Positive results areindicative of the presence of SARS-CoV-2 RNA; clinicalcorrelation with patient history and other diagnosticinformation is necessary to determine patient infectionstatus. Positive results do not rule out bacterial infectionor co- infection with other viruses.Testing facilities within the [place] and itsterritories are required to report all [...] use by authorized laboratories.Testing performed on the ClearFit NOW utilizing NAAT. 01/20/2025 12:2 6 PM EDT 01/20/2025 12:29 PM EDT us Generic External Data Provider LAB MOLECULAR REFUGIO GNOSTICS ORDERABLES Final Result [facility] [address] [place] [phone] * Strep A Nucleic Acid (01/20/2025 12:25 PM EDT) IDNOW SERIAL# [id number] [facility] Strep A Nucleic Acid Negative Negative [facility] Comment:All test results mus t [...] LAB MICROBIOLOGY - GENERAL ORDERABLES Final Result [facility] [address] [place] [phone] * XR Chest 2 Views (01/20/2025 12:25 PM EDT) Anatomical Region Laterality Modality Chest Radiographic Noa ging 01/20/2025 12:2 5 PM EDT Narrative 01/20/2025 12:37 PM EDT [address] [address] XRay Report Signed Patient: Mulu Balderas MR#: [id number] : 1975 Acct:[id number] Age/Sex: 49 / F ADM Date: 01/20/25 Loc: HO.ED Attending Dr: Ordering Physician: Fernanda Garcia Date of Service: 01/20/25 Procedure(s): XR chest 2V Accession Number(s): [id number] cc: Kathy Mcneill; Fernanda Garcia Reason for [...] 01/20/25 1234 DD/ 1225 TD/TT: 01/20/25 1229 Parliamentary Librarian: Procedure Note Donotuseinterpreter, Image - 01/20/[address] [address] XRay Report Signed Patient: Mulu BalderasMR#: [id number] : 1975Acct:[id number] Age/Sex: 49 / FADM Date: 01/20/25 Loc: HO.ED Attending Dr: Ordering Physician: Fernanda Garcia Date of Service: 01/20/25 Procedure(s): XR chest 2V Accession Number(s): [id number] cc: Kathy Mcneill; Fernanda Garcia Reason for [...] 01/20/25 1234 DD/ 1225 TD/TT: 01/20/25 1229 Parliamentary Librarian: [facility] External Provider IMG XR PROCEDURES Final Result * (ABNORMAL) Vitamin D, 25-Hydroxy, Total, Immunoassay (12/29/2024 1:49 PM EDT) Vitamin D 25-OH Total 25.2(L) >30 ng/mL [facility] Comment: Health Based Reference Values*< 20 ng/mL Xpcvojiav52-95 ng/mL Insufficient> 30 ng/mL Sufficient*Teresa GARCIA. N [...] 1:49 PM EDT 12/29/2024 4:17 PM EDT [facility] LAB BLOOD ORDERABLES Veena l Result Performing Organization Address [facility] de Phone Number [facility] [address] [place] [phone] * (ABNORMAL) Vitamin B12/Folate, Serum Panel (12/29/2024 1:49 PM EDT) Vitamin B12 184(L) 200 - 900 pg/mL [facility] Comment:NORMAL 200-900 PG/ML INDETERMINATE 160-199 PG/ML DEFICIENT < 160 PG/ML Folate 9.8 > or = 4.0 ng/mL [facility] Comment:Reference Values:> o r = 4.0 ng/mL< 4.0 ng/mL suggests folate deficiency Methotrexate, aminopterin and folinic acid(leucovorin) are chemotherapeutic agents whose molecularstructures are similar to folate; therefore, the Architectfolate assay cannot be used for patients using these drugs. Blood Venous blood specimen / Unknown 12/29/2024 1:49 PM EDT 12/29/2024 4:17 PM EDT [facility] LAB BLOOD ORDERABLES Veena l Result Performing Organization Address [facility] de Phone Number [facility] [address] [place] [address] [phone] * TSH W/Reflex to FT4 (12/29/2024 1:49 PM EDT) Pathologist [facility] TSH reflex Free T4 3.21 0.32 - 4.0 uIU/mL [facility] Blood Venous blood specimen / Unknown 12/29/2024 1:49 PM EDT 12/29/2024 4:17 PM EDT [facility] LAB BLOOD ORDERABLES Veena l Result [facility] [address] [place] [phone] [phone] * CBC auto differential (12/29/2024 1:49 PM EDT) Pathologist [facility] White Blood Count 7.7 4.8 - 10.8 X10*3/uL [facility] Red Blood Count 4.41 4.20 - 5.50 X10*6/uL [facility] Hemoglobin 13.7 12.0 - 16.0 g/dl [facility] Hematocrit 41.2 37.0 - 47.0 % [facility] Mean Corpuscular Volume 93.4 80.0 - 98.0 fL [facility] Mean Corpuscular Hemoglobin 31.1 27.0 - 33.0 pg [facility] Mean Corpuscular HGB Conc 33.3 31.0 - 35.0 g/dl [facility] Red Cell Distribution Width 12.6 11.0 - 16.0 % [facility] Platelet Count 181 160 - 400 X10*3/uL [facility] Mean Platelet Volume 11.6 9.4 - 12.3 fL [facility] Neutrophils Percent Auto 55.0 45 - 73 % [facility] Imm Gran Pct Auto 0.4 0.0 - 0.4 % [facility] Lymphocytes Percent Auto 35.2 20 - 40 % [facility] Monocytes Percent Auto 7.9 2 - 11 % [facility] Eosinophils Percent Auto 0.8 0 - 4 % [facility] Basophils Percent Auto 0.7 0 - 2 % [facility] NRBC Pct Auto 0.0 0.0 - 0.2 /100WBC [facility] Neutrophils Absolute Auto 4.2 2.0 - 8.3 x10*3/uL [facility] Imm Gran Abs Auto 0.03 0.00 - 0.03 X10*3/uL [facility] Lymphocytes Absolute Auto 2.7 1.2 - 4.9 X10*3/uL [facility] Monocytes Absolute Auto 0.6 0.1 - 1.2 X10*3/uL [facility] Eosinophils Absolute Auto 0.1 0.0 - 0.4 X10*3/uL [facility] Basophils Absolute Auto 0.1 0.0 - 0.2 X10*3/uL [facility] NRBC Abs Auto 0.000 0.0 - 0.012 X10*3/uL [facility] Blood Venous blood specimen / Unknown 12/29/2024 1:49 PM EDT 12/29/2024 4:17 PM EDT [facility] LAB BLOOD ORDERABLES Veena l Result Performing Organization Address [facility]/State/ZIP Co de Phone Number [facility] [address] [place] [phone] * Iron And Total Iron Binding Capacity (12/29/2024 1:49 PM EDT) Iron 112 30 - 160 mcg/dL [facility] Total Iron Binding Capacity 259 228 - 428 mcg/dL [facility] Percent Iron Saturation 43 15 - 50 % [facility] Unsaturated Iron Binding 147 ug/dL [facility] Blood Venous blood specimen / Unknown 12/29/2024 1:49 PM EDT 12/29/2024 4:17 PM EDT [facility] LAB BLOOD ORDERABLES Veena l Result Performing Organization Address City/[facility]/ZIP Co de Phone Number [facility] [address] [place] [phone] * (ABNORMAL) Comprehensive Metabolic Panel (12/29/2024 1:49 PM EDT) Sodium 144 135 - 145 mmol/L [facility] Potassium 4.2 3.3 - 5.1 mmol/L [facility] Chloride 110(H) 96 - 108 mmol/L [facility] Carbon Dioxide 28 22 - 29 mmol/L [facility] Anion Gap 10(L) 12 - 20 [facility] Urea Nitrogen (BUN) 11 9 - 16 mg/dL [facility] Creatinine, Serum 0.68 0.5 - 1.4 mg/dL [facility] Estimated Glomerular Filt Rate >60 [facility] Comment:Chronic Kidney Disea se: Estimated GFR < 60 mL/min/1.45j6Ychpzg Kidney Disease: Estimated GFR < 15 mL/min/1.73m2 Glucose 81 60 - 115 mg/dL [facility] Calcium 9.7 8.4 - 10.2 mg/dL [facility] Bilirubin, Total 0.3 0.0 - 1.0 mg/dL [facility] Aspartate Amino Transferase 25 5 - 31 U/L [facility] Alanine Aminotransferase 21 0 - 31 U/L [facility] Total Protein 7.0 6.5 - 8.0 g/dL [facility] Albumin Level 4.4 3.5 - 5.0 g/dL [facility] Alkaline Phosphatase 87 39 - 117 U/L [facility] Blood Venous blood specimen / Unknown 12/29/2024 1:49 PM EDT 12/29/2024 4:17 PM EDT Miahela Ochoa [facility] LAB BLOOD ORDERABLES Veena l Result Performing Organization Address [facility]/ZIP Co de Phone Number [facility] [address] [place] [phone] * OCT, Optic Nerve - OU [...] HPV nRNA E6/E7 Not Detected Not Detected [facility] Comment:Methodology: Transcr iption-Mediated AmplificationThis assay detects E6/E7 viral messenger RNA (mRNA) from 14high-risk HPV types (16,18,31,33,35,39,45,51,52,56,58,59,66,68).Cervical sources are required for HPV testing.If a vaginal source from a patient who has had atotal hysterectomy with removal of cervix wassubmitted, please contact the testing laboratoryfor alternative testing options.For additional information, please refer tohttp://education.questdiagnostics.com/faq/IVW536j7(This link if provided for information/educational purposes only.)THIS TEST WAS PERFORMED AT:[employer] [place] [phone] CRUZ MD HPV mRNA E6/E7 TNP [facility] HPV 16 RNA TNP [facility] HPV 18/45 RNA TNP [facility] 05/10/2023 4:56 PM EST 05/14/2023 8:00 AM EST us Kathy Mcneill MD LAB CYTOLOGY ORDERABLES Final Result Performing Organization Address City/State/[facility] Co de Phone Number [facility] [address] [place] [phone] * Pap Smear (05/10/2023 4:56 PM EST) 05/10/2023 4:56 PM EST 05/14/2023 8:00 AM EST Narrative [facility] - 05/17/2023 1:44 PM EST ----- ------- Name: Mulu Balderas Age/Sex: 48/F : 1975 Unit#: [id number] Attend Dr: Kathy Mcneill Re05/10/23 Status: DEP REF Location: HO.HHCLNP Disch: ----- ------- SPEC : [id number] RECD: 05/14/23 STATUS: MAGDALENA CARREON NUM: [id number] NORTH: 05/10/23 [facility] DR: Kathy Mcneill ENTERED: 05/14/23 SP TYPE: Pap Smr OTHR DR: ORDERED: Pap Smear Interpretation Satisfactory for evaluation. Negative for intraepithelial lesion or malignancy. HPV mRNA E6/E7: NOT DETECTED This assay detects E6/E7 viral messenger RNA (mRNA) from 14 high-risk HPV types (16, 18, 31, 33, 35, 39, 45, 51, 52, 56, 58, 59, 66, 68) HPV testing performed by [employer], [place], [place]. See reference laboratory portion of the EMR for entire report. Clinical Information LMP: Menopause Previous PAP test: Unknown date/findings Material Received ThinPrep-Cervical ----- ------- Signed (signature on file) INNA Cobb (ASCP) 05/17/23 1344 ----- ------- END OF REPORT Kathy Mcneill MD LAB CYTOLOGY ORDERABLES Final Result [facility] [address] [place] [address] [phone] * Hepatitis C Ab (04/08/2023 2:44 PM EST) Hepatitis C Antibody Nonreactive Nonreactive [facility] Comment:Antibodies to HCV no t detected; does not exclude early acuteHCV infection. Blood Venous blood specimen / Unknown 04/08/2023 2:44 PM EST 04/08/2023 4:15 PM EST Kathy Mcneill MD LAB BLOOD ORDERABLES Final Res ult Performing Organization Address City/[facility]/ZIP Co de Phone Number [facility] [address] [place] [phone] * HIV-1/2 Antigen and Antibodies, Fourth Generation, with Reflexes (04/08/2023 2:44 PM EST) HIV AB/AG Nonreactive Nonreactive [facility] Comment:HIV-1 p24 Ag and/or HIV-1/HIV-2 Ab not detected.A test result that is nonreactive does not exclude thepossibility of exposure to or infection with HIV-1 and/orHIV-2. Nonreactive results in this assay for individualswith prior exposure to HIV-1 and/or HIV-2 may be due toantigen and antibody levels that are below the limit ofdetection of this assay.The [employer] HIV Ag/Ab Combo assay result andsupplemental assay results should be interpreted inconjunction with the patient's clinical presentation,history and other laboratory results. If the results areinconsistent with clinical evidence, additional testing issuggested to confirm the result. Blood Venous blood specimen / Unknown 04/08/2023 2:44 PM EST 04/08/2023 4:15 PM EST Kathy Mcneill MD LAB BLOOD ORDERABLES Final Res ult Performing Organization Address City/[facility]/ZIP Co de Phone Number [facility] [address] [place] [phone] [phone] * (ABNORMAL) LIPID PANEL, STANDARD (01/18/2021 [...] factors. LDL-C is now calculated using the Devon calculation, which is a validated novel method providing better accuracy than the Friedewald equation in the estimation of LDL-C. Johnnie SS et al. LAURENT. 2013;310(19): 7771-0770 (http://education.Vivino.Wayna/faq/NBN238) Non-HDL Cholesterol 71 <130 mg/dL (calc) [facility] Comment: For patients with diabetes plus 1 major ASCVD risk factor, treating to a non-HDL-C goal of <100 mg/dL (LDL-C of <70 mg/dL) is considered a therapeutic option. Triglycerides 110 <150 mg/dL [facility] 01/18/2021 2:59 PM EDT Dayan Diez [facility] LAB BLOOD ORDERABLES Final Res ult [facility] [address] from Last 3 Months or Most Recently Relevant to Health Maintenance Insurance [employer] C3 Care Teams Multi Spindle Operator Relationship Specialty Start Date End Date Kathy Mcneill MD [address] [place] [address] PCP - General Family Medicine 01/06/22 Shayan Douglas FNP [address] [place], [place] Nurse Practitioner Family Medicine 04/16/23 Virgilio Vazquez, RN [address] [place] [phone] Registered Nurse Family Medicine 01/21/25 Chrissy Villalobos 01/21/25
--- OUTSIDE RECORDS SUMMARY | 2025-03-16 10:05 | XMS_ITS ---
Author Organization [employer] Address [address] [place] [address] [address] [place] [address] Care Team Providers Care Spudder Name Role Phone Kathy Mcneill MD Primary Care Provider [phone] Shayan Douglas Unavailable Unavailable Virgilio Vazquez RN Unavailable [phone] Chrissy Villalobos Unavailable CM Complex Status:Outreach In Progress (Enrolling) Start date:01/21/2025 Enrollment reason:ADT Feed Overview ADT- [facility] 01/20/25 Case Team Name Relationship Phone Virgilio Vazquez RN(Responsible Staff) [facility] [phone] Continued Care and Services Coordination
--- OUTSIDE RECORDS SUMMARY | 2025-03-16 10:05 | XMS_ITS | Encounter Summary ---
Author Organization [employer] Address [address] [facility] [address] [place] [address] Care Team Providers Care Shop Director Name Role Phone Kathy Mcneill MD Primary Care Provider [phone] Shayan Douglas Unavailable Unavailable Virgilio Vazquez RN Unavailable [phone] Chrissy Villalobos Unavailable Encounter Details Date Type Department Care Team (Late st Contact Info) Description 02/11/2025 Refill [facility] [address] [place] [address] Kathy Mcneill MD [address] [place] [address] Migraine without aura and without status migrainosus, [...] documented as of this encounter Care Teams Shop Director Relationship Specialty Start Date End Date Kathy Mcneill MD [address] [place] [address] PCP - General Family Medicine 01/06/22 Shayan Douglas FNP [address] [place] [address] Nurse Practitioner Family Medicine 04/16/23 Virgilio Vazquez, RN [address] [place] [address] Registered Nurse Family Medicine 01/21/25 Chrissy Villalobos 01/21/25 documented as of this encounter
== END 2025-03-16 09:18 | disposition home or self-care (01) ==
LOC: HO.MAMMO 09:17
PROVIDERS: PCP General Practice; Visit Provider Surgery
DX: N64.4 Mastodynia (principal); N63.14 Unspecified lump in the right breast, lower inner quadrant; Z85.3 Personal history of malignant neoplasm of breast
CPT/HCPCS: 76642; 77062; 77065

== ENCOUNTER → 2025-03-16 09:30 | Outpatient (BNV) | payer MEDICAID, SELFPAY | PROVIDERS: PCP General Practice; Visit Provider Radiology Body Imaging | DX: R92.8 Other abnormal and inconclusive findings on diagnostic imaging of breast (principal); Z85.3 Personal history of malignant neoplasm of breast | CPT/HCPCS: 76642; 77061; 77065 ==